=== PATIENT | female | born 1955 | race Caucasian/White ===

== ENCOUNTER → 2016-12-23 | Outpatient (CLI) | payer BC, OTHER ==
[2015-07-01 07:36] VITALS: BP 116/71
[~2016-12-23] MED LIST: COLE1TAB2 PO; CYCL10TA2 PO; DIPH50CA PO; GABA800T2 PO; HYDR10SY16 PO; NAPR220T70 PO; OXYC-328 PO; PANT40TA3 PO; SUMA100T3 PO; TRAM50TA PO; TRIA15CR TP; ZOLP5TAB5 PO
--- NOTE | 2016-12-23 13:17 | RAD ---
DATE: 12/23/2016 EXAM: DIGITAL SCREEN BILAT W/CAD HISTORY: Routine screening COMPARISON: Baseline study This study was interpreted with the benefit of Computerized Aided Detection (CAD). The breast parenchyma shows scattered fibroglandular densities. Breast parenchyma level B. FINDINGS: There is an 8 mm smooth lobulated nodule projected over the posterolateral aspect of the left breast, probably lying at the 3-4 o'clock location. This is most likely an intramammary lymph node. Multiple other similar lymph node type densities are present in both axillary regions. No other unusual breast densities are seen. No microcalcifications are identified. IMPRESSION: Small left breast nodule as described above. A left breast ultrasound is suggested for further evaluation. BI-RADS CATEGORY: 0 INCOMPLETE: NEEDS ADDITIONAL IMAGING EVALUATION AND/OR PRIOR MAMMOGRAMS FOR COMPARISON. RECOMMENDED FOLLOW-UP: ADD ADDITIONAL IMAGING PQRS compliance statement: Patient information was entered into a reminder system with a target due date for the next mammogram. Mammography is a sensitive method for finding small breast cancers, but it does not detect them all and is not a substitute for careful clinical examination. A negative mammogram does not negate a clinically suspicious finding and should not result in delay in biopsying a clinically suspicious abnormality. "Our facility is accredited by the [employer] Mammography Program."
--- NOTE | 2016-12-23 17:58 | RAD ---
Right knee, 2 views, 12/23/2016: History: Right anterior knee pain No fracture or dislocation is identified. The knee joint space is well-preserved. There is no radiographic evidence of a joint effusion. IMPRESSION: No acute right knee abnormality is detected.
== END | disposition home or self-care (01) ==
LOC: MAMMO 10:30
PROVIDERS: ATTEND Family Medicine
DX: Z12.31 Encounter for screening mammogram for malignant neoplasm of breast (principal); M25.561 Pain in right knee
CPT/HCPCS: 73560; G0202; 77067

== ENCOUNTER → 2017-01-06 | Outpatient (CLI) | payer BC, OTHER ==
[2015-07-01 07:36] VITALS: BP 116/71
--- NOTE | 2017-01-06 10:17 | RAD ---
Ultrasound of the left breast 01/06/2017 Clinical history: Mass seen within the posterior aspect of the left breast on recent mammogram. Technique: A real-time ultrasound examination of the left breast from the 3 to 5:00 position was performed. Multiple images were obtained. Findings: Comparison is made to the patient's mammogram dated 12/23/2016. Two small rounded oval-shaped echogenic masses are seen within the left breast which measure 3 mm and 8 mm in size. They are consistent with small lipomas. The nodule seen within the posterior aspect of the left breast is not visualized on sonography. Its mammographic appearance is consistent with an intramammary lymph node. No significant solid mass is seen within the visualized portions of the left breast. Impression: The nodule seen on the patient's recent mammogram is not visualized by ultrasound. Its mammographic appearance is consistent with an intramammary lymph node. I would recharacterize the patient's mammogram as a BI-RADS Category 2 benign findings with a recommendation for routine yearly screening mammography for follow-up. Patient information was entered into the reminder system with a target date for the patient's next screening mammogram of 12/23/2017.
== END | disposition home or self-care (01) ==
LOC: US 15:46
PROVIDERS: ATTEND Family Medicine
DX: N63 Unspecified lump in breast (principal)
CPT/HCPCS: 76641

== ENCOUNTER 2017-02-18 15:58 | Emergency (ER) | payer BC, OTHER ==
[~2017-02-18] VITALS: Ht 171.4 cm; Wt 83.9 kg
[2017-02-18] MEDS ORDERED: HYDROcodone/APAP 5/325MG 1 TAB TABLET PO ONE (16:30)
--- NOTE | 2017-02-18 16:57 | RAD ---
Right RIBS with chest, 02/18/2017: History: Right-sided pain, injury No rib fracture is identified. There is no evidence of underlying pneumothorax, hemothorax or pulmonary infiltrate. The heart size is normal. IMPRESSION: No acute right rib abnormality is detected.
[2017-02-18] MEDS ORDERED: HYDR-971 PO (17:20)
--- NOTE | 2017-02-18 17:20 | PHYS DOC ---
Past Medical History Past Medical History: Arthritis, Fibromyalgia, [place], Migraines Additional Past Medical Histor: heart murmur, osteoporosis Past Surgical History: Cholecystectomy, Hysterectomy Additional Past Surgical Histo: laparoscopy Alcohol Use: None Drug Use: None Adult General Chief Complaint Chief Complaint: RIB PAIN HPI HPI Patient is a 61 year old female who presents here today complaining of right sided rib pain that occurred yesterday while she was leaning on a rock wall. Patient denies any history of hypertension diabetes liver longer kidney problems. Patient has had a history of seizures in the distant past. Patient has a history of a cholecystectomy as well as a hysterectomy. Patient denies any heart problems in the past although she reports that she was told she had a minor SC by her primary care physician but never received just didn't and had a normal exercise stress test. Patient does not smoke or drink. Patient denies any fevers shakes chills nausea vomiting or diarrhea. Patient reports she has a nonproductive cough that increases the pain when she coughs. Patient says the pain increases with deep inspiration. Patient reports that she's been taking Aleve for her pain. Review of Systems Review of Systems Constitutional: Denies fever or chills [] Eyes: Denies change in visual acuity, redness, or eye pain [] All other review systems are negative except as documented in the history of present illness portion. Current Medications Current Medications Current Medications Medications (Trade) Dose Ordered Sig/Eder Start Time Stop Time Status Last Admin Dose Admin Acetaminophen/ Hydrocodone Bitart (Lortab 5/325) 1 tab 1X ONCE 02/18/17 16:30 02/18/17 16:31 DC 02/18/17 16:36 1 TAB Allergies Allergies Allergies Coded Allergies Type Severity Reaction Last Updated Verified phenytoin Allergy Intermediate rash 06/30/15 Yes Physical Exam Physical Exam Review of systems: Constitutional: Denies fever or chills Eyes: Denies change in visual acuity, redness, or eye pain ] All other review systems are negative except as documented in the history of present illness portion. Physical exam: Constitutional: Well developed, well nourished, no acute distress, non-toxic appearance. [] HENT: Normocephalic, atraumatic, bilateral external ears normal, Eyes: conjunctiva normal, no discharge. [] Neck: Normal range of motion, no tenderness, supple, no stridor. [] Cardiovascular:Heart rate regular rhythm, Lungs & Thorax: Bilateral breath sounds clear to auscultation [] Abdomen: Bowel sounds normal, soft, no tenderness, no masses, no pulsatile masses. [] Skin: Warm, dry, no erythema, no rash. [] Back: No tenderness, no CVA tenderness. [] Extremities: No tenderness, no cyanosis, no clubbing, ROM intact, no edema. [] Neurologic: Alert and oriented X 3, normal motor function, normal sensory function, no focal deficits noted. [] Psychologic: Affect normal, judgement normal, mood normal. [] Patient's physical exam was significant for tenderness to palpation to her right lower ribs. Patient has no tenderness palpation to her right upper quadrant. Patient not present with signs or symptoms consistent with abdominal pain or liver injury. Patient has no crepitance. Patient's lungs are clear. Current Patient Data Vital Signs Vital Signs Date Time Temp Pulse Resp B/P (MAP) Pulse Ox O2 Delivery O2 Flow Rate FiO2 02/18/17 16:36 20 95 Room Air 02/18/17 16:07 97.6 73 147/70 (95) 97.6 EKG EKG [] Radiology/Procedures Radiology/Procedures [] Impressions: Chest x-ray revealed no acute fracture or pneumothorax. By ER physician. Course & Med Decision Making Course & Med Decision Making Pertinent Labs and Imaging studies reviewed. (See chart for details) []This 61-year-old female who presents here today secondary to right lower rib pain secondary to likely traumatic injury from leaning up against a brick wall. Patient's x-rays unremarkable. Patient's exam is unremarkable except for tenderness to palpation. Patient be discharged home with adequate analgesia instructions follow-up with primary care physician. Efren Disclaimer Efren Disclaimer This electronic medical record was generated, in whole or in part, using a voice recognition dictation system. Departure Departure Impression: Primary Impression: Costochondral chest pain Additional Impressions: Costochondritis, acute Rib injury Disposition: HOME, SELF-CARE Condition: IMPROVED Referrals: BRADLEY SOSA MD (PCP) Patient Instructions: Chest Wall Pain Scripts Hydrocodone/Apap 5-325 (NORCO 5-325 TABLET) 1 Each Tablet 1 TAB PO QID Y for PAIN, #10 TAB Prov: MO MCMAHAN MD 9/22/17 Problem Qualifiers MO MCMAHAN MD Feb 18, 2017 17:20
[2017-02-18 17:30] VITALS: BP 142/73
== END 2017-02-18 17:41 | disposition home or self-care (01) ==
LOC: ER 15:58
DX: S29.9XXA Unspecified injury of thorax, initial encounter (principal); M94.0 Chondrocostal junction syndrome [Tietze]; M19.90 Unspecified osteoarthritis, unspecified site; M79.7 Fibromyalgia; M81.0 Age-related osteoporosis without current pathological fracture; I25.2 Old myocardial infarction; G43.909 Migraine, unspecified, not intractable, without status migrainosus; Z88.8 Allergy status to other drugs, medicaments and biological substances; X58.XXXA Exposure to other specified factors, initial encounter; Y93.89 Activity, other specified; Y92.89 Other specified places as the place of occurrence of the external cause; Y99.8 Other external cause status
CPT/HCPCS: 71101; 99284-25

== ENCOUNTER → 2017-11-10 | Outpatient (CLI) | payer BC, OTHER ==
[~2017-11-10] MED LIST changes: -COLE1TAB2 PO; +CONTRAST GIVEN. MC; -CYCL10TA2 PO; -DIPH50CA PO; -GABA800T2 PO; -HYDR10SY16 PO; -NAPR220T70 PO; -OXYC-328 PO; -PANT40TA3 PO; -SUMA100T3 PO; -TRAM50TA PO; -TRIA15CR TP; -ZOLP5TAB5 PO
[2017-11-10] MEDS: IOHEXOL 300 MG/ML 100ML VIAL. IV (09:22)
== END | disposition home or self-care (01) ==
LOC: CT 08:51
DX: R91.8 Other nonspecific abnormal finding of lung field (principal)
CPT/HCPCS: 71260; Q9967

== ENCOUNTER → 2018-05-05 | Outpatient (CLI) | payer BC, OTHER ==
[2017-08-20 15:45] VITALS: BP 135/72
[~2018-05-05] MED LIST changes: +AMOX875T PO; +BUTA1TAB23 PO; +COLE1TAB2 PO; -CONTRAST GIVEN. MC; +CYCL10TA2 PO; +DIPH50CA PO; +GABA800T3 PO; +HYDR-3164 PO; +HYDR10SY16 PO; +LACT1CAP19 PO; +NAPR220T70 PO; +OXYC1TAB22 PO; +PANT40TA3 PO; +SUMA100T3 PO; +TRAM50TA PO; +TRIA15CR TP; +ZOLP5TAB5 PO
--- NOTE | 2018-05-08 13:48 | RAD ---
DATE: May 05, 2018 EXAM: DIGITAL SCREEN BILAT W/CAD HISTORY: Screening study. COMPARISON: December 23, 2016. This study was interpreted with the benefit of Computerized Aided Detection (CAD). FINDINGS: Breast Density: FATTY The breast parenchyma is primarily fatty replaced. Breast parenchyma level density A.. There are no dominant suspicious masses, suspicious microcalcifications or evidence of architectural distortion. Again seen is a nodule within the lateral aspect of the left breast posteriorly which is stable and may represent a benign intramammary lymph node. IMPRESSION: No mammographic indicators for malignancy. BI-RADS CATEGORY: 2 BENIGN FINDING RECOMMENDED FOLLOW-UP: 12M 12 MONTH FOLLOW-UP PQRS compliance statement: Patient information was entered into a reminder system with a target due date May 06, 2019 for the next mammogram. Mammography is a sensitive method for finding small breast cancers, but it does not detect them all and is not a substitute for careful clinical examination. A negative mammogram does not negate a clinically suspicious finding and should not result in delay in biopsying a clinically suspicious abnormality. "Our facility is accredited by the [employer] Mammography Program." The patient's breast density may affect the ability of mammography to detect breast cancer. There are 4 categories of breast density, A, B, C and D. Breast density A means that most of the breast tissue is replaced with adipose tissue and therefore is not dense. Breast density B means that the breast tissue is mildly dense and scattered. Breast density C means that the breast tissue is heterogeneously dense. Breast density D means that the breast tissue is very dense. Breast densities especially C and D may decrease the sensitivity of mammography to detect breast cancer. Therefore, the patient may benefit from 3-D breast mammography (3D breast tomography) as a part of their screening mammogram. Insurance may or may not pay for this additional imaging. The patient's breast density based on today's mammogram is category A.
== END | disposition home or self-care (01) ==
LOC: MAMMO 14:39
PROVIDERS: ATTEND Family Medicine
DX: Z12.31 Encounter for screening mammogram for malignant neoplasm of breast (principal)
CPT/HCPCS: 77067

== ENCOUNTER 2018-06-13 15:05 | Inpatient (IN) | payer BC, OTHER ==
[~2018-06-13] VITALS: Ht 170.2 cm; Wt 83.2 kg
[~2018-06-13 15:05] MED LIST changes: -GABA800T3 PO; +GABA800T5 PO; -PANT40TA3 PO; +PANT40TA77 PO
--- NOTE | 2018-06-13 15:17 | PHYS DOC ---
Past Medical History Past Medical History: Arthritis, Fibromyalgia, [place], Migraines Additional Past Medical Histor: heart murmur, osteoporosis Past Surgical History: Appendectomy, Cholecystectomy, Hysterectomy Additional Past Surgical Histo: laparoscopy Alcohol Use: None Drug Use: None Adult General Chief Complaint Chief Complaint: NEURO SYMPTOMS/DEFICITS [facility] HPI Patient is a 63 year old female who presents with vision changes. Patient states she was working at her job at [employer] around 9:00 this morning when she had onset of some vision change in the right eye. The patient does not have vision loss but she describes seeing a cervical in her visual field. The cervical does move and corresponds to her extraocular movements. No eye pain. No discharge. She has been well until onset of symptoms. Patient states the symptoms have caused her to feel mildly dizzy over the course of the day. No nausea or vomiting. Denies history of similar symptoms but does endorse a history of other chronic health problems including IBS, fibromyalgia, osteoarthritis. Review of Systems Review of Systems Constitutional: Denies fever Eyes: as described above HENT: Denies nasal congestion Respiratory: Denies cough or shortness of breath Cardiovascular: No additional information not addressed in HPI GI: Denies nausea or vomiting : Denies dysuria Musculoskeletal: Denies Integument: Denies rash or skin lesions Neurologic: Denies headache or focal neurologic complaints Endocrine: Denies polyuria All other systems were reviewed and found to be within normal limits, except as documented in this note. Current Medications Current Medications Current Medications Medications (Trade) Dose Ordered Sig/Eder Start Time Stop Time Status Last Admin Dose Admin Fluorescein Sodium (Ful-Florina) 1 strip 1X ONCE 06/13/18 16:00 06/13/18 16:01 Cancel Proparacaine HCl/ Fluorescein Sodium (Flucaine Eye Drops) 1 drop 1X ONCE 06/13/18 17:15 06/13/18 17:16 DC Tetracaine HCl (Tetracaine) 1 drop 1X ONCE 06/13/18 16:00 06/13/18 16:01 DC 06/13/18 16:57 1 DROP Allergies Allergies Allergies Coded Allergies Type Severity Reaction Last Updated Verified phenytoin Allergy Intermediate rash 06/30/15 Yes Physical Exam Physical Exam Constitutional: Well developed, well nourished, no acute distress, non-toxic appearance HENT: Normocephalic, atraumatic, bilateral external ears normal, oropharynx moist Eyes: PERRLA, EOMI, conjunctiva normal Neck: Normal range of motion, no bruits Cardiovascular:Heart rate regular rhythm, no murmur Lungs & Thorax: Bilateral breath sounds clear to auscultation Abdomen: Bowel sounds normal, soft, no tenderness Skin: Warm, dry, no erythema, no rash Extremities: No tenderness, no edema Neurologic: Alert and oriented X 3, normal motor function, cranial nerves II- XII intact bilaterally, normal steady gait. 5/5 motor strength in all extremities. Subjective vision defect described above. Psychologic: Affect normal, judgement normal, mood normal Current Patient Data Vital Signs Vital Signs Date Time Temp Pulse Resp B/P (MAP) Pulse Ox O2 Delivery O2 Flow Rate FiO2 06/13/18 17:42 58 16 99 06/13/18 15:10 98.6 171/81 (111) Room Air 98.6 Lab Values Laboratory Tests Test 06/13/18 15:30 06/13/18 16:45 White Blood Count 5.8 x10^3/uL (4.0-11.0) Red Blood Count 4.47 x10^6/uL (3.50-5.40) Hemoglobin 13.0 g/dL (12.0-15.5) Hematocrit 38.0 % (36.0-47.0) Mean Corpuscular Volume 85 fL (79-100) Mean Corpuscular Hemoglobin 29 pg (25-35) Mean Corpuscular Hemoglobin Concent 34 g/dL (31-37) Red Cell Distribution Width 13.3 % (11.5-14.5) Platelet Count 322 x10^3/uL (140-400) Neutrophils (%) (Auto) 55 % (31-73) Lymphocytes (%) (Auto) 31 % (24-48) Monocytes (%) (Auto) 9 % (0-9) Eosinophils (%) (Auto) 4 % (0-3) H Basophils (%) (Auto) 1 % (0-3) Neutrophils # (Auto) 3.2 x10^3uL (1.8-7.7) Lymphocytes # (Auto) 1.8 x10^3/uL (1.0-4.8) Monocytes # (Auto) 0.5 x10^3/uL (0.0-1.1) Eosinophils # (Auto) 0.2 x10^3/uL (0.0-0.7) Basophils # (Auto) 0.1 x10^3/uL (0.0-0.2) Sodium Level 143 mmol/L (136-145) Potassium Level 3.7 mmol/L (3.5-5.1) Chloride Level 107 mmol/L (98-107) Carbon Dioxide Level 28 mmol/L (21-32) Anion Gap 8 (6-14) Blood Urea Nitrogen 12 mg/dL (7-20) Creatinine 0.8 mg/dL (0.6-1.0) Estimated GFR (Cockcroft-Gault) 72.2 Glucose Level 101 mg/dL (70-99) H Calcium Level 8.8 mg/dL (8.5-10.1) Magnesium Level 2.1 mg/dL (1.8-2.4) Creatine Kinase 162 U/L (26-192) Troponin I Quantitative < 0.017 ng/mL (0.000-0.055) Vitamin B12 Level 437 pg/mL (247-911) Serum Folate 5.89 ng/ml (3.2-20.0) Thyroid Stimulating Hormone (TSH) 2.012 uIU/mL (0.358-3.74) Urine Collection Type Unknown Urine Color Yellow Urine Clarity Clear Urine pH 6.5 Urine Specific [place] 1.010 Urine Protein Negative mg/dL (NEG-TRACE) Urine Glucose (UA) Negative mg/dL (NEG) Urine Ketones (Stick) Negative mg/dL (NEG) Urine Blood Negative (NEG) Urine Nitrite Negative (NEG) Urine Bilirubin Negative (NEG) Urine Urobilinogen Dipstick 0.2 mg/dL (0.2 mg/dL) Urine Leukocyte Esterase Small (NEG) Urine RBC Occ /HPF (0-2) Urine WBC 1-4 /HPF (0-4) Urine Squamous Epithelial Cells Few /LPF Urine Bacteria Many /HPF (0-FEW) Urine Mucus Slight /LPF Laboratory Tests 06/13/18 15:30 Laboratory Tests 06/13/18 15:30 EKG EKG No STEMI Interpretation Time: 15:25 Radiology/Procedures Radiology/Procedures Findings: Axial images of the head were obtained without contrast. Ventricles are normal size. No intracranial hemorrhage, midline shift, or mass effect. Calcification along the third ventricle is again seen. Globes and optic nerves are unremarkable. Bilateral lakeshia bullosa noted. Impression: No intracranial hemorrhage. No suspicious acute process. Course & Med Decision Making Course & Med Decision Making Pertinent Labs and Imaging studies reviewed. (See chart for details) Is evaluated immediately on arrival to her room. The patient has no signs or symptoms of CVA or TIA. She is probably complaining of vision changes in the right eye. This could represent a floater, retinal problem, ocular migraine. Her neurologic exam is nonfocal. Will check head CT. We will do intraocular pressure check and visual acuities. We'll do ultrasound of the eye. Eye exam: + near vision in all visual miller OU: 20/70 OD: 20/200 OS: 20/70 IOP: 20 Slit Lamp exam: - normal lids and lacrimal glands - PERRLA - No FB seen. Normal conjunctiva - no cell or flare. Anterior chamber is clear - stained exam reveals no uptake, no leakage of fluid. no abrasions or other lesions present. - Bedside ocular ultrasound: vitreous appears clear, no retinal detachment seen 17:15: All results are reviewed. The patient has no acute findings on her CT scan. She did ambulate to the restroom although had some difficulty walking due to some lack of balance. She did require some assistance with ambulation. Her corrected vision is documented above. Slit-lamp exam noted above. Intraocular pressure is normal. Bedside ultrasound as above. I spoke to Dr. Couch, ophthalmology, who feels that her eye complaining can be further addressed on an outpatient basis. I also spoke to the neurologist chronograph operator, Dr. Rodriguez, who did recommend inpatient evaluation including MRI with and without contrast. Patient is given an aspirin in the ER. Some additional lab studies are ordered. She is admitted to telemetry. MRI was ordered to be done routine tomorrow. All results were discussed with the patient and all of her questions were answered prior to admission. Patient was agreeable to the plan of care. Dragon Disclaimer Dragon Disclaimer This electronic medical record was generated, in whole or in part, using a voice recognition dictation system. Departure Departure Disposition: ADMITTED INPATIENT Condition: STABLE Referrals: ADOLPH KENNEY MD (PCP) HAVEN COOK DO Jun 13, 2018 15:17
[2018-06-13 15:39] LABS: BASO # 0.1 x10^3/uL (0.0-0.2); BASO % 1 % (0-3); EOS # 0.2 x10^3/uL (0.0-0.7); EOS % 4 % (0-3); LYMPH # 1.8 x10^3/uL (1.0-4.8); LYMPH % 31 % (24-48); MEAN CORPUSCULAR HEMOGLOBIN 29 pg (25-35); MEAN CORPUSCULAR HGB CONC 34 g/dL (31-37); MEAN CORPUSCULAR VOLUME 85 fL (79-100); MONO # 0.5 x10^3/uL (0.0-1.1); MONO % 9 % (0-9); NEUT # 3.2 x10^3uL (1.8-7.7); NEUT % 55 % (31-73); PLATELET COUNT 322 x10^3/uL (140-400); RED BLOOD COUNT 4.47 x10^6/uL (3.50-5.40); RED CELL DISTRIBUTION WIDTH 13.3 % (11.5-14.5); WHITE BLOOD COUNT 5.8 x10^3/uL (4.0-11.0)
[2018-06-13 15:48] LABS: CALCIUM 8.8 mg/dL (8.5-10.1); CREATININE 0.8 mg/dL (0.6-1.0); GFR 72.2; MAGNESIUM 2.1 mg/dL (1.8-2.4); POTASSIUM 3.7 mmol/L (3.5-5.1)
--- NOTE | 2018-06-13 15:58 | EKG ---
[facility] [address] [place] [address] Test Date: 2018-06-13 Test Time: 15:22:22 Pat Name: EDUARDO TORRES Department: Room: Gender: F [employer]opter [employer]: : [id number] Requested By: HAVEN COOK Order Number: [id number] Reading MD: Harrison Broderick MD Measurements Intervals [place] Rate: 65 P: 39 MS: 206 QRS: -20 QRSD: 80 T: 42 QT: 372 QTc: 387 Interpretive Statements SINUS RHYTHM Electronically Signed On 06-15-2018 14:49:21 ENGINE TURNER by Harrison Broderick MD
[2018-06-13] MEDS ORDERED: FLUORESCEIN OPHTH TEST STRIP. OD ONE (16:00)
[2018-06-13] MEDS ORDERED: TETRACAINE 0.5% OPHTH SOLUTION 4ML BOTTLE. OD ONE (16:00)
--- NOTE | 2018-06-13 16:01 | RAD ---
Examination: CT HEAD WO CONTRAST History: SUDDEN ONSET , DIZZINESS, VISION CHANGES RT EYE Comparison/Correlation: 08/20/2017 CT head without contrast Findings: Axial images of the head were obtained without contrast. Ventricles are normal size. No intracranial hemorrhage, midline shift, or mass effect. Calcification along the third ventricle is again seen. Globes and optic nerves are unremarkable. Bilateral lakeshia bullosa noted. Impression: No intracranial hemorrhage. No suspicious acute process. Electronically signed by: Musa Wilson MD (06/13/2018 3:57 PM) [id number]
[2018-06-13 16:54] LABS: BILIRUBIN,URINE NEGATIVE (NEG); CLARITY,URINE CLEAR; COLOR,URINE YELLOW; NITRITE,URINE NEGATIVE (NEG); PH,URINE 6.5; PROTEIN,URINE NEGATIVE (NEG-TRACE); UROBILINOGEN,URINE 0.2 mg/dL (0.2 mg/dL)
[2018-06-13 17:01] LABS: BACTERIA,URINE MANY /HPF (0-FEW); RBC,URINE OCC /HPF (0-2); SQUAMOUS EPITHELIAL CELL,UR FEW /LPF
[2018-06-13] MEDS ORDERED: PROPARACAINE/FLUORESCEIN 0.5 ML OPHTH DROPS. OD ONE (17:15)
[2018-06-13] MEDS ORDERED: ASPIRIN CHEWABLE 81 MG TABLET. PO ONE (18:15)
[2018-06-13] MEDS ORDERED: ACETAMINOPHEN 325 MG TABLET. PO PRN (18:15)
[2018-06-13] MEDS ORDERED: ONDANSETRON PF 4 MG/2 ML VIAL. IV PRN (18:15)
[2018-06-13] MEDS ORDERED: ZOLPIDEM 5 MG TABLET. PO PRN (18:15)
[2018-06-13] MEDS ORDERED: LISINOPRIL 10 MG TABLET PO ONE (18:15)
--- NOTE | 2018-06-13 18:53 | NUR ---
completed on transfer to 675 with Bipin SAXENA Addendum: 06/13/18 at 1854 by NICO HINOJOSA RN Amended: Links added.
[2018-06-13 19:00] VITALS: BP 132/71
--- NOTE | 2018-06-13 19:12 | PDOC2 ---
NEUROLOGY CONSULT Date of Admission Date of Admission DATE: 06/13/18 TIME: 18:58 Reason for Consult Reason for Consult: IMPRESSION: Right eye vision disturbance on 06/13/18. Gait instability x 1 month. Headaches, migraine Hx. HTN. Heat murmur. RECOMMENDATIONS/PLAN: ASA 325 mg daily. Brain MRI w/o contrast. Lab: see orders. Further studies pending MRI results. Treat medical diseases. OT/PT. Discussed with her at bedside on 06/13/18. HISTORY OF THE PRESENT ILLNESS: This is a 63-year-old female patient who has been having symptoms of gait instability for about 1 month. She developed symptoms of right eye vision disturbance today on 06/13/18 described as seeing circles in waved lines, but her left eye vision was normal. She said she never has such symptoms before. She also has headaches especially in her right side of head. No focalized sensory or motor deficits. PAST MEDICAL HISTORY: Arthritis, Fibromyalgia, [place], Migraines heart murmur, osteoporosis. PAST SURGERY HISTORY: Appendectomy, Cholecystectomy, Hysterectomy, laparoscopy. ALLERGY: Reviewed. MEDICATIONS: Refer to [facility] FAMILY HISTORY: Her mother and 2 daughters have migraine headaches. SOCIAL HISTORY: Lives with her at home. Denies current smoking, drinking, and illicit drug use. She smoked 1 pack of cigarettes a day for more than 20 years, then quit about 18 years ago. REVIEW OF SYSTEMS: Constitutional: No malnutrition, weight loss, cachexia. Head: No traumatic brain or head injury. Skin: No edema, or rash. Ear: No infection. Eyes: No vision loss or color blindness. Nose: No bleeding or purulent discharges. Hearing: No hearing decrease. Neck: No injury. Breast: No history of cancer, masses,or discharges. Cardiac: Heart murmur. HTN. Pulmonary: Former smoker. GI: No GI ulcer, GI bleeding. Urinary/genital: UTI. Endocrinologic: No cousin face, craniofacial dysmorphism, polydactyly. Skeletomuscular: No muscular atrophy, deformity. Neurological: see HP. Psychiatric: Denies drug use/abuse. Otherwise, not [id number] review of systems. PHYSICAL EXAMINATION: General appearance is in subacute distress. HEENT: Normocephalic and nontraumatic. Eyes, nose, ears, and throat are unremarkable. Neck is supple. No lymphadenopathy. No crepitus. Cardiovascular: S1, S2, regular rate and rhythm. Pulmonary: Clear to auscultation bilaterally. Abdomen: Bowel sounds are positive. Abdomen is soft, nontender, and nondistended. Extremities: No rash, lesions, or edema. No restriction of range of motion NEUROLOGICAL EXAMINATION: Alert Oriented to time, place and person. PERRL. EOMI. CN: no focal findings. Muscle tone: within normal. Muscle strength: 5 DTR: 2+ Plantar reflex: Flexor response bilaterally Gait: not examined in bed. Sensory exam: no abnormal findings. No cerebellar signs elicited. F-T-N test fine. Current Medications Current Medications Current Medications Tetracaine HCl (Tetracaine) 1 drop 1X ONCE OD Last administered on 06/13/18at 16:57; Start 06/13/18 at 16:00; Stop 06/13/18 at 16:01; Status DC Fluorescein Sodium (Ful-Florina) 1 strip 1X ONCE OD ; Start 06/13/18 at 16:00; Stop 06/13/18 at 16:01; Status Cancel Proparacaine HCl/ Fluorescein Sodium (Flucaine Eye Drops) 1 drop 1X ONCE OD ; Start 06/13/18 at 17:15; Stop 06/13/18 at 17:16; Status DC Ondansetron HCl (Zofran) 4 mg PRN Q8HRS PRN IV NAUSEA/VOMITING; Start 06/13/18 at 18:15; Stop 06/14/18 at 18:14 Acetaminophen (Tylenol) 650 mg PRN Q4HRS PRN PO FEVER; Start 06/13/18 at 18:15 ; Stop 06/14/18 at 18:14 Gabapentin (Neurontin) 800 mg BID PO ; Start 06/13/18 at 21:00 Zolpidem Tartrate (Ambien) 5 mg PRN QHS PRN PO INSOMNIA; Start 06/13/18 at 18: 15 Lisinopril (Prinivil) 10 mg 1X ONCE PO Last administered on 06/13/18at 18:38; Start 06/13/18 at 18:15; Stop 06/13/18 at 18:16; Status DC Aspirin (Children'S Aspirin) 324 mg 1X ONCE PO Last administered on 06/13/18at 18:39; Start 06/13/18 at 18:15; Stop 06/13/18 at 18:16; Status DC Active Scripts Active Amoxicillin 875 Mg Tablet 1 Tab PO BID Culturelle (Lactobacillus Rhamnosus Gg) 1 Each Cap.sprink 1 Cap PO BID Qjppge-Hxptblje-Ftsr 50-325-40 (Butalb/Acetaminophen/Caffeine) 1 Each Tablet 1 Tab PO Q8HRS [place] 5-325 Tablet (Acetaminophen/Hydrocodone Bitart) 1 Each Tablet 1 Tab PO QID PRN Aleve (Naproxen Sodium) 220 Mg Tablet 440 Mg PO BID PRN Imitrex (Sumatriptan Succinate) 100 Mg Tablet 100 Mg PO ONCE PRN Reported Zolpidem Tartrate 5 Mg Tablet 1 Tab PO QHS Gabapentin 800 Mg Tablet 1 Tab PO TID Cyclobenzaprine Hcl 10 Mg Tablet 1 Tab PO QHS Colestipol Hcl 1 Gm Tablet 1 Gm PO TID Percocet 10-325 Mg Tablet (Oxycodone/Acetaminophen) 1 Each Tablet 1 Tab PO PRN Q6HRS Tramadol Hcl 50 Mg Tablet 1 Tab PO TID PRN Allergies Allergies: Allergies Coded Allergies Type Severity Reaction Last Updated Verified onion Allergy Intermediate Unknown 06/13/18 Yes phenytoin Allergy Intermediate rash 06/30/15 Yes ROS Review of System The patient denies any associated fevers, chills, headache, ear pain, rhinorrhea , sore throat, stiff neck, productive cough, chest pain, shortness of breath, back or flank pain, abdominal pain, nausea, vomiting, diarrhea, constipation, dysuria, rash, numbness, weakness, tingling, incontinence, difficulty ambulating, or diaphoresis. Physical Exam Physical Exam General: Well developed, well nourished, no acute distress, well appearing HEENT: Pupils equally round and reactive to light, EOMI, no discharge, normal conjunctiva Neck: Supple, no nuchal rigidity, no JVD, trachea midline, no tenderness Cardiac: RRR, no murmurs, no gallops, no rubs Chest/Lungs: CTAB, no wheeze, no rhonchi, no crackles Abdomen: soft, non-distended, no guarding, no peritoneal signs, non-tender Back: No tenderness Extremities: no edema, pulses intact, non-tender,capillary refill <3 sec bilateral upper and lower extremities, Neuro: Alert and oriented x 4, no focal deficits, normal speech Vitals Vitals: Vital Signs Date Time Temp Pulse Resp B/P (MAP) Pulse Ox O2 Delivery O2 Flow Rate FiO2 06/13/18 18:38 60 162/80 06/13/18 18:12 16 99 06/13/18 15:10 98.6 Room Air 98.6 Labs Labs Laboratory Tests Test 06/13/18 15:30 06/13/18 16:45 White Blood Count 5.8 x10^3/uL (4.0-11.0) Red Blood Count 4.47 x10^6/uL (3.50-5.40) Hemoglobin 13.0 g/dL (12.0-15.5) Hematocrit 38.0 % (36.0-47.0) Mean Corpuscular Volume 85 fL (79-100) Mean Corpuscular Hemoglobin 29 pg (25-35) Mean Corpuscular Hemoglobin Concent 34 g/dL (31-37) Red Cell Distribution Width 13.3 % (11.5-14.5) Platelet Count 322 x10^3/uL (140-400) Neutrophils (%) (Auto) 55 % (31-73) Lymphocytes (%) (Auto) 31 % (24-48) Monocytes (%) (Auto) 9 % (0-9) Eosinophils (%) (Auto) 4 % (0-3) Basophils (%) (Auto) 1 % (0-3) Neutrophils # (Auto) 3.2 x10^3uL (1.8-7.7) Lymphocytes # (Auto) 1.8 x10^3/uL (1.0-4.8) Monocytes # (Auto) 0.5 x10^3/uL (0.0-1.1) Eosinophils # (Auto) 0.2 x10^3/uL (0.0-0.7) Basophils # (Auto) 0.1 x10^3/uL (0.0-0.2) Sodium Level 143 mmol/L (136-145) Potassium Level 3.7 mmol/L (3.5-5.1) Chloride Level 107 mmol/L (98-107) Carbon Dioxide Level 28 mmol/L (21-32) Anion Gap 8 (6-14) Blood Urea Nitrogen 12 mg/dL (7-20) Creatinine 0.8 mg/dL (0.6-1.0) Estimated GFR (Cockcroft-Gault) 72.2 Glucose Level 101 mg/dL (70-99) Calcium Level 8.8 mg/dL (8.5-10.1) Magnesium Level 2.1 mg/dL (1.8-2.4) Troponin I Quantitative < 0.017 ng/mL (0.000-0.055) Vitamin B12 Level 437 pg/mL (247-911) Serum Folate 5.89 ng/ml (3.2-20.0) Thyroid Stimulating Hormone (TSH) 2.012 uIU/mL (0.358-3.74) Urine Collection Type Unknown Urine Color Yellow Urine Clarity Clear Urine pH 6.5 Urine Specific [place] 1.010 Urine Protein Negative mg/dL (NEG-TRACE) Urine Glucose (UA) Negative mg/dL (NEG) Urine Ketones (Stick) Negative mg/dL (NEG) Urine Blood Negative (NEG) Urine Nitrite Negative (NEG) Urine Bilirubin Negative (NEG) Urine Urobilinogen Dipstick 0.2 mg/dL (0.2 mg/dL) Urine Leukocyte Esterase Small (NEG) Urine RBC Occ /HPF (0-2) Urine WBC 1-4 /HPF (0-4) Urine Squamous Epithelial Cells Few /LPF Urine Bacteria Many /HPF (0-FEW) Urine Mucus Slight /LPF Laboratory Tests Test 06/13/18 15:30 06/13/18 16:45 White Blood Count 5.8 x10^3/uL (4.0-11.0) Red Blood Count 4.47 x10^6/uL (3.50-5.40) Hemoglobin 13.0 g/dL (12.0-15.5) Hematocrit 38.0 % (36.0-47.0) Mean Corpuscular Volume 85 fL (79-100) Mean Corpuscular Hemoglobin 29 pg (25-35) Mean Corpuscular Hemoglobin Concent 34 g/dL (31-37) Red Cell Distribution Width 13.3 % (11.5-14.5) Platelet Count 322 x10^3/uL (140-400) Neutrophils (%) (Auto) 55 % (31-73) Lymphocytes (%) (Auto) 31 % (24-48) Monocytes (%) (Auto) 9 % (0-9) Eosinophils (%) (Auto) 4 % (0-3) Basophils (%) (Auto) 1 % (0-3) Neutrophils # (Auto) 3.2 x10^3uL (1.8-7.7) Lymphocytes # (Auto) 1.8 x10^3/uL (1.0-4.8) Monocytes # (Auto) 0.5 x10^3/uL (0.0-1.1) Eosinophils # (Auto) 0.2 x10^3/uL (0.0-0.7) Basophils # (Auto) 0.1 x10^3/uL (0.0-0.2) Sodium Level 143 mmol/L (136-145) Potassium Level 3.7 mmol/L (3.5-5.1) Chloride Level 107 mmol/L (98-107) Carbon Dioxide Level 28 mmol/L (21-32) Anion Gap 8 (6-14) Blood Urea Nitrogen 12 mg/dL (7-20) Creatinine 0.8 mg/dL (0.6-1.0) Estimated GFR (Cockcroft-Gault) 72.2 Glucose Level 101 mg/dL (70-99) Calcium Level 8.8 mg/dL (8.5-10.1) Magnesium Level 2.1 mg/dL (1.8-2.4) Troponin I Quantitative < 0.017 ng/mL (0.000-0.055) Vitamin B12 Level 437 pg/mL (247-911) Serum Folate 5.89 ng/ml (3.2-20.0) Thyroid Stimulating Hormone (TSH) 2.012 uIU/mL (0.358-3.74) Urine Collection Type Unknown Urine Color Yellow Urine Clarity Clear Urine pH 6.5 Urine Specific [place] 1.010 Urine Protein Negative mg/dL (NEG-TRACE) Urine Glucose (UA) Negative mg/dL (NEG) Urine Ketones (Stick) Negative mg/dL (NEG) Urine Blood Negative (NEG) Urine Nitrite Negative (NEG) Urine Bilirubin Negative (NEG) Urine Urobilinogen Dipstick 0.2 mg/dL (0.2 mg/dL) Urine Leukocyte Esterase Small (NEG) Urine RBC Occ /HPF (0-2) Urine WBC 1-4 /HPF (0-4) Urine Squamous Epithelial Cells Few /LPF Urine Bacteria Many /HPF (0-FEW) Urine Mucus Slight /LPF SYLWIA CARBONE MD Jun 13, 2018 19:12
[2018-06-13] MEDS ORDERED: TOPIRAMATE 25 MG TABLET. PO SCH (21:00)
[2018-06-13] MEDS: GABAPENTIN 400 MG CAPSULE. PO SCH (21:34)
[2018-06-13 22:44] VITALS: BP 105/60
[2018-06-14 01:39] LABS: BARBITURATES NEG (NEG); BENZODIAZEPINES NEG (NEG); CANNABINOIDS NEG (NEG); COCAINE NEG (NEG); METHADONE NEG (NEG); OPIATES NEG (NEG); PHENCYCLIDINE NEG (NEG)
[2018-06-14 02:00] LABS: AMPHETAMINE/METHAMPHETAMINE NEG (NEG)
[2018-06-14] MEDS ORDERED: LISI10TA2 PO (02:15)
[2018-06-14] MEDS ORDERED: DICL75TA PO (02:15)
[2018-06-14 02:44] VITALS: BP 107/62
[2018-06-14 06:37] LABS: BASO # 0.1 x10^3/uL (0.0-0.2); BASO % 1 % (0-3); EOS # 0.2 x10^3/uL (0.0-0.7); EOS % 4 % (0-3); HEMATOCRIT 39.6 % (36.0-47.0); HEMOGLOBIN 13.4 g/dL (12.0-15.5); LYMPH # 1.5 x10^3/uL (1.0-4.8); LYMPH % 29 % (24-48); MEAN CORPUSCULAR HEMOGLOBIN 29 pg (25-35); MEAN CORPUSCULAR HGB CONC 34 g/dL (31-37); MEAN CORPUSCULAR VOLUME 85 fL (79-100); MONO # 0.5 x10^3/uL (0.0-1.1); MONO % 10 % (0-9); NEUT % 56 % (31-73); PLATELET COUNT 319 x10^3/uL (140-400); RED BLOOD COUNT 4.67 x10^6/uL (3.50-5.40); WHITE BLOOD COUNT 5.4 x10^3/uL (4.0-11.0)
[2018-06-14 07:00] VITALS: BP 117/67
[2018-06-14 07:02] LABS: CALCIUM 9.1 mg/dL (8.5-10.1); CREATININE 0.9 mg/dL (0.6-1.0); POTASSIUM 4.2 mmol/L (3.5-5.1)
[2018-06-14 07:05] LABS: CHOLESTEROL/HDL RATIO 3.9
[2018-06-14] MEDS ORDERED: ASPIRIN 325 MG TABLET PO SCH (08:00)
--- NOTE | 2018-06-14 08:03 | PDOC1 ---
History and Physical Date of Admission Date of Admission DATE: 06/13/18 Identification/Chief Complaint Chief Complaint Vision changes, unsteady gait Source Source: Patient History of Present Illness History of Present Illness Pt presented to the office yesterday afternoon c/o visual disturbances that had started that morning at 9am while at work. She describes it as a shadow just lateral to her right pupil. She said that she also was having word finding issues and being able to get words out when talking to her daughter that morning. She has been having gait issues, apparently, for the past month. Denies specific weakness or numbness and tingling anywhere. She has otherwise been doing well. Past Medical History Cardiovascular: HTN, Other Pulmonary: No pertinent hx CENTRAL NERVOUS SYSTEM: Other GI: GERD, Peptic Ulcer disease Heme/Onc: No pertinent hx Hepatobiliary: No pertinent hx Psych: No pertinent hx Musculoskeletal: Osteoarthritis Rheumatologic: Fibromyalgia Infectious disease: No pertinent hx ENT: Allergic Rhinitis Renal/: No pertinent hx Endocrine: Osteopenia Dermatology: No pertinent hx Past Surgical History Past Surgical History: Cholecystectomy, Hysterectomy Family History Family History: Cancer (dad- pancreatic cancer, sister- lymphoma), Diabetes, Heart Disease, Hypertension, Kidney Disease Social History Smoke: Quit ALCOHOL: none Drugs: None Current Problem List Problem List Problems Medical Problems: (1) Gait disturbance Status: Acute (2) Vision loss Status: Acute Current Medications Current Medications Current Medications Tetracaine HCl (Tetracaine) 1 drop 1X ONCE OD Last administered on 06/13/18at 16:57; Start 06/13/18 at 16:00; Stop 06/13/18 at 16:01; Status DC Fluorescein Sodium (Ful-Florina) 1 strip 1X ONCE OD ; Start 06/13/18 at 16:00; Stop 06/13/18 at 16:01; Status Cancel Proparacaine HCl/ Fluorescein Sodium (Flucaine Eye Drops) 1 drop 1X ONCE OD ; Start 06/13/18 at 17:15; Stop 06/13/18 at 17:16; Status DC Ondansetron HCl (Zofran) 4 mg PRN Q8HRS PRN IV NAUSEA/VOMITING; Start 06/13/18 at 18:15; Stop 06/14/18 at 18:14 Acetaminophen (Tylenol) 650 mg PRN Q4HRS PRN PO FEVER; Start 06/13/18 at 18:15 ; Stop 06/14/18 at 18:14 Gabapentin (Neurontin) 800 mg BID PO Last administered on 06/13/18at 21:34; Start 06/13/18 at 21:00 Zolpidem Tartrate (Ambien) 5 mg PRN QHS PRN PO INSOMNIA Last administered on at 21:34; Start 06/13/18 at 18:15 Lisinopril (Prinivil) 10 mg 1X ONCE PO Last administered on 06/13/18at 18:38; Start 06/13/18 at 18:15; Stop 06/13/18 at 18:16; Status DC Aspirin (Children'S Aspirin) 324 mg 1X ONCE PO Last administered on 06/13/18at 18:39; Start 06/13/18 at 18:15; Stop 06/13/18 at 18:16; Status DC Aspirin ([place] Aspirin) 325 mg [id number] PO ; Start 06/14/18 at 08:00 Topiramate (Topamax) 25 mg HS PO Last administered on 06/13/18at 21:34; Start at 21:00; Stop 06/14/18 at 08:01; Status DC Active Scripts Active Amoxicillin 875 Mg Tablet 1 Tab PO BID Culturelle (Lactobacillus Rhamnosus Gg) 1 Each Cap.sprink 1 Cap PO BID Dqujdg-Qwuojwut-Offq 50-325-40 (Butalb/Acetaminophen/Caffeine) 1 Each Tablet 1 Tab PO Q8HRS [place] 5-325 Tablet (Acetaminophen/Hydrocodone Bitart) 1 Each Tablet 1 Tab PO QID PRN Aleve (Naproxen Sodium) 220 Mg Tablet 440 Mg PO BID PRN Imitrex (Sumatriptan Succinate) 100 Mg Tablet 100 Mg PO ONCE PRN Reported Lisinopril 10 Mg Tablet 1 Tab PO HS Diclofenac Sodium 75 Mg Tablet.dr 1 Tab PO BID Zolpidem Tartrate 5 Mg Tablet 1 Tab PO QHS Gabapentin 800 Mg Tablet 1 Tab PO BID Cyclobenzaprine Hcl 10 Mg Tablet 1 Tab PO QHS Colestipol Hcl 1 Gm Tablet 1 Gm PO BID Percocet 10-325 Mg Tablet (Oxycodone/Acetaminophen) 1 Each Tablet 1 Tab PO PRN Q6HRS Tramadol Hcl 50 Mg Tablet 1 Tab PO PRN DAILY Allergies Allergies: Coded Allergies: onion (Verified Allergy, Intermediate, Unknown, 06/13/18) phenytoin (Verified Allergy, Intermediate, rash, 06/30/15) ROS General: YES: Chills; No: Night Sweats PSYCHOLOGICAL ROS: No: Anxiety, Depression Eyes: Yes Decreased vision, Yes Dry eyes; No Eye Pain, No Loss of vision HEENT: No: Nasal discharge, Sore Throat ALLERGY AND IMMUNOLOGY: No: Hives, Post Nasal Drip Hematological and Lymphatic: No: Bleeding Problems, Blood Clots Respiratory: No: Cough, Shortness of breath Cardiovascular: No Chest Pain, No Palpitations, No Edema Gastrointestinal: Yes Diarrhea; No Nausea, No Vomiting, No Abdominal Pain, No Constipation Genitourinary: No Dysuria, No Urgency Musculoskeletal: No Joint Pain, No Muscle Pain Neurological: Yes Impaired Coord/balance; No Numbness/Tingling Skin: No Rash, No Skin Lesion Changes Physical Exam General: Alert, Oriented X3, Cooperative, No acute distress HEENT: Atraumatic, PERRLA, EOMI, Mucous membr. moist/pink Lungs: Clear to auscultation, Normal air movement Heart: RRR, no rubs, no gallops, no murmurs Abdomen: Normal bowel sounds, Soft, No tenderness, No hepatosplenomegaly Extremities: No clubbing, No cyanosis, No edema Skin: No rashes, No breakdown, No significant lesion Neuro: Other (pt was falling to the right while in clinic yesterday) Psych/Mental Status: Mental status NL, Mood NL Vitals Vitals Vital Signs Date Time Temp Pulse Resp B/P (MAP) Pulse Ox O2 Delivery O2 Flow Rate FiO2 06/14/18 07:00 97.9 55 16 117/67 (84) 94 Room Air 97.9 Labs Labs Laboratory Tests Test 06/13/18 15:30 06/13/18 16:45 06/14/18 00:15 06/14/18 01:00 White Blood Count 5.8 x10^3/uL (4.0-11.0) Red Blood Count 4.47 x10^6/uL (3.50-5.40) Hemoglobin 13.0 g/dL (12.0-15.5) Hematocrit 38.0 % (36.0-47.0) Mean Corpuscular Volume 85 fL (79-100) Mean Corpuscular Hemoglobin 29 pg (25-35) Mean Corpuscular Hemoglobin Concent 34 g/dL (31-37) Red Cell Distribution Width 13.3 % (11.5-14.5) Platelet Count 322 x10^3/uL (140-400) Neutrophils (%) (Auto) 55 % (31-73) Lymphocytes (%) (Auto) 31 % (24-48) Monocytes (%) (Auto) 9 % (0-9) Eosinophils (%) (Auto) 4 % (0-3) Basophils (%) (Auto) 1 % (0-3) Neutrophils # (Auto) 3.2 x10^3uL (1.8-7.7) Lymphocytes # (Auto) 1.8 x10^3/uL (1.0-4.8) Monocytes # (Auto) 0.5 x10^3/uL (0.0-1.1) Eosinophils # (Auto) 0.2 x10^3/uL (0.0-0.7) Basophils # (Auto) 0.1 x10^3/uL (0.0-0.2) Sodium Level 143 mmol/L (136-145) Potassium Level 3.7 mmol/L (3.5-5.1) Chloride Level 107 mmol/L (98-107) Carbon Dioxide Level 28 mmol/L (21-32) Anion Gap 8 (6-14) Blood Urea Nitrogen 12 mg/dL (7-20) Creatinine 0.8 mg/dL (0.6-1.0) Estimated GFR (Cockcroft-Gault) 72.2 Glucose Level 101 mg/dL (70-99) Calcium Level 8.8 mg/dL (8.5-10.1) Magnesium Level 2.1 mg/dL (1.8-2.4) Creatine Kinase 162 U/L (26-192) Troponin I Quantitative < 0.017 ng/mL (0.000-0.055) < 0.017 ng/mL (0.000-0.055) Vitamin B12 Level 437 pg/mL (247-911) Serum Folate 5.89 ng/ml (3.2-20.0) Thyroid Stimulating Hormone (TSH) 2.012 uIU/mL (0.358-3.74) Urine Collection Type Unknown Urine Color Yellow Urine Clarity Clear Urine pH 6.5 Urine Specific [place] 1.010 Urine Protein Negative mg/dL (NEG-TRACE) Urine Glucose (UA) Negative mg/dL (NEG) Urine Ketones (Stick) Negative mg/dL (NEG) Urine Blood Negative (NEG) Urine Nitrite Negative (NEG) Urine Bilirubin Negative (NEG) Urine Urobilinogen Dipstick 0.2 mg/dL (0.2 mg/dL) Urine Leukocyte Esterase Small (NEG) Urine RBC Occ /HPF (0-2) Urine WBC 1-4 /HPF (0-4) Urine Squamous Epithelial Cells Few /LPF Urine Bacteria Many /HPF (0-FEW) Urine Mucus Slight /LPF Urine Opiates Screen Neg (NEG) Urine Methadone Screen Neg (NEG) Urine Barbiturates Neg (NEG) Urine Phencyclidine Screen Neg (NEG) Urine Amphetamine/Methamphetamine Neg (NEG) Urine Benzodiazepines Screen Neg (NEG) Urine Cocaine Screen Neg (NEG) Urine Cannabinoids Screen Neg (NEG) Urine Ethyl Alcohol Neg (NEG) Test 06/14/18 05:55 White Blood Count 5.4 x10^3/uL (4.0-11.0) Red Blood Count 4.67 x10^6/uL (3.50-5.40) Hemoglobin 13.4 g/dL (12.0-15.5) Hematocrit 39.6 % (36.0-47.0) Mean Corpuscular Volume 85 fL (79-100) Mean Corpuscular Hemoglobin 29 pg (25-35) Mean Corpuscular Hemoglobin Concent 34 g/dL (31-37) Red Cell Distribution Width 13.0 % (11.5-14.5) Platelet Count 319 x10^3/uL (140-400) Neutrophils (%) (Auto) 56 % (31-73) Lymphocytes (%) (Auto) 29 % (24-48) Monocytes (%) (Auto) 10 % (0-9) Eosinophils (%) (Auto) 4 % (0-3) Basophils (%) (Auto) 1 % (0-3) Neutrophils # (Auto) 3.0 x10^3uL (1.8-7.7) Lymphocytes # (Auto) 1.5 x10^3/uL (1.0-4.8) Monocytes # (Auto) 0.5 x10^3/uL (0.0-1.1) Eosinophils # (Auto) 0.2 x10^3/uL (0.0-0.7) Basophils # (Auto) 0.1 x10^3/uL (0.0-0.2) Sodium Level 139 mmol/L (136-145) Potassium Level 4.2 mmol/L (3.5-5.1) Chloride Level 104 mmol/L (98-107) Carbon Dioxide Level 29 mmol/L (21-32) Anion Gap 6 (6-14) Blood Urea Nitrogen 14 mg/dL (7-20) Creatinine 0.9 mg/dL (0.6-1.0) Estimated GFR (Cockcroft-Gault) 63.0 Glucose Level 100 mg/dL (70-99) Calcium Level 9.1 mg/dL (8.5-10.1) Troponin I Quantitative < 0.017 ng/mL (0.000-0.055) Triglycerides Level 121 mg/dL (0-150) Cholesterol Level 191 mg/dL (0-200) LDL Cholesterol, Calculated 118 mg/dL (0-100) VLDL Cholesterol, Calculated 24 mg/dL (0-40) Non-HDL Cholesterol Calculated 142 mg/dL (0-129) HDL Cholesterol 49 mg/dL (40-60) Cholesterol/HDL Ratio 3.9 Laboratory Tests Test 06/13/18 15:30 06/13/18 16:45 06/14/18 00:15 06/14/18 01:00 White Blood Count 5.8 x10^3/uL (4.0-11.0) Red Blood Count 4.47 x10^6/uL (3.50-5.40) Hemoglobin 13.0 g/dL (12.0-15.5) Hematocrit 38.0 % (36.0-47.0) Mean Corpuscular Volume 85 fL (79-100) Mean Corpuscular Hemoglobin 29 pg (25-35) Mean Corpuscular Hemoglobin Concent 34 g/dL (31-37) Red Cell Distribution Width 13.3 % (11.5-14.5) Platelet Count 322 x10^3/uL (140-400) Neutrophils (%) (Auto) 55 % (31-73) Lymphocytes (%) (Auto) 31 % (24-48) Monocytes (%) (Auto) 9 % (0-9) Eosinophils (%) (Auto) 4 % (0-3) Basophils (%) (Auto) 1 % (0-3) Neutrophils # (Auto) 3.2 x10^3uL (1.8-7.7) Lymphocytes # (Auto) 1.8 x10^3/uL (1.0-4.8) Monocytes # (Auto) 0.5 x10^3/uL (0.0-1.1) Eosinophils # (Auto) 0.2 x10^3/uL (0.0-0.7) Basophils # (Auto) 0.1 x10^3/uL (0.0-0.2) Sodium Level 143 mmol/L (136-145) Potassium Level 3.7 mmol/L (3.5-5.1) Chloride Level 107 mmol/L (98-107) Carbon Dioxide Level 28 mmol/L (21-32) Anion Gap 8 (6-14) Blood Urea Nitrogen 12 mg/dL (7-20) Creatinine 0.8 mg/dL (0.6-1.0) Estimated GFR (Cockcroft-Gault) 72.2 Glucose Level 101 mg/dL (70-99) Calcium Level 8.8 mg/dL (8.5-10.1) Magnesium Level 2.1 mg/dL (1.8-2.4) Creatine Kinase 162 U/L (26-192) Troponin I Quantitative < 0.017 ng/mL (0.000-0.055) < 0.017 ng/mL (0.000-0.055) Vitamin B12 Level 437 pg/mL (247-911) Serum Folate 5.89 ng/ml (3.2-20.0) Thyroid Stimulating Hormone (TSH) 2.012 uIU/mL (0.358-3.74) Urine Collection Type Unknown Urine Color Yellow Urine Clarity Clear Urine pH 6.5 Urine Specific [place] 1.010 Urine Protein Negative mg/dL (NEG-TRACE) Urine Glucose (UA) Negative mg/dL (NEG) Urine Ketones (Stick) Negative mg/dL (NEG) Urine Blood Negative (NEG) Urine Nitrite Negative (NEG) Urine Bilirubin Negative (NEG) Urine Urobilinogen Dipstick 0.2 mg/dL (0.2 mg/dL) Urine Leukocyte Esterase Small (NEG) Urine RBC Occ /HPF (0-2) Urine WBC 1-4 /HPF (0-4) Urine Squamous Epithelial Cells Few /LPF Urine Bacteria Many /HPF (0-FEW) Urine Mucus Slight /LPF Urine Opiates Screen Neg (NEG) Urine Methadone Screen Neg (NEG) Urine Barbiturates Neg (NEG) Urine Phencyclidine Screen Neg (NEG) Urine Amphetamine/Methamphetamine Neg (NEG) Urine Benzodiazepines Screen Neg (NEG) Urine Cocaine Screen Neg (NEG) Urine Cannabinoids Screen Neg (NEG) Urine Ethyl Alcohol Neg (NEG) Test 06/14/18 05:55 White Blood Count 5.4 x10^3/uL (4.0-11.0) Red Blood Count 4.67 x10^6/uL (3.50-5.40) Hemoglobin 13.4 g/dL (12.0-15.5) Hematocrit 39.6 % (36.0-47.0) Mean Corpuscular Volume 85 fL (79-100) Mean Corpuscular Hemoglobin 29 pg (25-35) Mean Corpuscular Hemoglobin Concent 34 g/dL (31-37) Red Cell Distribution Width 13.0 % (11.5-14.5) Platelet Count 319 x10^3/uL (140-400) Neutrophils (%) (Auto) 56 % (31-73) Lymphocytes (%) (Auto) 29 % (24-48) Monocytes (%) (Auto) 10 % (0-9) Eosinophils (%) (Auto) 4 % (0-3) Basophils (%) (Auto) 1 % (0-3) Neutrophils # (Auto) 3.0 x10^3uL (1.8-7.7) Lymphocytes # (Auto) 1.5 x10^3/uL (1.0-4.8) Monocytes # (Auto) 0.5 x10^3/uL (0.0-1.1) Eosinophils # (Auto) 0.2 x10^3/uL (0.0-0.7) Basophils # (Auto) 0.1 x10^3/uL (0.0-0.2) Sodium Level 139 mmol/L (136-145) Potassium Level 4.2 mmol/L (3.5-5.1) Chloride Level 104 mmol/L (98-107) Carbon Dioxide Level 29 mmol/L (21-32) Anion Gap 6 (6-14) Blood Urea Nitrogen 14 mg/dL (7-20) Creatinine 0.9 mg/dL (0.6-1.0) Estimated GFR (Cockcroft-Gault) 63.0 Glucose Level 100 mg/dL (70-99) Calcium Level 9.1 mg/dL (8.5-10.1) Troponin I Quantitative < 0.017 ng/mL (0.000-0.055) Triglycerides Level 121 mg/dL (0-150) Cholesterol Level 191 mg/dL (0-200) LDL Cholesterol, Calculated 118 mg/dL (0-100) VLDL Cholesterol, Calculated 24 mg/dL (0-40) Non-HDL Cholesterol Calculated 142 mg/dL (0-129) HDL Cholesterol 49 mg/dL (40-60) Cholesterol/HDL Ratio 3.9 VTE Prophylaxis Ordered VTE Prophylaxis Devices: Yes VTE Pharmacological Prophylaxi: No Assessment/Plan Assessment/Plan Pt is a 63yo CF admitted for vision disturbances and gait disturbance 1)Vision disturbances- pt's initial CT WNL. MRI pending. Neurology following 2)HTN- well controlled with Lisinopril 10mg 3)HLD- new diagnosis. Will start statin prior to D/C 4)Prediabetes- last HbA1C was 5.7, will repeat 5)Migraine headaches- has Sumatriptan available as needed. Currently headache free 6)Insomnia- pt has Ambien available 7)IBS- pt continued on Colestid 8)OA- pt continued on Tramadol 9)Possible UTI- urine culture pending ADOLPH KENNEY MD Jun 14, 2018 08:03
[2018-06-14] MEDS ORDERED: traMADol 50 MG TABLET PO PRN (08:15)
[2018-06-14] MEDS ORDERED: SUMAtriptan SUCCINATE 100 MG TABLET PO PRN (08:15)
[2018-06-14] MEDS ORDERED: CYCLOBENZAPRINE 10 MG TABLET. PO PRN (08:15)
[2018-06-14] MEDS: GABAPENTIN 400 MG CAPSULE. PO SCH (09:00)
[2018-06-14] MEDS ORDERED: GADOBUTROL 7.5 MMOL/7.5 ML VIAL IV ONE (09:45)
[2018-06-14 11:00] VITALS: BP 125/71
[2018-06-14] MEDS ORDERED: COLESTIPOL HCL 1 GM TABLET PO SCH (11:00)
[2018-06-14 15:59] VITALS: BP 129/66
--- NOTE | 2018-06-14 16:47 | NUR ---
Radiologist notified of Dr. Meier's request for Brain MRI report at this time.
--- NOTE | 2018-06-14 17:04 | RAD ---
MRI of the Brain without and with Contrast 06/14/2018 Clinical History: Unsteady gait with right vision deficits. Technique: Unenhanced T1-weighted sagittal and axial and FLAIR, T2-weighted, gradient echo and diffusion-weighted axial images of the brain were obtained. After the intravenous administration of 7.5 cc of Gadavist, enhanced T1-weighted axial and coronal images of the brain were obtained. Findings: Comparison is made to the patient's CT scan of the head dated 06/13/2018. There is generalized parenchymal atrophy. Patchy and small scattered areas of abnormally increased signal intensity are seen within the periventricular and subcortical white matter of both cerebral hemispheres along with the jarod on the FLAIR and T2-weighted images consistent with areas of small vessel ischemic disease. No acute parenchymal abnormality is seen. No abnormal area of contrast enhancement is noted. No extra-axial fluid collection is seen. There is no MRI evidence of acute ischemia/infarction. The orbits are within normal limits. Mild mucosal thickening is seen involving the ethmoid air cells bilaterally. Normal flow voids are seen within the major vascular structures surrounding the brain parenchyma. Impression: No acute parenchymal abnormality is seen. Electronically signed by: Jimmy Sibley MD (06/14/2018 5:00 PM) [id number]
[2018-06-14] MEDS ORDERED: DOXY100C2 PO (17:49)
--- NOTE | 2018-06-14 17:50 | PDOC3 ---
Discharge Summary Visit Information Date of Admission: Jun 13, 2018 Date of Discharge: Jun 14, 2018 Admitting Diagnosis: Visual disturbance, gait disturbance Final Diagnosis Vision disturbances- not due to stroke, Sinus infection, HTN, HLD, Prediabetes, Migraine headaches, Insomnia, IBS, OA, Possible UTI Brief Hospital Course Allergies Allergies Coded Allergies Type Severity Reaction Last Updated Verified onion Allergy Intermediate Unknown 06/13/18 Yes phenytoin Allergy Intermediate rash 06/30/15 Yes Vital Signs Vital Signs Date Time Temp Pulse Resp B/P (MAP) Pulse Ox O2 Delivery O2 Flow Rate FiO2 06/14/18 15:59 98.4 94 16 129/66 (87) 94 Room Air 98.4 Lab Results Laboratory Tests Test 06/13/18 15:30 06/13/18 16:45 06/14/18 00:15 06/14/18 01:00 White Blood Count 5.8 x10^3/uL (4.0-11.0) Red Blood Count 4.47 x10^6/uL (3.50-5.40) Hemoglobin 13.0 g/dL (12.0-15.5) Hematocrit 38.0 % (36.0-47.0) Mean Corpuscular Volume 85 fL (79-100) Mean Corpuscular Hemoglobin 29 pg (25-35) Mean Corpuscular Hemoglobin Concent 34 g/dL (31-37) Red Cell Distribution Width 13.3 % (11.5-14.5) Platelet Count 322 x10^3/uL (140-400) Neutrophils (%) (Auto) 55 % (31-73) Lymphocytes (%) (Auto) 31 % (24-48) Monocytes (%) (Auto) 9 % (0-9) Eosinophils (%) (Auto) 4 % (0-3) Basophils (%) (Auto) 1 % (0-3) Neutrophils # (Auto) 3.2 x10^3uL (1.8-7.7) Lymphocytes # (Auto) 1.8 x10^3/uL (1.0-4.8) Monocytes # (Auto) 0.5 x10^3/uL (0.0-1.1) Eosinophils # (Auto) 0.2 x10^3/uL (0.0-0.7) Basophils # (Auto) 0.1 x10^3/uL (0.0-0.2) Sodium Level 143 mmol/L (136-145) Potassium Level 3.7 mmol/L (3.5-5.1) Chloride Level 107 mmol/L (98-107) Carbon Dioxide Level 28 mmol/L (21-32) Anion Gap 8 (6-14) Blood Urea Nitrogen 12 mg/dL (7-20) Creatinine 0.8 mg/dL (0.6-1.0) Estimated GFR (Cockcroft-Gault) 72.2 Glucose Level 101 mg/dL (70-99) Calcium Level 8.8 mg/dL (8.5-10.1) Magnesium Level 2.1 mg/dL (1.8-2.4) Creatine Kinase 162 U/L (26-192) Troponin I Quantitative < 0.017 ng/mL (0.000-0.055) < 0.017 ng/mL (0.000-0.055) Vitamin B12 Level 437 pg/mL (247-911) Serum Folate 5.89 ng/ml (3.2-20.0) Thyroid Stimulating Hormone (TSH) 2.012 uIU/mL (0.358-3.74) Urine Collection Type Unknown Urine Color Yellow Urine Clarity Clear Urine pH 6.5 Urine Specific [place] 1.010 Urine Protein Negative mg/dL (NEG-TRACE) Urine Glucose (UA) Negative mg/dL (NEG) Urine Ketones (Stick) Negative mg/dL (NEG) Urine Blood Negative (NEG) Urine Nitrite Negative (NEG) Urine Bilirubin Negative (NEG) Urine Urobilinogen Dipstick 0.2 mg/dL (0.2 mg/dL) Urine Leukocyte Esterase Small (NEG) Urine RBC Occ /HPF (0-2) Urine WBC 1-4 /HPF (0-4) Urine Squamous Epithelial Cells Few /LPF Urine Bacteria Many /HPF (0-FEW) Urine Mucus Slight /LPF Urine Opiates Screen Neg (NEG) Urine Methadone Screen Neg (NEG) Urine Barbiturates Neg (NEG) Urine Phencyclidine Screen Neg (NEG) Urine Amphetamine/Methamphetamine Neg (NEG) Urine Benzodiazepines Screen Neg (NEG) Urine Cocaine Screen Neg (NEG) Urine Cannabinoids Screen Neg (NEG) Urine Ethyl Alcohol Neg (NEG) Test 06/14/18 05:55 White Blood Count 5.4 x10^3/uL (4.0-11.0) Red Blood Count 4.67 x10^6/uL (3.50-5.40) Hemoglobin 13.4 g/dL (12.0-15.5) Hematocrit 39.6 % (36.0-47.0) Mean Corpuscular Volume 85 fL (79-100) Mean Corpuscular Hemoglobin 29 pg (25-35) Mean Corpuscular Hemoglobin Concent 34 g/dL (31-37) Red Cell Distribution Width 13.0 % (11.5-14.5) Platelet Count 319 x10^3/uL (140-400) Neutrophils (%) (Auto) 56 % (31-73) Lymphocytes (%) (Auto) 29 % (24-48) Monocytes (%) (Auto) 10 % (0-9) Eosinophils (%) (Auto) 4 % (0-3) Basophils (%) (Auto) 1 % (0-3) Neutrophils # (Auto) 3.0 x10^3uL (1.8-7.7) Lymphocytes # (Auto) 1.5 x10^3/uL (1.0-4.8) Monocytes # (Auto) 0.5 x10^3/uL (0.0-1.1) Eosinophils # (Auto) 0.2 x10^3/uL (0.0-0.7) Basophils # (Auto) 0.1 x10^3/uL (0.0-0.2) Sodium Level 139 mmol/L (136-145) Potassium Level 4.2 mmol/L (3.5-5.1) Chloride Level 104 mmol/L (98-107) Carbon Dioxide Level 29 mmol/L (21-32) Anion Gap 6 (6-14) Blood Urea Nitrogen 14 mg/dL (7-20) Creatinine 0.9 mg/dL (0.6-1.0) Estimated GFR (Cockcroft-Gault) 63.0 Glucose Level 100 mg/dL (70-99) Calcium Level 9.1 mg/dL (8.5-10.1) Troponin I Quantitative < 0.017 ng/mL (0.000-0.055) Triglycerides Level 121 mg/dL (0-150) Cholesterol Level 191 mg/dL (0-200) LDL Cholesterol, Calculated 118 mg/dL (0-100) VLDL Cholesterol, Calculated 24 mg/dL (0-40) Non-HDL Cholesterol Calculated 142 mg/dL (0-129) HDL Cholesterol 49 mg/dL (40-60) Cholesterol/HDL Ratio 3.9 Laboratory Tests Test 06/14/18 00:15 06/14/18 01:00 06/14/18 05:55 Troponin I Quantitative < 0.017 ng/mL (0.000-0.055) < 0.017 ng/mL (0.000-0.055) Urine Opiates Screen Neg (NEG) Urine Methadone Screen Neg (NEG) Urine Barbiturates Neg (NEG) Urine Phencyclidine Screen Neg (NEG) Urine Amphetamine/Methamphetamine Neg (NEG) Urine Benzodiazepines Screen Neg (NEG) Urine Cocaine Screen Neg (NEG) Urine Cannabinoids Screen Neg (NEG) Urine Ethyl Alcohol Neg (NEG) White Blood Count 5.4 x10^3/uL (4.0-11.0) Red Blood Count 4.67 x10^6/uL (3.50-5.40) Hemoglobin 13.4 g/dL (12.0-15.5) Hematocrit 39.6 % (36.0-47.0) Mean Corpuscular Volume 85 fL (79-100) Mean Corpuscular Hemoglobin 29 pg (25-35) Mean Corpuscular Hemoglobin Concent 34 g/dL (31-37) Red Cell Distribution Width 13.0 % (11.5-14.5) Platelet Count 319 x10^3/uL (140-400) Neutrophils (%) (Auto) 56 % (31-73) Lymphocytes (%) (Auto) 29 % (24-48) Monocytes (%) (Auto) 10 % (0-9) Eosinophils (%) (Auto) 4 % (0-3) Basophils (%) (Auto) 1 % (0-3) Neutrophils # (Auto) 3.0 x10^3uL (1.8-7.7) Lymphocytes # (Auto) 1.5 x10^3/uL (1.0-4.8) Monocytes # (Auto) 0.5 x10^3/uL (0.0-1.1) Eosinophils # (Auto) 0.2 x10^3/uL (0.0-0.7) Basophils # (Auto) 0.1 x10^3/uL (0.0-0.2) Sodium Level 139 mmol/L (136-145) Potassium Level 4.2 mmol/L (3.5-5.1) Chloride Level 104 mmol/L (98-107) Carbon Dioxide Level 29 mmol/L (21-32) Anion Gap 6 (6-14) Blood Urea Nitrogen 14 mg/dL (7-20) Creatinine 0.9 mg/dL (0.6-1.0) Estimated GFR (Cockcroft-Gault) 63.0 Glucose Level 100 mg/dL (70-99) Calcium Level 9.1 mg/dL (8.5-10.1) Triglycerides Level 121 mg/dL (0-150) Cholesterol Level 191 mg/dL (0-200) LDL Cholesterol, Calculated 118 mg/dL (0-100) VLDL Cholesterol, Calculated 24 mg/dL (0-40) Non-HDL Cholesterol Calculated 142 mg/dL (0-129) HDL Cholesterol 49 mg/dL (40-60) Cholesterol/HDL Ratio 3.9 Brief Hospital Course Pt is a 63yo CF admitted for vision disturbances and gait disturbance 1)Vision disturbances- pt's CT WNL as was her MRI. Nuerology was following. Pt to follow up with Optho on discharge 2)HTN- well controlled with Lisinopril 10mg 3)HLD- new diagnosis. Will start statin when pt comes back to clinic 4)Prediabetes- stable with HbA1C of 5.5 5)Migraine headaches- has Sumatriptan available as needed. Currently headache free 6)Insomnia- pt has Ambien available 7)IBS- pt continued on Colestid 8)OA- pt continued on Tramadol 9)Possible UTI- urine culture pending 10)Sinus infection- likely contributing to gait issues, will D/C on Doxycycline Discharge Information Condition at Discharge: Stable Follow Up: Weeks (2) Disposition/Orders: D/C to Home Scheduled Colestipol Hcl (Colestipol Hcl) 1 Gm Tablet, 1 GM PO BID for Cholesterol , ( Reported) Entered as Reported by: FESTUS GATES on 06/17/141926 Last Action: Continued on 06/14/18 08 by ADOLPH KENNEY MD Cyclobenzaprine Hcl (Cyclobenzaprine Hcl) 10 Mg Tablet, 1 TAB PO QHS for Muscle spasms, (Reported) Entered as Reported by: FESTUS GATES on 06/17/141926 Last Action: Continued on 06/14/18802 by ADOLPH KENNEY MD Doxycycline Hyclate (Doxycycline Hyclate) 100 Mg Capsule, 1 CAP PO BID for UTI and sinus infection, #14 Prescribed by: ADOLPH KENNEY MD on 06/14/181748 Gabapentin (Gabapentin) 800 Mg Tablet, 1 TAB PO BID for Nerve pain, (Reported) Entered as Reported by: FESTUS GATES on 06/17/141926 Last Action: HELD on 06/14/18802 by ADOLPH KENNEY MD Lisinopril (Lisinopril) 10 Mg Tablet, 1 TAB PO HS for hypertension, (Reported) Entered as Reported by: PAULA PETERS on 06/14/18214 Last Action: Continued on 06/14/18802 by ADOLPH KENNEY MD Tramadol Hcl (Tramadol Hcl) 50 Mg Tablet, 1 TAB PO PRN DAILY for Pain, (Reported ) Entered as Reported by: FESTUS GATES on 06/17/141926 Last Action: Continued on 06/14/18802 by ADOPLH KENNEY MD Zolpidem Tartrate (Zolpidem Tartrate) 5 Mg Tablet, 1 TAB PO QHS for Insomnia, ( Reported) Entered as Reported by: FESTUS GATES on 06/17/141926 Last Action: HELD on 06/14/18802 by ADOLPH KENNEY MD Scheduled PRN Sumatriptan Succinate (Imitrex) 100 Mg Tablet, 100 MG PO ONCE PRN for MIGRAINE HEADACHE, #3 Prescribed by: BASIA RAUSCH on 06/20/14802 Last Action: Continued on 06/14/18802 by ADOLPH KENNEY MD Discontinued Medications Amoxicillin (Amoxicillin) 875 Mg Tablet, 1 TAB PO BID, #14 Prescribed by: JAMIE BENTLEY on 08/20/17 135 Last Action: HELD on 06/14/18802 by ADOLPH KENNEY MD Butalb/Acetaminophen/Caffeine (Svjdmq-Hibfbdbc-Arsm 50-325-40) 1 Each Tablet, 1 TAB PO Q8HRS, #40 Prescribed by: JAMIE BENTLEY on 08/20/17 1352 Last Action: HELD on 06/14/18802 by ADOLPH KENNEY MD Diclofenac Sodium (Diclofenac Sodium) 75 Mg Tablet.dr, 1 TAB PO BID for Pain, ( Reported) Entered as Reported by: PAULA PETERS on 06/14/18214 Last Action: HELD on 06/14/18802 by ADOLPH KENNEY MD Hydrocodone/Apap 5-325 (Gravity 5-325 Tablet) 1 Each Tablet, 1 TAB PO QID PRN for PAIN, #10 Prescribed by: MO MCMAHAN MD on 02/18/17 1720 Last Action: HELD on 06/14/18802 by ADOLPH KENNEY MD Lactobacillus Rhamnosus Gg (Culturelle) 1 Each Cap.sprink, 1 CAP PO BID, #30 Prescribed by: JAMIE BENTLEY on 08/20/17 1352 Last Action: HELD on 06/14/18802 by ADOLPH KENNEY MD Naproxen Sodium (Aleve) 220 Mg Tablet, 440 MG PO BID PRN for PAIN, #30 Prescribed by: BASIA RAUSCH on 06/20/14802 Last Action: HELD on 06/14/18802 by ADOLPH KENNEY MD Oxycodone/Apap 10-325 (Percocet 10-325 Mg Tablet ) 1 Each Tablet, 1 TAB PO PRN Q6HRS for Pain, (Reported) Entered as Reported by: FESTUS GATES on 06/17/141926 Last Action: HELD on 06/14/18802 by MD ANNE MARIE GALICIA MISTEE M MD Jun 14, 2018 17:50
--- NOTE | 2018-06-14 18:17 | PDOC ---
PROGRESS NOTES Assessment Assessment Right eye vision disturbance on 06/13/18. Gait instability x 1 month. Headaches, migraine Hx. HTN. HLD. Heat murmur. No evidence of acute CVA this time. No evidence or orbital mass on MRI. RECOMMENDATIONS/PLAN: ASA 325 mg daily. Zocor 10 mg HS. Topamax 25 mg bid. Treat medical diseases. See ophthalmology. Discussed with her at bedside on 06/13/18. HISTORY OF THE PRESENT ILLNESS: This is a 63-year-old female patient who has been having symptoms of gait instability for about 1 month. She developed symptoms of right eye vision disturbance today on 06/13/18 described as seeing circles in waved lines, but her left eye vision was normal. She said she never has such symptoms before. She also has headaches especially in her right side of head. No focalized sensory or motor deficits. PAST MEDICAL HISTORY: Arthritis, Fibromyalgia, [place], Migraines heart murmur, osteoporosis. PAST SURGERY HISTORY: Appendectomy, Cholecystectomy, Hysterectomy, laparoscopy. ALLERGY: Reviewed. MEDICATIONS: Refer to [facility] FAMILY HISTORY: Her mother and 2 daughters have migraine headaches. SOCIAL HISTORY: Lives with her at home. Denies current smoking, drinking, and illicit drug use. She smoked 1 pack of cigarettes a day for more than 20 years, then quit about 18 years ago. REVIEW OF SYSTEMS: Constitutional: No malnutrition, weight loss, cachexia. Head: No traumatic brain or head injury. Skin: No edema, or rash. Ear: No infection. Eyes: No vision loss or color blindness. Nose: No bleeding or purulent discharges. Hearing: No hearing decrease. Neck: No injury. Breast: No history of cancer, masses,or discharges. Cardiac: Heart murmur. HTN. Pulmonary: Former smoker. GI: No GI ulcer, GI bleeding. Urinary/genital: UTI. Endocrinologic: No cousin face, craniofacial dysmorphism, polydactyly. Skeletomuscular: No muscular atrophy, deformity. Neurological: see HP. Psychiatric: Denies drug use/abuse. Otherwise, not [id number] review of systems. PHYSICAL EXAMINATION: General appearance is in no acute distress. HEENT: Normocephalic and nontraumatic. Eyes, nose, ears, and throat are unremarkable. Neck is supple. No lymphadenopathy. No crepitus. Cardiovascular: S1, S2, regular rate and rhythm. Pulmonary: Clear to auscultation bilaterally. Abdomen: Bowel sounds are positive. Abdomen is soft, nontender, and nondistended. Extremities: No rash, lesions, or edema. No restriction of range of motion NEUROLOGICAL EXAMINATION: Alert Oriented to time, place and person. PERRL. EOMI. CN: no focal findings. Muscle tone: within normal. Muscle strength: 5 DTR: 2+ Plantar reflex: Flexor response bilaterally Gait: not examined in bed. Sensory exam: no abnormal findings. No cerebellar signs elicited. F-T-N test fine. Objective Objective Vital Signs Date Time Temp Pulse Resp B/P (MAP) Pulse Ox O2 Delivery O2 Flow Rate FiO2 06/14/18 15:59 98.4 94 16 129/66 (87) 94 Room Air 98.4 Intake and Output 06/14/18 07:01 Intake Total 750 ml Output Total 500 ml Balance 250 ml Intake Oral 750 ml Output Urine Total 500 ml # Voids 3 Vitals Signs Vitals VS - Last 72 Hours, by Label Date Time Temp Pulse Resp B/P (MAP) Pulse Ox O2 Delivery O2 Flow Rate FiO2 06/14/18 15:59 98.4 94 16 129/66 (87) 94 Room Air 98.4 06/14/18 11:00 98.1 63 16 125/71 (89) 95 Room Air 98.1 06/14/18 08:00 Room Air 06/14/18 07:00 97.9 55 16 117/67 (84) 94 Room Air 97.9 06/14/18 02:44 97.5 68 16 107/62 (77) 95 Room Air 97.5 06/13/18 22:44 97.5 58 16 105/60 (75) 96 Room Air 97.5 06/13/18 20:00 Room Air 06/13/18 19:00 97.5 57 16 132/71 (91) 94 Room Air 97.5 06/13/18 19:00 97.5 57 16 132/71 (91) 94 Room Air 97.5 06/13/18 18:38 60 162/80 06/13/18 18:12 60 16 99 06/13/18 17:42 58 16 99 06/13/18 17:12 58 16 99 06/13/18 16:47 62 16 98 06/13/18 16:27 62 16 97 06/13/18 16:12 62 16 95 06/13/18 15:57 66 16 95 06/13/18 15:27 64 16 96 06/13/18 15:10 98.6 65 18 171/81 (111) 99 Room Air 98.6 Laboratory Laboratory Laboratory Tests Test 06/14/18 00:15 06/14/18 01:00 06/14/18 05:55 Troponin I Quantitative < 0.017 ng/mL (0.000-0.055) < 0.017 ng/mL (0.000-0.055) Urine Opiates Screen Neg (NEG) Urine Methadone Screen Neg (NEG) Urine Barbiturates Neg (NEG) Urine Phencyclidine Screen Neg (NEG) Urine Amphetamine/Methamphetamine Neg (NEG) Urine Benzodiazepines Screen Neg (NEG) Urine Cocaine Screen Neg (NEG) Urine Cannabinoids Screen Neg (NEG) Urine Ethyl Alcohol Neg (NEG) White Blood Count 5.4 x10^3/uL (4.0-11.0) Red Blood Count 4.67 x10^6/uL (3.50-5.40) Hemoglobin 13.4 g/dL (12.0-15.5) Hematocrit 39.6 % (36.0-47.0) Mean Corpuscular Volume 85 fL (79-100) Mean Corpuscular Hemoglobin 29 pg (25-35) Mean Corpuscular Hemoglobin Concent 34 g/dL (31-37) Red Cell Distribution Width 13.0 % (11.5-14.5) Platelet Count 319 x10^3/uL (140-400) Neutrophils (%) (Auto) 56 % (31-73) Lymphocytes (%) (Auto) 29 % (24-48) Monocytes (%) (Auto) 10 % (0-9) Eosinophils (%) (Auto) 4 % (0-3) Basophils (%) (Auto) 1 % (0-3) Neutrophils # (Auto) 3.0 x10^3uL (1.8-7.7) Lymphocytes # (Auto) 1.5 x10^3/uL (1.0-4.8) Monocytes # (Auto) 0.5 x10^3/uL (0.0-1.1) Eosinophils # (Auto) 0.2 x10^3/uL (0.0-0.7) Basophils # (Auto) 0.1 x10^3/uL (0.0-0.2) Sodium Level 139 mmol/L (136-145) Potassium Level 4.2 mmol/L (3.5-5.1) Chloride Level 104 mmol/L (98-107) Carbon Dioxide Level 29 mmol/L (21-32) Anion Gap 6 (6-14) Blood Urea Nitrogen 14 mg/dL (7-20) Creatinine 0.9 mg/dL (0.6-1.0) Estimated GFR (Cockcroft-Gault) 63.0 Glucose Level 100 mg/dL (70-99) Calcium Level 9.1 mg/dL (8.5-10.1) Triglycerides Level 121 mg/dL (0-150) Cholesterol Level 191 mg/dL (0-200) LDL Cholesterol, Calculated 118 mg/dL (0-100) VLDL Cholesterol, Calculated 24 mg/dL (0-40) Non-HDL Cholesterol Calculated 142 mg/dL (0-129) HDL Cholesterol 49 mg/dL (40-60) Cholesterol/HDL Ratio 3.9 Medication Medications Current Medications Acetaminophen (Tylenol) 650 mg PRN Q4HRS PRN PO FEVER Last administered on 06/14at 16:18; Start 06/13/18 at 18:15; Stop 06/14/18 at 18:14 Aspirin (Baylee Aspirin) 325 mg DAILYWBKFT PO Last administered on 06/14/18at 09: 00; Start 06/14/18 at 08:00 Aspirin (Children'S Aspirin) 324 mg 1X ONCE PO Last administered on 06/13/18at 18:39; Start 06/13/18 at 18:15; Stop 06/13/18 at 18:16; Status DC Colestipol HCl (Colestid) 1 gm BID@0700,2100 PO Last administered on 06/14/18at 11:00; Start 06/14/18 at 11:00 Cyclobenzaprine HCl (Flexeril) 10 mg PRN QHS PRN PO muscle spasm; Start at 08:15 Gabapentin (Neurontin) 800 mg BID PO Last administered on 06/14/18at 09:00; Start 06/13/18 at 21:00 Gadobutrol (Gadavist) 7.5 mmol 1X ONCE IV Last administered on 06/14/18at 09:54 ; Start 06/14/18 at 09:45; Stop 06/14/18 at 09:46; Status DC Lisinopril (Prinivil) 10 mg 1X ONCE PO Last administered on 06/13/18at 18:38; Start 06/13/18 at 18:15; Stop 06/13/18 at 18:16; Status DC Lisinopril (Prinivil) 10 mg HS PO ; Start 06/14/18 at 21:00 Ondansetron HCl (Zofran) 4 mg PRN Q8HRS PRN IV NAUSEA/VOMITING; Start 06/13/18 at 18:15; Stop 06/14/18 at 18:14 Sumatriptan Succinate (Imitrex) 50 mg PRN DAILY PRN PO MIGRAINE HEADACHE; Start 06/14/18 at 08:15 Topiramate (Topamax) 25 mg HS PO Last administered on 06/13/18at 21:34; Start at 21:00; Stop 06/14/18 at 08:01; Status DC Tramadol HCl (Ultram) 50 mg PRN DAILY PRN PO PAIN; Start 06/14/18 at 08:15 Zolpidem Tartrate (Ambien) 5 mg PRN QHS PRN PO INSOMNIA Last administered on at 21:34; Start 06/13/18 at 18:15 Comment Review of Relevant I have reviewed the following items tori (where applicable) has been applied. SYLWIA CARBONE MD Jun 14, 2018 18:17
--- NOTE | 2018-06-14 18:44 | NUR ---
Discharge Note: EDUARDO TORRES [address] [place] [address] Discharge instructions and discharge home medications reviewed with Patient and a copy given. All questions have been answered and understanding verbalized. The following instructions and handouts were given: Diet, activity, medication list and follow up instructions provided to patient. Discontinued lines and drains: Peripheral IV discontinued and catheter intact. Patient discharged to Home or Self Care with Family Member via Wheelchair
[2018-06-14 20:18] LABS: HEMOGLOBIN A1C 5.5 % (4.8-5.6)
[2018-06-14] MEDS ORDERED: LISINOPRIL 10 MG TABLET PO SCH (21:00)
[2018-06-14] MEDS ORDERED: SIMVASTATIN 10 MG TABLET PO SCH (21:00)
[2018-11-27] MEDS ORDERED: ZOLP10TA4 PO (20:05)
[2018-11-27] MEDS ORDERED: DICL75TA PO (20:06)
[2018-11-27] MEDS ORDERED: OXYC-411 PO (20:07)
[2018-11-27] MEDS ORDERED: HYDR-2761 PO (20:08)
[2018-11-27] MEDS ORDERED: HYDR25TA PO (20:10)
[2018-11-27] MEDS ORDERED: [UNRECOGNIZED DRUG - CODE] PO (20:12)
[2018-11-27] MEDS ORDERED: SUMA100T3 PO (20:12)
[2018-11-27] MEDS ORDERED: DICY10CA3 PO (20:14)
[2018-11-28] MEDS ORDERED: ATOR10TA60 PO (16:58)
== END 2018-06-14 18:20 | disposition home or self-care (01) | DRG 125 ==
LOC: ER 15:05 → 6 SOUTH 17:50
PROVIDERS: ADMIT Family Medicine; ATTEND Family Medicine
DX: H53.9 Unspecified visual disturbance (principal); G43.909 Migraine, unspecified, not intractable, without status migrainosus; E78.5 Hyperlipidemia, unspecified; G47.00 Insomnia, unspecified; I10 Essential (primary) hypertension; M19.90 Unspecified osteoarthritis, unspecified site; J32.9 Chronic sinusitis, unspecified; K21.9 Gastro-esophageal reflux disease without esophagitis; K58.9 Irritable bowel syndrome, unspecified; M79.7 Fibromyalgia; M81.0 Age-related osteoporosis without current pathological fracture; R73.03 Prediabetes; Z79.82 Long term (current) use of aspirin; Z80.0 Family history of malignant neoplasm of digestive organs; Z80.7 Family history of other malignant neoplasms of lymphoid, hematopoietic and related tissues; Z82.49 Family history of ischemic heart disease and other diseases of the circulatory system; Z83.3 Family history of diabetes mellitus; Z87.11 Personal history of peptic ulcer disease; Z87.891 Personal history of nicotine dependence; Z90.49 Acquired absence of other specified parts of digestive tract; Z90.710 Acquired absence of both cervix and uterus; I25.2 Old myocardial infarction; Z88.8 Allergy status to other drugs, medicaments and biological substances
CPT/HCPCS: 36415; 70450; 70553; 80048; 80061; 80307; 81001; 82550; 82607; 82746; 83036; 83735; 84443; 84484; 85025; 87086; 87186; 93005; A9585; 99285-25; G0378

== ENCOUNTER → 2018-12-21 | Outpatient (CLI) | payer BC, OTHER ==
[2018-11-28 15:16] VITALS: BP 94/51
[~2018-12-21] MED LIST changes: +ATOR10TA60 PO; +DICL75TA PO; +DICY10CA3 PO; +DOXY100C2 PO; +HYDR-2761 PO; +HYDR25TA PO; +LISI10TA2 PO; +OXYC-411 PO; +ZOLP10TA4 PO; +[UNRECOGNIZED DRUG - CODE] PO
--- NOTE | 2018-12-21 17:26 | KCIC ---
EXAM: CT Chest without IV contrast CLINICAL HISTORY: Shortness of air, left sided chest pain, pulmonary nodules. History of tobacco use COMPARISON: 11/10/2018 TECHNIQUE: CT of the chest without intravenous contrast. Axial, coronal and sagittal reformatted images were generated. ---PQRS compliance statement - One or more of the following individualized dose reduction techniques were utilized for this study: 1. Automated exposure control 2. Adjustment of the mA and/or kV according to patient size 3. Use of iterative reconstruction technique--- FINDINGS: Lack of intravenous contrast limits evaluation of solid organs, vasculature, and lymph nodes. Chest: Heart is not enlarged. No pericardial effusion. Ectasia of ascending aorta measuring up to 3.6 cm, exaggerated by motion artifact. No pleural effusion or pneumothorax. A precarinal lymph node measures 8 mm short axis, previously 9 mm. Mildly prominent axillary lymph nodes are seen for example a left axillary lymph node measures 5 mm short axis, stable. Evaluation for hilar lymphadenopathy limited on this noncontrast exam. Numerous bilateral 2-3 mm lung nodules are again seen, a escrow representative right lower lobe lung nodule (series 6 image 115) is seen. The vast majority of these were seen on prior examination and although a few appear new, these likely not seen on prior because of volume averaging given thicker (5 mm) slices on prior examination. Visualized Upper abdomen: Cholecystectomy clips are seen. Bones: Osseous structures are essentially stable. IMPRESSION: Numerous 2-3 mm lung nodules are again seen. Although the vast majority of the lung nodules were seen on prior examination, several lung nodules are not definitively seen but were likely present and obscured given thicker slice thickness on prior exam. Electronically signed by: Jet Viera MD (12/21/2018 5:23 PM) [facility]
== END | disposition home or self-care (01) ==
LOC: KCIC CT 14:55
PROVIDERS: ATTEND Family Medicine
DX: R91.8 Other nonspecific abnormal finding of lung field (principal); Z87.891 Personal history of nicotine dependence; Z90.49 Acquired absence of other specified parts of digestive tract
CPT/HCPCS: 71250

== ENCOUNTER 2019-03-02 09:25 | Inpatient (IN) | payer BC, OTHER ==
[~2019-03-02] VITALS: Ht 167.6 cm; Wt 80.9 kg
--- NOTE | 2019-03-02 09:47 | PHYS DOC ---
Past Medical History Past Medical History: Arthritis, Fibromyalgia, [place], Migraines Additional Past Medical Histor: heart murmur, osteoporosis Past Surgical History: Appendectomy, Cholecystectomy, Hysterectomy Additional Past Surgical Histo: laparoscopy Alcohol Use: None Drug Use: None Adult General Chief Complaint Chief Complaint: CHEST PAIN HPI HPI Patient is a 63 year old female that presents to the ER stating that she started having chest pain, and dizziness one hour before arrival. The patient also has nausea that is accompanying. The chest pain is located in the mi dsternal area and radiates to the back. The patient has 100.9� temperature in the ER on arrival. The patient states that she felt hot last night. She also states she started having a cough last night. She states that last week after clipping twigs in her yard her chest started hurting as well. Reports her pain is 6/10 and sharp. Review of Systems Review of Systems Constitutional: Reports fever or chills. Reports dizziness. Eyes: Denies change in visual acuity, redness, or eye pain [] HENT: Denies nasal congestion or sore throat [] Respiratory: Reports cough and shortness of breath [] Cardiovascular: No additional information not addressed in HPI [] GI: Denies abdominal pain, nausea, vomiting, bloody stools or diarrhea [] : Denies dysuria or hematuria [] Musculoskeletal: Reports back pain. Integument: Denies rash or skin lesions [] Neurologic: Denies headache, focal weakness or sensory changes [] Endocrine: Denies polyuria or polydipsia [] Complete systems were reviewed and found to be within normal limits, except as documented in this note. Current Medications Current Medications Current Medications Medications (Trade) Dose Ordered Sig/Eder Start Time Stop Time Status Last Admin Dose Admin Aspirin (Children'S Aspirin) 324 mg 1X ONCE 03/02/19 10:00 03/02/19 10:01 DC 03/02/19 10:27 324 MG Morphine Sulfate (Morphine Sulfate) 2 mg PRN Q2HR PRN 03/02/19 12:15 03/03/19 12:14 Ondansetron HCl (Zofran) 4 mg PRN Q8HRS PRN 03/02/19 12:15 03/03/19 12:14 Sodium Chloride 1,000 ml @ 100 mls/hr Q10H 03/02/19 12:01 03/03/19 12:00 Allergies Allergies Allergies Coded Allergies Type Severity Reaction Last Updated Verified onion Allergy Intermediate Unknown 06/13/18 Yes phenytoin Allergy Intermediate rash 06/30/15 Yes Physical Exam Physical Exam Constitutional: Well developed, well nourished, no acute distress, non-toxic appearance. [] HENT: Normocephalic, atraumatic, bilateral external ears normal, oropharynx moist, no oral exudates, nose normal. [] Eyes: PERRLA, EOMI, conjunctiva normal, no discharge. [] Neck: Normal range of motion, no tenderness, supple, no stridor. [] Cardiovascular:Heart rate regular rhythm, no murmur [] Lungs & Thorax: Bilateral breath sounds clear to auscultation with exception of mild crackles in the left base. Abdomen: Bowel sounds normal, soft, no tenderness, no masses, no pulsatile masses. [] Skin: Warm, dry, no erythema, no rash. [] Back: No tenderness, no CVA tenderness. [] Extremities: No tenderness, no cyanosis, no clubbing, ROM intact, no edema. [] Neurologic: Alert and oriented X 3, normal motor function, normal sensory fu nction, no focal deficits noted. [] Psychologic: Affect normal, judgement normal, mood normal. [] Current Patient Data Vital Signs Vital Signs Date Time Temp Pulse Resp B/P (MAP) Pulse Ox O2 Delivery O2 Flow Rate FiO2 03/02/19 11:09 16 03/02/19 09:25 100.9 96 183/79 (113) 98 Room Air 100.9 Lab Values Laboratory Tests Test 03/02/19 09:58 03/02/19 10:00 03/02/19 10:20 03/02/19 11:45 White Blood Count 11.3 x10^3/uL (4.0-11.0) H Red Blood Count 4.62 x10^6/uL (3.50-5.40) Hemoglobin 13.1 g/dL (12.0-15.5) Hematocrit 39.0 % (36.0-47.0) Mean Corpuscular Volume 85 fL (79-100) Mean Corpuscular Hemoglobin 28 pg (25-35) Mean Corpuscular Hemoglobin Concent 34 g/dL (31-37) Red Cell Distribution Width 13.0 % (11.5-14.5) Platelet Count 267 x10^3/uL (140-400) Neutrophils (%) (Auto) 83 % (31-73) H Lymphocytes (%) (Auto) 7 % (24-48) L Monocytes (%) (Auto) 8 % (0-9) Eosinophils (%) (Auto) 2 % (0-3) Basophils (%) (Auto) 1 % (0-3) Neutrophils # (Auto) 9.4 x10^3/uL (1.8-7.7) H Lymphocytes # (Auto) 0.8 x10^3/uL (1.0-4.8) L Monocytes # (Auto) 0.9 x10^3/uL (0.0-1.1) Eosinophils # (Auto) 0.2 x10^3/uL (0.0-0.7) Basophils # (Auto) 0.1 x10^3/uL (0.0-0.2) Prothrombin Time 12.2 SEC (11.7-14.0) Prothrombin Time INR 0.9 (0.8-1.1) Activated Partial Thromboplast Time 29 SEC (24-38) D-Dimer (Stefanie) 0.40 ug/mlFEU (0.00-0.50) Sodium Level 140 mmol/L (136-145) Potassium Level 4.3 mmol/L (3.5-5.1) Chloride Level 103 mmol/L (98-107) Carbon Dioxide Level 28 mmol/L (21-32) Anion Gap 9 (6-14) Blood Urea Nitrogen 20 mg/dL (7-20) Creatinine 0.9 mg/dL (0.6-1.0) Estimated GFR (Cockcroft-Gault) 63.0 BUN/Creatinine Ratio 22 (6-20) H Glucose Level 98 mg/dL (70-99) Calcium Level 9.7 mg/dL (8.5-10.1) Magnesium Level 2.0 mg/dL (1.8-2.4) Total Bilirubin 0.5 mg/dL (0.2-1.0) Aspartate Amino Transferase (AST) 70 U/L (15-37) H Alanine Aminotransferase (ALT) 98 U/L (14-59) H Alkaline Phosphatase 121 U/L (46-116) H Creatine Kinase 182 U/L (26-192) 150 U/L (26-192) Creatine Kinase MB (Mass) 2.8 ng/mL (0.0-3.6) 2.0 ng/mL (0.0-3.6) Creatine Kinase MB Relative Index 1.5 % (0-4) 1.3 % (0-4) Troponin I Quantitative < 0.017 ng/mL (0.000-0.055) < 0.017 ng/mL (0.000-0.055) Total Protein 8.0 g/dL (6.4-8.2) Albumin 4.1 g/dL (3.4-5.0) Albumin/Globulin Ratio 1.1 (1.0-1.7) Urine Collection Type Unknown Urine Color Yellow Urine Clarity Clear Urine pH 7.5 Urine Specific [place] 1.015 Urine Protein Negative mg/dL (NEG-TRACE) Urine Glucose (UA) Negative mg/dL (NEG) Urine Ketones (Stick) Negative mg/dL (NEG) Urine Blood Negative (NEG) Urine Nitrite Negative (NEG) Urine Bilirubin Negative (NEG) Urine Urobilinogen Dipstick 0.2 mg/dL (0.2 mg/dL) Urine Leukocyte Esterase Negative (NEG) Urine RBC 0 /HPF (0-2) Urine WBC Occ /HPF (0-4) Urine Squamous Epithelial Cells Few /LPF Urine Bacteria Moderate /HPF (0-FEW) Lactic Acid Level 1.3 mmol/L (0.4-2.0) Procalcitonin < 0.10 ng/mL (0.00-0.10) Laboratory Tests 03/02/19 09:58 Laboratory Tests 03/02/19 09:58 EKG EKG EKG interpreted by Dr. Ellis Sinus with rate of 98, with a variable baseline. It was compared to previous EKG on 11/28/18 and it is similar. NO STEMI. Radiology/Procedures Radiology/Procedures [facility] [address] [place] [address] IMAGING REPORT Signed PATIENT: EDUARDO TORRES LACCOUNT: [id number] : 1955 LOCATION: ER AGE: 63 SEX: F EXAM STATUS: REG ER ORD. PHYSICIAN: SULEMAN SAHA APRN REASON: dizziness PROCEDURE: CT HEAD WO CONTRAST CT HEAD WO CONTRAST History: Dizziness. Comparison: June 14, 2018 brain MRI. June 13, [address] Technique: Noncontrast CT imaging was performed of the head. Coronal reconstruction was performed. Exposure: One or more of the following individualized dose reduction techniques were utilized for this examination: 1. Automated exposure control 2. Adjustment of the mA and/or kV according to patient size 3. Use of iterative reconstruction technique. Findings: No intracranial hemorrhage. No mass effect. No hydrocephalus. Extra-axial spaces are unremarkable. Imaged orbits are unremarkable. Imaged paranasal sinuses and mastoid air cells are clear. Impression: 1. No acute intracranial abnormality. Electronically signed by: Drake Mansfield DO (03/02/2019 10:33 AM) [id number] DICTATED and SIGNED BY: DRAKE MANSFIELD DO DATE: 03/02/19 1033 [][facility] [address] [place] [address] IMAGING REPORT Signed PATIENT: EDUARDO TORRES LACCOUNT: [id number] : 1955 LOCATION: ER AGE: 63 SEX: F EXAM STATUS: REG ER ORD. PHYSICIAN: SULEMAN SAHA APRN REASON: chest pain PROCEDURE: CHEST PA & LATERAL CHEST PA LATERAL History: Chest pain Comparison: 11/27/2018 two-view chest x-ray exam. Findings: Frontal and lateral views of the chest were obtained. The cardiomediastinal silhouette is normal. Pulmonary vasculature is normal. The lungs are clear. No pleural effusion or pneumothorax is seen. There is no acute bone abnormality. Upper abdominal surgical clips are present IMPRESSION: No acute cardiopulmonary process. Electronically signed by: Musa Moise MD (03/02/2019 10:16 AM) [facility] DICTATED and SIGNED BY: MUSA MOISE MD DATE: 03/02/19 1016 Course & Med Decision Making Course & Med Decision Making Pertinent Labs and Imaging studies reviewed. (See chart for details) The patient has been having mid-sternal chest pain that started one hour ago. The patient is mildly tachycardic and is running a mild fever. The patient is also dizzy. The patient story sounds like recently she has been having cardiac events. Her story today sounds like it could be more infectious in nature. Will also check D-dimer as she is tachycardic and SOB. Will get EKG, Labs, UA, Chest X-ray, ASA. ER workup was unremarkable with exception of 11.[address] Will page Dr. Patel for admission. Discussed with Dr. Patel who agrees to admission. Dragon Disclaimer Dragon Disclaimer This electronic medical record was generated, in whole or in part, using a voice recognition dictation system. Departure Departure Impression: Primary Impression: Chest pain Disposition: ADMITTED INPATIENT Admitting Physician: RASTA Condition: STABLE Referrals: ADOLPH KENNEY MD (PCP) The HEART Score for CP Pts HEART Score for Chest Pain: HEART Score for Chest Pain Response (Comments) Value History Moderately Suspicious 1 ECG Nonspecific Repolarizatio 1 Age >45 - < 65 1 Risk Factors >3 Risk Factors or Hx CAD 2 Troponin < Normal Limit 0 Total 5 Risk Factors: Risk Factors: DM, Current or recent (<one month) smoker, HTN, HLP, family history of CAD, obesity. Risk Scores: Score 0 - 3: 2.5% MACE over next 6 weeks - Discharge Home Score 4 - 6: 20.3% MACE over next 6 weeks - Admit for Clinical Observation Score 7 - 10: 72.7% MACE over next 6 weeks - Early Invasive Strategies SULEMAN SAHA APRN Mar 02, 2019 09:47
[2019-03-02] MEDS ORDERED: IV NORMAL SALINE 500ML BAG 500 ML IV ONE (10:00)
[2019-03-02] MEDS ORDERED: ONDANSETRON PF 4 MG/2 ML VIAL. IV ONE (10:00)
[2019-03-02] MEDS ORDERED: ASPIRIN CHEWABLE 81 MG TABLET. PO ONE (10:00)
--- NOTE | 2019-03-02 10:15 | EKG ---
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
[2019-03-02 10:19] LABS: BASO # 0.1 x10^3/uL (0.0-0.2); BASO % 1 % (0-3); EOS # 0.2 x10^3/uL (0.0-0.7); EOS % 2 % (0-3); HEMOGLOBIN 13.1 g/dL (12.0-15.5); LYMPH # 0.8 x10^3/uL (1.0-4.8); LYMPH % 7 % (24-48); MEAN CORPUSCULAR HEMOGLOBIN 28 pg (25-35); MEAN CORPUSCULAR HGB CONC 34 g/dL (31-37); MEAN CORPUSCULAR VOLUME 85 fL (79-100); MONO # 0.9 x10^3/uL (0.0-1.1); MONO % 8 % (0-9); NEUT # 9.4 x10^3/uL (1.8-7.7); NEUT % 83 % (31-73); PLATELET COUNT 267 x10^3/uL (140-400); RED BLOOD COUNT 4.62 x10^6/uL (3.50-5.40); WHITE BLOOD COUNT 11.3 x10^3/uL (4.0-11.0)
[2019-03-02 10:19] LABS: BILIRUBIN,URINE NEGATIVE (NEG); CLARITY,URINE CLEAR; COLOR,URINE YELLOW; NITRITE,URINE NEGATIVE (NEG); PH,URINE 7.5; PROTEIN,URINE NEGATIVE (NEG-TRACE); UROBILINOGEN,URINE 0.2 mg/dL (0.2 mg/dL)
--- NOTE | 2019-03-02 10:19 | RAD ---
CHEST PA LATERAL History: Chest pain Comparison: 11/27/2018 two-view chest x-ray exam. Findings: Frontal and lateral views of the chest were obtained. The cardiomediastinal silhouette is normal. Pulmonary vasculature is normal. The lungs are clear. No pleural effusion or pneumothorax is seen. There is no acute bone abnormality. Upper abdominal surgical clips are present IMPRESSION: No acute cardiopulmonary process. Electronically signed by: Musa Wilson MD (03/02/2019 10:16 AM) [facility]
[2019-03-02 10:25] LABS: CALCIUM 9.7 mg/dL (8.5-10.1); CREATININE 0.9 mg/dL (0.6-1.0); POTASSIUM 4.3 mmol/L (3.5-5.1)
[2019-03-02 10:29] LABS: PROTHROMBIN TIME PATIENT 12.2 SEC (11.7-14.0)
[2019-03-02 10:31] LABS: ALBUMIN 4.1 g/dL (3.4-5.0); ALBUMIN/GLOBULIN RATIO 1.1 (1.0-1.7); TOTAL BILIRUBIN 0.5 mg/dL (0.2-1.0)
--- NOTE | 2019-03-02 10:36 | RAD ---
CT HEAD WO CONTRAST History: Dizziness. Comparison: June 14, 2018 brain MRI. June 13, [address] Technique: Noncontrast CT imaging was performed of the head. Coronal reconstruction was performed. Exposure: One or more of the following individualized dose reduction techniques were utilized for this examination: 1. Automated exposure control 2. Adjustment of the mA and/or kV according to patient size 3. Use of iterative reconstruction technique. Findings: No intracranial hemorrhage. No mass effect. No hydrocephalus. Extra-axial spaces are unremarkable. Imaged orbits are unremarkable. Imaged paranasal sinuses and mastoid air cells are clear. Impression: 1. No acute intracranial abnormality. Electronically signed by: Drake Mansfield DO (03/02/2019 10:33 AM) [id number]
[2019-03-02] MEDS ORDERED: MORPHINE SULFATE 2 MG/ML VIAL. IV ONE (11:00)
[2019-03-02 11:01] LABS: BACTERIA,URINE MODERATE /HPF (0-FEW); RBC,URINE 0 /HPF (0-2); SQUAMOUS EPITHELIAL CELL,UR FEW /LPF; WBC,URINE OCC /HPF (0-4)
[2019-03-02 13:22] LABS: INFLUENZA A PATIENT NEGATIVE (NEGATIVE); INFLUENZA B PATIENT NEGATIVE (NEGATIVE)
[2019-03-02] MEDS: IV NORMAL SALINE 1000ML BAG 1,000 ML IV SCH (13:42)
[2019-03-02 13:50] VITALS: BP 133/64
--- NOTE | 2019-03-02 14:00 | NUR ---
The patient, EDUARDO TORRES, 63 y/o, F admitted for chest pain, nausea and vomiting. was given written information regarding hospital policies, unit procedures and contact persons. She was brought to the unit at 1325 accompanied by his spouse. The patient was placed in a comfortable position, call light placed within reach.
--- NOTE | 2019-03-02 15:00 | NUR ---
The patient has fever of 103.5 F, nausea and vomiting of 1 episode, prn zofran given. Pagetico Patel at 1445, order received for Tylenol prn. Addendum: 03/02/19 at 1902 by ZOILA LANDAVERDE RN Jessica Patel regarding patient's febrile episodes, order received for Infectious Disease specialty referral.
[2019-03-02] MEDS: ONDANSETRON PF 4 MG/2 ML VIAL. IV PRN (15:16)
--- NOTE | 2019-03-02 15:17 | PDOC2 ---
CARDIAC CONSULT DATE OF CONSULT Date of Consult DATE: 03/02/19 TIME: 15:01 REASON FOR CONSULT Reason for Consult: Chest pain REFERRING PHYSICIAN Referring Physician: Mikey SOURCE Source: Caregiver (daughter and ), Chart review, Patient HISTORY OF PRESENT ILLNESS HISTORY OF PRESENT ILLNESS Miki is a 63 yo female admitted for complains of chills, fatigue and cough. Reports no exertional SOA but last week she was cutting some twigs about 1-2 weeks ago and at some point was having sharp midchest pain radiating to immediate back. This went away and no associated symptoms at that time. She typically mows the yard riding. Tuesday she was at the [employer] having family pictures. No recent camping and no known tick bites. Yesterday she was not feeling good. She was going to go to work today but last night she was coughing and actually coughing green sputum but was not SOA but feeling weak and was having chills and hot. Also with some abd pain but no diarrhea but has been nauseated. Also with some dizziness. She does have that intermittent sharp discomfort to her midchest radiating to her immediate back but mainly with deep breathing and cough. No recent infection and no recent antibiotics. PAST MEDICAL HISTORY Past Medical History Cardiovascular: HTN, Other (heart murmur), was told she had a mild TX in the past per pt but no LHC or any intervention, HLP Pulmonary: No pertinent hx CENTRAL NERVOUS SYSTEM: Migraine GI: GERD, Peptic Ulcer disease, IBS Heme/Onc: No pertinent hx Hepatobiliary: Cholelithiasis Psych: No pertinent hx Musculoskeletal: Osteoarthritis, costochondritis Rheumatologic: Fibromyalgia Infectious disease: No pertinent hx ENT: Allergic Rhinitis Renal/: UTI Endocrine: Osteopenia Dermatology: Eczema (dermatitis) Grav: 4 Para: 3 PAST SURGICAL HISTORY Past Surgical History Cholecystectomy (laparoscopic), Hysterectomy (BSO) FAMILY HISTORY Family History noncontributory SOCIAL HISTORY Social History Smoke: Quit ALCOHOL: occasional Drugs: None Lives: with Family CURRENT MEDICATIONS CURRENT MEDICATIONS Current Medications Medications (Trade) Dose Ordered Sig/Eder Route PRN Reason Start Time Stop Time Status Last Admin Dose Admin Aspirin (Children'S Aspirin) 324 mg 1X ONCE PO 03/02/19 10:00 03/02/19 10:01 DC 03/02/19 10:27 Sodium Chloride 500 ml @ 500 mls/hr 1X ONCE IV 03/02/19 10:00 03/02/19 10:59 DC 03/02/19 10:25 Ondansetron HCl (Zofran) 4 mg 1X ONCE IV 03/02/19 10:00 03/02/19 10:01 DC 03/02/19 10:28 Morphine Sulfate (Morphine Sulfate) 2 mg 1X ONCE IV 03/02/19 11:00 03/02/19 11:03 DC 03/02/19 11:09 Sodium Chloride 1,000 ml @ 100 mls/hr Q10H IV 03/02/19 12:01 03/03/19 12:00 03/02/19 13:42 ALLERGIES ALLERGIES: Coded Allergies: onion (Verified Allergy, Intermediate, Unknown, 06/13/18) phenytoin (Verified Allergy, Intermediate, rash, 06/30/15) ROS Review of System 14 point ROS evaluated with pertinent positives noted per HPI PHYSICAL EXAM General: Alert, Cooperative, mild distress HEENT: Atraumatic, Mucous membr. moist/pink Lungs: Clear to auscultation, Normal air movement, Other (faint basilar crackles) Heart: Regular rate (SR/ST), Normal S1, Normal S2, No murmurs Abdomen: Soft, No tenderness Extremities: No cyanosis, No edema Skin: No significant lesion, Other (skin hot to touch and sweaty) Neuro: Normal speech, Sensation intact Psych/Mental Status: Mental status NL, Other (appears tired) MUSCULOSKELETAL: Osteoarthritic changes both hands VITALS/I&O VITALS/I&O: Vital Signs Date Time Temp Pulse Resp B/P (MAP) Pulse Ox O2 Delivery O2 Flow Rate FiO2 03/02/19 13:50 103.5 104 20 133/64 (87) 97 Room Air 103.5 LABS Lab: Laboratory Tests Test 03/02/19 09:58 03/02/19 10:00 03/02/19 10:20 03/02/19 11:45 White Blood Count 11.3 x10^3/uL (4.0-11.0) H Red Blood Count 4.62 x10^6/uL (3.50-5.40) Hemoglobin 13.1 g/dL (12.0-15.5) Hematocrit 39.0 % (36.0-47.0) Mean Corpuscular Volume 85 fL (79-100) Mean Corpuscular Hemoglobin 28 pg (25-35) Mean Corpuscular Hemoglobin Concent 34 g/dL (31-37) Red Cell Distribution Width 13.0 % (11.5-14.5) Platelet Count 267 x10^3/uL (140-400) Neutrophils (%) (Auto) 83 % (31-73) H Lymphocytes (%) (Auto) 7 % (24-48) L Monocytes (%) (Auto) 8 % (0-9) Eosinophils (%) (Auto) 2 % (0-3) Basophils (%) (Auto) 1 % (0-3) Neutrophils # (Auto) 9.4 x10^3/uL (1.8-7.7) H Lymphocytes # (Auto) 0.8 x10^3/uL (1.0-4.8) L Monocytes # (Auto) 0.9 x10^3/uL (0.0-1.1) Eosinophils # (Auto) 0.2 x10^3/uL (0.0-0.7) Basophils # (Auto) 0.1 x10^3/uL (0.0-0.2) Prothrombin Time 12.2 SEC (11.7-14.0) Prothrombin Time INR 0.9 (0.8-1.1) Activated Partial Thromboplast Time 29 SEC (24-38) D-Dimer (Stefanie) 0.40 ug/mlFEU (0.00-0.50) Sodium Level 140 mmol/L (136-145) Potassium Level 4.3 mmol/L (3.5-5.1) Chloride Level 103 mmol/L (98-107) Carbon Dioxide Level 28 mmol/L (21-32) Anion Gap 9 (6-14) Blood Urea Nitrogen 20 mg/dL (7-20) Creatinine 0.9 mg/dL (0.6-1.0) Estimated GFR (Cockcroft-Gault) 63.0 BUN/Creatinine Ratio 22 (6-20) H Glucose Level 98 mg/dL (70-99) Calcium Level 9.7 mg/dL (8.5-10.1) Magnesium Level 2.0 mg/dL (1.8-2.4) Total Bilirubin 0.5 mg/dL (0.2-1.0) Aspartate Amino Transferase (AST) 70 U/L (15-37) H Alanine Aminotransferase (ALT) 98 U/L (14-59) H Alkaline Phosphatase 121 U/L (46-116) H Creatine Kinase 182 U/L (26-192) 150 U/L (26-192) Creatine Kinase MB (Mass) 2.8 ng/mL (0.0-3.6) 2.0 ng/mL (0.0-3.6) Creatine Kinase MB Relative Index 1.5 % (0-4) 1.3 % (0-4) Troponin I Quantitative < 0.017 ng/mL (0.000-0.055) < 0.017 ng/mL (0.000-0.055) Total Protein 8.0 g/dL (6.4-8.2) Albumin 4.1 g/dL (3.4-5.0) Albumin/Globulin Ratio 1.1 (1.0-1.7) Urine Collection Type Unknown Urine Color Yellow Urine Clarity Clear Urine pH 7.5 Urine Specific [place] 1.015 Urine Protein Negative mg/dL (NEG-TRACE) Urine Glucose (UA) Negative mg/dL (NEG) Urine Ketones (Stick) Negative mg/dL (NEG) Urine Blood Negative (NEG) Urine Nitrite Negative (NEG) Urine Bilirubin Negative (NEG) Urine Urobilinogen Dipstick 0.2 mg/dL (0.2 mg/dL) Urine Leukocyte Esterase Negative (NEG) Urine RBC 0 /HPF (0-2) Urine WBC Occ /HPF (0-4) Urine Squamous Epithelial Cells Few /LPF Urine Bacteria Moderate /HPF (0-FEW) Lactic Acid Level 1.3 mmol/L (0.4-2.0) Procalcitonin < 0.10 ng/mL (0.00-0.10) Test 03/02/19 12:53 03/02/19 14:30 Influenza Type A Antigen Negative (NEGATIVE) Influenza Type B Antigen Negative (NEGATIVE) Troponin I Quantitative < 0.017 ng/mL (0.000-0.055) Laboratory Tests 03/02/19 09:58 Laboratory Tests 03/02/19 09:58 ECHOCARDIOGRAM ECHOCARDIOGRAM <Conclusion> The left ventricular systolic function is normal and the ejection fraction is within normal range. The Ejection Fraction is >55%. There is normal LV segmental wall motion. DATE: 11/28/18 1332 ASSESSMENT/PLAN ASSESSMENT/PLAN 1. Fever/leukocytosis/productive cough (green): Tmax 103.5. Suspecting early onset CAP, could not rule out any potential tick bite with recent outdoor activities 2. Abd pain/nausea 3. Atypical CP: trops normal, EKG no acute changes, suspect pleuritic 4. HTN labile episodes 5. Reactive sinus tachycardia 6. Hx of Asymptomatic SB 7. Hx of Fibromyalgia Recommendations 1. UA, FLU and CXR unremarkable so far. BC pending 2. Antibiotics per PCP. Defer further imaging to PCP 3. Restart home BP med per trend. IVF 4. antipyretics. BRITTANY PABON CERTIFIED TEACHER ASSISTANT Mar 02, 2019 15:17
[2019-03-02] MEDS: MORPHINE SULFATE 2 MG/ML VIAL. IV PRN (15:19)
[2019-03-02] MEDS ORDERED: DICYCLOMINE HCL 10 MG CAPSULE PO PRN (16:45)
[2019-03-02] MEDS ORDERED: hydrOXYzine 25 MG TABLET PO PRN (16:45)
[2019-03-02] MEDS ORDERED: VANCOMYCIN PER PHARMACY MC PRN (17:45)
--- NOTE | 2019-03-02 17:59 | PDOC ---
Infectious Disease Note Vital Sign Vital Signs Vital Signs Date Time Temp Pulse Resp B/P (MAP) Pulse Ox O2 Delivery O2 Flow Rate FiO2 03/02/19 15:19 20 97 Room Air 03/02/19 13:50 103.5 104 133/64 (87) 103.5 Labs Lab Laboratory Tests Test 03/02/19 09:58 03/02/19 10:00 03/02/19 10:20 03/02/19 11:45 White Blood Count 11.3 x10^3/uL (4.0-11.0) Red Blood Count 4.62 x10^6/uL (3.50-5.40) Hemoglobin 13.1 g/dL (12.0-15.5) Hematocrit 39.0 % (36.0-47.0) Mean Corpuscular Volume 85 fL (79-100) Mean Corpuscular Hemoglobin 28 pg (25-35) Mean Corpuscular Hemoglobin Concent 34 g/dL (31-37) Red Cell Distribution Width 13.0 % (11.5-14.5) Platelet Count 267 x10^3/uL (140-400) Neutrophils (%) (Auto) 83 % (31-73) Lymphocytes (%) (Auto) 7 % (24-48) Monocytes (%) (Auto) 8 % (0-9) Eosinophils (%) (Auto) 2 % (0-3) Basophils (%) (Auto) 1 % (0-3) Neutrophils # (Auto) 9.4 x10^3/uL (1.8-7.7) Lymphocytes # (Auto) 0.8 x10^3/uL (1.0-4.8) Monocytes # (Auto) 0.9 x10^3/uL (0.0-1.1) Eosinophils # (Auto) 0.2 x10^3/uL (0.0-0.7) Basophils # (Auto) 0.1 x10^3/uL (0.0-0.2) Prothrombin Time 12.2 SEC (11.7-14.0) Prothromb Time International Ratio 0.9 (0.8-1.1) Activated Partial Thromboplast Time 29 SEC (24-38) D-Dimer (Stefanie) 0.40 ug/mlFEU (0.00-0.50) Sodium Level 140 mmol/L (136-145) Potassium Level 4.3 mmol/L (3.5-5.1) Chloride Level 103 mmol/L (98-107) Carbon Dioxide Level 28 mmol/L (21-32) Anion Gap 9 (6-14) Blood Urea Nitrogen 20 mg/dL (7-20) Creatinine 0.9 mg/dL (0.6-1.0) Estimated GFR (Cockcroft-Gault) 63.0 BUN/Creatinine Ratio 22 (6-20) Glucose Level 98 mg/dL (70-99) Calcium Level 9.7 mg/dL (8.5-10.1) Magnesium Level 2.0 mg/dL (1.8-2.4) Total Bilirubin 0.5 mg/dL (0.2-1.0) Aspartate Amino Transf (AST/SGOT) 70 U/L (15-37) Alanine Aminotransferase (ALT/SGPT) 98 U/L (14-59) Alkaline Phosphatase 121 U/L (46-116) Creatine Kinase 182 U/L (26-192) 150 U/L (26-192) Creatine Kinase MB (Mass) 2.8 ng/mL (0.0-3.6) 2.0 ng/mL (0.0-3.6) Creatine Kinase MB Relative Index 1.5 % (0-4) 1.3 % (0-4) Troponin I Quantitative < 0.017 ng/mL (0.000-0.055) < 0.017 ng/mL (0.000-0.055) Total Protein 8.0 g/dL (6.4-8.2) Albumin 4.1 g/dL (3.4-5.0) Albumin/Globulin Ratio 1.1 (1.0-1.7) Urine Collection Type Unknown Urine Color Yellow Urine Clarity Clear Urine pH 7.5 Urine Specific [place] 1.015 Urine Protein Negative mg/dL (NEG-TRACE) Urine Glucose (UA) Negative mg/dL (NEG) Urine Ketones (Stick) Negative mg/dL (NEG) Urine Blood Negative (NEG) Urine Nitrite Negative (NEG) Urine Bilirubin Negative (NEG) Urine Urobilinogen Dipstick 0.2 mg/dL (0.2 mg/dL) Urine Leukocyte Esterase Negative (NEG) Urine RBC 0 /HPF (0-2) Urine WBC Occ /HPF (0-4) Urine Squamous Epithelial Cells Few /LPF Urine Bacteria Moderate /HPF (0-FEW) Lactic Acid Level 1.3 mmol/L (0.4-2.0) Procalcitonin < 0.10 ng/mL (0.00-0.10) Test 03/02/19 12:53 03/02/19 14:30 Influenza Type A Antigen Negative (NEGATIVE) Influenza Type B Antigen Negative (NEGATIVE) Creatine Kinase 134 U/L (26-192) Creatine Kinase MB (Mass) 1.0 ng/mL (0.0-3.6) Creatine Kinase MB Relative Index 0.7 % (0-4) Troponin I Quantitative < 0.017 ng/mL (0.000-0.055) Objective Assessment Sepsis, POA Acute encephalopathy Acute abdominal pain Atypical CP Fibromyalgia h/o seizures h/o E. coli in urine Plan Plan of Care Begin Dapto, Zosyn, doxycycline and micafungin CT scan chest/abd/pelvis w/ IV contrast only Maintain hydration Repeat lactic acid and ESR now add hepatic panal in am Antiemetic as directed Maintain aspiration precautions D/w at bedside D/w nursing Thank you Avoid Vanc/zosyn/contrast sec to risk of DARA - h/o distant seizure but none for 25 years No Vaping Add lipase D/w pharmacy/nursing/ JOSEY GARZA APRN Mar 02, 2019 17:59 VAN CHAVES MD Mar 02, 2019 18:02
[2019-03-02] MEDS ORDERED: IOHEXOL 300 MG/ML 100ML VIAL. IV ONE (18:00)
[2019-03-02] MEDS: PIPERACILLIN/TAZOBACTAM 3.375 GM in IV NORMAL SALINE 50ML 50 ML IV SCH (18:02)
[2019-03-02] MEDS ORDERED: CONTRAST GIVEN. MC PRN (18:15)
--- NOTE | 2019-03-02 18:34 | RAD ---
CT chest abdomen and pelvis with contrast: History: Sepsis and abdominal pain and nausea and vomiting Axial helical images of the chest abdomen and pelvis were obtained after the administration of 75 cc IV Omni 300 contrast. Oral contrast was not utilized. Comparison: none CT OF THE CHEST WITH IV CONTRAST: There is a right upper lobe mass that measures 1.7 cm in diameter near the allan. There is a 1.2 cm x 2.1 cm left lower lobe mass. Both these masses have fuzzy borders. There is vague patchy opacities in the lung bases which are likely discoid atelectasis. There is a single mildly enlarged mediastinal lymph node just anterior to the origin of the right main bronchus. Impression: 1. Bilateral pulmonary masses are suspicious for primary lung cancer especially if the patient is a smoker. Atypical pneumonia including TB is possible. 2. Mild mediastinal lymphadenopathy. End Impression CT SCAN OF THE ABDOMEN WITH IV CONTRAST: Findings: Liver: Unremarkable Spleen: Unremarkable Pancreas: Unremarkable Adrenal Glands: Unremarkable Kidneys: Small hypoattenuating lesions in the kidneys bilaterally. There has been prior cholecystectomy. The common bile duct is mildly dilated however this is not unexpected in a postcholecystectomy patient. Evaluation of stomach and bowel is limited without oral contrast. There is no mass or lymphadenopathy. There is no free air. There is no free fluid. CT OF THE PELVIS WITH IV CONTRAST: There is no lymphadenopathy or free fluid. The bladder appears normal. There is no pericolonic inflammation. The appendix is not seen. Impression: Indeterminate lesions in the kidneys bilaterally could be cysts. The patient should have follow-up bilateral renal ultrasound as an outpatient. See CT chest with contrast. End impression PQRS Compliance Statement: One or more of the following individualized dose reduction techniques were utilized for this examination: 1. Automated exposure control 2. Adjustment of the mA and/or kV according to patient size 3. Use of iterative reconstruction technique Electronically signed by: Livan Brady III, MD (03/02/2019 6:32 PM) [facility]
[2019-03-02] MEDS ORDERED: VANCOMYCIN 2 GM in IV NORMAL SALINE 500ML BAG 500 ML IV ONE (19:00)
[2019-03-02] MEDS: DAPTOmycin (GENERIC) IVPB 480 MG in IV NORMAL SALINE 50ML 50 ML IV SCH (19:07)
--- NOTE | 2019-03-02 19:22 | CONS ---
DATE OF CONSULTATION: 03/02/2019 REQUESTING PHYSICIAN: Dr. Patel. REASON FOR CONSULTATION: Febrile illness. HISTORY OF PRESENT ILLNESS: The patient is a 63-year-old female with a history of fibromyalgia who presented with complaints of chest pain and dizziness 1 hour before arrival to the ER. She had a similar episode in November but much worse now. She is running a fever of 103.5 with complaints of body aches, sore throat, cough with phlegm production, nausea, vomiting, abdominal pain. Two days ago, she and her daughter went to [facility] and took some pictures. She denies any insects or tick bites. Denies exposure to ill contacts or recent antibiotic use. She traveled to [place] last weekend and stayed with the family. She does not vape or smoke. She has 3 dogs and a bird at home. Denies sinus congestion, dysuria or diarrhea. PAST MEDICAL HISTORY: History of urinary tract infection with Escherichia coli (resistant quinolones, tetra and ampicillin), history of seizures over 25 years ago, heart attack, heart murmur, hypertension, GERD, fibromyalgia, osteoarthritis, osteoporosis, history of ovarian cancer, IBS. PAST SURGICAL HISTORY: Appendectomy, cholecystectomy, total hysterectomy, lysis of adhesions. SOCIAL HISTORY: The patient is and lives at home. She is a former smoker. She does not vape. She has 3 dogs and a cockatiel at home. FAMILY HISTORY: Heart disease. ALLERGIES: ONION ____. MEDICATIONS: Reviewed on JUL. No antibiotics currently. REVIEW OF SYSTEMS: Per HPI, otherwise all other review of systems are negative. PHYSICAL EXAMINATION: VITAL SIGNS: Temperature 103.5, blood pressure 133/64, heart rate 104, respiratory rate 20, pulse oximetry is 97% on room air. GENERAL: The patient is lying down, sleepy, ill appearing. HEENT: Pupils equally round, normal conjunctivae. Oropharynx pink, moist. No lesions. NECK: Supple. LUNGS: Clear to auscultation. CHEST: Tender to palpation. HEART: S1 and S2. ABDOMEN: Obese, soft. Right lower quadrant tenderness with rebound. Bowel sounds present. EXTREMITIES: No gross edema or cyanosis. SKIN: Warm to touch. No signs of rash. NEUROLOGIC: Lethargic, answering simple questions appropriately. LABORATORY DATA: Today's WBC 11.3, hemoglobin 13.1, platelets 267,000. Electrolytes are unremarkable. Creatinine 0.9, BUN 20, glucose 98. Lactic acid 1.3, total bilirubin 0.5, AST 70, ALT 98. Creatinine kinase 134 from 182. Troponin less than 0.017. Procalcitonin less than 0.10, albumin 4.1. Urinalysis shows occasional wbc's and moderate bacteria. Urine and blood cultures pending. Influenza screen negative. Head CT showed no acute intracranial abnormality. Paranasal sinuses and mastoid air cells clear. Chest x-ray showed clear lungs. No pleural effusion or pneumothorax. IMPRESSION: 1. Sepsis present on admission. 2. Acute encephalopathy. 3. Acute abdominal pain. 4. Atypical chest pain. 5. Fibromyalgia. 6. History of seizures. PLAN: Recommend a CT scan chest, abdomen and pelvis with IV contrast only. Begin daptomycin, Zosyn, doxycycline and micafungin. Avoid vancomycin and meropenem with contrast secondary to risk of DARA and history of distant seizures. Maintain hydration. Repeat lactic acid and sed rate now. Hepatic panel has been added to morning labs. Antiemetic as directed. Maintain aspiration precautions. Discussed with at bedside, nursing and pharmacy. Thank you, Dr. Patel, for asking us to participate in this patient's care. Should you have further questions or concerns, please call. The patient is seen and examined and plan of care implemented by Dr. Van Chaves. VAN CHAVES MD DR: VIJAAY/kenrick JOB#: [id number] / [id number]
[2019-03-02] MEDS: traMADol 50 MG TABLET PO SCH (21:00)
[2019-03-02] MEDS: GABAPENTIN 400 MG CAPSULE. PO SCH (21:00)
[2019-03-02] MEDS: LISINOPRIL 10 MG TABLET PO SCH (21:00)
[2019-03-02] MEDS: ZOLPIDEM 5 MG TABLET. PO SCH (21:00)
[2019-03-02] MEDS: MICAFUNGIN 100 MG in IV DEXTROSE 5% 100ML 100 ML IV SCH (21:32)
[2019-03-02] MEDS: ACETAMINOPHEN 325 MG TABLET. PO PRN (21:32)
[2019-03-02] MEDS: COLESTIPOL HCL 1 GM TABLET PO SCH (22:00)
--- NOTE | 2019-03-02 22:21 | NUR ---
Dr Gibson called to ask the report of pt Chest/Abd/Pelvis CT and once got the report he ordered a routine pulmonary consult.
[2019-03-03] VITALS (9 sets, daily range): BP systolic 92–130; BP diastolic 42–68
[2019-03-03] MEDS: DOXYCYCLINE HYCLATE 100 MG in IV DEXTROSE 5% 100ML 100 ML IV SCH ×3 (00:10→20:17)
[2019-03-03] MEDS: PIPERACILLIN/TAZOBACTAM 3.375 GM in IV NORMAL SALINE 50ML 50 ML IV SCH ×4 (00:26→18:09)
[2019-03-03] MEDS: IV NORMAL SALINE 1000ML BAG 1,000 ML IV SCH ×2 (00:27→08:01)
[2019-03-03] MEDS: MORPHINE SULFATE 2 MG/ML VIAL. IV PRN (01:19)
[2019-03-03] MEDS: ONDANSETRON PF 4 MG/2 ML VIAL. IV PRN (01:20)
[2019-03-03 04:29] LABS: HEMATOCRIT 36.3 % (36.0-47.0); RED BLOOD COUNT 4.29 x10^6/uL (3.50-5.40); RED CELL DISTRIBUTION WIDTH 12.9 % (11.5-14.5); WHITE BLOOD COUNT 23.5 x10^3/uL (4.0-11.0)
[2019-03-03 04:49] LABS: CALCIUM 8.8 mg/dL (8.5-10.1); CREATININE 1.1 mg/dL (0.6-1.0); POTASSIUM 3.7 mmol/L (3.5-5.1)
[2019-03-03 04:53] LABS: ALBUMIN 3.1 g/dL (3.4-5.0); DIRECT BILIRUBIN 0.8 mg/dL (0.0-0.2); TOTAL BILIRUBIN 1.7 mg/dL (0.2-1.0); TOTAL PROTEIN 7.3 g/dL (6.4-8.2)
--- NOTE | 2019-03-03 06:34 | PDOC ---
Infectious Disease Note Subjective Subjective Mild CAMPOS. Less aches Some cough/No N/V/D/dysuria/diarrhea Still CP. ROS ROS o/w neg Vital Sign Vital Signs Vital Signs Date Time Temp Pulse Resp B/P (MAP) Pulse Ox O2 Delivery O2 Flow Rate FiO2 03/03/19 05:24 98.1 70 20 96/49 (65) 96 Room Air 98.1 Physical Exam PHYSICAL EXAM GENERAL: Looks weak but some better. NAD, coop HEENT: Pupils equally round, normal conjunctivae. Oropharynx pink, moist. No lesions. NECK: Supple. LUNGS: Clear to auscultation. CHEST: Tender to palpation but less HEART: S1 and S2. ABDOMEN: Obese, soft. Improved right lower quadrant tenderness without rebound. Bowel sounds present. EXTREMITIES: No gross edema or cyanosis. SKIN: Warm to touch. No signs of rash. NEUROLOGIC: Alert answering simple questions appropriately.Moving all ext Labs Lab Laboratory Tests Test 03/02/19 09:58 03/02/19 10:00 03/02/19 10:20 03/02/19 11:45 White Blood Count 11.3 x10^3/uL (4.0-11.0) Red Blood Count 4.62 x10^6/uL (3.50-5.40) Hemoglobin 13.1 g/dL (12.0-15.5) Hematocrit 39.0 % (36.0-47.0) Mean Corpuscular Volume 85 fL (79-100) Mean Corpuscular Hemoglobin 28 pg (25-35) Mean Corpuscular Hemoglobin Concent 34 g/dL (31-37) Red Cell Distribution Width 13.0 % (11.5-14.5) Platelet Count 267 x10^3/uL (140-400) Neutrophils (%) (Auto) 83 % (31-73) Lymphocytes (%) (Auto) 7 % (24-48) Monocytes (%) (Auto) 8 % (0-9) Eosinophils (%) (Auto) 2 % (0-3) Basophils (%) (Auto) 1 % (0-3) Neutrophils # (Auto) 9.4 x10^3/uL (1.8-7.7) Lymphocytes # (Auto) 0.8 x10^3/uL (1.0-4.8) Monocytes # (Auto) 0.9 x10^3/uL (0.0-1.1) Eosinophils # (Auto) 0.2 x10^3/uL (0.0-0.7) Basophils # (Auto) 0.1 x10^3/uL (0.0-0.2) Prothrombin Time 12.2 SEC (11.7-14.0) Prothromb Time International Ratio 0.9 (0.8-1.1) Activated Partial Thromboplast Time 29 SEC (24-38) D-Dimer (Stefanie) 0.40 ug/mlFEU (0.00-0.50) Sodium Level 140 mmol/L (136-145) Potassium Level 4.3 mmol/L (3.5-5.1) Chloride Level 103 mmol/L (98-107) Carbon Dioxide Level 28 mmol/L (21-32) Anion Gap 9 (6-14) Blood Urea Nitrogen 20 mg/dL (7-20) Creatinine 0.9 mg/dL (0.6-1.0) Estimated GFR (Cockcroft-Gault) 63.0 BUN/Creatinine Ratio 22 (6-20) Glucose Level 98 mg/dL (70-99) Calcium Level 9.7 mg/dL (8.5-10.1) Magnesium Level 2.0 mg/dL (1.8-2.4) Total Bilirubin 0.5 mg/dL (0.2-1.0) Aspartate Amino Transf (AST/SGOT) 70 U/L (15-37) Alanine Aminotransferase (ALT/SGPT) 98 U/L (14-59) Alkaline Phosphatase 121 U/L (46-116) Creatine Kinase 182 U/L (26-192) 150 U/L (26-192) Creatine Kinase MB (Mass) 2.8 ng/mL (0.0-3.6) 2.0 ng/mL (0.0-3.6) Creatine Kinase MB Relative Index 1.5 % (0-4) 1.3 % (0-4) Troponin I Quantitative < 0.017 ng/mL (0.000-0.055) < 0.017 ng/mL (0.000-0.055) Total Protein 8.0 g/dL (6.4-8.2) Albumin 4.1 g/dL (3.4-5.0) Albumin/Globulin Ratio 1.1 (1.0-1.7) Urine Collection Type Unknown Urine Color Yellow Urine Clarity Clear Urine pH 7.5 Urine Specific [place] 1.015 Urine Protein Negative mg/dL (NEG-TRACE) Urine Glucose (UA) Negative mg/dL (NEG) Urine Ketones (Stick) Negative mg/dL (NEG) Urine Blood Negative (NEG) Urine Nitrite Negative (NEG) Urine Bilirubin Negative (NEG) Urine Urobilinogen Dipstick 0.2 mg/dL (0.2 mg/dL) Urine Leukocyte Esterase Negative (NEG) Urine RBC 0 /HPF (0-2) Urine WBC Occ /HPF (0-4) Urine Squamous Epithelial Cells Few /LPF Urine Bacteria Moderate /HPF (0-FEW) Lactic Acid Level 1.3 mmol/L (0.4-2.0) Procalcitonin < 0.10 ng/mL (0.00-0.10) Test 03/02/19 12:53 03/02/19 14:30 03/02/19 18:50 03/03/19 03:10 Influenza Type A Antigen Negative (NEGATIVE) Influenza Type B Antigen Negative (NEGATIVE) Creatine Kinase 134 U/L (26-192) Creatine Kinase MB (Mass) 1.0 ng/mL (0.0-3.6) Creatine Kinase MB Relative Index 0.7 % (0-4) Troponin I Quantitative < 0.017 ng/mL (0.000-0.055) Erythrocyte Sedimentation Rate 15 (0-25) Lactic Acid Level 0.9 mmol/L (0.4-2.0) Lipase 76 U/L (73-393) White Blood Count 23.5 x10^3/uL (4.0-11.0) Red Blood Count 4.29 x10^6/uL (3.50-5.40) Hemoglobin 12.0 g/dL (12.0-15.5) Hematocrit 36.3 % (36.0-47.0) Mean Corpuscular Volume 85 fL (79-100) Mean Corpuscular Hemoglobin 28 pg (25-35) Mean Corpuscular Hemoglobin Concent 33 g/dL (31-37) Red Cell Distribution Width 12.9 % (11.5-14.5) Platelet Count 243 x10^3/uL (140-400) Sodium Level 139 mmol/L (136-145) Potassium Level 3.7 mmol/L (3.5-5.1) Chloride Level 103 mmol/L (98-107) Carbon Dioxide Level 24 mmol/L (21-32) Anion Gap 12 (6-14) Blood Urea Nitrogen 18 mg/dL (7-20) Creatinine 1.1 mg/dL (0.6-1.0) Estimated GFR (Cockcroft-Gault) 50.0 Glucose Level 151 mg/dL (70-99) Calcium Level 8.8 mg/dL (8.5-10.1) Total Bilirubin 1.7 mg/dL (0.2-1.0) Direct Bilirubin 0.8 mg/dL (0.0-0.2) Aspartate Amino Transf (AST/SGOT) 99 U/L (15-37) Alanine Aminotransferase (ALT/SGPT) 164 U/L (14-59) Alkaline Phosphatase 141 U/L (46-116) Total Protein 7.3 g/dL (6.4-8.2) Albumin 3.1 g/dL (3.4-5.0) Micro Impression: 1. Bilateral pulmonary masses are suspicious for primary lung cancer especially if the patient is a smoker. Atypical pneumonia including TB is possible. 2. Mild mediastinal lymphadenopathy. End Impression CT SCAN OF THE ABDOMEN WITH IV CONTRAST: Findings: Liver: Unremarkable Spleen: Unremarkable Pancreas: Unremarkable Adrenal Glands: Unremarkable Kidneys: Small hypoattenuating lesions in the kidneys bilaterally. There has been prior cholecystectomy. The common bile duct is mildly dilated however this is not unexpected in a postcholecystectomy patient. Evaluation of stomach and bowel is limited without oral contrast. There is no mass or lymphadenopathy. There is no free air. There is no free fluid. CT OF THE PELVIS WITH IV CONTRAST: There is no lymphadenopathy or free fluid. The bladder appears normal. There is no pericolonic inflammation. The appendix is not seen. Impression: Indeterminate lesions in the kidneys bilaterally could be cysts. The patient should have follow-up bilateral renal ultrasound as an outpatient Objective Assessment Sepsis, POA - Fever - better/lactic normal Leukocytosis - Worse ? reactive Transaminitis ? sepsis Acute encephalopathy - better Acute abdominal pain - better Atypical CP - Ct reviewed ? masses/infiltrate Fibromyalgia h/o seizures h/o E. coli in urine Plan Plan of Care Clinically looks some better this am Began Dapto, Zosyn, doxycycline and micafungin evening 03/02 CT scan chest/abd/pelvis w/ IV contrast only - reviewed Await Pulm eval Rec ECHO but await CARD f/u Maintain hydration F/u labs and cults Antiemetic as directed Maintain aspiration precautions D/w nursing VAN CHAVES MD Mar 03, 2019 06:34
[2019-03-03] MEDS: ONDANSETRON PF 4 MG/2 ML VIAL. IVP PRN ×2 (08:43→14:37)
[2019-03-03] MEDS: GABAPENTIN 400 MG CAPSULE. PO SCH ×3 (08:48→21:00)
[2019-03-03] MEDS: traMADol 50 MG TABLET PO SCH ×2 (08:48→20:19)
[2019-03-03 09:29] LABS: BILIRUBIN,URINE NEGATIVE (NEG); CLARITY,URINE CLEAR; COLOR,URINE YELLOW; NITRITE,URINE NEGATIVE (NEG); PH,URINE 6.5; PROTEIN,URINE 30 mg/dL (NEG-TRACE); UROBILINOGEN,URINE 0.2 mg/dL (0.2 mg/dL)
[2019-03-03 09:44] LABS: BACTERIA,URINE 0 /HPF (0-FEW); RBC,URINE 0 /HPF (0-2); SQUAMOUS EPITHELIAL CELL,UR FEW /LPF; WBC,URINE >40 /HPF (0-4)
[2019-03-03] MEDS: COLESTIPOL HCL 1 GM TABLET PO SCH ×3 (10:00→22:00)
--- NOTE | 2019-03-03 11:11 | CONS ---
DATE OF CONSULTATION: 03/03/2019 PULMONARY CONSULTATION ATTENDING PHYSICIAN: Brea Patel MD REASON FOR CONSULTATION: Abnormal CT chest with lung masses. HISTORY OF PRESENT ILLNESS: The patient is a 63-year-old female, who has history of fibromyalgia. She came into the hospital feeling ill. She had a fever of 103.5 and body aches, sore throat, a mild cough and also nausea and vomiting and abdominal pain. The patient was not exposed to anyone sick at home. She underwent imaging study, which was reviewed by me. The patient had a CT chest, which showed a 1.7 cm hazy, mass-like density in the right upper lobe and also a 2.1 cm hazy, mass-like density in the left lower lobe. I also reviewed her CT chest from November and at that time, there were no lung masses seen. There were tiny few millimeters nodules seen bilaterally. There was mild mediastinal lymphadenopathy on recent CAT scan. The CT abdomen did not show any infectious findings. She is still ill appearing and has been nauseous and is noticed to be vomiting today. Minimal history of tobacco use. No history of thromboembolic disease. PAST MEDICAL HISTORY: Significant for history of UTI with E. coli, history of seizures, history of heart murmur, hypertension, GERD, fibromyalgia, history of ovarian cancer and IBS. SURGERIES: Appendectomy, cholecystectomy and total hysterectomy and lysis of adhesions. SOCIAL HISTORY: Former smoker, but smoked minimally. Does not vape. FAMILY HISTORY: Heart disease. ALLERGIES: INCLUDE PHENYTOIN. MEDICATIONS: All reviewed, including broad-spectrum antibiotics. PHYSICAL EXAMINATION: VITAL SIGNS: Reviewed. Blood pressure 130/68, T-max of 103.5, pulse ox 92% on room air. NECK: Supple. LUNGS: With diminished breath sounds at the bases. CARDIOVASCULAR: With a regular rate. ABDOMEN: Soft, obese. EXTREMITIES: With no pitting edema. LABORATORY DATA: Reviewed. White cell count 23.5, hemoglobin 12.0. BUN and creatinine 18 and 1.1. Her bilirubin 1.7. AST and ALT are elevated. IMPRESSION: 1. Abnormal CT chest with mass-like densities in the right upper lobe and left lower lobe. Likely inflammatory in nature as her CT chest from November did not reveal any lung masses. There were 1-2 mm tiny nodules, which have been stable when compared to previous CAT scans. 2. High-grade fever of 103 with nausea, vomiting and cough and I suspect viral syndrome. Infectious Disease has been following. 3. Minimal history of tobacco use. 4. Abnormal liver function tests. 5. Normal lipase. No chemical evidence to suggest pancreatitis. 6. Normal D-dimer of 0.4. RECOMMENDATIONS: 1. Discussed with the patient's and RN and I did discuss with them that at this point, I am not concerned that there is any malignancy. These CT chest findings are likely inflammatory. We will continue with antibiotics and I have recommended to have a followup CT chest in 4-6 weeks. 2. If the mass is persistent, we will consider doing PET scan, the likelihood of that is less. 3. Continue antibiotics. 4. Follow ID recommendation. 5. Follow all cultures. 6. IV hydration for DARA. 7. We will follow along with you. AMADOU SANTOS MD DR: VIRGIL/kenrick JOB#: [id number] / [id number]
[2019-03-03] MEDS ORDERED: PROMETHAZINE 25 MG SUPP.RECT. PR PRN (12:00)
[2019-03-03] MEDS: METOCLOPRAMIDE HCL 10 MG/2 ML VIAL. IVP PRN ×2 (12:12→20:18)
[2019-03-03] MEDS ORDERED: 0.9 % SODIUM CHLORIDE 10 ML DISP.SYRIN. IV PRN (12:15)
--- NOTE | 2019-03-03 12:17 | PDOC1 ---
History and Physical Date of Admission Date of Admission 03/02/19 Identification/Chief Complaint Chief Complaint malaise History of Present Illness History of Present Illness She presented to the ER with malaise and found to be septic and admitted with pulm and ID consults but now having nausea and vomiting and new finding of elevated LFTs. She was at [facility] recently and in [facility] but not aware of any tick bites and no other infectious exposure. Her WBC count went up to 25K. She has not had a fever since her initial 103.5 documented at admission. She does have pets at home including a bird. Past Medical History Cardiovascular: HTN, Other Pulmonary: No pertinent hx CENTRAL NERVOUS SYSTEM: Other GI: GERD, Peptic Ulcer disease Heme/Onc: Cancer (ovarian) Hepatobiliary: No pertinent hx Psych: No pertinent hx Rheumatologic: Fibromyalgia Infectious disease: No pertinent hx Renal/: No pertinent hx Endocrine: Osteopenia Past Surgical History Past Surgical History: Appendectomy, Cholecystectomy, Hysterectomy Family History Family History: Cancer, Diabetes, Heart Disease, Hypertension, Kidney Disease Social History Smoke: Quit ALCOHOL: occassional Drugs: None Current Problem List Problem List Problems Medical Problems: (1) Chest pain Status: Acute Current Medications Current Medications Current Medications Medications (Trade) Dose Ordered Sig/Eder Start Time Stop Time Status Last Admin Dose Admin Acetaminophen (Tylenol) 650 mg PRN Q6HRS PRN 03/02/19 15:00 03/02/19 21:32 650 MG Aspirin (Children'S Aspirin) 324 mg 1X ONCE 03/02/19 10:00 03/02/19 10:01 DC 03/02/19 10:27 324 MG Colestipol HCl (Colestid) 1 gm BID@1000,2200 03/02/19 22:00 Cyclobenzaprine HCl (Flexeril) 10 mg BID PRN 03/02/19 16:45 Daptomycin 480 mg/ Sodium Chloride 50 ml @ 100 mls/hr Q24H 03/02/19 18:00 03/02/19 19:07 100 MLS/HR Dicyclomine HCl (Bentyl) 10 mg BID PRN 03/02/19 16:45 Doxycycline Hyclate 100 mg/ Dextrose 100 ml @ 50 mls/hr Q12HR 03/02/19 21:00 03/03/19 08:43 50 MLS/HR Gabapentin (Neurontin) 800 mg BID 03/02/19 21:00 Hydroxyzine HCl (Atarax) 25 mg DAILY PRN 03/02/19 16:45 Info (CONTRAST GIVEN -- Rx MONITORING) 1 each PRN DAILY PRN 03/02/19 18:15 03/04/19 18:14 Iohexol (Omnipaque 300 Mg/ml) 75 ml 1X ONCE 03/02/19 18:00 03/02/19 18:02 DC 03/02/19 18:21 75 ML Lisinopril (Prinivil) 10 mg HS 03/02/19 21:00 Metoclopramide HCl (Reglan Vial) 10 mg PRN Q6HRS PRN 03/03/19 12:00 Micafungin Sodium 100 mg/Dextrose 100 ml @ 100 mls/hr Q24H 03/02/19 18:00 03/02/19 21:32 100 MLS/HR Morphine Sulfate (Morphine Sulfate) 2 mg PRN Q2HR PRN 03/02/19 12:15 03/03/19 12:14 03/03/19 01:19 2 MG Ondansetron HCl (Zofran) 8 mg PRN Q6HRS PRN 03/03/19 08:45 03/03/19 08:43 8 MG Piperacillin Sod/ Tazobactam Sod 3.375 gm/Sodium Chloride 50 ml @ 100 mls/hr Q6HRS 03/02/19 18:00 03/03/19 05:28 100 MLS/HR Prochlorperazine Edisylate (Compazine) 10 mg PRN Q6HRS PRN 03/03/19 12:00 Promethazine HCl (Phenergan Supp) 25 mg PRN Q6HRS PRN 03/03/19 12:00 Sodium Chloride 1,000 ml @ 100 mls/hr Q10H 03/02/19 12:01 03/03/19 12:00 03/03/19 00:27 100 MLS/HR Sumatriptan Succinate (Imitrex) 100 mg BID PRN 03/02/19 16:45 Tramadol HCl (Ultram) 50 mg BID 03/02/19 21:00 Vancomycin HCl (Vanco Per Pharmacy) 1 each PRN DAILY PRN 03/02/19 17:45 Cancel Vancomycin HCl 2 gm/Sodium Chloride 500 ml @ 250 mls/hr 1X ONCE 03/02/19 19:00 03/02/19 20:59 Cancel Zolpidem Tartrate (Ambien) 5 mg QHS 03/02/19 21:00 Allergies Allergies Allergies Coded Allergies Type Severity Reaction Last Updated Verified onion Allergy Intermediate Unknown 06/13/18 Yes phenytoin Allergy Intermediate rash 06/30/15 Yes ROS Review of System CONSTITUTIONAL: + fever or chills EYES: No recent changes SKIN: No rash or itching CARDIOVASCULAR: + chest pain. no syncope, palpitations, or edema RESPIRATORY: No SOB but + cough GASTROINTESTINAL: + nausea, vomiting or abdominal pain since admission NEUROLOGICAL: No headaches or weakness, positive for dizziness ENDOCRINE: No cold or heat intolerance GENITOURINARY: No urgency or frequency of urination MUSCULOSKELETAL: No back pain or joint pain LYMPHATICS: No enlarged lymph nodes PSYCHIATRIC: No anxiety or depression Physical Exam Physical Exam GEN.: uncomfortable, vomiting. Alert and oriented. HEENT: Head is normocephalic, atraumatic NECK: Supple. LUNGS: Clear to auscultation. HEART: RRR, S1, S2 present. Peripheral pulses intact ABDOMEN: Soft, RUQ tender. Positive bowel sounds. EXTREMITIES: Without any cyanosis. NEUROLOGIC: Normal speech, normal tone PSYCHIATRIC: ill affect, normal mood. SKIN: No ulcerations or rash Vitals Vitals Vital Signs Date Time Temp Pulse Resp B/P (MAP) Pulse Ox O2 Delivery O2 Flow Rate FiO2 03/03/19 10:57 97.8 73 32 121/53 (75) 98 Room Air 97.8 Labs Labs Laboratory Tests Test 03/02/19 09:58 03/02/19 10:00 03/02/19 10:20 03/02/19 11:45 White Blood Count 11.3 x10^3/uL (4.0-11.0) Red Blood Count 4.62 x10^6/uL (3.50-5.40) Hemoglobin 13.1 g/dL (12.0-15.5) Hematocrit 39.0 % (36.0-47.0) Mean Corpuscular Volume 85 fL (79-100) Mean Corpuscular Hemoglobin 28 pg (25-35) Mean Corpuscular Hemoglobin Concent 34 g/dL (31-37) Red Cell Distribution Width 13.0 % (11.5-14.5) Platelet Count 267 x10^3/uL (140-400) Neutrophils (%) (Auto) 83 % (31-73) Lymphocytes (%) (Auto) 7 % (24-48) Monocytes (%) (Auto) 8 % (0-9) Eosinophils (%) (Auto) 2 % (0-3) Basophils (%) (Auto) 1 % (0-3) Neutrophils # (Auto) 9.4 x10^3/uL (1.8-7.7) Lymphocytes # (Auto) 0.8 x10^3/uL (1.0-4.8) Monocytes # (Auto) 0.9 x10^3/uL (0.0-1.1) Eosinophils # (Auto) 0.2 x10^3/uL (0.0-0.7) Basophils # (Auto) 0.1 x10^3/uL (0.0-0.2) Prothrombin Time 12.2 SEC (11.7-14.0) Prothromb Time International Ratio 0.9 (0.8-1.1) Activated Partial Thromboplast Time 29 SEC (24-38) D-Dimer (Stefanie) 0.40 ug/mlFEU (0.00-0.50) Sodium Level 140 mmol/L (136-145) Potassium Level 4.3 mmol/L (3.5-5.1) Chloride Level 103 mmol/L (98-107) Carbon Dioxide Level 28 mmol/L (21-32) Anion Gap 9 (6-14) Blood Urea Nitrogen 20 mg/dL (7-20) Creatinine 0.9 mg/dL (0.6-1.0) Estimated GFR (Cockcroft-Gault) 63.0 BUN/Creatinine Ratio 22 (6-20) Glucose Level 98 mg/dL (70-99) Calcium Level 9.7 mg/dL (8.5-10.1) Magnesium Level 2.0 mg/dL (1.8-2.4) Total Bilirubin 0.5 mg/dL (0.2-1.0) Aspartate Amino Transf (AST/SGOT) 70 U/L (15-37) Alanine Aminotransferase (ALT/SGPT) 98 U/L (14-59) Alkaline Phosphatase 121 U/L (46-116) Creatine Kinase 182 U/L (26-192) 150 U/L (26-192) Creatine Kinase MB (Mass) 2.8 ng/mL (0.0-3.6) 2.0 ng/mL (0.0-3.6) Creatine Kinase MB Relative Index 1.5 % (0-4) 1.3 % (0-4) Troponin I Quantitative < 0.017 ng/mL (0.000-0.055) < 0.017 ng/mL (0.000-0.055) Total Protein 8.0 g/dL (6.4-8.2) Albumin 4.1 g/dL (3.4-5.0) Albumin/Globulin Ratio 1.1 (1.0-1.7) Urine Collection Type Unknown Urine Color Yellow Urine Clarity Clear Urine pH 7.5 Urine Specific [place] 1.015 Urine Protein Negative mg/dL (NEG-TRACE) Urine Glucose (UA) Negative mg/dL (NEG) Urine Ketones (Stick) Negative mg/dL (NEG) Urine Blood Negative (NEG) Urine Nitrite Negative (NEG) Urine Bilirubin Negative (NEG) Urine Urobilinogen Dipstick 0.2 mg/dL (0.2 mg/dL) Urine Leukocyte Esterase Negative (NEG) Urine RBC 0 /HPF (0-2) Urine WBC Occ /HPF (0-4) Urine Squamous Epithelial Cells Few /LPF Urine Bacteria Moderate /HPF (0-FEW) Lactic Acid Level 1.3 mmol/L (0.4-2.0) Procalcitonin < 0.10 ng/mL (0.00-0.10) Test 03/02/19 12:53 03/02/19 14:30 03/02/19 18:50 03/03/19 03:10 Influenza Type A Antigen Negative (NEGATIVE) Influenza Type B Antigen Negative (NEGATIVE) Creatine Kinase 134 U/L (26-192) Creatine Kinase MB (Mass) 1.0 ng/mL (0.0-3.6) Creatine Kinase MB Relative Index 0.7 % (0-4) Troponin I Quantitative < 0.017 ng/mL (0.000-0.055) Erythrocyte Sedimentation Rate 15 (0-25) Lactic Acid Level 0.9 mmol/L (0.4-2.0) Lipase 76 U/L (73-393) White Blood Count 23.5 x10^3/uL (4.0-11.0) Red Blood Count 4.29 x10^6/uL (3.50-5.40) Hemoglobin 12.0 g/dL (12.0-15.5) Hematocrit 36.3 % (36.0-47.0) Mean Corpuscular Volume 85 fL (79-100) Mean Corpuscular Hemoglobin 28 pg (25-35) Mean Corpuscular Hemoglobin Concent 33 g/dL (31-37) Red Cell Distribution Width 12.9 % (11.5-14.5) Platelet Count 243 x10^3/uL (140-400) Sodium Level 139 mmol/L (136-145) Potassium Level 3.7 mmol/L (3.5-5.1) Chloride Level 103 mmol/L (98-107) Carbon Dioxide Level 24 mmol/L (21-32) Anion Gap 12 (6-14) Blood Urea Nitrogen 18 mg/dL (7-20) Creatinine 1.1 mg/dL (0.6-1.0) Estimated GFR (Cockcroft-Gault) 50.0 Glucose Level 151 mg/dL (70-99) Calcium Level 8.8 mg/dL (8.5-10.1) Total Bilirubin 1.7 mg/dL (0.2-1.0) Direct Bilirubin 0.8 mg/dL (0.0-0.2) Aspartate Amino Transf (AST/SGOT) 99 U/L (15-37) Alanine Aminotransferase (ALT/SGPT) 164 U/L (14-59) Alkaline Phosphatase 141 U/L (46-116) Total Protein 7.3 g/dL (6.4-8.2) Albumin 3.1 g/dL (3.4-5.0) Test 03/03/19 09:15 Urine Collection Type Unknown Urine Color Yellow Urine Clarity Clear Urine pH 6.5 Urine Specific [place] >=1.030 Urine Protein 30 mg/dL (NEG-TRACE) Urine Glucose (UA) Negative mg/dL (NEG) Urine Ketones (Stick) Negative mg/dL (NEG) Urine Blood Negative (NEG) Urine Nitrite Negative (NEG) Urine Bilirubin Negative (NEG) Urine Urobilinogen Dipstick 0.2 mg/dL (0.2 mg/dL) Urine Leukocyte Esterase Large (NEG) Urine RBC 0 /HPF (0-2) Urine WBC >40 /HPF (0-4) Urine Squamous Epithelial Cells Few /LPF Urine Bacteria 0 /HPF (0-FEW) Laboratory Tests Test 03/02/19 12:53 03/02/19 14:30 03/02/19 18:50 03/03/19 03:10 Influenza Type A Antigen Negative (NEGATIVE) Influenza Type B Antigen Negative (NEGATIVE) Creatine Kinase 134 U/L (26-192) Creatine Kinase MB (Mass) 1.0 ng/mL (0.0-3.6) Creatine Kinase MB Relative Index 0.7 % (0-4) Troponin I Quantitative < 0.017 ng/mL (0.000-0.055) Erythrocyte Sedimentation Rate 15 (0-25) Lactic Acid Level 0.9 mmol/L (0.4-2.0) Lipase 76 U/L (73-393) White Blood Count 23.5 x10^3/uL (4.0-11.0) Red Blood Count 4.29 x10^6/uL (3.50-5.40) Hemoglobin 12.0 g/dL (12.0-15.5) Hematocrit 36.3 % (36.0-47.0) Mean Corpuscular Volume 85 fL (79-100) Mean Corpuscular Hemoglobin 28 pg (25-35) Mean Corpuscular Hemoglobin Concent 33 g/dL (31-37) Red Cell Distribution Width 12.9 % (11.5-14.5) Platelet Count 243 x10^3/uL (140-400) Sodium Level 139 mmol/L (136-145) Potassium Level 3.7 mmol/L (3.5-5.1) Chloride Level 103 mmol/L (98-107) Carbon Dioxide Level 24 mmol/L (21-32) Anion Gap 12 (6-14) Blood Urea Nitrogen 18 mg/dL (7-20) Creatinine 1.1 mg/dL (0.6-1.0) Estimated GFR (Cockcroft-Gault) 50.0 Glucose Level 151 mg/dL (70-99) Calcium Level 8.8 mg/dL (8.5-10.1) Total Bilirubin 1.7 mg/dL (0.2-1.0) Direct Bilirubin 0.8 mg/dL (0.0-0.2) Aspartate Amino Transf (AST/SGOT) 99 U/L (15-37) Alanine Aminotransferase (ALT/SGPT) 164 U/L (14-59) Alkaline Phosphatase 141 U/L (46-116) Total Protein 7.3 g/dL (6.4-8.2) Albumin 3.1 g/dL (3.4-5.0) Test 03/03/19 09:15 Urine Collection Type Unknown Urine Color Yellow Urine Clarity Clear Urine pH 6.5 Urine Specific [place] >=1.030 Urine Protein 30 mg/dL (NEG-TRACE) Urine Glucose (UA) Negative mg/dL (NEG) Urine Ketones (Stick) Negative mg/dL (NEG) Urine Blood Negative (NEG) Urine Nitrite Negative (NEG) Urine Bilirubin Negative (NEG) Urine Urobilinogen Dipstick 0.2 mg/dL (0.2 mg/dL) Urine Leukocyte Esterase Large (NEG) Urine RBC 0 /HPF (0-2) Urine WBC >40 /HPF (0-4) Urine Squamous Epithelial Cells Few /LPF Urine Bacteria 0 /HPF (0-FEW) Images Images PROCEDURE: CT CHEST ABD PELVIS W/CONTRAST CT chest abdomen and pelvis with contrast: History: Sepsis and abdominal pain and nausea and vomiting Axial helical images of the chest abdomen and pelvis were obtained after the administration of 75 cc IV Omni 300 contrast. Oral contrast was not utilized. Comparison: none CT OF THE CHEST WITH IV CONTRAST: There is a right upper lobe mass that measures 1.7 cm in diameter near the allan. There is a 1.2 cm x 2.1 cm left lower lobe mass. Both these masses have fuzzy borders. There is vague patchy opacities in the lung bases which are likely discoid atelectasis. There is a single mildly enlarged mediastinal lymph node just anterior to the origin of the right main bronchus. Impression: 1. Bilateral pulmonary masses are suspicious for primary lung cancer especially if the patient is a smoker. Atypical pneumonia including TB is possible. 2. Mild mediastinal lymphadenopathy. End Impression CT SCAN OF THE ABDOMEN WITH IV CONTRAST: Findings: Liver: Unremarkable Spleen: Unremarkable Pancreas: Unremarkable Adrenal Glands: Unremarkable Kidneys: Small hypoattenuating lesions in the kidneys bilaterally. There has been prior cholecystectomy. The common bile duct is mildly dilated however this is not unexpected in a postcholecystectomy patient. Evaluation of stomach and bowel is limited without oral contrast. There is no mass or lymphadenopathy. There is no free air. There is no free fluid. CT OF THE PELVIS WITH IV CONTRAST: There is no lymphadenopathy or free fluid. The bladder appears normal. There is no pericolonic inflammation. The appendix is not seen. Impression: Indeterminate lesions in the kidneys bilaterally could be cysts. The patient should have follow-up bilateral renal ultrasound as an outpatient. VTE Prophylaxis Ordered VTE Prophylaxis Devices: No VTE Pharmacological Prophylaxi: No Assessment/Plan Assessment/Plan sepsis - fever, leukocytosis - ID consulted on broad coverage, cultures pending nausea vomiting RUQ abdominal pain with abnormal LFTs, hx of cholecystectomy - GI consult hx of ovarian cancer lung nodules suspicious per radiology for lung cancer or TB - pulm consult tobacco use - quit a yr ago after 30 pack yr hx hx CAD fibromyalgia hx of seizure disorder OA Vicente GRESHAM MD Mar 03, 2019 12:17
[2019-03-03] MEDS: POTASSIUM CL 20MEQ D5-0.45NACL 1,000 ML IV SCH (13:04)
--- NOTE | 2019-03-03 14:29 | PDOC2 ---
GI CONSULT Reason For Consult: N, V, abdominal pain, abnormal LFT's HPI: HPI: 63 y/o female admitted yesterday after presenting with dizziness and chest pain. Shortly after, febrile to 103+. Imaging with chest abnormalities felt to be inflammatory/infectious. Last evening, onset of epigastric/RUQ pain with nausea and vomiting. Actively retching during my visit. Also noted mild increase in LFT's from mildly elevated levels at admission. Pain described as sharp/squeezing. Denies any blood or coffee-ground emesis. Typically free of heartburn or dysphagia. Denies ulcer disease. Did have juvenal; unclear if stones present. No liver or pancreatic history. No tobacco or alcohol use. No recent NSAID use, though in past took diclofenac. Variable stools at baseline; has been told "IBS". Colonoscopy <5 years ago mayb e with polyps. Wt/appetite OK. Occasional blood on TP only. Believes she has hemorrhoids. PMH: PMH: OA, FMS, OP, CAD, Migraines, "murmur", HLP, allergic rhinitis. S/P appy, juvenal, hyster, laparoscopy. Social History: Smoke: No ALCOHOL: none Drugs: None ROS: GEN: Denies fevers, chills, sweats HEENT: Denies blurred vision, sore throat CV: Some chest pain RESP: Denies shortness of air, cough GI: Per HPI : Denies hematuria, dysuria ENDO: Denies weight changes NEURO: Denies confusion, dizziness MSK: Denies weakness, joint pain/swelling SKIN: Denies jaundice, pruritus Vitals: Vitals: Vital Signs Date Time Temp Pulse Resp B/P (MAP) Pulse Ox O2 Delivery O2 Flow Rate FiO2 03/03/19 10:57 97.8 73 32 121/53 (75) 98 Room Air 97.8 Labs: Labs: Laboratory Tests Test 03/02/19 14:30 03/02/19 18:50 03/03/19 03:10 03/03/19 09:15 Creatine Kinase 134 U/L (26-192) Creatine Kinase MB (Mass) 1.0 ng/mL (0.0-3.6) Creatine Kinase MB Relative Index 0.7 % (0-4) Troponin I Quantitative < 0.017 ng/mL (0.000-0.055) Erythrocyte Sedimentation Rate 15 (0-25) Lactic Acid Level 0.9 mmol/L (0.4-2.0) Lipase 76 U/L (73-393) White Blood Count 23.5 x10^3/uL (4.0-11.0) Red Blood Count 4.29 x10^6/uL (3.50-5.40) Hemoglobin 12.0 g/dL (12.0-15.5) Hematocrit 36.3 % (36.0-47.0) Mean Corpuscular Volume 85 fL (79-100) Mean Corpuscular Hemoglobin 28 pg (25-35) Mean Corpuscular Hemoglobin Concent 33 g/dL (31-37) Red Cell Distribution Width 12.9 % (11.5-14.5) Platelet Count 243 x10^3/uL (140-400) Sodium Level 139 mmol/L (136-145) Potassium Level 3.7 mmol/L (3.5-5.1) Chloride Level 103 mmol/L (98-107) Carbon Dioxide Level 24 mmol/L (21-32) Anion Gap 12 (6-14) Blood Urea Nitrogen 18 mg/dL (7-20) Creatinine 1.1 mg/dL (0.6-1.0) Estimated GFR (Cockcroft-Gault) 50.0 Glucose Level 151 mg/dL (70-99) Calcium Level 8.8 mg/dL (8.5-10.1) Total Bilirubin 1.7 mg/dL (0.2-1.0) Direct Bilirubin 0.8 mg/dL (0.0-0.2) Aspartate Amino Transf (AST/SGOT) 99 U/L (15-37) Alanine Aminotransferase (ALT/SGPT) 164 U/L (14-59) Alkaline Phosphatase 141 U/L (46-116) Total Protein 7.3 g/dL (6.4-8.2) Albumin 3.1 g/dL (3.4-5.0) Urine Collection Type Unknown Urine Color Yellow Urine Clarity Clear Urine pH 6.5 Urine Specific [place] >=1.030 Urine Protein 30 mg/dL (NEG-TRACE) Urine Glucose (UA) Negative mg/dL (NEG) Urine Ketones (Stick) Negative mg/dL (NEG) Urine Blood Negative (NEG) Urine Nitrite Negative (NEG) Urine Bilirubin Negative (NEG) Urine Urobilinogen Dipstick 0.2 mg/dL (0.2 mg/dL) Urine Leukocyte Esterase Large (NEG) Urine RBC 0 /HPF (0-2) Urine WBC >40 /HPF (0-4) Urine Squamous Epithelial Cells Few /LPF Urine Bacteria 0 /HPF (0-FEW) Modest LFT's. Abnormal UA. Allergies: Coded Allergies: onion (Verified Allergy, Intermediate, Unknown, 06/13/18) phenytoin (Verified Allergy, Intermediate, rash, 06/30/15) Medications: Current Medications Medications (Trade) Dose Ordered Sig/Eder Route PRN Reason Start Time Stop Time Status Last Admin Dose Admin Acetaminophen (Tylenol) 650 mg PRN Q6HRS PRN PO FEVER 03/02/19 15:00 03/02/19 21:32 Doxycycline Hyclate 100 mg/ Dextrose 100 ml @ 50 mls/hr Q12HR IV 03/02/19 21:00 03/03/19 08:43 Piperacillin Sod/ Tazobactam Sod 3.375 gm/Sodium Chloride 50 ml @ 100 mls/hr Q6HRS IV 03/02/19 18:00 03/03/19 12:06 Micafungin Sodium 100 mg/Dextrose 100 ml @ 100 mls/hr Q24H IV 03/02/19 18:00 03/02/19 21:32 Daptomycin 480 mg/ Sodium Chloride 50 ml @ 100 mls/hr Q24H IV 03/02/19 18:00 03/02/19 19:07 Iohexol (Omnipaque 300 Mg/ml) 75 ml 1X ONCE IV 03/02/19 18:00 03/02/19 18:02 DC 03/02/19 18:21 Ondansetron HCl (Zofran) 8 mg PRN Q6HRS PRN IVP NAUSEA/VOMITING 03/03/19 08:45 03/03/19 08:43 Metoclopramide HCl (Reglan Vial) 10 mg PRN Q6HRS PRN IVP NAUSEA/VOMITING 03/03/19 12:00 03/03/19 12:12 Potassium Chloride/Dextrose/ Sod Cl 1,000 ml @ 100 mls/hr Q10H IV 03/03/19 12:02 03/03/19 13:04 Imaging: Imaging: On CT C/A/P: There is a right upper lobe mass that measures 1.7 cm in diameter near the allan. There is a 1.2 cm x 2.1 cm left lower lobe mass. Both these masses have fuzzy borders. There is vague patchy opacities in the lung bases which are likely discoid atelectasis. There is a single mildly enlarged mediastinal lymph node just anterior to the origin of the right main bronchus. Impression: 1. Bilateral pulmonary masses are suspicious for primary lung cancer especially if the patient is a smoker. Atypical pneumonia including TB is possible. 2. Mild mediastinal lymphadenopathy. End Impression CT SCAN OF THE ABDOMEN WITH IV CONTRAST: Findings: Liver: Unremarkable Spleen: Unremarkable Pancreas: Unremarkable Adrenal Glands: Unremarkable Kidneys: Small hypoattenuating lesions in the kidneys bilaterally. There has been prior cholecystectomy. The common bile duct is mildly dilated however this is not unexpected in a postcholecystectomy patient. Evaluation of stomach and bowel is limited without oral contrast. There is no mass or lymphadenopathy. There is no free air. There is no free fluid. CT OF THE PELVIS WITH IV CONTRAST: There is no lymphadenopathy or free fluid. The bladder appears normal. There is no pericolonic inflammation. The appendix is not seen. Impression: Indeterminate lesions in the kidneys bilaterally could be cysts. The patient should have follow-up bilateral renal ultrasound as an outpatient. PE: GEN: NAD HEENT: Atraumatic, PERRLA LUNGS: CTAB HEART: RRR, no murmurs ABD: NABS, S/ND/tender epigastrium and LUQ, no masses. Some rib tenderness on right as well. EXTREMITY: No edema SKIN: No rashes, no jaundice NEURO/PSYCH: A & O �3 A/P: A/P: IMP: N, V, Abdominal pain with abnormal LFT's; recent onset and apparently not present at admission save mildly abnormal LFT's. Unclear h/o stones at juvenal; if did, consider retained stone. SOD possible, but hard to firmly diagnose. Peptic issue? IBS Possible h/o colon polyps. S/p juvenal. REC: Empiric PPI. Sonogram Follow LFT's. --other peniding. SULEMAN SALGADO MD Mar 03, 2019 14:29
--- NOTE | 2019-03-03 16:20 | RAD ---
Exam: Ultrasound abdomen complete Indication: Right upper quadrant pain Technique: Real-time grayscale and color Doppler images of the abdomen were obtained by the department slot machine floor person. Comparisons: None FINDINGS: Patient actively vomiting during exam which limits visualization. Pancreas and aorta are not well visualized . IVC appears unremarkable. Liver demonstrates increased echogenicity. Normal hepatopedal flow noted within the portal vein. Gallbladder is absent. Common bile duct measures 5 mm. Right kidney measures 12.1 cm in length. Simple cyst measuring 1.6 cm noted at the upper pole. No hydronephrosis. Left kidney measures 13.5 cm. Cyst measuring 1.8 cm noted at the lower pole. No hydronephrosis. Spleen measures 12.5 cm in length. IMPRESSION: 1. Hepatic steatosis. 2. Gallbladder is absent. No biliary ductal dilatation identified. 3. No hydronephrosis. 4. Limitations as above. Electronically signed by: Eileen Perez MD (03/03/2019 4:17 PM) [id number]
[2019-03-03] MEDS: PANTOPRAZOLE IV PUSH 40 MG VIAL. IVP SCH (16:28)
[2019-03-03] MEDS: MICAFUNGIN 100 MG in IV DEXTROSE 5% 100ML 100 ML IV SCH (18:10)
[2019-03-03] MEDS: DAPTOmycin (GENERIC) IVPB 480 MG in IV NORMAL SALINE 50ML 50 ML IV SCH (20:17)
[2019-03-03] MEDS: ZOLPIDEM 5 MG TABLET. PO SCH (20:18)
[2019-03-03] MEDS: LACTOBACILLUS RHAMNOSUS GG 1 CAPSULE. PO SCH ×2 (20:19→21:00)
[2019-03-03] MEDS: LISINOPRIL 10 MG TABLET PO SCH (20:19)
[2019-03-03] MEDS: PROCHLORPERAZINE 10 MG/2 ML VIAL. IM PRN (20:20)
[2019-03-04] MEDS: PIPERACILLIN/TAZOBACTAM 3.375 GM in IV NORMAL SALINE 50ML 50 ML IV SCH ×4 (01:18→17:55)
[2019-03-04 03:07] VITALS: BP 134/60
[2019-03-04] MEDS: POTASSIUM CL 20MEQ D5-0.45NACL 1,000 ML IV SCH ×3 (04:15→22:09)
[2019-03-04] MEDS: ONDANSETRON PF 4 MG/2 ML VIAL. IVP PRN ×2 (04:15→12:09)
[2019-03-04 05:01] LABS: BASO # 0.1 x10^3/uL (0.0-0.2); BASO % 0 % (0-3); EOS % 0 % (0-3); HEMATOCRIT 33.9 % (36.0-47.0); HEMOGLOBIN 11.3 g/dL (12.0-15.5); LYMPH # 1.4 x10^3/uL (1.0-4.8); LYMPH % 9 % (24-48); MEAN CORPUSCULAR HEMOGLOBIN 28 pg (25-35); MEAN CORPUSCULAR HGB CONC 33 g/dL (31-37); MEAN CORPUSCULAR VOLUME 85 fL (79-100); MONO % 6 % (0-9); NEUT # 13.5 x10^3/uL (1.8-7.7); NEUT % 85 % (31-73); PLATELET COUNT 232 x10^3/uL (140-400); RED BLOOD COUNT 4.01 x10^6/uL (3.50-5.40); WHITE BLOOD COUNT 15.9 x10^3/uL (4.0-11.0)
[2019-03-04 05:31] LABS: AMYLASE 23 U/L (25-115); LIPASE 46 U/L (73-393)
[2019-03-04 05:48] LABS: ALBUMIN/GLOBULIN RATIO 0.7 (1.0-1.7); CALCIUM 8.7 mg/dL (8.5-10.1); CREATININE 0.8 mg/dL (0.6-1.0); GFR 72.2; POTASSIUM 3.4 mmol/L (3.5-5.1); TOTAL BILIRUBIN 0.7 mg/dL (0.2-1.0); TOTAL PROTEIN 7.1 g/dL (6.4-8.2)
[2019-03-04] MEDS: METOCLOPRAMIDE HCL 10 MG/2 ML VIAL. IVP PRN (06:05)
[2019-03-04 07:00] VITALS: BP 132/67
[2019-03-04 07:32] LABS: % BANDS 3 % (0-9); % EOS 2 % (0-5); % LYMPHS 8 % (24-48); % MONOS 4 % (0-10); % SEGS 83 % (35-66); PLT ESTIMATE ADEQUATE (ADEQUATE)
[2019-03-04] MEDS: PANTOPRAZOLE IV PUSH 40 MG VIAL. IVP SCH ×2 (08:24→17:55)
[2019-03-04] MEDS: PROCHLORPERAZINE 10 MG/2 ML VIAL. IM PRN (08:24)
[2019-03-04] MEDS: LACTOBACILLUS RHAMNOSUS GG 1 CAPSULE. PO SCH ×2 (08:25→22:05)
[2019-03-04] MEDS: traMADol 50 MG TABLET PO SCH ×2 (08:26→22:05)
[2019-03-04] MEDS: GABAPENTIN 400 MG CAPSULE. PO SCH ×2 (08:26→22:05)
[2019-03-04] MEDS: DOXYCYCLINE HYCLATE 100 MG in IV DEXTROSE 5% 100ML 100 ML IV SCH ×2 (08:26→23:22)
--- NOTE | 2019-03-04 09:00 | PDOC ---
PULMONARY PROGRESS NOTES Subjective pt. still experience diffuse abdominal pain accompanied by nausea and vomiting, on room air, denies SOB or increase in cough Vitals Vital Signs Date Time Temp Pulse Resp B/P (MAP) Pulse Ox O2 Delivery O2 Flow Rate FiO2 03/04/19 08:26 95 Room Air 03/04/19 07:00 98.3 73 16 132/67 (88) 98.3 ROS: No Chest Pain, No Increase Cough General: Alert, Oriented X4 Lungs: Other (dim in bases ) Cardiovascular: S1, S2 Abdomen: Soft Neuro Exam: Alert, Oriented, Normal Speech Extremities: No Edema Skin: Warm Labs Laboratory Tests Test 03/02/19 09:58 03/02/19 10:00 03/02/19 10:20 03/02/19 11:45 White Blood Count 11.3 x10^3/uL (4.0-11.0) Red Blood Count 4.62 x10^6/uL (3.50-5.40) Hemoglobin 13.1 g/dL (12.0-15.5) Hematocrit 39.0 % (36.0-47.0) Mean Corpuscular Volume 85 fL (79-100) Mean Corpuscular Hemoglobin 28 pg (25-35) Mean Corpuscular Hemoglobin Concent 34 g/dL (31-37) Red Cell Distribution Width 13.0 % (11.5-14.5) Platelet Count 267 x10^3/uL (140-400) Neutrophils (%) (Auto) 83 % (31-73) Lymphocytes (%) (Auto) 7 % (24-48) Monocytes (%) (Auto) 8 % (0-9) Eosinophils (%) (Auto) 2 % (0-3) Basophils (%) (Auto) 1 % (0-3) Neutrophils # (Auto) 9.4 x10^3/uL (1.8-7.7) Lymphocytes # (Auto) 0.8 x10^3/uL (1.0-4.8) Monocytes # (Auto) 0.9 x10^3/uL (0.0-1.1) Eosinophils # (Auto) 0.2 x10^3/uL (0.0-0.7) Basophils # (Auto) 0.1 x10^3/uL (0.0-0.2) Prothrombin Time 12.2 SEC (11.7-14.0) Prothromb Time International Ratio 0.9 (0.8-1.1) Activated Partial Thromboplast Time 29 SEC (24-38) D-Dimer (Stefanie) 0.40 ug/mlFEU (0.00-0.50) Sodium Level 140 mmol/L (136-145) Potassium Level 4.3 mmol/L (3.5-5.1) Chloride Level 103 mmol/L (98-107) Carbon Dioxide Level 28 mmol/L (21-32) Anion Gap 9 (6-14) Blood Urea Nitrogen 20 mg/dL (7-20) Creatinine 0.9 mg/dL (0.6-1.0) Estimated GFR (Cockcroft-Gault) 63.0 BUN/Creatinine Ratio 22 (6-20) Glucose Level 98 mg/dL (70-99) Calcium Level 9.7 mg/dL (8.5-10.1) Magnesium Level 2.0 mg/dL (1.8-2.4) Total Bilirubin 0.5 mg/dL (0.2-1.0) Aspartate Amino Transf (AST/SGOT) 70 U/L (15-37) Alanine Aminotransferase (ALT/SGPT) 98 U/L (14-59) Alkaline Phosphatase 121 U/L (46-116) Creatine Kinase 182 U/L (26-192) 150 U/L (26-192) Creatine Kinase MB (Mass) 2.8 ng/mL (0.0-3.6) 2.0 ng/mL (0.0-3.6) Creatine Kinase MB Relative Index 1.5 % (0-4) 1.3 % (0-4) Troponin I Quantitative < 0.017 ng/mL (0.000-0.055) < 0.017 ng/mL (0.000-0.055) Total Protein 8.0 g/dL (6.4-8.2) Albumin 4.1 g/dL (3.4-5.0) Albumin/Globulin Ratio 1.1 (1.0-1.7) Urine Collection Type Unknown Urine Color Yellow Urine Clarity Clear Urine pH 7.5 Urine Specific [place] 1.015 Urine Protein Negative mg/dL (NEG-TRACE) Urine Glucose (UA) Negative mg/dL (NEG) Urine Ketones (Stick) Negative mg/dL (NEG) Urine Blood Negative (NEG) Urine Nitrite Negative (NEG) Urine Bilirubin Negative (NEG) Urine Urobilinogen Dipstick 0.2 mg/dL (0.2 mg/dL) Urine Leukocyte Esterase Negative (NEG) Urine RBC 0 /HPF (0-2) Urine WBC Occ /HPF (0-4) Urine Squamous Epithelial Cells Few /LPF Urine Bacteria Moderate /HPF (0-FEW) Lactic Acid Level 1.3 mmol/L (0.4-2.0) Procalcitonin < 0.10 ng/mL (0.00-0.10) Test 03/02/19 12:53 03/02/19 14:30 03/02/19 18:50 03/03/19 03:10 Influenza Type A Antigen Negative (NEGATIVE) Influenza Type B Antigen Negative (NEGATIVE) Creatine Kinase 134 U/L (26-192) Creatine Kinase MB (Mass) 1.0 ng/mL (0.0-3.6) Creatine Kinase MB Relative Index 0.7 % (0-4) Troponin I Quantitative < 0.017 ng/mL (0.000-0.055) Erythrocyte Sedimentation Rate 15 (0-25) Lactic Acid Level 0.9 mmol/L (0.4-2.0) Lipase 76 U/L (73-393) White Blood Count 23.5 x10^3/uL (4.0-11.0) Red Blood Count 4.29 x10^6/uL (3.50-5.40) Hemoglobin 12.0 g/dL (12.0-15.5) Hematocrit 36.3 % (36.0-47.0) Mean Corpuscular Volume 85 fL (79-100) Mean Corpuscular Hemoglobin 28 pg (25-35) Mean Corpuscular Hemoglobin Concent 33 g/dL (31-37) Red Cell Distribution Width 12.9 % (11.5-14.5) Platelet Count 243 x10^3/uL (140-400) Sodium Level 139 mmol/L (136-145) Potassium Level 3.7 mmol/L (3.5-5.1) Chloride Level 103 mmol/L (98-107) Carbon Dioxide Level 24 mmol/L (21-32) Anion Gap 12 (6-14) Blood Urea Nitrogen 18 mg/dL (7-20) Creatinine 1.1 mg/dL (0.6-1.0) Estimated GFR (Cockcroft-Gault) 50.0 Glucose Level 151 mg/dL (70-99) Calcium Level 8.8 mg/dL (8.5-10.1) Total Bilirubin 1.7 mg/dL (0.2-1.0) Direct Bilirubin 0.8 mg/dL (0.0-0.2) Aspartate Amino Transf (AST/SGOT) 99 U/L (15-37) Alanine Aminotransferase (ALT/SGPT) 164 U/L (14-59) Alkaline Phosphatase 141 U/L (46-116) Total Protein 7.3 g/dL (6.4-8.2) Albumin 3.1 g/dL (3.4-5.0) Test 03/03/19 09:15 03/04/19 04:04 Urine Collection Type Unknown Urine Color Yellow Urine Clarity Clear Urine pH 6.5 Urine Specific [place] >=1.030 Urine Protein 30 mg/dL (NEG-TRACE) Urine Glucose (UA) Negative mg/dL (NEG) Urine Ketones (Stick) Negative mg/dL (NEG) Urine Blood Negative (NEG) Urine Nitrite Negative (NEG) Urine Bilirubin Negative (NEG) Urine Urobilinogen Dipstick 0.2 mg/dL (0.2 mg/dL) Urine Leukocyte Esterase Large (NEG) Urine RBC 0 /HPF (0-2) Urine WBC >40 /HPF (0-4) Urine Squamous Epithelial Cells Few /LPF Urine Bacteria 0 /HPF (0-FEW) White Blood Count 15.9 x10^3/uL (4.0-11.0) Red Blood Count 4.01 x10^6/uL (3.50-5.40) Hemoglobin 11.3 g/dL (12.0-15.5) Hematocrit 33.9 % (36.0-47.0) Mean Corpuscular Volume 85 fL (79-100) Mean Corpuscular Hemoglobin 28 pg (25-35) Mean Corpuscular Hemoglobin Concent 33 g/dL (31-37) Red Cell Distribution Width 13.0 % (11.5-14.5) Platelet Count 232 x10^3/uL (140-400) Neutrophils (%) (Auto) 85 % (31-73) Lymphocytes (%) (Auto) 9 % (24-48) Monocytes (%) (Auto) 6 % (0-9) Eosinophils (%) (Auto) 0 % (0-3) Basophils (%) (Auto) 0 % (0-3) Neutrophils # (Auto) 13.5 x10^3/uL (1.8-7.7) Lymphocytes # (Auto) 1.4 x10^3/uL (1.0-4.8) Monocytes # (Auto) 1.0 x10^3/uL (0.0-1.1) Eosinophils # (Auto) 0.0 x10^3/uL (0.0-0.7) Basophils # (Auto) 0.1 x10^3/uL (0.0-0.2) Segmented Neutrophils % 83 % (35-66) Band Neutrophils % 3 % (0-9) Lymphocytes % 8 % (24-48) Monocytes % 4 % (0-10) Eosinophils % 2 % (0-5) Platelet Estimate Adequate (ADEQUATE) Sodium Level 141 mmol/L (136-145) Potassium Level 3.4 mmol/L (3.5-5.1) Chloride Level 106 mmol/L (98-107) Carbon Dioxide Level 24 mmol/L (21-32) Anion Gap 11 (6-14) Blood Urea Nitrogen 14 mg/dL (7-20) Creatinine 0.8 mg/dL (0.6-1.0) Estimated GFR (Cockcroft-Gault) 72.2 BUN/Creatinine Ratio 18 (6-20) Glucose Level 132 mg/dL (70-99) Calcium Level 8.7 mg/dL (8.5-10.1) Total Bilirubin 0.7 mg/dL (0.2-1.0) Aspartate Amino Transf (AST/SGOT) 30 U/L (15-37) Alanine Aminotransferase (ALT/SGPT) 98 U/L (14-59) Alkaline Phosphatase 112 U/L (46-116) Total Protein 7.1 g/dL (6.4-8.2) Albumin 3.0 g/dL (3.4-5.0) Albumin/Globulin Ratio 0.7 (1.0-1.7) Amylase Level 23 U/L (25-115) Lipase 46 U/L (73-393) Laboratory Tests Test 03/03/19 09:15 03/04/19 04:04 Urine Collection Type Unknown Urine Color Yellow Urine Clarity Clear Urine pH 6.5 Urine Specific [place] >=1.030 Urine Protein 30 mg/dL (NEG-TRACE) Urine Glucose (UA) Negative mg/dL (NEG) Urine Ketones (Stick) Negative mg/dL (NEG) Urine Blood Negative (NEG) Urine Nitrite Negative (NEG) Urine Bilirubin Negative (NEG) Urine Urobilinogen Dipstick 0.2 mg/dL (0.2 mg/dL) Urine Leukocyte Esterase Large (NEG) Urine RBC 0 /HPF (0-2) Urine WBC >40 /HPF (0-4) Urine Squamous Epithelial Cells Few /LPF Urine Bacteria 0 /HPF (0-FEW) White Blood Count 15.9 x10^3/uL (4.0-11.0) Red Blood Count 4.01 x10^6/uL (3.50-5.40) Hemoglobin 11.3 g/dL (12.0-15.5) Hematocrit 33.9 % (36.0-47.0) Mean Corpuscular Volume 85 fL (79-100) Mean Corpuscular Hemoglobin 28 pg (25-35) Mean Corpuscular Hemoglobin Concent 33 g/dL (31-37) Red Cell Distribution Width 13.0 % (11.5-14.5) Platelet Count 232 x10^3/uL (140-400) Neutrophils (%) (Auto) 85 % (31-73) Lymphocytes (%) (Auto) 9 % (24-48) Monocytes (%) (Auto) 6 % (0-9) Eosinophils (%) (Auto) 0 % (0-3) Basophils (%) (Auto) 0 % (0-3) Neutrophils # (Auto) 13.5 x10^3/uL (1.8-7.7) Lymphocytes # (Auto) 1.4 x10^3/uL (1.0-4.8) Monocytes # (Auto) 1.0 x10^3/uL (0.0-1.1) Eosinophils # (Auto) 0.0 x10^3/uL (0.0-0.7) Basophils # (Auto) 0.1 x10^3/uL (0.0-0.2) Segmented Neutrophils % 83 % (35-66) Band Neutrophils % 3 % (0-9) Lymphocytes % 8 % (24-48) Monocytes % 4 % (0-10) Eosinophils % 2 % (0-5) Platelet Estimate Adequate (ADEQUATE) Sodium Level 141 mmol/L (136-145) Potassium Level 3.4 mmol/L (3.5-5.1) Chloride Level 106 mmol/L (98-107) Carbon Dioxide Level 24 mmol/L (21-32) Anion Gap 11 (6-14) Blood Urea Nitrogen 14 mg/dL (7-20) Creatinine 0.8 mg/dL (0.6-1.0) Estimated GFR (Cockcroft-Gault) 72.2 BUN/Creatinine Ratio 18 (6-20) Glucose Level 132 mg/dL (70-99) Calcium Level 8.7 mg/dL (8.5-10.1) Total Bilirubin 0.7 mg/dL (0.2-1.0) Aspartate Amino Transf (AST/SGOT) 30 U/L (15-37) Alanine Aminotransferase (ALT/SGPT) 98 U/L (14-59) Alkaline Phosphatase 112 U/L (46-116) Total Protein 7.1 g/dL (6.4-8.2) Albumin 3.0 g/dL (3.4-5.0) Albumin/Globulin Ratio 0.7 (1.0-1.7) Amylase Level 23 U/L (25-115) Lipase 46 U/L (73-393) Medications Active Scripts Medications Dose Route/Sig Max Daily Dose Days Date Category Dicyclomine Hcl 10 Mg Capsule 1 Cap PO BID PRN 11/27/18 Reported Imitrex (Sumatriptan Succinate) 100 Mg Tablet 1 Tab PO BID PRN 11/27/18 Reported Hydroxyzine Hcl 25 Mg Tablet 1 Tab PO DAILY PRN 11/27/18 Reported Diclofenac Sodium 75 Mg Tablet.dr 1 Tab PO BID 11/27/18 Reported Zolpidem Tartrate 10 Mg Tablet 10 Mg PO HS 11/27/18 Reported Lisinopril 10 Mg Tablet 1 Tab PO HS 06/14/18 Reported Gabapentin 800 Mg Tablet 1 Tab PO BID 06/17/14 Reported Cyclobenzaprine Hcl 10 Mg Tablet 1 Tab PO BID PRN 06/17/14 Reported Colestipol Hcl 1 Gm Tablet 1 Gm PO BID 06/17/14 Reported Tramadol Hcl 50 Mg Tablet 1 Tab PO BID 06/17/14 Reported Impression . 1. Abnormal CT chest with mass-like densities in the right upper lobe and left lower lobe. Likely inflammatory in nature as her CT chest from November did not reveal any lung masses. There were 1-2 mm tiny nodules, which have been stable when compared to previous CAT scans. 2. High-grade fever of 103 with nausea, vomiting and cough and I suspect viral syndrome. Infectious Disease has been following.- afebrile overnight 3. Minimal history of tobacco use. 4. Abnormal liver function tests--- improved 5. Normal lipase. No chemical evidence to suggest pancreatitis. 6. Normal D-dimer of 0.4. 7. DARA-resolved Plan . 1. These CT chest findings are likely inflammatory. We will continue with antibiotics and I have recommended to have a followup CT chest in 4-6 weeks. 2. If the mass is persistent, we will consider doing PET scan, the likelihood of that is less. 3. Continue antibiotics: zosyn, dapto, and marie 4. Follow ID recommendation. 5. Follow all cultures. D/W AMADOU WICK MD Mar 04, 2019 08:59
[2019-03-04] MEDS: COLESTIPOL HCL 1 GM TABLET PO SCH ×2 (10:00→22:00)
[2019-03-04 10:55] LABS: DIRECT BILIRUBIN 0.2 mg/dL (0.0-0.2)
[2019-03-04 11:00] VITALS: BP 125/62
[2019-03-04] MEDS ORDERED: PROCHLORPERAZINE 10 MG/2 ML VIAL. IV PRN (11:30)
--- NOTE | 2019-03-04 11:34 | PDOC ---
PROGRESS NOTES Subjective Still nauseated and not eating, urine culture with E. coli, WBC better, LFTs back to normal, abd sono unremarkable other than steatohepatitis Objective Afebrile General: dark room, washrag still on face Heart: RRR Lungs: CTA Abd: soft , generalized tenderness with palpation but no masses or rebound Ext: no C/C/E Skin: no rash WBC: 15.9 Hgb: 11.3 K+: 3.4 Vital Signs Vital Signs Date Time Temp Pulse Resp B/P (MAP) Pulse Ox O2 Delivery O2 Flow Rate FiO2 03/04/19 11:00 98.4 74 20 125/62 (83) 94 Room Air 98.4 I & O Intake and Output 03/04/19 07:00 Intake Total 30 ml Output Total 150 ml Balance -120 ml Intake Oral 30 ml Output Urine Total 150 ml # Voids 4 # Bowel Movements 2 Assessment and Plan Sepsis - gram negative, E. coli UTI most likely from bubble baths nausea, vomiting, abdominal pain - most likely reactive to infection, she does have a hx of IBS, now on PPI, compazine helps better than other meds Chest pain - due to reactive lymphadenopathy in lungs - prn Tylenol hx of ovarian cancer lung nodules suspicious per radiology for lung cancer or TB - pulm states they are reactive but will require reimaging tobacco use - quit a yr ago after 30 pack yr hx hx CAD fibromyalgia hx of seizure disorder OA Vicente GRESHAM MD Mar 04, 2019 11:34
--- NOTE | 2019-03-04 11:36 | PDOC ---
G I PROGRESS NOTE Subjective Pain improved, still present. Not vomiting. Physical Exam Lungs clear. RRR Abdomen soft. Some epigastrid/ruq tenderness. Review of Relevant I have reviewed the following items tori (where applicable) has been applied. Labs Laboratory Tests Test 03/02/19 11:45 03/02/19 12:53 03/02/19 14:30 03/02/19 18:50 Creatine Kinase 150 U/L (26-192) 134 U/L (26-192) Creatine Kinase MB (Mass) 2.0 ng/mL (0.0-3.6) 1.0 ng/mL (0.0-3.6) Creatine Kinase MB Relative Index 1.3 % (0-4) 0.7 % (0-4) Troponin I Quantitative < 0.017 ng/mL (0.000-0.055) < 0.017 ng/mL (0.000-0.055) Influenza Type A Antigen Negative (NEGATIVE) Influenza Type B Antigen Negative (NEGATIVE) Erythrocyte Sedimentation Rate 15 (0-25) Lactic Acid Level 0.9 mmol/L (0.4-2.0) Lipase 76 U/L (73-393) Test 03/03/19 03:10 03/03/19 09:15 03/04/19 04:04 White Blood Count 23.5 x10^3/uL (4.0-11.0) 15.9 x10^3/uL (4.0-11.0) Red Blood Count 4.29 x10^6/uL (3.50-5.40) 4.01 x10^6/uL (3.50-5.40) Hemoglobin 12.0 g/dL (12.0-15.5) 11.3 g/dL (12.0-15.5) Hematocrit 36.3 % (36.0-47.0) 33.9 % (36.0-47.0) Mean Corpuscular Volume 85 fL (79-100) 85 fL (79-100) Mean Corpuscular Hemoglobin 28 pg (25-35) 28 pg (25-35) Mean Corpuscular Hemoglobin Concent 33 g/dL (31-37) 33 g/dL (31-37) Red Cell Distribution Width 12.9 % (11.5-14.5) 13.0 % (11.5-14.5) Platelet Count 243 x10^3/uL (140-400) 232 x10^3/uL (140-400) Sodium Level 139 mmol/L (136-145) 141 mmol/L (136-145) Potassium Level 3.7 mmol/L (3.5-5.1) 3.4 mmol/L (3.5-5.1) Chloride Level 103 mmol/L (98-107) 106 mmol/L (98-107) Carbon Dioxide Level 24 mmol/L (21-32) 24 mmol/L (21-32) Anion Gap 12 (6-14) 11 (6-14) Blood Urea Nitrogen 18 mg/dL (7-20) 14 mg/dL (7-20) Creatinine 1.1 mg/dL (0.6-1.0) 0.8 mg/dL (0.6-1.0) Estimated GFR (Cockcroft-Gault) 50.0 72.2 Glucose Level 151 mg/dL (70-99) 132 mg/dL (70-99) Calcium Level 8.8 mg/dL (8.5-10.1) 8.7 mg/dL (8.5-10.1) Total Bilirubin 1.7 mg/dL (0.2-1.0) 0.7 mg/dL (0.2-1.0) Direct Bilirubin 0.8 mg/dL (0.0-0.2) 0.2 mg/dL (0.0-0.2) Aspartate Amino Transf (AST/SGOT) 99 U/L (15-37) 30 U/L (15-37) Alanine Aminotransferase (ALT/SGPT) 164 U/L (14-59) 98 U/L (14-59) Alkaline Phosphatase 141 U/L (46-116) 112 U/L (46-116) Total Protein 7.3 g/dL (6.4-8.2) 7.1 g/dL (6.4-8.2) Albumin 3.1 g/dL (3.4-5.0) 3.0 g/dL (3.4-5.0) Urine Collection Type Unknown Urine Color Yellow Urine Clarity Clear Urine pH 6.5 Urine Specific [place] >=1.030 Urine Protein 30 mg/dL (NEG-TRACE) Urine Glucose (UA) Negative mg/dL (NEG) Urine Ketones (Stick) Negative mg/dL (NEG) Urine Blood Negative (NEG) Urine Nitrite Negative (NEG) Urine Bilirubin Negative (NEG) Urine Urobilinogen Dipstick 0.2 mg/dL (0.2 mg/dL) Urine Leukocyte Esterase Large (NEG) Urine RBC 0 /HPF (0-2) Urine WBC >40 /HPF (0-4) Urine Squamous Epithelial Cells Few /LPF Urine Bacteria 0 /HPF (0-FEW) Neutrophils (%) (Auto) 85 % (31-73) Lymphocytes (%) (Auto) 9 % (24-48) Monocytes (%) (Auto) 6 % (0-9) Eosinophils (%) (Auto) 0 % (0-3) Basophils (%) (Auto) 0 % (0-3) Neutrophils # (Auto) 13.5 x10^3/uL (1.8-7.7) Lymphocytes # (Auto) 1.4 x10^3/uL (1.0-4.8) Monocytes # (Auto) 1.0 x10^3/uL (0.0-1.1) Eosinophils # (Auto) 0.0 x10^3/uL (0.0-0.7) Basophils # (Auto) 0.1 x10^3/uL (0.0-0.2) Segmented Neutrophils % 83 % (35-66) Band Neutrophils % 3 % (0-9) Lymphocytes % 8 % (24-48) Monocytes % 4 % (0-10) Eosinophils % 2 % (0-5) Platelet Estimate Adequate (ADEQUATE) BUN/Creatinine Ratio 18 (6-20) Albumin/Globulin Ratio 0.7 (1.0-1.7) Amylase Level 23 U/L (25-115) Lipase 46 U/L (73-393) Laboratory Tests Test 03/04/19 04:04 White Blood Count 15.9 x10^3/uL (4.0-11.0) Red Blood Count 4.01 x10^6/uL (3.50-5.40) Hemoglobin 11.3 g/dL (12.0-15.5) Hematocrit 33.9 % (36.0-47.0) Mean Corpuscular Volume 85 fL (79-100) Mean Corpuscular Hemoglobin 28 pg (25-35) Mean Corpuscular Hemoglobin Concent 33 g/dL (31-37) Red Cell Distribution Width 13.0 % (11.5-14.5) Platelet Count 232 x10^3/uL (140-400) Neutrophils (%) (Auto) 85 % (31-73) Lymphocytes (%) (Auto) 9 % (24-48) Monocytes (%) (Auto) 6 % (0-9) Eosinophils (%) (Auto) 0 % (0-3) Basophils (%) (Auto) 0 % (0-3) Neutrophils # (Auto) 13.5 x10^3/uL (1.8-7.7) Lymphocytes # (Auto) 1.4 x10^3/uL (1.0-4.8) Monocytes # (Auto) 1.0 x10^3/uL (0.0-1.1) Eosinophils # (Auto) 0.0 x10^3/uL (0.0-0.7) Basophils # (Auto) 0.1 x10^3/uL (0.0-0.2) Segmented Neutrophils % 83 % (35-66) Band Neutrophils % 3 % (0-9) Lymphocytes % 8 % (24-48) Monocytes % 4 % (0-10) Eosinophils % 2 % (0-5) Platelet Estimate Adequate (ADEQUATE) Sodium Level 141 mmol/L (136-145) Potassium Level 3.4 mmol/L (3.5-5.1) Chloride Level 106 mmol/L (98-107) Carbon Dioxide Level 24 mmol/L (21-32) Anion Gap 11 (6-14) Blood Urea Nitrogen 14 mg/dL (7-20) Creatinine 0.8 mg/dL (0.6-1.0) Estimated GFR (Cockcroft-Gault) 72.2 BUN/Creatinine Ratio 18 (6-20) Glucose Level 132 mg/dL (70-99) Calcium Level 8.7 mg/dL (8.5-10.1) Total Bilirubin 0.7 mg/dL (0.2-1.0) Direct Bilirubin 0.2 mg/dL (0.0-0.2) Aspartate Amino Transf (AST/SGOT) 30 U/L (15-37) Alanine Aminotransferase (ALT/SGPT) 98 U/L (14-59) Alkaline Phosphatase 112 U/L (46-116) Total Protein 7.1 g/dL (6.4-8.2) Albumin 3.0 g/dL (3.4-5.0) Albumin/Globulin Ratio 0.7 (1.0-1.7) Amylase Level 23 U/L (25-115) Lipase 46 U/L (73-393) Microbiology 03/02/19 Urine Culture - Preliminary, Resulted 03/02/19 Urine Culture Result 1 (REUBEN) - Preliminary, Resulted 03/02/19 Blood Culture - Preliminary, Resulted NO GROWTH AFTER 2 DAYS LFT's better; never dramatically elevated. Vitals/I & O Vital Sign - Last 24 Hours 03/03/19 03/03/19 03/03/19 03/03/19 15:00 19:44 20:00 20:19 Temp 98.4 98.1 98.4 98.1 Pulse 76 73 73 Resp 26 16 B/P (MAP) 101/42 (61) 118/55 (76) 118/55 Pulse Ox 97 95 O2 Delivery Room Air Room Air Room Air 03/03/19 03/03/19 03/03/19 03/04/19 20:19 21:19 23:26 03:07 Temp 98.0 98.6 98.0 98.6 Pulse 82 77 Resp 16 16 B/P (MAP) 103/63 (76) 134/60 (84) Pulse Ox 93 94 O2 Delivery Room Air Room Air Room Air Room Air 03/04/19 03/04/19 03/04/19 03/04/19 07:00 08:00 08:26 10:10 Temp 98.3 98.3 Pulse 73 Resp 16 B/P (MAP) 132/67 (88) Pulse Ox 95 95 95 O2 Delivery Room Air Room Air Room Air Room Air 03/04/19 11:00 Temp 98.4 98.4 Pulse 74 Resp 20 B/P (MAP) 125/62 (83) Pulse Ox 94 O2 Delivery Room Air Intake and Output 03/03/19 03/03/19 03/04/19 15:00 23:00 07:00 Intake Total 30 ml Output Total 150 ml Balance -150 ml 30 ml Images Sonogram OK post-juvenal. Problem List Problems Medical Problems: (1) Chest pain Status: Acute Assessment Epigastric pain, N, V. Peptic? With transiently elevated LFT's w/o evident stone, SOD? Plan of Care: Continue current Tx, Mgmt Plan of Care Note EGD tomorrow. Would keep on ice chips, no more than clears sparingly. Continue PPI. SULEMAN SALGADO MD Mar 04, 2019 11:36
--- NOTE | 2019-03-04 11:59 | PDOC ---
Infectious Disease Note Subjective Subjective Feeling little better Still c/o right-sided abdominal pain, chest discomfort and nausea No fevers last 24 hours + BM Not eating ROS ROS per HPI Vital Sign Vital Signs Vital Signs Date Time Temp Pulse Resp B/P (MAP) Pulse Ox O2 Delivery O2 Flow Rate FiO2 03/04/19 11:00 98.4 74 20 125/62 (83) 94 Room Air 98.4 Physical Exam PHYSICAL EXAM GENERAL: Looks weak but some better. NAD, coop HEENT: Pupils equally round, normal conjunctivae. Oropharynx pink, moist. No lesions. NECK: Supple. LUNGS: Clear to auscultation. CHEST: Tender to palpation but less HEART: S1 and S2. ABDOMEN: Obese, soft. Improved right lower quadrant tenderness without rebound. Bowel sounds present. EXTREMITIES: No gross edema or cyanosis. SKIN: Warm to touch. No signs of rash. NEUROLOGIC: Alert answering simple questions appropriately.Moving all ext Labs Lab Laboratory Tests Test 03/04/19 04:04 White Blood Count 15.9 x10^3/uL (4.0-11.0) Red Blood Count 4.01 x10^6/uL (3.50-5.40) Hemoglobin 11.3 g/dL (12.0-15.5) Hematocrit 33.9 % (36.0-47.0) Mean Corpuscular Volume 85 fL (79-100) Mean Corpuscular Hemoglobin 28 pg (25-35) Mean Corpuscular Hemoglobin Concent 33 g/dL (31-37) Red Cell Distribution Width 13.0 % (11.5-14.5) Platelet Count 232 x10^3/uL (140-400) Neutrophils (%) (Auto) 85 % (31-73) Lymphocytes (%) (Auto) 9 % (24-48) Monocytes (%) (Auto) 6 % (0-9) Eosinophils (%) (Auto) 0 % (0-3) Basophils (%) (Auto) 0 % (0-3) Neutrophils # (Auto) 13.5 x10^3/uL (1.8-7.7) Lymphocytes # (Auto) 1.4 x10^3/uL (1.0-4.8) Monocytes # (Auto) 1.0 x10^3/uL (0.0-1.1) Eosinophils # (Auto) 0.0 x10^3/uL (0.0-0.7) Basophils # (Auto) 0.1 x10^3/uL (0.0-0.2) Segmented Neutrophils % 83 % (35-66) Band Neutrophils % 3 % (0-9) Lymphocytes % 8 % (24-48) Monocytes % 4 % (0-10) Eosinophils % 2 % (0-5) Platelet Estimate Adequate (ADEQUATE) Sodium Level 141 mmol/L (136-145) Potassium Level 3.4 mmol/L (3.5-5.1) Chloride Level 106 mmol/L (98-107) Carbon Dioxide Level 24 mmol/L (21-32) Anion Gap 11 (6-14) Blood Urea Nitrogen 14 mg/dL (7-20) Creatinine 0.8 mg/dL (0.6-1.0) Estimated GFR (Cockcroft-Gault) 72.2 BUN/Creatinine Ratio 18 (6-20) Glucose Level 132 mg/dL (70-99) Calcium Level 8.7 mg/dL (8.5-10.1) Total Bilirubin 0.7 mg/dL (0.2-1.0) Direct Bilirubin 0.2 mg/dL (0.0-0.2) Aspartate Amino Transf (AST/SGOT) 30 U/L (15-37) Alanine Aminotransferase (ALT/SGPT) 98 U/L (14-59) Alkaline Phosphatase 112 U/L (46-116) Total Protein 7.1 g/dL (6.4-8.2) Albumin 3.0 g/dL (3.4-5.0) Albumin/Globulin Ratio 0.7 (1.0-1.7) Amylase Level 23 U/L (25-115) Lipase 46 U/L (73-393) Micro URINE CULTURE RES 1 Preliminary Escherichia coli 03/02/19 Blood Culture - Preliminary, Resulted NO GROWTH AFTER 2 DAYS Objective Assessment Sepsis, POA - Fever - better/lactic normal Leukocytosis - Worse ? reactive Transaminitis ? sepsis Acute encephalopathy - better Acute abdominal pain - better Atypical CP - Ct reviewed ? masses/infiltrate Fibromyalgia h/o seizures h/o E. coli in urine Plan Plan of Care Clinically looks some better this am Began Dapto, Zosyn, doxycycline and micafungin evening 03/02 CT scan chest/abd/pelvis w/ IV contrast only - reviewed Pulmonary following Rec ECHO but await CARD f/u Maintain hydration F/u labs and cults Antiemetic as directed Maintain aspiration precautions EGD tomorrow D/w nursing D/w at bedside D/c Daptomycin - blood cults neg - D/w Attending Co-Sign Attending Co-Sign The patient was seen and interviewed as well as examined at the bedside. The chart was reviewed. The case was discussed. Agree with the plan of care. JOSEY GARZA APRN Mar 04, 2019 11:59 VAN CHAVES MD Mar 04, 2019 13:34
[2019-03-04] MEDS: CYCLOBENZAPRINE 10 MG TABLET. PO PRN ×2 (12:18→22:05)
[2019-03-04 15:00] VITALS: BP 118/70
[2019-03-04] MEDS: SUMAtriptan SUCCINATE 100 MG TABLET PO PRN (18:06)
[2019-03-04 19:00] VITALS: BP 152/68
--- NOTE | 2019-03-04 19:10 | NUR ---
Patient transferred from [address] [place] [address] and arrived to unit via wheelchair, escorted by ODESSA Castellon. Report received at bedside from ODESSA Castellon and patient orientated to room. Patient in bed and call light within reach, will continue to monitor.
[2019-03-04] MEDS: ZOLPIDEM 5 MG TABLET. PO SCH (22:05)
[2019-03-04] MEDS: LISINOPRIL 10 MG TABLET PO SCH (22:08)
[2019-03-04] MEDS: MICAFUNGIN 100 MG in IV DEXTROSE 5% 100ML 100 ML IV SCH (22:11)
--- NOTE | 2019-03-04 22:25 | NUR ---
Patient's antibiotics off schedule d/t lack of patent IV line on transfer from [address] [place] [address]. New IV placed by Rosario, Nursing Track Grinder Operator and antibiotics re-started. Patient resting, will continue to monitor.
[2019-03-04 23:00] VITALS: BP 130/68
[2019-03-05] VITALS (13 sets, daily range): BP systolic 118–143; BP diastolic 58–73
[2019-03-05] MEDS: PIPERACILLIN/TAZOBACTAM 3.375 GM in IV NORMAL SALINE 50ML 50 ML IV SCH ×4 (01:23→18:35)
[2019-03-05 05:51] LABS: BASO # 0.1 x10^3/uL (0.0-0.2); BASO % 1 % (0-3); EOS # 0.2 x10^3/uL (0.0-0.7); EOS % 2 % (0-3); HEMATOCRIT 32.8 % (36.0-47.0); HEMOGLOBIN 11.2 g/dL (12.0-15.5); LYMPH % 23 % (24-48); MEAN CORPUSCULAR HEMOGLOBIN 29 pg (25-35); MEAN CORPUSCULAR HGB CONC 34 g/dL (31-37); MEAN CORPUSCULAR VOLUME 85 fL (79-100); MONO # 0.6 x10^3/uL (0.0-1.1); MONO % 7 % (0-9); NEUT % 68 % (31-73); PLATELET COUNT 241 x10^3/uL (140-400); RED BLOOD COUNT 3.85 x10^6/uL (3.50-5.40); RED CELL DISTRIBUTION WIDTH 13.2 % (11.5-14.5); WHITE BLOOD COUNT 8.8 x10^3/uL (4.0-11.0)
[2019-03-05] MEDS: PANTOPRAZOLE IV PUSH 40 MG VIAL. IVP SCH (05:55)
[2019-03-05] MEDS: POTASSIUM CL 20MEQ D5-0.45NACL 1,000 ML IV SCH ×2 (05:59→14:56)
[2019-03-05 06:17] LABS: ALBUMIN 2.9 g/dL (3.4-5.0); ALBUMIN/GLOBULIN RATIO 0.8 (1.0-1.7); CALCIUM 8.7 mg/dL (8.5-10.1); CREATININE 0.9 mg/dL (0.6-1.0); POTASSIUM 3.4 mmol/L (3.5-5.1); TOTAL BILIRUBIN 0.6 mg/dL (0.2-1.0); TOTAL PROTEIN 6.7 g/dL (6.4-8.2)
[2019-03-05] MEDS: LACTOBACILLUS RHAMNOSUS GG 1 CAPSULE. PO SCH ×2 (09:00→20:57)
[2019-03-05] MEDS: traMADol 50 MG TABLET PO SCH ×2 (09:21→20:58)
[2019-03-05] MEDS: GABAPENTIN 400 MG CAPSULE. PO SCH ×2 (09:21→20:56)
[2019-03-05] MEDS: COLESTIPOL HCL 1 GM TABLET PO SCH ×2 (09:22→20:57)
[2019-03-05] MEDS: DOXYCYCLINE HYCLATE 100 MG in IV DEXTROSE 5% 100ML 100 ML IV SCH ×2 (09:24→20:56)
--- NOTE | 2019-03-05 10:35 | PDOC ---
PULMONARY PROGRESS NOTES Subjective Looks much better fully awake, on room air, denies SOB or increase in cough Vitals Vital Signs Date Time Temp Pulse Resp B/P (MAP) Pulse Ox O2 Delivery O2 Flow Rate FiO2 03/05/19 07:00 98.3 80 18 118/68 (85) 91 Room Air 98.3 ROS: No Chest Pain, No Increase Cough General: Alert, Oriented X4 Lungs: Clear Cardiovascular: S1, S2 Abdomen: Soft Neuro Exam: Alert, Oriented, Normal Speech Extremities: No Edema Skin: Warm Labs Laboratory Tests Test 03/04/19 04:04 03/05/19 05:00 03/05/19 05:10 White Blood Count 15.9 x10^3/uL (4.0-11.0) 8.8 x10^3/uL (4.0-11.0) Red Blood Count 4.01 x10^6/uL (3.50-5.40) 3.85 x10^6/uL (3.50-5.40) Hemoglobin 11.3 g/dL (12.0-15.5) 11.2 g/dL (12.0-15.5) Hematocrit 33.9 % (36.0-47.0) 32.8 % (36.0-47.0) Mean Corpuscular Volume 85 fL (79-100) 85 fL (79-100) Mean Corpuscular Hemoglobin 28 pg (25-35) 29 pg (25-35) Mean Corpuscular Hemoglobin Concent 33 g/dL (31-37) 34 g/dL (31-37) Red Cell Distribution Width 13.0 % (11.5-14.5) 13.2 % (11.5-14.5) Platelet Count 232 x10^3/uL (140-400) 241 x10^3/uL (140-400) Neutrophils (%) (Auto) 85 % (31-73) 68 % (31-73) Lymphocytes (%) (Auto) 9 % (24-48) 23 % (24-48) Monocytes (%) (Auto) 6 % (0-9) 7 % (0-9) Eosinophils (%) (Auto) 0 % (0-3) 2 % (0-3) Basophils (%) (Auto) 0 % (0-3) 1 % (0-3) Neutrophils # (Auto) 13.5 x10^3/uL (1.8-7.7) 6.0 x10^3/uL (1.8-7.7) Lymphocytes # (Auto) 1.4 x10^3/uL (1.0-4.8) 2.0 x10^3/uL (1.0-4.8) Monocytes # (Auto) 1.0 x10^3/uL (0.0-1.1) 0.6 x10^3/uL (0.0-1.1) Eosinophils # (Auto) 0.0 x10^3/uL (0.0-0.7) 0.2 x10^3/uL (0.0-0.7) Basophils # (Auto) 0.1 x10^3/uL (0.0-0.2) 0.1 x10^3/uL (0.0-0.2) Segmented Neutrophils % 83 % (35-66) Band Neutrophils % 3 % (0-9) Lymphocytes % 8 % (24-48) Monocytes % 4 % (0-10) Eosinophils % 2 % (0-5) Platelet Estimate Adequate (ADEQUATE) Sodium Level 141 mmol/L (136-145) 144 mmol/L (136-145) Potassium Level 3.4 mmol/L (3.5-5.1) 3.4 mmol/L (3.5-5.1) Chloride Level 106 mmol/L (98-107) 110 mmol/L (98-107) Carbon Dioxide Level 24 mmol/L (21-32) 25 mmol/L (21-32) Anion Gap 11 (6-14) 9 (6-14) Blood Urea Nitrogen 14 mg/dL (7-20) 11 mg/dL (7-20) Creatinine 0.8 mg/dL (0.6-1.0) 0.9 mg/dL (0.6-1.0) Estimated GFR (Cockcroft-Gault) 72.2 63.0 BUN/Creatinine Ratio 18 (6-20) 12 (6-20) Glucose Level 132 mg/dL (70-99) 96 mg/dL (70-99) Calcium Level 8.7 mg/dL (8.5-10.1) 8.7 mg/dL (8.5-10.1) Total Bilirubin 0.7 mg/dL (0.2-1.0) 0.6 mg/dL (0.2-1.0) Direct Bilirubin 0.2 mg/dL (0.0-0.2) Aspartate Amino Transf (AST/SGOT) 30 U/L (15-37) 23 U/L (15-37) Alanine Aminotransferase (ALT/SGPT) 98 U/L (14-59) 69 U/L (14-59) Alkaline Phosphatase 112 U/L (46-116) 94 U/L (46-116) Total Protein 7.1 g/dL (6.4-8.2) 6.7 g/dL (6.4-8.2) Albumin 3.0 g/dL (3.4-5.0) 2.9 g/dL (3.4-5.0) Albumin/Globulin Ratio 0.7 (1.0-1.7) 0.8 (1.0-1.7) Amylase Level 23 U/L (25-115) Lipase 46 U/L (73-393) Laboratory Tests Test 03/05/19 05:00 03/05/19 05:10 Sodium Level 144 mmol/L (136-145) Potassium Level 3.4 mmol/L (3.5-5.1) Chloride Level 110 mmol/L (98-107) Carbon Dioxide Level 25 mmol/L (21-32) Anion Gap 9 (6-14) Blood Urea Nitrogen 11 mg/dL (7-20) Creatinine 0.9 mg/dL (0.6-1.0) Estimated GFR (Cockcroft-Gault) 63.0 BUN/Creatinine Ratio 12 (6-20) Glucose Level 96 mg/dL (70-99) Calcium Level 8.7 mg/dL (8.5-10.1) Total Bilirubin 0.6 mg/dL (0.2-1.0) Aspartate Amino Transf (AST/SGOT) 23 U/L (15-37) Alanine Aminotransferase (ALT/SGPT) 69 U/L (14-59) Alkaline Phosphatase 94 U/L (46-116) Total Protein 6.7 g/dL (6.4-8.2) Albumin 2.9 g/dL (3.4-5.0) Albumin/Globulin Ratio 0.8 (1.0-1.7) White Blood Count 8.8 x10^3/uL (4.0-11.0) Red Blood Count 3.85 x10^6/uL (3.50-5.40) Hemoglobin 11.2 g/dL (12.0-15.5) Hematocrit 32.8 % (36.0-47.0) Mean Corpuscular Volume 85 fL (79-100) Mean Corpuscular Hemoglobin 29 pg (25-35) Mean Corpuscular Hemoglobin Concent 34 g/dL (31-37) Red Cell Distribution Width 13.2 % (11.5-14.5) Platelet Count 241 x10^3/uL (140-400) Neutrophils (%) (Auto) 68 % (31-73) Lymphocytes (%) (Auto) 23 % (24-48) Monocytes (%) (Auto) 7 % (0-9) Eosinophils (%) (Auto) 2 % (0-3) Basophils (%) (Auto) 1 % (0-3) Neutrophils # (Auto) 6.0 x10^3/uL (1.8-7.7) Lymphocytes # (Auto) 2.0 x10^3/uL (1.0-4.8) Monocytes # (Auto) 0.6 x10^3/uL (0.0-1.1) Eosinophils # (Auto) 0.2 x10^3/uL (0.0-0.7) Basophils # (Auto) 0.1 x10^3/uL (0.0-0.2) Medications Active Scripts Medications Dose Route/Sig Max Daily Dose Days Date Category Dicyclomine Hcl 10 Mg Capsule 1 Cap PO BID PRN 11/27/18 Reported Imitrex (Sumatriptan Succinate) 100 Mg Tablet 1 Tab PO BID PRN 11/27/18 Reported Hydroxyzine Hcl 25 Mg Tablet 1 Tab PO DAILY PRN 11/27/18 Reported Diclofenac Sodium 75 Mg Tablet.dr 1 Tab PO BID 11/27/18 Reported Zolpidem Tartrate 10 Mg Tablet 10 Mg PO HS 11/27/18 Reported Lisinopril 10 Mg Tablet 1 Tab PO HS 06/14/18 Reported Gabapentin 800 Mg Tablet 1 Tab PO BID 06/17/14 Reported Cyclobenzaprine Hcl 10 Mg Tablet 1 Tab PO BID PRN 06/17/14 Reported Colestipol Hcl 1 Gm Tablet 1 Gm PO BID 06/17/14 Reported Tramadol Hcl 50 Mg Tablet 1 Tab PO BID 06/17/14 Reported Impression . 1. Abnormal CT chest with mass-like densities in the right upper lobe and left lower lobe. Likely inflammatory in nature as her CT chest from November did not reveal any lung masses. There were 1-2 mm tiny nodules, which have been stable when compared to previous CAT scans. 2. High-grade fever of 103 with nausea, vomiting and cough POA and I suspect viral syndrome. Infectious Disease has been following.- afebrile overnight 3. Minimal history of tobacco use. 4. Abnormal liver function tests--- 5. Normal lipase. No chemical evidence to suggest pancreatitis. 6. Normal D-dimer of 0.4. 7. DARA-resolved 8. E-Coli UTI Plan . 1. These CT chest findings are likely inflammatory. We will continue with antibiotics and I have recommended to have a followup CT chest in 4-6 weeks. 2. If the masses are persistent, we will consider doing PET scan, the likelih ood of that is less. 3. Continue antibiotics: zosyn, dapto, and marie 4. Follow ID recommendation. 5. Follow all cultures.E-coli in urine D/W AMADOU WICK MD Mar 05, 2019 10:35
[2019-03-05] MEDS: IV RINGERS,LACTATED 1000ML 1,000 ML IV SCH ×2 (10:40→18:40)
[2019-03-05] MEDS ORDERED: MIDAZOLAM HCL/PF 2 MG/2 ML VIAL. IV PRN (10:45)
[2019-03-05] MEDS ORDERED: fentaNYL PF VIAL 100 MCG/2 ML VIAL IV PRN ×2 (10:45)
[2019-03-05] MEDS ORDERED: LIDOCAINE 1% PF 2 ML VIAL. ID PRN (10:45)
--- NOTE | 2019-03-05 11:32 | PDOC ---
Infectious Disease Note Subjective Subjective Feeling better N/V better No fevers last 24 hours + BM has some appetite Vital Sign Vital Signs Vital Signs Date Time Temp Pulse Resp B/P (MAP) Pulse Ox O2 Delivery O2 Flow Rate FiO2 03/05/19 11:00 98.1 67 18 139/73 (95) 95 Room Air 98.1 Physical Exam PHYSICAL EXAM GENERAL: Looks much better. NAD, coop HEENT: Pupils equally round, normal conjunctivae. Oropharynx pink, moist. No lesions. NECK: Supple. LUNGS: Clear to auscultation. CHEST: Tender to palpation but less HEART: S1 and S2. ABDOMEN: Obese, soft. Improved right lower quadrant tenderness without rebound. Bowel sounds present. EXTREMITIES: No gross edema or cyanosis. SKIN: Warm to touch. No signs of rash. NEUROLOGIC: Alert answering simple questions appropriately.Moving all ext Labs Lab Laboratory Tests Test 03/05/19 05:00 03/05/19 05:10 Sodium Level 144 mmol/L (136-145) Potassium Level 3.4 mmol/L (3.5-5.1) Chloride Level 110 mmol/L (98-107) Carbon Dioxide Level 25 mmol/L (21-32) Anion Gap 9 (6-14) Blood Urea Nitrogen 11 mg/dL (7-20) Creatinine 0.9 mg/dL (0.6-1.0) Estimated GFR (Cockcroft-Gault) 63.0 BUN/Creatinine Ratio 12 (6-20) Glucose Level 96 mg/dL (70-99) Calcium Level 8.7 mg/dL (8.5-10.1) Total Bilirubin 0.6 mg/dL (0.2-1.0) Aspartate Amino Transf (AST/SGOT) 23 U/L (15-37) Alanine Aminotransferase (ALT/SGPT) 69 U/L (14-59) Alkaline Phosphatase 94 U/L (46-116) Total Protein 6.7 g/dL (6.4-8.2) Albumin 2.9 g/dL (3.4-5.0) Albumin/Globulin Ratio 0.8 (1.0-1.7) White Blood Count 8.8 x10^3/uL (4.0-11.0) Red Blood Count 3.85 x10^6/uL (3.50-5.40) Hemoglobin 11.2 g/dL (12.0-15.5) Hematocrit 32.8 % (36.0-47.0) Mean Corpuscular Volume 85 fL (79-100) Mean Corpuscular Hemoglobin 29 pg (25-35) Mean Corpuscular Hemoglobin Concent 34 g/dL (31-37) Red Cell Distribution Width 13.2 % (11.5-14.5) Platelet Count 241 x10^3/uL (140-400) Neutrophils (%) (Auto) 68 % (31-73) Lymphocytes (%) (Auto) 23 % (24-48) Monocytes (%) (Auto) 7 % (0-9) Eosinophils (%) (Auto) 2 % (0-3) Basophils (%) (Auto) 1 % (0-3) Neutrophils # (Auto) 6.0 x10^3/uL (1.8-7.7) Lymphocytes # (Auto) 2.0 x10^3/uL (1.0-4.8) Monocytes # (Auto) 0.6 x10^3/uL (0.0-1.1) Eosinophils # (Auto) 0.2 x10^3/uL (0.0-0.7) Basophils # (Auto) 0.1 x10^3/uL (0.0-0.2) Micro Impression: 1. Bilateral pulmonary masses are suspicious for primary lung cancer especially if the patient is a smoker. Atypical pneumonia including TB is possible. 2. Mild mediastinal lymphadenopathy. End Impression CT SCAN OF THE ABDOMEN WITH IV CONTRAST: Findings: Liver: Unremarkable Spleen: Unremarkable Pancreas: Unremarkable Adrenal Glands: Unremarkable Kidneys: Small hypoattenuating lesions in the kidneys bilaterally. There has been prior cholecystectomy. The common bile duct is mildly dilated however this is not unexpected in a postcholecystectomy patient. Evaluation of stomach and bowel is limited without oral contrast. There is no mass or lymphadenopathy. There is no free air. There is no free fluid. CT OF THE PELVIS WITH IV CONTRAST: There is no lymphadenopathy or free fluid. The bladder appears normal. There is no pericolonic inflammation. The appendix is not seen. Impression: Indeterminate lesions in the kidneys bilaterally could be cysts. The patient should have follow-up bilateral renal ultrasound as an outpatient Objective Assessment Sepsis, POA - Fever - better/lactic normal Leukocytosis - better Transaminitis -better Acute encephalopathy - better Acute abdominal pain - better Atypical CP - Ct reviewed ? masses/infiltrate Fibromyalgia h/o seizures h/o E. coli in urine 03/02 Plan Plan of Care Clinically looks better this am D/c Micafungin Cont Zosyn, doxycycline 03/02 CT scan chest/abd/pelvis w/ IV contrast only - reviewed Pulmonary following Rec ECHO but await CARD f/u Maintain hydration F/u labs and cults Maintain aspiration precautions EGD today D/w nursing VAN CHAVES MD Mar 05, 2019 11:32
--- NOTE | 2019-03-05 12:11 | NUR ---
SS following for discharge planning. SS reviewed pt chart. Pt is from with spouse and is currently on room air. SS will continue to follow for discharge planning.
[2019-03-05] MEDS ORDERED: LIDOCAINE 2% PF 5 ML VIAL. ONE (13:36)
[2019-03-05] MEDS ORDERED: PROPOFOL 20 ML IV ONE (13:36)
--- NOTE | 2019-03-05 13:52 | PDOC4 ---
Operative Note Operative Note EGD Meds propofol per anesthesia Pre-op dx abd/chest pain post-op dx non-erosive gastritis Plan advance diet acid suppressive therapy JOHN HOLDER MD Mar 05, 2019 13:52
--- NOTE | 2019-03-05 14:12 | PDOC ---
PROGRESS NOTES Subjective Subjective Patient feeling better. CT abd pelvis and chest do not confirm malignancy. Suspect CAP. Patient also has UTI with E.Coli Objective Objective Vital Signs Date Time Temp Pulse Resp B/P (MAP) Pulse Ox O2 Delivery O2 Flow Rate FiO2 03/05/19 13:49 97.7 62 18 115/57 97 Room Air 2 97.7 Intake and Output 03/05/19 06:59 # Voids 6 # Bowel Movements 1 Physical Exam Abdomen: Normal bowel sounds Heart: Regular rate Extremities: No clubbing General: Alert HEENT: Atraumatic Lungs: Clear to auscultation Assessment Assessment Problems Medical Problems: (1) Chest pain Status: Acute Sepsis Suspect CAP nausea, vomiting, abdominal pain UTI-Ecoli tobacco use hx CAD fibromyalgia hx of seizure disorder OA Plan Plan of Care Await Clx and sensitivity EGD today Continue IV antibx Continue ID eval Comment Review of Relevant I have reviewed the following items tori (where applicable) has been applied. Labs Laboratory Tests Test 03/04/19 04:04 03/05/19 05:00 03/05/19 05:10 White Blood Count 15.9 x10^3/uL (4.0-11.0) 8.8 x10^3/uL (4.0-11.0) Red Blood Count 4.01 x10^6/uL (3.50-5.40) 3.85 x10^6/uL (3.50-5.40) Hemoglobin 11.3 g/dL (12.0-15.5) 11.2 g/dL (12.0-15.5) Hematocrit 33.9 % (36.0-47.0) 32.8 % (36.0-47.0) Mean Corpuscular Volume 85 fL (79-100) 85 fL (79-100) Mean Corpuscular Hemoglobin 28 pg (25-35) 29 pg (25-35) Mean Corpuscular Hemoglobin Concent 33 g/dL (31-37) 34 g/dL (31-37) Red Cell Distribution Width 13.0 % (11.5-14.5) 13.2 % (11.5-14.5) Platelet Count 232 x10^3/uL (140-400) 241 x10^3/uL (140-400) Neutrophils (%) (Auto) 85 % (31-73) 68 % (31-73) Lymphocytes (%) (Auto) 9 % (24-48) 23 % (24-48) Monocytes (%) (Auto) 6 % (0-9) 7 % (0-9) Eosinophils (%) (Auto) 0 % (0-3) 2 % (0-3) Basophils (%) (Auto) 0 % (0-3) 1 % (0-3) Neutrophils # (Auto) 13.5 x10^3/uL (1.8-7.7) 6.0 x10^3/uL (1.8-7.7) Lymphocytes # (Auto) 1.4 x10^3/uL (1.0-4.8) 2.0 x10^3/uL (1.0-4.8) Monocytes # (Auto) 1.0 x10^3/uL (0.0-1.1) 0.6 x10^3/uL (0.0-1.1) Eosinophils # (Auto) 0.0 x10^3/uL (0.0-0.7) 0.2 x10^3/uL (0.0-0.7) Basophils # (Auto) 0.1 x10^3/uL (0.0-0.2) 0.1 x10^3/uL (0.0-0.2) Segmented Neutrophils % 83 % (35-66) Band Neutrophils % 3 % (0-9) Lymphocytes % 8 % (24-48) Monocytes % 4 % (0-10) Eosinophils % 2 % (0-5) Platelet Estimate Adequate (ADEQUATE) Sodium Level 141 mmol/L (136-145) 144 mmol/L (136-145) Potassium Level 3.4 mmol/L (3.5-5.1) 3.4 mmol/L (3.5-5.1) Chloride Level 106 mmol/L (98-107) 110 mmol/L (98-107) Carbon Dioxide Level 24 mmol/L (21-32) 25 mmol/L (21-32) Anion Gap 11 (6-14) 9 (6-14) Blood Urea Nitrogen 14 mg/dL (7-20) 11 mg/dL (7-20) Creatinine 0.8 mg/dL (0.6-1.0) 0.9 mg/dL (0.6-1.0) Estimated GFR (Cockcroft-Gault) 72.2 63.0 BUN/Creatinine Ratio 18 (6-20) 12 (6-20) Glucose Level 132 mg/dL (70-99) 96 mg/dL (70-99) Calcium Level 8.7 mg/dL (8.5-10.1) 8.7 mg/dL (8.5-10.1) Total Bilirubin 0.7 mg/dL (0.2-1.0) 0.6 mg/dL (0.2-1.0) Direct Bilirubin 0.2 mg/dL (0.0-0.2) Aspartate Amino Transf (AST/SGOT) 30 U/L (15-37) 23 U/L (15-37) Alanine Aminotransferase (ALT/SGPT) 98 U/L (14-59) 69 U/L (14-59) Alkaline Phosphatase 112 U/L (46-116) 94 U/L (46-116) Total Protein 7.1 g/dL (6.4-8.2) 6.7 g/dL (6.4-8.2) Albumin 3.0 g/dL (3.4-5.0) 2.9 g/dL (3.4-5.0) Albumin/Globulin Ratio 0.7 (1.0-1.7) 0.8 (1.0-1.7) Amylase Level 23 U/L (25-115) Lipase 46 U/L (73-393) Laboratory Tests Test 03/05/19 05:00 03/05/19 05:10 Sodium Level 144 mmol/L (136-145) Potassium Level 3.4 mmol/L (3.5-5.1) Chloride Level 110 mmol/L (98-107) Carbon Dioxide Level 25 mmol/L (21-32) Anion Gap 9 (6-14) Blood Urea Nitrogen 11 mg/dL (7-20) Creatinine 0.9 mg/dL (0.6-1.0) Estimated GFR (Cockcroft-Gault) 63.0 BUN/Creatinine Ratio 12 (6-20) Glucose Level 96 mg/dL (70-99) Calcium Level 8.7 mg/dL (8.5-10.1) Total Bilirubin 0.6 mg/dL (0.2-1.0) Aspartate Amino Transf (AST/SGOT) 23 U/L (15-37) Alanine Aminotransferase (ALT/SGPT) 69 U/L (14-59) Alkaline Phosphatase 94 U/L (46-116) Total Protein 6.7 g/dL (6.4-8.2) Albumin 2.9 g/dL (3.4-5.0) Albumin/Globulin Ratio 0.8 (1.0-1.7) White Blood Count 8.8 x10^3/uL (4.0-11.0) Red Blood Count 3.85 x10^6/uL (3.50-5.40) Hemoglobin 11.2 g/dL (12.0-15.5) Hematocrit 32.8 % (36.0-47.0) Mean Corpuscular Volume 85 fL (79-100) Mean Corpuscular Hemoglobin 29 pg (25-35) Mean Corpuscular Hemoglobin Concent 34 g/dL (31-37) Red Cell Distribution Width 13.2 % (11.5-14.5) Platelet Count 241 x10^3/uL (140-400) Neutrophils (%) (Auto) 68 % (31-73) Lymphocytes (%) (Auto) 23 % (24-48) Monocytes (%) (Auto) 7 % (0-9) Eosinophils (%) (Auto) 2 % (0-3) Basophils (%) (Auto) 1 % (0-3) Neutrophils # (Auto) 6.0 x10^3/uL (1.8-7.7) Lymphocytes # (Auto) 2.0 x10^3/uL (1.0-4.8) Monocytes # (Auto) 0.6 x10^3/uL (0.0-1.1) Eosinophils # (Auto) 0.2 x10^3/uL (0.0-0.7) Basophils # (Auto) 0.1 x10^3/uL (0.0-0.2) Microbiology 03/02/19 Urine Culture - Preliminary, Resulted 03/02/19 Urine Culture Result 1 (REUBEN) - Preliminary, Resulted 03/02/19 Blood Culture - Preliminary, Resulted NO GROWTH AFTER 3 DAYS Medications Current Medications Aspirin (Children'S Aspirin) 324 mg 1X ONCE PO Last administered on 03/02/19at 10:27; Start 03/02/19 at 10:00; Stop 03/02/19 at 10:01; Status DC Sodium Chloride 500 ml @ 500 mls/hr 1X ONCE IV Last administered on 03/02/19at 10:25; Start 03/02/19 at 10:00; Stop 03/02/19 at 10:59; Status DC Ondansetron HCl (Zofran) 4 mg 1X ONCE IV Last administered on 03/02/19at 10:28; Start 03/02/19 at 10:00; Stop 03/02/19 at 10:01; Status DC Morphine Sulfate (Morphine Sulfate) 2 mg 1X ONCE IV Last administered on 03/02/19at 11:09; Start 03/02/19 at 11:00; Stop 03/02/19 at 11:03; Status DC Ondansetron HCl (Zofran) 4 mg PRN Q8HRS PRN IV NAUSEA/VOMITING Last administered on 03/03/19at 01:20; Start 03/02/19 at 12:15; Stop 03/03/19 at 08:36; Status DC Morphine Sulfate (Morphine Sulfate) 2 mg PRN Q2HR PRN IV PAIN Last administered on 03/03/19at 01:19; Start 03/02/19 at 12:15; Stop 03/03/19 at 12:14; Status DC Sodium Chloride 1,000 ml @ 100 mls/hr Q10H IV Last administered on 03/03/19at 00:27; Start 03/02/19 at 12:01; Stop 03/03/19 at 12:00; Status DC Acetaminophen (Tylenol) 650 mg PRN Q6HRS PRN PO FEVER Last administered on 03/02/19at 21:32; Start 03/02/19 at 15:00 Colestipol HCl (Colestid) 1 gm BID@1000,2200 PO Last administered on 03/05/19 09:22; Start 03/02/19 at 22:00 Cyclobenzaprine HCl (Flexeril) 10 mg BID PRN PO MUSCLE SPASMS Last administered on 03/04/19at 22:05; Start 03/02/19 at 16:45 Dicyclomine HCl (Bentyl) 10 mg BID PRN PO STOMACH PAIN/CRAMPING Last administered on 03/04/19at 22:05; Start 03/02/19 at 16:45 Hydroxyzine HCl (Atarax) 25 mg DAILY PRN PO ITCHING; Start 03/02/19 at 16:45 Lisinopril (Prinivil) 10 mg HS PO Last administered on 03/04/19at 22:08; Start 03/02/19 at 21:00 Sumatriptan Succinate (Imitrex) 100 mg BID PRN PO MIGRAINE HEADACHE Last administered on 03/04/19 18:06; Start 03/02/19 at 16:45 Tramadol HCl (Ultram) 50 mg BID PO Last administered on 03/05/19 09:21; Start 03/02/19 at 21:00 Gabapentin (Neurontin) 800 mg BID PO Last administered on 03/05/19 09:21; Start 03/02/19 at 21:00 Zolpidem Tartrate (Ambien) 5 mg QHS PO Last administered on 03/04/19at 22:05; Start 03/02/19 at 21:00 Doxycycline Hyclate 100 mg/ Dextrose 100 ml @ 50 mls/hr Q12HR IV Last administered on 03/05/19at 09:24; Start 03/02/19 at 21:00 Piperacillin Sod/ Tazobactam Sod 3.375 gm/Sodium Chloride 50 ml @ 100 mls/hr Q6HRS IV Last administered on 03/05/19at 05:56; Start 03/02/19 at 18:00 Vancomycin HCl (Vanco Per Pharmacy) 1 each PRN DAILY PRN MC SEE COMMENTS; Start 03/02/19 at 17:45; Status Cancel Micafungin Sodium 100 mg/Dextrose 100 ml @ 100 mls/hr Q24H IV Last administered on 03/04/19at 22:11; Start 03/02/19 at 18:00; Stop 03/05/19 at 12:02; Status DC Vancomycin HCl 2 gm/Sodium Chloride 500 ml @ 250 mls/hr 1X ONCE IV ; Start 03/02/19 at 19:00; Stop 03/02/19 at 20:59; Status Cancel Daptomycin 480 mg/ Sodium Chloride 50 ml @ 100 mls/hr Q24H IV Last administered on 03/03/19at 20:17; Start 03/02/19 at 18:00; Stop 03/04/19 at 13:35; Status DC Iohexol (Omnipaque 300 Mg/ml) 75 ml 1X ONCE IV Last administered on 03/02/19at 18:21; Start 03/02/19 at 18:00; Stop 03/02/19 at 18:02; Status DC Info (CONTRAST GIVEN -- Rx MONITORING) 1 each PRN DAILY PRN MC SEE COMMENTS; Start 03/02/19 at 18:15; Stop 03/04/19 at 18:14; Status DC Ondansetron HCl (Zofran) 8 mg PRN Q6HRS PRN IVP NAUSEA/VOMITING, 1st CHOICE Last administered on 03/04/19at 12:09; Start 03/03/19 at 08:45 Metoclopramide HCl (Reglan Vial) 10 mg PRN Q6HRS PRN IVP NAUSEA/VOMITING, 2nd CHOICE Last administered on 03/04/19at 06:05; Start 03/03/19 at 12:00 Promethazine HCl (Phenergan Supp) 25 mg PRN Q6HRS PRN [place] NAUSEA/VOMITING Last administered on 03/03/19at 16:27; Start 03/03/19 at 12:00 Prochlorperazine Edisylate (Compazine) 10 mg PRN Q6HRS PRN IM NAUSEA/VOMITING Last administered on 03/04/19at 08:24; Start 03/03/19 at 12:00 Sodium Chloride (Normal Saline Flush) 3 ml QSHIFT PRN IV AFTER MEDS AND BLOOD DRAWS; Start 03/03/19 at 12:15 Potassium Chloride/Dextrose/ Sod Cl 1,000 ml @ 100 mls/hr Q10H IV Last admin istered on 03/05/19at 05:59; Start 03/03/19 at 12:02 Lactobacillus Rhamnosus (Culturelle) 1 cap BID PO Last administered on 03/04at 22:05; Start 03/03/19 at 21:00 Pantoprazole Sodium (PROTONIX VIAL for IV PUSH) 40 mg BIDAC IVP Last administered on 03/05/19at 05:55; Start 03/03/19 at 16:30; Stop 03/05/19 at 14:01; Status DC Prochlorperazine Edisylate (Compazine) 10 mg PRN Q6HRS PRN IV NAUSEA/VOMITING, 3RD CHOICE Last administered on 03/04/19at 17:56; Start 03/04/19 at 11:30 Midazolam HCl (Versed) 2 mg PRN 1X PRN IV PRIOR TO PROCEDURE; Start 03/05/19 at 10:45; Stop 03/06/19 at 10:44 Fentanyl Citrate (Fentanyl 2ml Vial) 25 mcg PRN Q5MIN PRN IV X 2 DOSES FOR PAIN; Start 03/05/19 at 10:45; Stop 03/06/19 at 10:44 Fentanyl Citrate (Fentanyl 2ml Vial) 50 mcg PRN Q5MIN PRN IV X 2 DOSES FOR PAIN; Start 03/05/19 at 10:45; Stop 03/06/19 at 10:44 Ringer's Solution 1,000 ml @ 125 mls/hr Q8H IV ; Start 03/05/19 at 10:40; Stop 03/05/19 at 22:39 Lidocaine HCl (Xylocaine-Mpf 1% 2ml Vial) 2 ml 1X PRN PRN ID IV START; Start 03/05/19 at 10:45; Stop 03/06/19 at 10:44 Propofol 20 ml @ As Directed STK-MED ONCE IV ; Start 03/05/19 at 13:36; Stop 03/05/19 at 13:36; Status DC Lidocaine HCl (Lidocaine Pf 2% Vial) 5 ml STK-MED ONCE .ROUTE ; Start 03/05/19 at 13:36; Stop 03/05/19 at 13:36; Status DC Pantoprazole Sodium (Protonix) 40 mg DAILYAC PO ; Start 03/06/19 at 07:30; Status UNV Active Scripts Active Reported Dicyclomine Hcl 10 Mg Capsule 1 Cap PO BID PRN Imitrex (Sumatriptan Succinate) 100 Mg Tablet 1 Tab PO BID PRN Hydroxyzine Hcl 25 Mg Tablet 1 Tab PO DAILY PRN Diclofenac Sodium 75 Mg Tablet.dr 1 Tab PO BID Zolpidem Tartrate 10 Mg Tablet 10 Mg PO HS Lisinopril 10 Mg Tablet 1 Tab PO HS Gabapentin 800 Mg Tablet 1 Tab PO BID Cyclobenzaprine Hcl 10 Mg Tablet 1 Tab PO BID PRN Colestipol Hcl 1 Gm Tablet 1 Gm PO BID Tramadol Hcl 50 Mg Tablet 1 Tab PO BID Vitals/I & O Vital Sign - Last 24 Hours 03/04/19 03/04/19 03/04/19/6/19 15:00 19:00 20:30 22:05 Temp 98.8 98.6 98.8 98.6 Pulse 71 81 Resp 18 18 16 B/P (MAP) 118/70 (86) 152/68 (96) Pulse Ox 96 94 O2 Delivery Room Air Room Air Room Air Room Air 03/04/19 03/04/19 03/04/19 03/05/19 22:08 23:00 23:59 03:00 Temp 98.7 98.5 98.7 98.5 Pulse 80 62 64 Resp 18 18 18 B/P (MAP) 132/67 130/68 (88) 127/65 (85) Pulse Ox 95 93 O2 Delivery Room Air Room Air Room Air 03/05/19 03/05/19 03/05/19 03/05/19 07:00 11:00 12:22 13:49 Temp 98.3 98.1 97.5 97.7 98.3 98.1 97.5 97.7 Pulse 80 67 76 62 Resp 18 18 20 18 B/P (MAP) 118/68 (85) 139/73 (95) 115/57 Pulse Ox 91 95 96 97 O2 Delivery Room Air Room Air Room Air O2 Flow Rate 2 SULEMAN BLACK MD Mar 05, 2019 14:12
[2019-03-05] MEDS: ACETAMINOPHEN 325 MG TABLET. PO PRN ×2 (16:07→21:00)
[2019-03-05] MEDS: ONDANSETRON PF 4 MG/2 ML VIAL. IVP PRN (16:08)
[2019-03-05] MEDS: SUMAtriptan SUCCINATE 100 MG TABLET PO PRN (18:38)
[2019-03-05] MEDS: LISINOPRIL 10 MG TABLET PO SCH (20:57)
[2019-03-05] MEDS: ZOLPIDEM 5 MG TABLET. PO SCH (20:57)
[2019-03-05] MEDS: CYCLOBENZAPRINE 10 MG TABLET. PO PRN (21:00)
[2019-03-06] MEDS: POTASSIUM CL 20MEQ D5-0.45NACL 1,000 ML IV SCH ×4 (00:02→18:29)
[2019-03-06] MEDS: PIPERACILLIN/TAZOBACTAM 3.375 GM in IV NORMAL SALINE 50ML 50 ML IV SCH ×2 (00:14→05:26)
[2019-03-06 03:00] VITALS: BP 132/65
[2019-03-06] MEDS: ACETAMINOPHEN 325 MG TABLET. PO PRN (05:27)
[2019-03-06 07:00] VITALS: BP 140/68
[2019-03-06] MEDS: COLESTIPOL HCL 1 GM TABLET PO SCH ×2 (08:10→21:36)
[2019-03-06] MEDS: traMADol 50 MG TABLET PO SCH ×2 (08:11→18:28)
[2019-03-06] MEDS: LACTOBACILLUS RHAMNOSUS GG 1 CAPSULE. PO SCH ×2 (08:12→21:29)
[2019-03-06] MEDS: SUMAtriptan SUCCINATE 100 MG TABLET PO PRN ×2 (08:12→19:59)
[2019-03-06] MEDS: GABAPENTIN 400 MG CAPSULE. PO SCH ×2 (08:12→21:29)
[2019-03-06] MEDS: PANTOPRAZOLE 40 MG TABLET.DR. PO SCH (08:12)
[2019-03-06] MEDS: DOXYCYCLINE HYCLATE 100 MG in IV DEXTROSE 5% 100ML 100 ML IV SCH (08:13)
[2019-03-06] MEDS: ONDANSETRON PF 4 MG/2 ML VIAL. IVP PRN ×2 (08:16→22:36)
--- NOTE | 2019-03-06 09:18 | PDOC ---
Subjective: Subjective: Some nausea after eating - improved w/ meds. Denies pain. Loose stools - not unusual w/ h/o IBS - says takes dicyclomine and OTC diarrhea med at home. Feels better overall since admission. Ate scrambled eggs this morning. Objective: Objective: Reviewed other notes - CAP suspected re: abnormal chest imaging. Has Colestipol - she declined. Also has dicyclomine PRN. Vital Signs: Vital Signs Date Time Temp Pulse Resp B/P (MAP) Pulse Ox O2 Delivery O2 Flow Rate FiO2 03/06/19 08:25 Room Air 03/06/19 07:00 98.0 65 18 140/68 (92) 95 98.0 03/05/19 13:49 2 Imaging: Abd US IMPRESSION: 1. Hepatic steatosis. 2. Gallbladder is absent. No biliary ductal dilatation identified. CBD 5mm. 3. No hydronephrosis. CT C/A/P Impression: 1. Bilateral pulmonary masses are suspicious for primary lung cancer especially if the patient is a smoker. Atypical pneumonia including TB is possible. 2. Mild mediastinal lymphadenopathy. 3. Indeterminate lesions in the kidneys bilaterally could be cysts. The patient should have follow-up bilateral renal ultrasound as an outpatient. EGD non-erosive gastritis PE: GEN: NAD - walked from restroom to chair LUNGS: CTAB HEART: RRR ABD: S/ND/NT NEURO/PSYCH: A & O �3 A/P: Nausea - improved Loose stools - h/o IBS-D Elevated LFTs - resolving (checked 03/05), s/p juvenal, hepatic steatosis on im aging Non-erosive gastritis Abnormal chest imaging, UTI -- Monitor loose stools - can try Imodium and dicyclomine as she takes at home. Continue PPI. VICTORIA MAHER Mar 06, 2019 09:18
--- NOTE | 2019-03-06 09:32 | PDOC ---
Infectious Disease Note Subjective Subjective Feeling better N/V better but still occ No fevers last 24 hours + BM has some appetite ROS ROS o/w neg Vital Sign Vital Signs Vital Signs Date Time Temp Pulse Resp B/P (MAP) Pulse Ox O2 Delivery O2 Flow Rate FiO2 03/06/19 08:25 Room Air 03/06/19 07:00 98.0 65 18 140/68 (92) 95 98.0 03/05/19 13:49 2 Physical Exam PHYSICAL EXAM GENERAL: Looks much better. NAD, coop. in chair HEENT: Pupils equally round, normal conjunctivae. Oropharynx pink, moist. No lesions. NECK: Supple. LUNGS: Clear to auscultation. CHEST: Tender to palpation but less HEART: S1 and S2. ABDOMEN: Obese, soft. Improved right lower quadrant tenderness without rebound. Bowel sounds present. EXTREMITIES: No gross edema or cyanosis. SKIN: Warm to touch. No signs of rash. NEUROLOGIC: Alert answering simple questions appropriately.Moving all ext Labs Micro Impression: 1. Bilateral pulmonary masses are suspicious for primary lung cancer especially if the patient is a smoker. Atypical pneumonia including TB is possible. 2. Mild mediastinal lymphadenopathy. End Impression CT SCAN OF THE ABDOMEN WITH IV CONTRAST: Findings: Liver: Unremarkable Spleen: Unremarkable Pancreas: Unremarkable Adrenal Glands: Unremarkable Kidneys: Small hypoattenuating lesions in the kidneys bilaterally. There has been prior cholecystectomy. The common bile duct is mildly dilated however this is not unexpected in a postcholecystectomy patient. Evaluation of stomach and bowel is limited without oral contrast. There is no mass or lymphadenopathy. There is no free air. There is no free fluid. CT OF THE PELVIS WITH IV CONTRAST: There is no lymphadenopathy or free fluid. The bladder appears normal. There is no pericolonic inflammation. The appendix is not seen. Impression: Indeterminate lesions in the kidneys bilaterally could be cysts. The patient should have follow-up bilateral renal ultrasound as an outpatient Objective Assessment Sepsis, POA - Fever - better/lactic normal Leukocytosis - better Transaminitis -better Acute encephalopathy - better Acute abdominal pain - better Atypical CP - Ct reviewed ? masses/infiltrate Fibromyalgia h/o seizures h/o E. coli in urine 03/02 S/p EGD 03/05 - non erosive gastritis Plan Plan of Care Clinically looks better this am Discont Zosyn 03/02 and begin Augmentin anticipate use through 10/13 to complete at least 10 days for CAP D/c doxycycline 03/02 with ongoing nausea and dose Azithromycin po times one now for ongoing atypical coverage CT scan chest/abd/pelvis w/ IV contrast only - reviewed Pulmonary following Maintain hydration F/u labs and cults Maintain aspiration precautions D/w nursing VAN CHAVES MD Mar 06, 2019 09:32
--- NOTE | 2019-03-06 09:33 | PDOC ---
PULMONARY PROGRESS NOTES Subjective PT WEAK BUT NOT MORE SOA NO HEMOPTYSIS Vitals Vital Signs Date Time Temp Pulse Resp B/P (MAP) Pulse Ox O2 Delivery O2 Flow Rate FiO2 03/06/19 08:25 Room Air 03/06/19 07:00 98.0 65 18 140/68 (92) 95 98.0 03/05/19 13:49 2 ROS: No Nausea, No Chest Pain, No Abdominal Pain, No Increase Cough General: Alert, Oriented X4 Lungs: Clear Cardiovascular: S1, S2 Abdomen: Soft Neuro Exam: Alert, Oriented, Normal Speech Extremities: No Edema Skin: Warm Labs Laboratory Tests Test 03/05/19 05:00 03/05/19 05:10 Sodium Level 144 mmol/L (136-145) Potassium Level 3.4 mmol/L (3.5-5.1) Chloride Level 110 mmol/L (98-107) Carbon Dioxide Level 25 mmol/L (21-32) Anion Gap 9 (6-14) Blood Urea Nitrogen 11 mg/dL (7-20) Creatinine 0.9 mg/dL (0.6-1.0) Estimated GFR (Cockcroft-Gault) 63.0 BUN/Creatinine Ratio 12 (6-20) Glucose Level 96 mg/dL (70-99) Calcium Level 8.7 mg/dL (8.5-10.1) Total Bilirubin 0.6 mg/dL (0.2-1.0) Aspartate Amino Transf (AST/SGOT) 23 U/L (15-37) Alanine Aminotransferase (ALT/SGPT) 69 U/L (14-59) Alkaline Phosphatase 94 U/L (46-116) Total Protein 6.7 g/dL (6.4-8.2) Albumin 2.9 g/dL (3.4-5.0) Albumin/Globulin Ratio 0.8 (1.0-1.7) White Blood Count 8.8 x10^3/uL (4.0-11.0) Red Blood Count 3.85 x10^6/uL (3.50-5.40) Hemoglobin 11.2 g/dL (12.0-15.5) Hematocrit 32.8 % (36.0-47.0) Mean Corpuscular Volume 85 fL (79-100) Mean Corpuscular Hemoglobin 29 pg (25-35) Mean Corpuscular Hemoglobin Concent 34 g/dL (31-37) Red Cell Distribution Width 13.2 % (11.5-14.5) Platelet Count 241 x10^3/uL (140-400) Neutrophils (%) (Auto) 68 % (31-73) Lymphocytes (%) (Auto) 23 % (24-48) Monocytes (%) (Auto) 7 % (0-9) Eosinophils (%) (Auto) 2 % (0-3) Basophils (%) (Auto) 1 % (0-3) Neutrophils # (Auto) 6.0 x10^3/uL (1.8-7.7) Lymphocytes # (Auto) 2.0 x10^3/uL (1.0-4.8) Monocytes # (Auto) 0.6 x10^3/uL (0.0-1.1) Eosinophils # (Auto) 0.2 x10^3/uL (0.0-0.7) Basophils # (Auto) 0.1 x10^3/uL (0.0-0.2) Medications Active Scripts Medications Dose Route/Sig Max Daily Dose Days Date Category Dicyclomine Hcl 10 Mg Capsule 1 Cap PO BID PRN 11/27/18 Reported Imitrex (Sumatriptan Succinate) 100 Mg Tablet 1 Tab PO BID PRN 11/27/18 Reported Hydroxyzine Hcl 25 Mg Tablet 1 Tab PO DAILY PRN 11/27/18 Reported Diclofenac Sodium 75 Mg Tablet.dr 1 Tab PO BID 11/27/18 Reported Zolpidem Tartrate 10 Mg Tablet 10 Mg PO HS 11/27/18 Reported Lisinopril 10 Mg Tablet 1 Tab PO HS 06/14/18 Reported Gabapentin 800 Mg Tablet 1 Tab PO BID 06/17/14 Reported Cyclobenzaprine Hcl 10 Mg Tablet 1 Tab PO BID PRN 06/17/14 Reported Colestipol Hcl 1 Gm Tablet 1 Gm PO BID 06/17/14 Reported Tramadol Hcl 50 Mg Tablet 1 Tab PO BID 06/17/14 Reported Impression . 1. Abnormal CT chest with mass-like densities in the right upper lobe and left lower lobe. Likely inflammatory in nature as her CT chest from November did not reveal any lung masses. There were 1-2 mm tiny nodules, which have been stable when compared to previous CAT scans. 2. High-grade fever 3. Minimal history of tobacco use. 4. Abnormal liver function tests--- 5. Normal lipase. No chemical evidence to suggest pancreatitis. 6. Normal D-dimer of 0.4. 7. DARA-resolved 8. E-Coli UTI Plan . ANTIBX PER ID IMPROVING FOLLOW CULTURES REPEAT CT IN 6-8 WEEKS JOSE CARLOS ROACH MD Mar 06, 2019 09:33
[2019-03-06] MEDS ORDERED: AZITHROMYCIN 250 MG TABLET. PO ONE (10:00)
[2019-03-06] MEDS: AMOXICILLIN/K CLAV 875/125MG TABLET. PO SCH ×2 (11:01→21:29)
[2019-03-06 11:03] VITALS: BP 140/75
[2019-03-06] MEDS: LOPERAMIDE 2 MG CAPSULE PO PRN (11:04)
--- NOTE | 2019-03-06 12:11 | NUR ---
SS following up with discharge planning. PT/OT recommended retirement unit. SS met with pt to discuss retirement unit and discharge planning. Pt reported that she did not want to go to retirement unit and would feel more comfortable and safer returning to home. SS discussed home healthcare with pt and pt agreeable to home healthcare with no preference of company. SS will notify nurse navigator and will continue to follow for discharge planning.
[2019-03-06] MEDS ORDERED: PANT40TA77 PO (12:57)
[2019-03-06] MEDS ORDERED: ACET325T9 PO (12:57)
[2019-03-06] MEDS ORDERED: AMOX1TAB11 PO (12:57)
--- NOTE | 2019-03-06 13:00 | SNU/HH DC ---
DISCHARGE ORDERS DISCHARGE INFORMATION: DISCHARGE DATE: Mar 06, 2019 FINAL DIAGNOSIS Problems Medical Problems: (1) Chest pain Status: Acute CONDITION ON DISCHARGE: Stable CODE STATUS: Code Status: Full [facility]: SNF STAY <30 DAYS: Yes POST DISCHARGE ORDERS: ACTIVITY ORDERS: Activity as tolerated WEIGHT BEARING STATUS: As tolerated DIET AFTER DISCHARGE: Regular CHECKS AFTER DISCHARGE: CHECKS AFTER DISCHARGE: Check blood press - daily TREATMENT/EQUIPMENT ORDERS: ADAPTIVE EQUIPMENT NEEDED: None Physical Therapy For: Evalulation/Treatment Occupational Therapy For: Evaluation/Treatment DISCHARGE MEDICATIONS: Home Meds Active Scripts Acetaminophen (TYLENOL) 325 Mg Tablet, 650 MG PO PRN Q6HRS PRN for FEVER for 30 Days, #60 TAB Prov:SULEMAN BLACK MD 03/06/19 Pantoprazole Sodium (PANTOPRAZOLE SODIUM ) 40 Mg Tablet.dr, 40 MG PO DAILYAC for Gastritis for 30 Days, #30 TAB.SR Prov:SULEMAN BLACK MD 03/06/19 Amoxicillin/Potassium Clav (AMOX TR-K CLV 875-125 MG TAB) 1 Each Tablet, 1 TAB PO BID for UTI for 10 Days, #20 TAB Prov:SULEMAN BLACK MD 03/06/19 Reported Medications Dicyclomine Hcl (DICYCLOMINE HCL) 10 Mg Capsule, 1 CAP PO BID PRN for SEE COMMENTS, #90 CAP 11 Refills 11/27/18 Sumatriptan Succinate (IMITREX) 100 Mg Tablet, 1 TAB PO BID PRN for HEADACHE, #9 TAB 1 Refill 11/27/18 Hydroxyzine Hcl (HYDROXYZINE HCL) 25 Mg Tablet, 1 TAB PO DAILY PRN for ITCHING, #30 TAB 11/27/18 Diclofenac Sodium (DICLOFENAC SODIUM) 75 Mg Tablet.dr, 1 TAB PO BID for headaches, #60 TAB 1 Refill 11/27/18 Zolpidem Tartrate (ZOLPIDEM TARTRATE) 10 Mg Tablet, 10 MG PO HS for sleeping, TAB 0 Refills 11/27/18 Lisinopril (LISINOPRIL) 10 Mg Tablet, 1 TAB PO HS for hypertension, TAB 06/14/18 Gabapentin (GABAPENTIN) 800 Mg Tablet, 1 TAB PO BID for Nerve pain, TAB 06/17/14 Cyclobenzaprine Hcl (CYCLOBENZAPRINE HCL) 10 Mg Tablet, 1 TAB PO BID PRN for MUSCLE SPASMS, TAB 06/17/14 Colestipol Hcl (COLESTIPOL HCL) 1 Gm Tablet, 1 GM PO BID for Cholesterol 06/17/14 Tramadol Hcl (TRAMADOL HCL) 50 Mg Tablet, 1 TAB PO BID for Pain, TAB 06/17/14 Discontinued Scripts Atorvastatin Calcium (ATORVASTATIN CALCIUM) 10 Mg Tablet, 10 MG PO QHS for hld for 30 Days, #30 TAB Prov:ADOLPH KENNEY MD 11/28/18 SULEMAN BLACK MD Mar 06, 2019 13:00
--- NOTE | 2019-03-06 14:22 | DS ---
DATE OF DISCHARGE: 03/06/2019 ADMIT DIAGNOSIS: Sepsis. SECONDARY DIAGNOSES: 1. Urinary tract infection. 2. Lung mass versus pneumonia. 3. Elevated liver function tests. 4. History of ovarian cancer. 5. Tobacco abuse. 6. Coronary artery disease. 7. Fibromyalgia. 8. History of seizure disorder. 9. Osteoarthritis. HISTORY OF PRESENT ILLNESS AND HOSPITAL COURSE: This patient is a 63-year-old female who came to the hospital with very high fever and unable to care for herself. She had a UTI and sepsis was suspected. She also had a CAT scan showing pulmonary fullness consistent with tumor. CAT scan did not confirm this and was felt to be inflammatory changes, possible community-acquired pneumonia by Pulmonary Medicine. Infectious Disease was involved and started the patient on IV antibiotics. The patient was treated for several days and improved dramatically. She did have abdominal pain and had abdominal CAT scan as well as EGD revealing gastritis, but no significant changes or tumors were noted. The patient was back to baseline, but continued to have weakness and inability to care for herself; therefore, plans for discharge the patient to the long-term were made for alf. DISCHARGE MEDICATIONS: She was discharged on the following medications: Augmentin 875 p.o. b.i.d. for 10 days, pantoprazole 40 mg daily, Tylenol p.r.n. She will continue her ____ medications of colestipol 1 gram b.i.d. for diarrhea, Flexeril 10 mg q.12 hours p.r.n. for back pain, diclofenac 75 mg p.o. b.i.d. for back pain, dicyclomine 10 mg p.o. b.i.d. for IBS, gabapentin 800 mg p.o. b.i.d. for neuropathy pain, hydroxyzine 25 mg every day p.r.n. itching, lisinopril 10 mg daily for hypertension, Imitrex 100 mg p.o. b.i.d. p.r.n. migraine headaches, tramadol 50 mg p.o. b.i.d. for chronic back pain, zolpidem 10 mg p.o. at bedtime for insomnia. She will be followed at the alf for continued care. SULEMAN BLACK MD DR: NANCY/kenrick JOB#: [id number] / [id number]
[2019-03-06 15:00] VITALS: BP 140/66
[2019-03-06 19:25] VITALS: BP 130/78
[2019-03-06] MEDS: CYCLOBENZAPRINE 10 MG TABLET. PO PRN (21:29)
[2019-03-06] MEDS: LISINOPRIL 10 MG TABLET PO SCH (21:29)
[2019-03-06] MEDS: ZOLPIDEM 5 MG TABLET. PO SCH (21:30)
--- NOTE | 2019-03-06 21:30 | NUR ---
Patient said that she no longer takes Colestipol. Medication was non-administered.
[2019-03-06 23:40] VITALS: BP 124/66
[2019-03-07 03:00] VITALS: BP 103/69
[2019-03-07] MEDS: PANTOPRAZOLE 40 MG TABLET.DR. PO SCH (06:17)
[2019-03-07] MEDS: POTASSIUM CL 20MEQ D5-0.45NACL 1,000 ML IV SCH ×2 (06:25→16:02)
[2019-03-07 07:00] VITALS: BP 142/69
[2019-03-07] MEDS: traMADol 50 MG TABLET PO SCH ×2 (08:46→21:01)
[2019-03-07] MEDS: LACTOBACILLUS RHAMNOSUS GG 1 CAPSULE. PO SCH ×2 (08:46→21:00)
[2019-03-07] MEDS: AMOXICILLIN/K CLAV 875/125MG TABLET. PO SCH ×2 (08:46→21:01)
[2019-03-07] MEDS: GABAPENTIN 400 MG CAPSULE. PO SCH ×2 (08:46→21:00)
[2019-03-07] MEDS: SUMAtriptan SUCCINATE 100 MG TABLET PO PRN (08:48)
--- NOTE | 2019-03-07 09:35 | PDOC ---
PULMONARY PROGRESS NOTES Subjective PT WEAK BUT NOT MORE SOA NO HEMOPTYSIS Vitals Vital Signs Date Time Temp Pulse Resp B/P (MAP) Pulse Ox O2 Delivery O2 Flow Rate FiO2 03/07/19 08:46 94 Room Air 2.0 03/07/19 07:00 97.9 71 14 142/69 (93) 97.9 ROS: No Nausea, No Chest Pain, No Abdominal Pain, No Increase Cough General: Alert, Oriented X4 Lungs: Clear Cardiovascular: S1, S2 Abdomen: Soft Neuro Exam: Alert, Oriented, Normal Speech Extremities: No Edema Skin: Warm Medications Active Scripts Medications Dose Route/Sig Max Daily Dose Days Date Category Dicyclomine Hcl 10 Mg Capsule 1 Cap PO BID PRN 11/27/18 Reported Imitrex (Sumatriptan Succinate) 100 Mg Tablet 1 Tab PO BID PRN 11/27/18 Reported Hydroxyzine Hcl 25 Mg Tablet 1 Tab PO DAILY PRN 11/27/18 Reported Diclofenac Sodium 75 Mg Tablet.dr 1 Tab PO BID 11/27/18 Reported Zolpidem Tartrate 10 Mg Tablet 10 Mg PO HS 11/27/18 Reported Lisinopril 10 Mg Tablet 1 Tab PO HS 06/14/18 Reported Gabapentin 800 Mg Tablet 1 Tab PO BID 06/17/14 Reported Cyclobenzaprine Hcl 10 Mg Tablet 1 Tab PO BID PRN 06/17/14 Reported Colestipol Hcl 1 Gm Tablet 1 Gm PO BID 06/17/14 Reported Tramadol Hcl 50 Mg Tablet 1 Tab PO BID 06/17/14 Reported Impression . 1. Abnormal CT chest with mass-like densities in the right upper lobe and left lower lobe. Likely inflammatory in nature as her CT chest from November did not reveal any lung masses. There were 1-2 mm tiny nodules, which have been stable when compared to previous CAT scans. 2. High-grade fever 3. Minimal history of tobacco use. 4. Abnormal liver function tests--- 5. Normal lipase. No chemical evidence to suggest pancreatitis. 6. Normal D-dimer of 0.4. 7. DARA-resolved 8. E-Coli UTI Plan . TRANSFER TODAY FOLLOW UP IN APR WITH REPEAT CT GAVE APPT TO DAUGHTER JOSE CARLOS ROCAH MD Mar 07, 2019 09:35
[2019-03-07] MEDS: COLESTIPOL HCL 1 GM TABLET PO SCH (10:00)
[2019-03-07 11:00] VITALS: BP 132/68
--- NOTE | 2019-03-07 11:30 | PDOC ---
Infectious Disease Note Subjective Subjective Feeling better N/V better but still occ CAMPOS gone with caffeine No fevers last 24 hours + BM has some appetite Occ chest discomfort with deep breath Vital Sign Vital Signs Vital Signs Date Time Temp Pulse Resp B/P (MAP) Pulse Ox O2 Delivery O2 Flow Rate FiO2 03/07/19 10:39 94 Room Air 2.0 03/07/19 07:00 97.9 71 14 142/69 (93) 97.9 Physical Exam PHYSICAL EXAM GENERAL: Looks much better. NAD, coop. working with PT in hallway HEENT: Pupils equally round, normal conjunctivae. Oropharynx pink, moist. No lesions. NECK: Supple. LUNGS: Clear to auscultation. CHEST: Tender to palpation but less HEART: S1 and S2. ABDOMEN: Obese, soft. Improved right lower quadrant tenderness without rebound. Bowel sounds present. EXTREMITIES: No gross edema or cyanosis. SKIN: Warm to touch. No signs of rash. NEUROLOGIC: Alert answering simple questions appropriately.Moving all ext Labs Micro Impression: 1. Bilateral pulmonary masses are suspicious for primary lung cancer especially if the patient is a smoker. Atypical pneumonia including TB is possible. 2. Mild mediastinal lymphadenopathy. End Impression CT SCAN OF THE ABDOMEN WITH IV CONTRAST: Findings: Liver: Unremarkable Spleen: Unremarkable Pancreas: Unremarkable Adrenal Glands: Unremarkable Kidneys: Small hypoattenuating lesions in the kidneys bilaterally. There has been prior cholecystectomy. The common bile duct is mildly dilated however this is not unexpected in a postcholecystectomy patient. Evaluation of stomach and bowel is limited without oral contrast. There is no mass or lymphadenopathy. There is no free air. There is no free fluid. CT OF THE PELVIS WITH IV CONTRAST: There is no lymphadenopathy or free fluid. The bladder appears normal. There is no pericolonic inflammation. The appendix is not seen. Impression: Indeterminate lesions in the kidneys bilaterally could be cysts. The patient should have follow-up bilateral renal ultrasound as an outpatient Objective Assessment Sepsis, POA - Fever - better/lactic normal Leukocytosis - better Transaminitis -better Acute encephalopathy - better Acute abdominal pain - better Atypical CP - Ct reviewed ? masses/infiltrate Fibromyalgia h/o seizures h/o E. coli in urine 03/02 S/p EGD 03/05 - non erosive gastritis Plan Plan of Care Clinically looks better this am Discont Zosyn 03/02 and began Augmentin 03/06 anticipate use through 03/11 to complete at least 10 days for CAP D/c doxycycline 03/02 with ongoing nausea and dose Azithromycin po times one again today for ongoing atypical coverage CT scan chest/abd/pelvis w/ IV contrast only - reviewed Pulmonary following Maintain hydration F/u labs and cults Maintain aspiration precautions D/w nursing VAN CHAVES MD Mar 07, 2019 11:30
[2019-03-07] MEDS ORDERED: AZITHROMYCIN 250 MG TABLET. PO ONE (11:45)
--- NOTE | 2019-03-07 12:25 | PDOC ---
PROGRESS NOTES Subjective Subjective Patient feeling better d/c held up awaiting insurance approval for SNU. Objective Objective Vital Signs Date Time Temp Pulse Resp B/P (MAP) Pulse Ox O2 Delivery O2 Flow Rate FiO2 03/07/19 10:39 94 Room Air 2.0 03/07/19 07:00 97.9 71 14 142/69 (93) 97.9 Intake and Output 03/07/19 07:00 Intake Total 1880 ml Balance 1880 ml Intake Oral 780 ml IV Total 1100 ml # Voids 7 # Bowel Movements 2 Physical Exam Abdomen: Normal bowel sounds Heart: Regular rate Extremities: No edema General: Alert Lungs: Clear to auscultation Assessment Assessment Problems Medical Problems: (1) Chest pain Status: Acute Sepsis Suspect CAP nausea, vomiting, abdominal pain UTI-Ecoli tobacco use hx CAD fibromyalgia hx of seizure disorder OA Plan Plan of Care To SNU see D/C summary Comment Review of Relevant I have reviewed the following items tori (where applicable) has been applied. Labs Microbiology 03/03/19 Urine Culture - Final, Complete 03/03/19 Urine Culture Result 1 (REUBEN) - Final, Complete 03/02/19 Blood Culture - Final, Complete NO GROWTH AFTER 5 DAYS Medications Current Medications Aspirin (Children'S Aspirin) 324 mg 1X ONCE PO Last administered on 03/02/19at 10:27; Start 03/02/19 at 10:00; Stop 03/02/19 at 10:01; Status DC Sodium Chloride 500 ml @ 500 mls/hr 1X ONCE IV Last administered on 03/02/19at 10:25; Start 03/02/19 at 10:00; Stop 03/02/19 at 10:59; Status DC Ondansetron HCl (Zofran) 4 mg 1X ONCE IV Last administered on 03/02/19at 10:28; Start 03/02/19 at 10:00; Stop 03/02/19 at 10:01; Status DC Morphine Sulfate (Morphine Sulfate) 2 mg 1X ONCE IV Last administered on 03/02/19at 11:09; Start 03/02/19 at 11:00; Stop 03/02/19 at 11:03; Status DC Ondansetron HCl (Zofran) 4 mg PRN Q8HRS PRN IV NAUSEA/VOMITING Last administered on 03/03/19at 01:20; Start 03/02/19 at 12:15; Stop 03/03/19 at 08:36; Status DC Morphine Sulfate (Morphine Sulfate) 2 mg PRN Q2HR PRN IV PAIN Last administered on 03/03/19 01:19; Start 03/02/19 at 12:15; Stop 03/03/19 at 12:14; Status DC Sodium Chloride 1,000 ml @ 100 mls/hr Q10H IV Last administered on 03/03/19 00:27; Start 03/02/19 at 12:01; Stop 03/03/19 at 12:00; Status DC Acetaminophen (Tylenol) 650 mg PRN Q6HRS PRN PO FEVER Last administered on 03/06/19 05:27; Start 03/02/19 at 15:00 Colestipol HCl (Colestid) 1 gm BID@1000,2200 PO Last administered on 03/05/19 09:22; Start 03/02/19 at 22:00 Cyclobenzaprine HCl (Flexeril) 10 mg BID PRN PO MUSCLE SPASMS Last administered on 03/06/19 21:29; Start 03/02/19 at 16:45 Dicyclomine HCl (Bentyl) 10 mg BID PRN PO STOMACH PAIN/CRAMPING Last administered on 03/04/19 22:05; Start 03/02/19 at 16:45; Stop 03/06/19 at 09:20; Status DC Hydroxyzine HCl (Atarax) 25 mg DAILY PRN PO ITCHING; Start 03/02/19 at 16:45 Lisinopril (Prinivil) 10 mg HS PO Last administered on 03/06/19 21:29; Start 03/02/19 at 21:00 Sumatriptan Succinate (Imitrex) 100 mg BID PRN PO MIGRAINE HEADACHE Last administered on 03/07/19 08:48; Start 03/02/19 at 16:45 Tramadol HCl (Ultram) 50 mg BID PO Last administered on 03/07/19 08:46; Start 03/02/19 at 21:00 Gabapentin (Neurontin) 800 mg BID PO Last administered on 03/07/19 08:46; Start 03/02/19 at 21:00 Zolpidem Tartrate (Ambien) 5 mg QHS PO Last administered on 10/8/19at 21:30; Start 03/02/19 at 21:00 Doxycycline Hyclate 100 mg/ Dextrose 100 ml @ 50 mls/hr Q12HR IV Last administered on 03/06/19at 08:13; Start 03/02/19 at 21:00; Stop 03/06/19 at 09:50; Status DC Piperacillin Sod/ Tazobactam Sod 3.375 gm/Sodium Chloride 50 ml @ 100 mls/hr Q6 HRS IV Last administered on 03/06/19at 05:26; Start 03/02/19 at 18:00; Stop 03/06/19 at 09:50; Status DC Vancomycin HCl (Vanco Per Pharmacy) 1 each PRN DAILY PRN MC SEE COMMENTS; Start 03/02/19 at 17:45; Status Cancel Micafungin Sodium 100 mg/Dextrose 100 ml @ 100 mls/hr Q24H IV Last administered on 03/04/19at 22:11; Start 03/02/19 at 18:00; Stop 03/05/19 at 12:02; Status DC Vancomycin HCl 2 gm/Sodium Chloride 500 ml @ 250 mls/hr 1X ONCE IV ; Start 03/02/19 at 19:00; Stop 03/02/19 at 20:59; Status Cancel Daptomycin 480 mg/ Sodium Chloride 50 ml @ 100 mls/hr Q24H IV Last administered on 03/03/19at 20:17; Start 03/02/19 at 18:00; Stop 03/04/19 at 13:35; Status DC Iohexol (Omnipaque 300 Mg/ml) 75 ml 1X ONCE IV Last administered on 03/02/19at 18:21; Start 03/02/19 at 18:00; Stop 03/02/19 at 18:02; Status DC Info (CONTRAST GIVEN -- Rx MONITORING) 1 each PRN DAILY PRN MC SEE COMMENTS; Start 03/02/19 at 18:15; Stop 03/04/19 at 18:14; Status DC Ondansetron HCl (Zofran) 8 mg PRN Q6HRS PRN IVP NAUSEA/VOMITING, 1st CHOICE Last administered on 03/06/19at 22:36; Start 03/03/19 at 08:45 Metoclopramide HCl (Reglan Vial) 10 mg PRN Q6HRS PRN IVP NAUSEA/VOMITING, 2nd CHOICE Last administered on 03/04/19at 06:05; Start 03/03/19 at 12:00 Promethazine HCl (Phenergan Supp) 25 mg PRN Q6HRS PRN AL NAUSEA/VOMITING Last administered on 03/03/19at 16:27; Start 03/03/19 at 12:00 Prochlorperazine Edisylate (Compazine) 10 mg PRN Q6HRS PRN IM NAUSEA/VOMITING Last administered on 03/04/19at 08:24; Start 03/03/19 at 12:00 Sodium Chloride (Normal Saline Flush) 3 ml QSHIFT PRN IV AFTER MEDS AND BLOOD DRAWS; Start 03/03/19 at 12:15 Potassium Chloride/Dextrose/ Sod Cl 1,000 ml @ 100 mls/hr Q10H IV Last administered on 03/07/19at 06:25; Start 03/03/19 at 12:02 Lactobacillus Rhamnosus (Culturelle) 1 cap BID PO Last administered on 03/07/19at 08:46; Start 03/03/19 at 21:00 Pantoprazole Sodium (PROTONIX VIAL for IV PUSH) 40 mg BIDAC IVP Last administered on 03/05/19at 05:55; Start 03/03/19 at 16:30; Stop 03/05/19 at 14:01; Status DC Prochlorperazine Edisylate (Compazine) 10 mg PRN Q6HRS PRN IV NAUSEA/VOMITING, 3RD CHOICE Last administered on 03/04/19at 17:56; Start 03/04/19 at 11:30 Midazolam HCl (Versed) 2 mg PRN 1X PRN IV PRIOR TO PROCEDURE; Start 03/05/19 at 10:45; Stop 03/06/19 at 10:44; Status DC Fentanyl Citrate (Fentanyl 2ml Vial) 25 mcg PRN Q5MIN PRN IV X 2 DOSES FOR PAIN; Start 03/05/19 at 10:45; Stop 03/06/19 at 10:44; Status DC Fentanyl Citrate (Fentanyl 2ml Vial) 50 mcg PRN Q5MIN PRN IV X 2 DOSES FOR PAIN; Start 03/05/19 at 10:45; Stop 03/06/19 at 10:44; Status DC Ringer's Solution 1,000 ml @ 125 mls/hr Q8H IV ; Start 03/05/19 at 10:40; Stop 03/05/19 at 22:39; Status DC Lidocaine HCl (Xylocaine-Mpf 1% 2ml Vial) 2 ml 1X PRN PRN ID IV START; Start 03/05/19 at 10:45; Stop 03/06/19 at 10:44; Status DC Propofol 20 ml @ As Directed STK-MED ONCE IV ; Start 03/05/19 at 13:36; Stop 03/05/19 at 13:36; Status DC Lidocaine HCl (Lidocaine Pf 2% Vial) 5 ml STK-MED ONCE .ROUTE ; Start 03/05/19 at 13:36; Stop 03/05/19 at 13:36; Status DC Pantoprazole Sodium (Protonix) 40 mg DAILYAC PO Last administered on 03/07/19at 06:17; Start 03/06/19 at 07:30 Dicyclomine HCl (Bentyl) 10 mg QID PRN PO STOMACH PAIN/CRAMPING/DIARRHEA; Start 03/06/19 at 09:30 Loperamide HCl (Imodium) 2 mg BID PRN PO DIARRHEA Last administered on 03/06/19at 11:04; Start 03/06/19 at 09:30 Amoxicillin/ Clavulanate Potassium (Augmentin 875/ 125mg) 1 tab BID PO Last administered on 03/07/19at 08:46; Start 03/06/19 at 10:00 Azithromycin (Zithromax) 500 mg 1X ONCE PO Last administered on 03/06/19at 11:01; Start 03/06/19 at 10:00; Stop 03/06/19 at 10:01; Status DC Azithromycin (Zithromax) 500 mg 1X ONCE PO ; Start 03/07/19 at 11:45; Stop 03/07/19 at 11:47; Status DC Active Scripts Active Tylenol (Acetaminophen) 325 Mg Tablet 650 Mg PO PRN Q6HRS PRN 30 Days Pantoprazole Sodium (Pantoprazole Sodium) 40 Mg Tablet.dr 40 Mg PO DAILYAC 30 Days Amox Tr-K Clv 875-125 Mg Tab (Amoxicillin/Potassium Clav) 1 Each Tablet 1 Tab PO BID 10 Days Reported Dicyclomine Hcl 10 Mg Capsule 1 Cap PO BID PRN Imitrex (Sumatriptan Succinate) 100 Mg Tablet 1 Tab PO BID PRN Hydroxyzine Hcl 25 Mg Tablet 1 Tab PO DAILY PRN Diclofenac Sodium 75 Mg Tablet.dr 1 Tab PO BID Zolpidem Tartrate 10 Mg Tablet 10 Mg PO HS Lisinopril 10 Mg Tablet 1 Tab PO HS Gabapentin 800 Mg Tablet 1 Tab PO BID Cyclobenzaprine Hcl 10 Mg Tablet 1 Tab PO BID PRN Colestipol Hcl 1 Gm Tablet 1 Gm PO BID Tramadol Hcl 50 Mg Tablet 1 Tab PO BID Vitals/I & O Vital Sign - Last 24 Hours 03/06/19 03/06/19 03/06/19 03/06/19 15:00 18:28 19:25 19:28 Temp 98.4 99.0 98.4 99.0 Pulse 76 81 Resp 16 18 B/P (MAP) 140/66 (90) 130/78 (95) Pulse Ox 98 98 93 O2 Delivery Room Air Room Air Room Air Room Air O2 Flow Rate 2.0 03/06/19 03/06/19 03/06/19 03/06/19 19:45 21:25 21:29 23:40 Temp 98.6 98.8 98.6 98.8 Pulse 81 71 Resp 18 B/P (MAP) 130/78 124/66 (85) Pulse Ox 93 O2 Delivery Room Air Room Air 03/07/19 03/07/19 03/07/19 03/07/19 03:00 07:00 08:00 08:46 Temp 98.4 97.9 98.4 97.9 Pulse 68 71 Resp 18 14 B/P (MAP) 103/69 (80) 142/69 (93) Pulse Ox 91 94 94 O2 Delivery Room Air Room Air Room Air Room Air O2 Flow Rate 2.0 03/07/19 10:39 Pulse Ox 94 O2 Delivery Room Air O2 Flow Rate 2.0 Intake and Output 03/06/19 03/06/19 03/07/19 15:00 23:00 07:00 Intake Total 1220 ml 120 ml 540 ml Balance 1220 ml 120 ml 540 ml SULEMAN BLACK MD Mar 07, 2019 12:25
--- NOTE | 2019-03-07 12:41 | PDOC ---
Subjective: Subjective: Eating swazi fries and fried chicken strips. Says food is sitting in e pigastrium. Loose stools - possibly related to atbx. Says she might Dc to rehab today or tomorrow. Objective: Vital Signs: Vital Signs Date Time Temp Pulse Resp B/P (MAP) Pulse Ox O2 Delivery O2 Flow Rate FiO2 03/07/19 10:39 94 Room Air 2.0 03/07/19 07:00 97.9 71 14 142/69 (93) 97.9 PE: GEN: NAD - up to chair - looks better today LUNGS: CTAB HEART: RRR ABD: NABS, S/ND, vague tenderness epigastrium NEURO/PSYCH: A & O �3 A/P: Nausea - improved -- Tolerating fried foods. DC per primary on PPI, continue treatment for IBS-D - can check stool studies if indicated. DC per primary. VICTORIA MAHER Mar 07, 2019 12:41
--- NOTE | 2019-03-07 13:48 | NUR ---
SS following up with discharge planning. Discharge orders received for [facility]. [facility] has not provided acceptance decision at this time. SS discussed with pt. Pt agreeable to [facility], ; fax [phone]. SS phoned and faxed referral and discharge orders to [facility]. SS will await acceptance decision and will proceed accordingly with discharge planning.
[2019-03-07 15:00] VITALS: BP 141/79
[2019-03-07 19:00] VITALS: BP 142/79
[2019-03-07] MEDS: ZOLPIDEM 5 MG TABLET. PO SCH (21:00)
[2019-03-07] MEDS: LISINOPRIL 10 MG TABLET PO SCH (21:00)
[2019-03-07] MEDS: CYCLOBENZAPRINE 10 MG TABLET. PO PRN (21:07)
[2019-03-07 23:00] VITALS: BP 144/71
[2019-03-07] MEDS: DICYCLOMINE HCL 10 MG CAPSULE PO PRN (23:04)
[2019-03-08] MEDS: ACETAMINOPHEN 325 MG TABLET. PO PRN (00:05)
[2019-03-08] MEDS: SUMAtriptan SUCCINATE 100 MG TABLET PO PRN (00:05)
[2019-03-08] MEDS: POTASSIUM CL 20MEQ D5-0.45NACL 1,000 ML IV SCH ×2 (02:49→12:02)
[2019-03-08 03:00] VITALS: BP 141/72
[2019-03-08] MEDS: PANTOPRAZOLE 40 MG TABLET.DR. PO SCH (06:25)
[2019-03-08 07:00] VITALS: BP 132/61
[2019-03-08 07:40] LABS: CALCIUM 9.6 mg/dL (8.5-10.1); CREATININE 0.9 mg/dL (0.6-1.0); POTASSIUM 3.9 mmol/L (3.5-5.1)
[2019-03-08] MEDS: LACTOBACILLUS RHAMNOSUS GG 1 CAPSULE. PO SCH ×2 (09:11→21:22)
[2019-03-08] MEDS: AMOXICILLIN/K CLAV 875/125MG TABLET. PO SCH ×2 (09:11→21:23)
[2019-03-08] MEDS: traMADol 50 MG TABLET PO SCH ×2 (09:11→21:22)
[2019-03-08] MEDS: GABAPENTIN 400 MG CAPSULE. PO SCH ×2 (09:11→21:22)
--- NOTE | 2019-03-08 09:24 | PDOC ---
PULMONARY PROGRESS NOTES Subjective PT WEAK BUT NOT MORE SOA NO HEMOPTYSIS Vitals Vital Signs Date Time Temp Pulse Resp B/P (MAP) Pulse Ox O2 Delivery O2 Flow Rate FiO2 03/08/19 09:11 16 Room Air 03/08/19 07:00 98.0 71 132/61 (84) 92 98.0 03/07/19 10:39 2.0 ROS: No Nausea, No Chest Pain, No Abdominal Pain, No Increase Cough General: Alert, Oriented X4 Lungs: Clear Cardiovascular: S1, S2 Abdomen: Soft Neuro Exam: Alert, Oriented, Normal Speech Extremities: No Edema Skin: Warm Labs Laboratory Tests Test 03/08/19 07:16 Sodium Level 143 mmol/L (136-145) Potassium Level 3.9 mmol/L (3.5-5.1) Chloride Level 107 mmol/L (98-107) Carbon Dioxide Level 25 mmol/L (21-32) Anion Gap 11 (6-14) Blood Urea Nitrogen 8 mg/dL (7-20) Creatinine 0.9 mg/dL (0.6-1.0) Estimated GFR (Cockcroft-Gault) 63.0 Glucose Level 123 mg/dL (70-99) Calcium Level 9.6 mg/dL (8.5-10.1) Laboratory Tests Test 03/08/19 07:16 Sodium Level 143 mmol/L (136-145) Potassium Level 3.9 mmol/L (3.5-5.1) Chloride Level 107 mmol/L (98-107) Carbon Dioxide Level 25 mmol/L (21-32) Anion Gap 11 (6-14) Blood Urea Nitrogen 8 mg/dL (7-20) Creatinine 0.9 mg/dL (0.6-1.0) Estimated GFR (Cockcroft-Gault) 63.0 Glucose Level 123 mg/dL (70-99) Calcium Level 9.6 mg/dL (8.5-10.1) Medications Active Scripts Medications Dose Route/Sig Max Daily Dose Days Date Category Dicyclomine Hcl 10 Mg Capsule 1 Cap PO BID PRN 11/27/18 Reported Imitrex (Sumatriptan Succinate) 100 Mg Tablet 1 Tab PO BID PRN 11/27/18 Reported Hydroxyzine Hcl 25 Mg Tablet 1 Tab PO DAILY PRN 11/27/18 Reported Diclofenac Sodium 75 Mg Tablet.dr 1 Tab PO BID 11/27/18 Reported Zolpidem Tartrate 10 Mg Tablet 10 Mg PO HS 11/27/18 Reported Lisinopril 10 Mg Tablet 1 Tab PO HS 06/14/18 Reported Gabapentin 800 Mg Tablet 1 Tab PO BID 06/17/14 Reported Cyclobenzaprine Hcl 10 Mg Tablet 1 Tab PO BID PRN 06/17/14 Reported Colestipol Hcl 1 Gm Tablet 1 Gm PO BID 06/17/14 Reported Tramadol Hcl 50 Mg Tablet 1 Tab PO BID 06/17/14 Reported Impression . 1. Abnormal CT chest with mass-like densities in the right upper lobe and left lower lobe. Likely inflammatory in nature as her CT chest from November did not reveal any lung masses. There were 1-2 mm tiny nodules, which have been stable when compared to previous CAT scans. 2. High-grade fever 3. Minimal history of tobacco use. 4. Abnormal liver function tests--- 5. Normal lipase. No chemical evidence to suggest pancreatitis. 6. Normal D-dimer of 0.4. 7. DARA-resolved 8. E-Coli UTI Plan . TRANSFER TODAY FOLLOW UP IN APR WITH REPEAT CT GAVE APPT TO DAUGHTER JOSE CARLOS ROACH MD Mar 08, 2019 09:24
--- NOTE | 2019-03-08 10:43 | PDOC ---
Infectious Disease Note Subjective Subjective Feeling better N/V better but still occ CAMPOS gone with caffeine No fevers last 24 hours + BM has some appetite Occ chest discomfort with deep breath Vital Sign Vital Signs Vital Signs Date Time Temp Pulse Resp B/P (MAP) Pulse Ox O2 Delivery O2 Flow Rate FiO2 03/08/19 10:34 16 Room Air 03/08/19 07:00 98.0 71 132/61 (84) 92 98.0 03/07/19 10:39 2.0 Physical Exam PHYSICAL EXAM GENERAL: Looks much better. NAD, coop in bed HEENT: Pupils equally round, normal conjunctivae. Oropharynx pink, moist. No lesions. NECK: Supple. LUNGS: Clear to auscultation. CHEST: Tender to palpation but improving HEART: S1 and S2. ABDOMEN: Obese, soft. Improved right lower quadrant tenderness without rebound. Bowel sounds present. EXTREMITIES: No gross edema or cyanosis. SKIN: Warm to touch. No signs of rash. NEUROLOGIC: Alert answering simple questions appropriately.Moving all ext Labs Lab Laboratory Tests Test 03/08/19 07:16 Sodium Level 143 mmol/L (136-145) Potassium Level 3.9 mmol/L (3.5-5.1) Chloride Level 107 mmol/L (98-107) Carbon Dioxide Level 25 mmol/L (21-32) Anion Gap 11 (6-14) Blood Urea Nitrogen 8 mg/dL (7-20) Creatinine 0.9 mg/dL (0.6-1.0) Estimated GFR (Cockcroft-Gault) 63.0 Glucose Level 123 mg/dL (70-99) Calcium Level 9.6 mg/dL (8.5-10.1) Micro Impression: 1. Bilateral pulmonary masses are suspicious for primary lung cancer especially if the patient is a smoker. Atypical pneumonia including TB is possible. 2. Mild mediastinal lymphadenopathy. End Impression CT SCAN OF THE ABDOMEN WITH IV CONTRAST: Findings: Liver: Unremarkable Spleen: Unremarkable Pancreas: Unremarkable Adrenal Glands: Unremarkable Kidneys: Small hypoattenuating lesions in the kidneys bilaterally. There has been prior cholecystectomy. The common bile duct is mildly dilated however this is not unexpected in a postcholecystectomy patient. Evaluation of stomach and bowel is limited without oral contrast. There is no mass or lymphadenopathy. There is no free air. There is no free fluid. CT OF THE PELVIS WITH IV CONTRAST: There is no lymphadenopathy or free fluid. The bladder appears normal. There is no pericolonic inflammation. The appendix is not seen. Impression: Indeterminate lesions in the kidneys bilaterally could be cysts. The patient should have follow-up bilateral renal ultrasound as an outpatient Objective Assessment Sepsis, POA - Fever - better/lactic normal Leukocytosis - better Transaminitis -better Acute encephalopathy - better Acute abdominal pain - better Atypical CP - Ct reviewed ? masses/infiltrate Fibromyalgia h/o seizures h/o E. coli in urine 03/02 S/p EGD 03/05 - non erosive gastritis Plan Plan of Care Clinically looks better this am Discont Zosyn 03/02 and began Augmentin 03/06 anticipate use through 03/11 to complete at least 10 days for CAP D/c'd doxycycline 03/02 with ongoing nausea and dosed Azithromycin po times one again today for ongoing atypical coverage to complete 3 days will not need any more after today D/w daughter D/w nursing ID to sign off VAN CHAVES MD Mar 08, 2019 10:43
[2019-03-08 11:00] VITALS: BP 138/68
--- NOTE | 2019-03-08 11:01 | PDOC ---
G I PROGRESS NOTE Reason for Follow-up Abd pain Subjective Tolerating po Physical Exam Lungs clear CV S1 S2 ABD +B, soft, nontende Review of Relevant I have reviewed the following items tori (where applicable) has been applied. Labs Laboratory Tests Test 03/08/19 07:16 Sodium Level 143 mmol/L (136-145) Potassium Level 3.9 mmol/L (3.5-5.1) Chloride Level 107 mmol/L (98-107) Carbon Dioxide Level 25 mmol/L (21-32) Anion Gap 11 (6-14) Blood Urea Nitrogen 8 mg/dL (7-20) Creatinine 0.9 mg/dL (0.6-1.0) Estimated GFR (Cockcroft-Gault) 63.0 Glucose Level 123 mg/dL (70-99) Calcium Level 9.6 mg/dL (8.5-10.1) Laboratory Tests Test 03/08/19 07:16 Sodium Level 143 mmol/L (136-145) Potassium Level 3.9 mmol/L (3.5-5.1) Chloride Level 107 mmol/L (98-107) Carbon Dioxide Level 25 mmol/L (21-32) Anion Gap 11 (6-14) Blood Urea Nitrogen 8 mg/dL (7-20) Creatinine 0.9 mg/dL (0.6-1.0) Estimated GFR (Cockcroft-Gault) 63.0 Glucose Level 123 mg/dL (70-99) Calcium Level 9.6 mg/dL (8.5-10.1) Microbiology 03/03/19 Urine Culture - Final, Complete 03/03/19 Urine Culture Result 1 (REUBEN) - Final, Complete 03/02/19 Blood Culture - Final, Complete NO GROWTH AFTER 5 DAYS Medications Current Medications Aspirin (Children'S Aspirin) 324 mg 1X ONCE PO Last administered on 03/02/19at 10:27; Start 03/02/19 at 10:00; Stop 03/02/19 at 10:01; Status DC Sodium Chloride 500 ml @ 500 mls/hr 1X ONCE IV Last administered on 03/02/19at 10:25; Start 03/02/19 at 10:00; Stop 03/02/19 at 10:59; Status DC Ondansetron HCl (Zofran) 4 mg 1X ONCE IV Last administered on 03/02/19at 10:28; Start 03/02/19 at 10:00; Stop 03/02/19 at 10:01; Status DC Morphine Sulfate (Morphine Sulfate) 2 mg 1X ONCE IV Last administered on 03/02/19at 11:09; Start 03/02/19 at 11:00; Stop 03/02/19 at 11:03; Status DC Ondansetron HCl (Zofran) 4 mg PRN Q8HRS PRN IV NAUSEA/VOMITING Last administered on 03/03/19at 01:20; Start 03/02/19 at 12:15; Stop 03/03/19 at 08:36; Status DC Morphine Sulfate (Morphine Sulfate) 2 mg PRN Q2HR PRN IV PAIN Last administered on 03/03/19at 01:19; Start 03/02/19 at 12:15; Stop 03/03/19 at 12:14; Status DC Sodium Chloride 1,000 ml @ 100 mls/hr Q10H IV Last administered on 03/03/19at 00:27; Start 03/02/19 at 12:01; Stop 03/03/19 at 12:00; Status DC Acetaminophen (Tylenol) 650 mg PRN Q6HRS PRN PO FEVER Last administered on 03/08/19at 00:05; Start 03/02/19 at 15:00 Colestipol HCl (Colestid) 1 gm BID@1000,2200 PO Last administered on 03/05/19 09:22; Start 03/02/19 at 22:00; Stop 03/07/19 at 16:27; Status DC Cyclobenzaprine HCl (Flexeril) 10 mg BID PRN PO MUSCLE SPASMS Last administered on 03/07/19at 21:07; Start 03/02/19 at 16:45 Dicyclomine HCl (Bentyl) 10 mg BID PRN PO STOMACH PAIN/CRAMPING Last administered on 03/04/19 22:05; Start 03/02/19 at 16:45; Stop 03/06/19 at 09:20; Status DC Hydroxyzine HCl (Atarax) 25 mg DAILY PRN PO ITCHING; Start 03/02/19 at 16:45 Lisinopril (Prinivil) 10 mg HS PO Last administered on 03/07/19at 21:00; Start 03/02/19 at 21:00 Sumatriptan Succinate (Imitrex) 100 mg BID PRN PO MIGRAINE HEADACHE Last administered on 03/08/19 00:05; Start 03/02/19 at 16:45 Tramadol HCl (Ultram) 50 mg BID PO Last administered on 03/08/19 09:11; Start 03/02/19 at 21:00 Gabapentin (Neurontin) 800 mg BID PO Last administered on 03/08/19 09:11; Start 03/02/19 at 21:00 Zolpidem Tartrate (Ambien) 5 mg QHS PO Last administered on 03/07/19 21:00; Start 03/02/19 at 21:00 Doxycycline Hyclate 100 mg/ Dextrose 100 ml @ 50 mls/hr Q12HR IV Last administered on 03/06/19at 08:13; Start 03/02/19 at 21:00; Stop 03/06/19 at 09:50; Status DC Piperacillin Sod/ Tazobactam Sod 3.375 gm/Sodium Chloride 50 ml @ 100 mls/hr Q6HRS IV Last administered on 03/06/19 05:26; Start 03/02/19 at 18:00; Stop 03/06/19 at 09:50; Status DC Vancomycin HCl (Vanco Per Pharmacy) 1 each PRN DAILY PRN MC SEE COMMENTS; Start 03/02/19 at 17:45; Status Cancel Micafungin Sodium 100 mg/Dextrose 100 ml @ 100 mls/hr Q24H IV Last administered on 03/04/19at 22:11; Start 03/02/19 at 18:00; Stop 03/05/19 at 12:02; Status DC Vancomycin HCl 2 gm/Sodium Chloride 500 ml @ 250 mls/hr 1X ONCE IV ; Start 03/02/19 at 19:00; Stop 03/02/19 at 20:59; Status Cancel Daptomycin 480 mg/ Sodium Chloride 50 ml @ 100 mls/hr Q24H IV Last administered on 03/03/19at 20:17; Start 03/02/19 at 18:00; Stop 03/04/19 at 13:35; Status DC Iohexol (Omnipaque 300 Mg/ml) 75 ml 1X ONCE IV Last administered on 03/02/19at 18:21; Start 03/02/19 at 18:00; Stop 03/02/19 at 18:02; Status DC Info (CONTRAST GIVEN -- Rx MONITORING) 1 each PRN DAILY PRN MC SEE COMMENTS; Start 03/02/19 at 18:15; Stop 03/04/19 at 18:14; Status DC Ondansetron HCl (Zofran) 8 mg PRN Q6HRS PRN IVP NAUSEA/VOMITING, 1st CHOICE Last administered on 03/06/19at 22:36; Start 03/03/19 at 08:45 Metoclopramide HCl (Reglan Vial) 10 mg PRN Q6HRS PRN IVP NAUSEA/VOMITING, 2nd CHOICE Last administered on 03/04/19at 06:05; Start 03/03/19 at 12:00 Promethazine HCl (Phenergan Supp) 25 mg PRN Q6HRS PRN [place] NAUSEA/VOMITING Last administered on 03/03/19at 16:27; Start 03/03/19 at 12:00 Prochlorperazine Edisylate (Compazine) 10 mg PRN Q6HRS PRN IM NAUSEA/VOMITING Last administered on 03/04/19at 08:24; Start 03/03/19 at 12:00 Sodium Chloride (Normal Saline Flush) 3 ml QSHIFT PRN IV AFTER MEDS AND BLOOD DRAWS; Start 03/03/19 at 12:15 Potassium Chloride/Dextrose/ Sod Cl 1,000 ml @ 100 mls/hr Q10H IV Last administered on 03/08/19at 02:49; Start 03/03/19 at 12:02 Lactobacillus Rhamnosus (Culturelle) 1 cap BID PO Last administered on 03/08/19at 09:11; Start 03/03/19 at 21:00 Pantoprazole Sodium (PROTONIX VIAL for IV PUSH) 40 mg BIDAC IVP Last administered on 03/05/19at 05:55; Start 03/03/19 at 16:30; Stop 03/05/19 at 14:01; Status DC Prochlorperazine Edisylate (Compazine) 10 mg PRN Q6HRS PRN IV NAUSEA/VOMITING, 3RD CHOICE Last administered on 03/04/19at 17:56; Start 03/04/19 at 11:30 Midazolam HCl (Versed) 2 mg PRN 1X PRN IV PRIOR TO PROCEDURE; Start 03/05/19 at 10:45; Stop 03/06/19 at 10:44; Status DC Fentanyl Citrate (Fentanyl 2ml Vial) 25 mcg PRN Q5MIN PRN IV X 2 DOSES FOR PAIN; Start 03/05/19 at 10:45; Stop 03/06/19 at 10:44; Status DC Fentanyl Citrate (Fentanyl 2ml Vial) 50 mcg PRN Q5MIN PRN IV X 2 DOSES FOR PAIN; Start 03/05/19 at 10:45; Stop 03/06/19 at 10:44; Status DC Ringer's Solution 1,000 ml @ 125 mls/hr Q8H IV ; Start 03/05/19 at 10:40; Stop 03/05/19 at 22:39; Status DC Lidocaine HCl (Xylocaine-Mpf 1% 2ml Vial) 2 ml 1X PRN PRN ID IV START; Start 03/05/19 at 10:45; Stop 03/06/19 at 10:44; Status DC Propofol 20 ml @ As Directed STK-MED ONCE IV ; Start 03/05/19 at 13:36; Stop 03/05/19 at 13:36; Status DC Lidocaine HCl (Lidocaine Pf 2% Vial) 5 ml STK-MED ONCE .ROUTE ; Start 03/05/19 at 13:36; Stop 03/05/19 at 13:36; Status DC Pantoprazole Sodium (Protonix) 40 mg DAILYAC PO Last administered on 03/08/19at 06:25; Start 03/06/19 at 07:30 Dicyclomine HCl (Bentyl) 10 mg QID PRN PO STOMACH PAIN/CRAMPING/DIARRHEA Last administered on 03/07/19at 23:04; Start 03/06/19 at 09:30 Loperamide HCl (Imodium) 2 mg BID PRN PO DIARRHEA Last administered on 03/06/19at 11:04; Start 03/06/19 at 09:30 Amoxicillin/ Clavulanate Potassium (Augmentin 875/ 125mg) 1 tab BID PO Last administered on 03/08/19at 09:11; Start 03/06/19 at 10:00 Azithromycin (Zithromax) 500 mg 1X ONCE PO Last administered on 03/06/19at 11:01; Start 03/06/19 at 10:00; Stop 03/06/19 at 10:01; Status DC Azithromycin (Zithromax) 500 mg 1X ONCE PO Last administered on 03/07/19at 12:31; Start 03/07/19 at 11:45; Stop 03/07/19 at 11:47; Status DC Active Scripts Active Tylenol (Acetaminophen) 325 Mg Tablet 650 Mg PO PRN Q6HRS PRN 30 Days Pantoprazole Sodium (Pantoprazole Sodium) 40 Mg Tablet.dr 40 Mg PO DAILYAC 30 Days Amox Tr-K Clv 875-125 Mg Tab (Amoxicillin/Potassium Clav) 1 Each Tablet 1 Tab PO BID 10 Days Reported Dicyclomine Hcl 10 Mg Capsule 1 Cap PO BID PRN Imitrex (Sumatriptan Succinate) 100 Mg Tablet 1 Tab PO BID PRN Hydroxyzine Hcl 25 Mg Tablet 1 Tab PO DAILY PRN Diclofenac Sodium 75 Mg Tablet.dr 1 Tab PO BID Zolpidem Tartrate 10 Mg Tablet 10 Mg PO HS Lisinopril 10 Mg Tablet 1 Tab PO HS Gabapentin 800 Mg Tablet 1 Tab PO BID Cyclobenzaprine Hcl 10 Mg Tablet 1 Tab PO BID PRN Colestipol Hcl 1 Gm Tablet 1 Gm PO BID Tramadol Hcl 50 Mg Tablet 1 Tab PO BID Vitals/I & O Vital Sign - Last 24 Hours 03/07/19 03/07/19 03/07/19 03/07/19 15:00 19:00 20:00 21:00 Temp 98.3 99.2 98.3 99.2 Pulse 77 73 73 Resp 14 18 B/P (MAP) 141/79 (99) 142/79 (100) 142/79 Pulse Ox 94 94 O2 Delivery Room Air Room Air Room Air 03/07/19 03/07/19 03/07/19 03/08/19 21:01 22:02 23:00 03:00 Temp 99.3 97.5 99.3 97.5 Pulse 82 63 Resp 18 18 B/P (MAP) 144/71 (95) 141/72 (95) Pulse Ox 92 97 O2 Delivery Room Air Room Air Room Air Room Air 03/08/19 03/08/19 03/08/19 03/08/19 07:00 08:00 09:11 10:34 Temp 98.0 98.0 Pulse 71 Resp 18 16 16 B/P (MAP) 132/61 (84) Pulse Ox 92 O2 Delivery Room Air Room Air Room Air Room Air Intake and Output 03/07/19 03/07/19 03/08/19 14:59 22:59 06:59 Intake Total 240 ml 230 ml 250 ml Balance 240 ml 230 ml 250 ml Problem List Problems Medical Problems: (1) Chest pain Status: Acute Assessment Abd pain- improved, non-ulcer dyspepsia likely contributing with negative EG, disposition plan per primary JOHN HOLDER MD Mar 08, 2019 11:01
[2019-03-08] MEDS ORDERED: AZITHROMYCIN 250 MG TABLET. PO ONE (11:15)
[2019-03-08 15:00] VITALS: BP 136/62
--- NOTE | 2019-03-08 16:08 | NUR ---
SS following up with discharge planning. [facility] accepted pt and submitted for insurance authorization this morning. SS spoke with Daphney at [facility] and was notified that she is still waiting on insurance determination at this time. SS will await insurance authorization and will proceed accordingly with discharge.
--- NOTE | 2019-03-08 16:39 | PDOC ---
PROGRESS NOTES Subjective Subjective Awaiting insurance approval first new care. Objective Objective Vital Signs Date Time Temp Pulse Resp B/P (MAP) Pulse Ox O2 Delivery O2 Flow Rate FiO2 03/08/19 11:00 98.0 82 18 138/68 (91) 98 Room Air 98.0 03/07/19 10:39 2.0 Intake and Output 03/08/19 07:00 Intake Total 720 ml Balance 720 ml Intake Oral 720 ml # Voids 6 # Bowel Movements 1 Physical Exam Abdomen: Normal bowel sounds Heart: Regular rate General: Alert Lungs: Clear to auscultation Assessment Assessment Problems Medical Problems: (1) Chest pain Status: Acute Sepsis Suspect CAP nausea, vomiting, abdominal pain UTI-Ecoli tobacco use hx CAD fibromyalgia hx of seizure disorder OA Plan Plan of Care To SNU see D/C summary Comment Review of Relevant I have reviewed the following items tori (where applicable) has been applied. Labs Laboratory Tests Test 03/08/19 07:16 Sodium Level 143 mmol/L (136-145) Potassium Level 3.9 mmol/L (3.5-5.1) Chloride Level 107 mmol/L (98-107) Carbon Dioxide Level 25 mmol/L (21-32) Anion Gap 11 (6-14) Blood Urea Nitrogen 8 mg/dL (7-20) Creatinine 0.9 mg/dL (0.6-1.0) Estimated GFR (Cockcroft-Gault) 63.0 Glucose Level 123 mg/dL (70-99) Calcium Level 9.6 mg/dL (8.5-10.1) Laboratory Tests Test 03/08/19 07:16 Sodium Level 143 mmol/L (136-145) Potassium Level 3.9 mmol/L (3.5-5.1) Chloride Level 107 mmol/L (98-107) Carbon Dioxide Level 25 mmol/L (21-32) Anion Gap 11 (6-14) Blood Urea Nitrogen 8 mg/dL (7-20) Creatinine 0.9 mg/dL (0.6-1.0) Estimated GFR (Cockcroft-Gault) 63.0 Glucose Level 123 mg/dL (70-99) Calcium Level 9.6 mg/dL (8.5-10.1) Microbiology 03/03/19 Urine Culture - Final, Complete 03/03/19 Urine Culture Result 1 (REUBEN) - Final, Complete 03/02/19 Blood Culture - Final, Complete NO GROWTH AFTER 5 DAYS Medications Current Medications Aspirin (Children'S Aspirin) 324 mg 1X ONCE PO Last administered on 03/02/19 10:27; Start 03/02/19 at 10:00; Stop 03/02/19 at 10:01; Status DC Sodium Chloride 500 ml @ 500 mls/hr 1X ONCE IV Last administered on 03/02/19at 10:25; Start 03/02/19 at 10:00; Stop 03/02/19 at 10:59; Status DC Ondansetron HCl (Zofran) 4 mg 1X ONCE IV Last administered on 03/02/19at 10:28; Start 03/02/19 at 10:00; Stop 03/02/19 at 10:01; Status DC Morphine Sulfate (Morphine Sulfate) 2 mg 1X ONCE IV Last administered on 03/02/19at 11:09; Start 03/02/19 at 11:00; Stop 03/02/19 at 11:03; Status DC Ondansetron HCl (Zofran) 4 mg PRN Q8HRS PRN IV NAUSEA/VOMITING Last administered on 03/03/19at 01:20; Start 03/02/19 at 12:15; Stop 03/03/19 at 08:36; Status DC Morphine Sulfate (Morphine Sulfate) 2 mg PRN Q2HR PRN IV PAIN Last administered on 03/03/19 01:19; Start 03/02/19 at 12:15; Stop 03/03/19 at 12:14; Status DC Sodium Chloride 1,000 ml @ 100 mls/hr Q10H IV Last administered on 03/03/19at 00:27; Start 03/02/19 at 12:01; Stop 03/03/19 at 12:00; Status DC Acetaminophen (Tylenol) 650 mg PRN Q6HRS PRN PO FEVER Last administered on 03/08/19 00:05; Start 03/02/19 at 15:00 Colestipol HCl (Colestid) 1 gm BID@1000,2200 PO Last administered on 03/05/19 09:22; Start 03/02/19 at 22:00; Stop 03/07/19 at 16:27; Status DC Cyclobenzaprine HCl (Flexeril) 10 mg BID PRN PO MUSCLE SPASMS Last administered on 03/07/19 21:07; Start 03/02/19 at 16:45 Dicyclomine HCl (Bentyl) 10 mg BID PRN PO STOMACH PAIN/CRAMPING Last administered on 03/04/19 22:05; Start 03/02/19 at 16:45; Stop 03/06/19 at 09:20; Status DC Hydroxyzine HCl (Atarax) 25 mg DAILY PRN PO ITCHING; Start 03/02/19 at 16:45 Lisinopril (Prinivil) 10 mg HS PO Last administered on 03/07/19 21:00; Start 03/02/19 at 21:00 Sumatriptan Succinate (Imitrex) 100 mg BID PRN PO MIGRAINE HEADACHE Last administered on 03/08/19 00:05; Start 03/02/19 at 16:45 Tramadol HCl (Ultram) 50 mg BID PO Last administered on 03/08/19 09:11; Start 03/02/19 at 21:00 Gabapentin (Neurontin) 800 mg BID PO Last administered on 03/08/19 09:11; Start 03/02/19 at 21:00 Zolpidem Tartrate (Ambien) 5 mg QHS PO Last administered on 03/07/19 21:00; Start 03/02/19 at 21:00 Doxycycline Hyclate 100 mg/ Dextrose 100 ml @ 50 mls/hr Q12HR IV Last administered on 03/06/19 08:13; Start 03/02/19 at 21:00; Stop 03/06/19 at 09:50; Status DC Piperacillin Sod/ Tazobactam Sod 3.375 gm/Sodium Chloride 50 ml @ 100 mls/hr Q6HRS IV Last administered on 03/06/19 05:26; Start 03/02/19 at 18:00; Stop 03/06/19 at 09:50; Status DC Vancomycin HCl (Vanco Per Pharmacy) 1 each PRN DAILY PRN MC SEE COMMENTS; Start 03/02/19 at 17:45; Status Cancel Micafungin Sodium 100 mg/Dextrose 100 ml @ 100 mls/hr Q24H IV Last administered on 03/04/19 22:11; Start 03/02/19 at 18:00; Stop 03/05/19 at 12:02; Status DC Vancomycin HCl 2 gm/Sodium Chloride 500 ml @ 250 mls/hr 1X ONCE IV ; Start 03/02/19 at 19:00; Stop 03/02/19 at 20:59; Status Cancel Daptomycin 480 mg/ Sodium Chloride 50 ml @ 100 mls/hr Q24H IV Last administered on 03/03/19at 20:17; Start 03/02/19 at 18:00; Stop 03/04/19 at 13:35; Status DC Iohexol (Omnipaque 300 Mg/ml) 75 ml 1X ONCE IV Last administered on 03/02/19at 18:21; Start 03/02/19 at 18:00; Stop 03/02/19 at 18:02; Status DC Info (CONTRAST GIVEN -- Rx MONITORING) 1 each PRN DAILY PRN MC SEE COMMENTS; Start 03/02/19 at 18:15; Stop 03/04/19 at 18:14; Status DC Ondansetron HCl (Zofran) 8 mg PRN Q6HRS PRN IVP NAUSEA/VOMITING, 1st CHOICE Last administered on 03/06/19at 22:36; Start 03/03/19 at 08:45 Metoclopramide HCl (Reglan Vial) 10 mg PRN Q6HRS PRN IVP NAUSEA/VOMITING, 2nd CHOICE Last administered on 03/04/19at 06:05; Start 03/03/19 at 12:00 Promethazine HCl (Phenergan Supp) 25 mg PRN Q6HRS PRN [place] NAUSEA/VOMITING Last administered on 03/03/19at 16:27; Start 03/03/19 at 12:00 Prochlorperazine Edisylate (Compazine) 10 mg PRN Q6HRS PRN IM NAUSEA/VOMITING Last administered on 03/04/19 08:24; Start 03/03/19 at 12:00 Sodium Chloride (Normal Saline Flush) 3 ml QSHIFT PRN IV AFTER MEDS AND BLOOD DRAWS; Start 03/03/19 at 12:15 Potassium Chloride/Dextrose/ Sod Cl 1,000 ml @ 100 mls/hr Q10H IV Last administered on 03/08/19at 12:02; Start 03/03/19 at 12:02 Lactobacillus Rhamnosus (Culturelle) 1 cap BID PO Last administered on 10/10/19at 09:11; Start 03/03/19 at 21:00 Pantoprazole Sodium (PROTONIX VIAL for IV PUSH) 40 mg BIDAC IVP Last administered on 03/05/19at 05:55; Start 03/03/19 at 16:30; Stop 03/05/19 at 14:01; Status DC Prochlorperazine Edisylate (Compazine) 10 mg PRN Q6HRS PRN IV NAUSEA/VOMITING, 3RD CHOICE Last administered on 03/04/19at 17:56; Start 03/04/19 at 11:30 Midazolam HCl (Versed) 2 mg PRN 1X PRN IV PRIOR TO PROCEDURE; Start 03/05/19 at 10:45; Stop 03/06/19 at 10:44; Status DC Fentanyl Citrate (Fentanyl 2ml Vial) 25 mcg PRN Q5MIN PRN IV X 2 DOSES FOR PAIN; Start 03/05/19 at 10:45; Stop 03/06/19 at 10:44; Status DC Fentanyl Citrate (Fentanyl 2ml Vial) 50 mcg PRN Q5MIN PRN IV X 2 DOSES FOR PAIN; Start 03/05/19 at 10:45; Stop 03/06/19 at 10:44; Status DC Ringer's Solution 1,000 ml @ 125 mls/hr Q8H IV ; Start 03/05/19 at 10:40; Stop 03/05/19 at 22:39; Status DC Lidocaine HCl (Xylocaine-Mpf 1% 2ml Vial) 2 ml 1X PRN PRN ID IV START; Start 03/05/19 at 10:45; Stop 03/06/19 at 10:44; Status DC Propofol 20 ml @ As Directed STK-MED ONCE IV ; Start 03/05/19 at 13:36; Stop 03/05/19 at 13:36; Status DC Lidocaine HCl (Lidocaine Pf 2% Vial) 5 ml STK-MED ONCE .ROUTE ; Start 03/05/19 at 13:36; Stop 03/05/19 at 13:36; Status DC Pantoprazole Sodium (Protonix) 40 mg DAILYAC PO Last administered on 03/08/19at 06:25; Start 03/06/19 at 07:30 Dicyclomine HCl (Bentyl) 10 mg QID PRN PO STOMACH PAIN/CRAMPING/DIARRHEA Last administered on 03/07/19at 23:04; Start 03/06/19 at 09:30 Loperamide HCl (Imodium) 2 mg BID PRN PO DIARRHEA Last administered on 03/06/19at 11:04; Start 03/06/19 at 09:30 Amoxicillin/ Clavulanate Potassium (Augmentin 875/ 125mg) 1 tab BID PO Last administered on 03/08/19at 09:11; Start 03/06/19 at 10:00 Azithromycin (Zithromax) 500 mg 1X ONCE PO Last administered on 03/06/19at 11:01; Start 03/06/19 at 10:00; Stop 03/06/19 at 10:01; Status DC Azithromycin (Zithromax) 500 mg 1X ONCE PO Last administered on 03/07/19at 12:31; Start 03/07/19 at 11:45; Stop 03/07/19 at 11:47; Status DC Azithromycin (Zithromax) 500 mg 1X ONCE PO Last administered on 03/08/19at 11:11; Start 03/08/19 at 11:15; Stop 03/08/19 at 11:16; Status DC Active Scripts Active Tylenol (Acetaminophen) 325 Mg Tablet 650 Mg PO PRN Q6HRS PRN 30 Days Pantoprazole Sodium (Pantoprazole Sodium) 40 Mg Tablet.dr 40 Mg PO DAILYAC 30 Days Amox Tr-K Clv 875-125 Mg Tab (Amoxicillin/Potassium Clav) 1 Each Tablet 1 Tab PO BID 10 Days Reported Dicyclomine Hcl 10 Mg Capsule 1 Cap PO BID PRN Imitrex (Sumatriptan Succinate) 100 Mg Tablet 1 Tab PO BID PRN Hydroxyzine Hcl 25 Mg Tablet 1 Tab PO DAILY PRN Diclofenac Sodium 75 Mg Tablet.dr 1 Tab PO BID Zolpidem Tartrate 10 Mg Tablet 10 Mg PO HS Lisinopril 10 Mg Tablet 1 Tab PO HS Gabapentin 800 Mg Tablet 1 Tab PO BID Cyclobenzaprine Hcl 10 Mg Tablet 1 Tab PO BID PRN Colestipol Hcl 1 Gm Tablet 1 Gm PO BID Tramadol Hcl 50 Mg Tablet 1 Tab PO BID Vitals/I & O Vital Sign - Last 24 Hours 03/07/19 03/07/19 03/07/19 03/07/19 19:00 20:00 21:00 21:01 Temp 99.2 99.2 Pulse 73 73 Resp 18 B/P (MAP) 142/79 (100) 142/79 Pulse Ox 94 O2 Delivery Room Air Room Air Room Air 03/07/19 03/07/19 03/08/19 03/08/19 22:02 23:00 03:00 07:00 Temp 99.3 97.5 98.0 99.3 97.5 98.0 Pulse 82 63 71 Resp 18 18 18 B/P (MAP) 144/71 (95) 141/72 (95) 132/61 (84) Pulse Ox 92 97 92 O2 Delivery Room Air Room Air Room Air Room Air 03/08/19 03/08/19 03/08/19 03/08/19 08:00 09:11 10:34 11:00 Temp 98.0 98.0 Pulse 82 Resp 16 16 18 B/P (MAP) 138/68 (91) Pulse Ox 98 O2 Delivery Room Air Room Air Room Air Room Air Intake and Output 03/07/19 03/07/19 03/08/19 15:00 23:00 07:00 Intake Total 240 ml 230 ml 250 ml Balance 240 ml 230 ml 250 ml SULEMAN BLACK MD Mar 08, 2019 16:39
[2019-03-08 19:20] VITALS: BP 134/73
[2019-03-08] MEDS: ZOLPIDEM 5 MG TABLET. PO SCH (21:22)
[2019-03-08] MEDS: DICYCLOMINE HCL 10 MG CAPSULE PO PRN (21:22)
[2019-03-08] MEDS: LISINOPRIL 10 MG TABLET PO SCH (21:23)
[2019-03-08 23:28] VITALS: BP 141/90
[2019-03-09] MEDS: POTASSIUM CL 20MEQ D5-0.45NACL 1,000 ML IV SCH ×2 (00:26→08:50)
[2019-03-09 03:36] VITALS: BP 120/62
[2019-03-09] MEDS: PANTOPRAZOLE 40 MG TABLET.DR. PO SCH (05:57)
[2019-03-09 07:00] VITALS: BP 119/55
[2019-03-09] MEDS: SUMAtriptan SUCCINATE 100 MG TABLET PO PRN (07:01)
[2019-03-09] MEDS: traMADol 50 MG TABLET PO SCH (08:49)
[2019-03-09] MEDS: GABAPENTIN 400 MG CAPSULE. PO SCH (08:49)
[2019-03-09] MEDS: LACTOBACILLUS RHAMNOSUS GG 1 CAPSULE. PO SCH (08:49)
[2019-03-09] MEDS: AMOXICILLIN/K CLAV 875/125MG TABLET. PO SCH (08:49)
[2019-03-09] MEDS: LOPERAMIDE 2 MG CAPSULE PO PRN (08:52)
--- NOTE | 2019-03-09 10:29 | NUR ---
SS following for discharge planning. SS reviewed pt chart. [facility] is ready to accept pt but continuing to wait on insurance authorization from [employer] [facility]. Case management attempting to contact [employer] for update on insurance authorization for skilled. Once received SS will proceed accordingly with discharge planning.
--- NOTE | 2019-03-09 10:49 | PDOC ---
PULMONARY PROGRESS NOTES Subjective PT WEAK BUT NOT MORE SOA NO HEMOPTYSIS Vitals Vital Signs Date Time Temp Pulse Resp B/P (MAP) Pulse Ox O2 Delivery O2 Flow Rate FiO2 03/09/19 09:52 Room Air 03/09/19 07:00 98.1 76 16 119/55 (76) 96 98.1 ROS: No Nausea, No Chest Pain, No Abdominal Pain, No Increase Cough General: Alert, Oriented X4 Lungs: Clear Cardiovascular: S1, S2 Abdomen: Soft Neuro Exam: Alert, Oriented, Normal Speech Extremities: No Edema Skin: Warm Labs Laboratory Tests Test 03/08/19 07:16 Sodium Level 143 mmol/L (136-145) Potassium Level 3.9 mmol/L (3.5-5.1) Chloride Level 107 mmol/L (98-107) Carbon Dioxide Level 25 mmol/L (21-32) Anion Gap 11 (6-14) Blood Urea Nitrogen 8 mg/dL (7-20) Creatinine 0.9 mg/dL (0.6-1.0) Estimated GFR (Cockcroft-Gault) 63.0 Glucose Level 123 mg/dL (70-99) Calcium Level 9.6 mg/dL (8.5-10.1) Medications Active Scripts Medications Dose Route/Sig Max Daily Dose Days Date Category Dicyclomine Hcl 10 Mg Capsule 1 Cap PO BID PRN 11/27/18 Reported Imitrex (Sumatriptan Succinate) 100 Mg Tablet 1 Tab PO BID PRN 11/27/18 Reported Hydroxyzine Hcl 25 Mg Tablet 1 Tab PO DAILY PRN 11/27/18 Reported Diclofenac Sodium 75 Mg Tablet.dr 1 Tab PO BID 11/27/18 Reported Zolpidem Tartrate 10 Mg Tablet 10 Mg PO HS 11/27/18 Reported Lisinopril 10 Mg Tablet 1 Tab PO HS 06/14/18 Reported Gabapentin 800 Mg Tablet 1 Tab PO BID 06/17/14 Reported Cyclobenzaprine Hcl 10 Mg Tablet 1 Tab PO BID PRN 06/17/14 Reported Colestipol Hcl 1 Gm Tablet 1 Gm PO BID 06/17/14 Reported Tramadol Hcl 50 Mg Tablet 1 Tab PO BID 06/17/14 Reported Impression . 1. Abnormal CT chest with mass-like densities in the right upper lobe and left lower lobe. Likely inflammatory in nature as her CT chest from November did not reveal any lung masses. There were 1-2 mm tiny nodules, which have been stable when compared to previous CAT scans. 2. High-grade fever 3. Minimal history of tobacco use. 4. Abnormal liver function tests--- 5. Normal lipase. No chemical evidence to suggest pancreatitis. 6. Normal D-dimer of 0.4. 7. DARA-resolved 8. E-Coli UTI Plan . TRANSFER TODAY FOLLOW UP IN APR WITH REPEAT CT GAVE APPT TO DAUGHTER JOSE CARLOS ROACH MD Mar 09, 2019 10:49
[2019-03-09 11:00] VITALS: BP 129/61
--- NOTE | 2019-03-09 11:08 | PDOC ---
G I PROGRESS NOTE Reason for Follow-up Abd pain Subjective Feeling better/ambulating Objective Lungs clear CV s1 S2 ABD +BS, soft, nontender Review of Relevant I have reviewed the following items tori (where applicable) has been applied. Labs Laboratory Tests Test 03/08/19 07:16 Sodium Level 143 mmol/L (136-145) Potassium Level 3.9 mmol/L (3.5-5.1) Chloride Level 107 mmol/L (98-107) Carbon Dioxide Level 25 mmol/L (21-32) Anion Gap 11 (6-14) Blood Urea Nitrogen 8 mg/dL (7-20) Creatinine 0.9 mg/dL (0.6-1.0) Estimated GFR (Cockcroft-Gault) 63.0 Glucose Level 123 mg/dL (70-99) Calcium Level 9.6 mg/dL (8.5-10.1) Microbiology 03/03/19 Urine Culture - Final, Complete 03/03/19 Urine Culture Result 1 (REUBEN) - Final, Complete 03/02/19 Blood Culture - Final, Complete NO GROWTH AFTER 5 DAYS Medications Current Medications Aspirin (Children'S Aspirin) 324 mg 1X ONCE PO Last administered on 03/02/19at 10:27; Start 03/02/19 at 10:00; Stop 03/02/19 at 10:01; Status DC Sodium Chloride 500 ml @ 500 mls/hr 1X ONCE IV Last administered on 03/02/19at 10:25; Start 03/02/19 at 10:00; Stop 03/02/19 at 10:59; Status DC Ondansetron HCl (Zofran) 4 mg 1X ONCE IV Last administered on 03/02/19at 10:28; Start 03/02/19 at 10:00; Stop 03/02/19 at 10:01; Status DC Morphine Sulfate (Morphine Sulfate) 2 mg 1X ONCE IV Last administered on 03/02/19at 11:09; Start 03/02/19 at 11:00; Stop 03/02/19 at 11:03; Status DC Ondansetron HCl (Zofran) 4 mg PRN Q8HRS PRN IV NAUSEA/VOMITING Last administered on 03/03/19at 01:20; Start 03/02/19 at 12:15; Stop 03/03/19 at 08:36; Status DC Morphine Sulfate (Morphine Sulfate) 2 mg PRN Q2HR PRN IV PAIN Last administered on 03/03/19 01:19; Start 03/02/19 at 12:15; Stop 03/03/19 at 12:14; Status DC Sodium Chloride 1,000 ml @ 100 mls/hr Q10H IV Last administered on 03/03/19 00:27; Start 03/02/19 at 12:01; Stop 03/03/19 at 12:00; Status DC Acetaminophen (Tylenol) 650 mg PRN Q6HRS PRN PO FEVER Last administered on 03/08/19at 00:05; Start 03/02/19 at 15:00 Colestipol HCl (Colestid) 1 gm BID@1000,2200 PO Last administered on 03/05/19 09:22; Start 03/02/19 at 22:00; Stop 03/07/19 at 16:27; Status DC Cyclobenzaprine HCl (Flexeril) 10 mg BID PRN PO MUSCLE SPASMS Last administered on 03/07/19 21:07; Start 03/02/19 at 16:45 Dicyclomine HCl (Bentyl) 10 mg BID PRN PO STOMACH PAIN/CRAMPING Last administered on 03/04/19 22:05; Start 03/02/19 at 16:45; Stop 03/06/19 at 09:20; Status DC Hydroxyzine HCl (Atarax) 25 mg DAILY PRN PO ITCHING; Start 03/02/19 at 16:45 Lisinopril (Prinivil) 10 mg HS PO Last administered on 03/08/19 21:23; Start 03/02/19 at 21:00 Sumatriptan Succinate (Imitrex) 100 mg BID PRN PO MIGRAINE HEADACHE Last administered on 03/09/19 07:01; Start 03/02/19 at 16:45 Tramadol HCl (Ultram) 50 mg BID PO Last administered on 03/09/19 08:49; Start 03/02/19 at 21:00 Gabapentin (Neurontin) 800 mg BID PO Last administered on 03/09/19 08:49; Start 03/02/19 at 21:00 Zolpidem Tartrate (Ambien) 5 mg QHS PO Last administered on 03/08/19 21:22; Start 03/02/19 at 21:00 Doxycycline Hyclate 100 mg/ Dextrose 100 ml @ 50 mls/hr Q12HR IV Last administered on 03/06/19at 08:13; Start 03/02/19 at 21:00; Stop 03/06/19 at 09:50; Status DC Piperacillin Sod/ Tazobactam Sod 3.375 gm/Sodium Chloride 50 ml @ 100 mls/hr Q6HRS IV Last administered on 03/06/19at 05:26; Start 03/02/19 at 18:00; Stop 03/06/19 at 09:50; Status DC Vancomycin HCl (Vanco Per Pharmacy) 1 each PRN DAILY PRN MC SEE COMMENTS; Start 03/02/19 at 17:45; Status Cancel Micafungin Sodium 100 mg/Dextrose 100 ml @ 100 mls/hr Q24H IV Last administered on 03/04/19at 22:11; Start 03/02/19 at 18:00; Stop 03/05/19 at 12:02; Status DC Vancomycin HCl 2 gm/Sodium Chloride 500 ml @ 250 mls/hr 1X ONCE IV ; Start 03/02/19 at 19:00; Stop 03/02/19 at 20:59; Status Cancel Daptomycin 480 mg/ Sodium Chloride 50 ml @ 100 mls/hr Q24H IV Last administered on 03/03/19at 20:17; Start 03/02/19 at 18:00; Stop 03/04/19 at 13:35; Status DC Iohexol (Omnipaque 300 Mg/ml) 75 ml 1X ONCE IV Last administered on 03/02/19at 18:21; Start 03/02/19 at 18:00; Stop 03/02/19 at 18:02; Status DC Info (CONTRAST GIVEN -- Rx MONITORING) 1 each PRN DAILY PRN MC SEE COMMENTS; Start 03/02/19 at 18:15; Stop 03/04/19 at 18:14; Status DC Ondansetron HCl (Zofran) 8 mg PRN Q6HRS PRN IVP NAUSEA/VOMITING, 1st CHOICE Last administered on 03/06/19at 22:36; Start 03/03/19 at 08:45 Metoclopramide HCl (Reglan Vial) 10 mg PRN Q6HRS PRN IVP NAUSEA/VOMITING, 2nd CHOICE Last administered on 03/04/19at 06:05; Start 03/03/19 at 12:00 Promethazine HCl (Phenergan Supp) 25 mg PRN Q6HRS PRN HI NAUSEA/VOMITING Last administered on 03/03/19at 16:27; Start 03/03/19 at 12:00 Prochlorperazine Edisylate (Compazine) 10 mg PRN Q6HRS PRN IM NAUSEA/VOMITING Last administered on 03/04/19 08:24; Start 03/03/19 at 12:00 Sodium Chloride (Normal Saline Flush) 3 ml QSHIFT PRN IV AFTER MEDS AND BLOOD DRAWS; Start 03/03/19 at 12:15 Potassium Chloride/Dextrose/ Sod Cl 1,000 ml @ 100 mls/hr Q10H IV Last administered on 03/09/19 08:50; Start 03/03/19 at 12:02 Lactobacillus Rhamnosus (Culturelle) 1 cap BID PO Last administered on 03/09/19 08:49; Start 03/03/19 at 21:00 Pantoprazole Sodium (PROTONIX VIAL for IV PUSH) 40 mg BIDAC IVP Last administered on 03/05/19 05:55; Start 03/03/19 at 16:30; Stop 03/05/19 at 14:01; Status DC Prochlorperazine Edisylate (Compazine) 10 mg PRN Q6HRS PRN IV NAUSEA/VOMITING, 3RD CHOICE Last administered on 03/04/19at 17:56; Start 03/04/19 at 11:30 Midazolam HCl (Versed) 2 mg PRN 1X PRN IV PRIOR TO PROCEDURE; Start 03/05/19 at 10:45; Stop 03/06/19 at 10:44; Status DC Fentanyl Citrate (Fentanyl 2ml Vial) 25 mcg PRN Q5MIN PRN IV X 2 DOSES FOR PAIN; Start 03/05/19 at 10:45; Stop 03/06/19 at 10:44; Status DC Fentanyl Citrate (Fentanyl 2ml Vial) 50 mcg PRN Q5MIN PRN IV X 2 DOSES FOR PAIN; Start 03/05/19 at 10:45; Stop 03/06/19 at 10:44; Status DC Ringer's Solution 1,000 ml @ 125 mls/hr Q8H IV ; Start 03/05/19 at 10:40; Stop 03/05/19 at 22:39; Status DC Lidocaine HCl (Xylocaine-Mpf 1% 2ml Vial) 2 ml 1X PRN PRN ID IV START; Start 03/05/19 at 10:45; Stop 03/06/19 at 10:44; Status DC Propofol 20 ml @ As Directed STK-MED ONCE IV ; Start 03/05/19 at 13:36; Stop 03/05/19 at 13:36; Status DC Lidocaine HCl (Lidocaine Pf 2% Vial) 5 ml STK-MED ONCE .ROUTE ; Start 03/05/19 at 13:36; Stop 03/05/19 at 13:36; Status DC Pantoprazole Sodium (Protonix) 40 mg DAILYAC PO Last administered on 03/09/19at 05:57; Start 03/06/19 at 07:30 Dicyclomine HCl (Bentyl) 10 mg QID PRN PO STOMACH PAIN/CRAMPING/DIARRHEA Last administered on 03/08/19at 21:22; Start 03/06/19 at 09:30 Loperamide HCl (Imodium) 2 mg BID PRN PO DIARRHEA Last administered on 03/09/19at 08:52; Start 03/06/19 at 09:30 Amoxicillin/ Clavulanate Potassium (Augmentin 875/ 125mg) 1 tab BID PO Last administered on 03/09/19at 08:49; Start 03/06/19 at 10:00 Azithromycin (Zithromax) 500 mg 1X ONCE PO Last administered on 03/06/19at 1 1:01; Start 03/06/19 at 10:00; Stop 03/06/19 at 10:01; Status DC Azithromycin (Zithromax) 500 mg 1X ONCE PO Last administered on 03/07/19at 12:31; Start 03/07/19 at 11:45; Stop 03/07/19 at 11:47; Status DC Azithromycin (Zithromax) 500 mg 1X ONCE PO Last administered on 03/08/19at 11:11; Start 03/08/19 at 11:15; Stop 03/08/19 at 11:16; Status DC Active Scripts Active Tylenol (Acetaminophen) 325 Mg Tablet 650 Mg PO PRN Q6HRS PRN 30 Days Pantoprazole Sodium (Pantoprazole Sodium) 40 Mg Tablet.dr 40 Mg PO DAILYAC 30 Days Amox Tr-K Clv 875-125 Mg Tab (Amoxicillin/Potassium Clav) 1 Each Tablet 1 Tab PO BID 10 Days Reported Dicyclomine Hcl 10 Mg Capsule 1 Cap PO BID PRN Imitrex (Sumatriptan Succinate) 100 Mg Tablet 1 Tab PO BID PRN Hydroxyzine Hcl 25 Mg Tablet 1 Tab PO DAILY PRN Diclofenac Sodium 75 Mg Tablet.dr 1 Tab PO BID Zolpidem Tartrate 10 Mg Tablet 10 Mg PO HS Lisinopril 10 Mg Tablet 1 Tab PO HS Gabapentin 800 Mg Tablet 1 Tab PO BID Cyclobenzaprine Hcl 10 Mg Tablet 1 Tab PO BID PRN Colestipol Hcl 1 Gm Tablet 1 Gm PO BID Tramadol Hcl 50 Mg Tablet 1 Tab PO BID Vitals/I & O Vital Sign - Last 24 Hours 03/08/19 03/08/19 03/08/19 03/08/19 15:00 19:20 20:00 21:22 Temp 97.9 99.1 97.9 99.1 Pulse 70 80 Resp 18 18 B/P (MAP) 136/62 (86) 134/73 (93) Pulse Ox 93 93 93 O2 Delivery Room Air Room Air Room Air Room Air 03/08/19 03/08/19 03/08/19 03/09/19 21:23 22:22 23:28 03:36 Temp 98.2 98.1 98.2 98.1 Pulse 80 88 74 Resp 18 18 B/P (MAP) 134/73 141/90 (107) 120/62 (81) Pulse Ox 94 94 93 O2 Delivery Room Air Room Air Room Air 03/09/19 03/09/19 03/09/19 03/09/19 07:00 07:20 08:49 09:52 Temp 98.1 98.1 Pulse 76 Resp 16 B/P (MAP) 119/55 (76) Pulse Ox 96 O2 Delivery Room Air Room Air Room Air Room Air Intake and Output 03/08/19 03/08/19 03/09/19 14:59 22:59 06:59 Intake Total 700 ml 300 ml 540 ml Output Total 1 ml Balance 700 ml 299 ml 540 ml Problem List Problems Medical Problems: (1) DARA (acute kidney injury) Status: Acute (2) Chest pain Status: Acute (3) Pneumonia Status: Acute (4) Sepsis Status: Acute (5) UTI (urinary tract infection) Status: Acute Assessment Abd pain- most likely multifactorial in etiology, non-ulcer dyspepsia contributing, CPM JOHN HOLDER MD Mar 09, 2019 11:08
--- NOTE | 2019-03-09 11:38 | NUR ---
SS following up with discharge planning. Authorization received for [facility], ; fax [phone]. Discharge orders phoned and faxed to [facility]. Pt will discharge today and go to [facility] at [address] [facility] transport, [id number]. Pt, pt's RN, and pt's daughter notified.
--- NOTE | 2019-03-09 13:09 | NUR ---
Pt. discharged to via per transportation service. Family with pt.
--- NOTE | 2019-03-09 13:22 | PDOC ---
PROGRESS NOTES Subjective Subjective D/C today to SNU Objective Objective Vital Signs Date Time Temp Pulse Resp B/P (MAP) Pulse Ox O2 Delivery O2 Flow Rate FiO2 03/09/19 11:00 72 16 129/61 (83) 97 Room Air 03/09/19 07:00 98.1 98.1 03/07/19 10:39 2.0 Intake and Output 03/09/19 07:00 Intake Total 1540 ml Output Total 1 ml Balance 1539 ml Intake Oral 1540 ml Stool Total 1 ml # Voids 5 Assessment Assessment Problems Medical Problems: (1) DARA (acute kidney injury) Status: Acute (2) Chest pain Status: Acute (3) Pneumonia Status: Acute (4) Sepsis Status: Acute (5) UTI (urinary tract infection) Status: Acute Sepsis - Resolved Suspect CAP nausea, vomiting, abdominal pain UTI-Ecoli tobacco use hx CAD fibromyalgia hx of seizure disorder OA Plan Plan of Care To snu Comment Review of Relevant I have reviewed the following items tori (where applicable) has been applied. Labs Laboratory Tests Test 03/08/19 07:16 Sodium Level 143 mmol/L (136-145) Potassium Level 3.9 mmol/L (3.5-5.1) Chloride Level 107 mmol/L (98-107) Carbon Dioxide Level 25 mmol/L (21-32) Anion Gap 11 (6-14) Blood Urea Nitrogen 8 mg/dL (7-20) Creatinine 0.9 mg/dL (0.6-1.0) Estimated GFR (Cockcroft-Gault) 63.0 Glucose Level 123 mg/dL (70-99) Calcium Level 9.6 mg/dL (8.5-10.1) Microbiology 03/03/19 Urine Culture - Final, Complete 03/03/19 Urine Culture Result 1 (REUBEN) - Final, Complete 03/02/19 Blood Culture - Final, Complete NO GROWTH AFTER 5 DAYS Medications Current Medications Aspirin (Children'S Aspirin) 324 mg 1X ONCE PO Last administered on 03/02/19at 10:27; Start 03/02/19 at 10:00; Stop 03/02/19 at 10:01; Status DC Sodium Chloride 500 ml @ 500 mls/hr 1X ONCE IV Last administered on 03/02/19at 10:25; Start 03/02/19 at 10:00; Stop 03/02/19 at 10:59; Status DC Ondansetron HCl (Zofran) 4 mg 1X ONCE IV Last administered on 03/02/19at 10:28; Start 03/02/19 at 10:00; Stop 03/02/19 at 10:01; Status DC Morphine Sulfate (Morphine Sulfate) 2 mg 1X ONCE IV Last administered on 03/02/19at 11:09; Start 03/02/19 at 11:00; Stop 03/02/19 at 11:03; Status DC Ondansetron HCl (Zofran) 4 mg PRN Q8HRS PRN IV NAUSEA/VOMITING Last administered on 03/03/19at 01:20; Start 03/02/19 at 12:15; Stop 03/03/19 at 08:36; Status DC Morphine Sulfate (Morphine Sulfate) 2 mg PRN Q2HR PRN IV PAIN Last administered on 03/03/19at 01:19; Start 03/02/19 at 12:15; Stop 03/03/19 at 12:14; Status DC Sodium Chloride 1,000 ml @ 100 mls/hr Q10H IV Last administered on 03/03/19at 00:27; Start 03/02/19 at 12:01; Stop 03/03/19 at 12:00; Status DC Acetaminophen (Tylenol) 650 mg PRN Q6HRS PRN PO FEVER Last administered on 03/08/19at 00:05; Start 03/02/19 at 15:00 Colestipol HCl (Colestid) 1 gm BID@1000,2200 PO Last administered on 03/05/19at 09:22; Start 03/02/19 at 22:00; Stop 03/07/19 at 16:27; Status DC Cyclobenzaprine HCl (Flexeril) 10 mg BID PRN PO MUSCLE SPASMS Last administered on 03/07/19at 21:07; Start 03/02/19 at 16:45 Dicyclomine HCl (Bentyl) 10 mg BID PRN PO STOMACH PAIN/CRAMPING Last administered on 03/04/19at 22:05; Start 03/02/19 at 16:45; Stop 03/06/19 at 09:20; Status DC Hydroxyzine HCl (Atarax) 25 mg DAILY PRN PO ITCHING; Start 03/02/19 at 16:45 Lisinopril (Prinivil) 10 mg HS PO Last administered on 03/08/19 21:23; Start 03/02/19 at 21:00 Sumatriptan Succinate (Imitrex) 100 mg BID PRN PO MIGRAINE HEADACHE Last administered on 03/09/19at 07:01; Start 03/02/19 at 16:45 Tramadol HCl (Ultram) 50 mg BID PO Last administered on 03/09/19 08:49; Start 03/02/19 at 21:00 Gabapentin (Neurontin) 800 mg BID PO Last administered on 03/09/19 08:49; Start 03/02/19 at 21:00 Zolpidem Tartrate (Ambien) 5 mg QHS PO Last administered on 03/08/19 21:22; Start 03/02/19 at 21:00 Doxycycline Hyclate 100 mg/ Dextrose 100 ml @ 50 mls/hr Q12HR IV Last administered on 03/06/19at 08:13; Start 03/02/19 at 21:00; Stop 03/06/19 at 09 :50; Status DC Piperacillin Sod/ Tazobactam Sod 3.375 gm/Sodium Chloride 50 ml @ 100 mls/hr Q6HRS IV Last administered on 03/06/19at 05:26; Start 03/02/19 at 18:00; Stop 03/06/19 at 09:50; Status DC Vancomycin HCl (Vanco Per Pharmacy) 1 each PRN DAILY PRN MC SEE COMMENTS; Start 03/02/19 at 17:45; Status Cancel Micafungin Sodium 100 mg/Dextrose 100 ml @ 100 mls/hr Q24H IV Last administered on 03/04/19at 22:11; Start 03/02/19 at 18:00; Stop 03/05/19 at 12:02; Status DC Vancomycin HCl 2 gm/Sodium Chloride 500 ml @ 250 mls/hr 1X ONCE IV ; Start 03/02/19 at 19:00; Stop 03/02/19 at 20:59; Status Cancel Daptomycin 480 mg/ Sodium Chloride 50 ml @ 100 mls/hr Q24H IV Last administered on 03/03/19at 20:17; Start 03/02/19 at 18:00; Stop 03/04/19 at 13:35; Status DC Iohexol (Omnipaque 300 Mg/ml) 75 ml 1X ONCE IV Last administered on 03/02/19 18:21; Start 03/02/19 at 18:00; Stop 03/02/19 at 18:02; Status DC Info (CONTRAST GIVEN -- Rx MONITORING) 1 each PRN DAILY PRN MC SEE COMMENTS; Start 03/02/19 at 18:15; Stop 03/04/19 at 18:14; Status DC Ondansetron HCl (Zofran) 8 mg PRN Q6HRS PRN IVP NAUSEA/VOMITING, 1st CHOICE Last administered on 03/06/19at 22:36; Start 03/03/19 at 08:45 Metoclopramide HCl (Reglan Vial) 10 mg PRN Q6HRS PRN IVP NAUSEA/VOMITING, 2nd C HOICE Last administered on 03/04/19 06:05; Start 03/03/19 at 12:00 Promethazine HCl (Phenergan Supp) 25 mg PRN Q6HRS PRN ME NAUSEA/VOMITING Last administered on 03/03/19 16:27; Start 03/03/19 at 12:00 Prochlorperazine Edisylate (Compazine) 10 mg PRN Q6HRS PRN IM NAUSEA/VOMITING Last administered on 03/04/19 08:24; Start 03/03/19 at 12:00 Sodium Chloride (Normal Saline Flush) 3 ml QSHIFT PRN IV AFTER MEDS AND BLOOD DRAWS; Start 03/03/19 at 12:15 Potassium Chloride/Dextrose/ Sod Cl 1,000 ml @ 100 mls/hr Q10H IV Last administered on 03/09/19 08:50; Start 03/03/19 at 12:02 Lactobacillus Rhamnosus (Culturelle) 1 cap BID PO Last administered on 03/09/19 08:49; Start 03/03/19 at 21:00 Pantoprazole Sodium (PROTONIX VIAL for IV PUSH) 40 mg BIDAC IVP Last administered on 03/05/19 05:55; Start 03/03/19 at 16:30; Stop 03/05/19 at 14:01; Status DC Prochlorperazine Edisylate (Compazine) 10 mg PRN Q6HRS PRN IV NAUSEA/VOMITING, 3RD CHOICE Last administered on 03/04/19at 17:56; Start 03/04/19 at 11:30 Midazolam HCl (Versed) 2 mg PRN 1X PRN IV PRIOR TO PROCEDURE; Start 03/05/19 at 10:45; Stop 03/06/19 at 10:44; Status DC Fentanyl Citrate (Fentanyl 2ml Vial) 25 mcg PRN Q5MIN PRN IV X 2 DOSES FOR PAIN; Start 03/05/19 at 10:45; Stop 03/06/19 at 10:44; Status DC Fentanyl Citrate (Fentanyl 2ml Vial) 50 mcg PRN Q5MIN PRN IV X 2 DOSES FOR PAIN; Start 03/05/19 at 10:45; Stop 03/06/19 at 10:44; Status DC Ringer's Solution 1,000 ml @ 125 mls/hr Q8H IV ; Start 03/05/19 at 10:40; Stop 03/05/19 at 22:39; Status DC Lidocaine HCl (Xylocaine-Mpf 1% 2ml Vial) 2 ml 1X PRN PRN ID IV START; Start 03/05/19 at 10:45; Stop 03/06/19 at 10:44; Status DC Propofol 20 ml @ As Directed STK-MED ONCE IV ; Start 03/05/19 at 13:36; Stop 03/05/19 at 13:36; Status DC Lidocaine HCl (Lidocaine Pf 2% Vial) 5 ml STK-MED ONCE .ROUTE ; Start 03/05/19 at 13:36; Stop 03/05/19 at 13:36; Status DC Pantoprazole Sodium (Protonix) 40 mg DAILYAC PO Last administered on 03/09/19at 05:57; Start 03/06/19 at 07:30 Dicyclomine HCl (Bentyl) 10 mg QID PRN PO STOMACH PAIN/CRAMPING/DIARRHEA Last administered on 03/08/19at 21:22; Start 03/06/19 at 09:30 Loperamide HCl (Imodium) 2 mg BID PRN PO DIARRHEA Last administered on 03/09/19at 08:52; Start 03/06/19 at 09:30 Amoxicillin/ Clavulanate Potassium (Augmentin 875/ 125mg) 1 tab BID PO Last administered on 03/09/19at 08:49; Start 03/06/19 at 10:00 Azithromycin (Zithromax) 500 mg 1X ONCE PO Last administered on 03/06/19at 11:01; Start 03/06/19 at 10:00; Stop 03/06/19 at 10:01; Status DC Azithromycin (Zithromax) 500 mg 1X ONCE PO Last administered on 03/07/19at 12:31; Start 03/07/19 at 11:45; Stop 03/07/19 at 11:47; Status DC Azithromycin (Zithromax) 500 mg 1X ONCE PO Last administered on 03/08/19at 11:11; Start 03/08/19 at 11:15; Stop 03/08/19 at 11:16; Status DC Active Scripts Active Tylenol (Acetaminophen) 325 Mg Tablet 650 Mg PO PRN Q6HRS PRN 30 Days Pantoprazole Sodium (Pantoprazole Sodium) 40 Mg Tablet.dr 40 Mg PO DAILYAC 30 Days Amox Tr-K Clv 875-125 Mg Tab (Amoxicillin/Potassium Clav) 1 Each Tablet 1 Tab PO BID 10 Days Reported Dicyclomine Hcl 10 Mg Capsule 1 Cap PO BID PRN Imitrex (Sumatriptan Succinate) 100 Mg Tablet 1 Tab PO BID PRN Hydroxyzine Hcl 25 Mg Tablet 1 Tab PO DAILY PRN Diclofenac Sodium 75 Mg Tablet.dr 1 Tab PO BID Zolpidem Tartrate 10 Mg Tablet 10 Mg PO HS Lisinopril 10 Mg Tablet 1 Tab PO HS Gabapentin 800 Mg Tablet 1 Tab PO BID Cyclobenzaprine Hcl 10 Mg Tablet 1 Tab PO BID PRN Colestipol Hcl 1 Gm Tablet 1 Gm PO BID Tramadol Hcl 50 Mg Tablet 1 Tab PO BID Vitals/I & O Vital Sign - Last 24 Hours 03/08/19 03/08/19 03/08/19 03/08/19 15:00 19:20 20:00 21:22 Temp 97.9 99.1 97.9 99.1 Pulse 70 80 Resp 18 18 B/P (MAP) 136/62 (86) 134/73 (93) Pulse Ox 93 93 93 O2 Delivery Room Air Room Air Room Air Room Air 03/08/19 03/08/19 03/08/19 03/09/19 21:23 22:22 23:28 03:36 Temp 98.2 98.1 98.2 98.1 Pulse 80 88 74 Resp 18 18 B/P (MAP) 134/73 141/90 (107) 120/62 (81) Pulse Ox 94 94 93 O2 Delivery Room Air Room Air Room Air 03/09/19 03/09/19 03/09/19 03/09/19 07:00 07:20 08:49 09:52 Temp 98.1 98.1 Pulse 76 Resp 16 B/P (MAP) 119/55 (76) Pulse Ox 96 O2 Delivery Room Air Room Air Room Air Room Air 03/09/19 11:00 Pulse 72 Resp 16 B/P (MAP) 129/61 (83) Pulse Ox 97 O2 Delivery Room Air Intake and Output 03/08/19 03/08/19 03/09/19 15:00 23:00 07:00 Intake Total 700 ml 300 ml 540 ml Output Total 1 ml Balance 700 ml 299 ml 540 ml SULEMAN BLACK MD Mar 09, 2019 13:22
== END 2019-03-09 13:27 | DRG 871 ==
LOC: ER 09:25 → 6 SOUTH 12:20 → 4 NORTH 03-04 19:10
PROVIDERS: ADMIT Family Medicine; ATTEND Family Medicine
PROC: 0DJ08ZZ Inspection of Upper Intestinal Tract, Via Natural or Artificial Opening Endoscopic (ICD-10-PCS; principal; 2019-03-05 13:30)
DX: A41.9 Sepsis, unspecified organism (principal); J18.9 Pneumonia, unspecified organism; G93.40 Encephalopathy, unspecified; N17.9 Acute kidney failure, unspecified; N39.0 Urinary tract infection, site not specified; C34.90 Malignant neoplasm of unspecified part of unspecified bronchus or lung; B96.20 Unspecified Escherichia coli [E. coli] as the cause of diseases classified elsewhere; E78.5 Hyperlipidemia, unspecified; G40.909 Epilepsy, unspecified, not intractable, without status epilepticus; I25.10 Atherosclerotic heart disease of native coronary artery without angina pectoris; K21.9 Gastro-esophageal reflux disease without esophagitis; K29.70 Gastritis, unspecified, without bleeding; I10 Essential (primary) hypertension; I25.2 Old myocardial infarction; K58.9 Irritable bowel syndrome, unspecified; K83.8 Other specified diseases of biliary tract; M79.7 Fibromyalgia; M81.0 Age-related osteoporosis without current pathological fracture; Z82.49 Family history of ischemic heart disease and other diseases of the circulatory system; Z83.3 Family history of diabetes mellitus; Z85.118 Personal history of other malignant neoplasm of bronchus and lung; Z85.43 Personal history of malignant neoplasm of ovary; Z87.11 Personal history of peptic ulcer disease; Z87.440 Personal history of urinary (tract) infections; Z90.49 Acquired absence of other specified parts of digestive tract; Z90.710 Acquired absence of both cervix and uterus; Z90.722 Acquired absence of ovaries, bilateral; G43.909 Migraine, unspecified, not intractable, without status migrainosus; M19.90 Unspecified osteoarthritis, unspecified site
CPT/HCPCS: 36415; 43235; 70450; 71046; 71260; 74177; 76700; 80048; 80053; 80076; 81001; 82150; 82248; 82553; 83605; 83690; 83735; 84145; 84484; 85007; 85025; 85027; 85379; 85610; 85651; 85730; 86705; 86709; 86803; 87040; 87086; 87186; 87340; 87804; 93005; 96361; 96374; 96375; C9113; J0780; J0878; J2001; J2248; J2270; J2405; J2543; J2704; J2765; J3490; J7030; J7040; Q0144; Q9967; 97530; 97535; 99285-25; G0378

== ENCOUNTER 2019-03-27 11:08 | Emergency (ER) | payer BC, OTHER ==
[~2019-03-27] VITALS: Ht 170.2 cm; Wt 79.8 kg
[~2019-03-27 11:08] MED LIST changes: +ACET325T9 PO; +AMOX1TAB11 PO
[2019-03-27] MEDS ORDERED: IV NORMAL SALINE 1000ML BAG 1,000 ML IV SCH (11:29)
[2019-03-27] MEDS ORDERED: fentaNYL PF VIAL 100 MCG/2 ML VIAL IV PRN (11:30)
[2019-03-27] MEDS ORDERED: SUMAtriptan SUCC 6 MG/0.5 ML VIAL. SQ ONE (11:30)
[2019-03-27] MEDS ORDERED: ONDANSETRON PF 4 MG/2 ML VIAL. IV ONE (11:30)
[2019-03-27] MEDS ORDERED: KETOROLAC 15 MG/ML VIAL. IVP ONE (11:30)
[2019-03-27 11:51] LABS: BILIRUBIN,URINE NEGATIVE (NEG); CLARITY,URINE CLEAR; COLOR,URINE YELLOW; NITRITE,URINE NEGATIVE (NEG); PH,URINE 7.5; PROTEIN,URINE NEGATIVE (NEG-TRACE); UROBILINOGEN,URINE 0.2 mg/dL (0.2 mg/dL)
[2019-03-27 12:00] LABS: BASO # 0.1 x10^3/uL (0.0-0.2); BASO % 1 % (0-3); EOS # 0.1 x10^3/uL (0.0-0.7); EOS % 1 % (0-3); HEMATOCRIT 40.3 % (36.0-47.0); HEMOGLOBIN 13.5 g/dL (12.0-15.5); LYMPH # 0.9 x10^3/uL (1.0-4.8); LYMPH % 7 % (24-48); MEAN CORPUSCULAR HEMOGLOBIN 28 pg (25-35); MEAN CORPUSCULAR HGB CONC 34 g/dL (31-37); MEAN CORPUSCULAR VOLUME 84 fL (79-100); MONO # 1.3 x10^3/uL (0.0-1.1); MONO % 11 % (0-9); NEUT # 10.3 x10^3/uL (1.8-7.7); NEUT % 82 % (31-73); PLATELET COUNT 320 x10^3/uL (140-400); RED BLOOD COUNT 4.82 x10^6/uL (3.50-5.40); RED CELL DISTRIBUTION WIDTH 12.7 % (11.5-14.5); WHITE BLOOD COUNT 12.6 x10^3/uL (4.0-11.0)
[2019-03-27 12:06] LABS: BACTERIA,URINE 0 /HPF (0-FEW); RBC,URINE 0 /HPF (0-2); SQUAMOUS EPITHELIAL CELL,UR FEW /LPF
[2019-03-27 12:25] LABS: CALCIUM 9.8 mg/dL (8.5-10.1); GFR 55.8; POTASSIUM 4.1 mmol/L (3.5-5.1)
[2019-03-27 12:31] LABS: ALBUMIN 3.6 g/dL (3.4-5.0); ALBUMIN/GLOBULIN RATIO 0.7 (1.0-1.7); TOTAL PROTEIN 8.6 g/dL (6.4-8.2)
[2019-03-27] MEDS ORDERED: CONTRAST GIVEN. MC PRN (12:45)
[2019-03-27] MEDS ORDERED: IOHEXOL 300 MG/ML 100ML VIAL. IV ONE (12:45)
--- NOTE | 2019-03-27 13:41 | RAD ---
CT of the abdomen and pelvis with IV contrast compared to ultrasound of the abdomen dated March 03, 2019 for abdominal pain. TECHNIQUE: Contiguous axial 5 mm images are obtained from the apex of diaphragm to the pelvic floor following a ministration of IV contrast. Sagittal and coronal reformations are evaluated. FINDINGS: There is some patchy atelectasis in the right lung base. Heart size is within normal limits. No focal hepatic parenchymal abnormalities. The pancreas, spleen, and bilateral adrenal glands are grossly unremarkable. There is been a prior cholecystectomy. There is no hydronephrosis or perinephric fluid involving either kidney. On the right, there is a 2.2 cm circumscribed hypodensity involving the anterior aspect of the superior pole the right kidney with Hounsfield units of 28 suggesting complex fluid and/or soft tissue. On the left kidney, there is a similar-appearing partially exophytic 2 cm abnormality with Hounsfield units of 40, also concerning for complex fluid or soft tissue. There are also 2 simple cysts involving the left kidney, one of which at the inferior pole corresponds to the abnormality seen on the recent ultrasound study. There are no free or loculated fluid collections within the abdomen or pelvis. The urinary bladder is fluid distended and grossly unremarkable. Phleboliths are present within the pelvis. Uterus and ovaries appear to be absent. There are some sigmoid and transverse colonic diverticula with no evidence of acute diverticulitis. Evaluation of large and small bowel is limited by lack of oral contrast, however there is no evidence of bowel obstruction, focal bowel wall thickening, or bowel dilatation. The appendix is not definitely identified, with no CT evidence concerning for acute appendicitis. There are a few small inguinal lymph nodes bilaterally. No suspicious abdominal or pelvic masses are seen. There is mild multifocal atherosclerosis. No suspicious osteoblastic or osteolytic bone lesions are identified. There is straightening of the normal lumbar lordosis. There is an old wedge compression deformity at L1, with partial ossification of the T12-L1 disc space. IMPRESSION: 1. No CT evidence of acute abdominal or pelvic pathology. 2. Complex cystic or soft tissue abnormalities involving both kidneys as described above. These are incompletely evaluated on the current contrasted examination. Nonemergent follow-up characterization with three-phase CT scan of the abdomen or MRI of the abdomen is recommended. 3. Prior cholecystectomy. 4. Other chronic changes as described. PQRS Compliance Statement: One or more of the following individualized dose reduction techniques were utilized for this examination: 1. Automated exposure control 2. Adjustment of the mA and/or kV according to patient size 3. Use of iterative reconstruction technique Electronically signed by: Preston Guillen MD (03/27/2019 1:38 PM) [id number]
--- NOTE | 2019-03-27 13:50 | PHYS DOC ---
Past Medical History Past Medical History: Asthma, Fibromyalgia, GERD, Hypertension, Migraines, Seizure, UTI Additional Past Medical Histor: GOUT Past Surgical History: Appendectomy, Cholecystectomy, Hysterectomy Additional Past Surgical Histo: laparoscopy Alcohol Use: None Drug Use: None Adult General Chief Complaint Chief Complaint: ABDOMINAL PAIN [facility] HPI Patient is a 63-year-old female who presents with complaint of generalized abdominal pain as well as headache. Patient states that her headache is just like her typical migraines. She states that she took an Imitrex at the house but it has not helped her pain. She rates her pain at an 8 out of 10 and states that her level of pain is equal in her abdomen as well as her head. She does admit some photophobia but no phonophobia. She states that she has had some nausea as well as vomiting. She denies any diarrhea. Patient states that nothing is improving her symptoms.[] Review of Systems Review of Systems Constitutional: Denies fever or chills [] Respiratory: Denies cough or shortness of breath [] Cardiovascular: No additional information not addressed in HPI [] GI: Complains of abdominal pain with nausea and vomiting. Denies diarrhea [] Integument: Denies rash or skin lesions [] Neurologic: Complains of headache without focal weakness or sensory changes [] All other systems were reviewed and found to be within normal limits, except as documented in this note. Current Medications Current Medications Current Medications Medications (Trade) Dose Ordered Sig/[facility] Start Time Stop Time Status Last Admin Dose Admin Fentanyl Citrate (Fentanyl 2ml Vial) 50 mcg PRN Q15MIN PRN 03/27/19 11:30 03/27/19 14:45 DC 03/27/19 12:08 50 MCG Info (CONTRAST GIVEN -- Rx MONITORING) 1 each PRN DAILY PRN 03/27/19 12:45 03/27/19 14:45 DC Iohexol (Omnipaque 300 Mg/ml) 60 ml 1X ONCE 03/27/19 12:45 03/27/19 12:46 DC 03/27/19 13:01 60 ML Ketorolac Tromethamine (Toradol 15mg Vial) 15 mg 1X ONCE 03/27/19 11:30 03/27/19 11:35 DC 03/27/19 12:09 15 MG Ondansetron HCl (Zofran) 4 mg 1X ONCE 03/27/19 11:30 03/27/19 11:35 DC 03/27/19 12:08 4 MG Sodium Chloride 1,000 ml @ 1,000 mls/hr Q1H 03/27/19 11:29 03/27/19 12:28 DC 03/27/19 12:09 1,000 MLS/HR Sumatriptan Succinate (Imitrex) 6 mg 1X ONCE 03/27/19 11:30 03/27/19 11:35 DC 03/27/19 12:08 6 MG Allergies Allergies Allergies Coded Allergies Type Severity Reaction Last Updated Verified onion Allergy Intermediate 03/08/19 Yes phenytoin Allergy Intermediate rash 03/05/19 Yes Physical Exam Physical Exam Constitutional: Well developed, well nourished, appears uncomfortable, non-toxic appearance. [] HENT: Normocephalic, atraumatic, bilateral external ears normal, oropharynx moist, no oral exudates, nose normal. [] Eyes: PERRLA, EOMI, conjunctiva normal, no discharge. [] Neck: Normal range of motion, no tenderness, supple, no stridor. [] Cardiovascular: Regular rate and rhythm[] Lungs & Thorax: Bilateral breath sounds clear to auscultation [] Abdomen: Bowel sounds normal, soft, with diffuse tenderness. [] Skin: Warm, dry, no erythema, no rash. [] Extremities: No tenderness, no cyanosis, no clubbing, ROM intact. [] Neurologic: Alert and oriented X 3, no focal deficits noted. [] Current Patient Data Vital Signs Vital Signs Date Time Temp Pulse Resp B/P (MAP) Pulse Ox O2 Delivery O2 Flow Rate FiO2 03/27/19 14:27 94 16 136/63 (87) 94 Room Air 03/27/19 11:20 97.8 97.8 Lab Values Laboratory Tests Test 03/27/19 11:20 03/27/19 11:45 03/27/19 12:10 Urine Color Yellow Urine Clarity Clear Urine pH 7.5 Urine Specific [place] 1.010 Urine Protein Negative mg/dL (NEG-TRACE) Urine Glucose (UA) Negative mg/dL (NEG) Urine Ketones (Stick) Negative mg/dL (NEG) Urine Blood Negative (NEG) Urine Nitrite Negative (NEG) Urine Bilirubin Negative (NEG) Urine Urobilinogen Dipstick 0.2 mg/dL (0.2 mg/dL) Urine Leukocyte Esterase Small (NEG) Urine RBC 0 /HPF (0-2) Urine WBC 5-10 /HPF (0-4) Urine Squamous Epithelial Cells Few /LPF Urine Bacteria 0 /HPF (0-FEW) White Blood Count 12.6 x10^3/uL (4.0-11.0) H Red Blood Count 4.82 x10^6/uL (3.50-5.40) Hemoglobin 13.5 g/dL (12.0-15.5) Hematocrit 40.3 % (36.0-47.0) Mean Corpuscular Volume 84 fL (79-100) Mean Corpuscular Hemoglobin 28 pg (25-35) Mean Corpuscular Hemoglobin Concent 34 g/dL (31-37) Red Cell Distribution Width 12.7 % (11.5-14.5) Platelet Count 320 x10^3/uL (140-400) Neutrophils (%) (Auto) 82 % (31-73) H Lymphocytes (%) (Auto) 7 % (24-48) L Monocytes (%) (Auto) 11 % (0-9) H Eosinophils (%) (Auto) 1 % (0-3) Basophils (%) (Auto) 1 % (0-3) Neutrophils # (Auto) 10.3 x10^3/uL (1.8-7.7) H Lymphocytes # (Auto) 0.9 x10^3/uL (1.0-4.8) L Monocytes # (Auto) 1.3 x10^3/uL (0.0-1.1) H Eosinophils # (Auto) 0.1 x10^3/uL (0.0-0.7) Basophils # (Auto) 0.1 x10^3/uL (0.0-0.2) Sodium Level 138 mmol/L (136-145) Potassium Level 4.1 mmol/L (3.5-5.1) Chloride Level 102 mmol/L (98-107) Carbon Dioxide Level 24 mmol/L (21-32) Anion Gap 12 (6-14) Blood Urea Nitrogen 12 mg/dL (7-20) Creatinine 1.0 mg/dL (0.6-1.0) Estimated GFR (Cockcroft-Gault) 55.8 BUN/Creatinine Ratio 12 (6-20) Glucose Level 122 mg/dL (70-99) H Calcium Level 9.8 mg/dL (8.5-10.1) Total Bilirubin 1.0 mg/dL (0.2-1.0) Aspartate Amino Transferase (AST) 39 U/L (15-37) H Alanine Aminotransferase (ALT) 98 U/L (14-59) H Alkaline Phosphatase 152 U/L (46-116) H Total Protein 8.6 g/dL (6.4-8.2) H Albumin 3.6 g/dL (3.4-5.0) Albumin/Globulin Ratio 0.7 (1.0-1.7) L Lipase 54 U/L (73-393) L Laboratory Tests 03/27/19 11:45 Laboratory Tests 03/27/19 12:10 EKG EKG [] Radiology/Procedures Radiology/Procedures [] Impressions: PROCEDURE: CT ABD PELV W/ IV CONTRST ONLY CT of the abdomen and pelvis with IV contrast compared to ultrasound of the abdomen dated March 03, 2019 for abdominal pain. TECHNIQUE: Contiguous axial 5 mm images are obtained from the apex of diaphragm to the pelvic floor following a ministration of IV contrast. Sagittal and coronal reformations are evaluated. FINDINGS: There is some patchy atelectasis in the right lung base. Heart size is within normal limits. No focal hepatic parenchymal abnormalities. The pancreas, spleen, and bilateral adrenal glands are grossly unremarkable. There is been a prior cholecystectomy. There is no hydronephrosis or perinephric fluid involving either kidney. On the right, there is a 2.2 cm circumscribed hypodensity involving the anterior aspect of the superior pole the right kidney with Hounsfield units of 28 suggesting complex fluid and/or soft tissue. On the left kidney, there is a similar-appearing partially exophytic 2 cm abnormality with Hounsfield units of 40, also concerning for complex fluid or soft tissue. There are also 2 simple cysts involving the left kidney, one of which at the inferior pole corresponds to the abnormality seen on the recent ultrasound study. There are no free or loculated fluid collections within the abdomen or pelvis. The urinary bladder is fluid distended and grossly unremarkable. Phleboliths are present within the pelvis. Uterus and ovaries appear to be absent. There are some sigmoid and transverse colonic diverticula with no evidence of acute diverticulitis. Evaluation of large and small bowel is limited by lack of oral contrast, however there is no evidence of bowel obstruction, focal bowel wall thickening, or bowel dilatation. The appendix is not definitely identified, with no CT evidence concerning for acute appendicitis. There are a few small inguinal lymph nodes bilaterally. No suspicious abdominal or pelvic masses are seen. There is mild multifocal atherosclerosis. No suspicious osteoblastic or osteolytic bone lesions are identified. There is straightening of the normal lumbar lordosis. There is an old wedge compression deformity at L1, with partial ossification of the T12-L1 disc space. IMPRESSION: 1. No CT evidence of acute abdominal or pelvic pathology. 2. Complex cystic or soft tissue abnormalities involving both kidneys as described above. These are incompletely evaluated on the current contrasted examination. Nonemergent follow-up characterization with three-phase CT scan of the abdomen or MRI of the abdomen is recommended. 3. Prior cholecystectomy. 4. Other chronic changes as described. Course & Med Decision Making Course & Med Decision Making Pertinent Labs and Imaging studies reviewed. (See chart for details) [] Dragon Disclaimer Dragon Disclaimer This electronic medical record was generated, in whole or in part, using a voice recognition dictation system. Departure Departure Impression: Primary Impression: Generalized abdominal pain Additional Impression: Migraine headache Disposition: HOME, SELF-CARE Condition: STABLE Referrals: FABI FLANAGAN MD (PCP) Patient Instructions: Abdominal Pain, Migraine Headache Scripts Butalbital/Aspirin/Caffeine (FIORINAL 50-325-40 MG CAPSULE) 1 Each Capsule 1 EACH PO Q6HRS PRN for HEADACHE, #12 CAP Prov: VETO THOMAS Jr. DO 03/27/19 Ondansetron Hcl (ZOFRAN) 4 Mg Tablet 4 MG PO PRN TID PRN for NAUSEA, #15 TAB nausea/vomiting Prov: VETO THOMAS Jr. DO 03/27/19 Problem Qualifiers Additional Impression: Migraine headache Migraine type: unspecified Status migrainosus presence: without status migrainosus Intractability: not intractable Qualified Codes: G43.909 - Migraine, unspecified, not intractable, without status migrainosus VETO THOMAS Jr. DO Mar 27, 2019 13:50
[2019-03-27] MEDS ORDERED: ONDA4TAB7 PO (13:56)
[2019-03-27] MEDS ORDERED: BUTA1CAP31 PO (13:56)
[2019-03-27 14:27] VITALS: BP 136/63
== END 2019-03-27 14:28 | disposition home or self-care (01) ==
LOC: ER 11:08
DX: R10.84 Generalized abdominal pain (principal); G43.909 Migraine, unspecified, not intractable, without status migrainosus; R11.2 Nausea with vomiting, unspecified; K21.9 Gastro-esophageal reflux disease without esophagitis; I10 Essential (primary) hypertension; J45.909 Unspecified asthma, uncomplicated; Z90.89 Acquired absence of other organs; Z90.49 Acquired absence of other specified parts of digestive tract; Z90.710 Acquired absence of both cervix and uterus; Z88.8 Allergy status to other drugs, medicaments and biological substances; Z91.018 Allergy to other foods
CPT/HCPCS: 36415; 74177; 80053; 81001; 83690; 85025; 87086; 96361; 96372; 96374; 96375; 99285; J1885; J2405; J3010; J3030; J7030; Q9967

== ENCOUNTER → 2019-04-06 | Outpatient (CLI) | payer BC, OTHER ==
[2019-03-27 14:27] VITALS: BP 136/63
[~2019-04-06] MED LIST changes: +BUTA1CAP31 PO; +ONDA4TAB7 PO
--- NOTE | 2019-04-06 14:23 | RAD ---
MR#: [id number] Date of Study: 04/06/2019 Ordering Physician: WILLIE ZAVALETA, Referring Physician: JORDYN ASTUDILLO Tech: AKBAR Rachel, KATLIN (R) (N) APPROVED REPORT Test Type: Exercise Stress Nurse/Tech: Andie SAXENA Test Indications: CP Cardiac History: HTN, [place] in 2009, See EMR. Medications: See EMR. Medical History: Asthma, seziure 30 yrs ago, X-Smoker=quit 15 yrs ago, See EMR. Resting ECG: SR Resting Heart Rate: 68 bpm Resting Blood Pressure: 106/58mmHg Pretest Chest Pain: No chest pain Nurse/Tech Notes Lungs CTA, heart tones regular. Consent: The procedure was explained to the patient in lay terms. Informed consent was witnessed. Braxton eout was entered into [employer]. History and Stress Test performed by AKBAR Rachel, KATLIN (R) (N) Stress Symptoms Pt started to have chest pressure rating it a 5/10, in stage 3 peak exercise @ 01:42. The patient's chest pain increased to a 8/10 in stage R @ 00:55; she described the pain as sharp, then moving to a pressure. The patient described the pain feeling like "something is sitting there, a heaviness"; she also described being SOB. Mrs. Schaefers chest pressure and SOB decreased gradually during rest and was resolved to a 1/10 in stage R @ 06:47. Upon conclusion of the test, Mrs. Monzon felt she was well enough to go to the cafeteria and eat with family. Mary Brody notified of patient stress results and status. POST EXERCISE Reason for Termination: Reached target heart rate Target HR: Yes Max HR: 142 bpm 91% of Maximum Predicted HR: 156 bpm Exercise duration: 7:42 min:sec, 3 Stage Exercise capacity: 10.0METs Max Blood Pressure: 132/56mmHg Blood Pressure response to exercise: Normal blood pressure response during stress. Heart Rate response to exercise: WNL Chest Pain: Yes. See Stress Symptoms Note Arrhythmia: No. ST Change: No. INTERPRETATION Stress EKG Conclusion: The resting EKG shows a sinus rhythm, small septal Q waves and nonspecific ST- T wave changes. The stress EKG shows no significant changes from baseline. No EKG evidence of stressed induced ischemia. Imaging Protocol IMAGE PROTOCOL: Rest Tc-99m/stress Tc-99m 1 day Rest: Stress: Viability: Radiopharm.Tc99m VkswzebpzGh94p Sestamibi Hoou74sGw 32mCi Img Date 04/06/2019 04/06/2019 Inj-Img [id number]. 60min. Rest Admin Site:IV - Right AntecubitalAdministrator: AKBAR Rachel, ARRT (R)(N) Stress Admin Site: IV - Right AntecubitalAdministrator: AKBAR Rachel, ARRT (R)(N) STRESS DATA End Diast. Vol.52.0mlAv. Heart Rate79.0bpm End Syst. Vol.4.0mlCO Index BSA0.0L/min Myocardial Wlwd807.0gEject. Qnpucfae61.0% Stress Rates Pk. Fill Rate3.29EDV/secLVtime Pk. Fill 135.03msec Pk. Empty Rate4.99ESV/secLVtime Pk. Jkqcp177.90msec 1/3 Pk. Fill1.86EDV/sec Stress Scores Regional WT0.00Summed WT0.00 Regional WM0.00Summed WM2.00 LV Perfusion The stress scans showed no significant defects. The rest scans showed no significant defects. Nuclear imaging shows no reversible ischemia or infarct. Wall Motion Left ventricular systolic function is normal with no regional wall motion abnormalities and an ejecti on fraction of greater than 70%. LV Perf. Quant 17 Seg. SSS0.00 17 Seg. SRS0.00 17 Seg. SDS0.00 Stress Defect Extent (% LAD)0.00Rest Defect Extent (% LAD)0.00Rev. Defect Extent (% LAD)0.00 Stress Defect Extent (% LCX) 0.00Rest Defect Extent (% LCX)0.00Rev. Defect Extent (% LCX)0.00 Stress Defect Extent (% RCA)0.00Rest Defect Extent (% RCA)0.00Rev. Defect Extent (% RCA)0.00 Stress Defect Extent (% LIGIA)0.00Rest Defect Extent (% LIGIA)0.00Rev. Defect Extent (% LIGIA)0.00 Conclusion 1. Good exercise tolerance with the patient walking for 7 minutes and 42 seconds on a Phil protocol. 2. Episodes of chest discomfort with exertion. 3. No EKG evidence of stressed induced ischemia. 4. Nuclear imaging shows no reversible ischemia or infarct. 5. Left ventricular systolic function is normal with an ejection fraction of greater than 70%. 6. Moderately low risk treadmill nuclear stress test with no evidence of ischemia and a normal ejecti on fraction. Signed by : Rupert Garcia MD Electronically Approved : 04/06/2019 14:23:13
--- NOTE | 2019-04-06 14:36 | RAD ---
MR#: [id number] Date of Study: 04/06/2019 Ordering Physician: WILLIE BRODERICK, Referring Physician: WILLIE BRODERICK, Tech: Zoe Hernandez RVT,LYDIA APPROVED REPORT Patient Location: OUT-PATIENT Indications Claudication: Rest Pain: Risk Factors Hypertension Smoking VELOCITY AND DOPPLER WAVEFORM ANALYSIS RIGHT cm/secWaveformSeverity LEFT cm/secWaveform Severity pCFA pCFA 138.8Triphasic dCFA 123.1TriphasicdCFA Prof Fem Art. 100.8TriphasicProf Fem Art. 68.7Biphasic Fem Art Prox. 127.7TriphasicFem Art Prox. 129.6Biphasic Fem Art Mid. 125.9TriphasicFem Art Mid. 102.5Triphasic Fem Art Dist. 81.7TriphasicFem Art Dist. 77.8Triphasic Pop Art(Fossa) 57.4TriphasicPop Art(AK) 63.6Triphasic CHANGE MANAGEMENT ADMINISTRATOR Prox. 70.8TriphasicPTA Prox. 45.8Biphasic CHANGE MANAGEMENT ADMINISTRATOR Dist. 75.7TriphasicPTA Dist. 22.7Biphasic Per Art Dist.40.9BiphasicPer Art Dist.33.3Biphasic KOURTNEY Dist. 43.0BiphasicATA Dist. 97.6Triphasic DPA 60TriphasicDPA 65Triphasic Findings Grayscale images of the lower extremity arterial vessels reveals mild to moderate diffuse plaque. No significant velocity acceleration is noted. There is three-vessel runoff below the knee. Triphasic and biphasic waveforms throughout. Critical Notification Critical Value: No <Conclusion> No significant lower extremity arterial disease. Signed by : Willie Broderick, Electronically Approved : 04/06/2019 14:36:07
== END | disposition home or self-care (01) ==
LOC: NM 09:05
PROVIDERS: ATTEND Internal Medicine Cardiovascular Disease
DX: I70.293 Other atherosclerosis of native arteries of extremities, bilateral legs (principal); R07.89 Other chest pain; I10 Essential (primary) hypertension; I25.2 Old myocardial infarction; J45.909 Unspecified asthma, uncomplicated; Z87.891 Personal history of nicotine dependence
CPT/HCPCS: 78452; 93017; 93923; A9500

== ENCOUNTER → 2019-04-16 | Outpatient (CLI) | payer BC, OTHER ==
[~2019-04-16] MED LIST changes: +CIPR500T PO; +LIDO700A21 TD; +METO25TA4 PO; +PHEN-318 PO
[2019-04-16 11:00] VITALS: BP 123/64
--- NOTE | 2019-04-17 10:05 | SLEEP ---
DATE OF STUDY: 04/17/2019 REFERRING PHYSICIAN: Willie Broderick M.D. PRIMARY CARE PHYSICIAN: Dr. Brea Patel. HISTORY OF PRESENT ILLNESS: The patient is a 63-year-old who weighs 169 pounds with a BMI of 27. The patient's Hobart score was 13. The patient underwent a diagnostic sleep study performed at [facility]. Review of the medications also reveals gabapentin and Ambien. During the night study, the patient spent 416 minutes in bed and slept for 346 minutes with a sleep efficiency of 83%. Sleep latency was 25 minutes with a REM latency of 258 minutes. Sleep architecture showed normal stage 1 and stage 2 sleep, increased slow wave, and reduced REM sleep. During the night study, the patient had 2 obstructive apneas, 2 mixed and no central apneas. There were 33 hypopneas. The patient's apnea-hypopnea index was 6 per hour with a supine index of 8 per hour and a REM index of 4 per hour. Nocturnal oximetry study revealed a mean oxygen saturation of 96% with the lowest of 80%, 28% of the time oxygen saturation remained between 80% and 89% suggesting a component of hypoventilation. Mostly saturations were between 87-89%. EKG monitoring revealed normal sinus rhythm, average heart rate 71 beats per minute, no arrhythmias observed. No significant PLM was seen. Due to low AHI, the patient did not meet the split night criteria for CPAP initiation. IMPRESSION: 1. Mild sleep apnea-hypopnea syndrome at an AHI of 6 per hour. 2. Mild nocturnal hypoxia suggestive of hypoventilation. 3. No clinically significant periodic limb movements. RECOMMENDATIONS: 1. The patient has subjective hypersomnia with an Hobart score of 13. The patient's sleep apnea is mild. Consider treatment of sleep apnea with either CPAP versus oral appliance as recommended by the dentist. 2. Minimize the use of sedative medications. 3. Caution regarding driving until the patient's hypersomnia has resolved. AMADOU SANTOS MD DR: VIRGIL/kenrick JOB#: [id number] / [id number] WILLIE Rm MD, Margaret M.D.
== END | disposition home or self-care (01) ==
LOC: SLPLAB 18:52
PROVIDERS: ATTEND Internal Medicine Pulmonary Disease
DX: G47.33 Obstructive sleep apnea (adult) (pediatric) (principal); R09.02 Hypoxemia
CPT/HCPCS: 95810

== ENCOUNTER → 2019-05-03 | Outpatient (CLI) | payer BC, OTHER ==
[2019-04-16 11:00] VITALS: BP 123/64
--- NOTE | 2019-05-03 14:35 | RAD ---
EXAM: Chest CT without intravenous contrast. HISTORY: Lung mass. TECHNIQUE: Computed tomographic images of the chest were obtained without contrast. Multiplanar reformatting was performed. *One or more of the following individualized dose reduction techniques were utilized for this examination: 1. Automated exposure control. 2. Adjustment of the mA and/or kV according to patient size. 3. Use of iterative reconstruction technique. COMPARISON: 03/02/2019. FINDINGS: There has been resolution of previously demonstrated right superhilar and left lower lobe pulmonary masses and nodular opacity within the posterior right lower lobe. There is no pneumothorax or pleural effusion. The heart is normal in size. The aorta is normal in caliber. There are multiple tiny bilateral pulmonary nodules, the largest of which measure 4 mm. These are not appreciably changed. There is posterior dependent and basilar atelectasis. There has been slight interval decrease in a right paratracheal lymph node, allowing for differences in slice position and measurement technique. There is no acute finding involving the upper abdomen. There is no suspicious osseous lesion. IMPRESSION: 1. Resolution of previously demonstrated pulmonary masslike opacities, favoring an infectious or inflammatory etiology. 2. Stable multiple tiny noncalcified pulmonary nodules, the largest of which measure 4 mm. Follow up according to Fleischner Society criteria. Fleischner Society recommendations (Radiology 2017): SOLID NODULES Multiple solid nodules <6 mm - low-risk patient: no routine follow-up required - high-risk patient: optional CT at 12 months Electronically signed by: Patricia Milian MD (05/03/2019 2:31 PM) [id number]
== END | disposition home or self-care (01) ==
LOC: CT 11:09
PROVIDERS: ATTEND Internal Medicine Critical Care Medicine
DX: J98.11 Atelectasis (principal); R91.8 Other nonspecific abnormal finding of lung field
CPT/HCPCS: 71250

== ENCOUNTER 2019-05-17 16:55 | Emergency (ER) | payer BC, OTHER ==
[~2019-05-17] VITALS: Ht 170.2 cm; Wt 78.5 kg
[2019-05-17] MEDS ORDERED: IV NORMAL SALINE 500ML BAG 500 ML IV ONE (17:30)
--- NOTE | 2019-05-17 17:33 | PHYS DOC ---
Past Medical History Past Medical History: Arthritis, Asthma, Fibromyalgia, GERD, Hypertension, Migraines, Pneumonia, Seizure, UTI Additional Past Medical Histor: GOUT Past Surgical History: Appendectomy, Cholecystectomy, Hysterectomy Additional Past Surgical Histo: laparoscopy Alcohol Use: None Drug Use: None Adult General Chief Complaint Chief Complaint: SHORTNESS OF BREATH HPI HPI Patient is a 64 year old female who presents with cough, shortness of breath, chest pain that started yesterday morning. The patient also states she's had associated symptoms of dizziness, sneezing, and feeling hot and cold. The patient rates her pain as 5 out of 10 in severity and sharp. She states she feels like something is sitting on her chest and squeezing from her chest or back. The patient does have a history of heart attacks, and hypertension. Review of Systems Review of Systems Constitutional: Reports fever or chills [] Eyes: Denies change in visual acuity, redness, or eye pain [] HENT: Reports sneezing. Respiratory: Reports cough, and shortness of breath. Cardiovascular: No additional information not addressed in HPI [] GI: Denies abdominal pain, nausea, vomiting, bloody stools or diarrhea [] : Denies dysuria or hematuria [] Musculoskeletal: Denies back pain or joint pain [] Integument: Denies rash or skin lesions [] Neurologic: Reports dizziness. Denies headache, focal weakness or sensory changes [] Endocrine: Denies polyuria or polydipsia [] Complete systems were reviewed and found to be within normal limits, except as documented in this note. Current Medications Current Medications Current Medications Medications (Trade) Dose Ordered Sig/[facility] Start Time Stop Time Status Last Admin Dose Admin Morphine Sulfate (Morphine Sulfate) 2 mg PRN Q2HR PRN 05/17/19 20:15 05/18/19 20:14 Nitroglycerin (Nitrostat) 0.4 mg PRN Q5MIN PRN 05/17/19 20:15 05/18/19 20:14 Ondansetron HCl (Zofran) 4 mg PRN Q8HRS PRN 05/17/19 20:15 05/18/19 20:14 Sodium Chloride 500 ml @ 500 mls/hr 1X ONCE 05/17/19 17:30 05/17/19 18:29 DC 05/17/19 18:19 500 MLS/HR Allergies Allergies Allergies Coded Allergies Type Severity Reaction Last Updated Verified onion Allergy Intermediate 03/08/19 Yes phenytoin Allergy Intermediate rash 03/05/19 Yes Physical Exam Physical Exam Constitutional: Well developed, well nourished, no acute distress, non-toxic appearance. [] HENT: Normocephalic, atraumatic, bilateral external ears normal, oropharynx moist, no oral exudates, nose normal. [] Eyes: PERRLA, EOMI, conjunctiva normal, no discharge. [] Neck: Normal range of motion, no tenderness, supple, no stridor. [] Cardiovascular:Heart rate regular rhythm, no murmur [] Lungs & Thorax: Bilateral breath sounds clear to auscultation [] Abdomen: Bowel sounds normal, soft, no tenderness, no masses, no pulsatile masses. [] Skin: Warm, dry, no erythema, no rash. [] Neurologic: Alert and oriented X 3, normal motor function, normal sensory function, no focal deficits noted. [] Psychologic: Affect normal, judgement normal, mood normal. [] Current Patient Data Vital Signs Vital Signs Date Time Temp Pulse Resp B/P (MAP) Pulse Ox O2 Delivery O2 Flow Rate FiO2 05/17/19 17:04 97.9 60 17 154/71 (98) 100 Room Air 97.9 Lab Values Laboratory Tests Test 05/17/19 17:37 05/17/19 17:39 05/17/19 17:40 White Blood Count 7.0 x10^3/uL (4.0-11.0) Red Blood Count 4.18 x10^6/uL (3.50-5.40) Hemoglobin 11.8 g/dL (12.0-15.5) L Hematocrit 35.5 % (36.0-47.0) L Mean Corpuscular Volume 85 fL (79-100) Mean Corpuscular Hemoglobin 28 pg (25-35) Mean Corpuscular Hemoglobin Concent 33 g/dL (31-37) Red Cell Distribution Width 14.2 % (11.5-14.5) Platelet Count 332 x10^3/uL (140-400) Neutrophils (%) (Auto) 55 % (31-73) Lymphocytes (%) (Auto) 31 % (24-48) Monocytes (%) (Auto) 8 % (0-9) Eosinophils (%) (Auto) 4 % (0-3) H Basophils (%) (Auto) 1 % (0-3) Neutrophils # (Auto) 3.9 x10^3/uL (1.8-7.7) Lymphocytes # (Auto) 2.2 x10^3/uL (1.0-4.8) Monocytes # (Auto) 0.6 x10^3/uL (0.0-1.1) Eosinophils # (Auto) 0.3 x10^3/uL (0.0-0.7) Basophils # (Auto) 0.1 x10^3/uL (0.0-0.2) Sodium Level 142 mmol/L (136-145) Potassium Level 3.8 mmol/L (3.5-5.1) Chloride Level 104 mmol/L (98-107) Carbon Dioxide Level 29 mmol/L (21-32) Anion Gap 9 (6-14) Blood Urea Nitrogen 17 mg/dL (7-20) Creatinine 0.8 mg/dL (0.6-1.0) Estimated GFR (Cockcroft-Gault) 72.0 BUN/Creatinine Ratio 21 (6-20) H Glucose Level 96 mg/dL (70-99) Calcium Level 9.4 mg/dL (8.5-10.1) Total Bilirubin 0.2 mg/dL (0.2-1.0) Aspartate Amino Transferase (AST) 18 U/L (15-37) Alanine Aminotransferase (ALT) 28 U/L (14-59) Alkaline Phosphatase 93 U/L (46-116) Troponin I Quantitative < 0.017 ng/mL (0.000-0.055) Total Protein 8.0 g/dL (6.4-8.2) Albumin 4.0 g/dL (3.4-5.0) Albumin/Globulin Ratio 1.0 (1.0-1.7) Procalcitonin < 0.10 ng/mL (0.00-0.10) Influenza Type A Antigen Negative (NEGATIVE) Influenza Type B Antigen Negative (NEGATIVE) Urine Collection Type Void Urine Color Yellow Urine Clarity Clear Urine pH 6.0 Urine Specific [place] <=1.005 Urine Protein Negative mg/dL (NEG-TRACE) Urine Glucose (UA) Negative mg/dL (NEG) Urine Ketones (Stick) Negative mg/dL (NEG) Urine Blood Negative (NEG) Urine Nitrite Negative (NEG) Urine Bilirubin Negative (NEG) Urine Urobilinogen Dipstick 0.2 mg/dL (0.2 mg/dL) Urine Leukocyte Esterase Trace (NEG) Urine RBC 0 /HPF (0-2) Urine WBC Occ /HPF (0-4) Urine Squamous Epithelial Cells Occ /LPF Urine Bacteria Few /HPF (0-FEW) Laboratory Tests 05/17/19 17:37 Laboratory Tests 05/17/19 17:37 EKG EKG EKG interpreted by Dr. Montoya Sinus with rate of 57, left madrid axis, NO STEMI.[] Radiology/Procedures Radiology/Procedures [][facility] [address] [place] [address] IMAGING REPORT Signed PATIENT: EDAURDO TORRES LACCOUNT: [id number] : 1955 LOCATION: ER AGE: 64 SEX: F EXAM STATUS: REG ER ORD. PHYSICIAN: SULEMAN SAHA APRN REASON: sob, cp PROCEDURE: CHEST PA & LATERAL Exam: Chest 2 views INDICATION: Shortness of breath TECHNIQUE: Frontal and lateral views of the chest Comparisons: 04/14/2019 FINDINGS: The cardiomediastinal silhouette and pulmonary vessels are within normal limits. The lung and pleural spaces are clear. IMPRESSION: No acute cardiopulmonary process. Electronically signed by: Eileen Larkin MD (05/17/2019 6:21 PM) [facility] DICTATED and SIGNED BY: EILEEN LARKIN MD DATE: 05/17/191820 Course & Med Decision Making Course & Med Decision Making Pertinent Labs and Imaging studies reviewed. (See chart for details) Will get Flu test, labs, ua, chest x-ray, ekg. Labs are unremarkable. Will admit to hospital due to chest pain for more workup. Discussed with hospitalist who accepts admission to hospital ([facility]) at 1951. After discussed with Dr. Magdaleno she came and saw patient in the ER. The patient elected not to be admitted to the hospital and decided to go home. Risk were discussed with patient. Due to decision the patient that she does not want stay. Will discharge the patient from the ER and cancel admission. Dragon Disclaimer Dragon Disclaimer This electronic medical record was generated, in whole or in part, using a voice recognition dictation system. Departure Departure Impression: Primary Impression: Chest pain Disposition: 01 HOME, SELF-CARE Admitting Physician: RASTA Condition: STABLE Referrals: FABI FLANAGAN MD (PCP) Patient Instructions: Chest Pain (Nonspecific) Additional Instructions: Thank you for visiting [facility]. We appreciate you trusting us with your care. If any additional problems come up don't hesitate to return to visit us. Please follow up with your primary care provider so they can plan additional care if needed and know about the problem that you had. If symptoms worsen come back to the Emergency Department. Any concerning symptoms that start such as chest pain, shortness of air, weakness or numbness on one side of the body, running high fevers or any other concerning symptoms return to the ER. The HEART Score for CP Pts HEART Score for Chest Pain: HEART Score for Chest Pain Response (Comments) Value History Highly Suspicious 2 ECG Normal 0 Age > 65 2 Risk Factors >3 Risk Factors or Hx CAD 2 Troponin < Normal Limit 0 Total 6 Risk Factors: Risk Factors: DM, Current or recent (<one month) smoker, HTN, HLP, family history of CAD, obesity. Risk Scores: Score 0 - 3: 2.5% MACE over next 6 weeks - Discharge Home Score 4 - 6: 20.3% MACE over next 6 weeks - Admit for Clinical Observation Score 7 - 10: 72.7% MACE over next 6 weeks - Early Invasive Strategies SULEMAN SAHA APRN May 17, 2019 17:33
[2019-05-17 17:51] LABS: BASO # 0.1 x10^3/uL (0.0-0.2); BASO % 1 % (0-3); EOS # 0.3 x10^3/uL (0.0-0.7); EOS % 4 % (0-3); HEMATOCRIT 35.5 % (36.0-47.0); HEMOGLOBIN 11.8 g/dL (12.0-15.5); LYMPH # 2.2 x10^3/uL (1.0-4.8); LYMPH % 31 % (24-48); MEAN CORPUSCULAR HEMOGLOBIN 28 pg (25-35); MEAN CORPUSCULAR HGB CONC 33 g/dL (31-37); MEAN CORPUSCULAR VOLUME 85 fL (79-100); MONO # 0.6 x10^3/uL (0.0-1.1); MONO % 8 % (0-9); NEUT # 3.9 x10^3/uL (1.8-7.7); NEUT % 55 % (31-73); PLATELET COUNT 332 x10^3/uL (140-400); RED BLOOD COUNT 4.18 x10^6/uL (3.50-5.40); RED CELL DISTRIBUTION WIDTH 14.2 % (11.5-14.5)
[2019-05-17 17:54] LABS: BILIRUBIN,URINE NEGATIVE (NEG); CLARITY,URINE CLEAR; COLOR,URINE YELLOW; NITRITE,URINE NEGATIVE (NEG); PROTEIN,URINE NEGATIVE (NEG-TRACE); UROBILINOGEN,URINE 0.2 mg/dL (0.2 mg/dL)
[2019-05-17 17:59] LABS: CALCIUM 9.4 mg/dL (8.5-10.1); CREATININE 0.8 mg/dL (0.6-1.0); POTASSIUM 3.8 mmol/L (3.5-5.1)
[2019-05-17 18:02] LABS: BACTERIA,URINE FEW /HPF (0-FEW); RBC,URINE 0 /HPF (0-2); SQUAMOUS EPITHELIAL CELL,UR OCC /LPF; WBC,URINE OCC /HPF (0-4)
[2019-05-17 18:04] LABS: TOTAL BILIRUBIN 0.2 mg/dL (0.2-1.0)
[2019-05-17 18:10] LABS: INFLUENZA A PATIENT NEGATIVE (NEGATIVE); INFLUENZA B PATIENT NEGATIVE (NEGATIVE)
--- NOTE | 2019-05-17 18:20 | EKG ---
[facility] [address] [place] [address] Test Date: 2019-05-17 Test Time: 17:11:36 Pat Name: EDUARDO TORRES Department: Room: Gender: F Clerk To Justice: : 1955 Requested By: SULEMAN SAHA Order Number: [id number] Reading MD: Measurements Intervals [place] Rate: 57 P: 32 AR: 210 QRS: -19 QRSD: 78 T: 34 QT: 396 QTc: 388 Interpretive Statements SINUS RHYTHM LEFTWARD AXIS CONSIDER RIGHT VENTRICULAR HYPERTROPHY QRS(T) CONTOUR ABNORMALITY CONSISTENT WITH SEPTAL INFARCT AGE UNDETERMINED ABNORMAL ECG RI6.01 No previous ECG available for comparison
--- NOTE | 2019-05-17 18:24 | RAD ---
Exam: Chest 2 views INDICATION: Shortness of breath TECHNIQUE: Frontal and lateral views of the chest Comparisons: 04/14/2019 FINDINGS: The cardiomediastinal silhouette and pulmonary vessels are within normal limits. The lung and pleural spaces are clear. IMPRESSION: No acute cardiopulmonary process. Electronically signed by: Eileen Perez MD (05/17/2019 6:21 PM) [facility]
[2019-05-17] MEDS ORDERED: MORPHINE SULFATE 2 MG/ML VIAL. IV PRN (20:15)
[2019-05-17] MEDS ORDERED: ONDANSETRON PF 4 MG/2 ML VIAL. IV PRN (20:15)
[2019-05-17] MEDS ORDERED: NITROGLYCERIN SUBLINGUAL 0.4 MG BOTTLE OF 25. SL PRN (20:15)
[2019-05-17 20:30] VITALS: BP 143/67
--- NOTE | 2019-05-17 21:17 | PDOC ---
Provider Note Provider Note I was called to Admit MS lacey for CP r.o ACS I see her tonight with at ER at bedside SHe was sent by PCP dr Garrido to get a CXR for concerns of PNA as she has been having cough dry, and pleuritic CP with it plus sensation of sternal chest burning like when she takes nyquil,. SHe just had an MPI 2 mos ago, seen by her cards and was cleared cardiac aguillon, HEr ER labs and CXR are read as normal and i presented those facts/findings SHe would rather be dcd, as unlikely her heart and is willing to try OTC PPI and tums, maalox etc to relieve her chest sxs. HEr cxr is normal and there is no PNA so no abx is warranted Dw ER [facility] and pt was subseq discharged after i saw her at ER Past medical: HTN, recent MPI 2 mos ago neg Allergies: onion, phenytoin PE WNL Fam HX non contributory: PAst sx A/P: Chest dc likely gerd, could be pleurisy from coughing, her CXR is neg for PNA OK for home, OTC meds FF up PCP Dr Patel NO PNA JAMEL HUBBARD MD May 17, 2019 21:17
== END 2019-05-17 20:49 | disposition home or self-care (01) ==
LOC: ER 16:55
DX: R07.89 Other chest pain (principal); R42 Dizziness and giddiness; R50.9 Fever, unspecified; R06.02 Shortness of breath; M19.90 Unspecified osteoarthritis, unspecified site; J45.909 Unspecified asthma, uncomplicated; K21.9 Gastro-esophageal reflux disease without esophagitis; M79.7 Fibromyalgia; I10 Essential (primary) hypertension; G43.909 Migraine, unspecified, not intractable, without status migrainosus; Z90.89 Acquired absence of other organs; Z90.49 Acquired absence of other specified parts of digestive tract; Z90.710 Acquired absence of both cervix and uterus; Z98.890 Other specified postprocedural states; Z91.018 Allergy to other foods; Z88.2 Allergy status to sulfonamides
CPT/HCPCS: 36415; 71046; 80053; 81001; 84145; 84484; 85025; 87086; 87804; 93005; 96360; 99285; J7040

== ENCOUNTER → 2019-08-06 | Outpatient (CLI) | payer BC, OTHER ==
--- NOTE | 2019-08-06 16:32 | KCIC ---
EXAM: AP, oblique and lateral views of the right foot DATE: 08/06/2019 12:00 AM INDICATION: Right foot pain and swelling post twisting injury COMPARISON: No Prior FINDINGS: No evidence of acute fracture or dislocation. Mild [place] fat pad edema is seen. Type II accessory navicular joint spaces are preserved without significant degenerative/proliferative change. Calcaneal enthesopathy. IMPRESSION: 1. No evidence of acute fracture or dislocation. 2. Calcaneal enthesopathy. 3. Mild [place] fat pad edema is seen. Electronically signed by: Jet Viera MD (08/06/2019 4:29 PM) [id number]
== END | disposition home or self-care (01) ==
LOC: KCIC 15:36
PROVIDERS: ATTEND Nurse Practitioner Gerontology
DX: M77.31 Calcaneal spur, right foot (principal); M79.4 Hypertrophy of (infrapatellar) fat pad; R60.0 Localized edema
CPT/HCPCS: 73630

== ENCOUNTER 2019-08-23 16:28 | Inpatient (IN) | payer BC, OTHER ==
[~2019-08-23] VITALS: Ht 172.7 cm; Wt 69.3 kg
[2019-08-23] MEDS ORDERED: IV NORMAL SALINE 1000ML BAG 1,000 ML IV SCH (17:11)
[2019-08-23 17:31] LABS: BASO % 0 % (0-3); EOS % 0 % (0-3); HEMATOCRIT 40.1 % (36.0-47.0); HEMOGLOBIN 13.6 g/dL (12.0-15.5); LYMPH # 0.8 x10^3/uL (1.0-4.8); LYMPH % 10 % (24-48); MEAN CORPUSCULAR HEMOGLOBIN 29 pg (25-35); MEAN CORPUSCULAR HGB CONC 34 g/dL (31-37); MEAN CORPUSCULAR VOLUME 84 fL (79-100); MONO # 0.8 x10^3/uL (0.0-1.1); MONO % 10 % (0-9); NEUT % 79 % (31-73); PLATELET COUNT 243 x10^3/uL (140-400); RED BLOOD COUNT 4.75 x10^6/uL (3.50-5.40); RED CELL DISTRIBUTION WIDTH 13.1 % (11.5-14.5); WHITE BLOOD COUNT 7.6 x10^3/uL (4.0-11.0)
[2019-08-23 17:39] LABS: PROTHROMBIN TIME PATIENT 12.4 SEC (11.7-14.0)
[2019-08-23 17:43] LABS: CREATININE 1.9 mg/dL (0.6-1.0); GFR 26.5; POTASSIUM 5.1 mmol/L (3.5-5.1)
[2019-08-23 17:49] LABS: ALBUMIN 2.8 g/dL (3.4-5.0); ALBUMIN/GLOBULIN RATIO 0.6 (1.0-1.7); MAGNESIUM 2.1 mg/dL (1.8-2.4); TOTAL BILIRUBIN 0.4 mg/dL (0.2-1.0); TOTAL PROTEIN 7.6 g/dL (6.4-8.2)
--- NOTE | 2019-08-23 18:06 | PHYS DOC ---
Past Medical History Past Medical History: Anxiety, Arthritis, Asthma, Fibromyalgia, GERD, Hypertension, IBS, Migraines, Pneumonia, Seizure, UTI Additional Past Medical Histor: GOUT, OSTEOPOROSIS (WILLIS LOCK MD) Past Surgical History: Appendectomy, Cholecystectomy, Hysterectomy Additional Past Surgical Histo: laparoscopy (WILLIS LOCK MD) Smoking Status: Former Smoker Alcohol Use: None Drug Use: None (WILLIS LOCK MD) Adult General Chief Complaint Chief Complaint: COUGH HPI HPI Patient is a 64 year old female with history of hypertension, seizure, fibromyalgia, arthritis, asthma, gout, sepsis, pneumonia, migraine, anxiety, osteoarthritis who presents with complaint of right chest pain. Patient co mplaining of intermittent episodes of right lower chest pain for 2 weeks as a sharp pain without radiation that gradually getting more constant and rated her pain 8/10 that getting worse with taking deep breaths. Patient complaining of shortness of breath and cough that getting productive today with yellow sputum. Patient states she had fever up to 103 the last 2 weeks intermittently but did not have fever at arrival to ER. Patient denies diarrhea and constipation, urinary symptoms, focal neuro deficit, sick contact, sore throat, left-sided chest pain. (WILLIS LOCK MD) Review of Systems Review of Systems Constitutional: Reports fever and weakness Eyes: Denies change in visual acuity, redness, or eye pain [] HENT: Denies nasal congestion or sore throat [] Respiratory: Reports cough and shortness of breath Cardiovascular: No additional information not addressed in HPI [] GI: Denies abdominal pain, nausea, vomiting, bloody stools or diarrhea [] : Denies dysuria or hematuria [] Musculoskeletal: Denies back pain or joint pain [] Integument: Denies rash or skin lesions [] Neurologic: Denies headache, focal weakness or sensory changes [] Endocrine: Denies polyuria or polydipsia [] All other systems were reviewed and found to be within normal limits, except as documented in this note. (WILLIS LOCK MD) Current Medications Current Medications Current Medications Medications (Trade) Dose Ordered Sig/[facility] Start Time Stop Time Status Last Admin Dose Admin Sodium Chloride 1,000 ml @ 1,000 mls/hr Q1H 08/23/19 17:11 08/23/19 18:10 DC 08/23/19 17:20 1,000 MLS/HR (KATIUSKA HOPE MD) Allergies Allergies Allergies Coded Allergies Type Severity Reaction Last Updated Verified onion Allergy Intermediate 03/08/19 Yes phenytoin Allergy Intermediate rash 03/05/19 Yes (KATIUSKA HOPE MD) Physical Exam Physical Exam Constitutional: Well developed, well nourished, mild distress, non-toxic appearance. [] HENT: Normocephalic, atraumatic, dry oral mucosa. Eyes: PERRLA, EOMI, conjunctiva normal, no discharge. [] Neck: Normal range of motion, no tenderness, supple, no stridor. [] Cardiovascular:Heart rate regular rhythm, no murmur [] Lungs & Thorax: Bilateral breath sounds clear to auscultation [, right side chest wall tenderness] Abdomen: Bowel sounds normal, soft, no tenderness, no masses, no pulsatile masses. [] Skin: Warm, dry, no erythema, no rash. [] Back: No tenderness, no CVA tenderness. [] Extremities: No tenderness, no cyanosis, no clubbing, ROM intact, no edema. [] Neurologic: Alert and oriented X 3, no focal deficits noted. [] Psychologic: Affect normal, judgement normal, mood normal. [] (WILLIS LOCK MD) Current Patient Data Vital Signs Vital Signs Date Time Temp Pulse Resp B/P (MAP) Pulse Ox O2 Delivery O2 Flow Rate FiO2 08/23/19 18:31 67 83/47 (59) 91 Nasal Cannula 4.0 08/23/19 16:47 98.5 18 98.5 (KATIUSKA HOPE MD) Lab Values Laboratory Tests Test 08/23/19 17:10 08/23/19 17:53 White Blood Count 7.6 x10^3/uL (4.0-11.0) Red Blood Count 4.75 x10^6/uL (3.50-5.40) Hemoglobin 13.6 g/dL (12.0-15.5) Hematocrit 40.1 % (36.0-47.0) Mean Corpuscular Volume 84 fL (79-100) Mean Corpuscular Hemoglobin 29 pg (25-35) Mean Corpuscular Hemoglobin Concent 34 g/dL (31-37) Red Cell Distribution Width 13.1 % (11.5-14.5) Platelet Count 243 x10^3/uL (140-400) Neutrophils (%) (Auto) 79 % (31-73) H Lymphocytes (%) (Auto) 10 % (24-48) L Monocytes (%) (Auto) 10 % (0-9) H Eosinophils (%) (Auto) 0 % (0-3) Basophils (%) (Auto) 0 % (0-3) Neutrophils # (Auto) 6.0 x10^3/uL (1.8-7.7) Lymphocytes # (Auto) 0.8 x10^3/uL (1.0-4.8) L Monocytes # (Auto) 0.8 x10^3/uL (0.0-1.1) Eosinophils # (Auto) 0.0 x10^3/uL (0.0-0.7) Basophils # (Auto) 0.0 x10^3/uL (0.0-0.2) Prothrombin Time 12.4 SEC (11.7-14.0) Prothrombin Time INR 1.0 (0.8-1.1) D-Dimer (Stefanie) 0.46 ug/mlFEU (0.00-0.50) Sodium Level 136 mmol/L (136-145) Potassium Level 5.1 mmol/L (3.5-5.1) Chloride Level 101 mmol/L (98-107) Carbon Dioxide Level 22 mmol/L (21-32) Anion Gap 13 (6-14) Blood Urea Nitrogen 30 mg/dL (7-20) H Creatinine 1.9 mg/dL (0.6-1.0) H Estimated GFR (Cockcroft-Gault) 26.5 BUN/Creatinine Ratio 16 (6-20) Glucose Level 96 mg/dL (70-99) Lactic Acid Level 1.1 mmol/L (0.4-2.0) Calcium Level 9.0 mg/dL (8.5-10.1) Magnesium Level 2.1 mg/dL (1.8-2.4) Total Bilirubin 0.4 mg/dL (0.2-1.0) Aspartate Amino Transferase (AST) 31 U/L (15-37) Alanine Aminotransferase (ALT) 31 U/L (14-59) Alkaline Phosphatase 116 U/L (46-116) Creatine Kinase 35 U/L (26-192) Troponin I Quantitative < 0.017 ng/mL (0.000-0.055) AF-Qdd-F-Type Natriuretic Peptide 257 pg/mL (0-124) H Total Protein 7.6 g/dL (6.4-8.2) Albumin 2.8 g/dL (3.4-5.0) L Albumin/Globulin Ratio 0.6 (1.0-1.7) L Lipase 103 U/L (73-393) Influenza Type A Antigen Negative (NEGATIVE) Influenza Type B Antigen Negative (NEGATIVE) Laboratory Tests 08/23/19 17:10 Laboratory Tests 08/23/19 17:10 (KATIUSKA HOPE MD) EKG EKG EKG interpreted by me. EKG at 1726 showed normal sinus rhythm at rate of 67, leftward axis, right ventricular hypertrophy, normal MT and QT intervals, no acute ST and T wave elevation. (WILLIS LOCK MD) Radiology/Procedures Radiology/Procedures [] (WILLIS LOCK MD) Radiology/Procedures [facility] [address] [place], [place] [id number] IMAGING REPORT Signed PATIENT: EDUARDO TORRES LACCOUNT: [id number] : 1955 LOCATION: ER AGE: 64 SEX: F EXAM STATUS: REG ER ORD. PHYSICIAN: WILLIS LOCK MD REASON: Shortness of breath and hypotension PROCEDURE: PORTABLE CHEST 1V Exam: Chest one view INDICATION: Shortness of breath TECHNIQUE: Frontal view of the chest Comparisons: 05/17/2019 FINDINGS: The cardiomediastinal silhouette and pulmonary vessels are within normal limits. Subtle patchy bilateral airspace disease is noted. No pleural effusion. IMPRESSION: Subtle patchy bilateral airspace disease Electronically signed by: Eileen Larkin MD (08/23/2019 7:02 PM) [id number] DICTATED and SIGNED BY: EILEEN LARKIN MD DATE: 08/23/191901 (KATIUSKA HOPE MD) Course & Med Decision Making Course & Med Decision Making Pertinent Labs and Imaging studies are pending. Evaluation of patient inertial 64-year-old female patient with complaining of intermittent episodes of right-sided chest pain that getting more constant with shortness of breath and cough and fever. Patient was afebrile at arrival to ER without tachycardia but had blood pressure of 80s over 60s with dry oral mucosa and IV fluids was a started. Labs and chest x-ray is pending. Sign out given to at 1800 for further evaluation and final disposition. Discussed current findings and plan with patient and family, who acknowledge understanding and agreement. (WILLIS LOCK MD) Course & Med Decision Making Labs/Imaging reviewed - given hypoxia, SOB, abnormal chest xray will admit (KATIUSKA HOPE MD) Dragon Disclaimer Dragon Disclaimer This electronic medical record was generated, in whole or in part, using a voice recognition dictation system. (WILLIS LOCK MD) Departure Departure Impression: Primary Impression: Suspected 2019-nCoV infection Additional Impressions: Right-sided chest pain Hypoxia Hypotension Disposition: 09 ADMITTED INPATIENT Admitting Physician: RASTA (KATIUSKA HOPE MD) Condition: STABLE Referrals: FABI FLANAGAN MD (PCP) Problem Qualifiers Additional Impressions: Hypotension Hypotension type: unspecified hypotension type Qualified Codes: I95.9 - Hypotension, unspecified WILLIS LOCK MD Aug 23, 2019 18:06 KATIUSKA HOPE MD Aug 23, 2019 19:19
[2019-08-23 18:22] LABS: INFLUENZA A PATIENT NEGATIVE (NEGATIVE); INFLUENZA B PATIENT NEGATIVE (NEGATIVE)
--- NOTE | 2019-08-23 19:05 | RAD ---
Exam: Chest one view INDICATION: Shortness of breath TECHNIQUE: Frontal view of the chest Comparisons: 05/17/2019 FINDINGS: The cardiomediastinal silhouette and pulmonary vessels are within normal limits. Subtle patchy bilateral airspace disease is noted. No pleural effusion. IMPRESSION: Subtle patchy bilateral airspace disease Electronically signed by: Eileen Perez MD (08/23/2019 7:02 PM) [id number]
[2019-08-23] MEDS ORDERED: ONDANSETRON PF 4 MG/2 ML VIAL. IV PRN (20:00)
[2019-08-23] MEDS ORDERED: ACETAMINOPHEN 325 MG TABLET. PO PRN (20:00)
[2019-08-23] MEDS ORDERED: MORPHINE SULFATE 2 MG/ML VIAL. IV PRN (20:00)
[2019-08-23] MEDS ORDERED: IV NORMAL SALINE 1000ML BAG 1,000 ML IV ONE ×2 (20:15→20:30)
--- NOTE | 2019-08-23 21:13 | EKG ---
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
[2019-08-23 23:34] VITALS: BP 107/62
[2019-08-24] VITALS (12 sets, daily range): BP systolic 96–162; BP diastolic 46–76
[2019-08-24] MEDS ORDERED: ZOLPIDEM 5 MG TABLET. PO PRN (00:45)
[2019-08-24] MEDS: IV NORMAL SALINE 1000ML BAG 1,000 ML IV SCH ×3 (03:29→20:00)
[2019-08-24] MEDS: traMADol 50 MG TABLET PO SCH ×2 (08:31→19:54)
--- NOTE | 2019-08-24 09:38 | PDOC1 ---
History and Physical Date of Admission Date of Admission DATE: 08/24/19 TIME: 09:36 Identification/Chief Complaint Chief Complaint SEEN IN ER , 64 year old female with history of hypertension, seizure, fibromyalgia, arthritis, asthma, gout, sepsis, pneumonia, migraine, anxiety, osteoarthritis who presents with complaint of right chest pain. NOTES intermittent episodes of right lower chest pain for 2 weeks as a sharp pain without radiation that gradually getting more constant and rated her pain 8/10 that getting worse with taking deep breaths. NOTES shortness of breath and cough //productive with yellow sputum. states she had fever up to 103 the last 2 weeks intermittently but did not have fever at arrival to ER. WORKS AT [employer] IN [place], C/O FLU-LIKE SYMPTOMS, NO FLU SHOT LAST FALL Past Medical History Past Medical History Past Medical History Past Medical History Past Medical History: Anxiety, Arthritis, Asthma, Fibromyalgia, GERD, Hypertension, IBS, Migraines, Pneumonia, Seizure, UTI Additional Past Medical Histor: GOUT, OSTEOPOROSIS Past Surgical History: Appendectomy, Cholecystectomy, Hysterectomy Additional Past Surgical Histo: laparoscopy Smoking Status: Former Smoker Alcohol Use: None Drug Use: None She did have a negative MPI on 04/06/2019. Past Medical History Cardiovascular: HTN, Other Pulmonary: No pertinent hx CENTRAL NERVOUS SYSTEM: Other GI: GERD, Peptic Ulcer disease Heme/Onc: Cancer Hepatobiliary: No pertinent hx Psych: No pertinent hx Musculoskeletal: Osteoarthritis Rheumatologic: Fibromyalgia Infectious disease: No pertinent hx Renal/: No pertinent hx Endocrine: Osteopenia Past Surgical History Past Surgical History: Appendectomy, Cholecystectomy, Hysterectomy Family History Family History: Cancer, Diabetes, Heart Disease, Hypertension, Kidney Disease Social History Smoke: No ALCOHOL: none Drugs: None Cardiovascular: HTN, Other Pulmonary: No pertinent hx, Pneumonia CENTRAL NERVOUS SYSTEM: Other GI: GERD, Peptic Ulcer disease Heme/Onc: Cancer Hepatobiliary: No pertinent hx Psych: No pertinent hx Musculoskeletal: Osteoarthritis Rheumatologic: Fibromyalgia Infectious disease: No pertinent hx Renal/: No pertinent hx Endocrine: Osteopenia Past Surgical History Past Surgical History: Appendectomy, Cholecystectomy, Hysterectomy Family History Family History: Cancer, Diabetes, Heart Disease, Hypertension, Kidney Disease Social History Smoke: No ALCOHOL: none Drugs: None Current Problem List Problem List Problems Medical Problems: (1) Hypotension Status: Acute (2) Hypoxia Status: Acute (3) Right-sided chest pain Status: Acute (4) Suspected 2019-nCoV infection Status: Acute Current Medications Current Medications Current Medications Sodium Chloride 1,000 ml @ 1,000 mls/hr Q1H IV Last administered on 08/23/19at 17:20; Start 08/23/19 at 17:11; Stop 08/23/19 at 18:10; Status DC Ondansetron HCl (Zofran) 4 mg PRN Q8HRS PRN IV NAUSEA/VOMITING Last administered on 08/23/19at 21:54; Start 08/23/19 at 20:00; Stop 08/24/19 at 19:59 Morphine Sulfate (Morphine Sulfate) 2 mg PRN Q2HR PRN IV PAIN; Start 08/23/19 at 20:00; Stop 08/24/19 at 19:59 Sodium Chloride 1,000 ml @ 75 mls/hr [id number] IV Last administered on 08/24/19at 03:29; Start 08/23/19 at 19:51; Stop 08/24/19 at 19:50 Acetaminophen (Tylenol) 650 mg PRN Q4HRS PRN PO FEVER Last administered on 08/23/19at 21:55; Start 08/23/19 at 20:00; Stop 08/24/19 at 19:59 Sodium Chloride 1,000 ml @ 0 mls/hr 1X ONCE IV ; Start 08/23/19 at 20:15; Stop 08/23/19 at 20:21; Status DC Sodium Chloride 1,000 ml @ 1,000 mls/hr 1X ONCE IV Last administered on 08/23/19at 20:30; Start 08/23/19 at 20:30; Stop 08/23/19 at 21:29; Status DC Levofloxacin/ Dextrose 150 ml @ 100 mls/hr 1X ONCE IV Last administered on 08/23/19at 22:37; Start 08/23/19 at 22:30; Stop 08/23/19 at 23:59; Status DC Tramadol HCl (Ultram) 50 mg BID PO Last administered on 08/24/19at 08:31; Start 08/24/19 at 09:00 Zolpidem Tartrate (Ambien) 5 mg PRN QHS PRN PO INSOMNIA, MAY REPEAT X1; Start 08/24/19 at 00:45 Active Scripts Active Pyridium (Phenazopyridine Hcl) 200 Mg Tablet 1 Tab PO TID 3 Days Ciprofloxacin Hcl 500 Mg Tablet 1 Tab PO BID Lidocaine PATCH (Lidocaine) 1 Each Adh..patch 1 Patch TD DAILY Fiorinal 50-325-40 Mg Capsule (Butalbital/Aspirin/Caffeine) 1 Each Capsule 1 Each PO Q6HRS PRN Zofran (Ondansetron Hcl) 4 Mg Tablet 4 Mg PO PRN TID PRN nausea/vomiting Tylenol (Acetaminophen) 325 Mg Tablet 650 Mg PO PRN Q6HRS PRN 30 Days Pantoprazole Sodium (Pantoprazole Sodium) 40 Mg Tablet.dr 40 Mg PO DAILYAC 30 Days Reported Metoprolol Tartrate 25 Mg Tablet 25 Mg PO BID Dicyclomine Hcl 10 Mg Capsule 1 Cap PO BID PRN Imitrex (Sumatriptan Succinate) 100 Mg Tablet 1 Tab PO BID PRN Hydroxyzine Hcl 25 Mg Tablet 1 Tab PO DAILY PRN Diclofenac Sodium 75 Mg Tablet.dr 1 Tab PO BID Zolpidem Tartrate 10 Mg Tablet 10 Mg PO HS Lisinopril 10 Mg Tablet 1 Tab PO HS Gabapentin 800 Mg Tablet 1 Tab PO BID Cyclobenzaprine Hcl 10 Mg Tablet 1 Tab PO BID PRN Colestipol Hcl 1 Gm Tablet 1 Gm PO BID Tramadol Hcl 50 Mg Tablet 1 Tab PO BID Allergies Allergies: Coded Allergies: onion (Verified Allergy, Intermediate, 03/08/19) phenytoin (Verified Allergy, Intermediate, rash, 03/05/19) ROS Review of System Review of Systems Review of Systems Constitutional: Reports fever and weakness Eyes: Denies change in visual acuity, redness, or eye pain [] HENT: Denies nasal congestion or sore throat [] Respiratory: Reports cough and shortness of breath Cardiovascular: No additional information not addressed in HPI [] GI: Denies abdominal pain, nausea, vomiting, bloody stools or diarrhea [] : Denies dysuria or hematuria [] Musculoskeletal: Denies back pain or joint pain [] Integument: Denies rash or skin lesions [] Neurologic: Denies headache, focal weakness or sensory changes [] Endocrine: Denies polyuria or polydipsia [] 14 PT systems were reviewed and found to be within normal limits, except as documented Physical Exam Physical Exam Physical Exam Physical Exam Constitutional: Well developed, well nourished, mild distress, non-toxic appearance. [] HENT: Normocephalic, atraumatic, dry oral mucosa. Eyes: PERRLA, EOMI, conjunctiva normal, no discharge. [] Neck: Normal range of motion, no tenderness, supple, no stridor. [] Cardiovascular:Heart rate regular rhythm, no murmur [] Lungs & Thorax: Bilateral breath sounds clear to auscultation [, right side chest wall tenderness] Abdomen: Bowel sounds normal, soft, no tenderness, no masses, no pulsatile masses. [] Skin: Warm, dry, no erythema, no rash. [] Back: No tenderness, no CVA tenderness. [] Extremities: No tenderness, no cyanosis, no clubbing, ROM intact, no edema. [] Neurologic: Alert and oriented X 3, no focal deficits noted. [] Psychologic: Affect normal, judgement normal, mood normal. [] General: Alert, Oriented X3, Cooperative Heart: RRR Breasts: Not examined Abdomen: Soft Rectal Exam: not examined PELVIC: Examination not indicated Extremities: No cyanosis Neuro: Normal speech, Cranial nerves 3-12 NL Vitals Vitals Vital Signs Date Time Temp Pulse Resp B/P (MAP) Pulse Ox O2 Delivery O2 Flow Rate FiO2 08/24/19 08:31 21 96 Nasal Cannula 3.0 08/24/19 07:00 98.9 80 123/48 (73) 98.9 Labs Labs Laboratory Tests Test 08/23/19 17:10 08/23/19 17:53 White Blood Count 7.6 x10^3/uL (4.0-11.0) Red Blood Count 4.75 x10^6/uL (3.50-5.40) Hemoglobin 13.6 g/dL (12.0-15.5) Hematocrit 40.1 % (36.0-47.0) Mean Corpuscular Volume 84 fL (79-100) Mean Corpuscular Hemoglobin 29 pg (25-35) Mean Corpuscular Hemoglobin Concent 34 g/dL (31-37) Red Cell Distribution Width 13.1 % (11.5-14.5) Platelet Count 243 x10^3/uL (140-400) Neutrophils (%) (Auto) 79 % (31-73) Lymphocytes (%) (Auto) 10 % (24-48) Monocytes (%) (Auto) 10 % (0-9) Eosinophils (%) (Auto) 0 % (0-3) Basophils (%) (Auto) 0 % (0-3) Neutrophils # (Auto) 6.0 x10^3/uL (1.8-7.7) Lymphocytes # (Auto) 0.8 x10^3/uL (1.0-4.8) Monocytes # (Auto) 0.8 x10^3/uL (0.0-1.1) Eosinophils # (Auto) 0.0 x10^3/uL (0.0-0.7) Basophils # (Auto) 0.0 x10^3/uL (0.0-0.2) Prothrombin Time 12.4 SEC (11.7-14.0) Prothromb Time International Ratio 1.0 (0.8-1.1) D-Dimer (Stefanie) 0.46 ug/mlFEU (0.00-0.50) Sodium Level 136 mmol/L (136-145) Potassium Level 5.1 mmol/L (3.5-5.1) Chloride Level 101 mmol/L (98-107) Carbon Dioxide Level 22 mmol/L (21-32) Anion Gap 13 (6-14) Blood Urea Nitrogen 30 mg/dL (7-20) Creatinine 1.9 mg/dL (0.6-1.0) Estimated GFR (Cockcroft-Gault) 26.5 BUN/Creatinine Ratio 16 (6-20) Glucose Level 96 mg/dL (70-99) Lactic Acid Level 1.1 mmol/L (0.4-2.0) Calcium Level 9.0 mg/dL (8.5-10.1) Magnesium Level 2.1 mg/dL (1.8-2.4) Total Bilirubin 0.4 mg/dL (0.2-1.0) Aspartate Amino Transf (AST/SGOT) 31 U/L (15-37) Alanine Aminotransferase (ALT/SGPT) 31 U/L (14-59) Alkaline Phosphatase 116 U/L (46-116) Creatine Kinase 35 U/L (26-192) Troponin I Quantitative < 0.017 ng/mL (0.000-0.055) VL-Gnl-K-Type Natriuretic Peptide 257 pg/mL (0-124) Total Protein 7.6 g/dL (6.4-8.2) Albumin 2.8 g/dL (3.4-5.0) Albumin/Globulin Ratio 0.6 (1.0-1.7) Lipase 103 U/L (73-393) Influenza Type A Antigen Negative (NEGATIVE) Influenza Type B Antigen Negative (NEGATIVE) Laboratory Tests Test 08/23/19 17:10 08/23/19 17:53 White Blood Count 7.6 x10^3/uL (4.0-11.0) Red Blood Count 4.75 x10^6/uL (3.50-5.40) Hemoglobin 13.6 g/dL (12.0-15.5) Hematocrit 40.1 % (36.0-47.0) Mean Corpuscular Volume 84 fL (79-100) Mean Corpuscular Hemoglobin 29 pg (25-35) Mean Corpuscular Hemoglobin Concent 34 g/dL (31-37) Red Cell Distribution Width 13.1 % (11.5-14.5) Platelet Count 243 x10^3/uL (140-400) Neutrophils (%) (Auto) 79 % (31-73) Lymphocytes (%) (Auto) 10 % (24-48) Monocytes (%) (Auto) 10 % (0-9) Eosinophils (%) (Auto) 0 % (0-3) Basophils (%) (Auto) 0 % (0-3) Neutrophils # (Auto) 6.0 x10^3/uL (1.8-7.7) Lymphocytes # (Auto) 0.8 x10^3/uL (1.0-4.8) Monocytes # (Auto) 0.8 x10^3/uL (0.0-1.1) Eosinophils # (Auto) 0.0 x10^3/uL (0.0-0.7) Basophils # (Auto) 0.0 x10^3/uL (0.0-0.2) Prothrombin Time 12.4 SEC (11.7-14.0) Prothromb Time International Ratio 1.0 (0.8-1.1) D-Dimer (Stefanie) 0.46 ug/mlFEU (0.00-0.50) Sodium Level 136 mmol/L (136-145) Potassium Level 5.1 mmol/L (3.5-5.1) Chloride Level 101 mmol/L (98-107) Carbon Dioxide Level 22 mmol/L (21-32) Anion Gap 13 (6-14) Blood Urea Nitrogen 30 mg/dL (7-20) Creatinine 1.9 mg/dL (0.6-1.0) Estimated GFR (Cockcroft-Gault) 26.5 BUN/Creatinine Ratio 16 (6-20) Glucose Level 96 mg/dL (70-99) Lactic Acid Level 1.1 mmol/L (0.4-2.0) Calcium Level 9.0 mg/dL (8.5-10.1) Magnesium Level 2.1 mg/dL (1.8-2.4) Total Bilirubin 0.4 mg/dL (0.2-1.0) Aspartate Amino Transf (AST/SGOT) 31 U/L (15-37) Alanine Aminotransferase (ALT/SGPT) 31 U/L (14-59) Alkaline Phosphatase 116 U/L (46-116) Creatine Kinase 35 U/L (26-192) Troponin I Quantitative < 0.017 ng/mL (0.000-0.055) BL-Jdj-[id number]-Type Natriuretic Peptide 257 pg/mL (0-124) Total Protein 7.6 g/dL (6.4-8.2) Albumin 2.8 g/dL (3.4-5.0) Albumin/Globulin Ratio 0.6 (1.0-1.7) Lipase 103 U/L (73-393) Influenza Type A Antigen Negative (NEGATIVE) Influenza Type B Antigen Negative (NEGATIVE) Images Images CT study chest without contrast Clinical indications: Cough and fever. Technique: Noncontrast helical CT scanning of the chest was performed. Without IV contrast, the sensitivity to detect organ pathology is decreased. PQRS compliance Statement One or more of the following individualized dose reduction techniques were utilized for this study: 1. Automated exposure control 2. Adjustment of the mA and/or kV according to patient size 3. Use of iterative reconstruction technique COMPARISON: May 03, 2019. FINDINGS: Mediastinal lymph nodes have not changed significantly. No focal aneurysmal dilatation of the thoracic aorta is seen. The heart size is normal and no pericardial effusion is seen. No pleural effusion or pneumothorax is seen. The proximal bronchial tree is patent. Bilateral diffuse perihilar and peripheral 5 lobe groundglass lung infiltrates are seen which are new. No crazy paving pattern is evident. No bronchiectasis is seen. No enlarging lung mass is seen. Evaluation of the previously seen lung nodules is difficult given the groundglass lung infiltrates. No lytic process is seen. No adrenal mass is evident. IMPRESSION: New bilateral perihilar and peripheral 5 lobe groundglass lung infiltrates are seen and this may be due to pulmonary edema or could be infectious or inflammatory in nature. Aspiration pneumonitis is in the differential diagnosis. No significant change in size of mediastinal lymph nodes. Electronically signed by: Tino Isaac MD (08/24/2019 11:16 AM) [id number] DICTATED and SIGNED BY: TINO ISAAC MD DATE: 08/24/19 1116 Exam: Chest one view INDICATION: Shortness of breath TECHNIQUE: Frontal view of the chest Comparisons: 05/17/2019 FINDINGS: The cardiomediastinal silhouette and pulmonary vessels are within normal limits. Subtle patchy bilateral airspace disease is noted. No pleural effusion. IMPRESSION: Subtle patchy bilateral airspace disease Electronically signed by: Eileen Larkin MD (08/23/2019 7:02 PM) [id number] DICTATED and SIGNED BY: EILEEN LARKIN MD DATE: 08/23/19 1902 VTE Prophylaxis Ordered VTE Prophylaxis Devices: No VTE Pharmacological Prophylaxi: Yes Assessment/Plan Assessment/Plan IMPRESSION Acute hypoxic resp failure ACUTE PNEUMONIA New bilateral perihilar and peripheral 5 lobe groundglass lung infiltrates are seen and this may be due to pulmonary edema or could be infectious or inflammatory in nature. Aspiration pneumonitis is in the differential diagnosis. FEVER GERD ACUTE RENAL INJURY CONCERN FOR COVID-19 HX ASTHMA HYPERTENSION HYPOTENSION WITH ACUTE INTRAVASCULAR DEPLETION SEPSIS SEVERE PROTEIN-CALORIC MALNUTRITION PLAN ADMIT COVID-[address] CHEST O2 SUPPORT RESP ISOLATION IV LEVAQUIN MYCOPLASMA IGM TITER, ACUTE SEPSIS PROTOCOL PULM CONSULT ON HOLD PER PULM MED DR SANTOS LEGIONELLA URINARY AG DVT PROPHYLAXIS 105 MIN CC TIME PRIMITIVO MÉNDEZ MD Aug 24, 2019 09:37
[2019-08-24] MEDS ORDERED: ACETAMINOPHEN 325 MG TABLET. PO PRN ×2 (09:45→12:15)
[2019-08-24] MEDS ORDERED: hydrOXYzine 25 MG TABLET PO PRN (09:45)
[2019-08-24] MEDS ORDERED: BUTALB/APAP/CAFEIN 50/325/40MG TABLET. PO PRN (09:45)
[2019-08-24] MEDS ORDERED: ONDANSETRON ODT 4 MG TAB.RAPDIS. PO PRN (09:45)
--- NOTE | 2019-08-24 11:19 | RAD ---
CT study chest without contrast Clinical indications: Cough and fever. Technique: Noncontrast helical CT scanning of the chest was performed. Without IV contrast, the sensitivity to detect organ pathology is decreased. PQRS compliance Statement One or more of the following individualized dose reduction techniques were utilized for this study: 1. Automated exposure control 2. Adjustment of the mA and/or kV according to patient size 3. Use of iterative reconstruction technique COMPARISON: May 03, 2019. FINDINGS: Mediastinal lymph nodes have not changed significantly. No focal aneurysmal dilatation of the thoracic aorta is seen. The heart size is normal and no pericardial effusion is seen. No pleural effusion or pneumothorax is seen. The proximal bronchial tree is patent. Bilateral diffuse perihilar and peripheral 5 lobe groundglass lung infiltrates are seen which are new. No crazy paving pattern is evident. No bronchiectasis is seen. No enlarging lung mass is seen. Evaluation of the previously seen lung nodules is difficult given the groundglass lung infiltrates. No lytic process is seen. No adrenal mass is evident. IMPRESSION: New bilateral perihilar and peripheral 5 lobe groundglass lung infiltrates are seen and this may be due to pulmonary edema or could be infectious or inflammatory in nature. Aspiration pneumonitis is in the differential diagnosis. No significant change in size of mediastinal lymph nodes. Electronically signed by: Johnson Isaac MD (08/24/2019 11:16 AM) [id number]
[2019-08-24] MEDS: IPRATRPIUM/ALBUTEROL 0.5/2.5MG 3 ML NEBU. NEB SCH ×3 (12:00→20:00)
[2019-08-24 12:13] LABS: MYCOPLASMA PATIENT POSITIVE (NEGATIVE)
[2019-08-24] MEDS ORDERED: 0.9 % SODIUM CHLORIDE 10 ML DISP.SYRIN. IV PRN (12:15)
[2019-08-24] MEDS ORDERED: DOCUSATE SODIUM 100 MG CAPSULE. PO PRN (12:15)
[2019-08-24] MEDS ORDERED: cloNIDine HCL 0.1 MG TABLET PO PRN (12:15)
[2019-08-24] MEDS ORDERED: LORazepam 0.5 MG TABLET PO PRN (12:15)
[2019-08-24] MEDS ORDERED: MAG HYDROX/ALUMINUM HYD/SIMETH 30 ML ORAL.SUSP PO PRN (12:15)
[2019-08-24] MEDS ORDERED: ONDANSETRON PF 4 MG/2 ML VIAL. IV PRN (12:15)
[2019-08-24] MEDS ORDERED: guaiFENesin ORAL 200 MG/10 ML LIQUID. PO PRN (12:15)
[2019-08-24] MEDS ORDERED: IV NORMAL SALINE 500ML BAG 500 ML IV PRN (12:30)
[2019-08-24] MEDS ORDERED: VASOPRESSIN 20 UNIT in IV DEXTROSE 5% 100ML 100 ML IV PRN (12:30)
[2019-08-24] MEDS ORDERED: IV NORMAL SALINE 1000ML BAG 1,000 ML IV SCH (12:30)
[2019-08-24] MEDS: GABAPENTIN 400 MG CAPSULE. PO SCH ×2 (12:36→19:53)
[2019-08-24] MEDS: PANTOPRAZOLE 40 MG TABLET.DR. PO SCH (12:37)
[2019-08-24] MEDS: COLESTIPOL HCL 1 GM TABLET PO SCH ×2 (12:37→19:52)
[2019-08-24] MEDS: LIDOCAINE (700MG/PATCH) PATCH. TD SCH (12:39)
[2019-08-24] MEDS ORDERED: AZITHROMYCIN 250 MG TABLET. PO ONE (13:00)
--- NOTE | 2019-08-24 13:27 | CONS ---
DATE OF CONSULTATION: PULMONARY CONSULTATION HISTORY OF PRESENT ILLNESS: This is a 64-year-old female that we are asked to see because of an abnormal CT exam and shortness of breath. She denies any childhood respiratory problems. She did smoke tobacco until the age of 34. She was hospitalized with pneumonia approximately 1 year ago. She does not remember many details of that, but does note that she was not in the Intensive Care Unit, nor was she mechanically ventilated. She otherwise denies any pulmonary problems as an adult. She was in her usual state of health until 2-3 weeks ago. She has had fevers at home and a cough that has recently become productive of yellow sputum. She also complains of generalized malaise. She does not know of any close exposures who had a COVID virus, although she does work at [employer] and notes that she comes into contact with the public and she also notes that many of her coworkers have been sick recently. PAST MEDICAL HISTORY: Significant for anxiety, arthritis, fibromyalgia, GERD, hypertension, migraine headaches and seizures. She has had an appendectomy, a cholecystectomy and a hysterectomy. FAMILY HISTORY: Negative for lung problems. SOCIAL HISTORY: See above tobacco and occupational history. REVIEW OF SYSTEMS: The patient declined a review of systems and asked me to check the chart noting that she was too fatigued to answer. From the previous, review of systems was obtained that was unremarkable. PHYSICAL EXAMINATION: GENERAL: Reveals a female on supplemental oxygen and some mild respiratory distress. VITAL SIGNS: She is afebrile at present. Her heart rate is 85 per minute and regular. Her respiratory rate is 20 per minute without using accessory muscles. She is able to speak in full sentences. Her oxygen saturation is 97% on 3 liters of supplemental oxygen. HEENT: Unremarkable. NECK: There is no JVD or lymphadenopathy. CHEST: She does have equal breath sounds. I did not appreciate any rales. She does not have any wheezing. CARDIOVASCULAR: She has a regular rate and rhythm without any appreciable murmur or gallop. ABDOMEN: Soft. EXTREMITIES: There is no cyanosis, clubbing or edema. NEUROLOGIC: She is alert, oriented and appropriate. Cranial nerves and motor are all intact. LABORATORY DATA: She had a chest x-ray done on 08/23/[address] of the chest done today. These show extensive bilateral infiltrates. Her influenza A and B serology was negative. Her white blood cell count was 7600 with 10% lymphocytes. Her creatinine was 1.9. Her AST and ALT were normal. Her mycoplasma serology was positive. Her COVID test has been drawn and is pending. IMPRESSION: 1. Pneumonia. 2. Renal insufficiency. COMMENT: The mycoplasma serology is suggestive of mycoplasma pneumonia obviously. However, I would note that serology may persist for some time after an acute infection. Given that we are in the middle of the COVID epidemic, I would still strongly consider COVID. PLAN: We will place her on isolation. I am taking the liberty of switching her antibiotics from levofloxacin to azithromycin. I am also adding hydroxychloroquine to her regimen. I am obtaining an EKG to monitor her QT interval. If she were to deteriorate further, I would consider adding vancomycin and Zosyn. Also, the use of tocilizumab would be appropriate if she has life-threatening condition. We will follow along with you. Thank you for the consultation. MO CANTU MD DR: DAVID/kenrick JOB#: [id number] / [id number]
--- NOTE | 2019-08-24 13:47 | PDOC2 ---
CONSULT Date of Consult Date of Consult DATE: 08/24/19 TIME: 13:19 Reason for Consult Reason for Consult: DARA History of Present Illness Reason for Visit: Patient is a 64 year female with history of hypertension, seizure, fibromyalgia, arthritis, asthma, gout, sepsis, pneumonia, who presented to the ER with complaint of right chest pain. Patient complaining of intermittent episodes of right lower chest pain for 2 weeks as a sharp pain without radiation that gradually getting more constant and rated her pain 8/10 that getting worse with taking deep breaths. Patient complaining of shortness of breath and cough that getting productive with yellow sputum. Patient states she had fever up to 103 the last 2 weeks intermittently but did not have fever at arrival to ER. Patient denies diarrhea and constipation, No urinary symptoms,No focal neuro deficit, denies sick contact, denies sore throat Past Medical History Cardiovascular: HTN, Other Pulmonary: No pertinent hx, Pneumonia CENTRAL NERVOUS SYSTEM: Other GI: GERD, Peptic Ulcer disease Heme/Onc: Cancer Hepatobiliary: No pertinent hx Psych: No pertinent hx Musculoskeletal: Osteoarthritis Rheumatologic: Fibromyalgia Infectious disease: No pertinent hx Renal/: No pertinent hx Endocrine: Osteopenia Past Surgical History Past Surgical History: Appendectomy, Cholecystectomy, Hysterectomy Family History Family History: Cancer, Diabetes, Heart Disease, Hypertension, Kidney Disease Social History No ALCOHOL: none Drugs: None Lives: with Family Domestic Violence: Neg Current Problem List Problem List Problems Medical Problems: (1) Hypotension Status: Acute (2) Hypoxia Status: Acute (3) Right-sided chest pain Status: Acute (4) Suspected 2019-nCoV infection Status: Acute Current Medications Current Medications Current Medications Sodium Chloride 1,000 ml @ 1,000 mls/hr Q1H IV Last administered on 08/23/19at 17:20; Start 08/23/19 at 17:11; Stop 08/23/19 at 18:10; Status DC Ondansetron HCl (Zofran) 4 mg PRN Q8HRS PRN IV NAUSEA/VOMITING Last administered on 08/23/19at 21:54; Start 08/23/19 at 20:00; Stop 08/24/19 at 12:42; Status DC Morphine Sulfate (Morphine Sulfate) 2 mg PRN Q2HR PRN IV PAIN; Start 08/23/19 at 20:00; Stop 08/24/19 at 19:59 Sodium Chloride 1,000 ml @ 75 mls/hr [id number] IV Last administered on 08/24/19at 03:29; Start 08/23/19 at 19:51; Stop 08/24/19 at 19:50 Acetaminophen (Tylenol) 650 mg PRN Q4HRS PRN PO FEVER Last administered on 08/23/19at 21:55; Start 08/23/19 at 20:00; Stop 08/24/19 at 11:41; Status DC Sodium Chloride 1,000 ml @ 0 mls/hr 1X ONCE IV ; Start 08/23/19 at 20:15; Stop 08/23/19 at 20:21; Status DC Sodium Chloride 1,000 ml @ 1,000 mls/hr 1X ONCE IV Last administered on 08/23/19at 20:30; Start 08/23/19 at 20:30; Stop 08/23/19 at 21:29; Status DC Levofloxacin/ Dextrose 150 ml @ 100 mls/hr 1X ONCE IV Last administered on 08/23/19at 22:37; Start 08/23/19 at 22:30; Stop 08/23/19 at 23:59; Status DC Tramadol HCl (Ultram) 50 mg BID PO Last administered on 08/24/19at 08:31; Start 08/24/19 at 09:00 Zolpidem Tartrate (Ambien) 5 mg PRN QHS PRN PO INSOMNIA, MAY REPEAT X1; Start 08/24/19 at 00:45 Acetaminophen (Tylenol) 650 mg PRN Q6HRS PRN PO FEVER; Start 08/24/19 at 09:45; Stop 08/24/19 at 12:40; Status DC Colestipol HCl (Colestid) 1 gm BID@1000,2200 PO Last administered on 08/24/19at 12:37; Start 08/24/19 at 10:00 Hydroxyzine HCl (Atarax) 25 mg DAILY PRN PO ITCHING; Start 08/24/19 at 09:45 Lidocaine (Lidoderm) 1 patch DAILY TD Last administered on 08/24/19at 12:39; Start 08/24/19 at 10:00 Pantoprazole Sodium (Protonix) 40 mg DAILYAC PO Last administered on 08/24/19at 12:37; Start 08/24/19 at 10:00 Acetaminophen/ Butalbital/ Caffeine (Fioricet) 1 tab PRN Q6HRS PRN PO MIGRAINE HEADACHE; Start 08/24/19 at 09:45 Gabapentin (Neurontin) 80 mg BID PO Last administered on 08/24/19at 12:36; Start 08/24/19 at 10:00 Ondansetron HCl (Zofran Odt) 4 mg PRN Q8HRS PRN PO NAUSEA/VOMITING Last administered on 08/24/19at 12:36; Start 08/24/19 at 09:45 Miscellaneous (Lidoderm Patch Removal) 1 ea QHS MC ; Start 08/24/19 at 21:00 Levofloxacin/ Dextrose 100 ml @ 100 mls/hr Q24H IV ; Start 08/24/19 at 10:00; Status UNV Levofloxacin/ Dextrose 150 ml @ 100 mls/hr Q48H IV ; Start 08/25/19 at 21:00; Stop 08/24/19 at 12:56; Status DC Sodium Chloride (Normal Saline Flush) 3 ml QSHIFT PRN IV AFTER MEDS AND BLOOD DRAWS; Start 08/24/19 at 12:15 Sodium Chloride 1,000 ml @ 100 mls/hr Q10H IV ; Start 08/24/19 at 20:00 Ondansetron HCl (Zofran) 4 mg PRN Q4HRS PRN IV NAUSEA/VOMITING; Start 08/24/19 at 12:15 Acetaminophen (Tylenol) 650 mg PRN Q4HRS PRN PO TEMP OVER 100.4F OR MILD PAIN; Start 08/24/19 at 12:15 Al Hydroxide/Mg Hydroxide (Mylanta Plus Xs) 30 ml PRN DAILY PRN PO HEARTBURN / GAS; Start 08/24/19 at 12:15 Clonidine HCl (Catapres) 0.1 mg PRN Q6HRS PRN PO SBP>160 OR DBP>90; Start 08/24/19 at 12:15 Docusate Sodium (Colace) 100 mg PRN BID PRN PO CONSTIPATION; Start 08/24/19 at 12:15 Albuterol/ Ipratropium (Duoneb) 3 ml Q4H NEB ; Start 08/24/19 at 12:00 Guaifenesin (Robitussin) 200 mg PRN Q4HRS PRN PO COUGH; Start 08/24/19 at 12:15 Lorazepam (Ativan) 0.5 mg PRN Q4HRS PRN PO ANXIETY / AGITATION; Start 08/24/19 at 12:15 Enoxaparin Sodium (Lovenox 40mg Syringe) 40 mg Q24H SQ ; Start 08/24/19 at 16:00 Sodium Chloride 1,000 ml @ 1,920 mls/hr Q32M IV ; Start 08/24/19 at 12:30; Stop 08/24/19 at 13:30 Sodium Chloride 500 ml @ 1,000 mls/hr PRN Q30MIN PRN IV SEE COMMENTS; Start 08/24/19 at 12:30 Cefepime HCl (Maxipime) 2 gm Q12HR IVP ; Start 08/24/19 at 14:00 Vasopressin 20 unit/Dextrose 101 ml @ 12 mls/hr CONT PRN IV SEE I/O RECORD; Start 08/24/19 at 12:30 Dobutamine HCl/ Dextrose 250 ml @ 0 mls/hr CONT PRN IV SEE I/O RECORD; Start 08/24/19 at 12:30 Azithromycin (Zithromax) 500 mg 1X ONCE PO ; Start 08/24/19 at 13:00; Stop 08/24/19 at 13:01; Status UNV Azithromycin (Zithromax) 250 mg DAILY PO ; Start 08/25/19 at 09:00; Status UNV Hydroxychloroquine Sulfate (Plaquenil) 400 mg BID PO ; Start 08/24/19 at 21:00; Status UNV Hydroxychloroquine Sulfate (Plaquenil) 200 mg DAILY PO ; Start 08/25/19 at 09:00; Stop 08/29/19 at 17:00; Status UNV Active Scripts Active Pyridium (Phenazopyridine Hcl) 200 Mg Tablet 1 Tab PO TID 3 Days Ciprofloxacin Hcl 500 Mg Tablet 1 Tab PO BID Lidocaine PATCH (Lidocaine) 1 Each Adh..patch 1 Patch TD DAILY Fiorinal 50-325-40 Mg Capsule (Butalbital/Aspirin/Caffeine) 1 Each Capsule 1 Each PO Q6HRS PRN Zofran (Ondansetron Hcl) 4 Mg Tablet 4 Mg PO PRN TID PRN nausea/vomiting Tylenol (Acetaminophen) 325 Mg Tablet 650 Mg PO PRN Q6HRS PRN 30 Days Pantoprazole Sodium (Pantoprazole Sodium) 40 Mg Tablet. 40 Mg PO DAILYAC 30 Days Reported Metoprolol Tartrate 25 Mg Tablet 25 Mg PO BID Dicyclomine Hcl 10 Mg Capsule 1 Cap PO BID PRN Imitrex (Sumatriptan Succinate) 100 Mg Tablet 1 Tab PO BID PRN Hydroxyzine Hcl 25 Mg Tablet 1 Tab PO DAILY PRN Diclofenac Sodium 75 Mg Tablet. 1 Tab PO BID Zolpidem Tartrate 10 Mg Tablet 10 Mg PO HS Lisinopril 10 Mg Tablet 1 Tab PO HS Gabapentin 800 Mg Tablet 1 Tab PO BID Cyclobenzaprine Hcl 10 Mg Tablet 1 Tab PO BID PRN Colestipol Hcl 1 Gm Tablet 1 Gm PO BID Tramadol Hcl 50 Mg Tablet 1 Tab PO BID Allergies Allergies: Coded Allergies: onion (Verified Allergy, Intermediate, 03/08/19) phenytoin (Verified Allergy, Intermediate, rash, 03/05/19) ROS Review of System Per HPI Physical Exam Physical Exam General: NAD HEEN-OM moist neck supple Heart: RRR Lungs decreased at bases, Non labored Abdomen: Soft Extremities: No cyanosis, No edema Neuro: grossly normal Skin No rash No vaughn, No CVA or SP tenderness Vital Signs Vital Signs Date Time Temp Pulse Resp B/P (MAP) Pulse Ox O2 Delivery O2 Flow Rate FiO2 08/24/19 11:00 98.6 85 21 110/55 (73) 97 Nasal Cannula 3.0 98.6 Assessment & Plan DARA - Suspect vasomotor/Hypotension Per home med list has been on Diclofenac and Lisinopril- Hold both No labs done this am Supportive care , Strict I/O, avoid nephrotoxins, cautious with IVF monitoring pulm status / Vol overload , Daily BMP E- lytes and Vol status stable If No improvement in renal function, will get renal US (most recent CT and US in 2019-unremarkable except cysts ) and UA Renal CYst - Bilat , complex, On CT in feb 2019 at [facility] HTN- on antihypertensive at home Presented with Low BP, Monitor per primary Pneumonia- mycoplasma serology positive CoVid pending, Pulm following Dw RN Ct abdomen 02/2019-- Complex cystic or soft tissue abnormalities involving both kidneys as described above. These are incompletely evaluated on the current contrasted examination. Nonemergent follow-up characterization with three-phase CT scan of the abdomen or MRI of the abdomen is recommended. Labs Labs Laboratory Tests Test 08/23/19 17:10 08/23/19 17:53 08/24/19 10:05 White Blood Count 7.6 x10^3/uL (4.0-11.0) Red Blood Count 4.75 x10^6/uL (3.50-5.40) Hemoglobin 13.6 g/dL (12.0-15.5) Hematocrit 40.1 % (36.0-47.0) Mean Corpuscular Volume 84 fL (79-100) Mean Corpuscular Hemoglobin 29 pg (25-35) Mean Corpuscular Hemoglobin Concent 34 g/dL (31-37) Red Cell Distribution Width 13.1 % (11.5-14.5) Platelet Count 243 x10^3/uL (140-400) Neutrophils (%) (Auto) 79 % (31-73) Lymphocytes (%) (Auto) 10 % (24-48) Monocytes (%) (Auto) 10 % (0-9) Eosinophils (%) (Auto) 0 % (0-3) Basophils (%) (Auto) 0 % (0-3) Neutrophils # (Auto) 6.0 x10^3/uL (1.8-7.7) Lymphocytes # (Auto) 0.8 x10^3/uL (1.0-4.8) Monocytes # (Auto) 0.8 x10^3/uL (0.0-1.1) Eosinophils # (Auto) 0.0 x10^3/uL (0.0-0.7) Basophils # (Auto) 0.0 x10^3/uL (0.0-0.2) Prothrombin Time 12.4 SEC (11.7-14.0) Prothromb Time International Ratio 1.0 (0.8-1.1) D-Dimer (Stefanie) 0.46 ug/mlFEU (0.00-0.50) Sodium Level 136 mmol/L (136-145) Potassium Level 5.1 mmol/L (3.5-5.1) Chloride Level 101 mmol/L (98-107) Carbon Dioxide Level 22 mmol/L (21-32) Anion Gap 13 (6-14) Blood Urea Nitrogen 30 mg/dL (7-20) Creatinine 1.9 mg/dL (0.6-1.0) Estimated GFR (Cockcroft-Gault) 26.5 BUN/Creatinine Ratio 16 (6-20) Glucose Level 96 mg/dL (70-99) Lactic Acid Level 1.1 mmol/L (0.4-2.0) Calcium Level 9.0 mg/dL (8.5-10.1) Magnesium Level 2.1 mg/dL (1.8-2.4) Total Bilirubin 0.4 mg/dL (0.2-1.0) Aspartate Amino Transf (AST/SGOT) 31 U/L (15-37) Alanine Aminotransferase (ALT/SGPT) 31 U/L (14-59) Alkaline Phosphatase 116 U/L (46-116) Creatine Kinase 35 U/L (26-192) Troponin I Quantitative < 0.017 ng/mL (0.000-0.055) DS-Uca-F-Type Natriuretic Peptide 257 pg/mL (0-124) Total Protein 7.6 g/dL (6.4-8.2) Albumin 2.8 g/dL (3.4-5.0) Albumin/Globulin Ratio 0.6 (1.0-1.7) Lipase 103 U/L (73-393) Influenza Type A Antigen Negative (NEGATIVE) Influenza Type B Antigen Negative (NEGATIVE) Mycoplasma Serology (LAB) Positive (NEGATIVE) Laboratory Tests Test 08/23/19 17:10 08/23/19 17:53 08/24/19 10:05 White Blood Count 7.6 x10^3/uL (4.0-11.0) Red Blood Count 4.75 x10^6/uL (3.50-5.40) Hemoglobin 13.6 g/dL (12.0-15.5) Hematocrit 40.1 % (36.0-47.0) Mean Corpuscular Volume 84 fL (79-100) Mean Corpuscular Hemoglobin 29 pg (25-35) Mean Corpuscular Hemoglobin Concent 34 g/dL (31-37) Red Cell Distribution Width 13.1 % (11.5-14.5) Platelet Count 243 x10^3/uL (140-400) Neutrophils (%) (Auto) 79 % (31-73) Lymphocytes (%) (Auto) 10 % (24-48) Monocytes (%) (Auto) 10 % (0-9) Eosinophils (%) (Auto) 0 % (0-3) Basophils (%) (Auto) 0 % (0-3) Neutrophils # (Auto) 6.0 x10^3/uL (1.8-7.7) Lymphocytes # (Auto) 0.8 x10^3/uL (1.0-4.8) Monocytes # (Auto) 0.8 x10^3/uL (0.0-1.1) Eosinophils # (Auto) 0.0 x10^3/uL (0.0-0.7) Basophils # (Auto) 0.0 x10^3/uL (0.0-0.2) Prothrombin Time 12.4 SEC (11.7-14.0) Prothromb Time International Ratio 1.0 (0.8-1.1) D-Dimer (Stefanie) 0.46 ug/mlFEU (0.00-0.50) Sodium Level 136 mmol/L (136-145) Potassium Level 5.1 mmol/L (3.5-5.1) Chloride Level 101 mmol/L (98-107) Carbon Dioxide Level 22 mmol/L (21-32) Anion Gap 13 (6-14) Blood Urea Nitrogen 30 mg/dL (7-20) Creatinine 1.9 mg/dL (0.6-1.0) Estimated GFR (Cockcroft-Gault) 26.5 BUN/Creatinine Ratio 16 (6-20) Glucose Level 96 mg/dL (70-99) Lactic Acid Level 1.1 mmol/L (0.4-2.0) Calcium Level 9.0 mg/dL (8.5-10.1) Magnesium Level 2.1 mg/dL (1.8-2.4) Total Bilirubin 0.4 mg/dL (0.2-1.0) Aspartate Amino Transf (AST/SGOT) 31 U/L (15-37) Alanine Aminotransferase (ALT/SGPT) 31 U/L (14-59) Alkaline Phosphatase 116 U/L (46-116) Creatine Kinase 35 U/L (26-192) Troponin I Quantitative < 0.017 ng/mL (0.000-0.055) LN-Tnz-S-Type Natriuretic Peptide 257 pg/mL (0-124) Total Protein 7.6 g/dL (6.4-8.2) Albumin 2.8 g/dL (3.4-5.0) Albumin/Globulin Ratio 0.6 (1.0-1.7) Lipase 103 U/L (73-393) Influenza Type A Antigen Negative (NEGATIVE) Influenza Type B Antigen Negative (NEGATIVE) Mycoplasma Serology (LAB) Positive (NEGATIVE) Review All relevant outside records, renal labs, imaging studies, telemetry/EKG's were reviewed. Images Images US abdomen 2018 Right kidney measures 12.1 cm in length. Simple cyst measuring 1.6 cm noted at the upper pole. No hydronephrosis. Left kidney measures 13.5 cm. Cyst measuring 1.8 cm noted at the lower pole. No hydronephrosis. Spleen measures 12.5 cm in length. IMPRESSION: 1. Hepatic steatosis. 2. Gallbladder is absent. No biliary ductal dilatation identified. 3. No hydronephrosis. 4. Limitations as above. abdomen PRICILA BARAJAS MD Aug 24, 2019 13:47
[2019-08-24] MEDS: CEFEPIME HCL IV Push 2 GM VIAL. IVP SCH ×2 (14:00→21:00)
[2019-08-24] MEDS: HYDROXYCHLOROQUINE 200 MG TABLET PO SCH ×2 (14:00→19:53)
[2019-08-24 14:03] LABS: PROTHROMBIN TIME PATIENT 13.4 SEC (11.7-14.0)
[2019-08-24 14:07] LABS: D-DIMER 0.71 ug/mlFEU (0.00-0.50)
[2019-08-24 14:44] LABS: BILIRUBIN,URINE NEGATIVE (NEG); CLARITY,URINE CLEAR; COLOR,URINE YELLOW; NITRITE,URINE NEGATIVE (NEG); PROTEIN,URINE NEGATIVE (NEG-TRACE); UROBILINOGEN,URINE 0.2 mg/dL (0.2 mg/dL)
[2019-08-24 14:53] LABS: SQUAMOUS EPITHELIAL CELL,UR MOD /LPF
[2019-08-24 14:55] LABS: BACTERIA,URINE MOD /HPF (0-FEW); RBC,URINE 0 /HPF (0-2)
[2019-08-24] MEDS: ENOXAPARIN 40 MG/0.4 ML SYRINGE. SQ SCH (16:48)
[2019-08-24] MEDS: PATCH REMOVAL. MC SCH (21:00)
[2019-08-24] MEDS ORDERED: PROPOFOL 100 ML IV ONE (22:26)
[2019-08-24] MEDS ORDERED: SUCCINYLCHOLINE 200 MG/10 ML VIAL. IV ONE (23:00)
[2019-08-24] MEDS: PROPOFOL 100 ML IV PRN (23:42)
--- NOTE | 2019-08-24 23:50 | RAD ---
PORTABLE CHEST 1V INDICATION: Intubation. COMPARISON STUDY: 08/23/2019. FINDINGS: Endotracheal tube terminating at the xavier. Lungs: Normal lung volume. Diffuse bilateral heterogeneous opacities. Pleura: No pleural effusion or pneumothorax. Heart and Mediastinum: Stable cardiomediastinal silhouette and great vessels. IMPRESSION: 1. Endotracheal tube terminating at the xavier. Consider retraction for optimal positioning. 2. Diffuse bilateral heterogeneous opacities, likely multifocal infection or edema. Electronically signed by: James Morgan MD (08/24/2019 11:47 PM) [id number]
[2019-08-25] VITALS (22 sets, daily range): BP systolic 85–168; BP diastolic 45–67
[2019-08-25] MEDS ORDERED: MIDAZOLAM HCL 50 MG in IV NORMAL SALINE 50ML 50 ML IV PRN ×2
[2019-08-25] MEDS: MIDAZOLAM HCL 50 MG in IV NORMAL SALINE 50ML 50 ML IV PRN ×2 (00:16→05:28)
[2019-08-25 00:18] LABS: BASE EXCESS ABG -5 mmol/L (-3-3); HCO3 ABG 20 mmol/L (21-28); PCO2 ABG 35 mmHg (35-46); PO2 ABG 109 mmHg (65-108); SAT O2 ABG 98 % (92-99)
[2019-08-25 00:22] LABS: FIO2 ABG 80
[2019-08-25] MEDS ORDERED: NOREPINEPHRINE VIAL 8 MG in IV DEXTROSE 5% 250 ML IV PRN (02:00)
[2019-08-25] MEDS ORDERED: IV NORMAL SALINE 500ML BAG 500 ML IV ONE (02:00)
[2019-08-25] MEDS ORDERED: SUCCINYLCHOLINE 200 MG/10 ML VIAL. ONE (03:33)
[2019-08-25 04:56] LABS: BASO % 0 % (0-3); EOS % 1 % (0-3); HEMATOCRIT 35.3 % (36.0-47.0); HEMOGLOBIN 11.6 g/dL (12.0-15.5); LYMPH # 0.8 x10^3/uL (1.0-4.8); LYMPH % 17 % (24-48); MEAN CORPUSCULAR HEMOGLOBIN 28 pg (25-35); MEAN CORPUSCULAR HGB CONC 33 g/dL (31-37); MEAN CORPUSCULAR VOLUME 85 fL (79-100); MONO # 0.7 x10^3/uL (0.0-1.1); MONO % 14 % (0-9); NEUT # 3.4 x10^3/uL (1.8-7.7); NEUT % 69 % (31-73); PLATELET COUNT 214 x10^3/uL (140-400); RED BLOOD COUNT 4.15 x10^6/uL (3.50-5.40); RED CELL DISTRIBUTION WIDTH 13.2 % (11.5-14.5); WHITE BLOOD COUNT 4.9 x10^3/uL (4.0-11.0)
[2019-08-25 05:22] LABS: ALBUMIN 2.1 g/dL (3.4-5.0); CALCIUM 8.5 mg/dL (8.5-10.1); CREATININE 0.9 mg/dL (0.6-1.0); GFR 62.8; PHOSPHORUS 3.1 mg/dL (2.6-4.7); POTASSIUM 4.7 mmol/L (3.5-5.1)
[2019-08-25 08:47] LABS: BASE EXCESS ABG -3 mmol/L (-3-3); HCO3 ABG 21 mmol/L (21-28); PCO2 ABG 36 mmHg (35-46); PO2 ABG 180 mmHg (65-108); SAT O2 ABG 99 % (92-99)
[2019-08-25] MEDS: LIDOCAINE (700MG/PATCH) PATCH. TD SCH (09:00)
[2019-08-25] MEDS ORDERED: CHLORHEXIDINE 0.12% 15 ML MOUTHWASH. MM SCH (09:00)
[2019-08-25] MEDS: traMADol 50 MG TABLET PO SCH ×2 (09:00→20:32)
[2019-08-25 09:17] LABS: FIO2 ABG 80
[2019-08-25] MEDS: GABAPENTIN 400 MG CAPSULE. PO SCH ×2 (10:46→20:32)
[2019-08-25] MEDS: AZITHROMYCIN 250 MG TABLET. PO SCH (10:46)
[2019-08-25] MEDS: HYDROXYCHLOROQUINE 200 MG TABLET PO SCH ×2 (10:46→20:35)
[2019-08-25] MEDS: COLESTIPOL HCL 1 GM TABLET PO SCH ×2 (10:47→20:32)
[2019-08-25] MEDS: PANTOPRAZOLE 40 MG TABLET.DR. PO SCH (10:47)
[2019-08-25] MEDS: IPRATRPIUM/ALBUTEROL 0.5/2.5MG 3 ML NEBU. NEB SCH ×3 (12:00→20:40)
[2019-08-25] MEDS: IV NORMAL SALINE 1000ML BAG 1,000 ML IV SCH ×2 (12:00→22:41)
[2019-08-25] MEDS: CEFEPIME HCL IV Push 2 GM VIAL. IVP SCH ×2 (12:15→20:33)
[2019-08-25] MEDS ORDERED: ACETAMINOPHEN 650 MG/20.3 ML SOLUTION. PEG PRN (12:15)
--- NOTE | 2019-08-25 12:31 | PDOC ---
SUBJECTIVE ROS Patient was in respiratory distress, using accessory muscles, transferred to ICU, intubated OBJECTIVE Vital Signs Vital Signs Date Time Temp Pulse Resp B/P (MAP) Pulse Ox O2 Delivery O2 Flow Rate FiO2 08/25/19 11:59 Mechanical Ventilator 50.0 08/25/19 11:28 100.6 66 18 96/47 (63) 100 100.6 I & 0 Intake and Output 08/25/19 07:00 Intake Total 940 ml Output Total 1850 ml Balance -910 ml Intake Oral 250 ml IV Total 690 ml Output Urine Total 1850 ml PHYSICAL EXAM Physical Exam General: intubated , On MV HEEN-Intubated neck supple Heart: RRR Lungs decreased at bases Abdomen: Soft Extremities: No cyanosis, No edema Neuro: Intubated Skin No rash vaughn + DIAGNOSIS/ASSESSMENT Assessment & Plan DARA - Suspect vasomotor/Hypotension Per home med list has been on Diclofenac and Lisinopril- held Renal function improved ,E- lytes and Vol status stable Supportive care ,avoid nephrotoxins, Renal CYst - Bilat , complex, On CT in feb 2019 at [facility] HTN- on antihypertensive at home Presented with Low BP, Monitor per primary Pneumonia- mycoplasma serology positive CoVid pending, Pulm following Will sign off COMMENT/RELEVANT DATA Meds Current Medications Medications (Trade) Dose Ordered Sig/Eder Start Time Stop Time Status Last Admin Dose Admin Acetaminophen (Tylenol) 650 mg PRN Q6HRS PRN 08/25/19 12:15 08/25/19 12:15 650 MG Acetaminophen/ Butalbital/ Caffeine (Fioricet) 1 tab PRN Q6HRS PRN 08/24/19 09:45 Al Hydroxide/Mg Hydroxide (Mylanta Plus Xs) 30 ml PRN DAILY PRN 08/24/19 12:15 Albuterol/ Ipratropium (Duoneb) 3 ml Q4H 08/24/19 12:00 08/24/19 16:27 3 ML Azithromycin (Zithromax) 250 mg DAILY 08/25/19 09:00 08/28/19 09:01 08/25/19 10:46 250 MG Cefepime HCl (Maxipime) 2 gm Q12HR 08/24/19 14:00 08/25/19 12:15 2 GM Chlorhexidine Gluconate (Peridex) 15 ml BID 08/25/19 09:00 08/25/19 12:11 DC Clonidine HCl (Catapres) 0.1 mg PRN Q6HRS PRN 08/24/19 12:15 Colestipol HCl (Colestid) 1 gm BID@1000,2200 08/24/19 10:00 08/25/19 10:47 1 GM Dobutamine HCl/ Dextrose 250 ml @ 0 mls/hr CONT PRN 08/24/19 12:30 Docusate Sodium (Colace) 100 mg PRN BID PRN 08/24/19 12:15 Enoxaparin Sodium (Lovenox 40mg Syringe) 40 mg Q24H 08/24/19 16:00 08/24/19 16:48 40 MG Fentanyl Citrate 30 ml @ 0 mls/hr CONT PRN 08/24/19 22:30 08/25/19 03:57 2.5 MLS/HR Gabapentin (Neurontin) 800 mg BID 08/25/19 09:00 08/25/19 10:46 800 MG Guaifenesin (Robitussin) 200 mg PRN Q4HRS PRN 08/24/19 12:15 Hydroxychloroquine Sulfate (Plaquenil) 200 mg BID 08/25/19 09:00 08/28/19 21:01 08/25/19 10:46 200 MG Hydroxyzine HCl (Atarax) 25 mg DAILY PRN 08/24/19 09:45 Levofloxacin/ Dextrose 150 ml @ 100 mls/hr Q48H 08/25/19 21:00 08/24/19 12:56 DC Lidocaine (Lidoderm) 1 patch DAILY 08/24/19 10:00 08/24/19 12:39 1 PATCH Lorazepam (Ativan) 0.5 mg PRN Q4HRS PRN 08/24/19 12:15 Midazolam HCl 50 mg/Sodium Chloride 50 ml @ 1 mls/hr CONT PRN 08/25/19 00:00 UNV Miscellaneous (Lidoderm Patch Removal) 1 ea QHS 08/24/19 21:00 Morphine Sulfate (Morphine Sulfate) 2 mg PRN Q2HR PRN 08/23/19 20:00 08/24/19 19:59 DC Norepinephrine Bitartrate 8 mg/ Dextrose 258 ml @ 17.512 mls/ hr CONT PRN 08/25/19 02:00 Ondansetron HCl (Zofran Odt) 4 mg PRN Q8HRS PRN 08/24/19 09:45 08/24/19 12:36 4 MG Ondansetron HCl (Zofran) 4 mg PRN Q4HRS PRN 08/24/19 12:15 Pantoprazole Sodium (Protonix) 40 mg DAILYAC 08/24/19 10:00 08/25/19 10:47 40 MG Propofol 100 ml @ As Directed STK-MED ONCE 08/24/19 22:26 08/24/19 22:27 DC Sodium Chloride 500 ml @ 500 mls/hr 1X ONCE 08/25/19 02:00 08/25/19 02:59 DC 08/25/19 01:00 500 MLS/HR Sodium Chloride (Normal Saline Flush) 3 ml QSHIFT PRN 08/24/19 12:15 Succinylcholine Chloride (Anectine) 200 mg STK-MED ONCE 08/25/19 03:33 08/25/19 03:34 DC Tramadol HCl (Ultram) 50 mg BID 08/24/19 09:00 08/24/19 19:54 50 MG Vasopressin 20 unit/Dextrose 101 ml @ 12 mls/hr CONT PRN 08/24/19 12:30 Zolpidem Tartrate (Ambien) 5 mg PRN QHS PRN 08/24/19 00:45 Lab Laboratory Tests Test 08/24/19 13:35 08/24/19 14:38 08/25/19 00:16 08/25/19 04:00 Prothrombin Time 13.4 SEC (11.7-14.0) Prothromb Time International Ratio 1.1 (0.8-1.1) Activated Partial Thromboplast Time 36 SEC (24-38) Fibrinogen 766 mg/dL (200-440) D-Dimer (Stefanie) 0.71 ug/mlFEU (0.00-0.50) Lactic Acid Level 0.8 mmol/L (0.4-2.0) Procalcitonin 0.16 ng/mL (0.00-0.10) Urine Collection Type Unknown Urine Color Yellow Urine Clarity Clear Urine pH 6.0 (<5.0-8.0) Urine Specific Wallace 1.010 (1.000-1.030) Urine Protein Negative mg/dL (NEG-TRACE) Urine Glucose (UA) Negative mg/dL (NEG) Urine Ketones (Stick) Trace mg/dL (NEG) Urine Blood Negative (NEG) Urine Nitrite Negative (NEG) Urine Bilirubin Negative (NEG) Urine Urobilinogen Dipstick 0.2 mg/dL (0.2 mg/dL) Urine Leukocyte Esterase Negative (NEG) Urine RBC 0 /HPF (0-2) Urine WBC 1-4 /HPF (0-4) Urine Squamous Epithelial Cells Mod /LPF Urine Bacteria Mod /HPF (0-FEW) Urine Mucus Slight /LPF O2 Saturation 98 % (92-99) Arterial Blood pH 7.37 (7.35-7.45) Arterial Blood pCO2 at Patient Temp 35 mmHg (35-46) Arterial Blood pO2 at Patient Temp 109 mmHg (65-108) Arterial Blood HCO3 20 mmol/L (21-28) Arterial Blood Base Excess -5 mmol/L (-3-3) FiO2 80 White Blood Count 4.9 x10^3/uL (4.0-11.0) Red Blood Count 4.15 x10^6/uL (3.50-5.40) Hemoglobin 11.6 g/dL (12.0-15.5) Hematocrit 35.3 % (36.0-47.0) Mean Corpuscular Volume 85 fL (79-100) Mean Corpuscular Hemoglobin 28 pg (25-35) Mean Corpuscular Hemoglobin Concent 33 g/dL (31-37) Red Cell Distribution Width 13.2 % (11.5-14.5) Platelet Count 214 x10^3/uL (140-400) Neutrophils (%) (Auto) 69 % (31-73) Lymphocytes (%) (Auto) 17 % (24-48) Monocytes (%) (Auto) 14 % (0-9) Eosinophils (%) (Auto) 1 % (0-3) Basophils (%) (Auto) 0 % (0-3) Neutrophils # (Auto) 3.4 x10^3/uL (1.8-7.7) Lymphocytes # (Auto) 0.8 x10^3/uL (1.0-4.8) Monocytes # (Auto) 0.7 x10^3/uL (0.0-1.1) Eosinophils # (Auto) 0.0 x10^3/uL (0.0-0.7) Basophils # (Auto) 0.0 x10^3/uL (0.0-0.2) Sodium Level 137 mmol/L (136-145) Potassium Level 4.7 mmol/L (3.5-5.1) Chloride Level 104 mmol/L (98-107) Carbon Dioxide Level 23 mmol/L (21-32) Anion Gap 10 (6-14) Blood Urea Nitrogen 10 mg/dL (7-20) Creatinine 0.9 mg/dL (0.6-1.0) Estimated GFR (Cockcroft-Gault) 62.8 Glucose Level 97 mg/dL (70-99) Calcium Level 8.5 mg/dL (8.5-10.1) Phosphorus Level 3.1 mg/dL (2.6-4.7) Creatine Kinase 80 U/L (26-192) Albumin 2.1 g/dL (3.4-5.0) Test 08/25/19 08:00 O2 Saturation 99 % (92-99) Arterial Blood pH 7.39 (7.35-7.45) Arterial Blood pCO2 at Patient Temp 36 mmHg (35-46) Arterial Blood pO2 at Patient Temp 180 mmHg (65-108) Arterial Blood HCO3 21 mmol/L (21-28) Arterial Blood Base Excess -3 mmol/L (-3-3) FiO2 80 Results All relevant outside records, renal labs, imaging studies, telemetry/EKG's were reviewed. PRICILA BARAJAS MD Aug 25, 2019 12:31
[2019-08-25] MEDS ORDERED: MIDAZOLAM HCL 100 MG in IV NORMAL SALINE 100ML 100 ML IV PRN (13:00)
--- NOTE | 2019-08-25 13:47 | PDOC ---
[employer] PROGRESS NOTE Chief Complaint Chief Complaint Acute hypoxic resp failure Severe acute pneumonia with New bilateral perihilar and peripheral 5 lobe groundglass lung infiltrates are seen and this may be due to pulmonary edema or could be infectious or inflammatory in nature. Aspiration pneumonitis is in the differential diagnosis. Fevers GERD Acute kidney injury Probable Covid 19 Asthma Hypertension Dehydration Sepsis Severe malnutrition History of Present Illness History of Present Illness [id number] Patient seen and examined Discussed with RN I called the pharmacy to start some azithromycin because she is now mycoplasma positive Mechanically ventilated Before meals/18/450/50% Chart reviewed Prognosis guarded Vitals/I&O Vitals/I&O: Vital Signs Date Time Temp Pulse Resp B/P (MAP) Pulse Ox O2 Delivery O2 Flow Rate FiO2 08/25/19 13:37 71 18 85/47 (60) 94 Ventilator 08/25/19 11:59 50.0 08/25/19 11:28 100.6 100.6 I & O 08/24/19 08/24/19 08/25/19 14:59 22:59 06:59 Intake Total 250 ml 690 ml Output Total 300 ml 925 ml 625 ml Balance -50 ml -925 ml 65 ml Physical Exam General: No acute distress, Other Heart: Regular rate (sedated and intubated), Normal S1 Lungs: Crackles Abdomen: Soft Extremities: No cyanosis Skin: No rashes, No breakdown Labs Labs: Laboratory Tests Test 08/24/19 14:38 08/25/19 00:16 08/25/19 04:00 08/25/19 08:00 Urine Collection Type Unknown Urine Color Yellow Urine Clarity Clear Urine pH 6.0 (<5.0-8.0) Urine Specific [place] 1.010 (1.000-1.030) Urine Protein Negative mg/dL (NEG-TRACE) Urine Glucose (UA) Negative mg/dL (NEG) Urine Ketones (Stick) Trace mg/dL (NEG) Urine Blood Negative (NEG) Urine Nitrite Negative (NEG) Urine Bilirubin Negative (NEG) Urine Urobilinogen Dipstick 0.2 mg/dL (0.2 mg/dL) Urine Leukocyte Esterase Negative (NEG) Urine RBC 0 /HPF (0-2) Urine WBC 1-4 /HPF (0-4) Urine Squamous Epithelial Cells Mod /LPF Urine Bacteria Mod /HPF (0-FEW) Urine Mucus Slight /LPF O2 Saturation 98 % (92-99) 99 % (92-99) Arterial Blood pH 7.37 (7.35-7.45) 7.39 (7.35-7.45) Arterial Blood pCO2 at Patient Temp 35 mmHg (35-46) 36 mmHg (35-46) Arterial Blood pO2 at Patient Temp 109 mmHg (65-108) 180 mmHg (65-108) Arterial Blood HCO3 20 mmol/L (21-28) 21 mmol/L (21-28) Arterial Blood Base Excess -5 mmol/L (-3-3) -3 mmol/L (-3-3) FiO2 80 80 White Blood Count 4.9 x10^3/uL (4.0-11.0) Red Blood Count 4.15 x10^6/uL (3.50-5.40) Hemoglobin 11.6 g/dL (12.0-15.5) Hematocrit 35.3 % (36.0-47.0) Mean Corpuscular Volume 85 fL (79-100) Mean Corpuscular Hemoglobin 28 pg (25-35) Mean Corpuscular Hemoglobin Concent 33 g/dL (31-37) Red Cell Distribution Width 13.2 % (11.5-14.5) Platelet Count 214 x10^3/uL (140-400) Neutrophils (%) (Auto) 69 % (31-73) Lymphocytes (%) (Auto) 17 % (24-48) Monocytes (%) (Auto) 14 % (0-9) Eosinophils (%) (Auto) 1 % (0-3) Basophils (%) (Auto) 0 % (0-3) Neutrophils # (Auto) 3.4 x10^3/uL (1.8-7.7) Lymphocytes # (Auto) 0.8 x10^3/uL (1.0-4.8) Monocytes # (Auto) 0.7 x10^3/uL (0.0-1.1) Eosinophils # (Auto) 0.0 x10^3/uL (0.0-0.7) Basophils # (Auto) 0.0 x10^3/uL (0.0-0.2) Sodium Level 137 mmol/L (136-145) Potassium Level 4.7 mmol/L (3.5-5.1) Chloride Level 104 mmol/L (98-107) Carbon Dioxide Level 23 mmol/L (21-32) Anion Gap 10 (6-14) Blood Urea Nitrogen 10 mg/dL (7-20) Creatinine 0.9 mg/dL (0.6-1.0) Estimated GFR (Cockcroft-Gault) 62.8 Glucose Level 97 mg/dL (70-99) Calcium Level 8.5 mg/dL (8.5-10.1) Phosphorus Level 3.1 mg/dL (2.6-4.7) Creatine Kinase 80 U/L (26-192) Albumin 2.1 g/dL (3.4-5.0) Assessment and Plan Assessmemt and Plan Problems Medical Problems: (1) Hypotension Status: Acute (2) Hypoxia Status: Acute (3) Right-sided chest pain Status: Acute (4) Suspected 2019-nCoV infection Status: Acute Acute hypoxic resp failure Severe acute pneumonia with New bilateral perihilar and peripheral 5 lobe groundglass lung infiltrates are seen and this may be due to pulmonary edema or could be infectious or inflammatory in nature. Aspiration pneumonitis is in the differential diagnosis. Fevers GERD Acute kidney injury Probable Covid 19 Asthma Hypertension Dehydration Sepsis Severe malnutrition Plan Add azithromycin ICU monitoring Await Covid 19 testing Appreciate pulmonary input Mechanical ventilation Broad-spectrum antibiotics Sepsis protocol Full code Trend labs Prognosis guarded DVT prophylaxis She is critically ill Total time 34 minutes Comment Review of Relevant I have reviewed the following items tori (where applicable) has been applied. Medications: Current Medications Medications (Trade) Dose Ordered Sig/Eder Route PRN Reason Start Time Stop Time Status Last Admin Dose Admin Sodium Chloride 1,000 ml @ 100 mls/hr Q10H IV 08/24/19 20:00 08/25/19 12:00 Enoxaparin Sodium (Lovenox 40mg Syringe) 40 mg Q24H SQ 08/24/19 16:00 08/24/19 16:48 Cefepime HCl (Maxipime) 2 gm Q12HR IVP 08/24/19 14:00 08/25/19 12:15 Azithromycin (Zithromax) 250 mg DAILY PO 08/25/19 09:00 08/28/19 09:01 08/25/19 10:46 Hydroxychloroquine Sulfate (Plaquenil) 400 mg BID PO 08/24/19 14:00 08/24/19 21:01 DC 08/24/19 19:53 Hydroxychloroquine Sulfate (Plaquenil) 200 mg BID PO 08/25/19 09:00 08/28/19 21:01 08/25/19 10:46 Fentanyl Citrate 30 ml @ 0 mls/hr CONT PRN IV SEE PROTOCOL 08/24/19 22:30 08/25/19 03:57 Propofol 100 ml @ 0 mls/hr CONT PRN IV SEE PROTOCOL 08/24/19 22:30 08/24/19 23:42 Succinylcholine Chloride (Anectine) 200 mg 1X ONCE IV 08/24/19 23:00 08/24/19 23:01 DC 08/24/19 23:41 Midazolam HCl 50 mg/Sodium Chloride 50 ml @ 1 mls/hr CONT PRN IV SEE I/O RECORD 08/25/19 00:00 08/25/19 15:59 08/25/19 05:28 Sodium Chloride 500 ml @ 500 mls/hr 1X ONCE IV 08/25/19 02:00 08/25/19 02:59 DC 08/25/19 01:00 Gabapentin (Neurontin) 800 mg BID PO 08/25/19 09:00 08/25/19 10:46 Acetaminophen (Tylenol) 650 mg PRN Q6HRS PRN PEG MILD PAIN / TEMP 08/25/19 12:15 08/25/19 12:15 WESLY BOSS III DO Aug 25, 2019 13:47
--- NOTE | 2019-08-25 14:10 | PDOC ---
PULMONARY PROGRESS NOTES Subjective Patient currently sedated, assist control ventilation rate of 18, tidal volume 450, 50% FiO2, 5 of PEEP Peak airway pressures 25 heart rate of 75 sedated Vitals Vital Signs Date Time Temp Pulse Resp B/P (MAP) Pulse Ox O2 Delivery O2 Flow Rate FiO2 08/25/19 13:37 71 18 85/47 (60) 94 Ventilator 08/25/19 11:59 50.0 08/25/19 11:28 100.6 100.6 Lungs: Crackles Cardiovascular: S1, S2 Abdomen: Soft Extremities: No Edema Skin: Warm Labs Laboratory Tests Test 08/23/19 17:10 08/23/19 17:53 08/24/19 10:05 08/24/19 13:35 White Blood Count 7.6 x10^3/uL (4.0-11.0) Red Blood Count 4.75 x10^6/uL (3.50-5.40) Hemoglobin 13.6 g/dL (12.0-15.5) Hematocrit 40.1 % (36.0-47.0) Mean Corpuscular Volume 84 fL (79-100) Mean Corpuscular Hemoglobin 29 pg (25-35) Mean Corpuscular Hemoglobin Concent 34 g/dL (31-37) Red Cell Distribution Width 13.1 % (11.5-14.5) Platelet Count 243 x10^3/uL (140-400) Neutrophils (%) (Auto) 79 % (31-73) Lymphocytes (%) (Auto) 10 % (24-48) Monocytes (%) (Auto) 10 % (0-9) Eosinophils (%) (Auto) 0 % (0-3) Basophils (%) (Auto) 0 % (0-3) Neutrophils # (Auto) 6.0 x10^3/uL (1.8-7.7) Lymphocytes # (Auto) 0.8 x10^3/uL (1.0-4.8) Monocytes # (Auto) 0.8 x10^3/uL (0.0-1.1) Eosinophils # (Auto) 0.0 x10^3/uL (0.0-0.7) Basophils # (Auto) 0.0 x10^3/uL (0.0-0.2) Prothrombin Time 12.4 SEC (11.7-14.0) 13.4 SEC (11.7-14.0) Prothromb Time International Ratio 1.0 (0.8-1.1) 1.1 (0.8-1.1) D-Dimer (Stefanie) 0.46 ug/mlFEU (0.00-0.50) 0.71 ug/mlFEU (0.00-0.50) Sodium Level 136 mmol/L (136-145) Potassium Level 5.1 mmol/L (3.5-5.1) Chloride Level 101 mmol/L (98-107) Carbon Dioxide Level 22 mmol/L (21-32) Anion Gap 13 (6-14) Blood Urea Nitrogen 30 mg/dL (7-20) Creatinine 1.9 mg/dL (0.6-1.0) Estimated GFR (Cockcroft-Gault) 26.5 BUN/Creatinine Ratio 16 (6-20) Glucose Level 96 mg/dL (70-99) Lactic Acid Level 1.1 mmol/L (0.4-2.0) 0.8 mmol/L (0.4-2.0) Calcium Level 9.0 mg/dL (8.5-10.1) Magnesium Level 2.1 mg/dL (1.8-2.4) Total Bilirubin 0.4 mg/dL (0.2-1.0) Aspartate Amino Transf (AST/SGOT) 31 U/L (15-37) Alanine Aminotransferase (ALT/SGPT) 31 U/L (14-59) Alkaline Phosphatase 116 U/L (46-116) Creatine Kinase 35 U/L (26-192) Troponin I Quantitative < 0.017 ng/mL (0.000-0.055) ZW-Xck-O-Type Natriuretic Peptide 257 pg/mL (0-124) Total Protein 7.6 g/dL (6.4-8.2) Albumin 2.8 g/dL (3.4-5.0) Albumin/Globulin Ratio 0.6 (1.0-1.7) Lipase 103 U/L (73-393) Influenza Type A Antigen Negative (NEGATIVE) Influenza Type B Antigen Negative (NEGATIVE) Mycoplasma Serology (LAB) Positive (NEGATIVE) Activated Partial Thromboplast Time 36 SEC (24-38) Fibrinogen 766 mg/dL (200-440) Procalcitonin 0.16 ng/mL (0.00-0.10) Test 08/24/19 14:38 08/25/19 00:16 08/25/19 04:00 08/25/19 08:00 Urine Collection Type Unknown Urine Color Yellow Urine Clarity Clear Urine pH 6.0 (<5.0-8.0) Urine Specific [place] 1.010 (1.000-1.030) Urine Protein Negative mg/dL (NEG-TRACE) Urine Glucose (UA) Negative mg/dL (NEG) Urine Ketones (Stick) Trace mg/dL (NEG) Urine Blood Negative (NEG) Urine Nitrite Negative (NEG) Urine Bilirubin Negative (NEG) Urine Urobilinogen Dipstick 0.2 mg/dL (0.2 mg/dL) Urine Leukocyte Esterase Negative (NEG) Urine RBC 0 /HPF (0-2) Urine WBC 1-4 /HPF (0-4) Urine Squamous Epithelial Cells Mod /LPF Urine Bacteria Mod /HPF (0-FEW) Urine Mucus Slight /LPF O2 Saturation 98 % (92-99) 99 % (92-99) Arterial Blood pH 7.37 (7.35-7.45) 7.39 (7.35-7.45) Arterial Blood pCO2 at Patient Temp 35 mmHg (35-46) 36 mmHg (35-46) Arterial Blood pO2 at Patient Temp 109 mmHg (65-108) 180 mmHg (65-108) Arterial Blood HCO3 20 mmol/L (21-28) 21 mmol/L (21-28) Arterial Blood Base Excess -5 mmol/L (-3-3) -3 mmol/L (-3-3) FiO2 80 80 White Blood Count 4.9 x10^3/uL (4.0-11.0) Red Blood Count 4.15 x10^6/uL (3.50-5.40) Hemoglobin 11.6 g/dL (12.0-15.5) Hematocrit 35.3 % (36.0-47.0) Mean Corpuscular Volume 85 fL (79-100) Mean Corpuscular Hemoglobin 28 pg (25-35) Mean Corpuscular Hemoglobin Concent 33 g/dL (31-37) Red Cell Distribution Width 13.2 % (11.5-14.5) Platelet Count 214 x10^3/uL (140-400) Neutrophils (%) (Auto) 69 % (31-73) Lymphocytes (%) (Auto) 17 % (24-48) Monocytes (%) (Auto) 14 % (0-9) Eosinophils (%) (Auto) 1 % (0-3) Basophils (%) (Auto) 0 % (0-3) Neutrophils # (Auto) 3.4 x10^3/uL (1.8-7.7) Lymphocytes # (Auto) 0.8 x10^3/uL (1.0-4.8) Monocytes # (Auto) 0.7 x10^3/uL (0.0-1.1) Eosinophils # (Auto) 0.0 x10^3/uL (0.0-0.7) Basophils # (Auto) 0.0 x10^3/uL (0.0-0.2) Sodium Level 137 mmol/L (136-145) Potassium Level 4.7 mmol/L (3.5-5.1) Chloride Level 104 mmol/L (98-107) Carbon Dioxide Level 23 mmol/L (21-32) Anion Gap 10 (6-14) Blood Urea Nitrogen 10 mg/dL (7-20) Creatinine 0.9 mg/dL (0.6-1.0) Estimated GFR (Cockcroft-Gault) 62.8 Glucose Level 97 mg/dL (70-99) Calcium Level 8.5 mg/dL (8.5-10.1) Phosphorus Level 3.1 mg/dL (2.6-4.7) Creatine Kinase 80 U/L (26-192) Albumin 2.1 g/dL (3.4-5.0) Laboratory Tests Test 08/24/19 14:38 08/25/19 00:16 08/25/19 04:00 08/25/19 08:00 Urine Collection Type Unknown Urine Color Yellow Urine Clarity Clear Urine pH 6.0 (<5.0-8.0) Urine Specific [place] 1.010 (1.000-1.030) Urine Protein Negative mg/dL (NEG-TRACE) Urine Glucose (UA) Negative mg/dL (NEG) Urine Ketones (Stick) Trace mg/dL (NEG) Urine Blood Negative (NEG) Urine Nitrite Negative (NEG) Urine Bilirubin Negative (NEG) Urine Urobilinogen Dipstick 0.2 mg/dL (0.2 mg/dL) Urine Leukocyte Esterase Negative (NEG) Urine RBC 0 /HPF (0-2) Urine WBC 1-4 /HPF (0-4) Urine Squamous Epithelial Cells Mod /LPF Urine Bacteria Mod /HPF (0-FEW) Urine Mucus Slight /LPF O2 Saturation 98 % (92-99) 99 % (92-99) Arterial Blood pH 7.37 (7.35-7.45) 7.39 (7.35-7.45) Arterial Blood pCO2 at Patient Temp 35 mmHg (35-46) 36 mmHg (35-46) Arterial Blood pO2 at Patient Temp 109 mmHg (65-108) 180 mmHg (65-108) Arterial Blood HCO3 20 mmol/L (21-28) 21 mmol/L (21-28) Arterial Blood Base Excess -5 mmol/L (-3-3) -3 mmol/L (-3-3) FiO2 80 80 White Blood Count 4.9 x10^3/uL (4.0-11.0) Red Blood Count 4.15 x10^6/uL (3.50-5.40) Hemoglobin 11.6 g/dL (12.0-15.5) Hematocrit 35.3 % (36.0-47.0) Mean Corpuscular Volume 85 fL (79-100) Mean Corpuscular Hemoglobin 28 pg (25-35) Mean Corpuscular Hemoglobin Concent 33 g/dL (31-37) Red Cell Distribution Width 13.2 % (11.5-14.5) Platelet Count 214 x10^3/uL (140-400) Neutrophils (%) (Auto) 69 % (31-73) Lymphocytes (%) (Auto) 17 % (24-48) Monocytes (%) (Auto) 14 % (0-9) Eosinophils (%) (Auto) 1 % (0-3) Basophils (%) (Auto) 0 % (0-3) Neutrophils # (Auto) 3.4 x10^3/uL (1.8-7.7) Lymphocytes # (Auto) 0.8 x10^3/uL (1.0-4.8) Monocytes # (Auto) 0.7 x10^3/uL (0.0-1.1) Eosinophils # (Auto) 0.0 x10^3/uL (0.0-0.7) Basophils # (Auto) 0.0 x10^3/uL (0.0-0.2) Sodium Level 137 mmol/L (136-145) Potassium Level 4.7 mmol/L (3.5-5.1) Chloride Level 104 mmol/L (98-107) Carbon Dioxide Level 23 mmol/L (21-32) Anion Gap 10 (6-14) Blood Urea Nitrogen 10 mg/dL (7-20) Creatinine 0.9 mg/dL (0.6-1.0) Estimated GFR (Cockcroft-Gault) 62.8 Glucose Level 97 mg/dL (70-99) Calcium Level 8.5 mg/dL (8.5-10.1) Phosphorus Level 3.1 mg/dL (2.6-4.7) Creatine Kinase 80 U/L (26-192) Albumin 2.1 g/dL (3.4-5.0) Medications Active Scripts Medications Dose Route/Sig Max Daily Dose Days Date Category Dose Instructions Pyridium (Phenazopyridine Hcl) 200 Mg Tablet 1 Tab PO TID 3 04/16/19 Rx Ciprofloxacin Hcl 500 Mg Tablet 1 Tab PO BID 04/16/19 Rx Lidocaine PATCH (Lidocaine) 1 Each Adh..patch 1 Patch TD DAILY 04/16/19 Rx Metoprolol Tartrate 25 Mg Tablet 25 Mg PO BID 04/15/19 Reported Fiorinal 50-325-40 Mg Capsule (Butalbital/Aspirin/Caffeine) 1 Each Capsule 1 Each PO Q6HRS PRN 03/27/19 Rx Zofran (Ondansetron Hcl) 4 Mg Tablet 4 Mg PO PRN TID PRN 03/27/19 Rx nausea/vomiting Tylenol (Acetaminophen) 325 Mg Tablet 650 Mg PO PRN Q6HRS PRN 30 03/06/19 Rx Pantoprazole Sodium (Pantoprazole Sodium) 40 Mg Tablet.dr 40 Mg PO DAILYAC 30 03/06/19 Rx Dicyclomine Hcl 10 Mg Capsule 1 Cap PO BID PRN 11/27/18 Reported Imitrex (Sumatriptan Succinate) 100 Mg Tablet 1 Tab PO BID PRN 11/27/18 Reported Hydroxyzine Hcl 25 Mg Tablet 1 Tab PO DAILY PRN 11/27/18 Reported Diclofenac Sodium 75 Mg Tablet.dr 1 Tab PO BID 11/27/18 Reported Zolpidem Tartrate 10 Mg Tablet 10 Mg PO HS 11/27/18 Reported Lisinopril 10 Mg Tablet 1 Tab PO HS 06/14/18 Reported Gabapentin 800 Mg Tablet 1 Tab PO BID 06/17/14 Reported Cyclobenzaprine Hcl 10 Mg Tablet 1 Tab PO BID PRN 06/17/14 Reported Colestipol Hcl 1 Gm Tablet 1 Gm PO BID 06/17/14 Reported Tramadol Hcl 50 Mg Tablet 1 Tab PO BID 06/17/14 Reported Impression . 1. Pneumonia. 2. Renal insufficiency. 3. Acute respiratory failure multifactorial 4. Abnormal CT of the chest, could be gram-negative gram-positive pneumonia, possible viral. 5. Covidien 19 suspect IMPRESSION: New bilateral perihilar and peripheral 5 lobe groundglass lung infiltrates are seen and this may be due to pulmonary edema or could be infectious or inflammatory in nature. Aspiration pneumonitis is in the differential diagnosis. Plan . Continue current vent settings Continue empiric antibiotic Labs reviewed Pro calcitonin noted ABG noted Continue current support follow labs, ABG, chest x-ray. Note from Dr. Jordan, 08/24 If she were to deteriorate further, I would consider adding vancomycin and Zosyn. Also, the use of tocilizumab would be appropriate if she has life-threatening condition. JOSE CARLOS ROACH MD Aug 25, 2019 14:10
[2019-08-25] MEDS: MIDAZOLAM HCL 100 MG in IV NORMAL SALINE 100ML 100 ML IV PRN (15:10)
[2019-08-25] MEDS: ENOXAPARIN 40 MG/0.4 ML SYRINGE. SQ SCH (18:09)
[2019-08-25] MEDS: PATCH REMOVAL. MC SCH (20:34)
[2019-08-26] VITALS (26 sets, daily range): BP systolic 89–146; BP diastolic 41–67
[2019-08-26] MEDS: IPRATRPIUM/ALBUTEROL 0.5/2.5MG 3 ML NEBU. NEB SCH ×5 (00:50→16:00)
[2019-08-26] MEDS: MIDAZOLAM HCL 100 MG in IV NORMAL SALINE 100ML 100 ML IV PRN ×2 (05:11→17:04)
[2019-08-26] MEDS: PANTOPRAZOLE 40 MG TABLET.DR. PO SCH (08:35)
[2019-08-26] MEDS: AZITHROMYCIN 250 MG TABLET. PO SCH (08:36)
[2019-08-26] MEDS: LIDOCAINE (700MG/PATCH) PATCH. TD SCH (08:36)
[2019-08-26] MEDS: COLESTIPOL HCL 1 GM TABLET PO SCH ×2 (08:36→21:35)
[2019-08-26] MEDS: traMADol 50 MG TABLET PO SCH ×2 (08:36→21:30)
[2019-08-26] MEDS: GABAPENTIN 400 MG CAPSULE. PO SCH ×2 (08:36→21:34)
[2019-08-26] MEDS: HYDROXYCHLOROQUINE 200 MG TABLET PO SCH ×2 (08:36→21:36)
[2019-08-26 09:38] LABS: BASE EXCESS ABG -4 mmol/L (-3-3); HCO3 ABG 21 mmol/L (21-28); PCO2 ABG 38 mmHg (35-46); PO2 ABG 96 mmHg (65-108); SAT O2 ABG 97 % (92-99)
[2019-08-26 09:52] LABS: FIO2 ABG 50%+%
--- NOTE | 2019-08-26 09:59 | PDOC ---
PULMONARY PROGRESS NOTES Subjective Patient currently sedated, assist control ventilation. Rate of 18, 50% FiO2, 450 tidal volume peak pressure 21 Currently off of pressors Vitals Vital Signs Date Time Temp Pulse Resp B/P (MAP) Pulse Ox O2 Delivery O2 Flow Rate FiO2 08/26/19 08:39 99.4 75 18 131/60 (83) 95 Ventilator 99.4 08/26/19 08:00 50.0 Lungs: Crackles Cardiovascular: S1, S2 Abdomen: Soft Extremities: No Edema Skin: Warm Labs Laboratory Tests Test 08/24/19 10:05 08/24/19 13:35 08/24/19 14:38 08/25/19 00:16 Mycoplasma Serology (LAB) Positive (NEGATIVE) Prothrombin Time 13.4 SEC (11.7-14.0) Prothromb Time International Ratio 1.1 (0.8-1.1) Activated Partial Thromboplast Time 36 SEC (24-38) Fibrinogen 766 mg/dL (200-440) D-Dimer (Stefanie) 0.71 ug/mlFEU (0.00-0.50) Lactic Acid Level 0.8 mmol/L (0.4-2.0) Procalcitonin 0.16 ng/mL (0.00-0.10) Urine Collection Type Unknown Urine Color Yellow Urine Clarity Clear Urine pH 6.0 (<5.0-8.0) Urine Specific [place] 1.010 (1.000-1.030) Urine Protein Negative mg/dL (NEG-TRACE) Urine Glucose (UA) Negative mg/dL (NEG) Urine Ketones (Stick) Trace mg/dL (NEG) Urine Blood Negative (NEG) Urine Nitrite Negative (NEG) Urine Bilirubin Negative (NEG) Urine Urobilinogen Dipstick 0.2 mg/dL (0.2 mg/dL) Urine Leukocyte Esterase Negative (NEG) Urine RBC 0 /HPF (0-2) Urine WBC 1-4 /HPF (0-4) Urine Squamous Epithelial Cells Mod /LPF Urine Bacteria Mod /HPF (0-FEW) Urine Mucus Slight /LPF O2 Saturation 98 % (92-99) Arterial Blood pH 7.37 (7.35-7.45) Arterial Blood pCO2 at Patient Temp 35 mmHg (35-46) Arterial Blood pO2 at Patient Temp 109 mmHg (65-108) Arterial Blood HCO3 20 mmol/L (21-28) Arterial Blood Base Excess -5 mmol/L (-3-3) FiO2 80 Test 08/25/19 04:00 08/25/19 08:00 White Blood Count 4.9 x10^3/uL (4.0-11.0) Red Blood Count 4.15 x10^6/uL (3.50-5.40) Hemoglobin 11.6 g/dL (12.0-15.5) Hematocrit 35.3 % (36.0-47.0) Mean Corpuscular Volume 85 fL (79-100) Mean Corpuscular Hemoglobin 28 pg (25-35) Mean Corpuscular Hemoglobin Concent 33 g/dL (31-37) Red Cell Distribution Width 13.2 % (11.5-14.5) Platelet Count 214 x10^3/uL (140-400) Neutrophils (%) (Auto) 69 % (31-73) Lymphocytes (%) (Auto) 17 % (24-48) Monocytes (%) (Auto) 14 % (0-9) Eosinophils (%) (Auto) 1 % (0-3) Basophils (%) (Auto) 0 % (0-3) Neutrophils # (Auto) 3.4 x10^3/uL (1.8-7.7) Lymphocytes # (Auto) 0.8 x10^3/uL (1.0-4.8) Monocytes # (Auto) 0.7 x10^3/uL (0.0-1.1) Eosinophils # (Auto) 0.0 x10^3/uL (0.0-0.7) Basophils # (Auto) 0.0 x10^3/uL (0.0-0.2) Sodium Level 137 mmol/L (136-145) Potassium Level 4.7 mmol/L (3.5-5.1) Chloride Level 104 mmol/L (98-107) Carbon Dioxide Level 23 mmol/L (21-32) Anion Gap 10 (6-14) Blood Urea Nitrogen 10 mg/dL (7-20) Creatinine 0.9 mg/dL (0.6-1.0) Estimated GFR (Cockcroft-Gault) 62.8 Glucose Level 97 mg/dL (70-99) Calcium Level 8.5 mg/dL (8.5-10.1) Phosphorus Level 3.1 mg/dL (2.6-4.7) Creatine Kinase 80 U/L (26-192) Albumin 2.1 g/dL (3.4-5.0) O2 Saturation 99 % (92-99) Arterial Blood pH 7.39 (7.35-7.45) Arterial Blood pCO2 at Patient Temp 36 mmHg (35-46) Arterial Blood pO2 at Patient Temp 180 mmHg (65-108) Arterial Blood HCO3 21 mmol/L (21-28) Arterial Blood Base Excess -3 mmol/L (-3-3) FiO2 80 Medications Active Scripts Medications Dose Route/Sig Max Daily Dose Days Date Category Dose Instructions Pyridium (Phenazopyridine Hcl) 200 Mg Tablet 1 Tab PO TID 3 04/16/19 Rx Ciprofloxacin Hcl 500 Mg Tablet 1 Tab PO BID 04/16/19 Rx Lidocaine PATCH (Lidocaine) 1 Each Adh..patch 1 Patch TD DAILY 04/16/19 Rx Metoprolol Tartrate 25 Mg Tablet 25 Mg PO BID 04/15/19 Reported Fiorinal 50-325-40 Mg Capsule (Butalbital/Aspirin/Caffeine) 1 Each Capsule 1 Each PO Q6HRS PRN 03/27/19 Rx Zofran (Ondansetron Hcl) 4 Mg Tablet 4 Mg PO PRN TID PRN 03/27/19 Rx nausea/vomiting Tylenol (Acetaminophen) 325 Mg Tablet 650 Mg PO PRN Q6HRS PRN 30 03/06/19 Rx Pantoprazole Sodium (Pantoprazole Sodium) 40 Mg Tablet.dr 40 Mg PO DAILYAC 30 03/06/19 Rx Dicyclomine Hcl 10 Mg Capsule 1 Cap PO BID PRN 11/27/18 Reported Imitrex (Sumatriptan Succinate) 100 Mg Tablet 1 Tab PO BID PRN 11/27/18 Reported Hydroxyzine Hcl 25 Mg Tablet 1 Tab PO DAILY PRN 11/27/18 Reported Diclofenac Sodium 75 Mg Tablet.dr 1 Tab PO BID 11/27/18 Reported Zolpidem Tartrate 10 Mg Tablet 10 Mg PO HS 11/27/18 Reported Lisinopril 10 Mg Tablet 1 Tab PO HS 06/14/18 Reported Gabapentin 800 Mg Tablet 1 Tab PO BID 06/17/14 Reported Cyclobenzaprine Hcl 10 Mg Tablet 1 Tab PO BID PRN 06/17/14 Reported Colestipol Hcl 1 Gm Tablet 1 Gm PO BID 06/17/14 Reported Tramadol Hcl 50 Mg Tablet 1 Tab PO BID 06/17/14 Reported Impression . 1. Pneumonia, mycoplasma positive 2. Renal insufficiency. 3. Acute respiratory failure multifactorial/ARDS 4. COVID-19 positive test (U07.1, COVID-19) with Acute Respiratory Distress Syndrome (ARDS) (J80, ARDS) (If respiratory failure or sepsis present, add as separate assessment) 5. Protein malnutrition present upon admission, severe IMPRESSION: New bilateral perihilar and peripheral 5 lobe groundglass lung infiltrates are seen and this may be due to pulmonary edema or could be infectious or inflammatory in nature. Aspiration pneumonitis is in the differential diagnosis. Plan . Continue Zithromax, Plaquenil. Continue current vent settings Repeat fibrinogen, d-dimer Labs reviewed Pro calcitonin noted ABG noted Continue current support follow labs, ABG, chest x-ray. Note from Dr. Jordan, 08/24, for now patient clinically improving If she were to deteriorate further, I would consider adding vancomycin and Zosyn. Also, the use of tocilizumab would be appropriate if she has life-threatening condition. Cumulative critical care time of 40 minutes, reviewing data, labs, chest x-ray, making adjustments on mechanical ventilation, case discussed with JOSE CARLOS Perez MD Aug 26, 2019 09:59
[2019-08-26] MEDS: IV NORMAL SALINE 1000ML BAG 1,000 ML IV SCH ×3 (10:07→19:10)
[2019-08-26] MEDS: CEFEPIME HCL IV Push 2 GM VIAL. IVP SCH ×2 (11:02→21:33)
[2019-08-26 12:34] LABS: D-DIMER 0.74 ug/mlFEU (0.00-0.50)
[2019-08-26 13:13] LABS: CALCIUM 8.9 mg/dL (8.5-10.1); CREATININE 0.8 mg/dL (0.6-1.0); POTASSIUM 4.3 mmol/L (3.5-5.1)
--- NOTE | 2019-08-26 13:34 | PDOC ---
[employer] PROGRESS NOTE Chief Complaint Chief Complaint Acute hypoxic resp failure requiring intubation and mechanical ventilation Severe acute pneumonia with New bilateral perihilar and peripheral 5 lobe groun dglass lung infiltrates are seen and this may be due to pulmonary edema or could be infectious or inflammatory in nature. Aspiration pneumonitis is in the differential diagnosis. Fevers GERD Acute kidney injury Probable Covid 19 Asthma Hypertension Dehydration Sepsis Severe malnutrition History of Present Illness History of Present Illness [id number] Patient is mechanically ventilated assist-control/18/400/50% Her Covid 19 testing now is positive Chart reviewed Discussed with RN [id number] Patient seen and examined Discussed with RN I called the pharmacy to start some azithromycin because she is now mycoplasma positive Mechanically ventilated Before meals/18/450/50% Chart reviewed Prognosis guarded Vitals/I&O Vitals/I&O: Vital Signs Date Time Temp Pulse Resp B/P (MAP) Pulse Ox O2 Delivery O2 Flow Rate FiO2 08/26/19 12:22 Mechanical Ventilator 50.0 08/26/19 12:18 80 18 123/54 (77) 95 08/26/19 11:02 99.1 99.1 I & O 08/25/19 08/25/19 08/26/19 15:00 23:00 07:00 Intake Total 673 ml 890 ml Output Total 525 ml 835 ml 935 ml Balance -525 ml -162 ml -45 ml Physical Exam Physical Exam: She is sedated with Versed and fentanyl Also on levo fed drip General: No acute distress, Other (sedated on the vent) Heart: Regular rate (sedated and intubated), Normal S1 Lungs: Crackles Abdomen: Soft Extremities: No cyanosis Skin: No rashes, No breakdown Labs Labs: Laboratory Tests Test 08/26/19 08:00 08/26/19 11:30 O2 Saturation 97 % (92-99) Arterial Blood pH 7.36 (7.35-7.45) Arterial Blood pCO2 at Patient Temp 38 mmHg (35-46) Arterial Blood pO2 at Patient Temp 96 mmHg (65-108) Arterial Blood HCO3 21 mmol/L (21-28) Arterial Blood Base Excess -4 mmol/L (-3-3) FiO2 50%+% Fibrinogen 692 mg/dL (200-440) D-Dimer (Stefanie) 0.74 ug/mlFEU (0.00-0.50) Sodium Level 136 mmol/L (136-145) Potassium Level 4.3 mmol/L (3.5-5.1) Chloride Level 103 mmol/L (98-107) Carbon Dioxide Level 22 mmol/L (21-32) Anion Gap 11 (6-14) Blood Urea Nitrogen 10 mg/dL (7-20) Creatinine 0.8 mg/dL (0.6-1.0) Estimated GFR (Cockcroft-Gault) 72.0 Glucose Level 85 mg/dL (70-99) Calcium Level 8.9 mg/dL (8.5-10.1) Assessment and Plan Assessmemt and Plan Problems Medical Problems: (1) Hypotension Status: Acute (2) Hypoxia Status: Acute (3) Right-sided chest pain Status: Acute (4) Suspected 2019-nCoV infection Status: Acute Acute hypoxic resp failure Covid 19 positive Severe acute pneumonia with New bilateral perihilar and peripheral 5 lobe groundglass lung infiltrates are seen and this may be due to pulmonary edema or could be infectious or inflammatory in nature. Aspiration pneumonitis is in the differential diagnosis. Fevers GERD Acute kidney injury Probable Covid 19 Asthma Hypertension Dehydration Sepsis Severe malnutrition Plan Add azithromycin ICU monitoring Trying to titrate off levo fed Appreciate pulmonary input Mechanical ventilation Broad-spectrum antibiotics Sepsis protocol Full code Trend labs Prognosis guarded DVT prophylaxis She is critically ill Total time 32minutes Comment Review of Relevant I have reviewed the following items tori (where applicable) has been applied. Medications: Current Medications Medications (Trade) Dose Ordered Sig/Eder Route PRN Reason Start Time Stop Time Status Last Admin Dose Admin Midazolam HCl 100 mg/Sodium Chloride 100 ml @ 5 mls/hr CONT PRN IV SEE I/O RECORD 08/25/19 16:00 08/26/19 05:11 WESLY BOSS III DO Aug 26, 2019 13:34
[2019-08-26] MEDS: ENOXAPARIN 40 MG/0.4 ML SYRINGE. SQ SCH (17:05)
[2019-08-26] MEDS ORDERED: IPRATRPIUM/ALBUTEROL 0.5/2.5MG 3 ML NEBU. NEB PRN (17:15)
[2019-08-26] MEDS: PATCH REMOVAL. MC SCH (21:30)
[2019-08-27] VITALS (24 sets, daily range): BP systolic 108–145; BP diastolic 48–69
[2019-08-27 04:47] LABS: BASO % 0 % (0-3); EOS # 0.1 x10^3/uL (0.0-0.7); EOS % 2 % (0-3); HEMATOCRIT 38.4 % (36.0-47.0); HEMOGLOBIN 12.6 g/dL (12.0-15.5); LYMPH # 0.7 x10^3/uL (1.0-4.8); LYMPH % 12 % (24-48); MEAN CORPUSCULAR HEMOGLOBIN 28 pg (25-35); MEAN CORPUSCULAR HGB CONC 33 g/dL (31-37); MEAN CORPUSCULAR VOLUME 85 fL (79-100); MONO # 0.8 x10^3/uL (0.0-1.1); MONO % 14 % (0-9); NEUT % 72 % (31-73); PLATELET COUNT 317 x10^3/uL (140-400); RED BLOOD COUNT 4.52 x10^6/uL (3.50-5.40); RED CELL DISTRIBUTION WIDTH 13.3 % (11.5-14.5); WHITE BLOOD COUNT 5.6 x10^3/uL (4.0-11.0)
[2019-08-27] MEDS: IV NORMAL SALINE 1000ML BAG 1,000 ML IV SCH ×2 (05:48→16:47)
[2019-08-27] MEDS: MIDAZOLAM HCL 100 MG in IV NORMAL SALINE 100ML 100 ML IV PRN (07:42)
[2019-08-27] MEDS: COLESTIPOL HCL 1 GM TABLET PO SCH ×2 (07:51→22:10)
[2019-08-27] MEDS: HYDROXYCHLOROQUINE 200 MG TABLET PO SCH ×2 (07:52→22:10)
[2019-08-27] MEDS: traMADol 50 MG TABLET PO SCH ×2 (07:52→21:00)
[2019-08-27] MEDS: GABAPENTIN 400 MG CAPSULE. PO SCH ×2 (07:52→22:10)
[2019-08-27] MEDS: LIDOCAINE (700MG/PATCH) PATCH. TD SCH (07:52)
[2019-08-27] MEDS: CEFEPIME HCL IV Push 2 GM VIAL. IVP SCH ×2 (07:52→22:10)
[2019-08-27] MEDS: AZITHROMYCIN 250 MG in IV NORMAL SALINE 250ML 250 ML IV SCH (08:20)
--- NOTE | 2019-08-27 08:29 | PDOC ---
PULMONARY PROGRESS NOTES Subjective Patient remains hemodynamically stable Patient currently sedated, assist control ventilation. Rate of 18, 50% FiO2, 450 tidal volume peak pressure 21 Currently off of pressors Vitals Vital Signs Date Time Temp Pulse Resp B/P (MAP) Pulse Ox O2 Delivery O2 Flow Rate FiO2 08/27/19 04:33 98 08/27/19 03:05 18 50.0 08/27/19 02:35 Ventilator 08/26/19 17:57 75 128/58 (81) 08/26/19 16:06 99.2 99.2 Lungs: Crackles Cardiovascular: S1, S2 Abdomen: Soft Extremities: No Edema Skin: Warm Labs Laboratory Tests Test 08/26/19 08:00 08/26/19 11:30 08/27/19 04:30 O2 Saturation 97 % (92-99) Arterial Blood pH 7.36 (7.35-7.45) Arterial Blood pCO2 at Patient Temp 38 mmHg (35-46) Arterial Blood pO2 at Patient Temp 96 mmHg (65-108) Arterial Blood HCO3 21 mmol/L (21-28) Arterial Blood Base Excess -4 mmol/L (-3-3) FiO2 50%+% Fibrinogen 692 mg/dL (200-440) D-Dimer (Stefanie) 0.74 ug/mlFEU (0.00-0.50) Sodium Level 136 mmol/L (136-145) Potassium Level 4.3 mmol/L (3.5-5.1) Chloride Level 103 mmol/L (98-107) Carbon Dioxide Level 22 mmol/L (21-32) Anion Gap 11 (6-14) Blood Urea Nitrogen 10 mg/dL (7-20) Creatinine 0.8 mg/dL (0.6-1.0) Estimated GFR (Cockcroft-Gault) 72.0 Glucose Level 85 mg/dL (70-99) Calcium Level 8.9 mg/dL (8.5-10.1) White Blood Count 5.6 x10^3/uL (4.0-11.0) Red Blood Count 4.52 x10^6/uL (3.50-5.40) Hemoglobin 12.6 g/dL (12.0-15.5) Hematocrit 38.4 % (36.0-47.0) Mean Corpuscular Volume 85 fL (79-100) Mean Corpuscular Hemoglobin 28 pg (25-35) Mean Corpuscular Hemoglobin Concent 33 g/dL (31-37) Red Cell Distribution Width 13.3 % (11.5-14.5) Platelet Count 317 x10^3/uL (140-400) Neutrophils (%) (Auto) 72 % (31-73) Lymphocytes (%) (Auto) 12 % (24-48) Monocytes (%) (Auto) 14 % (0-9) Eosinophils (%) (Auto) 2 % (0-3) Basophils (%) (Auto) 0 % (0-3) Neutrophils # (Auto) 4.0 x10^3/uL (1.8-7.7) Lymphocytes # (Auto) 0.7 x10^3/uL (1.0-4.8) Monocytes # (Auto) 0.8 x10^3/uL (0.0-1.1) Eosinophils # (Auto) 0.1 x10^3/uL (0.0-0.7) Basophils # (Auto) 0.0 x10^3/uL (0.0-0.2) Laboratory Tests Test 08/26/19 11:30 08/27/19 04:30 Fibrinogen 692 mg/dL (200-440) D-Dimer (Stefanie) 0.74 ug/mlFEU (0.00-0.50) Sodium Level 136 mmol/L (136-145) Potassium Level 4.3 mmol/L (3.5-5.1) Chloride Level 103 mmol/L (98-107) Carbon Dioxide Level 22 mmol/L (21-32) Anion Gap 11 (6-14) Blood Urea Nitrogen 10 mg/dL (7-20) Creatinine 0.8 mg/dL (0.6-1.0) Estimated GFR (Cockcroft-Gault) 72.0 Glucose Level 85 mg/dL (70-99) Calcium Level 8.9 mg/dL (8.5-10.1) White Blood Count 5.6 x10^3/uL (4.0-11.0) Red Blood Count 4.52 x10^6/uL (3.50-5.40) Hemoglobin 12.6 g/dL (12.0-15.5) Hematocrit 38.4 % (36.0-47.0) Mean Corpuscular Volume 85 fL (79-100) Mean Corpuscular Hemoglobin 28 pg (25-35) Mean Corpuscular Hemoglobin Concent 33 g/dL (31-37) Red Cell Distribution Width 13.3 % (11.5-14.5) Platelet Count 317 x10^3/uL (140-400) Neutrophils (%) (Auto) 72 % (31-73) Lymphocytes (%) (Auto) 12 % (24-48) Monocytes (%) (Auto) 14 % (0-9) Eosinophils (%) (Auto) 2 % (0-3) Basophils (%) (Auto) 0 % (0-3) Neutrophils # (Auto) 4.0 x10^3/uL (1.8-7.7) Lymphocytes # (Auto) 0.7 x10^3/uL (1.0-4.8) Monocytes # (Auto) 0.8 x10^3/uL (0.0-1.1) Eosinophils # (Auto) 0.1 x10^3/uL (0.0-0.7) Basophils # (Auto) 0.0 x10^3/uL (0.0-0.2) Medications Active Scripts Medications Dose Route/Sig Max Daily Dose Days Date Category Dose Instructions Pyridium (Phenazopyridine Hcl) 200 Mg Tablet 1 Tab PO TID 3 04/16/19 Rx Ciprofloxacin Hcl 500 Mg Tablet 1 Tab PO BID 04/16/19 Rx Lidocaine PATCH (Lidocaine) 1 Each Adh..patch 1 Patch TD DAILY 04/16/19 Rx Metoprolol Tartrate 25 Mg Tablet 25 Mg PO BID 04/15/19 Reported Fiorinal 50-325-40 Mg Capsule (Butalbital/Aspirin/Caffeine) 1 Each Capsule 1 Each PO Q6HRS PRN 03/27/19 Rx Zofran (Ondansetron Hcl) 4 Mg Tablet 4 Mg PO PRN TID PRN 03/27/19 Rx nausea/vomiting Tylenol (Acetaminophen) 325 Mg Tablet 650 Mg PO PRN Q6HRS PRN 30 03/06/19 Rx Pantoprazole Sodium (Pantoprazole Sodium) 40 Mg Tablet.dr 40 Mg PO DAILYAC 30 03/06/19 Rx Dicyclomine Hcl 10 Mg Capsule 1 Cap PO BID PRN 11/27/18 Reported Imitrex (Sumatriptan Succinate) 100 Mg Tablet 1 Tab PO BID PRN 11/27/18 Reported Hydroxyzine Hcl 25 Mg Tablet 1 Tab PO DAILY PRN 11/27/18 Reported Diclofenac Sodium 75 Mg Tablet.dr 1 Tab PO BID 11/27/18 Reported Zolpidem Tartrate 10 Mg Tablet 10 Mg PO HS 11/27/18 Reported Lisinopril 10 Mg Tablet 1 Tab PO HS 06/14/18 Reported Gabapentin 800 Mg Tablet 1 Tab PO BID 06/17/14 Reported Cyclobenzaprine Hcl 10 Mg Tablet 1 Tab PO BID PRN 06/17/14 Reported Colestipol Hcl 1 Gm Tablet 1 Gm PO BID 06/17/14 Reported Tramadol Hcl 50 Mg Tablet 1 Tab PO BID 06/17/14 Reported Impression . 1. Pneumonia, mycoplasma positive 2. Renal insufficiency. 3. Acute respiratory failure multifactorial/ARDS 4. COVID-19 positive test (U07.1, COVID-19) with Acute Respiratory Distress Syndrome (ARDS) (J80, ARDS) (If respiratory failure or sepsis present, add as separate assessment) 5. Protein malnutrition present upon admission, severe Chest x-ray reviewed no significant IMPRESSION: New bilateral perihilar and peripheral 5 lobe groundglass lung infiltrates are seen and this may be due to pulmonary edema or could be infectious or inflammatory in nature. Aspiration pneumonitis is in the differential diagnosis. Plan . Spoke with nurse, continue current settings, continue current support. Continue Zithromax, Plaquenil. Repeat fibrinogen, d-dimer, noted. No significant change from baseline Labs reviewed, white cell, count within normal limits Pro calcitonin noted ABG noted Continue current support follow labs, ABG, chest x-ray. Cumulative critical care time of 40 minutes, reviewing data, labs, chest x-ray, making adjustments on mechanical ventilation, case discussed with JOSE CARLOS Perez MD Aug 27, 2019 08:29
[2019-08-27] MEDS ORDERED: LANSOPRAZOLE 30 MG TAB.RAP.DR FT SCH (09:00)
[2019-08-27 10:05] LABS: BASE EXCESS ABG -5 mmol/L (-3-3); HCO3 ABG 16 mmol/L (21-28); PO2 ABG 164 mmHg (65-108); SAT O2 ABG 99 % (92-99)
[2019-08-27 10:23] LABS: PCO2 ABG 20 mmHg (35-46)
[2019-08-27 10:24] LABS: FIO2 ABG 50
--- NOTE | 2019-08-27 11:39 | PDOC ---
[employer] PROGRESS NOTE Chief Complaint Chief Complaint Acute hypoxic resp failure requiring intubation and mechanical ventilation Severe acute pneumonia with New bilateral perihilar and peripheral 5 lobe groun dglass lung infiltrates are seen and this may be due to pulmonary edema or could be infectious or inflammatory in nature. Aspiration pneumonitis is in the differential diagnosis. Fevers GERD Acute kidney injury Probable Covid 19 Asthma Hypertension Dehydration Sepsis Severe malnutrition History of Present Illness History of Present Illness [id number] Patient seen and examined in the ICU She is extremely critically ill Covid testing is positive Reviewed chest x-ray and CAT scan Discussed with RN Reviewed chart She is on assist-control 18/400/50% Sedated with Versed and fentanyl Also has a maintenance IV [id number] Patient is mechanically ventilated assist-control/18/400/50% Her Covid 19 testing now is positive Chart reviewed Discussed with RN [id number] Patient seen and examined Discussed with RN I called the pharmacy to start some azithromycin because she is now mycoplasma positive Mechanically ventilated Before meals/18/450/50% Chart reviewed Prognosis guarded Vitals/I&O Vitals/I&O: Vital Signs Date Time Temp Pulse Resp B/P (MAP) Pulse Ox O2 Delivery O2 Flow Rate FiO2 08/27/19 10:08 66 18 118/53 (74) 97 Ventilator 08/27/19 08:00 50.0 08/27/19 07:00 98.6 98.6 I & O 08/26/19 08/26/19 08/27/19 15:00 23:00 07:00 Intake Total 1502 ml 1399 ml Output Total 460 ml 1080 ml 810 ml Balance -460 ml 422 ml 589 ml Physical Exam Physical Exam: She is sedated with Versed and fentanyl General: No acute distress, Other (sedated on the vent) Heart: Regular rate (sedated and intubated), Normal S1 Lungs: Crackles Abdomen: Soft Extremities: No cyanosis Skin: No rashes, No breakdown Labs Labs: Laboratory Tests Test 08/27/19 04:30 08/27/19 08:40 White Blood Count 5.6 x10^3/uL (4.0-11.0) Red Blood Count 4.52 x10^6/uL (3.50-5.40) Hemoglobin 12.6 g/dL (12.0-15.5) Hematocrit 38.4 % (36.0-47.0) Mean Corpuscular Volume 85 fL (79-100) Mean Corpuscular Hemoglobin 28 pg (25-35) Mean Corpuscular Hemoglobin Concent 33 g/dL (31-37) Red Cell Distribution Width 13.3 % (11.5-14.5) Platelet Count 317 x10^3/uL (140-400) Neutrophils (%) (Auto) 72 % (31-73) Lymphocytes (%) (Auto) 12 % (24-48) Monocytes (%) (Auto) 14 % (0-9) Eosinophils (%) (Auto) 2 % (0-3) Basophils (%) (Auto) 0 % (0-3) Neutrophils # (Auto) 4.0 x10^3/uL (1.8-7.7) Lymphocytes # (Auto) 0.7 x10^3/uL (1.0-4.8) Monocytes # (Auto) 0.8 x10^3/uL (0.0-1.1) Eosinophils # (Auto) 0.1 x10^3/uL (0.0-0.7) Basophils # (Auto) 0.0 x10^3/uL (0.0-0.2) O2 Saturation 99 % (92-99) Arterial Blood pH 7.52 (7.35-7.45) Arterial Blood pCO2 at Patient Temp 20 mmHg (35-46) Arterial Blood pO2 at Patient Temp 164 mmHg (65-108) Arterial Blood HCO3 16 mmol/L (21-28) Arterial Blood Base Excess -5 mmol/L (-3-3) FiO2 50 Review of Systems Review of Systems: Unable to obtain Assessment and Plan Assessmemt and Plan Problems Medical Problems: (1) Hypotension Status: Acute (2) Hypoxia Status: Acute (3) Right-sided chest pain Status: Acute (4) Suspected 2019-nCoV infection Status: Acute Acute hypoxic resp failure Covid 19 positive Severe acute pneumonia with New bilateral perihilar and peripheral 5 lobe groundglass lung infiltrates are seen and this may be due to pulmonary edema or could be infectious or inflammatory in nature. Aspiration pneumonitis is in the differential diagnosis. Fevers GERD Acute kidney injury Probable Covid 19 Asthma Hypertension Dehydration Sepsis Severe malnutrition Plan Add azithromycin ICU monitoring Daily chest x-ray Appreciate pulmonary input Mechanical ventilation Broad-spectrum antibiotics Atypical coverage as well Sepsis protocol Full code Trend labs Prognosis guarded DVT prophylaxis She is very critically ill Total time 34 minutes Comment Review of Relevant I have reviewed the following items tori (where applicable) has been applied. Medications: Current Medications Medications (Trade) Dose Ordered Sig/Eder Route PRN Reason Start Time Stop Time Status Last Admin Dose Admin Azithromycin 250 mg/Sodium Chloride 250 ml @ 250 mls/hr Q24H IV 08/27/19 09:00 08/27/19 08:20 Lansoprazole (Prevacid) 30 mg DAILY FT 08/27/19 09:00 08/27/19 07:52 WESLY BOSS III DO Aug 27, 2019 11:39
[2019-08-27] MEDS ORDERED: DEXTROSE 50% 25 GM / 50ML DISP.SYRIN. IV PRN (14:30)
[2019-08-27] MEDS: ENOXAPARIN 40 MG/0.4 ML SYRINGE. SQ SCH (16:47)
[2019-08-27] MEDS: INSULIN LISPRO 300 UNITS/3 ML VIAL. SQ SCH (16:54)
[2019-08-27] MEDS ORDERED: MIDAZOLAM PREMIX 100 MG/100 ML NS BAG. IV ONE (19:21)
[2019-08-27] MEDS: PATCH REMOVAL. MC SCH (21:00)
[2019-08-28] VITALS (24 sets, daily range): BP systolic 107–150; BP diastolic 53–79
[2019-08-28] MEDS: IV NORMAL SALINE 1000ML BAG 1,000 ML IV SCH ×2 (03:40→12:46)
[2019-08-28 05:10] LABS: BASO % 1 % (0-3); EOS # 0.1 x10^3/uL (0.0-0.7); EOS % 2 % (0-3); HEMATOCRIT 33.9 % (36.0-47.0); HEMOGLOBIN 11.3 g/dL (12.0-15.5); LYMPH # 0.6 x10^3/uL (1.0-4.8); LYMPH % 9 % (24-48); MEAN CORPUSCULAR HEMOGLOBIN 28 pg (25-35); MEAN CORPUSCULAR HGB CONC 34 g/dL (31-37); MEAN CORPUSCULAR VOLUME 84 fL (79-100); MONO # 0.9 x10^3/uL (0.0-1.1); MONO % 13 % (0-9); NEUT # 5.1 x10^3/uL (1.8-7.7); NEUT % 76 % (31-73); PLATELET COUNT 292 x10^3/uL (140-400); RED BLOOD COUNT 4.02 x10^6/uL (3.50-5.40); RED CELL DISTRIBUTION WIDTH 12.6 % (11.5-14.5); WHITE BLOOD COUNT 6.7 x10^3/uL (4.0-11.0)
[2019-08-28 05:21] LABS: CALCIUM 8.7 mg/dL (8.5-10.1); CREATININE 0.5 mg/dL (0.6-1.0); GFR 123.8; POTASSIUM 3.7 mmol/L (3.5-5.1)
[2019-08-28] MEDS: INSULIN LISPRO 300 UNITS/3 ML VIAL. SQ SCH ×3 (08:00→16:39)
[2019-08-28] MEDS: MIDAZOLAM HCL 100 MG in IV NORMAL SALINE 100ML 100 ML IV PRN ×2 (08:42→19:25)
[2019-08-28] MEDS: LIDOCAINE (700MG/PATCH) PATCH. TD SCH (09:00)
--- NOTE | 2019-08-28 09:33 | PDOC ---
PULMONARY PROGRESS NOTES Subjective Patient remains hemodynamically stable Patient currently sedated, assist control ventilation. Rate of 18, 50% FiO2, 450 tidal volume peak pressure 21 Currently off of pressors Vitals Vital Signs Date Time Temp Pulse Resp B/P (MAP) Pulse Ox O2 Delivery O2 Flow Rate FiO2 08/28/19 08:45 23 97 Ventilator 08/28/19 06:00 75 141/69 (93) 08/28/19 04:00 40.0 08/28/19 04:00 98.4 98.4 Comments Virtual exam done via telemedicine no respiratory distress, sedated, on vent no JVD, no leg edema, no rash Labs Laboratory Tests Test 08/26/19 11:30 08/27/19 04:30 08/27/19 08:40 08/27/19 16:50 Fibrinogen 692 mg/dL (200-440) D-Dimer (Stefanie) 0.74 ug/mlFEU (0.00-0.50) Sodium Level 136 mmol/L (136-145) Potassium Level 4.3 mmol/L (3.5-5.1) Chloride Level 103 mmol/L (98-107) Carbon Dioxide Level 22 mmol/L (21-32) Anion Gap 11 (6-14) Blood Urea Nitrogen 10 mg/dL (7-20) Creatinine 0.8 mg/dL (0.6-1.0) Estimated GFR (Cockcroft-Gault) 72.0 Glucose Level 85 mg/dL (70-99) Calcium Level 8.9 mg/dL (8.5-10.1) White Blood Count 5.6 x10^3/uL (4.0-11.0) Red Blood Count 4.52 x10^6/uL (3.50-5.40) Hemoglobin 12.6 g/dL (12.0-15.5) Hematocrit 38.4 % (36.0-47.0) Mean Corpuscular Volume 85 fL (79-100) Mean Corpuscular Hemoglobin 28 pg (25-35) Mean Corpuscular Hemoglobin Concent 33 g/dL (31-37) Red Cell Distribution Width 13.3 % (11.5-14.5) Platelet Count 317 x10^3/uL (140-400) Neutrophils (%) (Auto) 72 % (31-73) Lymphocytes (%) (Auto) 12 % (24-48) Monocytes (%) (Auto) 14 % (0-9) Eosinophils (%) (Auto) 2 % (0-3) Basophils (%) (Auto) 0 % (0-3) Neutrophils # (Auto) 4.0 x10^3/uL (1.8-7.7) Lymphocytes # (Auto) 0.7 x10^3/uL (1.0-4.8) Monocytes # (Auto) 0.8 x10^3/uL (0.0-1.1) Eosinophils # (Auto) 0.1 x10^3/uL (0.0-0.7) Basophils # (Auto) 0.0 x10^3/uL (0.0-0.2) O2 Saturation 99 % (92-99) Arterial Blood pH 7.52 (7.35-7.45) Arterial Blood pCO2 at Patient Temp 20 mmHg (35-46) Arterial Blood pO2 at Patient Temp 164 mmHg (65-108) Arterial Blood HCO3 16 mmol/L (21-28) Arterial Blood Base Excess -5 mmol/L (-3-3) FiO2 50 Glucose (Fingerstick) 77 mg/dL (70-99) Test 08/28/19 04:50 White Blood Count 6.7 x10^3/uL (4.0-11.0) Red Blood Count 4.02 x10^6/uL (3.50-5.40) Hemoglobin 11.3 g/dL (12.0-15.5) Hematocrit 33.9 % (36.0-47.0) Mean Corpuscular Volume 84 fL (79-100) Mean Corpuscular Hemoglobin 28 pg (25-35) Mean Corpuscular Hemoglobin Concent 34 g/dL (31-37) Red Cell Distribution Width 12.6 % (11.5-14.5) Platelet Count 292 x10^3/uL (140-400) Neutrophils (%) (Auto) 76 % (31-73) Lymphocytes (%) (Auto) 9 % (24-48) Monocytes (%) (Auto) 13 % (0-9) Eosinophils (%) (Auto) 2 % (0-3) Basophils (%) (Auto) 1 % (0-3) Neutrophils # (Auto) 5.1 x10^3/uL (1.8-7.7) Lymphocytes # (Auto) 0.6 x10^3/uL (1.0-4.8) Monocytes # (Auto) 0.9 x10^3/uL (0.0-1.1) Eosinophils # (Auto) 0.1 x10^3/uL (0.0-0.7) Basophils # (Auto) 0.0 x10^3/uL (0.0-0.2) Sodium Level 133 mmol/L (136-145) Potassium Level 3.7 mmol/L (3.5-5.1) Chloride Level 101 mmol/L (98-107) Carbon Dioxide Level 23 mmol/L (21-32) Anion Gap 9 (6-14) Blood Urea Nitrogen 12 mg/dL (7-20) Creatinine 0.5 mg/dL (0.6-1.0) Estimated GFR (Cockcroft-Gault) 123.8 Glucose Level 97 mg/dL (70-99) Calcium Level 8.7 mg/dL (8.5-10.1) Laboratory Tests Test 08/27/19 16:50 08/28/19 04:50 Glucose (Fingerstick) 77 mg/dL (70-99) White Blood Count 6.7 x10^3/uL (4.0-11.0) Red Blood Count 4.02 x10^6/uL (3.50-5.40) Hemoglobin 11.3 g/dL (12.0-15.5) Hematocrit 33.9 % (36.0-47.0) Mean Corpuscular Volume 84 fL (79-100) Mean Corpuscular Hemoglobin 28 pg (25-35) Mean Corpuscular Hemoglobin Concent 34 g/dL (31-37) Red Cell Distribution Width 12.6 % (11.5-14.5) Platelet Count 292 x10^3/uL (140-400) Neutrophils (%) (Auto) 76 % (31-73) Lymphocytes (%) (Auto) 9 % (24-48) Monocytes (%) (Auto) 13 % (0-9) Eosinophils (%) (Auto) 2 % (0-3) Basophils (%) (Auto) 1 % (0-3) Neutrophils # (Auto) 5.1 x10^3/uL (1.8-7.7) Lymphocytes # (Auto) 0.6 x10^3/uL (1.0-4.8) Monocytes # (Auto) 0.9 x10^3/uL (0.0-1.1) Eosinophils # (Auto) 0.1 x10^3/uL (0.0-0.7) Basophils # (Auto) 0.0 x10^3/uL (0.0-0.2) Sodium Level 133 mmol/L (136-145) Potassium Level 3.7 mmol/L (3.5-5.1) Chloride Level 101 mmol/L (98-107) Carbon Dioxide Level 23 mmol/L (21-32) Anion Gap 9 (6-14) Blood Urea Nitrogen 12 mg/dL (7-20) Creatinine 0.5 mg/dL (0.6-1.0) Estimated GFR (Cockcroft-Gault) 123.8 Glucose Level 97 mg/dL (70-99) Calcium Level 8.7 mg/dL (8.5-10.1) Medications Active Scripts Medications Dose Route/Sig Max Daily Dose Days Date Category Dose Instructions Pyridium (Phenazopyridine Hcl) 200 Mg Tablet 1 Tab PO TID 3 04/16/19 Rx Ciprofloxacin Hcl 500 Mg Tablet 1 Tab PO BID 04/16/19 Rx Lidocaine PATCH (Lidocaine) 1 Each Adh..patch 1 Patch TD DAILY 04/16/19 Rx Metoprolol Tartrate 25 Mg Tablet 25 Mg PO BID 04/15/19 Reported Fiorinal 50-325-40 Mg Capsule (Butalbital/Aspirin/Caffeine) 1 Each Capsule 1 Each PO Q6HRS PRN 03/27/19 Rx Zofran (Ondansetron Hcl) 4 Mg Tablet 4 Mg PO PRN TID PRN 03/27/19 Rx nausea/vomiting Tylenol (Acetaminophen) 325 Mg Tablet 650 Mg PO PRN Q6HRS PRN 30 03/06/19 Rx Pantoprazole Sodium (Pantoprazole Sodium) 40 Mg Tablet.dr 40 Mg PO DAILYAC 30 03/06/19 Rx Dicyclomine Hcl 10 Mg Capsule 1 Cap PO BID PRN 11/27/18 Reported Imitrex (Sumatriptan Succinate) 100 Mg Tablet 1 Tab PO BID PRN 11/27/18 Reported Hydroxyzine Hcl 25 Mg Tablet 1 Tab PO DAILY PRN 11/27/18 Reported Diclofenac Sodium 75 Mg Tablet.dr 1 Tab PO BID 11/27/18 Reported Zolpidem Tartrate 10 Mg Tablet 10 Mg PO HS 11/27/18 Reported Lisinopril 10 Mg Tablet 1 Tab PO HS 06/14/18 Reported Gabapentin 800 Mg Tablet 1 Tab PO BID 06/17/14 Reported Cyclobenzaprine Hcl 10 Mg Tablet 1 Tab PO BID PRN 06/17/14 Reported Colestipol Hcl 1 Gm Tablet 1 Gm PO BID 06/17/14 Reported Tramadol Hcl 50 Mg Tablet 1 Tab PO BID 06/17/14 Reported Impression . 1. Acute Respiratory failure due to COVID19 Pneumonia/ ARDS 2. Pneumonia, mycoplasma positive/ in addition to COVID-19 pneumonia 3. Acute respiratory failure multifactorial/ARDS 4. COVID-19 positive test (U07.1, COVID-19) with Acute Respiratory Distress Syndrome (ARDS) (J80, ARDS) (If respiratory failure or sepsis present, add as separate assessment) 5. Protein malnutrition present upon admission, severe Chest x-ray reviewed IMPRESSION: New bilateral perihilar and peripheral 5 lobe groundglass lung infiltrates are seen and this may be due to pulmonary edema or could be infectious or inflammatory in nature. Aspiration pneumonitis is in the differential diagnosis. Plan . Spoke with nurse, continue current settings, continue current support. Continue Zithromax, Plaquenil. Repeat fibrinogen, d-dimer, noted. No significant change from baseline Labs reviewed, white cell, count within normal limits Pro calcitonin noted ABG noted Continue current support follow labs, ABG, chest x-ray. Cumulative critical care time of 30 minutes, reviewing data, labs, chest x-ray, making adjustments on mechanical ventilation, AMADOU SANTOS MD Aug 28, 2019 09:33
[2019-08-28] MEDS: AZITHROMYCIN 250 MG in IV NORMAL SALINE 250ML 250 ML IV SCH (10:04)
[2019-08-28] MEDS: GABAPENTIN 400 MG CAPSULE. PO SCH ×2 (10:05→20:48)
[2019-08-28] MEDS: CEFEPIME HCL IV Push 2 GM VIAL. IVP SCH ×2 (10:05→20:49)
[2019-08-28] MEDS: traMADol 50 MG TABLET PO SCH ×2 (10:06→20:49)
[2019-08-28] MEDS: HYDROXYCHLOROQUINE 200 MG TABLET PO SCH ×2 (10:06→20:43)
[2019-08-28] MEDS: PANTOPRAZOLE IV PUSH 40 MG VIAL. IVP SCH (10:07)
--- NOTE | 2019-08-28 10:12 | RAD ---
EXAM: CHEST 1 VIEW History: Intubation COMPARISON: 08/24/2019 TECHNIQUE: Single portable radiograph of the chest Findings/ impression: The ET tube is identified in the distal aspect of the trachea. Feeding tube is identified in the stomach. Right-sided PICC line is identified with tip projecting at the SVC/RA junction. Diffuse patchy bilateral lung airspace opacities appear slightly more confluent compared to prior exam. The costophrenic sulci are clear and well demarcated. Electronically signed by: Esequiel Snyder MD (08/28/2019 10:09 AM) [id number]
[2019-08-28 10:42] LABS: BASE EXCESS IS ARTERIAL 0 mmol/L (0-3); HCO3 IS ARTERIAL 25 mmol/L (21-28); PCO2 IS ARTERIAL 44 mmHg (35-45); PH IS ARTERIAL 7.36 (7.35-7.45); PO2 IS ARTERIAL 124 mmHg (75-100); SAT O2 IS ARTERIAL 99 % (95-99); TCO2 IS ARTERIAL 26 mmol/L (21-32)
[2019-08-28] MEDS: COLESTIPOL HCL 1 GM TABLET PO SCH ×2 (12:45→20:43)
--- NOTE | 2019-08-28 13:55 | PDOC ---
[employer] [facility] PROGRESS NOTE Chief Complaint Chief Complaint Acute hypoxic resp failure requiring intubation and mechanical ventilation Severe acute pneumonia with New bilateral perihilar and peripheral 5 lobe groun dglass lung infiltrates are seen and this may be due to pulmonary edema or could be infectious or inflammatory in nature. Aspiration pneumonitis is in the differential diagnosis. Fevers GERD Acute kidney injury Probable Covid 19 Asthma Hypertension Dehydration Sepsis Severe malnutrition History of Present Illness History of Present Illness [id number] Patient seen and examined in the ICU She remains mechanically ventilated Assist-control/12/400/50% with 8 of PEEP Sedated with Versed and fentanyl OG feeds running She is Covid 19 positive [id number] Patient seen and examined in the ICU She is extremely critically ill Covid testing is positive Reviewed chest x-ray and CAT scan Discussed with RN Reviewed chart She is on assist-control 18/400/50% Sedated with Versed and fentanyl Also has a maintenance IV [id number] Patient is mechanically ventilated assist-control/18/400/50% Her Covid 19 testing now is positive Chart reviewed Discussed with RN [id number] Patient seen and examined Discussed with RN I called the pharmacy to start some azithromycin because she is now mycoplasma positive Mechanically ventilated Before meals/18/450/50% Chart reviewed Prognosis guarded Vitals/I&O Vitals/I&O: Vital Signs Date Time Temp Pulse Resp B/P (MAP) Pulse Ox O2 Delivery O2 Flow Rate FiO2 08/28/19 12:05 96 08/28/19 12:00 Mechanical Ventilator 08/28/19 11:10 22 08/28/19 11:00 90 122/58 (79) 08/28/19 08:00 99.1 99.1 08/28/19 04:00 40.0 I & O 08/27/19 08/27/19 08/28/19 15:00 23:00 07:00 Intake Total 250 ml 1117 ml 740.3 ml Output Total 2225 ml 580 ml 650 ml Balance -1975 ml 537 ml 90.3 ml Physical Exam Physical Exam: She is sedated with Versed and fentanyl General: No acute distress, Other (sedated on the vent) Heart: Regular rate (sedated and intubated), Normal S1 Abdomen: Soft Extremities: No cyanosis Skin: No rashes, No breakdown Labs Labs: Laboratory Tests Test 08/27/19 16:50 08/28/19 04:50 08/28/19 09:54 08/28/19 12:44 Glucose (Fingerstick) 77 mg/dL (70-99) 135 mg/dL (70-99) White Blood Count 6.7 x10^3/uL (4.0-11.0) Red Blood Count 4.02 x10^6/uL (3.50-5.40) Hemoglobin 11.3 g/dL (12.0-15.5) Hematocrit 33.9 % (36.0-47.0) Mean Corpuscular Volume 84 fL (79-100) Mean Corpuscular Hemoglobin 28 pg (25-35) Mean Corpuscular Hemoglobin Concent 34 g/dL (31-37) Red Cell Distribution Width 12.6 % (11.5-14.5) Platelet Count 292 x10^3/uL (140-400) Neutrophils (%) (Auto) 76 % (31-73) Lymphocytes (%) (Auto) 9 % (24-48) Monocytes (%) (Auto) 13 % (0-9) Eosinophils (%) (Auto) 2 % (0-3) Basophils (%) (Auto) 1 % (0-3) Neutrophils # (Auto) 5.1 x10^3/uL (1.8-7.7) Lymphocytes # (Auto) 0.6 x10^3/uL (1.0-4.8) Monocytes # (Auto) 0.9 x10^3/uL (0.0-1.1) Eosinophils # (Auto) 0.1 x10^3/uL (0.0-0.7) Basophils # (Auto) 0.0 x10^3/uL (0.0-0.2) Sodium Level 133 mmol/L (136-145) Potassium Level 3.7 mmol/L (3.5-5.1) Chloride Level 101 mmol/L (98-107) Carbon Dioxide Level 23 mmol/L (21-32) Anion Gap 9 (6-14) Blood Urea Nitrogen 12 mg/dL (7-20) Creatinine 0.5 mg/dL (0.6-1.0) Estimated GFR (Cockcroft-Gault) 123.8 Glucose Level 97 mg/dL (70-99) Calcium Level 8.7 mg/dL (8.5-10.1) Bedside Arterial pH 7.36 (7.35-7.45) Bedside Arterial pCO2 44 mmHg (35-45) Bedside Arterial pO2 124 mmHg (75-100) Arterial Blood HCO3 25 mmol/L (21-28) Bedside Arterial Blood O2 Sat 99 % (95-99) Bedside FiO2 50.0 Review of Systems Review of Systems: Unable to obtain Assessment and Plan Assessmemt and Plan Problems Medical Problems: (1) Hypotension Status: Acute (2) Hypoxia Status: Acute (3) Right-sided chest pain Status: Acute (4) Suspected 2019-nCoV infection Status: Acute Acute hypoxic resp failure Covid 19 positive Severe acute pneumonia with New bilateral perihilar and peripheral 5 lobe groundglass lung infiltrates are seen and this may be due to pulmonary edema or could be infectious or inflammatory in nature. Aspiration pneumonitis is in the differential diagnosis. Fevers GERD Acute kidney injury Probable Covid 19 Asthma Hypertension Dehydration Sepsis Severe malnutrition Plan IV azithromycin for atypical coverage ICU monitoring Daily chest x-ray Appreciate pulmonary input Mechanical ventilation Broad-spectrum antibiotics Sepsis protocol Full code Trend labs Prognosis guarded DVT prophylaxis She is very critically ill Total time 36 minutes Comment Review of Relevant I have reviewed the following items tori (where applicable) has been applied. Medications: Current Medications Medications (Trade) Dose Ordered Sig/Eder Route PRN Reason Start Time Stop Time Status Last Admin Dose Admin Pantoprazole Sodium (PROTONIX VIAL for IV PUSH) 40 mg DAILYAC IVP 08/28/19 11:00 08/28/19 10:07 WESLY BOSS III DO Aug 28, 2019 13:55
[2019-08-28] MEDS: ENOXAPARIN 40 MG/0.4 ML SYRINGE. SQ SCH (16:36)
[2019-08-28] MEDS: PATCH REMOVAL. MC SCH (20:51)
[2019-08-29] VITALS (23 sets, daily range): BP systolic 105–147; BP diastolic 52–71
[2019-08-29] MEDS: IV NORMAL SALINE 1000ML BAG 1,000 ML IV SCH ×3 (00:07→19:03)
[2019-08-29 04:22] LABS: BASO # 0.1 x10^3/uL (0.0-0.2); BASO % 1 % (0-3); EOS # 0.1 x10^3/uL (0.0-0.7); EOS % 2 % (0-3); HEMATOCRIT 33.1 % (36.0-47.0); LYMPH # 0.8 x10^3/uL (1.0-4.8); LYMPH % 12 % (24-48); MEAN CORPUSCULAR HEMOGLOBIN 28 pg (25-35); MEAN CORPUSCULAR HGB CONC 33 g/dL (31-37); MEAN CORPUSCULAR VOLUME 84 fL (79-100); MONO # 1.1 x10^3/uL (0.0-1.1); MONO % 17 % (0-9); NEUT # 4.5 x10^3/uL (1.8-7.7); NEUT % 68 % (31-73); PLATELET COUNT 362 x10^3/uL (140-400); RED BLOOD COUNT 3.94 x10^6/uL (3.50-5.40); RED CELL DISTRIBUTION WIDTH 12.9 % (11.5-14.5); WHITE BLOOD COUNT 6.6 x10^3/uL (4.0-11.0)
[2019-08-29] MEDS: MIDAZOLAM HCL 100 MG in IV NORMAL SALINE 100ML 100 ML IV PRN ×2 (04:26→16:48)
[2019-08-29] MEDS: INSULIN LISPRO 300 UNITS/3 ML VIAL. SQ SCH ×3 (08:00→17:00)
[2019-08-29] MEDS: LIDOCAINE (700MG/PATCH) PATCH. TD SCH (08:25)
[2019-08-29] MEDS: PANTOPRAZOLE IV PUSH 40 MG VIAL. IVP SCH (08:58)
[2019-08-29] MEDS: CEFEPIME HCL IV Push 2 GM VIAL. IVP SCH ×2 (08:59→20:58)
[2019-08-29] MEDS: GABAPENTIN 400 MG CAPSULE. PO SCH ×2 (08:59→20:53)
[2019-08-29] MEDS: traMADol 50 MG TABLET PO SCH ×2 (08:59→20:53)
[2019-08-29] MEDS: AZITHROMYCIN 250 MG in IV NORMAL SALINE 250ML 250 ML IV SCH (09:01)
--- NOTE | 2019-08-29 09:12 | PDOC ---
PULMONARY PROGRESS NOTES Subjective Patient remains hemodynamically stable Patient currently sedated, assist control ventilation. Rate of 18, 50% FiO2, 450 tidal volume peak pressure 21 Currently off of pressors Vitals Vital Signs Date Time Temp Pulse Resp B/P (MAP) Pulse Ox O2 Delivery O2 Flow Rate FiO2 08/29/19 08:59 14 99 Ventilator 08/29/19 06:00 68 128/58 (81) 08/29/19 05:06 99.0 99.0 08/28/19 20:49 40.0 Comments Visual exam done no respiratory distress, sedated, on vent no JVD, no leg edema, no rash Labs Laboratory Tests Test 08/27/19 16:50 08/28/19 04:50 08/28/19 09:54 08/28/19 12:44 Glucose (Fingerstick) 77 mg/dL (70-99) 135 mg/dL (70-99) White Blood Count 6.7 x10^3/uL (4.0-11.0) Red Blood Count 4.02 x10^6/uL (3.50-5.40) Hemoglobin 11.3 g/dL (12.0-15.5) Hematocrit 33.9 % (36.0-47.0) Mean Corpuscular Volume 84 fL (79-100) Mean Corpuscular Hemoglobin 28 pg (25-35) Mean Corpuscular Hemoglobin Concent 34 g/dL (31-37) Red Cell Distribution Width 12.6 % (11.5-14.5) Platelet Count 292 x10^3/uL (140-400) Neutrophils (%) (Auto) 76 % (31-73) Lymphocytes (%) (Auto) 9 % (24-48) Monocytes (%) (Auto) 13 % (0-9) Eosinophils (%) (Auto) 2 % (0-3) Basophils (%) (Auto) 1 % (0-3) Neutrophils # (Auto) 5.1 x10^3/uL (1.8-7.7) Lymphocytes # (Auto) 0.6 x10^3/uL (1.0-4.8) Monocytes # (Auto) 0.9 x10^3/uL (0.0-1.1) Eosinophils # (Auto) 0.1 x10^3/uL (0.0-0.7) Basophils # (Auto) 0.0 x10^3/uL (0.0-0.2) Sodium Level 133 mmol/L (136-145) Potassium Level 3.7 mmol/L (3.5-5.1) Chloride Level 101 mmol/L (98-107) Carbon Dioxide Level 23 mmol/L (21-32) Anion Gap 9 (6-14) Blood Urea Nitrogen 12 mg/dL (7-20) Creatinine 0.5 mg/dL (0.6-1.0) Estimated GFR (Cockcroft-Gault) 123.8 Glucose Level 97 mg/dL (70-99) Calcium Level 8.7 mg/dL (8.5-10.1) Bedside Arterial pH 7.36 (7.35-7.45) Bedside Arterial pCO2 44 mmHg (35-45) Bedside Arterial pO2 124 mmHg (75-100) Arterial Blood HCO3 25 mmol/L (21-28) Bedside Arterial Blood O2 Sat 99 % (95-99) Bedside FiO2 50.0 Test 08/28/19 16:38 08/29/19 04:15 Glucose (Fingerstick) 133 mg/dL (70-99) White Blood Count 6.6 x10^3/uL (4.0-11.0) Red Blood Count 3.94 x10^6/uL (3.50-5.40) Hemoglobin 11.0 g/dL (12.0-15.5) Hematocrit 33.1 % (36.0-47.0) Mean Corpuscular Volume 84 fL (79-100) Mean Corpuscular Hemoglobin 28 pg (25-35) Mean Corpuscular Hemoglobin Concent 33 g/dL (31-37) Red Cell Distribution Width 12.9 % (11.5-14.5) Platelet Count 362 x10^3/uL (140-400) Neutrophils (%) (Auto) 68 % (31-73) Lymphocytes (%) (Auto) 12 % (24-48) Monocytes (%) (Auto) 17 % (0-9) Eosinophils (%) (Auto) 2 % (0-3) Basophils (%) (Auto) 1 % (0-3) Neutrophils # (Auto) 4.5 x10^3/uL (1.8-7.7) Lymphocytes # (Auto) 0.8 x10^3/uL (1.0-4.8) Monocytes # (Auto) 1.1 x10^3/uL (0.0-1.1) Eosinophils # (Auto) 0.1 x10^3/uL (0.0-0.7) Basophils # (Auto) 0.1 x10^3/uL (0.0-0.2) Laboratory Tests Test 08/28/19 09:54 08/28/19 12:44 08/28/19 16:38 08/29/19 04:15 Bedside Arterial pH 7.36 (7.35-7.45) Bedside Arterial pCO2 44 mmHg (35-45) Bedside Arterial pO2 124 mmHg (75-100) Arterial Blood HCO3 25 mmol/L (21-28) Bedside Arterial Blood O2 Sat 99 % (95-99) Bedside FiO2 50.0 Glucose (Fingerstick) 135 mg/dL (70-99) 133 mg/dL (70-99) White Blood Count 6.6 x10^3/uL (4.0-11.0) Red Blood Count 3.94 x10^6/uL (3.50-5.40) Hemoglobin 11.0 g/dL (12.0-15.5) Hematocrit 33.1 % (36.0-47.0) Mean Corpuscular Volume 84 fL (79-100) Mean Corpuscular Hemoglobin 28 pg (25-35) Mean Corpuscular Hemoglobin Concent 33 g/dL (31-37) Red Cell Distribution Width 12.9 % (11.5-14.5) Platelet Count 362 x10^3/uL (140-400) Neutrophils (%) (Auto) 68 % (31-73) Lymphocytes (%) (Auto) 12 % (24-48) Monocytes (%) (Auto) 17 % (0-9) Eosinophils (%) (Auto) 2 % (0-3) Basophils (%) (Auto) 1 % (0-3) Neutrophils # (Auto) 4.5 x10^3/uL (1.8-7.7) Lymphocytes # (Auto) 0.8 x10^3/uL (1.0-4.8) Monocytes # (Auto) 1.1 x10^3/uL (0.0-1.1) Eosinophils # (Auto) 0.1 x10^3/uL (0.0-0.7) Basophils # (Auto) 0.1 x10^3/uL (0.0-0.2) Medications Active Scripts Medications Dose Route/Sig Max Daily Dose Days Date Category Dose Instructions Pyridium (Phenazopyridine Hcl) 200 Mg Tablet 1 Tab PO TID 3 04/16/19 Rx Ciprofloxacin Hcl 500 Mg Tablet 1 Tab PO BID 04/16/19 Rx Lidocaine PATCH (Lidocaine) 1 Each Adh..patch 1 Patch TD DAILY 04/16/19 Rx Metoprolol Tartrate 25 Mg Tablet 25 Mg PO BID 04/15/19 Reported Fiorinal 50-325-40 Mg Capsule (Butalbital/Aspirin/Caffeine) 1 Each Capsule 1 Each PO Q6HRS PRN 03/27/19 Rx Zofran (Ondansetron Hcl) 4 Mg Tablet 4 Mg PO PRN TID PRN 03/27/19 Rx nausea/vomiting Tylenol (Acetaminophen) 325 Mg Tablet 650 Mg PO PRN Q6HRS PRN 30 03/06/19 Rx Pantoprazole Sodium (Pantoprazole Sodium) 40 Mg Tablet.dr 40 Mg PO DAILYAC 30 03/06/19 Rx Dicyclomine Hcl 10 Mg Capsule 1 Cap PO BID PRN 11/27/18 Reported Imitrex (Sumatriptan Succinate) 100 Mg Tablet 1 Tab PO BID PRN 11/27/18 Reported Hydroxyzine Hcl 25 Mg Tablet 1 Tab PO DAILY PRN 11/27/18 Reported Diclofenac Sodium 75 Mg Tablet.dr 1 Tab PO BID 11/27/18 Reported Zolpidem Tartrate 10 Mg Tablet 10 Mg PO HS 11/27/18 Reported Lisinopril 10 Mg Tablet 1 Tab PO HS 06/14/18 Reported Gabapentin 800 Mg Tablet 1 Tab PO BID 06/17/14 Reported Cyclobenzaprine Hcl 10 Mg Tablet 1 Tab PO BID PRN 06/17/14 Reported Colestipol Hcl 1 Gm Tablet 1 Gm PO BID 06/17/14 Reported Tramadol Hcl 50 Mg Tablet 1 Tab PO BID 06/17/14 Reported Impression . 1. Acute Respiratory failure due to COVID19 Pneumonia/ ARDS 2. Pneumonia, mycoplasma positive/ in addition to COVID-19 pneumonia 3. Acute respiratory failure multifactorial/ARDS 4. COVID-19 positive test (U07.1, COVID-19) with Acute Respiratory Distress Syndrome (ARDS) (J80, ARDS) (If respiratory failure or sepsis present, add as separate assessment) 5. Protein malnutrition present upon admission, severe Chest x-ray reviewed IMPRESSION: New bilateral perihilar and peripheral 5 lobe groundglass lung infiltrates are seen and this may be due to pulmonary edema or could be infectious or inflammatory in nature. Aspiration pneumonitis is in the differential diagnosis. Plan . Spoke with nurse, continue current settings, continue current support. Continue Zithromax, Plaquenil. Repeat fibrinogen, d-dimer, noted. No significant change from baseline Labs reviewed, white cell, count within normal limits Pro calcitonin noted ABG noted Continue current support follow labs, ABG, chest x-ray. Cumulative critical care time of 30 minutes, reviewing data, labs, chest x-ray, making adjustments on mechanical ventilation, AMADOU SANTOS MD Aug 29, 2019 09:12
[2019-08-29 09:20] LABS: BASE EXCESS ABG 0 mmol/L (-3-3)
[2019-08-29 09:38] LABS: PCO2 ABG 44 mmHg (35-46); PO2 ABG 126 mmHg (65-108)
[2019-08-29 09:39] LABS: HCO3 ABG 26 mmol/L (21-28); SAT O2 ABG 98 % (92-99)
[2019-08-29 09:42] LABS: FIO2 ABG 50
--- NOTE | 2019-08-29 10:23 | RAD ---
Examination: KUB History: OG tube placement Comparison/Correlation: 08/28/2010 AP view of the chest 9:17 AM Findings: Portable frontal view of the upper abdomen was obtained. Enteric tube terminates within the left upper quadrant of the gastric fundal region. Right upper quadrant surgical clips are present. Catheter tubing overlies the superior vena cava. Interstitial thickening and infiltration of bone miller. Patchy infiltrate noted. Impression: OG tube in place. Infiltrates partially seen. Electronically signed by: Musa Wilson MD (08/29/2019 10:21 AM) [id number]
--- NOTE | 2019-08-29 10:32 | RAD ---
CHEST AP ONLY History: Ventilated patient. Respiratory failure. Comparison: August 28, 2019 Findings: Diffuse interstitial and alveolar opacities, similar compared to prior. No pleural effusion. No pneumothorax. Stable right PICC, endotracheal tube and enteric tube. Impression: 1. No significant interval change compared to prior. Electronically signed by: Drake Mansfield DO (08/29/2019 10:29 AM) [id number]
[2019-08-29] MEDS: COLESTIPOL HCL 1 GM TABLET PO SCH ×2 (11:40→20:28)
--- NOTE | 2019-08-29 14:59 | PDOC ---
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 GERD Acute kidney injury Asthma history of essential Hypertension Dehydration Severe malnutrition Plan: Continue Zithromax and Plaquenil Continue supportive measures and ventilatory support Follow labs in the a.m. History of Present Illness History of Present Illness 08/29/2019 Patient remains critically stable, oxygen requirements at 50% discussed with nursing staff at bedside [id number] Patient seen and examined in the ICU She remains mechanically ventilated Assist-control/12/400/50% with 8 of PEEP Sedated with Versed and fentanyl OG feeds running She is Covid 19 positive [id number] Patient seen and examined in the ICU She is extremely critically ill Covid testing is positive Reviewed chest x-ray and CAT scan Discussed with RN Reviewed chart She is on assist-control 18/400/50% Sedated with Versed and fentanyl Also has a maintenance IV [id number] Patient is mechanically ventilated assist-control/18/400/50% Her Covid 19 testing now is positive Chart reviewed Discussed with RN [id number] Patient seen and examined Discussed with RN I called the pharmacy to start some azithromycin because she is now mycoplasma positive Mechanically ventilated Before meals/18/450/50% Chart reviewed Prognosis guarded Vitals Vitals Vital Signs Date Time Temp Pulse Resp B/P (MAP) Pulse Ox O2 Delivery O2 Flow Rate FiO2 08/29/19 14:00 66 14 137/66 (89) 97 Ventilator 08/29/19 12:00 98.9 98.9 08/28/19 20:49 40.0 Physical Exam Physical Exam She is sedated with Versed and fentanyl General: No acute distress, Other (sedated on the vent) Heart: Regular rate (sedated and intubated), Normal S1 Abdomen: Soft Extremities: No cyanosis Skin: No rashes, No breakdown Labs LABS Laboratory Tests Test 08/28/19 16:38 08/29/19 04:15 08/29/19 09:04 08/29/19 09:15 Glucose (Fingerstick) 133 mg/dL (70-99) 85 mg/dL (70-99) White Blood Count 6.6 x10^3/uL (4.0-11.0) Red Blood Count 3.94 x10^6/uL (3.50-5.40) Hemoglobin 11.0 g/dL (12.0-15.5) Hematocrit 33.1 % (36.0-47.0) Mean Corpuscular Volume 84 fL (79-100) Mean Corpuscular Hemoglobin 28 pg (25-35) Mean Corpuscular Hemoglobin Concent 33 g/dL (31-37) Red Cell Distribution Width 12.9 % (11.5-14.5) Platelet Count 362 x10^3/uL (140-400) Neutrophils (%) (Auto) 68 % (31-73) Lymphocytes (%) (Auto) 12 % (24-48) Monocytes (%) (Auto) 17 % (0-9) Eosinophils (%) (Auto) 2 % (0-3) Basophils (%) (Auto) 1 % (0-3) Neutrophils # (Auto) 4.5 x10^3/uL (1.8-7.7) Lymphocytes # (Auto) 0.8 x10^3/uL (1.0-4.8) Monocytes # (Auto) 1.1 x10^3/uL (0.0-1.1) Eosinophils # (Auto) 0.1 x10^3/uL (0.0-0.7) Basophils # (Auto) 0.1 x10^3/uL (0.0-0.2) O2 Saturation 98 % (92-99) Arterial Blood pH 7.38 (7.35-7.45) Arterial Blood pCO2 at Patient Temp 44 mmHg (35-46) Arterial Blood pO2 at Patient Temp 126 mmHg (65-108) Arterial Blood HCO3 26 mmol/L (21-28) Arterial Blood Base Excess 0 mmol/L (-3-3) FiO2 50 Test 08/29/19 11:45 Glucose (Fingerstick) 102 mg/dL (70-99) Review of Systems Review of Systems unable to assess Assessment and Plan Assessmemt and Plan Problems Medical Problems: (1) Hypotension Status: Acute (2) Hypoxia Status: Acute (3) Right-sided chest pain Status: Acute (4) Suspected 2019-nCoV infection Status: Acute Comment Review of Relevant I have reviewed the following items tori (where applicable) has been applied. Labs Laboratory Tests Test 08/27/19 16:50 08/28/19 04:50 08/28/19 09:54 08/28/19 12:44 Glucose (Fingerstick) 77 mg/dL (70-99) 135 mg/dL (70-99) White Blood Count 6.7 x10^3/uL (4.0-11.0) Red Blood Count 4.02 x10^6/uL (3.50-5.40) Hemoglobin 11.3 g/dL (12.0-15.5) Hematocrit 33.9 % (36.0-47.0) Mean Corpuscular Volume 84 fL (79-100) Mean Corpuscular Hemoglobin 28 pg (25-35) Mean Corpuscular Hemoglobin Concent 34 g/dL (31-37) Red Cell Distribution Width 12.6 % (11.5-14.5) Platelet Count 292 x10^3/uL (140-400) Neutrophils (%) (Auto) 76 % (31-73) Lymphocytes (%) (Auto) 9 % (24-48) Monocytes (%) (Auto) 13 % (0-9) Eosinophils (%) (Auto) 2 % (0-3) Basophils (%) (Auto) 1 % (0-3) Neutrophils # (Auto) 5.1 x10^3/uL (1.8-7.7) Lymphocytes # (Auto) 0.6 x10^3/uL (1.0-4.8) Monocytes # (Auto) 0.9 x10^3/uL (0.0-1.1) Eosinophils # (Auto) 0.1 x10^3/uL (0.0-0.7) Basophils # (Auto) 0.0 x10^3/uL (0.0-0.2) Sodium Level 133 mmol/L (136-145) Potassium Level 3.7 mmol/L (3.5-5.1) Chloride Level 101 mmol/L (98-107) Carbon Dioxide Level 23 mmol/L (21-32) Anion Gap 9 (6-14) Blood Urea Nitrogen 12 mg/dL (7-20) Creatinine 0.5 mg/dL (0.6-1.0) Estimated GFR (Cockcroft-Gault) 123.8 Glucose Level 97 mg/dL (70-99) Calcium Level 8.7 mg/dL (8.5-10.1) Bedside Arterial pH 7.36 (7.35-7.45) Bedside Arterial pCO2 44 mmHg (35-45) Bedside Arterial pO2 124 mmHg (75-100) Arterial Blood HCO3 25 mmol/L (21-28) Bedside Arterial Blood O2 Sat 99 % (95-99) Bedside FiO2 50.0 Test 08/28/19 16:38 08/29/19 04:15 08/29/19 09:04 08/29/19 09:15 Glucose (Fingerstick) 133 mg/dL (70-99) 85 mg/dL (70-99) White Blood Count 6.6 x10^3/uL (4.0-11.0) Red Blood Count 3.94 x10^6/uL (3.50-5.40) Hemoglobin 11.0 g/dL (12.0-15.5) Hematocrit 33.1 % (36.0-47.0) Mean Corpuscular Volume 84 fL (79-100) Mean Corpuscular Hemoglobin 28 pg (25-35) Mean Corpuscular Hemoglobin Concent 33 g/dL (31-37) Red Cell Distribution Width 12.9 % (11.5-14.5) Platelet Count 362 x10^3/uL (140-400) Neutrophils (%) (Auto) 68 % (31-73) Lymphocytes (%) (Auto) 12 % (24-48) Monocytes (%) (Auto) 17 % (0-9) Eosinophils (%) (Auto) 2 % (0-3) Basophils (%) (Auto) 1 % (0-3) Neutrophils # (Auto) 4.5 x10^3/uL (1.8-7.7) Lymphocytes # (Auto) 0.8 x10^3/uL (1.0-4.8) Monocytes # (Auto) 1.1 x10^3/uL (0.0-1.1) Eosinophils # (Auto) 0.1 x10^3/uL (0.0-0.7) Basophils # (Auto) 0.1 x10^3/uL (0.0-0.2) O2 Saturation 98 % (92-99) Arterial Blood pH 7.38 (7.35-7.45) Arterial Blood pCO2 at Patient Temp 44 mmHg (35-46) Arterial Blood pO2 at Patient Temp 126 mmHg (65-108) Arterial Blood HCO3 26 mmol/L (21-28) Arterial Blood Base Excess 0 mmol/L (-3-3) FiO2 50 Test 08/29/19 11:45 Glucose (Fingerstick) 102 mg/dL (70-99) Laboratory Tests Test 08/28/19 16:38 08/29/19 04:15 08/29/19 09:04 08/29/19 09:15 Glucose (Fingerstick) 133 mg/dL (70-99) 85 mg/dL (70-99) White Blood Count 6.6 x10^3/uL (4.0-11.0) Red Blood Count 3.94 x10^6/uL (3.50-5.40) Hemoglobin 11.0 g/dL (12.0-15.5) Hematocrit 33.1 % (36.0-47.0) Mean Corpuscular Volume 84 fL (79-100) Mean Corpuscular Hemoglobin 28 pg (25-35) Mean Corpuscular Hemoglobin Concent 33 g/dL (31-37) Red Cell Distribution Width 12.9 % (11.5-14.5) Platelet Count 362 x10^3/uL (140-400) Neutrophils (%) (Auto) 68 % (31-73) Lymphocytes (%) (Auto) 12 % (24-48) Monocytes (%) (Auto) 17 % (0-9) Eosinophils (%) (Auto) 2 % (0-3) Basophils (%) (Auto) 1 % (0-3) Neutrophils # (Auto) 4.5 x10^3/uL (1.8-7.7) Lymphocytes # (Auto) 0.8 x10^3/uL (1.0-4.8) Monocytes # (Auto) 1.1 x10^3/uL (0.0-1.1) Eosinophils # (Auto) 0.1 x10^3/uL (0.0-0.7) Basophils # (Auto) 0.1 x10^3/uL (0.0-0.2) O2 Saturation 98 % (92-99) Arterial Blood pH 7.38 (7.35-7.45) Arterial Blood pCO2 at Patient Temp 44 mmHg (35-46) Arterial Blood pO2 at Patient Temp 126 mmHg (65-108) Arterial Blood HCO3 26 mmol/L (21-28) Arterial Blood Base Excess 0 mmol/L (-3-3) FiO2 50 Test 08/29/19 11:45 Glucose (Fingerstick) 102 mg/dL (70-99) Microbiology 08/24/19 Urine Culture - Final, Complete 08/24/19 Urine Culture Result 1 (REUBEN) - Final, Complete 08/23/19 Blood Culture - Final, Complete NO GROWTH AFTER 5 DAYS Medications Current Medications Sodium Chloride 1,000 ml @ 1,000 mls/hr Q1H IV Last administered on 08/23/19at 17:20; Start 08/23/19 at 17:11; Stop 08/23/19 at 18:10; Status DC Ondansetron HCl (Zofran) 4 mg PRN Q8HRS PRN IV NAUSEA/VOMITING Last administered on 08/23/19at 21:54; Start 08/23/19 at 20:00; Stop 08/24/19 at 12:42; Status DC Morphine Sulfate (Morphine Sulfate) 2 mg PRN Q2HR PRN IV PAIN; Start 08/23/19 at 20:00; Stop 08/24/19 at 19:59; Status DC Sodium Chloride 1,000 ml @ 75 mls/hr [id number] IV Last administered on 08/24/19at 09:11; Start 08/23/19 at 19:51; Stop 08/24/19 at 19:50; Status DC Acetaminophen (Tylenol) 650 mg PRN Q4HRS PRN PO FEVER Last administered on 08/23/19at 21:55; Start 08/23/19 at 20:00; Stop 08/24/19 at 11:41; Status DC Sodium Chloride 1,000 ml @ 0 mls/hr 1X ONCE IV ; Start 08/23/19 at 20:15; Stop 08/23/19 at 20:21; Status DC Sodium Chloride 1,000 ml @ 1,000 mls/hr 1X ONCE IV Last administered on 08/23/19at 20:30; Start 08/23/19 at 20:30; Stop 08/23/19 at 21:29; Status DC Levofloxacin/ Dextrose 150 ml @ 100 mls/hr 1X ONCE IV Last administered on 08/23/19at 22:37; Start 08/23/19 at 22:30; Stop 08/23/19 at 23:59; Status DC Tramadol HCl (Ultram) 50 mg BID PO Last administered on 08/29/19at 08:59; Start 08/24/19 at 09:00 Zolpidem Tartrate (Ambien) 5 mg PRN QHS PRN PO INSOMNIA, MAY REPEAT X1; Start 08/24/19 at 00:45 Acetaminophen (Tylenol) 650 mg PRN Q6HRS PRN PO FEVER; Start 08/24/19 at 09:45; Stop 08/24/19 at 12:40; Status DC Colestipol HCl (Colestid) 1 gm BID@1000,2200 PO Last administered on 08/29/19at 11:40; Start 08/24/19 at 10:00 Hydroxyzine HCl (Atarax) 25 mg DAILY PRN PO ITCHING; Start 08/24/19 at 09:45 Lidocaine (Lidoderm) 1 patch DAILY TD Last administered on 08/24/19at 12:39; Start 08/24/19 at 10:00 Pantoprazole Sodium (Protonix) 40 mg DAILYAC PO Last administered on 08/26/19at 08:35; Start 08/24/19 at 10:00; Stop 08/26/19 at 15:49; Status DC Acetaminophen/ Butalbital/ Caffeine (Fioricet) 1 tab PRN Q6HRS PRN PO MIGRAINE HEADACHE; Start 08/24/19 at 09:45 Gabapentin (Neurontin) 80 mg BID PO Last administered on 08/24/19at 19:53; Start 08/24/19 at 10:00; Stop 08/25/19 at 09:54; Status DC Ondansetron HCl (Zofran Odt) 4 mg PRN Q8HRS PRN PO NAUSEA/VOMITING Last administered on 08/24/19at 12:36; Start 08/24/19 at 09:45 Miscellaneous (Lidoderm Patch Removal) 1 ea QHS MC Last administered on 08/28/19at 20:51; Start 08/24/19 at 21:00 Levofloxacin/ Dextrose 100 ml @ 100 mls/hr Q24H IV ; Start 08/24/19 at 10:00; Status UNV Levofloxacin/ Dextrose 150 ml @ 100 mls/hr Q48H IV ; Start 08/25/19 at 21:00; Stop 08/24/19 at 12:56; Status DC Sodium Chloride (Normal Saline Flush) 3 ml QSHIFT PRN IV AFTER MEDS AND BLOOD DRAWS; Start 08/24/19 at 12:15 Sodium Chloride 1,000 ml @ 100 mls/hr Q10H IV Last administered on 08/29/19at 09:02; Start 08/24/19 at 20:00 Ondansetron HCl (Zofran) 4 mg PRN Q4HRS PRN IV NAUSEA/VOMITING; Start 08/24/19 at 12:15 Acetaminophen (Tylenol) 650 mg PRN Q4HRS PRN PO TEMP OVER 100.4F OR MILD PAIN Last administered on 08/24/19at 19:53; Start 08/24/19 at 12:15 Al Hydroxide/Mg Hydroxide (Mylanta Plus Xs) 30 ml PRN DAILY PRN PO HEARTBURN / GAS; Start 08/24/19 at 12:15 Clonidine HCl (Catapres) 0.1 mg PRN Q6HRS PRN PO SBP>160 OR DBP>90; Start 08/24/19 at 12:15 Docusate Sodium (Colace) 100 mg PRN BID PRN PO CONSTIPATION; Start 08/24/19 at 12:15 Albuterol/ Ipratropium (Duoneb) 3 ml Q4H NEB Last administered on 08/26/19at 04:40; Start 08/24/19 at 12:00; Stop 08/26/19 at 17:15; Status DC Guaifenesin (Robitussin) 200 mg PRN Q4HRS PRN PO COUGH; Start 08/24/19 at 12:15 Lorazepam (Ativan) 0.5 mg PRN Q4HRS PRN PO ANXIETY / AGITATION; Start 08/24/19 at 12:15 Enoxaparin Sodium (Lovenox 40mg Syringe) 40 mg Q24H SQ Last administered on 08/28/19at 16:36; Start 08/24/19 at 16:00 Sodium Chloride 1,000 ml @ 1,920 mls/hr Q32M IV Last administered on 08/24/19at 12:30; Start 08/24/19 at 12:30; Stop 08/24/19 at 13:30; Status DC Sodium Chloride 500 ml @ 1,000 mls/hr PRN Q30MIN PRN IV SEE COMMENTS; Start 08/24/19 at 12:30 Cefepime HCl (Maxipime) 2 gm Q12HR IVP Last administered on 08/29/19at 08:59; Start 08/24/19 at 14:00 Vasopressin 20 unit/Dextrose 101 ml @ 12 mls/hr CONT PRN IV SEE I/O RECORD; Start 08/24/19 at 12:30 Dobutamine HCl/ Dextrose 250 ml @ 0 mls/hr CONT PRN IV SEE I/O RECORD; Start 08/24/19 at 12:30 Azithromycin (Zithromax) 500 mg 1X ONCE PO Last administered on 08/24/19at 14:00; Start 08/24/19 at 13:00; Stop 08/24/19 at 13:23; Status DC Azithromycin (Zithromax) 250 mg DAILY PO Last administered on 08/26/19at 08:36; Start 08/25/19 at 09:00; Stop 08/26/19 at 09:57; Status DC Hydroxychloroquine Sulfate (Plaquenil) 400 mg BID PO Last administered on 08/24/19at 19:53; Start 08/24/19 at 14:00; Stop 08/24/19 at 21:01; Status DC Hydroxychloroquine Sulfate (Plaquenil) 200 mg BID PO Last administered on 08/28/19at 20:43; Start 08/25/19 at 09:00; Stop 08/28/19 at 21:01; Status DC Fentanyl Citrate 30 ml @ 0 mls/hr CONT PRN IV SEE PROTOCOL Last administered on 08/29/19at 06:35; Start 08/24/19 at 22:30 Propofol 100 ml @ 0 mls/hr CONT PRN IV SEE PROTOCOL Last administered on 08/24/19at 23:42; Start 08/24/19 at 22:30 Chlorhexidine Gluconate (Peridex) 15 ml BID MM ; Start 08/25/19 at 09:00; Stop 08/25/19 at 12:11; Status DC Propofol 100 ml @ As Directed STK-MED ONCE IV ; Start 08/24/19 at 22:26; Stop 08/24/19 at 22:27; Status DC Succinylcholine Chloride (Anectine) 200 mg 1X ONCE IV Last administered on 08/24/19at 23:41; Start 08/24/19 at 23:00; Stop 08/24/19 at 23:01; Status DC Midazolam HCl 50 mg/Sodium Chloride 50 ml @ 1 mls/hr CONT PRN IV SEE I/O RECORD Last administered on 08/25/19at 05:28; Start 08/25/19 at 00:00; Stop 08/25/19 at 15:11; Status DC Midazolam HCl 50 mg/Sodium Chloride 50 ml @ 1 mls/hr CONT PRN IV SEE I/O RECORD; Start 08/25/19 at 00:00; Status UNV Sodium Chloride 500 ml @ 500 mls/hr 1X ONCE IV Last administered on 08/25/19at 01:00; Start 08/25/19 at 02:00; Stop 08/25/19 at 02:59; Status DC Norepinephrine Bitartrate 8 mg/ Dextrose 258 ml @ 17.512 mls/ hr CONT PRN IV PER PROTOCOL Last administered on 08/25/19at 15:15; Start 08/25/19 at 02:00 Succinylcholine Chloride (Anectine) 200 mg STK-MED ONCE .ROUTE ; Start 08/25/19 at 03:33; Stop 08/25/19 at 03:34; Status DC Gabapentin (Neurontin) 800 mg BID PO Last administered on 08/29/19at 08:59; Start 08/25/19 at 09:00 Acetaminophen (Tylenol) 650 mg PRN Q6HRS PRN PEG MILD PAIN / TEMP Last administered on 08/25/19at 12:15; Start 08/25/19 at 12:15 Midazolam HCl 100 mg/Sodium Chloride 100 ml @ 5 mls/hr CONT PRN IV SEE I/O RECORD; Start 08/25/19 at 13:00; Stop 08/25/19 at 12:58; Status DC Midazolam HCl 100 mg/Sodium Chloride 100 ml @ 5 mls/hr CONT PRN IV SEE I/O RECORD Last administered on 08/29/19at 04:26; Start 08/25/19 at 16:00 Azithromycin 250 mg/Sodium Chloride 250 ml @ 250 mls/hr Q24H IV Last administered on 08/29/19at 09:01; Start 3/30/20 at 09:00 Lansoprazole (Prevacid) 30 mg DAILY FT Last administered on 08/27/19at 07:52; Start 08/27/19 at 09:00; Stop 08/28/19 at 09:38; Status DC Albuterol/ Ipratropium (Duoneb) 3 ml PRN Q4HRS PRN NEB SHORTNESS OF BREATH; Start 08/26/19 at 17:15; Stop 08/26/19 at 17:30; Status DC Insulin Human Lispro (HumaLOG) 0-5 UNITS TIDWMEALS SQ ; Start 08/27/19 at 17:00 Dextrose (Dextrose 50%-Water Syringe) 12.5 gm PRN Q15MIN PRN IV SEE COMMENTS; Start 08/27/19 at 14:30 Pantoprazole Sodium (PROTONIX VIAL for IV PUSH) 40 mg DAILYAC IVP Last administered on 08/29/19at 08:58; Start 08/28/19 at 11:00 Active Scripts Active Pyridium (Phenazopyridine Hcl) 200 Mg Tablet 1 Tab PO TID 3 Days Ciprofloxacin Hcl 500 Mg Tablet 1 Tab PO BID Lidocaine PATCH (Lidocaine) 1 Each Adh..patch 1 Patch TD DAILY Fiorinal 50-325-40 Mg Capsule (Butalbital/Aspirin/Caffeine) 1 Each Capsule 1 Each PO Q6HRS PRN Zofran (Ondansetron Hcl) 4 Mg Tablet 4 Mg PO PRN TID PRN nausea/vomiting Tylenol (Acetaminophen) 325 Mg Tablet 650 Mg PO PRN Q6HRS PRN 30 Days Pantoprazole Sodium (Pantoprazole Sodium) 40 Mg Tablet.dr 40 Mg PO DAILYAC 30 Days Reported Metoprolol Tartrate 25 Mg Tablet 25 Mg PO BID Dicyclomine Hcl 10 Mg Capsule 1 Cap PO BID PRN Imitrex (Sumatriptan Succinate) 100 Mg Tablet 1 Tab PO BID PRN Hydroxyzine Hcl 25 Mg Tablet 1 Tab PO DAILY PRN Diclofenac Sodium 75 Mg Tablet.dr 1 Tab PO BID Zolpidem Tartrate 10 Mg Tablet 10 Mg PO HS Lisinopril 10 Mg Tablet 1 Tab PO HS Gabapentin 800 Mg Tablet 1 Tab PO BID Cyclobenzaprine Hcl 10 Mg Tablet 1 Tab PO BID PRN Colestipol Hcl 1 Gm Tablet 1 Gm PO BID Tramadol Hcl 50 Mg Tablet 1 Tab PO BID Vitals/I & O Vital Sign - Last 24 Hours 08/28/19 08/28/19 08/28/19 08/28/19 15:00 16:00 16:00 16:06 Temp 98.6 98.6 Pulse 82 66 Resp 19 19 B/P (MAP) 107/56 (73) 119/59 (79) Pulse Ox 96 96 95 O2 Delivery Ventilator Mechanical Ventilator Ventilator 08/28/19 08/28/19 08/28/19 08/28/19 17:00 18:00 19:00 19:24 Pulse 70 68 72 Resp 18 17 19 B/P (MAP) 119/58 (78) 110/56 (74) 113/63 (80) Pulse Ox 97 97 97 97 O2 Delivery Ventilator Ventilator Ventilator O2 Flow Rate 40.0 08/28/19 08/28/19 08/28/19 08/28/19 20:00 20:20 20:42 20:49 Temp 99.2 99.2 Pulse 74 Resp 17 B/P (MAP) 126/67 (86) Pulse Ox 96 97 97 97 O2 Delivery Ventilator O2 Flow Rate 40.0 40.0 08/28/19 08/28/19 08/28/19 08/28/19 21:00 21:00 22:00 23:00 Pulse 84 83 82 Resp 19 18 18 B/P (MAP) 126/58 (80) 127/59 (81) 129/62 (84) Pulse Ox 96 96 96 O2 Delivery Mechanical Ventilator Ventilator Ventilator Ventilator 08/28/19 08/28/19 08/28/19 08/29/19 23:50 23:59 23:59 01:00 Temp 99.5 99.5 Pulse 76 98 Resp 17 17 B/P (MAP) 115/55 (75) 136/61 (86) Pulse Ox 97 97 97 O2 Delivery Mechanical Ventilator Ventilator Ventilator 08/29/19 08/29/19 08/29/19 08/29/19 02:00 03:00 03:46 04:00 Pulse 72 63 Resp 18 17 B/P (MAP) 112/69 (83) 118/58 (78) Pulse Ox 96 97 97 O2 Delivery Ventilator Ventilator Mechanical Ventilator 08/29/19 08/29/19 08/29/19 08/29/19 04:00 05:06 06:00 06:35 Temp 99.0 99.0 Pulse 58 62 68 Resp 18 18 18 14 B/P (MAP) 105/62 (76) 112/58 (76) 128/58 (81) Pulse Ox 97 97 97 97 O2 Delivery Ventilator Ventilator Ventilator 08/29/19 08/29/19 08/29/19 08/29/19 07:00 07:05 08:00 08:50 Temp 98.7 98.7 Pulse 60 64 Resp 13 20 14 B/P (MAP) 131/63 (85) 114/53 (73) Pulse Ox 98 97 98 98 O2 Delivery Ventilator Ventilator Ventilator 08/29/19 08/29/19 08/29/19 08/29/19 08:59 09:00 10:00 10:00 Pulse 64 68 Resp 14 12 20 15 B/P (MAP) 129/60 (83) 128/59 (82) Pulse Ox 99 99 97 98 O2 Delivery Ventilator Ventilator Ventilator Ventilator 08/29/19 08/29/19 08/29/19 08/29/19 11:00 12:00 12:05 13:00 Temp 98.9 98.9 Pulse 64 70 66 Resp 14 14 14 B/P (MAP) 126/58 (80) 134/63 (86) 131/65 (87) Pulse Ox 97 97 95 97 O2 Delivery Ventilator Ventilator Ventilator 08/29/19 14:00 Pulse 66 Resp 14 B/P (MAP) 137/66 (89) Pulse Ox 97 O2 Delivery Ventilator Intake and Output 08/28/19 08/28/19 08/29/19 15:00 23:00 07:00 Intake Total 350 ml 941 ml 648 ml Output Total 850 ml 825 ml 775 ml Balance -500 ml 116 ml -127 ml KARLOS ALANIZ MD Aug 29, 2019 14:59
--- NOTE | 2019-08-29 15:50 | EKG ---
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
[2019-08-29] MEDS: ENOXAPARIN 40 MG/0.4 ML SYRINGE. SQ SCH (16:03)
[2019-08-29] MEDS: PATCH REMOVAL. MC SCH (20:52)
[2019-08-30] VITALS (24 sets, daily range): BP systolic 108–157; BP diastolic 48–72
[2019-08-30] MEDS: MIDAZOLAM HCL 100 MG in IV NORMAL SALINE 100ML 100 ML IV PRN ×2 (03:00→17:04)
[2019-08-30] MEDS: IV NORMAL SALINE 1000ML BAG 1,000 ML IV SCH ×3 (05:32→23:46)
[2019-08-30 07:19] LABS: BASO % 1 % (0-3); EOS # 0.2 x10^3/uL (0.0-0.7); EOS % 2 % (0-3); HEMOGLOBIN 10.8 g/dL (12.0-15.5); LYMPH # 0.6 x10^3/uL (1.0-4.8); LYMPH % 8 % (24-48); MEAN CORPUSCULAR HEMOGLOBIN 28 pg (25-35); MEAN CORPUSCULAR HGB CONC 34 g/dL (31-37); MEAN CORPUSCULAR VOLUME 84 fL (79-100); MONO # 1.1 x10^3/uL (0.0-1.1); MONO % 15 % (0-9); NEUT # 5.4 x10^3/uL (1.8-7.7); NEUT % 74 % (31-73); PLATELET COUNT 427 x10^3/uL (140-400); RED BLOOD COUNT 3.82 x10^6/uL (3.50-5.40); RED CELL DISTRIBUTION WIDTH 12.7 % (11.5-14.5); WHITE BLOOD COUNT 7.3 x10^3/uL (4.0-11.0)
--- NOTE | 2019-08-30 07:43 | PDOC ---
PULMONARY PROGRESS NOTES Subjective Patient remains hemodynamically stable Patient currently sedated, assist control ventilation. Rate of 18, 50% FiO2, 450 tidal volume Currently off pressors Vitals Vital Signs Date Time Temp Pulse Resp B/P (MAP) Pulse Ox O2 Delivery O2 Flow Rate FiO2 08/30/19 06:00 78 14 119/54 (75) 98 Ventilator 08/30/19 05:30 99.7 99.7 08/30/19 03:00 40.0 Comments Visual exam done no respiratory distress, sedated, on vent no JVD, no leg edema, no rash Labs Laboratory Tests Test 08/28/19 09:54 08/28/19 12:44 08/28/19 16:38 08/29/19 04:15 Bedside Arterial pH 7.36 (7.35-7.45) Bedside Arterial pCO2 44 mmHg (35-45) Bedside Arterial pO2 124 mmHg (75-100) Arterial Blood HCO3 25 mmol/L (21-28) Bedside Arterial Blood O2 Sat 99 % (95-99) Bedside FiO2 50.0 Glucose (Fingerstick) 135 mg/dL (70-99) 133 mg/dL (70-99) White Blood Count 6.6 x10^3/uL (4.0-11.0) Red Blood Count 3.94 x10^6/uL (3.50-5.40) Hemoglobin 11.0 g/dL (12.0-15.5) Hematocrit 33.1 % (36.0-47.0) Mean Corpuscular Volume 84 fL (79-100) Mean Corpuscular Hemoglobin 28 pg (25-35) Mean Corpuscular Hemoglobin Concent 33 g/dL (31-37) Red Cell Distribution Width 12.9 % (11.5-14.5) Platelet Count 362 x10^3/uL (140-400) Neutrophils (%) (Auto) 68 % (31-73) Lymphocytes (%) (Auto) 12 % (24-48) Monocytes (%) (Auto) 17 % (0-9) Eosinophils (%) (Auto) 2 % (0-3) Basophils (%) (Auto) 1 % (0-3) Neutrophils # (Auto) 4.5 x10^3/uL (1.8-7.7) Lymphocytes # (Auto) 0.8 x10^3/uL (1.0-4.8) Monocytes # (Auto) 1.1 x10^3/uL (0.0-1.1) Eosinophils # (Auto) 0.1 x10^3/uL (0.0-0.7) Basophils # (Auto) 0.1 x10^3/uL (0.0-0.2) Test 08/29/19 09:04 08/29/19 09:15 08/29/19 11:45 08/29/19 17:16 Glucose (Fingerstick) 85 mg/dL (70-99) 102 mg/dL (70-99) 99 mg/dL (70-99) O2 Saturation 98 % (92-99) Arterial Blood pH 7.38 (7.35-7.45) Arterial Blood pCO2 at Patient Temp 44 mmHg (35-46) Arterial Blood pO2 at Patient Temp 126 mmHg (65-108) Arterial Blood HCO3 26 mmol/L (21-28) Arterial Blood Base Excess 0 mmol/L (-3-3) FiO2 50 Test 08/30/19 00:37 08/30/19 05:58 Glucose (Fingerstick) 92 mg/dL (70-99) White Blood Count 7.3 x10^3/uL (4.0-11.0) Red Blood Count 3.82 x10^6/uL (3.50-5.40) Hemoglobin 10.8 g/dL (12.0-15.5) Hematocrit 32.0 % (36.0-47.0) Mean Corpuscular Volume 84 fL (79-100) Mean Corpuscular Hemoglobin 28 pg (25-35) Mean Corpuscular Hemoglobin Concent 34 g/dL (31-37) Red Cell Distribution Width 12.7 % (11.5-14.5) Platelet Count 427 x10^3/uL (140-400) Neutrophils (%) (Auto) 74 % (31-73) Lymphocytes (%) (Auto) 8 % (24-48) Monocytes (%) (Auto) 15 % (0-9) Eosinophils (%) (Auto) 2 % (0-3) Basophils (%) (Auto) 1 % (0-3) Neutrophils # (Auto) 5.4 x10^3/uL (1.8-7.7) Lymphocytes # (Auto) 0.6 x10^3/uL (1.0-4.8) Monocytes # (Auto) 1.1 x10^3/uL (0.0-1.1) Eosinophils # (Auto) 0.2 x10^3/uL (0.0-0.7) Basophils # (Auto) 0.0 x10^3/uL (0.0-0.2) Laboratory Tests Test 08/29/19 09:04 08/29/19 09:15 08/29/19 11:45 08/29/19 17:16 Glucose (Fingerstick) 85 mg/dL (70-99) 102 mg/dL (70-99) 99 mg/dL (70-99) O2 Saturation 98 % (92-99) Arterial Blood pH 7.38 (7.35-7.45) Arterial Blood pCO2 at Patient Temp 44 mmHg (35-46) Arterial Blood pO2 at Patient Temp 126 mmHg (65-108) Arterial Blood HCO3 26 mmol/L (21-28) Arterial Blood Base Excess 0 mmol/L (-3-3) FiO2 50 Test 08/30/19 00:37 08/30/19 05:58 Glucose (Fingerstick) 92 mg/dL (70-99) White Blood Count 7.3 x10^3/uL (4.0-11.0) Red Blood Count 3.82 x10^6/uL (3.50-5.40) Hemoglobin 10.8 g/dL (12.0-15.5) Hematocrit 32.0 % (36.0-47.0) Mean Corpuscular Volume 84 fL (79-100) Mean Corpuscular Hemoglobin 28 pg (25-35) Mean Corpuscular Hemoglobin Concent 34 g/dL (31-37) Red Cell Distribution Width 12.7 % (11.5-14.5) Platelet Count 427 x10^3/uL (140-400) Neutrophils (%) (Auto) 74 % (31-73) Lymphocytes (%) (Auto) 8 % (24-48) Monocytes (%) (Auto) 15 % (0-9) Eosinophils (%) (Auto) 2 % (0-3) Basophils (%) (Auto) 1 % (0-3) Neutrophils # (Auto) 5.4 x10^3/uL (1.8-7.7) Lymphocytes # (Auto) 0.6 x10^3/uL (1.0-4.8) Monocytes # (Auto) 1.1 x10^3/uL (0.0-1.1) Eosinophils # (Auto) 0.2 x10^3/uL (0.0-0.7) Basophils # (Auto) 0.0 x10^3/uL (0.0-0.2) Medications Active Scripts Medications Dose Route/Sig Max Daily Dose Days Date Category Dose Instructions Pyridium (Phenazopyridine Hcl) 200 Mg Tablet 1 Tab PO TID 3 04/16/19 Rx Ciprofloxacin Hcl 500 Mg Tablet 1 Tab PO BID 04/16/19 Rx Lidocaine PATCH (Lidocaine) 1 Each Adh..patch 1 Patch TD DAILY 04/16/19 Rx Metoprolol Tartrate 25 Mg Tablet 25 Mg PO BID 04/15/19 Reported Fiorinal 50-325-40 Mg Capsule (Butalbital/Aspirin/Caffeine) 1 Each Capsule 1 Each PO Q6HRS PRN 03/27/19 Rx Zofran (Ondansetron Hcl) 4 Mg Tablet 4 Mg PO PRN TID PRN 03/27/19 Rx nausea/vomiting Tylenol (Acetaminophen) 325 Mg Tablet 650 Mg PO PRN Q6HRS PRN 30 03/06/19 Rx Pantoprazole Sodium (Pantoprazole Sodium) 40 Mg Tablet.dr 40 Mg PO DAILYAC 30 03/06/19 Rx Dicyclomine Hcl 10 Mg Capsule 1 Cap PO BID PRN 11/27/18 Reported Imitrex (Sumatriptan Succinate) 100 Mg Tablet 1 Tab PO BID PRN 11/27/18 Reported Hydroxyzine Hcl 25 Mg Tablet 1 Tab PO DAILY PRN 11/27/18 Reported Diclofenac Sodium 75 Mg Tablet.dr 1 Tab PO BID 11/27/18 Reported Zolpidem Tartrate 10 Mg Tablet 10 Mg PO HS 11/27/18 Reported Lisinopril 10 Mg Tablet 1 Tab PO HS 06/14/18 Reported Gabapentin 800 Mg Tablet 1 Tab PO BID 06/17/14 Reported Cyclobenzaprine Hcl 10 Mg Tablet 1 Tab PO BID PRN 06/17/14 Reported Colestipol Hcl 1 Gm Tablet 1 Gm PO BID 06/17/14 Reported Tramadol Hcl 50 Mg Tablet 1 Tab PO BID 06/17/14 Reported Comments CXR 4 reviewed bilateral patchy infiltrates Impression . 1. Acute Respiratory failure due to COVID19 Pneumonia/ ARDS 2. Pneumonia, mycoplasma positive/ in addition to COVID-19 pneumonia 3. Acute respiratory failure multifactorial/ARDS 4. COVID-19 positive test (U07.1, COVID-19) with Acute Respiratory Distress Syndrome (ARDS) (J80, ARDS) (If respiratory failure or sepsis present, add as separate assessment) 5. Protein malnutrition present upon admission, severe Chest x-ray reviewed Plan . AC mode FIO45%, 7 PEEP, will review ABG today and wean Fio2 if possible Continue Zithromax, Plaquenil. Repeat fibrinogen, d-dimer, noted. No significant change from baseline Labs reviewed, white cell, count within normal limits Pro calcitonin note May consider weaning sedation today Continue current support follow labs, ABG, chest x-ray. Cumulative critical care time of 30 minutes, reviewing data, labs, chest x-ray, making adjustments on mechanical ventilation, addend: ABG improving. will wean off sedation and once awake, CPAP trial AMADOU SANTOS MD Aug 30, 2019 07:43
[2019-08-30] MEDS: INSULIN LISPRO 300 UNITS/3 ML VIAL. SQ SCH ×3 (08:00→17:00)
[2019-08-30] MEDS: PANTOPRAZOLE IV PUSH 40 MG VIAL. IVP SCH (08:18)
[2019-08-30] MEDS: CEFEPIME HCL IV Push 2 GM VIAL. IVP SCH ×2 (08:18→21:54)
[2019-08-30] MEDS: AZITHROMYCIN 250 MG in IV NORMAL SALINE 250ML 250 ML IV SCH (08:18)
[2019-08-30] MEDS: LIDOCAINE (700MG/PATCH) PATCH. TD SCH (08:19)
[2019-08-30] MEDS: traMADol 50 MG TABLET PO SCH ×2 (08:19→21:00)
[2019-08-30] MEDS: COLESTIPOL HCL 1 GM TABLET PO SCH ×2 (08:19→21:55)
[2019-08-30] MEDS: GABAPENTIN 400 MG CAPSULE. PO SCH ×2 (08:19→21:54)
[2019-08-30 08:34] LABS: BASE EXCESS ABG 1 mmol/L (-3-3); HCO3 ABG 25 mmol/L (21-28); PCO2 ABG 42 mmHg (35-46); PO2 ABG 103 mmHg (65-108); SAT O2 ABG 98 % (92-99)
[2019-08-30 09:54] LABS: FIO2 ABG 45 +7
--- NOTE | 2019-08-30 14:02 | PDOC ---
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 GERD Acute kidney injury Asthma history of essential Hypertension Dehydration Severe malnutrition Plan: Continue Zithromax and Plaquenil Continue supportive measures and ventilatory support further recommendations based on clinical course. banking consultant considering a weaning trial History of Present Illness History of Present Illness 08/29/2019 Patient remains critically stable, oxygen requirements at 50% discussed with nursing staff at bedside [id number] Patient seen and examined in the ICU She remains mechanically ventilated Assist-control/12/400/50% with 8 of PEEP Sedated with Versed and fentanyl OG feeds running She is Covid 19 positive [id number] Patient seen and examined in the ICU She is extremely critically ill Covid testing is positive Reviewed chest x-ray and CAT scan Discussed with RN Reviewed chart She is on assist-control 18/400/50% Sedated with Versed and fentanyl Also has a maintenance IV [id number] Patient is mechanically ventilated assist-control/18/400/50% Her Covid 19 testing now is positive Chart reviewed Discussed with RN [id number] Patient seen and examined Discussed with RN I called the pharmacy to start some azithromycin because she is now mycoplasma positive Mechanically ventilated Before meals/18/450/50% Chart reviewed Prognosis guarded Vitals Vitals Vital Signs Date Time Temp Pulse Resp B/P (MAP) Pulse Ox O2 Delivery O2 Flow Rate FiO2 08/30/19 12:00 Mechanical Ventilator 08/30/19 12:00 98 08/30/19 10:00 65 14 119/56 (77) 08/30/19 09:19 40.0 08/30/19 07:00 99.0 99.0 Physical Exam Physical Exam She is sedated with Versed and fentanyl General: No acute distress, Other (sedated on the vent) Heart: Regular rate (sedated and intubated), Normal S1 Abdomen: Soft Extremities: No cyanosis Skin: No rashes, No breakdown Labs LABS Laboratory Tests Test 08/29/19 17:16 08/30/19 00:37 08/30/19 05:58 08/30/19 08:00 Glucose (Fingerstick) 99 mg/dL (70-99) 92 mg/dL (70-99) White Blood Count 7.3 x10^3/uL (4.0-11.0) Red Blood Count 3.82 x10^6/uL (3.50-5.40) Hemoglobin 10.8 g/dL (12.0-15.5) Hematocrit 32.0 % (36.0-47.0) Mean Corpuscular Volume 84 fL (79-100) Mean Corpuscular Hemoglobin 28 pg (25-35) Mean Corpuscular Hemoglobin Concent 34 g/dL (31-37) Red Cell Distribution Width 12.7 % (11.5-14.5) Platelet Count 427 x10^3/uL (140-400) Neutrophils (%) (Auto) 74 % (31-73) Lymphocytes (%) (Auto) 8 % (24-48) Monocytes (%) (Auto) 15 % (0-9) Eosinophils (%) (Auto) 2 % (0-3) Basophils (%) (Auto) 1 % (0-3) Neutrophils # (Auto) 5.4 x10^3/uL (1.8-7.7) Lymphocytes # (Auto) 0.6 x10^3/uL (1.0-4.8) Monocytes # (Auto) 1.1 x10^3/uL (0.0-1.1) Eosinophils # (Auto) 0.2 x10^3/uL (0.0-0.7) Basophils # (Auto) 0.0 x10^3/uL (0.0-0.2) O2 Saturation 98 % (92-99) Arterial Blood pH 7.40 (7.35-7.45) Arterial Blood pCO2 at Patient Temp 42 mmHg (35-46) Arterial Blood pO2 at Patient Temp 103 mmHg (65-108) Arterial Blood HCO3 25 mmol/L (21-28) Arterial Blood Base Excess 1 mmol/L (-3-3) FiO2 45 +7 Test 08/30/19 12:12 Glucose (Fingerstick) 87 mg/dL (70-99) Assessment and Plan Assessmemt and Plan Problems Medical Problems: (1) Hypotension Status: Acute (2) Hypoxia Status: Acute (3) Right-sided chest pain Status: Acute (4) Suspected 2019-nCoV infection Status: Acute Comment Review of Relevant I have reviewed the following items tori (where applicable) has been applied. Labs Laboratory Tests Test 08/28/19 16:38 08/29/19 04:15 08/29/19 09:04 08/29/19 09:15 Glucose (Fingerstick) 133 mg/dL (70-99) 85 mg/dL (70-99) White Blood Count 6.6 x10^3/uL (4.0-11.0) Red Blood Count 3.94 x10^6/uL (3.50-5.40) Hemoglobin 11.0 g/dL (12.0-15.5) Hematocrit 33.1 % (36.0-47.0) Mean Corpuscular Volume 84 fL (79-100) Mean Corpuscular Hemoglobin 28 pg (25-35) Mean Corpuscular Hemoglobin Concent 33 g/dL (31-37) Red Cell Distribution Width 12.9 % (11.5-14.5) Platelet Count 362 x10^3/uL (140-400) Neutrophils (%) (Auto) 68 % (31-73) Lymphocytes (%) (Auto) 12 % (24-48) Monocytes (%) (Auto) 17 % (0-9) Eosinophils (%) (Auto) 2 % (0-3) Basophils (%) (Auto) 1 % (0-3) Neutrophils # (Auto) 4.5 x10^3/uL (1.8-7.7) Lymphocytes # (Auto) 0.8 x10^3/uL (1.0-4.8) Monocytes # (Auto) 1.1 x10^3/uL (0.0-1.1) Eosinophils # (Auto) 0.1 x10^3/uL (0.0-0.7) Basophils # (Auto) 0.1 x10^3/uL (0.0-0.2) O2 Saturation 98 % (92-99) Arterial Blood pH 7.38 (7.35-7.45) Arterial Blood pCO2 at Patient Temp 44 mmHg (35-46) Arterial Blood pO2 at Patient Temp 126 mmHg (65-108) Arterial Blood HCO3 26 mmol/L (21-28) Arterial Blood Base Excess 0 mmol/L (-3-3) FiO2 50 Test 08/29/19 11:45 08/29/19 17:16 08/30/19 00:37 08/30/19 05:58 Glucose (Fingerstick) 102 mg/dL (70-99) 99 mg/dL (70-99) 92 mg/dL (70-99) White Blood Count 7.3 x10^3/uL (4.0-11.0) Red Blood Count 3.82 x10^6/uL (3.50-5.40) Hemoglobin 10.8 g/dL (12.0-15.5) Hematocrit 32.0 % (36.0-47.0) Mean Corpuscular Volume 84 fL (79-100) Mean Corpuscular Hemoglobin 28 pg (25-35) Mean Corpuscular Hemoglobin Concent 34 g/dL (31-37) Red Cell Distribution Width 12.7 % (11.5-14.5) Platelet Count 427 x10^3/uL (140-400) Neutrophils (%) (Auto) 74 % (31-73) Lymphocytes (%) (Auto) 8 % (24-48) Monocytes (%) (Auto) 15 % (0-9) Eosinophils (%) (Auto) 2 % (0-3) Basophils (%) (Auto) 1 % (0-3) Neutrophils # (Auto) 5.4 x10^3/uL (1.8-7.7) Lymphocytes # (Auto) 0.6 x10^3/uL (1.0-4.8) Monocytes # (Auto) 1.1 x10^3/uL (0.0-1.1) Eosinophils # (Auto) 0.2 x10^3/uL (0.0-0.7) Basophils # (Auto) 0.0 x10^3/uL (0.0-0.2) Test 08/30/19 08:00 08/30/19 12:12 O2 Saturation 98 % (92-99) Arterial Blood pH 7.40 (7.35-7.45) Arterial Blood pCO2 at Patient Temp 42 mmHg (35-46) Arterial Blood pO2 at Patient Temp 103 mmHg (65-108) Arterial Blood HCO3 25 mmol/L (21-28) Arterial Blood Base Excess 1 mmol/L (-3-3) FiO2 45 +7 Glucose (Fingerstick) 87 mg/dL (70-99) Laboratory Tests Test 08/29/19 17:16 08/30/19 00:37 08/30/19 05:58 08/30/19 08:00 Glucose (Fingerstick) 99 mg/dL (70-99) 92 mg/dL (70-99) White Blood Count 7.3 x10^3/uL (4.0-11.0) Red Blood Count 3.82 x10^6/uL (3.50-5.40) Hemoglobin 10.8 g/dL (12.0-15.5) Hematocrit 32.0 % (36.0-47.0) Mean Corpuscular Volume 84 fL (79-100) Mean Corpuscular Hemoglobin 28 pg (25-35) Mean Corpuscular Hemoglobin Concent 34 g/dL (31-37) Red Cell Distribution Width 12.7 % (11.5-14.5) Platelet Count 427 x10^3/uL (140-400) Neutrophils (%) (Auto) 74 % (31-73) Lymphocytes (%) (Auto) 8 % (24-48) Monocytes (%) (Auto) 15 % (0-9) Eosinophils (%) (Auto) 2 % (0-3) Basophils (%) (Auto) 1 % (0-3) Neutrophils # (Auto) 5.4 x10^3/uL (1.8-7.7) Lymphocytes # (Auto) 0.6 x10^3/uL (1.0-4.8) Monocytes # (Auto) 1.1 x10^3/uL (0.0-1.1) Eosinophils # (Auto) 0.2 x10^3/uL (0.0-0.7) Basophils # (Auto) 0.0 x10^3/uL (0.0-0.2) O2 Saturation 98 % (92-99) Arterial Blood pH 7.40 (7.35-7.45) Arterial Blood pCO2 at Patient Temp 42 mmHg (35-46) Arterial Blood pO2 at Patient Temp 103 mmHg (65-108) Arterial Blood HCO3 25 mmol/L (21-28) Arterial Blood Base Excess 1 mmol/L (-3-3) FiO2 45 +7 Test 08/30/19 12:12 Glucose (Fingerstick) 87 mg/dL (70-99) Microbiology 08/24/19 Urine Culture - Final, Complete 08/24/19 Urine Culture Result 1 (REUBEN) - Final, Complete 08/23/19 Blood Culture - Final, Complete NO GROWTH AFTER 5 DAYS Medications Current Medications Sodium Chloride 1,000 ml @ 1,000 mls/hr Q1H IV Last administered on 08/23/19at 17:20; Start 08/23/19 at 17:11; Stop 08/23/19 at 18:10; Status DC Ondansetron HCl (Zofran) 4 mg PRN Q8HRS PRN IV NAUSEA/VOMITING Last administered on 08/23/19at 21:54; Start 08/23/19 at 20:00; Stop 08/24/19 at 12:42; Status DC Morphine Sulfate (Morphine Sulfate) 2 mg PRN Q2HR PRN IV PAIN; Start 08/23/19 at 20:00; Stop 08/24/19 at 19:59; Status DC Sodium Chloride 1,000 ml @ 75 mls/hr [id number] IV Last administered on 08/24/19at 09:11; Start 08/23/19 at 19:51; Stop 08/24/19 at 19:50; Status DC Acetaminophen (Tylenol) 650 mg PRN Q4HRS PRN PO FEVER Last administered on 08/23/19at 21:55; Start 08/23/19 at 20:00; Stop 08/24/19 at 11:41; Status DC Sodium Chloride 1,000 ml @ 0 mls/hr 1X ONCE IV ; Start 08/23/19 at 20:15; Stop 08/23/19 at 20:21; Status DC Sodium Chloride 1,000 ml @ 1,000 mls/hr 1X ONCE IV Last administered on 08/23/19at 20:30; Start 08/23/19 at 20:30; Stop 08/23/19 at 21:29; Status DC Levofloxacin/ Dextrose 150 ml @ 100 mls/hr 1X ONCE IV Last administered on 08/23/19at 22:37; Start 08/23/19 at 22:30; Stop 08/23/19 at 23:59; Status DC Tramadol HCl (Ultram) 50 mg BID PO Last administered on 08/30/19at 08:19; Start 08/24/19 at 09:00 Zolpidem Tartrate (Ambien) 5 mg PRN QHS PRN PO INSOMNIA, MAY REPEAT X1; Start 08/24/19 at 00:45 Acetaminophen (Tylenol) 650 mg PRN Q6HRS PRN PO FEVER; Start 08/24/19 at 09:45; Stop 08/24/19 at 12:40; Status DC Colestipol HCl (Colestid) 1 gm BID@1000,2200 PO Last administered on 08/30/19at 08:19; Start 08/24/19 at 10:00 Hydroxyzine HCl (Atarax) 25 mg DAILY PRN PO ITCHING; Start 08/24/19 at 09:45 Lidocaine (Lidoderm) 1 patch DAILY TD Last administered on 08/30/19at 08:19; Start 08/24/19 at 10:00 Pantoprazole Sodium (Protonix) 40 mg DAILYAC PO Last administered on 08/26/19at 08:35; Start 08/24/19 at 10:00; Stop 08/26/19 at 15:49; Status DC Acetaminophen/ Butalbital/ Caffeine (Fioricet) 1 tab PRN Q6HRS PRN PO MIGRAINE HEADACHE; Start 08/24/19 at 09:45 Gabapentin (Neurontin) 80 mg BID PO Last administered on 08/24/19at 19:53; Start 08/24/19 at 10:00; Stop 08/25/19 at 09:54; Status DC Ondansetron HCl (Zofran Odt) 4 mg PRN Q8HRS PRN PO NAUSEA/VOMITING Last administered on 08/24/19at 12:36; Start 08/24/19 at 09:45 Miscellaneous (Lidoderm Patch Removal) 1 ea QHS MC Last administered on 08/28/19at 20:51; Start 08/24/19 at 21:00 Levofloxacin/ Dextrose 100 ml @ 100 mls/hr Q24H IV ; Start 08/24/19 at 10:00; Status UNV Levofloxacin/ Dextrose 150 ml @ 100 mls/hr Q48H IV ; Start 08/25/19 at 21:00; Stop 08/24/19 at 12:56; Status DC Sodium Chloride (Normal Saline Flush) 3 ml QSHIFT PRN IV AFTER MEDS AND BLOOD DRAWS; Start 08/24/19 at 12:15 Sodium Chloride 1,000 ml @ 100 mls/hr Q10H IV Last administered on 08/30/19at 05:32; Start 08/24/19 at 20:00 Ondansetron HCl (Zofran) 4 mg PRN Q4HRS PRN IV NAUSEA/VOMITING; Start 08/24/19 at 12:15 Acetaminophen (Tylenol) 650 mg PRN Q4HRS PRN PO TEMP OVER 100.4F OR MILD PAIN Last administered on 08/24/19at 19:53; Start 08/24/19 at 12:15 Al Hydroxide/Mg Hydroxide (Mylanta Plus Xs) 30 ml PRN DAILY PRN PO HEARTBURN / GAS; Start 08/24/19 at 12:15 Clonidine HCl (Catapres) 0.1 mg PRN Q6HRS PRN PO SBP>160 OR DBP>90; Start 08/24/19 at 12:15 Docusate Sodium (Colace) 100 mg PRN BID PRN PO CONSTIPATION; Start 08/24/19 at 12:15 Albuterol/ Ipratropium (Duoneb) 3 ml Q4H NEB Last administered on 08/26/19at 04:40; Start 08/24/19 at 12:00; Stop 08/26/19 at 17:15; Status DC Guaifenesin (Robitussin) 200 mg PRN Q4HRS PRN PO COUGH; Start 08/24/19 at 12:15 Lorazepam (Ativan) 0.5 mg PRN Q4HRS PRN PO ANXIETY / AGITATION; Start 08/24/19 at 12:15 Enoxaparin Sodium (Lovenox 40mg Syringe) 40 mg Q24H SQ Last administered on 08/29/19at 16:03; Start 08/24/19 at 16:00 Sodium Chloride 1,000 ml @ 1,920 mls/hr Q32M IV Last administered on 08/24/19at 12:30; Start 08/24/19 at 12:30; Stop 08/24/19 at 13:30; Status DC Sodium Chloride 500 ml @ 1,000 mls/hr PRN Q30MIN PRN IV SEE COMMENTS; Start 08/24/19 at 12:30 Cefepime HCl (Maxipime) 2 gm Q12HR IVP Last administered on 08/30/19at 08:18; Start 08/24/19 at 14:00 Vasopressin 20 unit/Dextrose 101 ml @ 12 mls/hr CONT PRN IV SEE I/O RECORD; Start 08/24/19 at 12:30 Dobutamine HCl/ Dextrose 250 ml @ 0 mls/hr CONT PRN IV SEE I/O RECORD; Start 08/24/19 at 12:30 Azithromycin (Zithromax) 500 mg 1X ONCE PO Last administered on 08/24/19at 14:00; Start 08/24/19 at 13:00; Stop 08/24/19 at 13:23; Status DC Azithromycin (Zithromax) 250 mg DAILY PO Last administered on 08/26/19at 08:36; Start 08/25/19 at 09:00; Stop 08/26/19 at 09:57; Status DC Hydroxychloroquine Sulfate (Plaquenil) 400 mg BID PO Last administered on 08/24/19at 19:53; Start 08/24/19 at 14:00; Stop 08/24/19 at 21:01; Status DC Hydroxychloroquine Sulfate (Plaquenil) 200 mg BID PO Last administered on 08/28/19at 20:43; Start 08/25/19 at 09:00; Stop 08/28/19 at 21:01; Status DC Fentanyl Citrate 30 ml @ 0 mls/hr CONT PRN IV SEE PROTOCOL Last administered on 08/30/19at 05:34; Start 08/24/19 at 22:30 Propofol 100 ml @ 0 mls/hr CONT PRN IV SEE PROTOCOL Last administered on 08/24/19at 23:42; Start 08/24/19 at 22:30 Chlorhexidine Gluconate (Peridex) 15 ml BID MM ; Start 08/25/19 at 09:00; Stop 08/25/19 at 12:11; Status DC Propofol 100 ml @ As Directed STK-MED ONCE IV ; Start 08/24/19 at 22:26; Stop 08/24/19 at 22:27; Status DC Succinylcholine Chloride (Anectine) 200 mg 1X ONCE IV Last administered on 08/24/19at 23:41; Start 08/24/19 at 23:00; Stop 08/24/19 at 23:01; Status DC Midazolam HCl 50 mg/Sodium Chloride 50 ml @ 1 mls/hr CONT PRN IV SEE I/O RECORD Last administered on 08/25/19at 05:28; Start 08/25/19 at 00:00; Stop 08/25/19 at 15:11; Status DC Midazolam HCl 50 mg/Sodium Chloride 50 ml @ 1 mls/hr CONT PRN IV SEE I/O RECORD; Start 08/25/19 at 00:00; Status UNV Sodium Chloride 500 ml @ 500 mls/hr 1X ONCE IV Last administered on 08/25/19at 01:00; Start 08/25/19 at 02:00; Stop 08/25/19 at 02:59; Status DC Norepinephrine Bitartrate 8 mg/ Dextrose 258 ml @ 17.512 mls/ hr CONT PRN IV PER PROTOCOL Last administered on 08/25/19at 15:15; Start 08/25/19 at 02:00 Succinylcholine Chloride (Anectine) 200 mg STK-MED ONCE .ROUTE ; Start 08/25/19 at 03:33; Stop 08/25/19 at 03:34; Status DC Gabapentin (Neurontin) 800 mg BID PO Last administered on 08/30/19at 08:19; Start 08/25/19 at 09:00 Acetaminophen (Tylenol) 650 mg PRN Q6HRS PRN PEG MILD PAIN / TEMP Last administered on 08/25/19at 12:15; Start 08/25/19 at 12:15 Midazolam HCl 100 mg/Sodium Chloride 100 ml @ 5 mls/hr CONT PRN IV SEE I/O RECORD; Start 08/25/19 at 13:00; Stop 08/25/19 at 12:58; Status DC Midazolam HCl 100 mg/Sodium Chloride 100 ml @ 5 mls/hr CONT PRN IV SEE I/O RECORD Last administered on 08/30/19at 03:00; Start 08/25/19 at 16:00 Azithromycin 250 mg/Sodium Chloride 250 ml @ 250 mls/hr Q24H IV Last administered on 08/30/19at 08:18; Start 08/27/19 at 09:00 Lansoprazole (Prevacid) 30 mg DAILY FT Last administered on 08/27/19at 07:52; Start 08/27/19 at 09:00; Stop 08/28/19 at 09:38; Status DC Albuterol/ Ipratropium (Duoneb) 3 ml PRN Q4HRS PRN NEB SHORTNESS OF BREATH; Start 08/26/19 at 17:15; Stop 08/26/19 at 17:30; Status DC Insulin Human Lispro (HumaLOG) 0-5 UNITS TIDWMEALS SQ ; Start 08/27/19 at 17:00 Dextrose (Dextrose 50%-Water Syringe) 12.5 gm PRN Q15MIN PRN IV SEE COMMENTS; Start 08/27/19 at 14:30 Pantoprazole Sodium (PROTONIX VIAL for IV PUSH) 40 mg DAILYAC IVP Last administered on 08/30/19at 08:18; Start 08/28/19 at 11:00 Active Scripts Active Pyridium (Phenazopyridine Hcl) 200 Mg Tablet 1 Tab PO TID 3 Days Ciprofloxacin Hcl 500 Mg Tablet 1 Tab PO BID Lidocaine PATCH (Lidocaine) 1 Each Adh..patch 1 Patch TD DAILY Fiorinal 50-325-40 Mg Capsule (Butalbital/Aspirin/Caffeine) 1 Each Capsule 1 Each PO Q6HRS PRN Zofran (Ondansetron Hcl) 4 Mg Tablet 4 Mg PO PRN TID PRN nausea/vomiting Tylenol (Acetaminophen) 325 Mg Tablet 650 Mg PO PRN Q6HRS PRN 30 Days Pantoprazole Sodium (Pantoprazole Sodium) 40 Mg Tablet. 40 Mg PO DAILYAC 30 Days Reported Metoprolol Tartrate 25 Mg Tablet 25 Mg PO BID Dicyclomine Hcl 10 Mg Capsule 1 Cap PO BID PRN Imitrex (Sumatriptan Succinate) 100 Mg Tablet 1 Tab PO BID PRN Hydroxyzine Hcl 25 Mg Tablet 1 Tab PO DAILY PRN Diclofenac Sodium 75 Mg Tablet.dr 1 Tab PO BID Zolpidem Tartrate 10 Mg Tablet 10 Mg PO HS Lisinopril 10 Mg Tablet 1 Tab PO HS Gabapentin 800 Mg Tablet 1 Tab PO BID Cyclobenzaprine Hcl 10 Mg Tablet 1 Tab PO BID PRN Colestipol Hcl 1 Gm Tablet 1 Gm PO BID Tramadol Hcl 50 Mg Tablet 1 Tab PO BID Vitals/I & O Vital Sign - Last 24 Hours 08/29/19 08/29/19 08/29/19 08/29/19 14:00 15:00 16:00 16:00 Temp 98.8 98.8 Pulse 66 66 66 Resp 14 14 14 B/P (MAP) 137/66 (89) 140/71 (94) 142/68 (92) Pulse Ox 97 97 97 O2 Delivery Ventilator Ventilator Ventilator Mechanical Ventilator 08/29/19 08/29/19 08/29/19 08/29/19 16:23 17:00 18:00 18:01 Pulse 62 76 Resp 13 14 20 B/P (MAP) 134/67 (89) 118/54 (75) Pulse Ox 97 97 95 96 O2 Delivery Ventilator Ventilator Ventilator 08/29/19 08/29/19 08/29/19 08/29/19 18:32 19:00 20:00 20:00 Pulse 78 74 Resp 14 15 14 B/P (MAP) 132/58 (82) 133/56 (81) Pulse Ox 97 98 98 O2 Delivery Ventilator Ventilator Ventilator Mechanical Ventilator 08/29/19 08/29/19 08/29/19 08/29/19 20:44 21:00 22:00 23:00 Temp 99.3 99.3 Pulse 84 76 84 Resp 15 14 15 B/P (MAP) 146/67 (93) 147/65 (92) 125/52 (76) Pulse Ox 99 97 99 98 O2 Delivery Ventilator Ventilator Ventilator Ventilator 08/29/19 08/30/19 08/30/19 08/30/19 23:28 00:00 00:00 01:00 Temp 99.2 99.2 Pulse 78 88 Resp 14 15 B/P (MAP) 127/53 (77) 131/63 (85) Pulse Ox 99 99 97 O2 Delivery Ventilator Mechanical Ventilator Ventilator Ventilator 08/30/19 08/30/19 08/30/19 08/30/19 02:00 03:00 03:46 04:00 Pulse 78 78 Resp 15 14 B/P (MAP) 138/67 (90) 146/66 (92) Pulse Ox 98 98 97 O2 Delivery Ventilator Ventilator Ventilator Mechanical Ventilator O2 Flow Rate 40.0 40.0 08/30/19 08/30/19 08/30/19 08/30/19 04:00 05:00 05:30 06:00 Temp 99.7 99.7 Pulse 74 86 78 Resp 14 14 14 B/P (MAP) 139/66 (90) 127/61 (83) 119/54 (75) Pulse Ox 97 96 98 O2 Delivery Ventilator Ventilator Ventilator 08/30/19 08/30/19 08/30/19 08/30/19 07:00 07:45 08:00 08:00 Temp 99.0 99.0 Pulse 78 76 Resp 14 14 B/P (MAP) 108/48 (68) 111/52 (71) Pulse Ox 98 98 98 O2 Delivery Ventilator Ventilator Mechanical Ventilator Ventilator 08/30/19 08/30/19 08/30/19 08/30/19 08:19 09:00 09:19 10:00 Pulse 74 65 Resp 14 14 B/P (MAP) 132/63 (86) 119/56 (77) Pulse Ox 98 97 97 97 O2 Delivery Ventilator Ventilator Ventilator O2 Flow Rate 40.0 40.0 08/30/19 08/30/19 12:00 12:00 Pulse Ox 98 O2 Delivery Ventilator Mechanical Ventilator Intake and Output 08/29/19 08/29/19 08/30/19 15:00 23:00 07:00 Intake Total 1650 ml 300 ml 1356 ml Output Total 710 ml 900 ml 535 ml Balance 940 ml -600 ml 821 ml KARLOS ALANIZ MD Aug 30, 2019 14:02
[2019-08-30] MEDS: ENOXAPARIN 40 MG/0.4 ML SYRINGE. SQ SCH (16:00)
[2019-08-30] MEDS: PATCH REMOVAL. MC SCH (21:00)
[2019-08-31] VITALS (24 sets, daily range): BP systolic 105–157; BP diastolic 45–77
[2019-08-31] MEDS ORDERED: fentaNYL STANDARD PCA 600 MCG/30 ML PCA.SYRING IV ONE (05:08)
[2019-08-31 06:13] LABS: BASO # 0.1 x10^3/uL (0.0-0.2); BASO % 1 % (0-3); EOS # 0.1 x10^3/uL (0.0-0.7); EOS % 1 % (0-3); HEMATOCRIT 33.2 % (36.0-47.0); HEMOGLOBIN 11.1 g/dL (12.0-15.5); LYMPH # 0.7 x10^3/uL (1.0-4.8); LYMPH % 8 % (24-48); MEAN CORPUSCULAR HEMOGLOBIN 28 pg (25-35); MEAN CORPUSCULAR HGB CONC 34 g/dL (31-37); MEAN CORPUSCULAR VOLUME 84 fL (79-100); MONO # 1.1 x10^3/uL (0.0-1.1); MONO % 11 % (0-9); NEUT # 7.8 x10^3/uL (1.8-7.7); NEUT % 80 % (31-73); PLATELET COUNT 514 x10^3/uL (140-400); RED BLOOD COUNT 3.97 x10^6/uL (3.50-5.40); RED CELL DISTRIBUTION WIDTH 12.6 % (11.5-14.5); WHITE BLOOD COUNT 9.7 x10^3/uL (4.0-11.0)
--- NOTE | 2019-08-31 07:45 | PDOC ---
PULMONARY PROGRESS NOTES Subjective Patient remains hemodynamically stable Patient currently sedated, assist control ventilation. 45% FiO2, 450 tidal volume , 6 PEEP Currently off pressors Vitals Vital Signs Date Time Temp Pulse Resp B/P (MAP) Pulse Ox O2 Delivery O2 Flow Rate FiO2 08/31/19 06:00 92 16 109/51 (70) 99 Ventilator 08/31/19 05:08 40.0 08/31/19 04:00 99.2 99.2 Comments Visual exam done no respiratory distress, sedated, on vent no JVD, no leg edema, no rash Labs Laboratory Tests Test 08/29/19 09:04 08/29/19 09:15 08/29/19 11:45 08/29/19 17:16 Glucose (Fingerstick) 85 mg/dL (70-99) 102 mg/dL (70-99) 99 mg/dL (70-99) O2 Saturation 98 % (92-99) Arterial Blood pH 7.38 (7.35-7.45) Arterial Blood pCO2 at Patient Temp 44 mmHg (35-46) Arterial Blood pO2 at Patient Temp 126 mmHg (65-108) Arterial Blood HCO3 26 mmol/L (21-28) Arterial Blood Base Excess 0 mmol/L (-3-3) FiO2 50 Test 08/30/19 00:37 08/30/19 05:58 08/30/19 08:00 08/30/19 12:12 Glucose (Fingerstick) 92 mg/dL (70-99) 87 mg/dL (70-99) White Blood Count 7.3 x10^3/uL (4.0-11.0) Red Blood Count 3.82 x10^6/uL (3.50-5.40) Hemoglobin 10.8 g/dL (12.0-15.5) Hematocrit 32.0 % (36.0-47.0) Mean Corpuscular Volume 84 fL (79-100) Mean Corpuscular Hemoglobin 28 pg (25-35) Mean Corpuscular Hemoglobin Concent 34 g/dL (31-37) Red Cell Distribution Width 12.7 % (11.5-14.5) Platelet Count 427 x10^3/uL (140-400) Neutrophils (%) (Auto) 74 % (31-73) Lymphocytes (%) (Auto) 8 % (24-48) Monocytes (%) (Auto) 15 % (0-9) Eosinophils (%) (Auto) 2 % (0-3) Basophils (%) (Auto) 1 % (0-3) Neutrophils # (Auto) 5.4 x10^3/uL (1.8-7.7) Lymphocytes # (Auto) 0.6 x10^3/uL (1.0-4.8) Monocytes # (Auto) 1.1 x10^3/uL (0.0-1.1) Eosinophils # (Auto) 0.2 x10^3/uL (0.0-0.7) Basophils # (Auto) 0.0 x10^3/uL (0.0-0.2) O2 Saturation 98 % (92-99) Arterial Blood pH 7.40 (7.35-7.45) Arterial Blood pCO2 at Patient Temp 42 mmHg (35-46) Arterial Blood pO2 at Patient Temp 103 mmHg (65-108) Arterial Blood HCO3 25 mmol/L (21-28) Arterial Blood Base Excess 1 mmol/L (-3-3) FiO2 45 +7 Test 08/30/19 18:06 08/30/19 23:08 08/31/19 05:30 08/31/19 06:48 Glucose (Fingerstick) 85 mg/dL (70-99) 98 mg/dL (70-99) 97 mg/dL (70-99) White Blood Count 9.7 x10^3/uL (4.0-11.0) Red Blood Count 3.97 x10^6/uL (3.50-5.40) Hemoglobin 11.1 g/dL (12.0-15.5) Hematocrit 33.2 % (36.0-47.0) Mean Corpuscular Volume 84 fL (79-100) Mean Corpuscular Hemoglobin 28 pg (25-35) Mean Corpuscular Hemoglobin Concent 34 g/dL (31-37) Red Cell Distribution Width 12.6 % (11.5-14.5) Platelet Count 514 x10^3/uL (140-400) Neutrophils (%) (Auto) 80 % (31-73) Lymphocytes (%) (Auto) 8 % (24-48) Monocytes (%) (Auto) 11 % (0-9) Eosinophils (%) (Auto) 1 % (0-3) Basophils (%) (Auto) 1 % (0-3) Neutrophils # (Auto) 7.8 x10^3/uL (1.8-7.7) Lymphocytes # (Auto) 0.7 x10^3/uL (1.0-4.8) Monocytes # (Auto) 1.1 x10^3/uL (0.0-1.1) Eosinophils # (Auto) 0.1 x10^3/uL (0.0-0.7) Basophils # (Auto) 0.1 x10^3/uL (0.0-0.2) Laboratory Tests Test 08/30/19 08:00 08/30/19 12:12 08/30/19 18:06 08/30/19 23:08 O2 Saturation 98 % (92-99) Arterial Blood pH 7.40 (7.35-7.45) Arterial Blood pCO2 at Patient Temp 42 mmHg (35-46) Arterial Blood pO2 at Patient Temp 103 mmHg (65-108) Arterial Blood HCO3 25 mmol/L (21-28) Arterial Blood Base Excess 1 mmol/L (-3-3) FiO2 45 +7 Glucose (Fingerstick) 87 mg/dL (70-99) 85 mg/dL (70-99) 98 mg/dL (70-99) Test 08/31/19 05:30 08/31/19 06:48 White Blood Count 9.7 x10^3/uL (4.0-11.0) Red Blood Count 3.97 x10^6/uL (3.50-5.40) Hemoglobin 11.1 g/dL (12.0-15.5) Hematocrit 33.2 % (36.0-47.0) Mean Corpuscular Volume 84 fL (79-100) Mean Corpuscular Hemoglobin 28 pg (25-35) Mean Corpuscular Hemoglobin Concent 34 g/dL (31-37) Red Cell Distribution Width 12.6 % (11.5-14.5) Platelet Count 514 x10^3/uL (140-400) Neutrophils (%) (Auto) 80 % (31-73) Lymphocytes (%) (Auto) 8 % (24-48) Monocytes (%) (Auto) 11 % (0-9) Eosinophils (%) (Auto) 1 % (0-3) Basophils (%) (Auto) 1 % (0-3) Neutrophils # (Auto) 7.8 x10^3/uL (1.8-7.7) Lymphocytes # (Auto) 0.7 x10^3/uL (1.0-4.8) Monocytes # (Auto) 1.1 x10^3/uL (0.0-1.1) Eosinophils # (Auto) 0.1 x10^3/uL (0.0-0.7) Basophils # (Auto) 0.1 x10^3/uL (0.0-0.2) Glucose (Fingerstick) 97 mg/dL (70-99) Medications Active Scripts Medications Dose Route/Sig Max Daily Dose Days Date Category Dose Instructions Pyridium (Phenazopyridine Hcl) 200 Mg Tablet 1 Tab PO TID 3 04/16/19 Rx Ciprofloxacin Hcl 500 Mg Tablet 1 Tab PO BID 04/16/19 Rx Lidocaine PATCH (Lidocaine) 1 Each Adh..patch 1 Patch TD DAILY 04/16/19 Rx Metoprolol Tartrate 25 Mg Tablet 25 Mg PO BID 04/15/19 Reported Fiorinal 50-325-40 Mg Capsule (Butalbital/Aspirin/Caffeine) 1 Each Capsule 1 Each PO Q6HRS PRN 03/27/19 Rx Zofran (Ondansetron Hcl) 4 Mg Tablet 4 Mg PO PRN TID PRN 03/27/19 Rx nausea/vomiting Tylenol (Acetaminophen) 325 Mg Tablet 650 Mg PO PRN Q6HRS PRN 30 03/06/19 Rx Pantoprazole Sodium (Pantoprazole Sodium) 40 Mg Tablet.dr 40 Mg PO DAILYAC 30 03/06/19 Rx Dicyclomine Hcl 10 Mg Capsule 1 Cap PO BID PRN 11/27/18 Reported Imitrex (Sumatriptan Succinate) 100 Mg Tablet 1 Tab PO BID PRN 11/27/18 Reported Hydroxyzine Hcl 25 Mg Tablet 1 Tab PO DAILY PRN 11/27/18 Reported Diclofenac Sodium 75 Mg Tablet.dr 1 Tab PO BID 11/27/18 Reported Zolpidem Tartrate 10 Mg Tablet 10 Mg PO HS 11/27/18 Reported Lisinopril 10 Mg Tablet 1 Tab PO HS 06/14/18 Reported Gabapentin 800 Mg Tablet 1 Tab PO BID 1/19/15 Reported Cyclobenzaprine Hcl 10 Mg Tablet 1 Tab PO BID PRN 06/17/14 Reported Colestipol Hcl 1 Gm Tablet 1 Gm PO BID 06/17/14 Reported Tramadol Hcl 50 Mg Tablet 1 Tab PO BID 06/17/14 Reported Comments CXR 08/30 reviewed bilateral patchy infiltrates, mild progression Impression . 1. Acute Respiratory failure due to COVID19 Pneumonia/ ARDS 2. Pneumonia, mycoplasma positive/ in addition to COVID-19 pneumonia 3. Acute respiratory failure multifactorial/ARDS 4. COVID-19 positive test (U07.1, COVID-19) with Acute Respiratory Distress Syndrome (ARDS) (J80, ARDS) (If respiratory failure or sepsis present, add as separate assessment) 5. Protein malnutrition present upon admission, severe Chest x-ray reviewed Plan . 6AC mode FIO45%, 7 PEEP, reviewed ABG, wean Fio2 if possible and PEEP Continue Zithromax, Plaquenil. dc zithromax at day 5 Oxygenation stable . will start weaning sedation and assess for CPAP trial Labs reviewed Pro calcitonin noted TF/ tolerating Continue current support follow labs, ABG, chest x-ray. d/w RN/RT Cumulative critical care time of 30 minutes, reviewing data, labs, chest x-ray, making adjustments on mechanical ventilation, AMADOU SANTOS MD Aug 31, 2019 07:45
[2019-08-31] MEDS: INSULIN LISPRO 300 UNITS/3 ML VIAL. SQ SCH ×3 (08:00→16:55)
[2019-08-31 08:41] LABS: CALCIUM 8.5 mg/dL (8.5-10.1); CREATININE 0.4 mg/dL (0.6-1.0); GFR 160.2; MAGNESIUM 1.8 mg/dL (1.8-2.4); PHOSPHORUS 3.4 mg/dL (2.6-4.7)
[2019-08-31] MEDS: traMADol 50 MG TABLET PO SCH ×2 (08:56→21:19)
[2019-08-31] MEDS: CEFEPIME HCL IV Push 2 GM VIAL. IVP SCH ×2 (08:56→21:18)
[2019-08-31] MEDS: GABAPENTIN 400 MG CAPSULE. PO SCH ×2 (08:56→21:18)
[2019-08-31] MEDS: PANTOPRAZOLE IV PUSH 40 MG VIAL. IVP SCH (08:56)
[2019-08-31] MEDS: COLESTIPOL HCL 1 GM TABLET PO SCH ×2 (08:57→21:18)
[2019-08-31] MEDS: LIDOCAINE (700MG/PATCH) PATCH. TD SCH (08:59)
[2019-08-31 09:24] LABS: BASE EXCESS ABG 4 mmol/L (-3-3); HCO3 ABG 29 mmol/L (21-28); PCO2 ABG 47 mmHg (35-46); PO2 ABG 105 mmHg (65-108); SAT O2 ABG 98 % (92-99)
[2019-08-31 10:01] LABS: FIO2 ABG 100
[2019-08-31] MEDS: IV NORMAL SALINE 1000ML BAG 1,000 ML IV SCH (10:26)
--- NOTE | 2019-08-31 11:54 | RAD ---
CHEST AP ONLY INDICATION: Respiratory failure. COMPARISON STUDY: 08/29/2019. FINDINGS: Life Support Devices: Stable endotracheal tube, enteric tube, right PICC. Lungs: Normal lung volume. Progression of bilateral perihilar and basilar heterogeneous opacities. Indistinct pulmonary vasculature. Pleura: No pleural effusion or pneumothorax. Heart and Mediastinum: Stable cardiomediastinal silhouette and great vessels. IMPRESSION: 1. Progression of bilateral perihilar and basilar heterogeneous opacities. 2. Life support devices are stable. Electronically signed by: James oMrgan MD (08/31/2019 11:51 AM) [id number]
[2019-08-31] MEDS: ENOXAPARIN 40 MG/0.4 ML SYRINGE. SQ SCH (15:52)
--- NOTE | 2019-08-31 16:10 | PDOC ---
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 GERD Acute kidney injury Asthma history of essential Hypertension Dehydration Severe malnutrition Plan: Continue Zithromax and Plaquenil Continue supportive measures and ventilatory support further recommendations based on clinical course. leasing consultant considering a weaning trial COVID-19 CRITERIA: The patient was evaluated during the global COVID-19 pandemic, and that diagnosis was suspected/considered upon their initial presentation. Their evaluation, treatment and testing was consistent with current guidelines for patients who present with complaints or symptoms that may be related to COVID-19. History of Present Illness History of Present Illness 08/30/2019 Continue to be on AC mode with fio2 at 40% and 6 of peep, no acute events overnight, still requiring a lot of support, remains critically stable. 08/29/2019 Patient remains critically stable, oxygen requirements at 50% discussed with nursing staff at bedside [id number] Patient seen and examined in the ICU She remains mechanically ventilated Assist-control/12/400/50% with 8 of PEEP Sedated with Versed and fentanyl OG feeds running She is Covid 19 positive [id number] Patient seen and examined in the ICU She is extremely critically ill Covid testing is positive Reviewed chest x-ray and CAT scan Discussed with RN Reviewed chart She is on assist-control 18/400/50% Sedated with Versed and fentanyl Also has a maintenance IV [id number] Patient is mechanically ventilated assist-control/18/400/50% Her Covid 19 testing now is positive Chart reviewed Discussed with RN [id number] Patient seen and examined Discussed with RN I called the pharmacy to start some azithromycin because she is now mycoplasma positive Mechanically ventilated Before meals/18/450/50% Chart reviewed Prognosis guarded Vitals Vitals Vital Signs Date Time Temp Pulse Resp B/P (MAP) Pulse Ox O2 Delivery O2 Flow Rate FiO2 08/31/19 15:50 97 Ventilator 08/31/19 14:00 73 14 145/66 (92) 08/31/19 08:00 99.0 99.0 08/31/19 05:08 40.0 Physical Exam Physical Exam She is sedated with Versed and fentanyl General: No acute distress, Other (sedated on the vent) Heart: Regular rate (sedated and intubated), Normal S1 Abdomen: Soft Extremities: No cyanosis Skin: No rashes, No breakdown Labs LABS Laboratory Tests Test 08/30/19 18:06 08/30/19 23:08 08/31/19 05:30 08/31/19 06:48 Glucose (Fingerstick) 85 mg/dL (70-99) 98 mg/dL (70-99) 97 mg/dL (70-99) White Blood Count 9.7 x10^3/uL (4.0-11.0) Red Blood Count 3.97 x10^6/uL (3.50-5.40) Hemoglobin 11.1 g/dL (12.0-15.5) Hematocrit 33.2 % (36.0-47.0) Mean Corpuscular Volume 84 fL (79-100) Mean Corpuscular Hemoglobin 28 pg (25-35) Mean Corpuscular Hemoglobin Concent 34 g/dL (31-37) Red Cell Distribution Width 12.6 % (11.5-14.5) Platelet Count 514 x10^3/uL (140-400) Neutrophils (%) (Auto) 80 % (31-73) Lymphocytes (%) (Auto) 8 % (24-48) Monocytes (%) (Auto) 11 % (0-9) Eosinophils (%) (Auto) 1 % (0-3) Basophils (%) (Auto) 1 % (0-3) Neutrophils # (Auto) 7.8 x10^3/uL (1.8-7.7) Lymphocytes # (Auto) 0.7 x10^3/uL (1.0-4.8) Monocytes # (Auto) 1.1 x10^3/uL (0.0-1.1) Eosinophils # (Auto) 0.1 x10^3/uL (0.0-0.7) Basophils # (Auto) 0.1 x10^3/uL (0.0-0.2) Sodium Level 135 mmol/L (136-145) Potassium Level 4.0 mmol/L (3.5-5.1) Chloride Level 101 mmol/L (98-107) Carbon Dioxide Level 29 mmol/L (21-32) Anion Gap 5 (6-14) Blood Urea Nitrogen 10 mg/dL (7-20) Creatinine 0.4 mg/dL (0.6-1.0) Estimated GFR (Cockcroft-Gault) 160.2 Glucose Level 106 mg/dL (70-99) Calcium Level 8.5 mg/dL (8.5-10.1) Phosphorus Level 3.4 mg/dL (2.6-4.7) Magnesium Level 1.8 mg/dL (1.8-2.4) Test 08/31/19 09:09 08/31/19 09:25 08/31/19 12:16 Glucose (Fingerstick) 108 mg/dL (70-99) 96 mg/dL (70-99) O2 Saturation 98 % (92-99) Arterial Blood pH 7.42 (7.35-7.45) Arterial Blood pCO2 at Patient Temp 47 mmHg (35-46) Arterial Blood pO2 at Patient Temp 105 mmHg (65-108) Arterial Blood HCO3 29 mmol/L (21-28) Arterial Blood Base Excess 4 mmol/L (-3-3) FiO2 100 Assessment and Plan Assessmemt and Plan Problems Medical Problems: (1) Hypotension Status: Acute (2) Hypoxia Status: Acute (3) Right-sided chest pain Status: Acute (4) Suspected 2019-nCoV infection Status: Acute Comment Review of Relevant I have reviewed the following items tori (where applicable) has been applied. Labs Laboratory Tests Test 08/29/19 17:16 08/30/19 00:37 08/30/19 05:58 08/30/19 08:00 Glucose (Fingerstick) 99 mg/dL (70-99) 92 mg/dL (70-99) White Blood Count 7.3 x10^3/uL (4.0-11.0) Red Blood Count 3.82 x10^6/uL (3.50-5.40) Hemoglobin 10.8 g/dL (12.0-15.5) Hematocrit 32.0 % (36.0-47.0) Mean Corpuscular Volume 84 fL (79-100) Mean Corpuscular Hemoglobin 28 pg (25-35) Mean Corpuscular Hemoglobin Concent 34 g/dL (31-37) Red Cell Distribution Width 12.7 % (11.5-14.5) Platelet Count 427 x10^3/uL (140-400) Neutrophils (%) (Auto) 74 % (31-73) Lymphocytes (%) (Auto) 8 % (24-48) Monocytes (%) (Auto) 15 % (0-9) Eosinophils (%) (Auto) 2 % (0-3) Basophils (%) (Auto) 1 % (0-3) Neutrophils # (Auto) 5.4 x10^3/uL (1.8-7.7) Lymphocytes # (Auto) 0.6 x10^3/uL (1.0-4.8) Monocytes # (Auto) 1.1 x10^3/uL (0.0-1.1) Eosinophils # (Auto) 0.2 x10^3/uL (0.0-0.7) Basophils # (Auto) 0.0 x10^3/uL (0.0-0.2) O2 Saturation 98 % (92-99) Arterial Blood pH 7.40 (7.35-7.45) Arterial Blood pCO2 at Patient Temp 42 mmHg (35-46) Arterial Blood pO2 at Patient Temp 103 mmHg (65-108) Arterial Blood HCO3 25 mmol/L (21-28) Arterial Blood Base Excess 1 mmol/L (-3-3) FiO2 45 +7 Test 08/30/19 12:12 08/30/19 18:06 08/30/19 23:08 08/31/19 05:30 Glucose (Fingerstick) 87 mg/dL (70-99) 85 mg/dL (70-99) 98 mg/dL (70-99) White Blood Count 9.7 x10^3/uL (4.0-11.0) Red Blood Count 3.97 x10^6/uL (3.50-5.40) Hemoglobin 11.1 g/dL (12.0-15.5) Hematocrit 33.2 % (36.0-47.0) Mean Corpuscular Volume 84 fL (79-100) Mean Corpuscular Hemoglobin 28 pg (25-35) Mean Corpuscular Hemoglobin Concent 34 g/dL (31-37) Red Cell Distribution Width 12.6 % (11.5-14.5) Platelet Count 514 x10^3/uL (140-400) Neutrophils (%) (Auto) 80 % (31-73) Lymphocytes (%) (Auto) 8 % (24-48) Monocytes (%) (Auto) 11 % (0-9) Eosinophils (%) (Auto) 1 % (0-3) Basophils (%) (Auto) 1 % (0-3) Neutrophils # (Auto) 7.8 x10^3/uL (1.8-7.7) Lymphocytes # (Auto) 0.7 x10^3/uL (1.0-4.8) Monocytes # (Auto) 1.1 x10^3/uL (0.0-1.1) Eosinophils # (Auto) 0.1 x10^3/uL (0.0-0.7) Basophils # (Auto) 0.1 x10^3/uL (0.0-0.2) Sodium Level 135 mmol/L (136-145) Potassium Level 4.0 mmol/L (3.5-5.1) Chloride Level 101 mmol/L (98-107) Carbon Dioxide Level 29 mmol/L (21-32) Anion Gap 5 (6-14) Blood Urea Nitrogen 10 mg/dL (7-20) Creatinine 0.4 mg/dL (0.6-1.0) Estimated GFR (Cockcroft-Gault) 160.2 Glucose Level 106 mg/dL (70-99) Calcium Level 8.5 mg/dL (8.5-10.1) Phosphorus Level 3.4 mg/dL (2.6-4.7) Magnesium Level 1.8 mg/dL (1.8-2.4) Test 08/31/19 06:48 08/31/19 09:09 08/31/19 09:25 08/31/19 12:16 Glucose (Fingerstick) 97 mg/dL (70-99) 108 mg/dL (70-99) 96 mg/dL (70-99) O2 Saturation 98 % (92-99) Arterial Blood pH 7.42 (7.35-7.45) Arterial Blood pCO2 at Patient Temp 47 mmHg (35-46) Arterial Blood pO2 at Patient Temp 105 mmHg (65-108) Arterial Blood HCO3 29 mmol/L (21-28) Arterial Blood Base Excess 4 mmol/L (-3-3) FiO2 100 Laboratory Tests Test 08/30/19 18:06 08/30/19 23:08 08/31/19 05:30 08/31/19 06:48 Glucose (Fingerstick) 85 mg/dL (70-99) 98 mg/dL (70-99) 97 mg/dL (70-99) White Blood Count 9.7 x10^3/uL (4.0-11.0) Red Blood Count 3.97 x10^6/uL (3.50-5.40) Hemoglobin 11.1 g/dL (12.0-15.5) Hematocrit 33.2 % (36.0-47.0) Mean Corpuscular Volume 84 fL (79-100) Mean Corpuscular Hemoglobin 28 pg (25-35) Mean Corpuscular Hemoglobin Concent 34 g/dL (31-37) Red Cell Distribution Width 12.6 % (11.5-14.5) Platelet Count 514 x10^3/uL (140-400) Neutrophils (%) (Auto) 80 % (31-73) Lymphocytes (%) (Auto) 8 % (24-48) Monocytes (%) (Auto) 11 % (0-9) Eosinophils (%) (Auto) 1 % (0-3) Basophils (%) (Auto) 1 % (0-3) Neutrophils # (Auto) 7.8 x10^3/uL (1.8-7.7) Lymphocytes # (Auto) 0.7 x10^3/uL (1.0-4.8) Monocytes # (Auto) 1.1 x10^3/uL (0.0-1.1) Eosinophils # (Auto) 0.1 x10^3/uL (0.0-0.7) Basophils # (Auto) 0.1 x10^3/uL (0.0-0.2) Sodium Level 135 mmol/L (136-145) Potassium Level 4.0 mmol/L (3.5-5.1) Chloride Level 101 mmol/L (98-107) Carbon Dioxide Level 29 mmol/L (21-32) Anion Gap 5 (6-14) Blood Urea Nitrogen 10 mg/dL (7-20) Creatinine 0.4 mg/dL (0.6-1.0) Estimated GFR (Cockcroft-Gault) 160.2 Glucose Level 106 mg/dL (70-99) Calcium Level 8.5 mg/dL (8.5-10.1) Phosphorus Level 3.4 mg/dL (2.6-4.7) Magnesium Level 1.8 mg/dL (1.8-2.4) Test 08/31/19 09:09 08/31/19 09:25 08/31/19 12:16 Glucose (Fingerstick) 108 mg/dL (70-99) 96 mg/dL (70-99) O2 Saturation 98 % (92-99) Arterial Blood pH 7.42 (7.35-7.45) Arterial Blood pCO2 at Patient Temp 47 mmHg (35-46) Arterial Blood pO2 at Patient Temp 105 mmHg (65-108) Arterial Blood HCO3 29 mmol/L (21-28) Arterial Blood Base Excess 4 mmol/L (-3-3) FiO2 100 Microbiology 08/24/19 Urine Culture - Final, Complete 08/24/19 Urine Culture Result 1 (REUBEN) - Final, Complete 08/23/19 Blood Culture - Final, Complete NO GROWTH AFTER 5 DAYS Medications Current Medications Sodium Chloride 1,000 ml @ 1,000 mls/hr Q1H IV Last administered on 08/23/19at 17:20; Start 08/23/19 at 17:11; Stop 08/23/19 at 18:10; Status DC Ondansetron HCl (Zofran) 4 mg PRN Q8HRS PRN IV NAUSEA/VOMITING Last administered on 08/23/19at 21:54; Start 08/23/19 at 20:00; Stop 08/24/19 at 12:42; Status DC Morphine Sulfate (Morphine Sulfate) 2 mg PRN Q2HR PRN IV PAIN; Start 08/23/19 at 20:00; Stop 08/24/19 at 19:59; Status DC Sodium Chloride 1,000 ml @ 75 mls/hr [id number] IV Last administered on 08/24/19at 09:11; Start 08/23/19 at 19:51; Stop 08/24/19 at 19:50; Status DC Acetaminophen (Tylenol) 650 mg PRN Q4HRS PRN PO FEVER Last administered on 08/23/19at 21:55; Start 08/23/19 at 20:00; Stop 08/24/19 at 11:41; Status DC Sodium Chloride 1,000 ml @ 0 mls/hr 1X ONCE IV ; Start 08/23/19 at 20:15; Stop 08/23/19 at 20:21; Status DC Sodium Chloride 1,000 ml @ 1,000 mls/hr 1X ONCE IV Last administered on 08/23/19at 20:30; Start 08/23/19 at 20:30; Stop 08/23/19 at 21:29; Status DC Levofloxacin/ Dextrose 150 ml @ 100 mls/hr 1X ONCE IV Last administered on 08/23/19at 22:37; Start 08/23/19 at 22:30; Stop 08/23/19 at 23:59; Status DC Tramadol HCl (Ultram) 50 mg BID PO Last administered on 08/31/19at 08:56; Start 08/24/19 at 09:00 Zolpidem Tartrate (Ambien) 5 mg PRN QHS PRN PO INSOMNIA, MAY REPEAT X1; Start 08/24/19 at 00:45 Acetaminophen (Tylenol) 650 mg PRN Q6HRS PRN PO FEVER; Start 08/24/19 at 09:45; Stop 08/24/19 at 12:40; Status DC Colestipol HCl (Colestid) 1 gm BID@1000,2200 PO Last administered on 08/31/19at 08:57; Start 08/24/19 at 10:00 Hydroxyzine HCl (Atarax) 25 mg DAILY PRN PO ITCHING; Start 08/24/19 at 09:45 Lidocaine (Lidoderm) 1 patch DAILY TD Last administered on 08/31/19at 08:59; Start 08/24/19 at 10:00 Pantoprazole Sodium (Protonix) 40 mg DAILYAC PO Last administered on 08/26/19at 08:35; Start 08/24/19 at 10:00; Stop 08/26/19 at 15:49; Status DC Acetaminophen/ Butalbital/ Caffeine (Fioricet) 1 tab PRN Q6HRS PRN PO MIGRAINE HEADACHE; Start 08/24/19 at 09:45 Gabapentin (Neurontin) 80 mg BID PO Last administered on 08/24/19at 19:53; Start 08/24/19 at 10:00; Stop 08/25/19 at 09:54; Status DC Ondansetron HCl (Zofran Odt) 4 mg PRN Q8HRS PRN PO NAUSEA/VOMITING Last administered on 08/24/19at 12:36; Start 08/24/19 at 09:45 Miscellaneous (Lidoderm Patch Removal) 1 ea QHS MC Last administered on 08/28/19at 20:51; Start 08/24/19 at 21:00 Levofloxacin/ Dextrose 100 ml @ 100 mls/hr Q24H IV ; Start 08/24/19 at 10:00; Status UNV Levofloxacin/ Dextrose 150 ml @ 100 mls/hr Q48H IV ; Start 08/25/19 at 21:00; Stop 08/24/19 at 12:56; Status DC Sodium Chloride (Normal Saline Flush) 3 ml QSHIFT PRN IV AFTER MEDS AND BLOOD DRAWS; Start 08/24/19 at 12:15 Sodium Chloride 1,000 ml @ 100 mls/hr Q10H IV Last administered on 08/31/19at 10:26; Start 08/24/19 at 20:00 Ondansetron HCl (Zofran) 4 mg PRN Q4HRS PRN IV NAUSEA/VOMITING; Start 08/24/19 at 12:15 Acetaminophen (Tylenol) 650 mg PRN Q4HRS PRN PO TEMP OVER 100.4F OR MILD PAIN Last administered on 08/24/19at 19:53; Start 08/24/19 at 12:15 Al Hydroxide/Mg Hydroxide (Mylanta Plus Xs) 30 ml PRN DAILY PRN PO HEARTBURN / GAS; Start 08/24/19 at 12:15 Clonidine HCl (Catapres) 0.1 mg PRN Q6HRS PRN PO SBP>160 OR DBP>90; Start 08/24/19 at 12:15 Docusate Sodium (Colace) 100 mg PRN BID PRN PO CONSTIPATION; Start 08/24/19 at 12:15 Albuterol/ Ipratropium (Duoneb) 3 ml Q4H NEB Last administered on 08/26/19at 04:40; Start 08/24/19 at 12:00; Stop 08/26/19 at 17:15; Status DC Guaifenesin (Robitussin) 200 mg PRN Q4HRS PRN PO COUGH; Start 08/24/19 at 12:15 Lorazepam (Ativan) 0.5 mg PRN Q4HRS PRN PO ANXIETY / AGITATION; Start 08/24/19 at 12:15 Enoxaparin Sodium (Lovenox 40mg Syringe) 40 mg Q24H SQ Last administered on 08/31/19at 15:52; Start 08/24/19 at 16:00 Sodium Chloride 1,000 ml @ 1,920 mls/hr Q32M IV Last administered on 08/24/19at 12:30; Start 08/24/19 at 12:30; Stop 08/24/19 at 13:30; Status DC Sodium Chloride 500 ml @ 1,000 mls/hr PRN Q30MIN PRN IV SEE COMMENTS; Start 08/24/19 at 12:30 Cefepime HCl (Maxipime) 2 gm Q12HR IVP Last administered on 08/31/19at 08:56; Start 08/24/19 at 14:00 Vasopressin 20 unit/Dextrose 101 ml @ 12 mls/hr CONT PRN IV SEE I/O RECORD; Start 08/24/19 at 12:30 Dobutamine HCl/ Dextrose 250 ml @ 0 mls/hr CONT PRN IV SEE I/O RECORD; Start 08/24/19 at 12:30 Azithromycin (Zithromax) 500 mg 1X ONCE PO Last administered on 08/24/19at 14:00; Start 08/24/19 at 13:00; Stop 08/24/19 at 13:23; Status DC Azithromycin (Zithromax) 250 mg DAILY PO Last administered on 08/26/19at 08:36; Start 08/25/19 at 09:00; Stop 08/26/19 at 09:57; Status DC Hydroxychloroquine Sulfate (Plaquenil) 400 mg BID PO Last administered on 08/24/19at 19:53; Start 08/24/19 at 14:00; Stop 08/24/19 at 21:01; Status DC Hydroxychloroquine Sulfate (Plaquenil) 200 mg BID PO Last administered on 08/28/19at 20:43; Start 08/25/19 at 09:00; Stop 08/28/19 at 21:01; Status DC Fentanyl Citrate 30 ml @ 0 mls/hr CONT PRN IV SEE PROTOCOL Last administered on 08/31/19at 05:08; Start 08/24/19 at 22:30 Propofol 100 ml @ 0 mls/hr CONT PRN IV SEE PROTOCOL Last administered on 0at 23:42; Start 08/24/19 at 22:30 Chlorhexidine Gluconate (Peridex) 15 ml BID MM ; Start 08/25/19 at 09:00; Stop 08/25/19 at 12:11; Status DC Propofol 100 ml @ As Directed STK-MED ONCE IV ; Start 08/24/19 at 22:26; Stop 08/24/19 at 22:27; Status DC Succinylcholine Chloride (Anectine) 200 mg 1X ONCE IV Last administered on 08/24/19at 23:41; Start 08/24/19 at 23:00; Stop 08/24/19 at 23:01; Status DC Midazolam HCl 50 mg/Sodium Chloride 50 ml @ 1 mls/hr CONT PRN IV SEE I/O RECORD Last administered on 08/25/19at 05:28; Start 08/25/19 at 00:00; Stop 08/25/19 at 15:11; Status DC Midazolam HCl 50 mg/Sodium Chloride 50 ml @ 1 mls/hr CONT PRN IV SEE I/O RECORD; Start 08/25/19 at 00:00; Status UNV Sodium Chloride 500 ml @ 500 mls/hr 1X ONCE IV Last administered on 08/25/19at 01:00; Start 08/25/19 at 02:00; Stop 08/25/19 at 02:59; Status DC Norepinephrine Bitartrate 8 mg/ Dextrose 258 ml @ 17.512 mls/ hr CONT PRN IV PER PROTOCOL Last administered on 08/25/19at 15:15; Start 08/25/19 at 02:00 Succinylcholine Chloride (Anectine) 200 mg STK-MED ONCE .ROUTE ; Start 08/25/19 at 03:33; Stop 08/25/19 at 03:34; Status DC Gabapentin (Neurontin) 800 mg BID PO Last administered on 08/31/19at 08:56; Start 08/25/19 at 09:00 Acetaminophen (Tylenol) 650 mg PRN Q6HRS PRN PEG MILD PAIN / TEMP Last administered on 08/25/19at 12:15; Start 08/25/19 at 12:15 Midazolam HCl 100 mg/Sodium Chloride 100 ml @ 5 mls/hr CONT PRN IV SEE I/O RECORD; Start 08/25/19 at 13:00; Stop 08/25/19 at 12:58; Status DC Midazolam HCl 100 mg/Sodium Chloride 100 ml @ 5 mls/hr CONT PRN IV SEE I/O RECORD Last administered on 08/30/19at 17:04; Start 08/25/19 at 16:00 Azithromycin 250 mg/Sodium Chloride 250 ml @ 250 mls/hr Q24H IV Last administered on 08/30/19at 08:18; Start 08/27/19 at 09:00; Stop 08/30/19 at 14:48; Status DC Lansoprazole (Prevacid) 30 mg DAILY FT Last administered on 08/27/19at 07:52; Start 08/27/19 at 09:00; Stop 08/28/19 at 09:38; Status DC Albuterol/ Ipratropium (Duoneb) 3 ml PRN Q4HRS PRN NEB SHORTNESS OF BREATH; Start 08/26/19 at 17:15; Stop 08/26/19 at 17:30; Status DC Insulin Human Lispro (HumaLOG) 0-5 UNITS TIDWMEALS SQ ; Start 08/27/19 at 17:00 Dextrose (Dextrose 50%-Water Syringe) 12.5 gm PRN Q15MIN PRN IV SEE COMMENTS; Start 08/27/19 at 14:30 Pantoprazole Sodium (PROTONIX VIAL for IV PUSH) 40 mg DAILYAC IVP Last administered on 08/31/19at 08:56; Start 08/28/19 at 11:00 Active Scripts Active Pyridium (Phenazopyridine Hcl) 200 Mg Tablet 1 Tab PO TID 3 Days Ciprofloxacin Hcl 500 Mg Tablet 1 Tab PO BID Lidocaine PATCH (Lidocaine) 1 Each Adh..patch 1 Patch TD DAILY Fiorinal 50-325-40 Mg Capsule (Butalbital/Aspirin/Caffeine) 1 Each Capsule 1 Each PO Q6HRS PRN Zofran (Ondansetron Hcl) 4 Mg Tablet 4 Mg PO PRN TID PRN nausea/vomiting Tylenol (Acetaminophen) 325 Mg Tablet 650 Mg PO PRN Q6HRS PRN 30 Days Pantoprazole Sodium (Pantoprazole Sodium) 40 Mg Tablet.dr 40 Mg PO DAILYAC 30 Days Reported Metoprolol Tartrate 25 Mg Tablet 25 Mg PO BID Dicyclomine Hcl 10 Mg Capsule 1 Cap PO BID PRN Imitrex (Sumatriptan Succinate) 100 Mg Tablet 1 Tab PO BID PRN Hydroxyzine Hcl 25 Mg Tablet 1 Tab PO DAILY PRN Diclofenac Sodium 75 Mg Tablet.dr 1 Tab PO BID Zolpidem Tartrate 10 Mg Tablet 10 Mg PO HS Lisinopril 10 Mg Tablet 1 Tab PO HS Gabapentin 800 Mg Tablet 1 Tab PO BID Cyclobenzaprine Hcl 10 Mg Tablet 1 Tab PO BID PRN Colestipol Hcl 1 Gm Tablet 1 Gm PO BID Tramadol Hcl 50 Mg Tablet 1 Tab PO BID Vitals/I & O Vital Sign - Last 24 Hours 08/30/19 08/30/19 08/30/19 08/30/19 17:00 17:03 17:16 17:33 Temp 98.8 98.8 Pulse 74 Resp 12 B/P (MAP) 139/68 (91) Pulse Ox 98 98 98 O2 Delivery Ventilator Ventilator Ventilator 08/30/19 08/30/19 08/30/19 08/30/19 18:00 19:00 19:00 20:00 Temp 98.9 98.9 Pulse 86 74 78 Resp 12 14 15 B/P (MAP) 137/66 (89) 138/71 (93) 141/71 (94) Pulse Ox 98 96 96 O2 Delivery Ventilator Ventilator Ventilator Ventilator 08/30/19 08/30/19 08/30/19 08/30/19 20:00 20:34 21:00 21:09 Pulse 95 Resp 14 B/P (MAP) 140/68 (92) Pulse Ox 98 97 97 O2 Delivery Mechanical Ventilator Ventilator Ventilator O2 Flow Rate 40.0 08/30/19 08/30/19 08/31/19 08/31/19 22:00 23:00 00:00 00:00 Temp 99.2 99.2 Pulse 92 94 96 Resp 14 14 14 B/P (MAP) 157/69 (98) 149/72 (97) 148/70 (96) Pulse Ox 99 99 99 O2 Delivery Ventilator Ventilator Mechanical Ventilator Ventilator 08/31/19 08/31/19 08/31/19 08/31/19 00:54 01:00 02:00 02:30 Pulse 96 102 69 Resp 14 18 20 B/P (MAP) 151/73 (99) 151/73 (99) 157/69 (98) Pulse Ox 98 96 98 98 O2 Delivery Ventilator Ventilator Ventilator Ventilator 4/3/08/31/19 08/31/19 08/31/19 03:00 04:00 04:00 05:00 Temp 99.2 99.2 Pulse 98 99 92 Resp 18 15 15 B/P (MAP) 151/72 (98) 155/73 (100) 147/55 (85) Pulse Ox 98 99 99 O2 Delivery Ventilator Ventilator Mechanical Ventilator Ventilator 08/31/19 08/31/19 08/31/19 08/31/19 05:08 05:09 06:00 07:00 Pulse 92 Resp 16 12 B/P (MAP) 109/51 (70) Pulse Ox 98 98 99 92 O2 Delivery Ventilator Ventilator Ventilator O2 Flow Rate 40.0 08/31/19 08/31/19 08/31/19 08/31/19 07:00 08:00 08:00 08:56 Temp 99.0 99.0 Pulse 74 86 Resp 14 14 B/P (MAP) 116/54 (74) 105/45 (65) Pulse Ox 99 100 O2 Delivery Ventilator Mechanical Ventilator Ventilator Ventilator 08/31/19 08/31/19 08/31/19 08/31/19 09:00 09:00 10:00 10:00 Pulse 86 106 Resp 14 14 17 B/P (MAP) 140/64 (89) 153/69 (97) Pulse Ox 100 99 98 100 O2 Delivery Ventilator Ventilator Ventilator Ventilator 08/31/19 08/31/19 08/31/19 08/31/19 11:00 12:00 12:00 12:05 Pulse 86 70 Resp 17 13 B/P (MAP) 132/61 (84) 134/67 (89) Pulse Ox 98 98 99 O2 Delivery Ventilator Ventilator Mechanical Ventilator 08/31/19 08/31/19 08/31/19 13:00 14:00 15:50 Pulse 94 73 Resp 15 14 B/P (MAP) 148/76 (100) 145/66 (92) Pulse Ox 98 99 97 O2 Delivery Ventilator Ventilator Ventilator Intake and Output 08/30/19 08/30/19 08/31/19 15:00 23:00 07:00 Intake Total 200 ml 2219.98 ml 810 ml Output Total 750 ml 705 ml 870 ml Balance -550 ml 1514.98 ml -60 ml KARLOS ALANIZ MD Aug 31, 2019 16:09
[2019-08-31] MEDS: PROPOFOL 100 ML IV PRN (18:02)
[2019-08-31] MEDS: PATCH REMOVAL. MC SCH (21:00)
[2019-09-01] VITALS (24 sets, daily range): BP systolic 104–163; BP diastolic 60–87
[2019-09-01] MEDS: IV NORMAL SALINE 1000ML BAG 1,000 ML IV SCH ×3 (00:07→20:23)
[2019-09-01] MEDS: PROPOFOL 100 ML IV PRN (00:11)
[2019-09-01 05:49] LABS: BASO % 1 % (0-3); EOS # 0.1 x10^3/uL (0.0-0.7); EOS % 2 % (0-3); HEMATOCRIT 26.8 % (36.0-47.0); HEMOGLOBIN 9.1 g/dL (12.0-15.5); LYMPH # 0.7 x10^3/uL (1.0-4.8); LYMPH % 11 % (24-48); MEAN CORPUSCULAR HEMOGLOBIN 29 pg (25-35); MEAN CORPUSCULAR HGB CONC 34 g/dL (31-37); MEAN CORPUSCULAR VOLUME 84 fL (79-100); MONO % 16 % (0-9); NEUT # 4.4 x10^3/uL (1.8-7.7); NEUT % 71 % (31-73); PLATELET COUNT 403 x10^3/uL (140-400); RED BLOOD COUNT 3.18 x10^6/uL (3.50-5.40); RED CELL DISTRIBUTION WIDTH 12.6 % (11.5-14.5); WHITE BLOOD COUNT 6.2 x10^3/uL (4.0-11.0)
[2019-09-01 06:41] LABS: CALCIUM 8.4 mg/dL (8.5-10.1); CREATININE 0.4 mg/dL (0.6-1.0); GFR 160.2; MAGNESIUM 1.9 mg/dL (1.8-2.4); PHOSPHORUS 2.6 mg/dL (2.6-4.7)
--- NOTE | 2019-09-01 07:53 | PDOC ---
PULMONARY PROGRESS NOTES Subjective Patient remains hemodynamically stable Patient currently weaning off sedation, on assist control ventilation. 45% FiO2, 450 tidal volume , 6 PEEP Currently off pressors Vitals Vital Signs Date Time Temp Pulse Resp B/P (MAP) Pulse Ox O2 Delivery O2 Flow Rate FiO2 09/01/19 06:00 81 24 156/75 (102) 100 Ventilator 09/01/19 03:57 98.3 40.0 98.3 Comments Visual exam done no respiratory distress, , on vent no JVD, no leg edema, no rash Labs Laboratory Tests Test 08/30/19 08:00 08/30/19 12:12 08/30/19 18:06 08/30/19 23:08 O2 Saturation 98 % (92-99) Arterial Blood pH 7.40 (7.35-7.45) Arterial Blood pCO2 at Patient Temp 42 mmHg (35-46) Arterial Blood pO2 at Patient Temp 103 mmHg (65-108) Arterial Blood HCO3 25 mmol/L (21-28) Arterial Blood Base Excess 1 mmol/L (-3-3) FiO2 45 +7 Glucose (Fingerstick) 87 mg/dL (70-99) 85 mg/dL (70-99) 98 mg/dL (70-99) Test 08/31/19 05:30 08/31/19 06:48 08/31/19 09:09 08/31/19 09:25 White Blood Count 9.7 x10^3/uL (4.0-11.0) Red Blood Count 3.97 x10^6/uL (3.50-5.40) Hemoglobin 11.1 g/dL (12.0-15.5) Hematocrit 33.2 % (36.0-47.0) Mean Corpuscular Volume 84 fL (79-100) Mean Corpuscular Hemoglobin 28 pg (25-35) Mean Corpuscular Hemoglobin Concent 34 g/dL (31-37) Red Cell Distribution Width 12.6 % (11.5-14.5) Platelet Count 514 x10^3/uL (140-400) Neutrophils (%) (Auto) 80 % (31-73) Lymphocytes (%) (Auto) 8 % (24-48) Monocytes (%) (Auto) 11 % (0-9) Eosinophils (%) (Auto) 1 % (0-3) Basophils (%) (Auto) 1 % (0-3) Neutrophils # (Auto) 7.8 x10^3/uL (1.8-7.7) Lymphocytes # (Auto) 0.7 x10^3/uL (1.0-4.8) Monocytes # (Auto) 1.1 x10^3/uL (0.0-1.1) Eosinophils # (Auto) 0.1 x10^3/uL (0.0-0.7) Basophils # (Auto) 0.1 x10^3/uL (0.0-0.2) Sodium Level 135 mmol/L (136-145) Potassium Level 4.0 mmol/L (3.5-5.1) Chloride Level 101 mmol/L (98-107) Carbon Dioxide Level 29 mmol/L (21-32) Anion Gap 5 (6-14) Blood Urea Nitrogen 10 mg/dL (7-20) Creatinine 0.4 mg/dL (0.6-1.0) Estimated GFR (Cockcroft-Gault) 160.2 Glucose Level 106 mg/dL (70-99) Calcium Level 8.5 mg/dL (8.5-10.1) Phosphorus Level 3.4 mg/dL (2.6-4.7) Magnesium Level 1.8 mg/dL (1.8-2.4) Glucose (Fingerstick) 97 mg/dL (70-99) 108 mg/dL (70-99) O2 Saturation 98 % (92-99) Arterial Blood pH 7.42 (7.35-7.45) Arterial Blood pCO2 at Patient Temp 47 mmHg (35-46) Arterial Blood pO2 at Patient Temp 105 mmHg (65-108) Arterial Blood HCO3 29 mmol/L (21-28) Arterial Blood Base Excess 4 mmol/L (-3-3) FiO2 100 Test 08/31/19 12:16 08/31/19 16:39 09/01/19 00:31 09/01/19 05:21 Glucose (Fingerstick) 96 mg/dL (70-99) 102 mg/dL (70-99) 102 mg/dL (70-99) White Blood Count 6.2 x10^3/uL (4.0-11.0) Red Blood Count 3.18 x10^6/uL (3.50-5.40) Hemoglobin 9.1 g/dL (12.0-15.5) Hematocrit 26.8 % (36.0-47.0) Mean Corpuscular Volume 84 fL (79-100) Mean Corpuscular Hemoglobin 29 pg (25-35) Mean Corpuscular Hemoglobin Concent 34 g/dL (31-37) Red Cell Distribution Width 12.6 % (11.5-14.5) Platelet Count 403 x10^3/uL (140-400) Neutrophils (%) (Auto) 71 % (31-73) Lymphocytes (%) (Auto) 11 % (24-48) Monocytes (%) (Auto) 16 % (0-9) Eosinophils (%) (Auto) 2 % (0-3) Basophils (%) (Auto) 1 % (0-3) Neutrophils # (Auto) 4.4 x10^3/uL (1.8-7.7) Lymphocytes # (Auto) 0.7 x10^3/uL (1.0-4.8) Monocytes # (Auto) 1.0 x10^3/uL (0.0-1.1) Eosinophils # (Auto) 0.1 x10^3/uL (0.0-0.7) Basophils # (Auto) 0.0 x10^3/uL (0.0-0.2) Test 09/01/19 05:59 09/01/19 06:23 Glucose (Fingerstick) 83 mg/dL (70-99) Sodium Level 142 mmol/L (136-145) Potassium Level 3.0 mmol/L (3.5-5.1) Chloride Level 107 mmol/L (98-107) Carbon Dioxide Level 32 mmol/L (21-32) Anion Gap 3 (6-14) Blood Urea Nitrogen 10 mg/dL (7-20) Creatinine 0.4 mg/dL (0.6-1.0) Estimated GFR (Cockcroft-Gault) 160.2 Glucose Level 118 mg/dL (70-99) Calcium Level 8.4 mg/dL (8.5-10.1) Phosphorus Level 2.6 mg/dL (2.6-4.7) Magnesium Level 1.9 mg/dL (1.8-2.4) Laboratory Tests Test 08/31/19 09:09 08/31/19 09:25 08/31/19 12:16 08/31/19 16:39 Glucose (Fingerstick) 108 mg/dL (70-99) 96 mg/dL (70-99) 102 mg/dL (70-99) O2 Saturation 98 % (92-99) Arterial Blood pH 7.42 (7.35-7.45) Arterial Blood pCO2 at Patient Temp 47 mmHg (35-46) Arterial Blood pO2 at Patient Temp 105 mmHg (65-108) Arterial Blood HCO3 29 mmol/L (21-28) Arterial Blood Base Excess 4 mmol/L (-3-3) FiO2 100 Test 09/01/19 00:31 09/01/19 05:21 09/01/19 05:59 09/01/19 06:23 Glucose (Fingerstick) 102 mg/dL (70-99) 83 mg/dL (70-99) White Blood Count 6.2 x10^3/uL (4.0-11.0) Red Blood Count 3.18 x10^6/uL (3.50-5.40) Hemoglobin 9.1 g/dL (12.0-15.5) Hematocrit 26.8 % (36.0-47.0) Mean Corpuscular Volume 84 fL (79-100) Mean Corpuscular Hemoglobin 29 pg (25-35) Mean Corpuscular Hemoglobin Concent 34 g/dL (31-37) Red Cell Distribution Width 12.6 % (11.5-14.5) Platelet Count 403 x10^3/uL (140-400) Neutrophils (%) (Auto) 71 % (31-73) Lymphocytes (%) (Auto) 11 % (24-48) Monocytes (%) (Auto) 16 % (0-9) Eosinophils (%) (Auto) 2 % (0-3) Basophils (%) (Auto) 1 % (0-3) Neutrophils # (Auto) 4.4 x10^3/uL (1.8-7.7) Lymphocytes # (Auto) 0.7 x10^3/uL (1.0-4.8) Monocytes # (Auto) 1.0 x10^3/uL (0.0-1.1) Eosinophils # (Auto) 0.1 x10^3/uL (0.0-0.7) Basophils # (Auto) 0.0 x10^3/uL (0.0-0.2) Sodium Level 142 mmol/L (136-145) Potassium Level 3.0 mmol/L (3.5-5.1) Chloride Level 107 mmol/L (98-107) Carbon Dioxide Level 32 mmol/L (21-32) Anion Gap 3 (6-14) Blood Urea Nitrogen 10 mg/dL (7-20) Creatinine 0.4 mg/dL (0.6-1.0) Estimated GFR (Cockcroft-Gault) 160.2 Glucose Level 118 mg/dL (70-99) Calcium Level 8.4 mg/dL (8.5-10.1) Phosphorus Level 2.6 mg/dL (2.6-4.7) Magnesium Level 1.9 mg/dL (1.8-2.4) Medications Active Scripts Medications Dose Route/Sig Max Daily Dose Days Date Category Dose Instructions Pyridium (Phenazopyridine Hcl) 200 Mg Tablet 1 Tab PO TID 3 04/16/19 Rx Ciprofloxacin Hcl 500 Mg Tablet 1 Tab PO BID 04/16/19 Rx Lidocaine PATCH (Lidocaine) 1 Each Adh..patch 1 Patch TD DAILY 04/16/19 Rx Metoprolol Tartrate 25 Mg Tablet 25 Mg PO BID 04/15/19 Reported Fiorinal 50-325-40 Mg Capsule (Butalbital/Aspirin/Caffeine) 1 Each Capsule 1 Each PO Q6HRS PRN 03/27/19 Rx Zofran (Ondansetron Hcl) 4 Mg Tablet 4 Mg PO PRN TID PRN 03/27/19 Rx nausea/vomiting Tylenol (Acetaminophen) 325 Mg Tablet 650 Mg PO PRN Q6HRS PRN 30 03/06/19 Rx Pantoprazole Sodium (Pantoprazole Sodium) 40 Mg Tablet.dr 40 Mg PO DAILYAC 30 03/06/19 Rx Dicyclomine Hcl 10 Mg Capsule 1 Cap PO BID PRN 11/27/18 Reported Imitrex (Sumatriptan Succinate) 100 Mg Tablet 1 Tab PO BID PRN 11/27/18 Reported Hydroxyzine Hcl 25 Mg Tablet 1 Tab PO DAILY PRN 11/27/18 Reported Diclofenac Sodium 75 Mg Tablet.dr 1 Tab PO BID 11/27/18 Reported Zolpidem Tartrate 10 Mg Tablet 10 Mg PO HS 11/27/18 Reported Lisinopril 10 Mg Tablet 1 Tab PO HS 06/14/18 Reported Gabapentin 800 Mg Tablet 1 Tab PO BID 06/17/14 Reported Cyclobenzaprine Hcl 10 Mg Tablet 1 Tab PO BID PRN 06/17/14 Reported Colestipol Hcl 1 Gm Tablet 1 Gm PO BID 06/17/14 Reported Tramadol Hcl 50 Mg Tablet 1 Tab PO BID 06/17/14 Reported Comments CXR / reviewed bilateral patchy infiltrates, mild progression Impression . 1. Acute Respiratory failure due to COVID19 Pneumonia/ ARDS 2. Pneumonia, mycoplasma positive/ in addition to COVID-19 pneumonia 3. Acute respiratory failure multifactorial/ARDS 4. COVID-19 positive test (U07.1, COVID-19) with Acute Respiratory Distress S yndrome (ARDS) (J80, ARDS) (If respiratory failure or sepsis present, add as separate assessment) 5. Protein malnutrition present upon admission, severe Chest x-ray reviewed Plan . 6AC mode FIO45%, 7 PEEP, reviewed ABG, wean Fio2 to 40% and PEEP to 5 Continue Zithromax, Plaquenil. dc zithromax at day 5 Oxygenation stable . will start weaning once more awake and assess for CPAP trial, likely today Labs reviewed TF/ tolerating Continue current support follow labs, ABG, chest x-ray. d/w RN/RT Cumulative critical care time of 30 minutes, reviewing data, labs, chest x-ray, making adjustments on mechanical ventilation, AMADOU SANTOS MD Sep 01, 2019 07:52
[2019-09-01] MEDS: INSULIN LISPRO 300 UNITS/3 ML VIAL. SQ SCH ×3 (08:00→17:00)
[2019-09-01] MEDS: GABAPENTIN 400 MG CAPSULE. PO SCH ×2 (09:04→19:19)
[2019-09-01] MEDS: COLESTIPOL HCL 1 GM TABLET PO SCH ×2 (09:04→19:19)
[2019-09-01] MEDS: PANTOPRAZOLE IV PUSH 40 MG VIAL. IVP SCH (09:04)
[2019-09-01] MEDS: traMADol 50 MG TABLET PO SCH ×2 (09:04→19:19)
[2019-09-01] MEDS: LIDOCAINE (700MG/PATCH) PATCH. TD SCH ×2 (09:06→15:01)
[2019-09-01] MEDS: CEFEPIME HCL IV Push 2 GM VIAL. IVP SCH ×2 (09:24→20:23)
[2019-09-01 09:55] LABS: BASE EXCESS ABG 7 mmol/L (-3-3); HCO3 ABG 32 mmol/L (21-28); PCO2 ABG 48 mmHg (35-46); PO2 ABG 133 mmHg (65-108); SAT O2 ABG 98 % (92-99)
[2019-09-01 09:58] LABS: FIO2 ABG 40
--- NOTE | 2019-09-01 12:04 | PDOC ---
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 GERD Acute kidney injury Asthma history of essential Hypertension Dehydration Severe malnutrition Plan: Continue Zithromax and Plaquenil Continue supportive measures and ventilatory support further recommendations based on clinical course. [employer] consultant considering a weaning trial COVID-19 CRITERIA: The patient was evaluated during the global COVID-19 pandemic, and that diagnosis was suspected/considered upon their initial presentation. Their evaluation, treatment and testing was consistent with current guidelines for patients who present with complaints or symptoms that may be related to COVID-19. History of Present Illness History of Present Illness 09/01/2019 No acute events reported overnight, case discussed with nursing staff patient in no acute distress no complaints during my visit off presors seems to be improving 08/31/2019 No acute events reported overnight, case discussed with nursing staff patient in no acute distress during my visit 08/30/2019 Continue to be on AC mode with fio2 at 40% and 6 of peep, no acute events overnight, still requiring a lot of support, remains critically stable. 08/29/2019 Patient remains critically stable, oxygen requirements at 50% discussed with nursing staff at bedside [id number] Patient seen and examined in the ICU She remains mechanically ventilated Assist-control/12/400/50% with 8 of PEEP Sedated with Versed and fentanyl OG feeds running She is Covid 19 positive [id number] Patient seen and examined in the ICU She is extremely critically ill Covid testing is positive Reviewed chest x-ray and CAT scan Discussed with RN Reviewed chart She is on assist-control 18/400/50% Sedated with Versed and fentanyl Also has a maintenance IV [id number] Patient is mechanically ventilated assist-control/18/400/50% Her Covid 19 testing now is positive Chart reviewed Discussed with RN [id number] Patient seen and examined Discussed with RN I called the pharmacy to start some azithromycin because she is now mycoplasma positive Mechanically ventilated Before meals/18/450/50% Chart reviewed Prognosis guarded Vitals Vitals Vital Signs Date Time Temp Pulse Resp B/P (MAP) Pulse Ox O2 Delivery O2 Flow Rate FiO2 09/01/19 11:00 70 17 163/81 (108) 100 Ventilator 09/01/19 08:00 98.7 98.7 09/01/19 03:57 40.0 Physical Exam Physical Exam She is sedated with Versed and fentanyl General: No acute distress, Other (sedated on the vent) Heart: Regular rate (sedated and intubated), Normal S1 Abdomen: Soft Extremities: No cyanosis Skin: No rashes, No breakdown Labs LABS Laboratory Tests Test 08/31/19 12:16 08/31/19 16:39 09/01/19 00:31 09/01/19 05:21 Glucose (Fingerstick) 96 mg/dL (70-99) 102 mg/dL (70-99) 102 mg/dL (70-99) White Blood Count 6.2 x10^3/uL (4.0-11.0) Red Blood Count 3.18 x10^6/uL (3.50-5.40) Hemoglobin 9.1 g/dL (12.0-15.5) Hematocrit 26.8 % (36.0-47.0) Mean Corpuscular Volume 84 fL (79-100) Mean Corpuscular Hemoglobin 29 pg (25-35) Mean Corpuscular Hemoglobin Concent 34 g/dL (31-37) Red Cell Distribution Width 12.6 % (11.5-14.5) Platelet Count 403 x10^3/uL (140-400) Neutrophils (%) (Auto) 71 % (31-73) Lymphocytes (%) (Auto) 11 % (24-48) Monocytes (%) (Auto) 16 % (0-9) Eosinophils (%) (Auto) 2 % (0-3) Basophils (%) (Auto) 1 % (0-3) Neutrophils # (Auto) 4.4 x10^3/uL (1.8-7.7) Lymphocytes # (Auto) 0.7 x10^3/uL (1.0-4.8) Monocytes # (Auto) 1.0 x10^3/uL (0.0-1.1) Eosinophils # (Auto) 0.1 x10^3/uL (0.0-0.7) Basophils # (Auto) 0.0 x10^3/uL (0.0-0.2) Test 09/01/19 05:59 09/01/19 06:23 09/01/19 09:32 09/01/19 11:59 Glucose (Fingerstick) 83 mg/dL (70-99) 115 mg/dL (70-99) Sodium Level 142 mmol/L (136-145) Potassium Level 3.0 mmol/L (3.5-5.1) Chloride Level 107 mmol/L (98-107) Carbon Dioxide Level 32 mmol/L (21-32) Anion Gap 3 (6-14) Blood Urea Nitrogen 10 mg/dL (7-20) Creatinine 0.4 mg/dL (0.6-1.0) Estimated GFR (Cockcroft-Gault) 160.2 Glucose Level 118 mg/dL (70-99) Calcium Level 8.4 mg/dL (8.5-10.1) Phosphorus Level 2.6 mg/dL (2.6-4.7) Magnesium Level 1.9 mg/dL (1.8-2.4) O2 Saturation 98 % (92-99) Arterial Blood pH 7.44 (7.35-7.45) Arterial Blood pCO2 at Patient Temp 48 mmHg (35-46) Arterial Blood pO2 at Patient Temp 133 mmHg (65-108) Arterial Blood HCO3 32 mmol/L (21-28) Arterial Blood Base Excess 7 mmol/L (-3-3) FiO2 40 Assessment and Plan Assessmemt and Plan Problems Medical Problems: (1) Hypotension Status: Acute (2) Hypoxia Status: Acute (3) Right-sided chest pain Status: Acute (4) Suspected 2019-nCoV infection Status: Acute Comment Review of Relevant I have reviewed the following items tori (where applicable) has been applied. Labs Laboratory Tests Test 08/30/19 12:12 08/30/19 18:06 08/30/19 23:08 08/31/19 05:30 Glucose (Fingerstick) 87 mg/dL (70-99) 85 mg/dL (70-99) 98 mg/dL (70-99) White Blood Count 9.7 x10^3/uL (4.0-11.0) Red Blood Count 3.97 x10^6/uL (3.50-5.40) Hemoglobin 11.1 g/dL (12.0-15.5) Hematocrit 33.2 % (36.0-47.0) Mean Corpuscular Volume 84 fL (79-100) Mean Corpuscular Hemoglobin 28 pg (25-35) Mean Corpuscular Hemoglobin Concent 34 g/dL (31-37) Red Cell Distribution Width 12.6 % (11.5-14.5) Platelet Count 514 x10^3/uL (140-400) Neutrophils (%) (Auto) 80 % (31-73) Lymphocytes (%) (Auto) 8 % (24-48) Monocytes (%) (Auto) 11 % (0-9) Eosinophils (%) (Auto) 1 % (0-3) Basophils (%) (Auto) 1 % (0-3) Neutrophils # (Auto) 7.8 x10^3/uL (1.8-7.7) Lymphocytes # (Auto) 0.7 x10^3/uL (1.0-4.8) Monocytes # (Auto) 1.1 x10^3/uL (0.0-1.1) Eosinophils # (Auto) 0.1 x10^3/uL (0.0-0.7) Basophils # (Auto) 0.1 x10^3/uL (0.0-0.2) Sodium Level 135 mmol/L (136-145) Potassium Level 4.0 mmol/L (3.5-5.1) Chloride Level 101 mmol/L (98-107) Carbon Dioxide Level 29 mmol/L (21-32) Anion Gap 5 (6-14) Blood Urea Nitrogen 10 mg/dL (7-20) Creatinine 0.4 mg/dL (0.6-1.0) Estimated GFR (Cockcroft-Gault) 160.2 Glucose Level 106 mg/dL (70-99) Calcium Level 8.5 mg/dL (8.5-10.1) Phosphorus Level 3.4 mg/dL (2.6-4.7) Magnesium Level 1.8 mg/dL (1.8-2.4) Test 08/31/19 06:48 08/31/19 09:09 08/31/19 09:25 08/31/19 12:16 Glucose (Fingerstick) 97 mg/dL (70-99) 108 mg/dL (70-99) 96 mg/dL (70-99) O2 Saturation 98 % (92-99) Arterial Blood pH 7.42 (7.35-7.45) Arterial Blood pCO2 at Patient Temp 47 mmHg (35-46) Arterial Blood pO2 at Patient Temp 105 mmHg (65-108) Arterial Blood HCO3 29 mmol/L (21-28) Arterial Blood Base Excess 4 mmol/L (-3-3) FiO2 100 Test 08/31/19 16:39 09/01/19 00:31 09/01/19 05:21 09/01/19 05:59 Glucose (Fingerstick) 102 mg/dL (70-99) 102 mg/dL (70-99) 83 mg/dL (70-99) White Blood Count 6.2 x10^3/uL (4.0-11.0) Red Blood Count 3.18 x10^6/uL (3.50-5.40) Hemoglobin 9.1 g/dL (12.0-15.5) Hematocrit 26.8 % (36.0-47.0) Mean Corpuscular Volume 84 fL (79-100) Mean Corpuscular Hemoglobin 29 pg (25-35) Mean Corpuscular Hemoglobin Concent 34 g/dL (31-37) Red Cell Distribution Width 12.6 % (11.5-14.5) Platelet Count 403 x10^3/uL (140-400) Neutrophils (%) (Auto) 71 % (31-73) Lymphocytes (%) (Auto) 11 % (24-48) Monocytes (%) (Auto) 16 % (0-9) Eosinophils (%) (Auto) 2 % (0-3) Basophils (%) (Auto) 1 % (0-3) Neutrophils # (Auto) 4.4 x10^3/uL (1.8-7.7) Lymphocytes # (Auto) 0.7 x10^3/uL (1.0-4.8) Monocytes # (Auto) 1.0 x10^3/uL (0.0-1.1) Eosinophils # (Auto) 0.1 x10^3/uL (0.0-0.7) Basophils # (Auto) 0.0 x10^3/uL (0.0-0.2) Test 09/01/19 06:23 09/01/19 09:32 09/01/19 11:59 Sodium Level 142 mmol/L (136-145) Potassium Level 3.0 mmol/L (3.5-5.1) Chloride Level 107 mmol/L (98-107) Carbon Dioxide Level 32 mmol/L (21-32) Anion Gap 3 (6-14) Blood Urea Nitrogen 10 mg/dL (7-20) Creatinine 0.4 mg/dL (0.6-1.0) Estimated GFR (Cockcroft-Gault) 160.2 Glucose Level 118 mg/dL (70-99) Calcium Level 8.4 mg/dL (8.5-10.1) Phosphorus Level 2.6 mg/dL (2.6-4.7) Magnesium Level 1.9 mg/dL (1.8-2.4) O2 Saturation 98 % (92-99) Arterial Blood pH 7.44 (7.35-7.45) Arterial Blood pCO2 at Patient Temp 48 mmHg (35-46) Arterial Blood pO2 at Patient Temp 133 mmHg (65-108) Arterial Blood HCO3 32 mmol/L (21-28) Arterial Blood Base Excess 7 mmol/L (-3-3) FiO2 40 Glucose (Fingerstick) 115 mg/dL (70-99) Laboratory Tests Test 08/31/19 12:16 08/31/19 16:39 09/01/19 00:31 09/01/19 05:21 Glucose (Fingerstick) 96 mg/dL (70-99) 102 mg/dL (70-99) 102 mg/dL (70-99) White Blood Count 6.2 x10^3/uL (4.0-11.0) Red Blood Count 3.18 x10^6/uL (3.50-5.40) Hemoglobin 9.1 g/dL (12.0-15.5) Hematocrit 26.8 % (36.0-47.0) Mean Corpuscular Volume 84 fL (79-100) Mean Corpuscular Hemoglobin 29 pg (25-35) Mean Corpuscular Hemoglobin Concent 34 g/dL (31-37) Red Cell Distribution Width 12.6 % (11.5-14.5) Platelet Count 403 x10^3/uL (140-400) Neutrophils (%) (Auto) 71 % (31-73) Lymphocytes (%) (Auto) 11 % (24-48) Monocytes (%) (Auto) 16 % (0-9) Eosinophils (%) (Auto) 2 % (0-3) Basophils (%) (Auto) 1 % (0-3) Neutrophils # (Auto) 4.4 x10^3/uL (1.8-7.7) Lymphocytes # (Auto) 0.7 x10^3/uL (1.0-4.8) Monocytes # (Auto) 1.0 x10^3/uL (0.0-1.1) Eosinophils # (Auto) 0.1 x10^3/uL (0.0-0.7) Basophils # (Auto) 0.0 x10^3/uL (0.0-0.2) Test 09/01/19 05:59 09/01/19 06:23 09/01/19 09:32 09/01/19 11:59 Glucose (Fingerstick) 83 mg/dL (70-99) 115 mg/dL (70-99) Sodium Level 142 mmol/L (136-145) Potassium Level 3.0 mmol/L (3.5-5.1) Chloride Level 107 mmol/L (98-107) Carbon Dioxide Level 32 mmol/L (21-32) Anion Gap 3 (6-14) Blood Urea Nitrogen 10 mg/dL (7-20) Creatinine 0.4 mg/dL (0.6-1.0) Estimated GFR (Cockcroft-Gault) 160.2 Glucose Level 118 mg/dL (70-99) Calcium Level 8.4 mg/dL (8.5-10.1) Phosphorus Level 2.6 mg/dL (2.6-4.7) Magnesium Level 1.9 mg/dL (1.8-2.4) O2 Saturation 98 % (92-99) Arterial Blood pH 7.44 (7.35-7.45) Arterial Blood pCO2 at Patient Temp 48 mmHg (35-46) Arterial Blood pO2 at Patient Temp 133 mmHg (65-108) Arterial Blood HCO3 32 mmol/L (21-28) Arterial Blood Base Excess 7 mmol/L (-3-3) FiO2 40 Microbiology 08/24/19 Urine Culture - Final, Complete 08/24/19 Urine Culture Result 1 (REUBEN) - Final, Complete 08/23/19 Blood Culture - Final, Complete NO GROWTH AFTER 5 DAYS Medications Current Medications Sodium Chloride 1,000 ml @ 1,000 mls/hr Q1H IV Last administered on 08/23/19at 17:20; Start 08/23/19 at 17:11; Stop 08/23/19 at 18:10; Status DC Ondansetron HCl (Zofran) 4 mg PRN Q8HRS PRN IV NAUSEA/VOMITING Last administered on 08/23/19at 21:54; Start 08/23/19 at 20:00; Stop 08/24/19 at 12:42; Status DC Morphine Sulfate (Morphine Sulfate) 2 mg PRN Q2HR PRN IV PAIN; Start 08/23/19 at 20:00; Stop 08/24/19 at 19:59; Status DC Sodium Chloride 1,000 ml @ 75 mls/hr [id number] IV Last administered on 08/24/19at 09:11; Start 08/23/19 at 19:51; Stop 08/24/19 at 19:50; Status DC Acetaminophen (Tylenol) 650 mg PRN Q4HRS PRN PO FEVER Last administered on 08/23/19at 21:55; Start 08/23/19 at 20:00; Stop 08/24/19 at 11:41; Status DC Sodium Chloride 1,000 ml @ 0 mls/hr 1X ONCE IV ; Start 08/23/19 at 20:15; Stop 08/23/19 at 20:21; Status DC Sodium Chloride 1,000 ml @ 1,000 mls/hr 1X ONCE IV Last administered on 08/23/19at 20:30; Start 08/23/19 at 20:30; Stop 08/23/19 at 21:29; Status DC Levofloxacin/ Dextrose 150 ml @ 100 mls/hr 1X ONCE IV Last administered on 08/23/19at 22:37; Start 08/23/19 at 22:30; Stop 08/23/19 at 23:59; Status DC Tramadol HCl (Ultram) 50 mg BID PO Last administered on 09/01/19at 09:04; Start 08/24/19 at 09:00 Zolpidem Tartrate (Ambien) 5 mg PRN QHS PRN PO INSOMNIA, MAY REPEAT X1; Start 08/24/19 at 00:45 Acetaminophen (Tylenol) 650 mg PRN Q6HRS PRN PO FEVER; Start 08/24/19 at 09:45; Stop 08/24/19 at 12:40; Status DC Colestipol HCl (Colestid) 1 gm BID@1000,2200 PO Last administered on 09/01/19 09:04; Start 08/24/19 at 10:00 Hydroxyzine HCl (Atarax) 25 mg DAILY PRN PO ITCHING Last administered on 09/01/19 09:04; Start 08/24/19 at 09:45 Lidocaine (Lidoderm) 1 patch DAILY TD Last administered on 09/01/19at 09:06; Start 08/24/19 at 10:00 Pantoprazole Sodium (Protonix) 40 mg DAILYAC PO Last administered on 08/26/19at 08:35; Start 08/24/19 at 10:00; Stop 08/26/19 at 15:49; Status DC Acetaminophen/ Butalbital/ Caffeine (Fioricet) 1 tab PRN Q6HRS PRN PO MIGRAINE HEADACHE; Start 08/24/19 at 09:45 Gabapentin (Neurontin) 80 mg BID PO Last administered on 08/24/19at 19:53; Start 08/24/19 at 10:00; Stop 08/25/19 at 09:54; Status DC Ondansetron HCl (Zofran Odt) 4 mg PRN Q8HRS PRN PO NAUSEA/VOMITING Last administered on 08/24/19at 12:36; Start 08/24/19 at 09:45 Miscellaneous (Lidoderm Patch Removal) 1 ea QHS MC Last administered on 08/28/19at 20:51; Start 08/24/19 at 21:00 Levofloxacin/ Dextrose 100 ml @ 100 mls/hr Q24H IV ; Start 08/24/19 at 10:00; Status UNV Levofloxacin/ Dextrose 150 ml @ 100 mls/hr Q48H IV ; Start 08/25/19 at 21:00; Stop 08/24/19 at 12:56; Status DC Sodium Chloride (Normal Saline Flush) 3 ml QSHIFT PRN IV AFTER MEDS AND BLOOD DRAWS; Start 08/24/19 at 12:15 Sodium Chloride 1,000 ml @ 100 mls/hr Q10H IV Last administered on 09/01/19at 00:07; Start 08/24/19 at 20:00 Ondansetron HCl (Zofran) 4 mg PRN Q4HRS PRN IV NAUSEA/VOMITING; Start 08/24/19 at 12:15 Acetaminophen (Tylenol) 650 mg PRN Q4HRS PRN PO TEMP OVER 100.4F OR MILD PAIN Last administered on 08/24/19at 19:53; Start 08/24/19 at 12:15 Al Hydroxide/Mg Hydroxide (Mylanta Plus Xs) 30 ml PRN DAILY PRN PO HEARTBURN / GAS; Start 08/24/19 at 12:15 Clonidine HCl (Catapres) 0.1 mg PRN Q6HRS PRN PO SBP>160 OR DBP>90; Start 08/23 at 12:15 Docusate Sodium (Colace) 100 mg PRN BID PRN PO CONSTIPATION; Start 08/24/19 at 12:15 Albuterol/ Ipratropium (Duoneb) 3 ml Q4H NEB Last administered on 08/26/19at 04:40; Start 08/24/19 at 12:00; Stop 08/26/19 at 17:15; Status DC Guaifenesin (Robitussin) 200 mg PRN Q4HRS PRN PO COUGH; Start 08/24/19 at 12:15 Lorazepam (Ativan) 0.5 mg PRN Q4HRS PRN PO ANXIETY / AGITATION; Start 08/24/19 at 12:15 Enoxaparin Sodium (Lovenox 40mg Syringe) 40 mg Q24H SQ Last administered on 08/31/19at 15:52; Start 08/24/19 at 16:00 Sodium Chloride 1,000 ml @ 1,920 mls/hr Q32M IV Last administered on 08/24/19at 12:30; Start 08/24/19 at 12:30; Stop 08/24/19 at 13:30; Status DC Sodium Chloride 500 ml @ 1,000 mls/hr PRN Q30MIN PRN IV SEE COMMENTS; Start 08/24/19 at 12:30 Cefepime HCl (Maxipime) 2 gm Q12HR IVP Last administered on 09/01/19at 09:24; Start 08/24/19 at 14:00 Vasopressin 20 unit/Dextrose 101 ml @ 12 mls/hr CONT PRN IV SEE I/O RECORD; Start 08/24/19 at 12:30 Dobutamine HCl/ Dextrose 250 ml @ 0 mls/hr CONT PRN IV SEE I/O RECORD; Start 08/24/19 at 12:30 Azithromycin (Zithromax) 500 mg 1X ONCE PO Last administered on 08/24/19at 14: 00; Start 08/24/19 at 13:00; Stop 08/24/19 at 13:23; Status DC Azithromycin (Zithromax) 250 mg DAILY PO Last administered on 08/26/19at 08:36; Start 08/25/19 at 09:00; Stop 08/26/19 at 09:57; Status DC Hydroxychloroquine Sulfate (Plaquenil) 400 mg BID PO Last administered on 08/24/19at 19:53; Start 08/24/19 at 14:00; Stop 08/24/19 at 21:01; Status DC Hydroxychloroquine Sulfate (Plaquenil) 200 mg BID PO Last administered on 08/28/19at 20:43; Start 08/25/19 at 09:00; Stop 08/28/19 at 21:01; Status DC Fentanyl Citrate 30 ml @ 0 mls/hr CONT PRN IV SEE PROTOCOL Last administered on 08/31/19at 05:08; Start 08/24/19 at 22:30 Propofol 100 ml @ 0 mls/hr CONT PRN IV SEE PROTOCOL Last administered on 09/01/19at 00:11; Start 08/24/19 at 22:30 Chlorhexidine Gluconate (Peridex) 15 ml BID MM ; Start 08/25/19 at 09:00; Stop 08/25/19 at 12:11; Status DC Propofol 100 ml @ As Directed STK-MED ONCE IV ; Start 08/24/19 at 22:26; Stop 08/24/19 at 22:27; Status DC Succinylcholine Chloride (Anectine) 200 mg 1X ONCE IV Last administered on 08/24/19at 23:41; Start 08/24/19 at 23:00; Stop 08/24/19 at 23:01; Status DC Midazolam HCl 50 mg/Sodium Chloride 50 ml @ 1 mls/hr CONT PRN IV SEE I/O RECORD Last administered on 08/25/19at 05:28; Start 08/25/19 at 00:00; Stop 08/25/19 at 15:11; Status DC Midazolam HCl 50 mg/Sodium Chloride 50 ml @ 1 mls/hr CONT PRN IV SEE I/O RECORD; Start 08/25/19 at 00:00; Status UNV Sodium Chloride 500 ml @ 500 mls/hr 1X ONCE IV Last administered on 08/25/19at 01:00; Start 08/25/19 at 02:00; Stop 08/25/19 at 02:59; Status DC Norepinephrine Bitartrate 8 mg/ Dextrose 258 ml @ 17.512 mls/ hr CONT PRN IV PER PROTOCOL Last administered on 08/25/19at 15:15; Start 08/25/19 at 02:00 Succinylcholine Chloride (Anectine) 200 mg STK-MED ONCE .ROUTE ; Start 08/25/19 at 03:33; Stop 08/25/19 at 03:34; Status DC Gabapentin (Neurontin) 800 mg BID PO Last administered on 09/01/19at 09:04; Star t 08/25/19 at 09:00 Acetaminophen (Tylenol) 650 mg PRN Q6HRS PRN PEG MILD PAIN / TEMP Last administered on 08/25/19at 12:15; Start 08/25/19 at 12:15 Midazolam HCl 100 mg/Sodium Chloride 100 ml @ 5 mls/hr CONT PRN IV SEE I/O RECORD; Start 08/25/19 at 13:00; Stop 08/25/19 at 12:58; Status DC Midazolam HCl 100 mg/Sodium Chloride 100 ml @ 5 mls/hr CONT PRN IV SEE I/O RECORD Last administered on 08/30/19at 17:04; Start 08/25/19 at 16:00 Azithromycin 250 mg/Sodium Chloride 250 ml @ 250 mls/hr Q24H IV Last admin istered on 08/30/19at 08:18; Start 08/27/19 at 09:00; Stop 08/30/19 at 14:48; Status DC Lansoprazole (Prevacid) 30 mg DAILY FT Last administered on 08/27/19at 07:52; Start 08/27/19 at 09:00; Stop 08/28/19 at 09:38; Status DC Albuterol/ Ipratropium (Duoneb) 3 ml PRN Q4HRS PRN NEB SHORTNESS OF BREATH; Start 08/26/19 at 17:15; Stop 08/26/19 at 17:30; Status DC Insulin Human Lispro (HumaLOG) 0-5 UNITS TIDWMEALS SQ ; Start 08/27/19 at 17:00 Dextrose (Dextrose 50%-Water Syringe) 12.5 gm PRN Q15MIN PRN IV SEE COMMENTS; Start 08/27/19 at 14:30 Pantoprazole Sodium (PROTONIX VIAL for IV PUSH) 40 mg DAILYAC IVP Last administered on 09/01/19at 09:04; Start 08/28/19 at 11:00 Active Scripts Active Pyridium (Phenazopyridine Hcl) 200 Mg Tablet 1 Tab PO TID 3 Days Ciprofloxacin Hcl 500 Mg Tablet 1 Tab PO BID Lidocaine PATCH (Lidocaine) 1 Each Adh..patch 1 Patch TD DAILY Fiorinal 50-325-40 Mg Capsule (Butalbital/Aspirin/Caffeine) 1 Each Capsule 1 Each PO Q6HRS PRN Zofran (Ondansetron Hcl) 4 Mg Tablet 4 Mg PO PRN TID PRN nausea/vomiting Tylenol (Acetaminophen) 325 Mg Tablet 650 Mg PO PRN Q6HRS PRN 30 Days Pantoprazole Sodium (Pantoprazole Sodium) 40 Mg Tablet. 40 Mg PO DAILYAC 30 Days Reported Metoprolol Tartrate 25 Mg Tablet 25 Mg PO BID Dicyclomine Hcl 10 Mg Capsule 1 Cap PO BID PRN Imitrex (Sumatriptan Succinate) 100 Mg Tablet 1 Tab PO BID PRN Hydroxyzine Hcl 25 Mg Tablet 1 Tab PO DAILY PRN Diclofenac Sodium 75 Mg Tablet.dr 1 Tab PO BID Zolpidem Tartrate 10 Mg Tablet 10 Mg PO HS Lisinopril 10 Mg Tablet 1 Tab PO HS Gabapentin 800 Mg Tablet 1 Tab PO BID Cyclobenzaprine Hcl 10 Mg Tablet 1 Tab PO BID PRN Colestipol Hcl 1 Gm Tablet 1 Gm PO BID Tramadol Hcl 50 Mg Tablet 1 Tab PO BID Vitals/I & O Vital Sign - Last 24 Hours 08/31/19 08/31/19 08/31/19 08/31/19 12:05 13:00 14:00 15:00 Pulse 94 73 80 Resp 15 14 12 B/P (MAP) 148/76 (100) 145/66 (92) 127/62 (83) Pulse Ox 99 98 99 97 O2 Delivery Ventilator Ventilator Ventilator 08/31/19 08/31/19 08/31/19 08/31/19 15:50 16:00 16:00 17:00 Pulse 102 110 Resp 12 B/P (MAP) 153/70 (97) 153/71 (98) Pulse Ox 97 97 96 O2 Delivery Ventilator Mechanical Ventilator Ventilator Ventilator 08/31/19 08/31/19 08/31/19 08/31/19 18:00 19:15 20:00 20:08 Temp 98.8 98.8 Pulse 91 96 73 Resp 18 17 B/P (MAP) 147/69 (95) 135/70 (91) 136/62 (86) Pulse Ox 98 98 97 O2 Delivery Ventilator Ventilator Mechanical Ventilator Ventilator 08/31/19 08/31/19 08/31/19 08/31/19 20:41 21:19 22:00 22:19 Pulse 98 Resp 15 15 14 B/P (MAP) 150/74 (99) Pulse Ox 97 100 O2 Delivery Ventilator Ventilator Ventilator Ventilator 08/31/19 09/01/19 09/01/19 09/01/19 23:00 00:00 00:30 00:30 Temp 97.9 97.9 Pulse 92 71 72 Resp 15 12 12 B/P (MAP) 145/77 (99) 118/60 (79) 118/60 (79) Pulse Ox 100 100 100 O2 Delivery Ventilator Mechanical Ventilator Ventilator Ventilator 09/01/19 09/01/19 09/01/19 09/01/19 00:31 01:20 02:09 03:48 Temp 98.3 98.3 Pulse 84 72 85 Resp 13 13 12 B/P (MAP) 148/78 (101) 104/87 (93) 151/75 (100) Pulse Ox 100 100 100 100 O2 Delivery Ventilator Ventilator Ventilator Ventilator 09/01/19 09/01/19 09/01/19 09/01/19 03:57 04:00 04:30 05:00 Temp 98.3 98.3 Pulse 85 86 Resp 16 B/P (MAP) 151/75 (100) 149/73 (98) Pulse Ox 100 100 100 O2 Delivery Mechanical Ventilator Ventilator Ventilator O2 Flow Rate 40.0 09/01/19 09/01/19 09/01/19 09/01/19 06:00 07:00 08:00 08:00 Temp 98.7 98.7 Pulse 81 74 68 Resp 24 15 12 B/P (MAP) 156/75 (102) 151/72 (98) 149/79 (102) Pulse Ox 100 100 99 100 O2 Delivery Ventilator Ventilator Ventilator 09/01/19 09/01/19 09/01/19 09/01/19 09:00 09:04 10:00 11:00 Pulse 74 74 Resp 15 20 14 B/P (MAP) 157/77 (103) 158/75 (102) Pulse Ox 100 100 99 O2 Delivery Ventilator Ventilator Ventilator Ventilator 09/01/19 11:00 Pulse 70 Resp 17 B/P (MAP) 163/81 (108) Pulse Ox 100 O2 Delivery Ventilator Intake and Output 08/31/19 08/31/19 09/01/19 15:00 23:00 07:00 Intake Total 246.74 ml 1881 ml 1300 ml Output Total 800 ml 1425 ml 1375 ml Balance -553.26 ml 456 ml -75 ml KARLOS ALANIZ MD Sep 01, 2019 12:04
[2019-09-01 12:07] LABS: BASE EXCESS ABG 7 mmol/L (-3-3); HCO3 ABG 32 mmol/L (21-28); PCO2 ABG 48 mmHg (35-46); PO2 ABG 121 mmHg (65-108); SAT O2 ABG 98 % (92-99)
[2019-09-01 12:42] LABS: FIO2 ABG 40
[2019-09-01] MEDS: RACEPINEPHRINE 2.25% 0.5 ML NEBU. NEB ONE (16:30)
[2019-09-01] MEDS: ENOXAPARIN 40 MG/0.4 ML SYRINGE. SQ SCH (16:46)
[2019-09-01] MEDS: PATCH REMOVAL. MC SCH (20:52)
[2019-09-01] MEDS: MORPHINE SULFATE 2 MG/ML VIAL. IV PRN (22:09)
[2019-09-02] VITALS (17 sets, daily range): BP systolic 134–175; BP diastolic 60–73
[2019-09-02] MEDS ORDERED: RACEPINEPHRINE 2.25% 0.5 ML NEBU. NEB ONE (01:00)
[2019-09-02] MEDS: IV NORMAL SALINE 1000ML BAG 1,000 ML IV SCH ×3 (05:53→23:44)
[2019-09-02 06:30] LABS: BASO # 0.1 x10^3/uL (0.0-0.2); BASO % 1 % (0-3); EOS # 0.1 x10^3/uL (0.0-0.7); EOS % 1 % (0-3); HEMATOCRIT 29.4 % (36.0-47.0); HEMOGLOBIN 9.8 g/dL (12.0-15.5); LYMPH # 0.8 x10^3/uL (1.0-4.8); LYMPH % 8 % (24-48); MEAN CORPUSCULAR HEMOGLOBIN 28 pg (25-35); MEAN CORPUSCULAR HGB CONC 33 g/dL (31-37); MEAN CORPUSCULAR VOLUME 84 fL (79-100); MONO % 10 % (0-9); NEUT # 7.5 x10^3/uL (1.8-7.7); NEUT % 80 % (31-73); PLATELET COUNT 495 x10^3/uL (140-400); RED BLOOD COUNT 3.48 x10^6/uL (3.50-5.40); RED CELL DISTRIBUTION WIDTH 12.3 % (11.5-14.5); WHITE BLOOD COUNT 9.3 x10^3/uL (4.0-11.0)
[2019-09-02 06:38] LABS: CALCIUM 8.5 mg/dL (8.5-10.1); CREATININE 0.4 mg/dL (0.6-1.0); GFR 160.2
[2019-09-02 06:40] LABS: POTASSIUM 2.8 mmol/L (3.5-5.1)
[2019-09-02] MEDS: INSULIN LISPRO 300 UNITS/3 ML VIAL. SQ SCH ×3 (07:30→17:00)
[2019-09-02] MEDS: PANTOPRAZOLE IV PUSH 40 MG VIAL. IVP SCH (07:57)
[2019-09-02] MEDS: POTASSIUM CHLORIDE 20MEQ 100 ML IV SCH ×4 (07:58→11:00)
[2019-09-02] MEDS: GABAPENTIN 400 MG CAPSULE. PO SCH ×2 (07:58→21:00)
[2019-09-02] MEDS: CEFEPIME HCL IV Push 2 GM VIAL. IVP SCH ×2 (07:58→21:57)
[2019-09-02] MEDS: traMADol 50 MG TABLET PO SCH ×2 (07:59→21:00)
[2019-09-02] MEDS: MORPHINE SULFATE 2 MG/ML VIAL. IV PRN (08:25)
[2019-09-02] MEDS: COLESTIPOL HCL 1 GM TABLET PO SCH ×2 (10:00→21:35)
--- NOTE | 2019-09-02 10:00 | PDOC ---
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 GERD Acute kidney injury Asthma history of essential Hypertension Dehydration Severe malnutrition Plan: Continue supportive measures further recommendations based on clinical course. may move to the 6th floor later in the day COVID-19 CRITERIA: The patient was evaluated during the global COVID-19 pandemic, and that diagnosis was suspected/considered upon their initial presentation. Their evaluation, treatment and testing was consistent with current guidelines for patients who present with complaints or symptoms that may be related to COVID-19. History of Present Illness History of Present Illness 09/02/2019 Patient nauseous today, no acute events reported overnight, case discussed with nursing staff patient in no acute distress no complaints during my visit 09/01/2019 No acute events reported overnight, case discussed with nursing staff patient in no acute distress no complaints during my visit off presors seems to be improving 08/31/2019 No acute events reported overnight, case discussed with nursing staff patient in no acute distress during my visit 08/30/2019 Continue to be on AC mode with fio2 at 40% and 6 of peep, no acute events overnight, still requiring a lot of support, remains critically stable. 08/29/2019 Patient remains critically stable, oxygen requirements at 50% discussed with nursing staff at bedside [id number] Patient seen and examined in the ICU She remains mechanically ventilated Assist-control/12/400/50% with 8 of PEEP Sedated with Versed and fentanyl OG feeds running She is Covid 19 positive [id number] Patient seen and examined in the ICU She is extremely critically ill Covid testing is positive Reviewed chest x-ray and CAT scan Discussed with RN Reviewed chart She is on assist-control 18/400/50% Sedated with Versed and fentanyl Also has a maintenance IV [id number] Patient is mechanically ventilated assist-control/18/400/50% Her Covid 19 testing now is positive Chart reviewed Discussed with RN [id number] Patient seen and examined Discussed with RN I called the pharmacy to start some azithromycin because she is now mycoplasma positive Mechanically ventilated Before meals/18/450/50% Chart reviewed Prognosis guarded Vitals Vitals Vital Signs Date Time Temp Pulse Resp B/P (MAP) Pulse Ox O2 Delivery O2 Flow Rate FiO2 09/02/19 09:00 65 21 148/67 (94) 99 Nasal Cannula 2.0 09/02/19 08:00 98.3 98.3 Physical Exam Physical Exam She is sedated with Versed and fentanyl General: No acute distress, Other (sedated on the vent) Heart: Regular rate (sedated and intubated), Normal S1 Abdomen: Soft Extremities: No cyanosis Skin: No rashes, No breakdown Labs LABS Laboratory Tests Test 09/01/19 11:55 09/01/19 11:59 09/01/19 16:50 09/02/19 05:40 O2 Saturation 98 % (92-99) Arterial Blood pH 7.44 (7.35-7.45) Arterial Blood pCO2 at Patient Temp 48 mmHg (35-46) Arterial Blood pO2 at Patient Temp 121 mmHg (65-108) Arterial Blood pO2 (Temp corrected) mmHg Arterial Blood HCO3 32 mmol/L (21-28) Arterial Blood Base Excess 7 mmol/L (-3-3) FiO2 40 Glucose (Fingerstick) 115 mg/dL (70-99) 121 mg/dL (70-99) White Blood Count 9.3 x10^3/uL (4.0-11.0) Red Blood Count 3.48 x10^6/uL (3.50-5.40) Hemoglobin 9.8 g/dL (12.0-15.5) Hematocrit 29.4 % (36.0-47.0) Mean Corpuscular Volume 84 fL (79-100) Mean Corpuscular Hemoglobin 28 pg (25-35) Mean Corpuscular Hemoglobin Concent 33 g/dL (31-37) Red Cell Distribution Width 12.3 % (11.5-14.5) Platelet Count 495 x10^3/uL (140-400) Neutrophils (%) (Auto) 80 % (31-73) Lymphocytes (%) (Auto) 8 % (24-48) Monocytes (%) (Auto) 10 % (0-9) Eosinophils (%) (Auto) 1 % (0-3) Basophils (%) (Auto) 1 % (0-3) Neutrophils # (Auto) 7.5 x10^3/uL (1.8-7.7) Lymphocytes # (Auto) 0.8 x10^3/uL (1.0-4.8) Monocytes # (Auto) 1.0 x10^3/uL (0.0-1.1) Eosinophils # (Auto) 0.1 x10^3/uL (0.0-0.7) Basophils # (Auto) 0.1 x10^3/uL (0.0-0.2) Sodium Level 147 mmol/L (136-145) Potassium Level 2.8 mmol/L (3.5-5.1) Chloride Level 110 mmol/L (98-107) Carbon Dioxide Level 30 mmol/L (21-32) Anion Gap 7 (6-14) Blood Urea Nitrogen 10 mg/dL (7-20) Creatinine 0.4 mg/dL (0.6-1.0) Estimated GFR (Cockcroft-Gault) 160.2 Glucose Level 101 mg/dL (70-99) Calcium Level 8.5 mg/dL (8.5-10.1) Assessment and Plan Assessmemt and Plan Problems Medical Problems: (1) Hypotension Status: Acute (2) Hypoxia Status: Acute (3) Right-sided chest pain Status: Acute (4) Suspected 2019-nCoV infection Status: Acute Comment Review of Relevant I have reviewed the following items tori (where applicable) has been applied. Labs Laboratory Tests Test 08/31/19 12:16 08/31/19 16:39 09/01/19 00:31 09/01/19 05:21 Glucose (Fingerstick) 96 mg/dL (70-99) 102 mg/dL (70-99) 102 mg/dL (70-99) White Blood Count 6.2 x10^3/uL (4.0-11.0) Red Blood Count 3.18 x10^6/uL (3.50-5.40) Hemoglobin 9.1 g/dL (12.0-15.5) Hematocrit 26.8 % (36.0-47.0) Mean Corpuscular Volume 84 fL (79-100) Mean Corpuscular Hemoglobin 29 pg (25-35) Mean Corpuscular Hemoglobin Concent 34 g/dL (31-37) Red Cell Distribution Width 12.6 % (11.5-14.5) Platelet Count 403 x10^3/uL (140-400) Neutrophils (%) (Auto) 71 % (31-73) Lymphocytes (%) (Auto) 11 % (24-48) Monocytes (%) (Auto) 16 % (0-9) Eosinophils (%) (Auto) 2 % (0-3) Basophils (%) (Auto) 1 % (0-3) Neutrophils # (Auto) 4.4 x10^3/uL (1.8-7.7) Lymphocytes # (Auto) 0.7 x10^3/uL (1.0-4.8) Monocytes # (Auto) 1.0 x10^3/uL (0.0-1.1) Eosinophils # (Auto) 0.1 x10^3/uL (0.0-0.7) Basophils # (Auto) 0.0 x10^3/uL (0.0-0.2) Test 09/01/19 05:59 09/01/19 06:23 09/01/19 09:32 09/01/19 11:55 Glucose (Fingerstick) 83 mg/dL (70-99) Sodium Level 142 mmol/L (136-145) Potassium Level 3.0 mmol/L (3.5-5.1) Chloride Level 107 mmol/L (98-107) Carbon Dioxide Level 32 mmol/L (21-32) Anion Gap 3 (6-14) Blood Urea Nitrogen 10 mg/dL (7-20) Creatinine 0.4 mg/dL (0.6-1.0) Estimated GFR (Cockcroft-Gault) 160.2 Glucose Level 118 mg/dL (70-99) Calcium Level 8.4 mg/dL (8.5-10.1) Phosphorus Level 2.6 mg/dL (2.6-4.7) Magnesium Level 1.9 mg/dL (1.8-2.4) O2 Saturation 98 % (92-99) 98 % (92-99) Arterial Blood pH 7.44 (7.35-7.45) 7.44 (7.35-7.45) Arterial Blood pCO2 at Patient Temp 48 mmHg (35-46) 48 mmHg (35-46) Arterial Blood pO2 at Patient Temp 133 mmHg (65-108) 121 mmHg (65-108) Arterial Blood HCO3 32 mmol/L (21-28) 32 mmol/L (21-28) Arterial Blood Base Excess 7 mmol/L (-3-3) 7 mmol/L (-3-3) FiO2 40 40 Arterial Blood pO2 (Temp corrected) mmHg Test 09/01/19 11:59 09/01/19 16:50 09/02/19 05:40 Glucose (Fingerstick) 115 mg/dL (70-99) 121 mg/dL (70-99) White Blood Count 9.3 x10^3/uL (4.0-11.0) Red Blood Count 3.48 x10^6/uL (3.50-5.40) Hemoglobin 9.8 g/dL (12.0-15.5) Hematocrit 29.4 % (36.0-47.0) Mean Corpuscular Volume 84 fL (79-100) Mean Corpuscular Hemoglobin 28 pg (25-35) Mean Corpuscular Hemoglobin Concent 33 g/dL (31-37) Red Cell Distribution Width 12.3 % (11.5-14.5) Platelet Count 495 x10^3/uL (140-400) Neutrophils (%) (Auto) 80 % (31-73) Lymphocytes (%) (Auto) 8 % (24-48) Monocytes (%) (Auto) 10 % (0-9) Eosinophils (%) (Auto) 1 % (0-3) Basophils (%) (Auto) 1 % (0-3) Neutrophils # (Auto) 7.5 x10^3/uL (1.8-7.7) Lymphocytes # (Auto) 0.8 x10^3/uL (1.0-4.8) Monocytes # (Auto) 1.0 x10^3/uL (0.0-1.1) Eosinophils # (Auto) 0.1 x10^3/uL (0.0-0.7) Basophils # (Auto) 0.1 x10^3/uL (0.0-0.2) Sodium Level 147 mmol/L (136-145) Potassium Level 2.8 mmol/L (3.5-5.1) Chloride Level 110 mmol/L (98-107) Carbon Dioxide Level 30 mmol/L (21-32) Anion Gap 7 (6-14) Blood Urea Nitrogen 10 mg/dL (7-20) Creatinine 0.4 mg/dL (0.6-1.0) Estimated GFR (Cockcroft-Gault) 160.2 Glucose Level 101 mg/dL (70-99) Calcium Level 8.5 mg/dL (8.5-10.1) Laboratory Tests Test 09/01/19 11:55 09/01/19 11:59 09/01/19 16:50 09/02/19 05:40 O2 Saturation 98 % (92-99) Arterial Blood pH 7.44 (7.35-7.45) Arterial Blood pCO2 at Patient Temp 48 mmHg (35-46) Arterial Blood pO2 at Patient Temp 121 mmHg (65-108) Arterial Blood pO2 (Temp corrected) mmHg Arterial Blood HCO3 32 mmol/L (21-28) Arterial Blood Base Excess 7 mmol/L (-3-3) FiO2 40 Glucose (Fingerstick) 115 mg/dL (70-99) 121 mg/dL (70-99) White Blood Count 9.3 x10^3/uL (4.0-11.0) Red Blood Count 3.48 x10^6/uL (3.50-5.40) Hemoglobin 9.8 g/dL (12.0-15.5) Hematocrit 29.4 % (36.0-47.0) Mean Corpuscular Volume 84 fL (79-100) Mean Corpuscular Hemoglobin 28 pg (25-35) Mean Corpuscular Hemoglobin Concent 33 g/dL (31-37) Red Cell Distribution Width 12.3 % (11.5-14.5) Platelet Count 495 x10^3/uL (140-400) Neutrophils (%) (Auto) 80 % (31-73) Lymphocytes (%) (Auto) 8 % (24-48) Monocytes (%) (Auto) 10 % (0-9) Eosinophils (%) (Auto) 1 % (0-3) Basophils (%) (Auto) 1 % (0-3) Neutrophils # (Auto) 7.5 x10^3/uL (1.8-7.7) Lymphocytes # (Auto) 0.8 x10^3/uL (1.0-4.8) Monocytes # (Auto) 1.0 x10^3/uL (0.0-1.1) Eosinophils # (Auto) 0.1 x10^3/uL (0.0-0.7) Basophils # (Auto) 0.1 x10^3/uL (0.0-0.2) Sodium Level 147 mmol/L (136-145) Potassium Level 2.8 mmol/L (3.5-5.1) Chloride Level 110 mmol/L (98-107) Carbon Dioxide Level 30 mmol/L (21-32) Anion Gap 7 (6-14) Blood Urea Nitrogen 10 mg/dL (7-20) Creatinine 0.4 mg/dL (0.6-1.0) Estimated GFR (Cockcroft-Gault) 160.2 Glucose Level 101 mg/dL (70-99) Calcium Level 8.5 mg/dL (8.5-10.1) Microbiology 08/24/19 Urine Culture - Final, Complete 08/24/19 Urine Culture Result 1 (REUBEN) - Final, Complete 08/23/19 Blood Culture - Final, Complete NO GROWTH AFTER 5 DAYS Medications Current Medications Sodium Chloride 1,000 ml @ 1,000 mls/hr Q1H IV Last administered on 08/23/19at 17:20; Start 08/23/19 at 17:11; Stop 08/23/19 at 18:10; Status DC Ondansetron HCl (Zofran) 4 mg PRN Q8HRS PRN IV NAUSEA/VOMITING Last administered on 08/23/19at 21:54; Start 08/23/19 at 20:00; Stop 08/24/19 at 12:42; Status DC Morphine Sulfate (Morphine Sulfate) 2 mg PRN Q2HR PRN IV PAIN; Start 08/23/19 at 20:00; Stop 08/24/19 at 19:59; Status DC Sodium Chloride 1,000 ml @ 75 mls/hr [id number] IV Last administered on 08/24/19at 09:11; Start 08/23/19 at 19:51; Stop 08/24/19 at 19:50; Status DC Acetaminophen (Tylenol) 650 mg PRN Q4HRS PRN PO FEVER Last administered on 08/23/19at 21:55; Start 08/23/19 at 20:00; Stop 08/24/19 at 11:41; Status DC Sodium Chloride 1,000 ml @ 0 mls/hr 1X ONCE IV ; Start 08/23/19 at 20:15; Stop 08/23/19 at 20:21; Status DC Sodium Chloride 1,000 ml @ 1,000 mls/hr 1X ONCE IV Last administered on 08/23/19at 20:30; Start 08/23/19 at 20:30; Stop 08/23/19 at 21:29; Status DC Levofloxacin/ Dextrose 150 ml @ 100 mls/hr 1X ONCE IV Last administered on 08/23/19at 22:37; Start 08/23/19 at 22:30; Stop 08/23/19 at 23:59; Status DC Tramadol HCl (Ultram) 50 mg BID PO Last administered on 09/01/19at 09:04; Start 08/24/19 at 09:00 Zolpidem Tartrate (Ambien) 5 mg PRN QHS PRN PO INSOMNIA, MAY REPEAT X1; Start 08/24/19 at 00:45 Acetaminophen (Tylenol) 650 mg PRN Q6HRS PRN PO FEVER; Start 08/24/19 at 09:45; Stop 08/24/19 at 12:40; Status DC Colestipol HCl (Colestid) 1 gm BID@1000,2200 PO Last administered on 09/01/19at 09:04; Start 08/24/19 at 10:00 Hydroxyzine HCl (Atarax) 25 mg DAILY PRN PO ITCHING Last administered on 09/01/19at 09:04; Start 08/24/19 at 09:45 Lidocaine (Lidoderm) 1 patch DAILY TD Last administered on 09/01/19at 15:01; Start 08/24/19 at 10:00 Pantoprazole Sodium (Protonix) 40 mg DAILYAC PO Last administered on 08/26/19at 08:35; Start 08/24/19 at 10:00; Stop 08/26/19 at 15:49; Status DC Acetaminophen/ Butalbital/ Caffeine (Fioricet) 1 tab PRN Q6HRS PRN PO MIGRAINE HEADACHE; Start 08/24/19 at 09:45 Gabapentin (Neurontin) 80 mg BID PO Last administered on 08/24/19at 19:53; Sta rt 08/24/19 at 10:00; Stop 08/25/19 at 09:54; Status DC Ondansetron HCl (Zofran Odt) 4 mg PRN Q8HRS PRN PO NAUSEA/VOMITING Last administered on 08/24/19at 12:36; Start 08/24/19 at 09:45 Miscellaneous (Lidoderm Patch Removal) 1 ea QHS MC Last administered on 08/28/19at 20:51; Start 08/24/19 at 21:00 Levofloxacin/ Dextrose 100 ml @ 100 mls/hr Q24H IV ; Start 08/24/19 at 10:00; Status UNV Levofloxacin/ Dextrose 150 ml @ 100 mls/hr Q48H IV ; Start 08/25/19 at 21:00; Stop 08/24/19 at 12:56; Status DC Sodium Chloride (Normal Saline Flush) 3 ml QSHIFT PRN IV AFTER MEDS AND BLOOD DRAWS; Start 08/24/19 at 12:15 Sodium Chloride 1,000 ml @ 100 mls/hr Q10H IV Last administered on 09/02/19at 05:53; Start 08/24/19 at 20:00 Ondansetron HCl (Zofran) 4 mg PRN Q4HRS PRN IV NAUSEA/VOMITING Last administered on 09/02/19at 08:37; Start 08/24/19 at 12:15 Acetaminophen (Tylenol) 650 mg PRN Q4HRS PRN PO TEMP OVER 100.4F OR MILD PAIN Last administered on 08/24/19at 19:53; Start 08/24/19 at 12:15 Al Hydroxide/Mg Hydroxide (Mylanta Plus Xs) 30 ml PRN DAILY PRN PO HEARTBURN / GAS; Start 08/24/19 at 12:15 Clonidine HCl (Catapres) 0.1 mg PRN Q6HRS PRN PO SBP>160 OR DBP>90; Start 08/24/19 at 12:15 Docusate Sodium (Colace) 100 mg PRN BID PRN PO CONSTIPATION; Start 08/24/19 at 12:15 Albuterol/ Ipratropium (Duoneb) 3 ml Q4H NEB Last administered on 08/26/19at 04:40; Start 08/24/19 at 12:00; Stop 08/26/19 at 17:15; Status DC Guaifenesin (Robitussin) 200 mg PRN Q4HRS PRN PO COUGH; Start 08/24/19 at 12:15 Lorazepam (Ativan) 0.5 mg PRN Q4HRS PRN PO ANXIETY / AGITATION; Start 08/24/19 at 12:15 Enoxaparin Sodium (Lovenox 40mg Syringe) 40 mg Q24H SQ Last administered on 09/01/19at 16:46; Start 08/24/19 at 16:00 Sodium Chloride 1,000 ml @ 1,920 mls/hr Q32M IV Last administered on 08/24/19at 12:30; Start 08/24/19 at 12:30; Stop 08/24/19 at 13:30; Status DC Sodium Chloride 500 ml @ 1,000 mls/hr PRN Q30MIN PRN IV SEE COMMENTS; Start 08/24/19 at 12:30 Cefepime HCl (Maxipime) 2 gm Q12HR IVP Last administered on 09/02/19at 07:58; Start 08/24/19 at 14:00 Vasopressin 20 unit/Dextrose 101 ml @ 12 mls/hr CONT PRN IV SEE I/O RECORD; Start 08/24/19 at 12:30 Dobutamine HCl/ Dextrose 250 ml @ 0 mls/hr CONT PRN IV SEE I/O RECORD; Start 08/24/19 at 12:30 Azithromycin (Zithromax) 500 mg 1X ONCE PO Last administered on 08/24/19at 14:00; Start 08/24/19 at 13:00; Stop 08/24/19 at 13:23; Status DC Azithromycin (Zithromax) 250 mg DAILY PO Last administered on 08/26/19at 08:36; Start 08/25/19 at 09:00; Stop 08/26/19 at 09:57; Status DC Hydroxychloroquine Sulfate (Plaquenil) 400 mg BID PO Last administered on 08/24/19at 19:53; Start 08/24/19 at 14:00; Stop 08/24/19 at 21:01; Status DC Hydroxychloroquine Sulfate (Plaquenil) 200 mg BID PO Last administered on 08/28/19at 20:43; Start 08/25/19 at 09:00; Stop 08/28/19 at 21:01; Status DC Fentanyl Citrate 30 ml @ 0 mls/hr CONT PRN IV SEE PROTOCOL Last administered on 08/31/19at 05:08; Start 08/24/19 at 22:30; Stop 09/01/19 at 21:10; Status DC Propofol 100 ml @ 0 mls/hr CONT PRN IV SEE PROTOCOL Last administered on 08/31at 00:11; Start 08/24/19 at 22:30; Stop 09/01/19 at 21:10; Status DC Chlorhexidine Gluconate (Peridex) 15 ml BID MM ; Start 08/25/19 at 09:00; Stop 08/25/19 at 12:11; Status DC Propofol 100 ml @ As Directed STK-MED ONCE IV ; Start 08/24/19 at 22:26; Stop 08/24/19 at 22:27; Status DC Succinylcholine Chloride (Anectine) 200 mg 1X ONCE IV Last administered on 08/24/19at 23:41; Start 08/24/19 at 23:00; Stop 08/24/19 at 23:01; Status DC Midazolam HCl 50 mg/Sodium Chloride 50 ml @ 1 mls/hr CONT PRN IV SEE I/O RECORD Last administered on 08/25/19at 05:28; Start 08/25/19 at 00:00; Stop 08/25/19 at 15:11; Status DC Midazolam HCl 50 mg/Sodium Chloride 50 ml @ 1 mls/hr CONT PRN IV SEE I/O RECORD; Start 08/25/19 at 00:00; Status UNV Sodium Chloride 500 ml @ 500 mls/hr 1X ONCE IV Last administered on 08/25/19at 01:00; Start 08/25/19 at 02:00; Stop 08/25/19 at 02:59; Status DC Norepinephrine Bitartrate 8 mg/ Dextrose 258 ml @ 17.512 mls/ hr CONT PRN IV PER PROTOCOL Last administered on 08/25/19at 15:15; Start 08/25/19 at 02:00 Succinylcholine Chloride (Anectine) 200 mg STK-MED ONCE .ROUTE ; Start 08/25/19 at 03:33; Stop 08/25/19 at 03:34; Status DC Gabapentin (Neurontin) 800 mg BID PO Last administered on 09/01/19at 09:04; Start 08/25/19 at 09:00 Acetaminophen (Tylenol) 650 mg PRN Q6HRS PRN PEG MILD PAIN / TEMP Last administered on 08/25/19at 12:15; Start 08/25/19 at 12:15 Midazolam HCl 100 mg/Sodium Chloride 100 ml @ 5 mls/hr CONT PRN IV SEE I/O RECORD; Start 08/25/19 at 13:00; Stop 08/25/19 at 12:58; Status DC Midazolam HCl 100 mg/Sodium Chloride 100 ml @ 5 mls/hr CONT PRN IV SEE I/O RECORD Last administered on 08/30/19at 17:04; Start 08/25/19 at 16:00; Stop 09/01/19 at 21:10; Status DC Azithromycin 250 mg/Sodium Chloride 250 ml @ 250 mls/hr Q24H IV Last a dministered on 08/30/19at 08:18; Start 08/27/19 at 09:00; Stop 08/30/19 at 14:48; Status DC Lansoprazole (Prevacid) 30 mg DAILY FT Last administered on 08/27/19at 07:52; Start 08/27/19 at 09:00; Stop 08/28/19 at 09:38; Status DC Albuterol/ Ipratropium (Duoneb) 3 ml PRN Q4HRS PRN NEB SHORTNESS OF BREATH; Start 08/26/19 at 17:15; Stop 08/26/19 at 17:30; Status DC Insulin Human Lispro (HumaLOG) 0-5 UNITS TIDWMEALS SQ ; Start 08/27/19 at 17:00 Dextrose (Dextrose 50%-Water Syringe) 12.5 gm PRN Q15MIN PRN IV SEE COMMENTS; Start 08/27/19 at 14:30 Pantoprazole Sodium (PROTONIX VIAL for IV PUSH) 40 mg DAILYAC IVP Last administered on 09/02/19at 07:57; Start 08/28/19 at 11:00 Epinephrine (S2 Racepinephrine) 0.5 ml 1X ONCE NEB ; Start 09/01/19 at 16:30; Stop 09/01/19 at 16:31; Status DC Morphine Sulfate (Morphine Sulfate) 2 mg PRN Q2HR PRN IV PAIN Last administered on 09/02/19at 08:25; Start 09/01/19 at 20:45 Epinephrine (S2 Racepinephrine) 0.5 ml 1X ONCE NEB Last administered on 09/02/19at 00:54; Start 09/02/19 at 01:00; Stop 09/02/19 at 01:01; Status DC Potassium Chloride/Water 100 ml @ 100 mls/hr Q1H IV Last administered on 09/02/19at 07:58; Start 09/02/19 at 08:00; Stop 09/02/19 at 11:59 Ondansetron HCl (Zofran) 4 mg PRN Q6HRS PRN IVP NAUSEA/VOMITING; Start 09/02/19 at 08:45 Active Scripts Active Pyridium (Phenazopyridine Hcl) 200 Mg Tablet 1 Tab PO TID 3 Days Ciprofloxacin Hcl 500 Mg Tablet 1 Tab PO BID Lidocaine PATCH (Lidocaine) 1 Each Adh..patch 1 Patch TD DAILY Fiorinal 50-325-40 Mg Capsule (Butalbital/Aspirin/Caffeine) 1 Each Capsule 1 Each PO Q6HRS PRN Zofran (Ondansetron Hcl) 4 Mg Tablet 4 Mg PO PRN TID PRN nausea/vomiting Tylenol (Acetaminophen) 325 Mg Tablet 650 Mg PO PRN Q6HRS PRN 30 Days Pantoprazole Sodium (Pantoprazole Sodium) 40 Mg Tablet.dr 40 Mg PO DAILYAC 30 Days Reported Metoprolol Tartrate 25 Mg Tablet 25 Mg PO BID Dicyclomine Hcl 10 Mg Capsule 1 Cap PO BID PRN Imitrex (Sumatriptan Succinate) 100 Mg Tablet 1 Tab PO BID PRN Hydroxyzine Hcl 25 Mg Tablet 1 Tab PO DAILY PRN Diclofenac Sodium 75 Mg Tablet.dr 1 Tab PO BID Zolpidem Tartrate 10 Mg Tablet 10 Mg PO HS Lisinopril 10 Mg Tablet 1 Tab PO HS Gabapentin 800 Mg Tablet 1 Tab PO BID Cyclobenzaprine Hcl 10 Mg Tablet 1 Tab PO BID PRN Colestipol Hcl 1 Gm Tablet 1 Gm PO BID Tramadol Hcl 50 Mg Tablet 1 Tab PO BID Vitals/I & O Vital Sign - Last 24 Hours 09/01/19 09/01/19 09/01/19 09/01/19 10:00 11:00 11:00 12:00 Pulse 74 70 Resp 14 17 B/P (MAP) 158/75 (102) 163/81 (108) Pulse Ox 100 99 100 O2 Delivery Ventilator Ventilator Ventilator Mechanical Ventilator O2 Flow Rate 40.0 09/01/19 09/01/19 09/01/19 09/01/19 12:00 13:00 14:00 15:00 Temp 98.9 98.9 Pulse 62 78 88 74 Resp 12 22 21 16 B/P (MAP) 148/72 (97) 161/79 (106) 140/60 (86) 138/75 (96) Pulse Ox 99 100 98 98 O2 Delivery Ventilator Nasal Cannula Nasal Cannula Nasal Cannula O2 Flow Rate 2.0 2.0 2.0 09/01/19 09/01/19 09/01/19 09/01/19 16:00 16:00 17:00 18:00 Temp 98.3 98.3 Pulse 66 66 68 Resp 18 18 18 B/P (MAP) 153/75 (101) 150/72 (98) 159/75 (103) Pulse Ox 98 98 98 O2 Delivery Nasal Cannula Nasal Cannula Nasal Cannula Nasal Cannula O2 Flow Rate 2.0 4.0 2.0 2.0 09/01/19 09/01/19 09/01/19 09/01/19 19:00 20:00 20:00 21:00 Temp 98.1 98.1 Pulse 76 68 70 Resp 23 23 25 B/P (MAP) 155/72 (99) 153/69 (97) 155/72 (99) Pulse Ox 98 98 98 O2 Delivery Nasal Cannula Nasal Cannula Nasal Cannula Nasal Cannula O2 Flow Rate 2.0 2.0 2.0 2.0 09/01/19 09/01/19 09/01/19 09/01/19 22:00 22:09 22:39 23:00 Pulse 98 68 Resp 24 23 25 26 B/P (MAP) 127/78 (94) 150/72 (98) Pulse Ox 98 98 98 94 O2 Delivery Nasal Cannula Nasal Cannula Nasal Cannula Nasal Cannula O2 Flow Rate 2.0 2.0 2.0 2.0 09/02/19 09/02/19 09/02/19 09/02/19 00:00 00:00 00:55 01:00 Temp 98.2 98.2 Pulse 95 69 Resp 15 17 B/P (MAP) 150/65 (93) 147/68 (94) Pulse Ox 99 98 98 O2 Delivery Nasal Cannula Nasal Cannula Nasal Cannula Nasal Cannula O2 Flow Rate 2.0 2.0 3.0 2.0 09/02/19 09/02/19 09/02/19 09/02/19 02:00 03:00 04:00 04:00 Temp 99.0 99.0 Pulse 79 78 75 Resp 20 B/P (MAP) 153/65 (94) 148/65 (92) 149/73 (98) Pulse Ox 99 99 99 O2 Delivery Nasal Cannula Nasal Cannula Nasal Cannula Nasal Cannula O2 Flow Rate 2.0 2.0 2.0 2.0 09/02/19 09/02/19 09/02/19 09/02/19 05:00 06:00 07:00 08:00 Pulse 72 70 67 Resp 23 B/P (MAP) 144/69 (94) 148/67 (94) 134/67 (89) Pulse Ox 99 99 99 O2 Delivery Nasal Cannula Nasal Cannula Nasal Cannula Nasal Cannula O2 Flow Rate 2.0 2.0 2.0 2.0 09/02/19 09/02/19 09/02/19 08:00 08:25 09:00 Temp 98.3 98.3 Pulse 68 65 Resp 21 B/P (MAP) 145/60 (88) 148/67 (94) Pulse Ox 99 99 99 O2 Delivery Nasal Cannula Nasal Cannula Nasal Cannula O2 Flow Rate 2.0 2.0 2.0 Intake and Output 09/01/19 09/01/19 09/02/19 15:00 23:00 07:00 Intake Total 1600 ml 1000 ml 1344 ml Output Total 1340 ml 1200 ml 950 ml Balance 260 ml -200 ml 394 ml KARLOS ALANIZ MD Sep 02, 2019 10:00
--- NOTE | 2019-09-02 11:17 | PDOC ---
PULMONARY PROGRESS NOTES Subjective Patient remains hemodynamically stable, extubated 09/01/2019, remains on N/C remains off pressors no overnight concerns from nursing, some nausea this am Vitals Vital Signs Date Time Temp Pulse Resp B/P (MAP) Pulse Ox O2 Delivery O2 Flow Rate FiO2 09/02/19 10:05 65 21 151/63 (92) 99 Nasal Cannula 2.0 09/02/19 08:00 98.3 98.3 Comments Visual exam done no respiratory distress, extubated on N/C no JVD, no leg edema, no rash Labs Laboratory Tests Test 08/31/19 12:16 08/31/19 16:39 09/01/19 00:31 09/01/19 05:21 Glucose (Fingerstick) 96 mg/dL (70-99) 102 mg/dL (70-99) 102 mg/dL (70-99) White Blood Count 6.2 x10^3/uL (4.0-11.0) Red Blood Count 3.18 x10^6/uL (3.50-5.40) Hemoglobin 9.1 g/dL (12.0-15.5) Hematocrit 26.8 % (36.0-47.0) Mean Corpuscular Volume 84 fL (79-100) Mean Corpuscular Hemoglobin 29 pg (25-35) Mean Corpuscular Hemoglobin Concent 34 g/dL (31-37) Red Cell Distribution Width 12.6 % (11.5-14.5) Platelet Count 403 x10^3/uL (140-400) Neutrophils (%) (Auto) 71 % (31-73) Lymphocytes (%) (Auto) 11 % (24-48) Monocytes (%) (Auto) 16 % (0-9) Eosinophils (%) (Auto) 2 % (0-3) Basophils (%) (Auto) 1 % (0-3) Neutrophils # (Auto) 4.4 x10^3/uL (1.8-7.7) Lymphocytes # (Auto) 0.7 x10^3/uL (1.0-4.8) Monocytes # (Auto) 1.0 x10^3/uL (0.0-1.1) Eosinophils # (Auto) 0.1 x10^3/uL (0.0-0.7) Basophils # (Auto) 0.0 x10^3/uL (0.0-0.2) Test 09/01/19 05:59 09/01/19 06:23 09/01/19 09:32 09/01/19 11:55 Glucose (Fingerstick) 83 mg/dL (70-99) Sodium Level 142 mmol/L (136-145) Potassium Level 3.0 mmol/L (3.5-5.1) Chloride Level 107 mmol/L (98-107) Carbon Dioxide Level 32 mmol/L (21-32) Anion Gap 3 (6-14) Blood Urea Nitrogen 10 mg/dL (7-20) Creatinine 0.4 mg/dL (0.6-1.0) Estimated GFR (Cockcroft-Gault) 160.2 Glucose Level 118 mg/dL (70-99) Calcium Level 8.4 mg/dL (8.5-10.1) Phosphorus Level 2.6 mg/dL (2.6-4.7) Magnesium Level 1.9 mg/dL (1.8-2.4) O2 Saturation 98 % (92-99) 98 % (92-99) Arterial Blood pH 7.44 (7.35-7.45) 7.44 (7.35-7.45) Arterial Blood pCO2 at Patient Temp 48 mmHg (35-46) 48 mmHg (35-46) Arterial Blood pO2 at Patient Temp 133 mmHg (65-108) 121 mmHg (65-108) Arterial Blood HCO3 32 mmol/L (21-28) 32 mmol/L (21-28) Arterial Blood Base Excess 7 mmol/L (-3-3) 7 mmol/L (-3-3) FiO2 40 40 Arterial Blood pO2 (Temp corrected) mmHg Test 09/01/19 11:59 09/01/19 16:50 09/02/19 05:40 Glucose (Fingerstick) 115 mg/dL (70-99) 121 mg/dL (70-99) White Blood Count 9.3 x10^3/uL (4.0-11.0) Red Blood Count 3.48 x10^6/uL (3.50-5.40) Hemoglobin 9.8 g/dL (12.0-15.5) Hematocrit 29.4 % (36.0-47.0) Mean Corpuscular Volume 84 fL (79-100) Mean Corpuscular Hemoglobin 28 pg (25-35) Mean Corpuscular Hemoglobin Concent 33 g/dL (31-37) Red Cell Distribution Width 12.3 % (11.5-14.5) Platelet Count 495 x10^3/uL (140-400) Neutrophils (%) (Auto) 80 % (31-73) Lymphocytes (%) (Auto) 8 % (24-48) Monocytes (%) (Auto) 10 % (0-9) Eosinophils (%) (Auto) 1 % (0-3) Basophils (%) (Auto) 1 % (0-3) Neutrophils # (Auto) 7.5 x10^3/uL (1.8-7.7) Lymphocytes # (Auto) 0.8 x10^3/uL (1.0-4.8) Monocytes # (Auto) 1.0 x10^3/uL (0.0-1.1) Eosinophils # (Auto) 0.1 x10^3/uL (0.0-0.7) Basophils # (Auto) 0.1 x10^3/uL (0.0-0.2) Sodium Level 147 mmol/L (136-145) Potassium Level 2.8 mmol/L (3.5-5.1) Chloride Level 110 mmol/L (98-107) Carbon Dioxide Level 30 mmol/L (21-32) Anion Gap 7 (6-14) Blood Urea Nitrogen 10 mg/dL (7-20) Creatinine 0.4 mg/dL (0.6-1.0) Estimated GFR (Cockcroft-Gault) 160.2 Glucose Level 101 mg/dL (70-99) Calcium Level 8.5 mg/dL (8.5-10.1) Laboratory Tests Test 09/01/19 11:55 09/01/19 11:59 09/01/19 16:50 09/02/19 05:40 O2 Saturation 98 % (92-99) Arterial Blood pH 7.44 (7.35-7.45) Arterial Blood pCO2 at Patient Temp 48 mmHg (35-46) Arterial Blood pO2 at Patient Temp 121 mmHg (65-108) Arterial Blood pO2 (Temp corrected) mmHg Arterial Blood HCO3 32 mmol/L (21-28) Arterial Blood Base Excess 7 mmol/L (-3-3) FiO2 40 Glucose (Fingerstick) 115 mg/dL (70-99) 121 mg/dL (70-99) White Blood Count 9.3 x10^3/uL (4.0-11.0) Red Blood Count 3.48 x10^6/uL (3.50-5.40) Hemoglobin 9.8 g/dL (12.0-15.5) Hematocrit 29.4 % (36.0-47.0) Mean Corpuscular Volume 84 fL (79-100) Mean Corpuscular Hemoglobin 28 pg (25-35) Mean Corpuscular Hemoglobin Concent 33 g/dL (31-37) Red Cell Distribution Width 12.3 % (11.5-14.5) Platelet Count 495 x10^3/uL (140-400) Neutrophils (%) (Auto) 80 % (31-73) Lymphocytes (%) (Auto) 8 % (24-48) Monocytes (%) (Auto) 10 % (0-9) Eosinophils (%) (Auto) 1 % (0-3) Basophils (%) (Auto) 1 % (0-3) Neutrophils # (Auto) 7.5 x10^3/uL (1.8-7.7) Lymphocytes # (Auto) 0.8 x10^3/uL (1.0-4.8) Monocytes # (Auto) 1.0 x10^3/uL (0.0-1.1) Eosinophils # (Auto) 0.1 x10^3/uL (0.0-0.7) Basophils # (Auto) 0.1 x10^3/uL (0.0-0.2) Sodium Level 147 mmol/L (136-145) Potassium Level 2.8 mmol/L (3.5-5.1) Chloride Level 110 mmol/L (98-107) Carbon Dioxide Level 30 mmol/L (21-32) Anion Gap 7 (6-14) Blood Urea Nitrogen 10 mg/dL (7-20) Creatinine 0.4 mg/dL (0.6-1.0) Estimated GFR (Cockcroft-Gault) 160.2 Glucose Level 101 mg/dL (70-99) Calcium Level 8.5 mg/dL (8.5-10.1) Medications Active Scripts Medications Dose Route/Sig Max Daily Dose Days Date Category Dose Instructions Pyridium (Phenazopyridine Hcl) 200 Mg Tablet 1 Tab PO TID 3 04/16/19 Rx Ciprofloxacin Hcl 500 Mg Tablet 1 Tab PO BID 04/16/19 Rx Lidocaine PATCH (Lidocaine) 1 Each Adh..patch 1 Patch TD DAILY 04/16/19 Rx Metoprolol Tartrate 25 Mg Tablet 25 Mg PO BID 04/15/19 Reported Fiorinal 50-325-40 Mg Capsule (Butalbital/Aspirin/Caffeine) 1 Each Capsule 1 Each PO Q6HRS PRN 03/27/19 Rx Zofran (Ondansetron Hcl) 4 Mg Tablet 4 Mg PO PRN TID PRN 03/27/19 Rx nausea/vomiting Tylenol (Acetaminophen) 325 Mg Tablet 650 Mg PO PRN Q6HRS PRN 30 03/06/19 Rx Pantoprazole Sodium (Pantoprazole Sodium) 40 Mg Tablet.dr 40 Mg PO DAILYAC 30 03/06/19 Rx Dicyclomine Hcl 10 Mg Capsule 1 Cap PO BID PRN 11/27/18 Reported Imitrex (Sumatriptan Succinate) 100 Mg Tablet 1 Tab PO BID PRN 11/27/18 Reported Hydroxyzine Hcl 25 Mg Tablet 1 Tab PO DAILY PRN 11/27/18 Reported Diclofenac Sodium 75 Mg Tablet.dr 1 Tab PO BID 11/27/18 Reported Zolpidem Tartrate 10 Mg Tablet 10 Mg PO HS 11/27/18 Reported Lisinopril 10 Mg Tablet 1 Tab PO HS 06/14/18 Reported Gabapentin 800 Mg Tablet 1 Tab PO BID 06/17/14 Reported Cyclobenzaprine Hcl 10 Mg Tablet 1 Tab PO BID PRN 06/17/14 Reported Colestipol Hcl 1 Gm Tablet 1 Gm PO BID 06/17/14 Reported Tramadol Hcl 50 Mg Tablet 1 Tab PO BID 06/17/14 Reported Comments CXR / reviewed bilateral patchy infiltrates, mild progression Impression . 1. Acute Respiratory failure due to COVID19 Pneumonia/ ARDS--improving 2. Pneumonia, mycoplasma positive/ in addition to COVID-19 pneumonia--improving 3. Acute respiratory failure multifactorial/ARDS-improving 4. COVID-19 positive test (U07.1, COVID-19) with Acute Respiratory Distress Syndrome (ARDS) (J80, ARDS) (If respiratory failure or sepsis present, add as separate assessment) 5. Protein malnutrition present upon admission, severe Plan . extubated on 09/01/2019, continue N/C oxygen Continue Zithromax, Plaquenil. dc zithromax at day 5 Labs reviewed Continue current support follow labs, chest x-ray d/w RN/RT ok to transfer COVID ICU , continue isolation precautions PT/OT Cumulative critical care time of 30 minutes, reviewing data, labs, chest x-ray, AMADOU SANTOS MD Sep 02, 2019 11:17
[2019-09-02] MEDS: ENOXAPARIN 40 MG/0.4 ML SYRINGE. SQ SCH (15:17)
[2019-09-02] MEDS: ONDANSETRON PF 4 MG/2 ML VIAL. IVP PRN (15:32)
[2019-09-02] MEDS: PATCH REMOVAL. MC SCH (21:00)
[2019-09-03 03:00] VITALS: BP 146/65
[2019-09-03] MEDS: KETOROLAC 30 MG/ML VIAL. IVP PRN ×4 (03:55→23:04)
[2019-09-03 07:00] VITALS: BP 171/78
[2019-09-03] MEDS: INSULIN LISPRO 300 UNITS/3 ML VIAL. SQ SCH ×3 (08:00→17:00)
--- NOTE | 2019-09-03 08:10 | RAD ---
AP chest. HISTORY: Extubated AP view was taken of the chest. Right PICC line remains in good position. Endotracheal tube and NG tube have been removed. There are diffuse bilateral infiltrates with marginal improvement compared to the prior study. IMPRESSION: 1. Endotracheal tube was removed. 2. Mild improvement in infiltrates. Electronically signed by: Jerome Vasquez MD (09/03/2019 8:07 AM) [id number]
[2019-09-03] MEDS: LIDOCAINE (700MG/PATCH) PATCH. TD SCH (08:44)
[2019-09-03] MEDS: CEFEPIME HCL IV Push 2 GM VIAL. IVP SCH ×2 (08:44→21:28)
[2019-09-03] MEDS: PANTOPRAZOLE IV PUSH 40 MG VIAL. IVP SCH (08:45)
[2019-09-03] MEDS: GABAPENTIN 400 MG CAPSULE. PO SCH ×2 (09:00→21:00)
[2019-09-03] MEDS: traMADol 50 MG TABLET PO SCH ×2 (09:00→21:00)
[2019-09-03] MEDS: COLESTIPOL HCL 1 GM TABLET PO SCH ×2 (09:11→21:29)
[2019-09-03] MEDS: IV NORMAL SALINE 1000ML BAG 1,000 ML IV SCH (10:05)
[2019-09-03 11:00] VITALS: BP 166/75
[2019-09-03] MEDS ORDERED: POLYVINYL ALCOHOL 1.4% OPHTH SOLUTION 15ML BOTTLE. OU PRN (11:30)
--- NOTE | 2019-09-03 11:38 | PDOC ---
PULMONARY PROGRESS NOTES Subjective no soa. extubated 09/01/2019, remains on N/C no overnight concerns from nursing, some nausea this am Vitals Vital Signs Date Time Temp Pulse Resp B/P (MAP) Pulse Ox O2 Delivery O2 Flow Rate FiO2 09/03/19 09:00 20 98 Nasal Cannula 2.0 09/03/19 07:00 97.9 75 171/78 (109) 97.9 Comments Visual exam done no respiratory distress, extubated on N/C no JVD, no leg edema, no rash General: Alert, No acute distress Labs Laboratory Tests Test 09/01/19 11:55 09/01/19 11:59 09/01/19 16:50 09/02/19 05:40 O2 Saturation 98 % (92-99) Arterial Blood pH 7.44 (7.35-7.45) Arterial Blood pCO2 at Patient Temp 48 mmHg (35-46) Arterial Blood pO2 at Patient Temp 121 mmHg (65-108) Arterial Blood pO2 (Temp corrected) mmHg Arterial Blood HCO3 32 mmol/L (21-28) Arterial Blood Base Excess 7 mmol/L (-3-3) FiO2 40 Glucose (Fingerstick) 115 mg/dL (70-99) 121 mg/dL (70-99) White Blood Count 9.3 x10^3/uL (4.0-11.0) Red Blood Count 3.48 x10^6/uL (3.50-5.40) Hemoglobin 9.8 g/dL (12.0-15.5) Hematocrit 29.4 % (36.0-47.0) Mean Corpuscular Volume 84 fL (79-100) Mean Corpuscular Hemoglobin 28 pg (25-35) Mean Corpuscular Hemoglobin Concent 33 g/dL (31-37) Red Cell Distribution Width 12.3 % (11.5-14.5) Platelet Count 495 x10^3/uL (140-400) Neutrophils (%) (Auto) 80 % (31-73) Lymphocytes (%) (Auto) 8 % (24-48) Monocytes (%) (Auto) 10 % (0-9) Eosinophils (%) (Auto) 1 % (0-3) Basophils (%) (Auto) 1 % (0-3) Neutrophils # (Auto) 7.5 x10^3/uL (1.8-7.7) Lymphocytes # (Auto) 0.8 x10^3/uL (1.0-4.8) Monocytes # (Auto) 1.0 x10^3/uL (0.0-1.1) Eosinophils # (Auto) 0.1 x10^3/uL (0.0-0.7) Basophils # (Auto) 0.1 x10^3/uL (0.0-0.2) Sodium Level 147 mmol/L (136-145) Potassium Level 2.8 mmol/L (3.5-5.1) Chloride Level 110 mmol/L (98-107) Carbon Dioxide Level 30 mmol/L (21-32) Anion Gap 7 (6-14) Blood Urea Nitrogen 10 mg/dL (7-20) Creatinine 0.4 mg/dL (0.6-1.0) Estimated GFR (Cockcroft-Gault) 160.2 Glucose Level 101 mg/dL (70-99) Calcium Level 8.5 mg/dL (8.5-10.1) Test 09/02/19 11:32 09/02/19 17:15 09/03/19 02:16 09/03/19 11:27 Glucose (Fingerstick) 107 mg/dL (70-99) 94 mg/dL (70-99) 86 mg/dL (70-99) 101 mg/dL (70-99) Laboratory Tests Test 09/02/19 17:15 09/03/19 02:16 09/03/19 11:27 Glucose (Fingerstick) 94 mg/dL (70-99) 86 mg/dL (70-99) 101 mg/dL (70-99) Medications Active Scripts Medications Dose Route/Sig Max Daily Dose Days Date Category Dose Instructions Pyridium (Phenazopyridine Hcl) 200 Mg Tablet 1 Tab PO TID 3 04/16/19 Rx Ciprofloxacin Hcl 500 Mg Tablet 1 Tab PO BID 04/16/19 Rx Lidocaine PATCH (Lidocaine) 1 Each Adh..patch 1 Patch TD DAILY 04/16/19 Rx Metoprolol Tartrate 25 Mg Tablet 25 Mg PO BID 04/15/19 Reported Fiorinal 50-325-40 Mg Capsule (Butalbital/Aspirin/Caffeine) 1 Each Capsule 1 Each PO Q6HRS PRN 03/27/19 Rx Zofran (Ondansetron Hcl) 4 Mg Tablet 4 Mg PO PRN TID PRN 03/27/19 Rx nausea/vomiting Tylenol (Acetaminophen) 325 Mg Tablet 650 Mg PO PRN Q6HRS PRN 30 03/06/19 Rx Pantoprazole Sodium (Pantoprazole Sodium) 40 Mg Tablet.dr 40 Mg PO DAILYAC 30 03/06/19 Rx Dicyclomine Hcl 10 Mg Capsule 1 Cap PO BID PRN 11/27/18 Reported Imitrex (Sumatriptan Succinate) 100 Mg Tablet 1 Tab PO BID PRN 11/27/18 Reported Hydroxyzine Hcl 25 Mg Tablet 1 Tab PO DAILY PRN 11/27/18 Reported Diclofenac Sodium 75 Mg Tablet.dr 1 Tab PO BID 11/27/18 Reported Zolpidem Tartrate 10 Mg Tablet 10 Mg PO HS 11/27/18 Reported Lisinopril 10 Mg Tablet 1 Tab PO HS 06/14/18 Reported Gabapentin 800 Mg Tablet 1 Tab PO BID 06/17/14 Reported Cyclobenzaprine Hcl 10 Mg Tablet 1 Tab PO BID PRN 06/17/14 Reported Colestipol Hcl 1 Gm Tablet 1 Gm PO BID 06/17/14 Reported Tramadol Hcl 50 Mg Tablet 1 Tab PO BID 06/17/14 Reported Comments CXR 08/30 reviewed bilateral patchy infiltrates, mild progression Impression . 1. Acute Respiratory failure due to COVID19 Pneumonia/ ARDS--improving 2. Pneumonia, mycoplasma positive/ in addition to COVID-19 pneumonia--improving 3. Acute respiratory failure multifactorial/ARDS-improving 4. COVID-19 positive test (U07.1, COVID-19) with Acute Respiratory Distress Syndrome (ARDS) (J80, ARDS) (If respiratory failure or sepsis present, add as separate assessment) 5. Protein malnutrition present upon admission, severe Plan . extubated on 09/01/2019, continue N/C oxygen off Zithromax, Plaquenil. Labs reviewed Continue current support follow labs, chest x-ray d/w RN/RT speech eval/ oral nutrition AMADOU SANTOS MD Sep 03, 2019 11:38
--- NOTE | 2019-09-03 12:22 | PDOC ---
[facility] [facility] PROGRESS NOTE Chief Complaint Chief Complaint Acute hypoxic resp failure requiring intubation and mechanical ventilation secondary to COVID 19 penumonia/ ards status post extubation on 09/01/2019 Severe acute pneumonia with New bilateral perihilar and peripheral 5 lobe groundglass lung infiltrates are seen most likely coinfection with mycoplasma Sepsis secondary to the above Acute febrile illness secondary to the above. GERD Acute kidney injury Asthma history of essential Hypertension Dehydration Severe malnutrition Acute Respiratory failure due to COVID19 Pneumonia/ ARDS Mycoplasma positive/ in addition to COVID-19 pneumonia--improving Acute respiratory failure multifactorial/ARDS-improving COVID-19 positive test (U07.1, COVID-19) with Acute Respiratory Distress Syndrome (ARDS) (J80, ARDS) Protein malnutrition present upon admission, severe History of Present Illness History of Present Illness [id number] Patient seen and examined in respiratory isolation Covid 19 unit Chart reviewed Discussed with RN She is very ill 09/02/2019 Patient nauseous today, no acute events reported overnight, case discussed with nursing staff patient in no acute distress no complaints during my visit 09/01/2019 No acute events reported overnight, case discussed with nursing staff patient in no acute distress no complaints during my visit off presors seems to be improving 08/31/2019 No acute events reported overnight, case discussed with nursing staff patient in no acute distress during my visit 08/30/2019 Continue to be on AC mode with fio2 at 40% and 6 of peep, no acute events overnight, still requiring a lot of support, remains critically stable. 08/29/2019 Patient remains critically stable, oxygen requirements at 50% discussed with nursing staff at bedside [id number] Patient seen and examined in the ICU She remains mechanically ventilated Assist-control//400/50% with 8 of PEEP Sedated with Versed and fentanyl OG feeds running She is Covid 19 positive [id number] Patient seen and examined in the ICU She is extremely critically ill Covid testing is positive Reviewed chest x-ray and CAT scan Discussed with RN Reviewed chart She is on assist-control 18/400/50% Sedated with Versed and fentanyl Also has a maintenance IV [id number] Patient is mechanically ventilated assist-control/18/400/50% Her Covid 19 testing now is positive Chart reviewed Discussed with RN [id number] Patient seen and examined Discussed with RN I called the pharmacy to start some azithromycin because she is now mycoplasma positive Mechanically ventilated Before meals/18/450/50% Chart reviewed Prognosis guarded Vitals/I&O Vitals/I&O: Vital Signs Date Time Temp Pulse Resp B/P (MAP) Pulse Ox O2 Delivery O2 Flow Rate FiO2 09/03/19 11:00 98.0 69 166/75 (105) 99 Nasal Cannula 2.0 98.0 09/03/19 09:00 20 I & O 09/02/19 09/02/19 09/03/19 15:00 23:00 07:00 Intake Total 200 ml Output Total 400 ml 375 ml Balance -200 ml -375 ml Physical Exam General: moderate distress, Other Heart: Regular rate (sedated and intubated), Normal S1 Lungs: Crackles, Other (wheezing) Abdomen: Soft Extremities: No cyanosis Skin: No rashes, No breakdown Labs Labs: Laboratory Tests Test 09/02/19 17:15 09/03/19 02:16 09/03/19 11:27 Glucose (Fingerstick) 94 mg/dL (70-99) 86 mg/dL (70-99) 101 mg/dL (70-99) Assessment and Plan Assessmemt and Plan Problems Medical Problems: (1) Hypotension Status: Acute (2) Hypoxia Status: Acute (3) Right-sided chest pain Status: Acute (4) Suspected 2019-nCoV infection Status: Acute Acute hypoxic resp failure requiring intubation and mechanical ventilation secondary to COVID 19 penumonia/ ards status post extubation on 09/01/2019 Severe acute pneumonia with New bilateral perihilar and peripheral 5 lobe groundglass lung infiltrates are seen most likely coinfection with mycoplasma Sepsis secondary to the above Acute febrile illness secondary to the above. GERD Acute kidney injury Asthma history of essential Hypertension Dehydration Severe malnutrition Acute Respiratory failure due to COVID19 Pneumonia/ ARDS Mycoplasma positive/ in addition to COVID-19 pneumonia--improving Acute respiratory failure multifactorial/ARDS-improving COVID-19 positive test (U07.1, COVID-19) with Acute Respiratory Distress Syndrome (ARDS) (J80, ARDS) Protein malnutrition present upon admission, severe Plan IV antibiotics are completed Duo nebs Home meds DVT prophylaxis Full code Appreciate subspecialist input Continue current support follow labs, chest x-ray d/w RN/RT speech eval/ oral nutrition Trend labs Comment Review of Relevant I have reviewed the following items tori (where applicable) has been applied. Medications: Current Medications Medications (Trade) Dose Ordered Sig/Eder Route PRN Reason Start Time Stop Time Status Last Admin Dose Admin Ketorolac Tromethamine (Toradol 30mg Vial) 30 mg PRN Q6HRS PRN IVP PAIN 09/03/19 03:30 09/08/19 03:29 09/03/19 10:05 WESLY BOSS III DO Sep 03, 2019 12:22
[2019-09-03] MEDS: AMINO AC 3%/ELECTROLYTE/GLYCER 1,000 ML IV SCH (14:25)
--- NOTE | 2019-09-03 14:52 | EKG ---
[facility] [address] [place] [address] Test Date: 2019-09-03 Test Time: 14:34:04 Pat Name: EDUARDO TORRES Department: Room: [facility] Gender: F Environmental Project Manager: RICHARD : 1955 Requested By: PRIMITIVO MÉNDEZ Order Number: [id number] Reading MD: Harrison Broderick MD Measurements Intervals Pillager Rate: 145 P: VA: QRS: -21 QRSD: 76 T: 108 QT: 302 QTc: 472 Interpretive Statements ATRIAL FIBRILLATION WITH RVR NON-SPECIFIC ST/T CHANGES Electronically Signed On 09-04-2019 9:23:25 CDT by Harrison Broderick MD
[2019-09-03] MEDS ORDERED: IV NORMAL SALINE 500ML BAG 500 ML IV STA (14:55)
[2019-09-03] MEDS ORDERED: DIGOXIN IV 500 MCG/2 ML AMPUL. IV STA (14:55)
[2019-09-03] MEDS ORDERED: MORPHINE SULFATE 2 MG/ML VIAL. IV PRN (15:00)
[2019-09-03] MEDS ORDERED: fentaNYL PF VIAL 100 MCG/2 ML VIAL IM ONE (15:00)
[2019-09-03] MEDS ORDERED: METOPROLOL TARTRATE 5 MG/5 ML VIAL. IVP ONE (15:00)
[2019-09-03 15:18] VITALS: BP 106/71
[2019-09-03] MEDS: ENOXAPARIN 40 MG/0.4 ML SYRINGE. SQ SCH (17:23)
[2019-09-03 19:00] VITALS: BP 157/77
[2019-09-03] MEDS: PATCH REMOVAL. MC SCH (21:00)
[2019-09-03 23:00] VITALS: BP 153/68
[2019-09-04] MEDS: AMINO AC 3%/ELECTROLYTE/GLYCER 1,000 ML IV SCH ×2 (01:20→11:57)
[2019-09-04 03:00] VITALS: BP 173/79
[2019-09-04] MEDS: ONDANSETRON PF 4 MG/2 ML VIAL. IVP PRN (04:23)
[2019-09-04 04:47] LABS: BASO # 0.1 x10^3/uL (0.0-0.2); BASO % 1 % (0-3); EOS # 0.1 x10^3/uL (0.0-0.7); EOS % 1 % (0-3); HEMATOCRIT 32.6 % (36.0-47.0); LYMPH # 1.3 x10^3/uL (1.0-4.8); LYMPH % 14 % (24-48); MEAN CORPUSCULAR HEMOGLOBIN 28 pg (25-35); MEAN CORPUSCULAR HGB CONC 34 g/dL (31-37); MEAN CORPUSCULAR VOLUME 82 fL (79-100); MONO # 1.1 x10^3/uL (0.0-1.1); MONO % 12 % (0-9); NEUT # 6.4 x10^3/uL (1.8-7.7); NEUT % 72 % (31-73); PLATELET COUNT 543 x10^3/uL (140-400); RED BLOOD COUNT 3.96 x10^6/uL (3.50-5.40); RED CELL DISTRIBUTION WIDTH 12.1 % (11.5-14.5)
[2019-09-04 04:56] LABS: CREATININE 0.5 mg/dL (0.6-1.0); GFR 123.8; POTASSIUM 3.4 mmol/L (3.5-5.1)
[2019-09-04] MEDS: KETOROLAC 30 MG/ML VIAL. IVP PRN (05:04)
[2019-09-04 07:00] VITALS: BP 178/92
[2019-09-04] MEDS: GABAPENTIN 400 MG CAPSULE. PO SCH ×2 (07:22→20:37)
[2019-09-04] MEDS: traMADol 50 MG TABLET PO SCH ×2 (07:22→21:00)
[2019-09-04] MEDS: COLESTIPOL HCL 1 GM TABLET PO SCH ×2 (07:23→20:37)
[2019-09-04] MEDS: INSULIN LISPRO 300 UNITS/3 ML VIAL. SQ SCH ×3 (07:55→17:00)
[2019-09-04] MEDS: PANTOPRAZOLE IV PUSH 40 MG VIAL. IVP SCH (08:08)
[2019-09-04] MEDS: LIDOCAINE (700MG/PATCH) PATCH. TD SCH (08:08)
[2019-09-04] MEDS: CEFEPIME HCL IV Push 2 GM VIAL. IVP SCH ×2 (08:08→20:36)
--- NOTE | 2019-09-04 08:50 | PDOC2 ---
AURORA GUTIERREZ COMPUTER CONSULTANT 09/04/19 0850: CARDIAC CONSULT DATE OF CONSULT Date of Consult DATE: 09/04/19 TIME: 08:35 REASON FOR CONSULT Reason for Consult: AFIB with RVR REFERRING PHYSICIAN Referring Physician: Dr. Cody SOURCE Source: Caregiver, Chart review, Patient HISTORY OF PRESENT ILLNESS HISTORY OF PRESENT ILLNESS This is a 64 yo female who presented secondary to chest pain, shortness of breath, cough, and fevers. COVID +. Went into AFIB with RVR yesterday afternoon, which prompted this consult. PAST MEDICAL HISTORY Past Medical History Cardiovascular: HTN, Other (heart murmur), HLP Pulmonary: No pertinent hx CENTRAL NERVOUS SYSTEM: Migraine GI: GERD, Peptic Ulcer disease, IBS Heme/Onc: No pertinent hx Hepatobiliary: Cholelithiasis Psych: No pertinent hx Musculoskeletal: Osteoarthritis, costochondritis Rheumatologic: Fibromyalgia Infectious disease: No pertinent hx ENT: Allergic Rhinitis Renal/: UTI Endocrine: Osteopenia Dermatology: Eczema (dermatitis) PAST SURGICAL HISTORY Past Surgical History Cholecystectomy (laparoscopic), Hysterectomy (BSO) FAMILY HISTORY Family History: Diabetes, Other (renal disease) SOCIAL HISTORY Social History Smoke: Quit ALCOHOL: occasional Drugs: None Lives: with Family CURRENT MEDICATIONS CURRENT MEDICATIONS Current Medications Medications (Trade) Dose Ordered Sig/Eder Route PRN Reason Start Time Stop Time Status Last Admin Dose Admin Amino Acids/ Glycerin/ Electrolytes 1,000 ml @ 75 mls/hr [id number] IV 09/03/19 12:00 09/03/19 14:25 Digoxin (Lanoxin) 500 mcg 1X STAT IV 09/03/19 14:55 09/03/19 14:56 DC 09/03/19 15:01 Sodium Chloride 500 ml @ 500 mls/hr 1X STAT IV 09/03/19 14:55 09/03/19 15:54 DC 09/03/19 14:55 Metoprolol Tartrate (Lopressor Vial) 5 mg 1X ONCE IVP 09/03/19 15:00 09/03/19 15:01 DC 09/03/19 15:25 Fentanyl Citrate (Fentanyl 2ml Vial) 50 mcg 1X ONCE IM 09/03/19 15:00 09/03/19 15:01 DC 09/03/19 15:06 ALLERGIES ALLERGIES: Coded Allergies: onion (Verified Allergy, Intermediate, 03/08/19) phenytoin (Verified Allergy, Intermediate, rash, 03/05/19) ROS Review of System 14 point ROS conducted with pertinent positives noted above in hPI PHYSICAL EXAM General: Alert, Oriented X3, Cooperative, No acute distress HEENT: Atraumatic Heart: Regular rate Extremities: No edema Skin: No significant lesion Neuro: Normal speech Psych/Mental Status: Mental status NL VITALS/I&O VITALS/I&O: Vital Signs Date Time Temp Pulse Resp B/P (MAP) Pulse Ox O2 Delivery O2 Flow Rate FiO2 09/04/19 07:00 97.6 69 178/92 (120) 100 Nasal Cannula 2.0 97.6 09/03/19 15:18 20 I & O 09/03/19 09/03/19 09/04/19 15:00 23:00 07:00 Intake Total 450 ml 500 ml Output Total 450 ml 1000 ml Balance 0 ml -500 ml LABS Lab: Laboratory Tests Test 09/03/19 11:27 09/03/19 18:21 09/04/19 00:33 09/04/19 04:30 Glucose (Fingerstick) 101 mg/dL (70-99) H 83 mg/dL (70-99) 105 mg/dL (70-99) H White Blood Count 9.0 x10^3/uL (4.0-11.0) Red Blood Count 3.96 x10^6/uL (3.50-5.40) Hemoglobin 11.0 g/dL (12.0-15.5) L Hematocrit 32.6 % (36.0-47.0) L Mean Corpuscular Volume 82 fL (79-100) Mean Corpuscular Hemoglobin 28 pg (25-35) Mean Corpuscular Hemoglobin Concent 34 g/dL (31-37) Red Cell Distribution Width 12.1 % (11.5-14.5) Platelet Count 543 x10^3/uL (140-400) H Neutrophils (%) (Auto) 72 % (31-73) Lymphocytes (%) (Auto) 14 % (24-48) L Monocytes (%) (Auto) 12 % (0-9) H Eosinophils (%) (Auto) 1 % (0-3) Basophils (%) (Auto) 1 % (0-3) Neutrophils # (Auto) 6.4 x10^3/uL (1.8-7.7) Lymphocytes # (Auto) 1.3 x10^3/uL (1.0-4.8) Monocytes # (Auto) 1.1 x10^3/uL (0.0-1.1) Eosinophils # (Auto) 0.1 x10^3/uL (0.0-0.7) Basophils # (Auto) 0.1 x10^3/uL (0.0-0.2) Sodium Level 138 mmol/L (136-145) Potassium Level 3.4 mmol/L (3.5-5.1) L Chloride Level 101 mmol/L (98-107) Carbon Dioxide Level 33 mmol/L (21-32) H Anion Gap 4 (6-14) L Blood Urea Nitrogen 14 mg/dL (7-20) Creatinine 0.5 mg/dL (0.6-1.0) L Estimated GFR (Cockcroft-Gault) 123.8 Glucose Level 107 mg/dL (70-99) H Calcium Level 9.0 mg/dL (8.5-10.1) Test 09/04/19 06:39 Glucose (Fingerstick) 105 mg/dL (70-99) H Laboratory Tests 09/04/19 04:30 Laboratory Tests 09/04/19 04:30 ECHOCARDIOGRAM ECHOCARDIOGRAM <Conclusion> The left ventricular systolic function is normal and the ejection fraction is within normal range. The Ejection Fraction is >55%. There is normal LV segmental wall motion. DATE: 11/28/18 1332 STRESS TEST STRESS TEST Conclusion 1. Good exercise tolerance with the patient walking for 7 minutes and 42 seconds on a Phil protocol. 2. Episodes of chest discomfort with exertion. 3. No EKG evidence of stressed induced ischemia. 4. Nuclear imaging shows no reversible ischemia or infarct. 5. Left ventricular systolic function is normal with an ejection fraction of greater than 70%. 6. Moderately low risk treadmill nuclear stress test with no evidence of ischemi a and a normal ejection fraction. DATE: 04/06/19 1127 ASSESSMENT/PLAN ASSESSMENT/PLAN 1. Acute respiratory failure, PNA/ARDS; COVID +. Extubated 08/31. On NC 2. AFIB with RVR in setting of above. Converted back to SR. Echo 12/15 with preserved LV systolic function. Treadmill MPI 04/17 without evidence of ischemia or infarct. 3. Hypertension; labile 4. Hyperlipidemia 5. DARA; resolved 6. Hypokalemia Recommendations Replace K TSH, Mg ASA when able to take PO No OAC at this time as duration of AFIB very brief is setting of acute illness/COVID Outpatient event monitor to guide therapy. Routine outpatient echo to assess LV systolic function Ongoing support WLILIE ZVAALETA MD 09/04/19 1301: CARDIAC CONSULT ASSESSMENT/PLAN ASSESSMENT/PLAN Pt. seen and examined. Agree with above RESIDENT CARE MANAGER RN Note. Supportive care. Thanks AURORA GUTIERREZ APRN Sep 04, 2019 08:50 WILLIE ZAVALETA MD Sep 04, 2019 13:01
[2019-09-04 09:38] LABS: MAGNESIUM 1.8 mg/dL (1.8-2.4)
[2019-09-04 09:40] LABS: CHOLESTEROL/HDL RATIO 5.9
[2019-09-04 10:33] VITALS: BP 160/69
[2019-09-04] MEDS: METOPROLOL TARTRATE 5 MG/5 ML VIAL. IVP SCH ×2 (11:57→16:34)
--- NOTE | 2019-09-04 12:41 | PDOC ---
[employer] PROGRESS NOTE Chief Complaint Chief Complaint Acute hypoxic resp failure requiring intubation and mechanical ventilation secondary to COVID 19 penumonia/ ards status post extubation on 09/01/2019 Severe acute pneumonia with New bilateral perihilar and peripheral 5 lobe groundglass lung infiltrates are seen most likely coinfection with mycoplasma Sepsis secondary to the above Acute febrile illness secondary to the above. GERD Acute kidney injury Asthma history of essential Hypertension Dehydration Severe malnutrition Acute Respiratory failure due to COVID19 Pneumonia/ ARDS Mycoplasma positive/ in addition to COVID-19 pneumonia--improving Acute respiratory failure multifactorial/ARDS-improving COVID-19 positive test (U07.1, COVID-19) with Acute Respiratory Distress Syndrome (ARDS) (J80, ARDS) Protein malnutrition present upon admission, severe History of Present Illness History of Present Illness 09-04-2019 Patient seen and examined on the Covid-19 unit She remains in respiratory isolation Discussed with RN Chart reviewed [id number] Patient seen and examined in respiratory isolation Covid 19 unit Chart reviewed Discussed with RN She is very ill 09/02/2019 Patient nauseous today, no acute events reported overnight, case discussed with nursing staff patient in no acute distress no complaints during my visit 09/01/2019 No acute events reported overnight, case discussed with nursing staff patient in no acute distress no complaints during my visit off presors seems to be improving 08/31/2019 No acute events reported overnight, case discussed with nursing staff patient in no acute distress during my visit 08/30/2019 Continue to be on AC mode with fio2 at 40% and 6 of peep, no acute events overnight, still requiring a lot of support, remains critically stable. 08/29/2019 Patient remains critically stable, oxygen requirements at 50% discussed with nursing staff at bedside [id number] Patient seen and examined in the ICU She remains mechanically ventilated Assist-control/12/400/50% with 8 of PEEP Sedated with Versed and fentanyl OG feeds running She is Covid 19 positive [id number] Patient seen and examined in the ICU She is extremely critically ill Covid testing is positive Reviewed chest x-ray and CAT scan Discussed with RN Reviewed chart She is on assist-control 18/400/50% Sedated with Versed and fentanyl Also has a maintenance IV [id number] Patient is mechanically ventilated assist-control/18/400/50% Her Covid 19 testing now is positive Chart reviewed Discussed with RN [id number] Patient seen and examined Discussed with RN I called the pharmacy to start some azithromycin because she is now mycoplasma positive Mechanically ventilated Before meals/18/450/50% Chart reviewed Prognosis guarded Vitals/I&O Vitals/I&O: Vital Signs Date Time Temp Pulse Resp B/P (MAP) Pulse Ox O2 Delivery O2 Flow Rate FiO2 09/04/19 11:57 70 160/69 09/04/19 10:33 98.0 97 Nasal Cannula 2.0 98.0 09/03/19 15:18 20 I & O 09/03/19 09/03/19 09/04/19 15:00 23:00 07:00 Intake Total 450 ml 500 ml Output Total 450 ml 1000 ml Balance 0 ml -500 ml Physical Exam General: Alert, Oriented X3, Cooperative, No acute distress Heart: Regular rate Lungs: Crackles, Other (wheezing) Abdomen: Soft Extremities: No edema Skin: No significant lesion Labs Labs: Laboratory Tests Test 09/03/19 18:21 09/04/19 00:33 09/04/19 04:30 09/04/19 06:39 Glucose (Fingerstick) 83 mg/dL (70-99) 105 mg/dL (70-99) 105 mg/dL (70-99) White Blood Count 9.0 x10^3/uL (4.0-11.0) Red Blood Count 3.96 x10^6/uL (3.50-5.40) Hemoglobin 11.0 g/dL (12.0-15.5) Hematocrit 32.6 % (36.0-47.0) Mean Corpuscular Volume 82 fL (79-100) Mean Corpuscular Hemoglobin 28 pg (25-35) Mean Corpuscular Hemoglobin Concent 34 g/dL (31-37) Red Cell Distribution Width 12.1 % (11.5-14.5) Platelet Count 543 x10^3/uL (140-400) Neutrophils (%) (Auto) 72 % (31-73) Lymphocytes (%) (Auto) 14 % (24-48) Monocytes (%) (Auto) 12 % (0-9) Eosinophils (%) (Auto) 1 % (0-3) Basophils (%) (Auto) 1 % (0-3) Neutrophils # (Auto) 6.4 x10^3/uL (1.8-7.7) Lymphocytes # (Auto) 1.3 x10^3/uL (1.0-4.8) Monocytes # (Auto) 1.1 x10^3/uL (0.0-1.1) Eosinophils # (Auto) 0.1 x10^3/uL (0.0-0.7) Basophils # (Auto) 0.1 x10^3/uL (0.0-0.2) Sodium Level 138 mmol/L (136-145) Potassium Level 3.4 mmol/L (3.5-5.1) Chloride Level 101 mmol/L (98-107) Carbon Dioxide Level 33 mmol/L (21-32) Anion Gap 4 (6-14) Blood Urea Nitrogen 14 mg/dL (7-20) Creatinine 0.5 mg/dL (0.6-1.0) Estimated GFR (Cockcroft-Gault) 123.8 Glucose Level 107 mg/dL (70-99) Calcium Level 9.0 mg/dL (8.5-10.1) Magnesium Level 1.8 mg/dL (1.8-2.4) Triglycerides Level 145 mg/dL (0-150) Cholesterol Level 188 mg/dL (0-200) LDL Cholesterol, Calculated 127 mg/dL (0-100) VLDL Cholesterol, Calculated 29 mg/dL (0-40) Non-HDL Cholesterol Calculated 156 mg/dL (0-129) HDL Cholesterol 32 mg/dL (40-60) Cholesterol/HDL Ratio 5.9 Thyroid Stimulating Hormone (TSH) 1.226 uIU/mL (0.358-3.74) Test 09/04/19 11:36 Glucose (Fingerstick) 106 mg/dL (70-99) Assessment and Plan Assessmemt and Plan Problems Medical Problems: (1) Hypotension Status: Acute (2) Hypoxia Status: Acute (3) Right-sided chest pain Status: Acute (4) Suspected 2019-nCoV infection Status: Acute Acute hypoxic resp failure requiring intubation and mechanical ventilation secondary to COVID 19 penumonia/ ards status post extubation on 09/01/2019 Severe acute pneumonia with New bilateral perihilar and peripheral 5 lobe groundglass lung infiltrates are seen most likely coinfection with mycoplasma Sepsis secondary to the above Acute febrile illness secondary to the above. GERD Acute kidney injury Asthma history of essential Hypertension Dehydration Severe malnutrition Diarrhea Acute Respiratory failure due to COVID19 Pneumonia/ ARDS Mycoplasma positive/ in addition to COVID-19 pneumonia--improving Acute respiratory failure multifactorial/ARDS-improving COVID-19 positive test (U07.1, COVID-19) with Acute Respiratory Distress Syndrome (ARDS) (J80, ARDS) Protein malnutrition present upon admission, severe Plan IV antibiotics are completed Rectal tube Duo nebs Home meds DVT prophylaxis Full code Appreciate subspecialist input Continue current support follow labs, chest x-ray d/w RN/RT speech eval/ oral nutrition Trend labs Comment Review of Relevant I have reviewed the following items tori (where applicable) has been applied. Medications: Current Medications Medications (Trade) Dose Ordered Sig/Eder Route PRN Reason Start Time Stop Time Status Last Admin Dose Admin Digoxin (Lanoxin) 500 mcg 1X STAT IV 09/03/19 14:55 09/03/19 14:56 DC 09/03/19 15:01 Sodium Chloride 500 ml @ 500 mls/hr 1X STAT IV 09/03/19 14:55 09/03/19 15:54 DC 09/03/19 14:55 Metoprolol Tartrate (Lopressor Vial) 5 mg 1X ONCE IVP 09/03/19 15:00 09/03/19 15:01 DC 09/03/19 15:25 Fentanyl Citrate (Fentanyl 2ml Vial) 50 mcg 1X ONCE IM 09/03/19 15:00 09/03/19 15:01 DC 09/03/19 15:06 Metoprolol Tartrate (Lopressor Vial) 5 mg Q6HRS IVP 09/04/19 12:00 09/04/19 11:57 WESLY BOSS III DO Sep 04, 2019 12:41
[2019-09-04] MEDS: POTASSIUM CHLORIDE 10MEQ 100 ML IV SCH ×2 (13:09→13:30)
[2019-09-04 14:47] VITALS: BP 174/83
[2019-09-04] MEDS: LOPERAMIDE 2 MG CAPSULE PO PRN (14:55)
[2019-09-04] MEDS: ENOXAPARIN 40 MG/0.4 ML SYRINGE. SQ SCH (16:00)
--- NOTE | 2019-09-04 17:10 | PDOC ---
PULMONARY PROGRESS NOTES Subjective no soa. extubated 09/01/2019, remains on N/C Patient on 3 L. Not more short of air. Working with speech Vitals Vital Signs Date Time Temp Pulse Resp B/P (MAP) Pulse Ox O2 Delivery O2 Flow Rate FiO2 09/04/19 16:34 76 174/83 09/04/19 14:47 98.4 94 Nasal Cannula 2.0 98.4 09/03/19 15:18 20 General: Alert, No acute distress Lungs: Clear, Crackles, Other (wheezing) Abdomen: Soft Neuro Exam: Alert Skin: Warm Labs Laboratory Tests Test 09/02/19 17:15 09/03/19 02:16 09/03/19 11:27 09/03/19 18:21 Glucose (Fingerstick) 94 mg/dL (70-99) 86 mg/dL (70-99) 101 mg/dL (70-99) 83 mg/dL (70-99) Test 09/04/19 00:33 09/04/19 04:30 09/04/19 06:39 09/04/19 11:36 Glucose (Fingerstick) 105 mg/dL (70-99) 105 mg/dL (70-99) 106 mg/dL (70-99) White Blood Count 9.0 x10^3/uL (4.0-11.0) Red Blood Count 3.96 x10^6/uL (3.50-5.40) Hemoglobin 11.0 g/dL (12.0-15.5) Hematocrit 32.6 % (36.0-47.0) Mean Corpuscular Volume 82 fL (79-100) Mean Corpuscular Hemoglobin 28 pg (25-35) Mean Corpuscular Hemoglobin Concent 34 g/dL (31-37) Red Cell Distribution Width 12.1 % (11.5-14.5) Platelet Count 543 x10^3/uL (140-400) Neutrophils (%) (Auto) 72 % (31-73) Lymphocytes (%) (Auto) 14 % (24-48) Monocytes (%) (Auto) 12 % (0-9) Eosinophils (%) (Auto) 1 % (0-3) Basophils (%) (Auto) 1 % (0-3) Neutrophils # (Auto) 6.4 x10^3/uL (1.8-7.7) Lymphocytes # (Auto) 1.3 x10^3/uL (1.0-4.8) Monocytes # (Auto) 1.1 x10^3/uL (0.0-1.1) Eosinophils # (Auto) 0.1 x10^3/uL (0.0-0.7) Basophils # (Auto) 0.1 x10^3/uL (0.0-0.2) Sodium Level 138 mmol/L (136-145) Potassium Level 3.4 mmol/L (3.5-5.1) Chloride Level 101 mmol/L (98-107) Carbon Dioxide Level 33 mmol/L (21-32) Anion Gap 4 (6-14) Blood Urea Nitrogen 14 mg/dL (7-20) Creatinine 0.5 mg/dL (0.6-1.0) Estimated GFR (Cockcroft-Gault) 123.8 Glucose Level 107 mg/dL (70-99) Calcium Level 9.0 mg/dL (8.5-10.1) Magnesium Level 1.8 mg/dL (1.8-2.4) Triglycerides Level 145 mg/dL (0-150) Cholesterol Level 188 mg/dL (0-200) LDL Cholesterol, Calculated 127 mg/dL (0-100) VLDL Cholesterol, Calculated 29 mg/dL (0-40) Non-HDL Cholesterol Calculated 156 mg/dL (0-129) HDL Cholesterol 32 mg/dL (40-60) Cholesterol/HDL Ratio 5.9 Thyroid Stimulating Hormone (TSH) 1.226 uIU/mL (0.358-3.74) Test 09/04/19 16:36 Glucose (Fingerstick) 96 mg/dL (70-99) Laboratory Tests Test 09/03/19 18:21 09/04/19 00:33 09/04/19 04:30 09/04/19 06:39 Glucose (Fingerstick) 83 mg/dL (70-99) 105 mg/dL (70-99) 105 mg/dL (70-99) White Blood Count 9.0 x10^3/uL (4.0-11.0) Red Blood Count 3.96 x10^6/uL (3.50-5.40) Hemoglobin 11.0 g/dL (12.0-15.5) Hematocrit 32.6 % (36.0-47.0) Mean Corpuscular Volume 82 fL (79-100) Mean Corpuscular Hemoglobin 28 pg (25-35) Mean Corpuscular Hemoglobin Concent 34 g/dL (31-37) Red Cell Distribution Width 12.1 % (11.5-14.5) Platelet Count 543 x10^3/uL (140-400) Neutrophils (%) (Auto) 72 % (31-73) Lymphocytes (%) (Auto) 14 % (24-48) Monocytes (%) (Auto) 12 % (0-9) Eosinophils (%) (Auto) 1 % (0-3) Basophils (%) (Auto) 1 % (0-3) Neutrophils # (Auto) 6.4 x10^3/uL (1.8-7.7) Lymphocytes # (Auto) 1.3 x10^3/uL (1.0-4.8) Monocytes # (Auto) 1.1 x10^3/uL (0.0-1.1) Eosinophils # (Auto) 0.1 x10^3/uL (0.0-0.7) Basophils # (Auto) 0.1 x10^3/uL (0.0-0.2) Sodium Level 138 mmol/L (136-145) Potassium Level 3.4 mmol/L (3.5-5.1) Chloride Level 101 mmol/L (98-107) Carbon Dioxide Level 33 mmol/L (21-32) Anion Gap 4 (6-14) Blood Urea Nitrogen 14 mg/dL (7-20) Creatinine 0.5 mg/dL (0.6-1.0) Estimated GFR (Cockcroft-Gault) 123.8 Glucose Level 107 mg/dL (70-99) Calcium Level 9.0 mg/dL (8.5-10.1) Magnesium Level 1.8 mg/dL (1.8-2.4) Triglycerides Level 145 mg/dL (0-150) Cholesterol Level 188 mg/dL (0-200) LDL Cholesterol, Calculated 127 mg/dL (0-100) VLDL Cholesterol, Calculated 29 mg/dL (0-40) Non-HDL Cholesterol Calculated 156 mg/dL (0-129) HDL Cholesterol 32 mg/dL (40-60) Cholesterol/HDL Ratio 5.9 Thyroid Stimulating Hormone (TSH) 1.226 uIU/mL (0.358-3.74) Test 09/04/19 11:36 09/04/19 16:36 Glucose (Fingerstick) 106 mg/dL (70-99) 96 mg/dL (70-99) Medications Active Scripts Medications Dose Route/Sig Max Daily Dose Days Date Category Dose Instructions Pyridium (Phenazopyridine Hcl) 200 Mg Tablet 1 Tab PO TID 3 04/16/19 Rx Ciprofloxacin Hcl 500 Mg Tablet 1 Tab PO BID 04/16/19 Rx Lidocaine PATCH (Lidocaine) 1 Each Adh..patch 1 Patch TD DAILY 04/16/19 Rx Metoprolol Tartrate 25 Mg Tablet 25 Mg PO BID 04/15/19 Reported Fiorinal 50-325-40 Mg Capsule (Butalbital/Aspirin/Caffeine) 1 Each Capsule 1 Each PO Q6HRS PRN 03/27/19 Rx Zofran (Ondansetron Hcl) 4 Mg Tablet 4 Mg PO PRN TID PRN 03/27/19 Rx nausea/vomiting Tylenol (Acetaminophen) 325 Mg Tablet 650 Mg PO PRN Q6HRS PRN 30 03/06/19 Rx Pantoprazole Sodium (Pantoprazole Sodium) 40 Mg Tablet.dr 40 Mg PO DAILYAC 30 03/06/19 Rx Dicyclomine Hcl 10 Mg Capsule 1 Cap PO BID PRN 11/27/18 Reported Imitrex (Sumatriptan Succinate) 100 Mg Tablet 1 Tab PO BID PRN 11/27/18 Reported Hydroxyzine Hcl 25 Mg Tablet 1 Tab PO DAILY PRN 11/27/18 Reported Diclofenac Sodium 75 Mg Tablet.dr 1 Tab PO BID 11/27/18 Reported Zolpidem Tartrate 10 Mg Tablet 10 Mg PO HS 11/27/18 Reported Lisinopril 10 Mg Tablet 1 Tab PO HS 06/14/18 Reported Gabapentin 800 Mg Tablet 1 Tab PO BID 06/17/14 Reported Cyclobenzaprine Hcl 10 Mg Tablet 1 Tab PO BID PRN 06/17/14 Reported Colestipol Hcl 1 Gm Tablet 1 Gm PO BID 06/17/14 Reported Tramadol Hcl 50 Mg Tablet 1 Tab PO BID 06/17/14 Reported Comments CXR / reviewed bilateral patchy infiltrates, mild progression Impression . 1. Acute Respiratory failure due to COVID19 Pneumonia/ ARDS--improving 2. Pneumonia, mycoplasma positive/ in addition to COVID-19 pneumonia--improving 3. Acute respiratory failure multifactorial/ARDS-improving 4. COVID-19 positive test (U07.1, COVID-19) with Acute Respiratory Distress Syndrome (ARDS) (J80, ARDS) (If respiratory failure or sepsis present, add as separate assessment) 5. Protein malnutrition present upon admission, severe Plan . Advance diet per speech extubated on 09/01/2019, continue N/C oxygen off Zithromax, Plaquenil. Labs reviewed Continue current support follow labs, chest x-ray d/w RN/RT JOSE CARLOS ROACH MD Sep 04, 2019 17:09
[2019-09-04 19:00] VITALS: BP 155/85
[2019-09-04] MEDS: PATCH REMOVAL. MC SCH (20:38)
[2019-09-04 23:00] VITALS: BP 164/78
[2019-09-05] MEDS: ONDANSETRON PF 4 MG/2 ML VIAL. IVP PRN ×2 (00:48→06:43)
[2019-09-05] MEDS: METOPROLOL TARTRATE 5 MG/5 ML VIAL. IVP SCH ×2 (00:49→06:21)
[2019-09-05 03:00] VITALS: BP 148/73
[2019-09-05] MEDS: AMINO AC 3%/ELECTROLYTE/GLYCER 1,000 ML IV SCH (03:30)
[2019-09-05] MEDS: PANTOPRAZOLE IV PUSH 40 MG VIAL. IVP SCH (06:21)
[2019-09-05 07:00] VITALS: BP 140/69
[2019-09-05] MEDS: INSULIN LISPRO 300 UNITS/3 ML VIAL. SQ SCH ×2 (07:35→11:39)
[2019-09-05] MEDS: LIDOCAINE (700MG/PATCH) PATCH. TD SCH (08:13)
[2019-09-05] MEDS: LOPERAMIDE 2 MG CAPSULE PO PRN (08:13)
[2019-09-05] MEDS: ASPIRIN ENTERIC COATED 81 MG TABLET.DR. PO SCH (08:13)
[2019-09-05] MEDS: COLESTIPOL HCL 1 GM TABLET PO SCH ×2 (08:14→20:50)
[2019-09-05] MEDS: CEFEPIME HCL IV Push 2 GM VIAL. IVP SCH ×2 (08:14→20:49)
[2019-09-05] MEDS: GABAPENTIN 400 MG CAPSULE. PO SCH ×2 (08:14→20:51)
[2019-09-05] MEDS: ENOXAPARIN 40 MG/0.4 ML SYRINGE. SQ SCH (08:14)
[2019-09-05] MEDS: traMADol 50 MG TABLET PO SCH ×2 (08:14→20:49)
--- NOTE | 2019-09-05 08:32 | RAD ---
PORTABLE CHEST 1V Clinical Indication: Respiratory failure Comparison: AP chest, 2 days ago. Findings: Right PICC tip in distal SVC. The cardiomediastinal silhouette is stable. Diffuse disorganized parenchymal opacities are mildly improved. There is no pneumothorax. No pleural effusion is appreciated. No acute bone abnormality. IMPRESSION: Diffuse parenchymal opacities are mildly improved. Electronically signed by: Jordan Salinas MD (09/05/2019 8:29 AM) [id number]
--- NOTE | 2019-09-05 09:10 | PDOC ---
AURORA GUTIERREZ [employer] ENGINEER 09/05/19 0910: CARDIO Progress Notes Date and Time Date of Service 09/05/19 Time of Evaluation 1010 Subjective Subjective: No Chest Pain, No Palpitations, No Dizziness Vitals Vitals Vital Signs Date Time Temp Pulse Resp B/P (MAP) Pulse Ox O2 Delivery O2 Flow Rate FiO2 09/05/19 08:14 96 Room Air 2.0 09/05/19 07:00 97.8 55 20 140/69 (92) 97.8 Weight Weight [ ] Input and Output Intake and Output Intake and Output 09/05/19 06:59 Intake Total 50 ml Output Total 2000 ml Balance -1950 ml Intake Oral 50 ml Output Urine Total 2000 ml # Bowel Movements 1 Laboratory Labs Laboratory Tests Test 09/04/19 11:36 09/04/19 16:36 09/04/19 20:54 09/05/19 07:19 Glucose (Fingerstick) 106 mg/dL (70-99) 96 mg/dL (70-99) 96 mg/dL (70-99) 129 mg/dL (70-99) Microbiology Micro Microbiology 08/24/19 Urine Culture - Final, Complete 08/24/19 Urine Culture Result 1 (REUBEN) - Final, Complete 08/23/19 Blood Culture - Final, Complete NO GROWTH AFTER 5 DAYS Physical Exam HEENT: Neck Supple W Full Motion Chest: Symmetric LUNGS: Other (diminished bases) Heart: RRR Abdomen: Soft N/T Extremities: No Edema Neurology: alert, oriented, follow commands Assessment Assessment 1. Acute respiratory failure, PNA/ARDS; COVID +. Extubated 08/31. On NC 2. AFIB with RVR in setting of above. Converted back to SR and has been maintaining. Echo 12/15 with preserved LV systolic function. Treadmill MPI 04/17 without evidence of ischemia or infarct. Event monitor 02/2019 without AFIB. 3. Hypertension; labile 4. Hyperlipidemia 5. DARA; resolved 6. Hypokalemia Recommendations Passed swallow evaluation, able to take oral Will convert Metoprolol to PO Start ASA therapy No OAC at this time as duration of AFIB very brief is setting of acute illness/COVID Ongoing support Outpatient echo Follow up with Dr. Broderick as scheduled. AXEL MAN MD 09/05/19 2560: CARDIO Progress Notes Assessment Assessment Patient seen and examined. Agree with HOG DRIVER's assessment and plan PAF maintaining SR ARF/Covid improving - pulm following Follow up with our office as scheduled AURORA GUTIERREZ APRN Sep 05, 2019 09:10 AXEL MAN MD Sep 05, 2019 18:40
[2019-09-05 10:50] VITALS: BP 138/71
--- NOTE | 2019-09-05 11:03 | PDOC ---
PULMONARY PROGRESS NOTES Subjective no soa. extubated 09/01/2019, remains on N/C Patient on 3 L. Not more short of air. Working with speech Vitals Vital Signs Date Time Temp Pulse Resp B/P (MAP) Pulse Ox O2 Delivery O2 Flow Rate FiO2 09/05/19 10:50 97.5 60 18 138/71 (93) 93 Room Air 97.5 09/05/19 08:14 2.0 General: Alert, No acute distress Lungs: Clear, Crackles, Other Abdomen: Soft Neuro Exam: Alert Skin: Warm Labs Laboratory Tests Test 09/03/19 11:27 09/03/19 18:21 09/04/19 00:33 09/04/19 04:30 Glucose (Fingerstick) 101 mg/dL (70-99) 83 mg/dL (70-99) 105 mg/dL (70-99) White Blood Count 9.0 x10^3/uL (4.0-11.0) Red Blood Count 3.96 x10^6/uL (3.50-5.40) Hemoglobin 11.0 g/dL (12.0-15.5) Hematocrit 32.6 % (36.0-47.0) Mean Corpuscular Volume 82 fL (79-100) Mean Corpuscular Hemoglobin 28 pg (25-35) Mean Corpuscular Hemoglobin Concent 34 g/dL (31-37) Red Cell Distribution Width 12.1 % (11.5-14.5) Platelet Count 543 x10^3/uL (140-400) Neutrophils (%) (Auto) 72 % (31-73) Lymphocytes (%) (Auto) 14 % (24-48) Monocytes (%) (Auto) 12 % (0-9) Eosinophils (%) (Auto) 1 % (0-3) Basophils (%) (Auto) 1 % (0-3) Neutrophils # (Auto) 6.4 x10^3/uL (1.8-7.7) Lymphocytes # (Auto) 1.3 x10^3/uL (1.0-4.8) Monocytes # (Auto) 1.1 x10^3/uL (0.0-1.1) Eosinophils # (Auto) 0.1 x10^3/uL (0.0-0.7) Basophils # (Auto) 0.1 x10^3/uL (0.0-0.2) Sodium Level 138 mmol/L (136-145) Potassium Level 3.4 mmol/L (3.5-5.1) Chloride Level 101 mmol/L (98-107) Carbon Dioxide Level 33 mmol/L (21-32) Anion Gap 4 (6-14) Blood Urea Nitrogen 14 mg/dL (7-20) Creatinine 0.5 mg/dL (0.6-1.0) Estimated GFR (Cockcroft-Gault) 123.8 Glucose Level 107 mg/dL (70-99) Calcium Level 9.0 mg/dL (8.5-10.1) Magnesium Level 1.8 mg/dL (1.8-2.4) Triglycerides Level 145 mg/dL (0-150) Cholesterol Level 188 mg/dL (0-200) LDL Cholesterol, Calculated 127 mg/dL (0-100) VLDL Cholesterol, Calculated 29 mg/dL (0-40) Non-HDL Cholesterol Calculated 156 mg/dL (0-129) HDL Cholesterol 32 mg/dL (40-60) Cholesterol/HDL Ratio 5.9 Thyroid Stimulating Hormone (TSH) 1.226 uIU/mL (0.358-3.74) Test 09/04/19 06:39 09/04/19 11:36 09/04/19 16:36 09/04/19 20:54 Glucose (Fingerstick) 105 mg/dL (70-99) 106 mg/dL (70-99) 96 mg/dL (70-99) 96 mg/dL (70-99) Test 09/05/19 07:19 Glucose (Fingerstick) 129 mg/dL (70-99) Laboratory Tests Test 09/04/19 11:36 09/04/19 16:36 09/04/19 20:54 09/05/19 07:19 Glucose (Fingerstick) 106 mg/dL (70-99) 96 mg/dL (70-99) 96 mg/dL (70-99) 129 mg/dL (70-99) Medications Active Scripts Medications Dose Route/Sig Max Daily Dose Days Date Category Dose Instructions Pyridium (Phenazopyridine Hcl) 200 Mg Tablet 1 Tab PO TID 3 04/16/19 Rx Ciprofloxacin Hcl 500 Mg Tablet 1 Tab PO BID 04/16/19 Rx Lidocaine PATCH (Lidocaine) 1 Each Adh..patch 1 Patch TD DAILY 04/16/19 Rx Metoprolol Tartrate 25 Mg Tablet 25 Mg PO BID 04/15/19 Reported Fiorinal 50-325-40 Mg Capsule (Butalbital/Aspirin/Caffeine) 1 Each Capsule 1 Each PO Q6HRS PRN 03/27/19 Rx Zofran (Ondansetron Hcl) 4 Mg Tablet 4 Mg PO PRN TID PRN 03/27/19 Rx nausea/vomiting Tylenol (Acetaminophen) 325 Mg Tablet 650 Mg PO PRN Q6HRS PRN 30 03/06/19 Rx Pantoprazole Sodium (Pantoprazole Sodium) 40 Mg Tablet.dr 40 Mg PO DAILYAC 30 03/06/19 Rx Dicyclomine Hcl 10 Mg Capsule 1 Cap PO BID PRN 11/27/18 Reported Imitrex (Sumatriptan Succinate) 100 Mg Tablet 1 Tab PO BID PRN 11/27/18 Reported Hydroxyzine Hcl 25 Mg Tablet 1 Tab PO DAILY PRN 11/27/18 Reported Diclofenac Sodium 75 Mg Tablet.dr 1 Tab PO BID 11/27/18 Reported Zolpidem Tartrate 10 Mg Tablet 10 Mg PO HS 11/27/18 Reported Lisinopril 10 Mg Tablet 1 Tab PO HS 06/14/18 Reported Gabapentin 800 Mg Tablet 1 Tab PO BID 06/17/14 Reported Cyclobenzaprine Hcl 10 Mg Tablet 1 Tab PO BID PRN 06/17/14 Reported Colestipol Hcl 1 Gm Tablet 1 Gm PO BID 06/17/14 Reported Tramadol Hcl 50 Mg Tablet 1 Tab PO BID 06/17/14 Reported Comments CXR 08/30 reviewed bilateral patchy infiltrates, mild progression Impression . 1. Acute Respiratory failure due to COVID19 Pneumonia/ ARDS--improving 2. Pneumonia, mycoplasma positive/ in addition to COVID-19 pneumonia--improving 3. Acute respiratory failure multifactorial/ARDS-improving 4. COVID-19 positive test (U07.1, COVID-19) with Acute Respiratory Distress Syndrome (ARDS) (J80, ARDS) (If respiratory failure or sepsis present, add as separate assessment) 5. Protein malnutrition present upon admission, severe Plan . Patient improving, continue to work with physical therapy advance diet Possible discharge in the a.m.September 05 Advance diet per speech extubated on 09/01/2019, continue N/C oxygen off Zithromax, Plaquenil. Labs reviewed d/w RN/RT JOSE CARLOS ROACH MD Sep 05, 2019 11:03
--- NOTE | 2019-09-05 12:03 | PDOC ---
[employer] PROGRESS NOTE Chief Complaint Chief Complaint Acute hypoxic resp failure requiring intubation and mechanical ventilation secondary to COVID 19 penumonia/ ards status post extubation on 09/01/2019 Severe acute pneumonia with New bilateral perihilar and peripheral 5 lobe groundglass lung infiltrates are seen most likely coinfection with mycoplasma Sepsis secondary to the above Acute febrile illness secondary to the above. GERD Acute kidney injury Asthma history of essential Hypertension Dehydration Severe malnutrition Acute Respiratory failure due to COVID19 Pneumonia/ ARDS Mycoplasma positive/ in addition to COVID-19 pneumonia--improving Acute respiratory failure multifactorial/ARDS-improving COVID-19 positive test (U07.1, COVID-19) with Acute Respiratory Distress Syndrome (ARDS) (J80, ARDS) Protein malnutrition present upon admission, severe History of Present Illness History of Present Illness 09-05-2019 Patient seen and examined on the Covid-19 unit she is in respiratory isolation Discussed with RN Chart reviewed 09-04-2019 Patient seen and examined on the Covid-19 unit She remains in respiratory isolation Discussed with RN Chart reviewed [id number] Patient seen and examined in respiratory isolation Covid 19 unit Chart reviewed Discussed with RN She is very ill 09/02/2019 Patient nauseous today, no acute events reported overnight, case discussed with nursing staff patient in no acute distress no complaints during my visit 09/01/2019 No acute events reported overnight, case discussed with nursing staff patient in no acute distress no complaints during my visit off presors seems to be improving 08/31/2019 No acute events reported overnight, case discussed with nursing staff patient in no acute distress during my visit 08/30/2019 Continue to be on AC mode with fio2 at 40% and 6 of peep, no acute events overnight, still requiring a lot of support, remains critically stable. 08/29/2019 Patient remains critically stable, oxygen requirements at 50% discussed with nursing staff at bedside [id number] Patient seen and examined in the ICU She remains mechanically ventilated Assist-control/12/400/50% with 8 of PEEP Sedated with Versed and fentanyl OG feeds running She is Covid 19 positive [id number] Patient seen and examined in the ICU She is extremely critically ill Covid testing is positive Reviewed chest x-ray and CAT scan Discussed with RN Reviewed chart She is on assist-control 18/400/50% Sedated with Versed and fentanyl Also has a maintenance IV [id number] Patient is mechanically ventilated assist-control/18/400/50% Her Covid 19 testing now is positive Chart reviewed Discussed with RN [id number] Patient seen and examined Discussed with RN I called the pharmacy to start some azithromycin because she is now mycoplasma positive Mechanically ventilated Before /450/50% Chart reviewed Prognosis guarded Vitals/I&O Vitals/I&O: Vital Signs Date Time Temp Pulse Resp B/P (MAP) Pulse Ox O2 Delivery O2 Flow Rate FiO2 09/05/19 10:50 97.5 60 18 138/71 (93) 93 Room Air 97.5 09/05/19 08:14 2.0 I & O 09/04/19 09/04/19 09/05/19 15:00 23:00 07:00 Intake Total 0 ml 50 ml Output Total 2000 ml Balance 0 ml -1950 ml Physical Exam General: Alert, Oriented X3, Cooperative, No acute distress Heart: Regular rate Lungs: Clear, Crackles, Other Abdomen: Soft Extremities: No edema Skin: No significant lesion Labs Labs: Laboratory Tests Test 09/04/19 16:36 09/04/19 20:54 09/05/19 07:19 09/05/19 11:26 Glucose (Fingerstick) 96 mg/dL (70-99) 96 mg/dL (70-99) 129 mg/dL (70-99) 132 mg/dL (70-99) Assessment and Plan Assessmemt and Plan Problems Medical Problems: (1) Hypotension Status: Acute (2) Hypoxia Status: Acute (3) Right-sided chest pain Status: Acute (4) Suspected 2019-nCoV infection Status: Acute Acute hypoxic resp failure requiring intubation and mechanical ventilation secondary to COVID 19 penumonia/ ards status post extubation on 09/01/2019 Severe acute pneumonia with New bilateral perihilar and peripheral 5 lobe groundglass lung infiltrates are seen most likely coinfection with mycoplasma Sepsis secondary to the above Acute febrile illness secondary to the above. GERD Acute kidney injury Asthma history of essential Hypertension Dehydration Severe malnutrition Diarrhea Acute Respiratory failure due to COVID19 Pneumonia/ ARDS Mycoplasma positive/ in addition to COVID-19 pneumonia--improving Acute respiratory failure multifactorial/ARDS-improving COVID-19 positive test (U07.1, COVID-19) with Acute Respiratory Distress Syndrome (ARDS) (J80, ARDS) Protein malnutrition present upon admission, severe Plan IV antibiotics are completed Rectal tube Duo nebs Home meds DVT prophylaxis Full code Appreciate subspecialist input Continue current support follow labs, chest x-ray d/w RN/RT speech eval/ oral nutrition Trend labs Hope to discharge when okay with subspecialist Comment Review of Relevant I have reviewed the following items tori (where applicable) has been applied. Medications: Current Medications Medications (Trade) Dose Ordered Sig/Eder Route PRN Reason Start Time Stop Time Status Last Admin Dose Admin Aspirin (Ecotrin) 81 mg [id number] PO 09/05/19 08:00 09/05/19 08:13 Potassium Chloride/Water 100 ml @ 100 mls/hr Q1H IV 09/04/19 12:30 09/04/19 14:29 DC 09/04/19 13:30 Loperamide HCl (Imodium) 2 mg PRN Q15MIN PRN PO DIARRHEA 09/04/19 14:30 09/05/19 08:13 WESLY BOSS K III DO Sep 05, 2019 12:03
[2019-09-05 14:31] VITALS: BP 160/71
[2019-09-05 19:00] VITALS: BP 118/52
[2019-09-05] MEDS: METOPROLOL TART IMMED RELEASE 25 MG TABLET. PO SCH (20:50)
[2019-09-05] MEDS: PATCH REMOVAL. MC SCH (20:51)
[2019-09-05 23:00] VITALS: BP 131/65
[2019-09-06 03:30] VITALS: BP 142/67
[2019-09-06] MEDS: PANTOPRAZOLE IV PUSH 40 MG VIAL. IVP SCH (06:13)
[2019-09-06 07:00] VITALS: BP 138/66
[2019-09-06] MEDS: ASPIRIN ENTERIC COATED 81 MG TABLET.DR. PO SCH (08:51)
[2019-09-06] MEDS: GABAPENTIN 400 MG CAPSULE. PO SCH (08:51)
[2019-09-06] MEDS: COLESTIPOL HCL 1 GM TABLET PO SCH (08:51)
[2019-09-06] MEDS: CEFEPIME HCL IV Push 2 GM VIAL. IVP SCH (08:52)
[2019-09-06] MEDS: METOPROLOL TART IMMED RELEASE 25 MG TABLET. PO SCH (08:52)
[2019-09-06] MEDS: LIDOCAINE (700MG/PATCH) PATCH. TD SCH (08:52)
[2019-09-06] MEDS: traMADol 50 MG TABLET PO SCH (08:53)
--- NOTE | 2019-09-06 09:07 | PDOC ---
CARDIO Progress Notes Date and Time Date of Service 09/06/19 Time of Evaluation 0950 Subjective Subjective: No Chest Pain, No Palpitations, No Dizziness, Other (not more SOA) Vitals Vitals Vital Signs Date Time Temp Pulse Resp B/P (MAP) Pulse Ox O2 Delivery O2 Flow Rate FiO2 09/06/19 08:53 96 Nasal Cannula 1.0 09/06/19 08:52 69 138/66 09/06/19 03:30 97.0 16 97.0 Weight Weight [ ] Input and Output Intake and Output Intake and Output 09/06/19 07:00 Intake Total 530 ml Output Total 550 ml Balance -20 ml Intake Oral 530 ml Output Urine Total 550 ml # Voids 2 # Bowel Movements 1 Laboratory Labs Laboratory Tests Test 09/05/19 11:26 Glucose (Fingerstick) 132 mg/dL (70-99) Microbiology Micro Microbiology 08/24/19 Urine Culture - Final, Complete 08/24/19 Urine Culture Result 1 (REUBEN) - Final, Complete 08/23/19 Blood Culture - Final, Complete NO GROWTH AFTER 5 DAYS Physical Exam HEENT: Neck Supple W Full Motion Chest: Symmetric LUNGS: Other (diminished bases) Heart: RRR Abdomen: Soft N/T Extremities: No Edema Neurology: alert, oriented, follow commands Assessment Assessment 1. Acute respiratory failure, PNA/ARDS; COVID +. Extubated 08/31. Improving. Off Zithromax, Plaquenil. On NC 2. AFIB with RVR in setting of above. Converted back to SR and has been maintaining. Echo 12/15 with preserved LV systolic function. Treadmill MPI 04/17 without evidence of ischemia or infarct. Event monitor 02/2019 without AFIB. 3. Hypertension; labile 4. Hyperlipidemia 5. DARA; resolved Recommendations Continue Metoprolol to PO ASA therapy No OAC at this time as duration of AFIB very brief is setting of acute illness/COVID Outpatient echo May discharge from a CV standpoint and follow up in our office with Dr. Broderick as scheduled. AURORA GUTIERREZ APRN Sep 06, 2019 09:07
--- NOTE | 2019-09-06 10:04 | PDOC ---
PULMONARY PROGRESS NOTES Subjective no soa. extubated 09/01/2019, patient wants to go home with home health Vitals Vital Signs Date Time Temp Pulse Resp B/P (MAP) Pulse Ox O2 Delivery O2 Flow Rate FiO2 09/06/19 08:53 96 Nasal Cannula 1.0 09/06/19 08:52 69 138/66 09/06/19 07:00 98.2 18 98.2 General: Alert, No acute distress Lungs: Clear, Crackles, Other Abdomen: Soft Neuro Exam: Alert Skin: Warm Labs Laboratory Tests Test 09/04/19 11:36 09/04/19 16:36 09/04/19 20:54 09/05/19 07:19 Glucose (Fingerstick) 106 mg/dL (70-99) 96 mg/dL (70-99) 96 mg/dL (70-99) 129 mg/dL (70-99) Test 09/05/19 11:26 Glucose (Fingerstick) 132 mg/dL (70-99) Laboratory Tests Test 09/05/19 11:26 Glucose (Fingerstick) 132 mg/dL (70-99) Medications Active Scripts Medications Dose Route/Sig Max Daily Dose Days Date Category Dose Instructions Pyridium (Phenazopyridine Hcl) 200 Mg Tablet 1 Tab PO TID 3 04/16/19 Rx Ciprofloxacin Hcl 500 Mg Tablet 1 Tab PO BID 04/16/19 Rx Lidocaine PATCH (Lidocaine) 1 Each Adh..patch 1 Patch TD DAILY 04/16/19 Rx Metoprolol Tartrate 25 Mg Tablet 25 Mg PO BID 04/15/19 Reported Fiorinal 50-325-40 Mg Capsule (Butalbital/Aspirin/Caffeine) 1 Each Capsule 1 Each PO Q6HRS PRN 03/27/19 Rx Zofran (Ondansetron Hcl) 4 Mg Tablet 4 Mg PO PRN TID PRN 03/27/19 Rx nausea/vomiting Tylenol (Acetaminophen) 325 Mg Tablet 650 Mg PO PRN Q6HRS PRN 30 03/06/19 Rx Pantoprazole Sodium (Pantoprazole Sodium) 40 Mg Tablet.dr 40 Mg PO DAILYAC 30 03/06/19 Rx Dicyclomine Hcl 10 Mg Capsule 1 Cap PO BID PRN 11/27/18 Reported Imitrex (Sumatriptan Succinate) 100 Mg Tablet 1 Tab PO BID PRN 11/27/18 Reported Hydroxyzine Hcl 25 Mg Tablet 1 Tab PO DAILY PRN 11/27/18 Reported Diclofenac Sodium 75 Mg Tablet.dr 1 Tab PO BID 11/27/18 Reported Zolpidem Tartrate 10 Mg Tablet 10 Mg PO HS 11/27/18 Reported Lisinopril 10 Mg Tablet 1 Tab PO HS 06/14/18 Reported Gabapentin 800 Mg Tablet 1 Tab PO BID 06/17/14 Reported Cyclobenzaprine Hcl 10 Mg Tablet 1 Tab PO BID PRN 06/17/14 Reported Colestipol Hcl 1 Gm Tablet 1 Gm PO BID 06/17/14 Reported Tramadol Hcl 50 Mg Tablet 1 Tab PO BID 06/17/14 Reported Comments CXR 08/30 reviewed bilateral patchy infiltrates, mild progression Impression . 1. Acute Respiratory failure due to COVID19 Pneumonia/ ARDS--improving 2. Pneumonia, mycoplasma positive/ in addition to COVID-19 pneumonia--improving 3. Acute respiratory failure multifactorial/ARDS-improving 4. COVID-19 positive test (U07.1, COVID-19) with Acute Respiratory Distress Syndrome (ARDS) (J80, ARDS) (If respiratory failure or sepsis present, add as separate assessment) 5. Protein malnutrition present upon admission, severe Plan . I walked the patient in the room, okay to discharge with home health Advance diet, physical therapy at home discussed with JOSE CARLOS EMMANUEL MD Sep 06, 2019 10:04
[2019-09-06 11:00] VITALS: BP 124/64
--- NOTE | 2019-09-06 11:11 | SNU/HH DC ---
DISCHARGE ORDERS DISCHARGE INFORMATION: FINAL DIAGNOSIS Problems Medical Problems: (1) Hypotension Status: Acute (2) Hypoxia Status: Acute (3) Right-sided chest pain Status: Acute (4) Suspected 2019-nCoV infection Status: Acute CONDITION ON DISCHARGE: Stable CODE STATUS: Code Status: Full SNF: SNF STAY <30 DAYS: No HOSPICE: HOSPICE: No HOSPICE EVAL & TREAT: No LTAC: ADMIT TO LTAC: Yes POST DISCHARGE ORDERS: ACTIVITY ORDERS: Activity as tolerated WEIGHT BEARING STATUS: As tolerated DIET AFTER DISCHARGE: Regular CHECKS AFTER DISCHARGE: CHECKS AFTER DISCHARGE: Check blood press - daily TREATMENT/EQUIPMENT ORDERS: ADAPTIVE EQUIPMENT NEEDED: None Physical Therapy For: Evalulation/Treatment Occupational Therapy For: Evaluation/Treatment DISCHARGE MEDICATIONS: Home Meds Active Scripts Phenazopyridine Hcl (PYRIDIUM) 200 Mg Tablet, 1 TAB PO TID for urinary discomfort for 3 Days, #30 TAB 0 Refills Prov:JAMEL HUBBARD MD 04/16/19 Ciprofloxacin Hcl (CIPROFLOXACIN HCL) 500 Mg Tablet, 1 TAB PO BID for uti, #14 TAB Prov:JAMEL HUBBARD MD 04/16/19 Lidocaine (Lidocaine PATCH ) 1 Each Adh..patch, 1 PATCH TD DAILY for pain, #10 PATCH Prov:JAMEL HUBBARD MD 04/16/19 Butalbital/Aspirin/Caffeine (FIORINAL 50-325-40 MG CAPSULE) 1 Each Capsule, 1 EACH PO Q6HRS PRN for HEADACHE, #12 CAP Prov:VETO THOMAS Jr. DO 03/27/19 Ondansetron Hcl (ZOFRAN) 4 Mg Tablet, 4 MG PO PRN TID PRN for NAUSEA, #15 TAB nausea/vomiting Prov:VETO THOMAS Jr. DO 03/27/19 Acetaminophen (TYLENOL) 325 Mg Tablet, 650 MG PO PRN Q6HRS PRN for FEVER for 30 Days, #60 TAB Prov:SULEMAN BLACK MD 03/06/19 Pantoprazole Sodium (PANTOPRAZOLE SODIUM ) 40 Mg Tablet.dr, 40 MG PO DAILYAC for Gastritis for 30 Days, #30 TAB.SR Prov:SULEMAN BLACK MD 03/06/19 Reported Medications Metoprolol Tartrate (METOPROLOL TARTRATE) 25 Mg Tablet, 25 MG PO BID for FOR HYPERTENSION, #60 TAB 0 Refills 04/15/19 Dicyclomine Hcl (DICYCLOMINE HCL) 10 Mg Capsule, 1 CAP PO BID PRN for SEE COMMENTS, #90 CAP 11 Refills 11/27/18 Sumatriptan Succinate (IMITREX) 100 Mg Tablet, 1 TAB PO BID PRN for HEADACHE, #9 TAB 1 Refill 11/27/18 Hydroxyzine Hcl (HYDROXYZINE HCL) 25 Mg Tablet, 1 TAB PO DAILY PRN for ITCHING, #30 TAB 11/27/18 Diclofenac Sodium (DICLOFENAC SODIUM) 75 Mg Tablet.dr, 1 TAB PO BID for headaches, #60 TAB 1 Refill 11/27/18 Zolpidem Tartrate (ZOLPIDEM TARTRATE) 10 Mg Tablet, 10 MG PO HS for sleeping, TAB 0 Refills 11/27/18 Lisinopril (LISINOPRIL) 10 Mg Tablet, 1 TAB PO HS for hypertension, TAB 06/14/18 Gabapentin (GABAPENTIN) 800 Mg Tablet, 1 TAB PO BID for Nerve pain, TAB 06/17/14 Cyclobenzaprine Hcl (CYCLOBENZAPRINE HCL) 10 Mg Tablet, 1 TAB PO BID PRN for MUSCLE SPASMS, TAB 06/17/14 Colestipol Hcl (COLESTIPOL HCL) 1 Gm Tablet, 1 GM PO BID for Cholesterol 06/17/14 Tramadol Hcl (TRAMADOL HCL) 50 Mg Tablet, 1 TAB PO BID for Pain, TAB 06/17/14 WESLY BOSS III DO Sep 06, 2019 11:11
[2019-09-06 11:51] LABS: CALCIUM 9.1 mg/dL (8.5-10.1); CREATININE 0.8 mg/dL (0.6-1.0); MAGNESIUM 2.1 mg/dL (1.8-2.4); POTASSIUM 3.8 mmol/L (3.5-5.1)
--- NOTE | 2019-09-06 11:55 | PDOC ---
[employer] PROGRESS NOTE Chief Complaint Chief Complaint Acute hypoxic resp failure requiring intubation and mechanical ventilation secondary to COVID 19 penumonia/ ards status post extubation on 09/01/2019 Severe acute pneumonia with New bilateral perihilar and peripheral 5 lobe groundglass lung infiltrates are seen most likely coinfection with mycoplasma Sepsis secondary to the above Acute febrile illness secondary to the above. GERD Acute kidney injury Asthma history of essential Hypertension Dehydration Severe malnutrition Acute Respiratory failure due to COVID19 Pneumonia/ ARDS Mycoplasma positive/ in addition to COVID-19 pneumonia--improving Acute respiratory failure multifactorial/ARDS-improving COVID-19 positive test (U07.1, COVID-19) with Acute Respiratory Distress Syndrome (ARDS) (J80, ARDS) Protein malnutrition present upon admission, severe History of Present Illness History of Present Illness 09-06-2019 Patient seen and examined Seems to be at her baseline Would like to go home Physical therapy feels she should go to rehab We will try to arrange it for later today 09-05-2019 Patient seen and examined on the Covid-19 unit she is in respiratory isolation Discussed with RN Chart reviewed 09-04-2019 Patient seen and examined on the Covid-19 unit She remains in respiratory isolation Discussed with RN Chart reviewed [id number] Patient seen and examined in respiratory isolation Covco 19 unit Chart reviewed Discussed with RN She is very ill 09/02/2019 Patient nauseous today, no acute events reported overnight, case discussed with nursing staff patient in no acute distress no complaints during my visit 09/01/2019 No acute events reported overnight, case discussed with nursing staff patient in no acute distress no complaints during my visit off presors seems to be improving 08/31/2019 No acute events reported overnight, case discussed with nursing staff patient in no acute distress during my visit 08/30/2019 Continue to be on AC mode with fio2 at 40% and 6 of peep, no acute events overnight, still requiring a lot of support, remains critically stable. 08/29/2019 Patient remains critically stable, oxygen requirements at 50% discussed with nursing staff at bedside [id number] Patient seen and examined in the ICU She remains mechanically ventilated Assist-control///50% with 8 of PEEP Sedated with Versed and fentanyl OG feeds running She is Covid 19 positive [id number] Patient seen and examined in the ICU She is extremely critically ill Covid testing is positive Reviewed chest x-ray and CAT scan Discussed with RN Reviewed chart She is on assist-control 18/400/50% Sedated with Versed and fentanyl Also has a maintenance IV [id number] Patient is mechanically ventilated assist-control/18/400/50% Her Covid 19 testing now is positive Chart reviewed Discussed with RN [id number] Patient seen and examined Discussed with RN I called the pharmacy to start some azithromycin because she is now mycoplasma p ositive Mechanically ventilated Before meals/18/450/50% Chart reviewed Prognosis guarded Vitals/I&O Vitals/I&O: Vital Signs Date Time Temp Pulse Resp B/P (MAP) Pulse Ox O2 Delivery O2 Flow Rate FiO2 09/06/19 08:53 96 Nasal Cannula 1.0 09/06/19 08:52 69 138/66 09/06/19 07:00 98.2 18 98.2 I & O 0 09/05/19 09/05/19 09/06/19 15:00 23:00 07:00 Intake Total 170 ml 360 ml Output Total 300 ml 250 ml Balance -130 ml 360 ml -250 ml Physical Exam General: Alert, Oriented X3, Cooperative, No acute distress Heart: Regular rate Lungs: Clear, Crackles, Other Abdomen: Soft Extremities: No edema Skin: No significant lesion Labs Labs: Laboratory Tests Test 09/06/19 11:20 Sodium Level 142 mmol/L (136-145) Potassium Level 3.8 mmol/L (3.5-5.1) Chloride Level 105 mmol/L (98-107) Carbon Dioxide Level 30 mmol/L (21-32) Anion Gap 7 (6-14) Blood Urea Nitrogen 20 mg/dL (7-20) Creatinine 0.8 mg/dL (0.6-1.0) Estimated GFR (Cockcroft-Gault) 72.0 Glucose Level 100 mg/dL (70-99) Calcium Level 9.1 mg/dL (8.5-10.1) Magnesium Level 2.1 mg/dL (1.8-2.4) Assessment and Plan Assessmemt and Plan Problems Medical Problems: (1) Hypotension Status: Acute (2) Hypoxia Status: Acute (3) Right-sided chest pain Status: Acute (4) Suspected 2019-nCoV infection Status: Acute Probable Covid-19 syndrome Respiratory failure Pneumonia Hypoxia Anemia Elevated d-dimer She states she wears p.r.n. O2 at home, diabetes, GERD, hypertension, hyperlipidemia, chronic pain, and eye abscess. Plan Discharged to [facility] rehab or home with home health? Comment Review of Relevant I have reviewed the following items tori (where applicable) has been applied. Medications: Current Medications Medications (Trade) Dose Ordered Sig/Eder Route PRN Reason Start Time Stop Time Status Last Admin Dose Admin Metoprolol Tartrate (Lopressor) 25 mg BID PO 09/05/19 21:00 09/06/19 08:52 WESLY BOSS III DO Sep 06, 2019 11:55
--- NOTE | 2019-09-06 12:08 | SNU/HH DC ---
DISCHARGE WITH HOME HEALTH DISCHARGE INFORMATION: Final Diagnosis: Problems Medical Problems: (1) Hypotension Status: Acute (2) Hypoxia Status: Acute (3) Right-sided chest pain Status: Acute (4) Suspected 2019-nCoV infection Status: Acute Condition on Discharge: Stable CODE STATUS: Code Status: Full HOME HEALTH: Face to Face: I certify this patient is under my care and that I, or a nurse practitioner or physician's behavioral health assistant working with me, had a face to face encounter that meets the physician face to face encounter requirements with this patient on []. Medical Complications: Pneumonia Senior Living For: Assess & Educate Safety RN For Eval/Treatment: Yes Physical Therapy For: Evalulation/Treatment Occupational Therapy For: Evaluation/Treatment Home Health Aide For: Self-care KILN PUSHER For: Community Resources Pt Meets Homebound Status: Unsteady balance w/ amb, POST DISCHARGE ORDERS: Activity Instructions for Disc: Avoid exertion Weight Bearing Status after Di: Full weight bearing, As tolerated DIET AFTER DISCHARGE: Regular CHECKS AFTER DISCHARGE: Checks after discharge: Check blood press - daily FOLLOW-UP: Follow up with: Primary Care Physician in 1 month Follow Up With: Dr. Broderick 12/12/19 at 9:30 TREATMENT/EQUIPMENT ORDERS: Adaptive Equipment Issued: None CERTIFICATION STATEMENT: Certification Statement: Certification Statement: Based on the above finding, I certify that this patient is confined to the home and needs intermittent long-term care, physical therapy and/or speech therapy, or continues to need occupational therapy.~ This patient is under my care, and I have initiated the establishment of the plan of care.~ This patient will be followed by myself or a community physician who will periodically review the plan of care. Home Meds Active Scripts Phenazopyridine Hcl (PYRIDIUM) 200 Mg Tablet, 1 TAB PO TID for urinary discomfort for 3 Days, #30 TAB 0 Refills Prov:JAMEL HUBBARD MD 04/16/19 Ciprofloxacin Hcl (CIPROFLOXACIN HCL) 500 Mg Tablet, 1 TAB PO BID for uti, #14 TAB Prov:JAMEL HUBBARD MD 04/16/19 Lidocaine (Lidocaine PATCH ) 1 Each Adh..patch, 1 PATCH TD DAILY for pain, #10 PATCH Prov:JAMEL HUBBARD MD 04/16/19 Butalbital/Aspirin/Caffeine (FIORINAL 50-325-40 MG CAPSULE) 1 Each Capsule, 1 EACH PO Q6HRS PRN for HEADACHE, #12 CAP Prov:VETO THOMAS Jr. DO 03/27/19 Ondansetron Hcl (ZOFRAN) 4 Mg Tablet, 4 MG PO PRN TID PRN for NAUSEA, #15 TAB nausea/vomiting Prov:VETO THOMAS Jr. DO 03/27/19 Acetaminophen (TYLENOL) 325 Mg Tablet, 650 MG PO PRN Q6HRS PRN for FEVER for 30 Days, #60 TAB Prov:SULEMAN BLACK MD 03/06/19 Pantoprazole Sodium (PANTOPRAZOLE SODIUM ) 40 Mg Tablet.dr, 40 MG PO DAILYAC for Gastritis for 30 Days, #30 TAB.SR Prov:SULEMAN BLACK MD 03/06/19 Reported Medications Metoprolol Tartrate (METOPROLOL TARTRATE) 25 Mg Tablet, 25 MG PO BID for FOR HYPERTENSION, #60 TAB 0 Refills 04/15/19 Dicyclomine Hcl (DICYCLOMINE HCL) 10 Mg Capsule, 1 CAP PO BID PRN for SEE COMMENTS, #90 CAP 11 Refills 11/27/18 Sumatriptan Succinate (IMITREX) 100 Mg Tablet, 1 TAB PO BID PRN for HEADACHE, #9 TAB 1 Refill 11/27/18 Hydroxyzine Hcl (HYDROXYZINE HCL) 25 Mg Tablet, 1 TAB PO DAILY PRN for ITCHING, #30 TAB 11/27/18 Diclofenac Sodium (DICLOFENAC SODIUM) 75 Mg Tablet.dr, 1 TAB PO BID for headaches, #60 TAB 1 Refill 11/27/18 Zolpidem Tartrate (ZOLPIDEM TARTRATE) 10 Mg Tablet, 10 MG PO HS for sleeping, TAB 0 Refills 11/27/18 Lisinopril (LISINOPRIL) 10 Mg Tablet, 1 TAB PO HS for hypertension, TAB 06/14/18 Gabapentin (GABAPENTIN) 800 Mg Tablet, 1 TAB PO BID for Nerve pain, TAB 06/17/14 Cyclobenzaprine Hcl (CYCLOBENZAPRINE HCL) 10 Mg Tablet, 1 TAB PO BID PRN for MUSCLE SPASMS, TAB 06/17/14 Colestipol Hcl (COLESTIPOL HCL) 1 Gm Tablet, 1 GM PO BID for Cholesterol 06/17/14 Tramadol Hcl (TRAMADOL HCL) 50 Mg Tablet, 1 TAB PO BID for Pain, TAB 06/17/14 WESLY BOSS III DO Sep 06, 2019 12:08
== END 2019-09-06 12:30 | disposition home health service (06) | DRG 870 ==
LOC: ER 16:28 → CVICU 19:47 → 2 SOUTH 08-24 18:50 → 1 WEST ICU 08-24 21:00 → 6 SOUTH 09-02 11:33
PROVIDERS: ADMIT Family Medicine; ATTEND Family Medicine
PROC: 5A1955Z Respiratory Ventilation, Greater than 96 Consecutive Hours (ICD-10-PCS; principal; 2019-08-24)
PROC: 0BH17EZ Insertion of Endotracheal Airway into Trachea, Via Natural or Artificial Opening (ICD-10-PCS; 2019-08-24)
PROC: 5A09357 Assistance with Respiratory Ventilation, Less than 24 Consecutive Hours, Continuous Positive Airway Pressure (ICD-10-PCS; 2019-08-24)
PROC: 02HV33Z Insertion of Infusion Device into Superior Vena Cava, Percutaneous Approach (ICD-10-PCS; 2019-08-27)
PROC: B548ZZA Ultrasonography of Superior Vena Cava, Guidance (ICD-10-PCS; 2019-08-27)
DX: A41.9 Sepsis, unspecified organism (principal); U07.1 COVID-19; J96.01 Acute respiratory failure with hypoxia; E43 Unspecified severe protein-calorie malnutrition; J12.89 Other viral pneumonia; N17.9 Acute kidney failure, unspecified; D64.9 Anemia, unspecified; E11.9 Type 2 diabetes mellitus without complications; E78.5 Hyperlipidemia, unspecified; E86.0 Dehydration; E87.6 Hypokalemia; G89.29 Other chronic pain; I10 Essential (primary) hypertension; I48.0 Paroxysmal atrial fibrillation; J45.909 Unspecified asthma, uncomplicated; K21.9 Gastro-esophageal reflux disease without esophagitis; K58.0 Irritable bowel syndrome with diarrhea; K76.0 Fatty (change of) liver, not elsewhere classified; M19.90 Unspecified osteoarthritis, unspecified site; M79.7 Fibromyalgia; M81.0 Age-related osteoporosis without current pathological fracture; Z78.9 Other specified health status; Z82.49 Family history of ischemic heart disease and other diseases of the circulatory system; Z83.3 Family history of diabetes mellitus; Z87.11 Personal history of peptic ulcer disease; Z87.891 Personal history of nicotine dependence; Z90.49 Acquired absence of other specified parts of digestive tract; Z90.710 Acquired absence of both cervix and uterus; Z90.722 Acquired absence of ovaries, bilateral; F41.9 Anxiety disorder, unspecified; G43.909 Migraine, unspecified, not intractable, without status migrainosus; M10.9 Gout, unspecified; Z87.440 Personal history of urinary (tract) infections; K27.9 Peptic ulcer, site unspecified, unspecified as acute or chronic, without hemorrhage or perforation; I95.9 Hypotension, unspecified; Z68.23 Body mass index [BMI] 23.0-23.9, adult; Z88.8 Allergy status to other drugs, medicaments and biological substances
CPT/HCPCS: 36415; 36569; 36600; 71045; 71250; 74018; 80048; 80053; 80061; 80069; 81001; 82550; 82803; 82805; 82962; 83605; 83690; 83735; 83880; 84100; 84145; 84443; 84484; 85025; 85379; 85384; 85610; 85730; 86738; 87040; 87086; 87449; 87635; 87804; 93005; 94002; 94003; 94640; 94660; 94760; 96361; 96365; 96375; 99285; C9113; J0330; J0456; J0692; J1160; J1650; J1885; J1956; J2250; J2270; J2405; J2704; J3010; J3480; J3490; J7030; J7040; J7050; J7060; Q0162; 92526-GN; 92610-GN; 97530-GP; G0378

== ENCOUNTER → 2019-11-16 | Outpatient (CLI) | payer BC, OTHER ==
--- NOTE | 2019-11-16 13:44 | RAD ---
EXAM: CT chest without IV contrast INDICATION: Reason: SOA / Spl. Instructions: / History: TECHNIQUE: Multi-detector row CT images were acquired from the thoracic inlet through the upper abdomen without the use of IV contrast. Sagittal and coronal images were acquired from the transaxial data. All CT scans performed at this facility utilize dose optimization techniques as appropriate to the exam, including the following: Automated exposure control and adjustment of the mA and/or KV according to patient size (this includes techniques or standardized protocols for targeted exams where dose is indication/reason for exam). IV CONTRAST: Not administered COMPARISON: Chest x-ray of 09/05/2019 FINDINGS: Assessment is limited by lack of IV contrast. CARDIOVASCULAR: Minimal calcifications of the aortic arch and proximal descending thoracic aorta. Minimal calcifications in the right coronary artery normal caliber thoracic aorta. Normal heart size. No pericardial effusion. Normal sized pulmonary arteries. Previous right PICC line has been removed. MEDIASTINUM & REZA: No adenopathy or masses. The thyroid gland is partially imaged and apart from the morning artifact across it, appears unremarkable.. LUNGS: Extensive bilateral pulmonary micronodules (1 to 3 mm in size) are present. In addition, there is subtle mosaic attenuation to the lungs bilaterally. No focal infiltrates or mass noted. PLEURAL SPACE: No pleural effusions or pneumothorax. OSSEOUS & SOFT TISSUE: Unremarkable ABDOMEN: The visualized portions of the upper abdomen shows prior cholecystectomy.. IMPRESSION: Diffuse pulmonary micronodules in mosaic attenuation to the lungs without adenopathy or pleural effusions. Favor atypical pulmonary infection over less likely diffuse micrometastatic disease. Recommend close short-term follow-up and comparison with previous examinations if available. Electronically signed by: India Hoyt MD (11/16/2019 1:41 PM) [id number]
== END | disposition home or self-care (01) ==
LOC: CT 10:15
PROVIDERS: ATTEND Internal Medicine Pulmonary Disease
DX: R06.02 Shortness of breath (principal); I70.0 Atherosclerosis of aorta; I25.10 Atherosclerotic heart disease of native coronary artery without angina pectoris; Q25.49 Other congenital malformations of aorta; Z90.49 Acquired absence of other specified parts of digestive tract
CPT/HCPCS: 71250

== ENCOUNTER → 2020-03-10 | Outpatient (CLI) | payer BC, OTHER ==
[~2020-03-10] MED LIST changes: -OXYC-411 PO; +OXYC1TAB20 PO
--- NOTE | 2020-03-10 15:33 | CARD ---
MR#: [id number] Date of Study: 03/10/2020 Ordering Physician: WILLIE ZAVALETA, Referring Physician: WILLIE ZAVALETA, Tech: Anabelle Cramer [facility] APPROVED REPORT EXAM: Two-dimensional and M-mode echocardiogram with Doppler and color Doppler. Other Information Quality : Good INDICATION Dyspnea 2D DIMENSIONS RVDd3.1 (2.9-3.5cm)Left Atrium(2D)3.5 (1.6-4.0cm) IVSd0.8 (0.7-1.1cm)Aortic Root(2D)3.0 (2.0-3.7cm) LVDd5.0 (3.9-5.9cm)LVOT Diameter2.0 (1.8-2.4cm) PWd1.0 (0.7-1.1cm)LVDs2.3 (2.5-4.0cm) FS (%) 30.0 %SV102.7 ml LVEF(%)60.0 (>50%) Aortic Valve AoV Peak Christian.143.0cm/sAoV VTI36.2cm AO Peak GR.8.2mmHgLVOT Peak Christian.144.5cm/s LVOT VTI 36.91cmAO Mean GR.5mmHg RICH (VMAX)3.36be4GCY (VTI)3.25cm2 Mitral Valve MV E Ckczxivh973.5cm/sMV DECEL DGNM578kw MV A Cabnxiyz077.0cm/sMV WLH12ps E/A Ratio0.9MVA (PHT)3.31cm2 TDI E/Lateral E'13.8E/Medial E'16.2 Tricuspid Valve TR P. Fywewmcj418nw/sRAP UQQLVWHN1cxSg TR Peak Gr.03dsCnIDSO65nwTk Pulmonary Vein S1 Xtvlrcnm59.5cm/sD2 Pjtkopsj75.4cm/s LEFT VENTRICLE The left ventricle is normal size. There is normal left ventricular wall thickness. The left ventricu lar systolic function is normal and the ejection fraction is within normal range. The Ejection Fracti on is 60-65%. There is normal LV segmental wall motion. Transmitral Doppler flow pattern is Grade I-a bnormal relaxation pattern. RIGHT VENTRICLE The right ventricle is normal size. The right ventricular systolic function is normal. ATRIA The left atrium size is normal. The right atrium size is normal. The interatrial septum is intact wit h no evidence for an atrial septal defect or patent foramen ovale as noted on 2-D or Doppler imaging. AORTIC VALVE The aortic valve is normal in structure and function. Doppler and Color Flow revealed no significant aortic regurgitation. There is no significant aortic valvular stenosis. MITRAL VALVE The mitral valve is calcified but opens well. There is no evidence of mitral valve prolapse. There is no mitral valve stenosis. Doppler and Color-flow revealed mild mitral regurgitation. TRICUSPID VALVE The tricuspid valve is normal in structure and function. Doppler and Color Flow revealed trace tricus pid regurgitation. The PA pressure was estimated at 25 mmHg. There is no tricuspid valve stenosis. PULMONIC VALVE The pulmonic valve is not well visualized. Doppler and Color Flow revealed no pulmonic valvular regur gitation. There is no pulmonic valvular stenosis. GREAT VESSELS The aortic root is normal in size. The ascending aorta is not well seen. The IVC is normal in size an d collapses >50% with inspiration. PERICARDIAL EFFUSION There is no evidence of significant pericardial effusion. Critical Notification Critical Value: No <Conclusion> The left ventricle is normal size. The left ventricular systolic function is normal and the ejection fraction is within normal range. The Ejection Fraction is 60-65%. Transmitral Doppler flow pattern is Grade I-abnormal relaxation pattern. Doppler and Color Flow revealed no significant aortic regurgitation. There is no significant aortic valvular stenosis. Doppler and Color-flow revealed mild mitral regurgitation. Doppler and Color Flow revealed trace tricuspid regurgitation. The PA pressure was estimated at 25 mmHg. Signed by : Rupert Garcia MD Electronically Approved : 03/10/2020 15:33:06
== END ==
LOC: ECHO 13:22
PROVIDERS: ATTEND Internal Medicine Cardiovascular Disease
DX: I34.0 Nonrheumatic mitral (valve) insufficiency (principal)
CPT/HCPCS: 93306

== ENCOUNTER 2020-09-20 05:16 | Inpatient (IN) | payer OTHER, MEDICARE ==
[~2020-09-20] VITALS: Ht 170.2 cm; Wt 83.3 kg
[~2020-09-20 05:16] MED LIST changes: +ASPI325T11 PO; +ATOR20TA58 PO; -CIPR500T PO; +CIPR500T2 PO; +LISI10TA16 PO; -LISI10TA2 PO; +OFLO5DRO4 OD; +PRED5DRO16 OD; +[UNRECOGNIZED DRUG - OTHER]
[2020-09-20] MEDS ORDERED: ONDANSETRON PF 4 MG/2 ML VIAL. ONE (05:45)
[2020-09-20 05:54] LABS: BASO % 0 % (0-3); EOS # 0.1 x10^3/uL (0.0-0.7); EOS % 1 % (0-3); HEMATOCRIT 45.6 % (36.0-47.0); HEMOGLOBIN 15.7 g/dL (12.0-15.5); LYMPH # 0.3 x10^3/uL (1.0-4.8); LYMPH % 2 % (24-48); MEAN CORPUSCULAR HEMOGLOBIN 29 pg (25-35); MEAN CORPUSCULAR HGB CONC 35 g/dL (31-37); MEAN CORPUSCULAR VOLUME 84 fL (79-100); MONO # 0.5 x10^3/uL (0.0-1.1); MONO % 4 % (0-9); NEUT # 12.4 x10^3/uL (1.8-7.7); NEUT % 93 % (31-73); PLATELET COUNT 358 x10^3/uL (140-400); RED BLOOD COUNT 5.46 x10^6/uL (3.50-5.40); RED CELL DISTRIBUTION WIDTH 12.9 % (11.5-14.5); WHITE BLOOD COUNT 13.3 x10^3/uL (4.0-11.0)
[2020-09-20] MEDS ORDERED: IV NORMAL SALINE 1000ML BAG 1,000 ML IV ONE (06:00)
[2020-09-20] MEDS ORDERED: MORPHINE SULFATE 4 MG/ML VIAL. IV ONE (06:00)
[2020-09-20 06:12] LABS: CALCIUM 9.5 mg/dL (8.5-10.1); CREATININE 1.1 mg/dL (0.6-1.0); GFR 49.7; POTASSIUM 4.5 mmol/L (3.5-5.1)
[2020-09-20 06:19] LABS: ALBUMIN 4.6 g/dL (3.4-5.0); TOTAL BILIRUBIN 0.7 mg/dL (0.2-1.0)
--- NOTE | 2020-09-20 06:19 | PHYS DOC ---
Past Medical History Past Medical History: Anxiety, Arthritis, Asthma, Fibromyalgia, GERD, Hypertension, IBS, NE, Migraines, Pneumonia, Seizure, UTI, Other Additional Past Medical Histor: GOUT,OSTEOPOROSIS,COVID-19(JULY 2019) (RODERICK WOODS DO) Past Surgical History: Appendectomy, Cholecystectomy, Hysterectomy, Other Additional Past Surgical Histo: laparoscopy,CATARACTS (RODERICK WOODS DO) Smoking Status: Unknown if ever smoked Alcohol Use: None Drug Use: None (RODERICK WOODS DO) General Adult EDM: Chief Complaint: CHEST PAIN HPI: HPI: Patient is a 65 year old female with a past medical history of hypertension, anxiety, asthma, NE present for evaluation of chest pain, back pain and shortness of breath. History obtained primarily from . Patient A/O x4 but not providing much information due to pain. states patient with nausea and vomiting since 2245hrs. Approximately 0400hrs patient started to complaint of Chest and Back pain associated with shortness of breath. Patient states pain is substernal and radiates to her back. Pain is rated 10/10. Patient has associated nausea and shortness of breath. EKG - on arrival sinus rhythm with rate 97 - without acute NE. (RODERICK WOODS DO) Review of Systems: Review of Systems: Review of systems: Constitutional symptoms- No fever, no chills. Eyes- No Discharge, No Visual Loss Respiratory symptoms- positive shortness of breath, No wheezing, No Dyspnea on Exertion Cardiovascular Systems; positive chest pain, No Palpitations, No syncope Gastrointestinal symptoms: NO abdominal pain, positive nausea, positive vomiting Genitourinary symptoms: No dysuria. Musculoskeletal symptoms: positive back pain No extremity pain. NEUROLOGICAL Symptoms: No headache, no generalized weakness; No focal Weakness (RODERICK WOODS DO) Heart Score: C/O Chest Pain: Yes HEART Score for Chest Pain: HEART Score for Chest Pain Response (Comments) Value History Moderately Suspicious 1 ECG Nonspecific Repolarizatio 1 Age > 65 2 Risk Factors 1 or 2 Risk Factors 1 Total 5 Risk Factors: Risk Factors: DM, Current or recent (<one month) smoker, HTN, HLP, family histo ry of CAD, obesity. Risk Scores: Score 0 - 3: 2.5% MACE over next 6 weeks - Discharge Home Score 4 - 6: 20.3% MACE over next 6 weeks - Admit for Clinical Observation Score 7 - 10: 72.7% MACE over next 6 weeks - Early Invasive Strategies (RODERICK WOODS DO) Current Medications: Current Medications Medications (Trade) Dose Ordered Sig/Eder Start Time Stop Time Status Last Admin Dose Admin Morphine Sulfate (Morphine Sulfate) 4 mg 1X ONCE 09/20/20 06:00 09/20/20 06:01 DC 09/20/20 05:50 4 MG Ondansetron HCl (Zofran) 4 mg 1X ONCE 09/20/20 06:30 09/20/20 06:31 Sodium Chloride 1,000 ml @ 1,000 mls/hr 1X ONCE 09/20/20 06:00 09/20/20 06:59 09/20/20 05:50 1,000 MLS/HR (RODERICK WOODS DO) Allergies: Allergies: Allergies Coded Allergies Type Severity Reaction Last Updated Verified onion Allergy Intermediate 03/08/19 Yes phenytoin Allergy Intermediate rash 03/05/19 Yes (RODERICK WOODS DO) Physical Exam: PE: General: alert, no acute distress, anxious Skin: warm, dry and intact. Head:: Normocephalic, atraumatic. Neck: Trachea midline. Eyes: EOMI, Normal conjunctiva, No drainage CARDIOVASCULAR: Regular rate and rhythm RESPIRATORY: No respiratory distress, breath sounds bilateral Back: Full range of motion. MUSCULOSKELETAL: Full range of motion of bilateral upper and lower extremities. GASTROINTESTINAL: Abdomen soft without rebound or guarding. Tenderness epigastric region NEUROLOGICAL: Alert and noted to person, place and time. No neurological deficits observed Psychiatric: Anxious (RODERICK WOODS DO) Current Patient Data: Labs: Laboratory Tests Test 09/20/20 05:33 White Blood Count 13.3 x10^3/uL (4.0-11.0) H Red Blood Count 5.46 x10^6/uL (3.50-5.40) H Hemoglobin 15.7 g/dL (12.0-15.5) H Hematocrit 45.6 % (36.0-47.0) Mean Corpuscular Volume 84 fL (79-100) Mean Corpuscular Hemoglobin 29 pg (25-35) Mean Corpuscular Hemoglobin Concent 35 g/dL (31-37) Red Cell Distribution Width 12.9 % (11.5-14.5) Platelet Count 358 x10^3/uL (140-400) Neutrophils (%) (Auto) 93 % (31-73) H Lymphocytes (%) (Auto) 2 % (24-48) L Monocytes (%) (Auto) 4 % (0-9) Eosinophils (%) (Auto) 1 % (0-3) Basophils (%) (Auto) 0 % (0-3) Neutrophils # (Auto) 12.4 x10^3/uL (1.8-7.7) H Lymphocytes # (Auto) 0.3 x10^3/uL (1.0-4.8) L Monocytes # (Auto) 0.5 x10^3/uL (0.0-1.1) Eosinophils # (Auto) 0.1 x10^3/uL (0.0-0.7) Basophils # (Auto) 0.0 x10^3/uL (0.0-0.2) Platelet Estimate Pending Laboratory Tests 09/20/20 05:33 Vital Signs: Vital Signs Date Time Temp Pulse Resp B/P (MAP) Pulse Ox O2 Delivery O2 Flow Rate FiO2 09/20/20 05:50 33 97 Room Air 09/20/20 05:16 98.9 144/74 (97) 98.9 (PEGGY,RODERICK I DO) EKG: EKG: [] (PEGGY,RODERICK I DO) Radiology/Procedures: Radiology/Procedures: [] (PEGGY,RODERICK I DO) Radiology/Procedures: EXAM: CT angiography of the chest, abdomen and pelvis with intravenous contrast. HISTORY: Pain. TECHNIQUE: Computed tomographic images of the chest, abdomen and pelvis were obtained following the administration of intravenous contrast according to angiography protocol. Multiplanar reformatting was performed and three dimen sional maximum intensity projection images were obtained. *One or more of the following individualized dose reduction techniques were utilized for this examination: 1. Automated exposure control. 2. Adjustment of the mA and/or kV according to patient size. 3. Use of iterative reconstruction technique. COMPARISON: 11/16/2019. 12/21/2018 FINDINGS: Chest: The aorta is normal in caliber. There is no dissection. There is calcified atherosclerotic plaque involving the aorta and aortic great ves sels. The left vertebral artery originates directly from the aortic arch and there is a common origin of the right innominate and left common carotid arteries, a normal arch branching variant. There is suspected severe stenosis at the origin of the left vertebral artery due to calcified atherosclerotic plaque. There is a 1.7 cm right paratracheal nodule posterior to the right thyroid lobe. There are prominent bilateral hilar lymph nodes. There is no pneumothorax or pleural effusion. There is mild emphysema and biapical pleural parenchymal scarring. There is no infiltrate. There are several small bilateral pulmonary nodules in a predominantly peripheral distribution, the largest of which measure 3 mm. There is degenerative change involving the spine. There is no suspicious osseous lesion. Abdomen and pelvis: No hepatic lesion is seen. There is mild biliary ductal dilatation likely due to reservoir effect status post cholecystectomy. The pancreas, spleen, stomach and adrenal glands are unremarkable. There are small simple appearing left renal cysts. There is no hydronephrosis. No abnormally thickened or dilated loop of bowel is seen. There are few sigmoid diverticula. The bladder is nearly empty. The uterus is absent. No adnexal lesion is seen. The aorta is normal in caliber. There is no dissection. There is partially calcified atherosclerotic plaque involving the aorta and iliac bifurcation. There is no suspicious osseous lesion. There is degenerative change primarily at the lumbosacral junction. There is a minimal chronic anterior wedge deformity of L1. There are few osseous hemangiomas and bone islands. IMPRESSION: 1. No acute thoracic, abdominal or pelvic finding. 2. Numerous tiny bilateral pulmonary nodules measuring up to 3 mm in a predominantly peripheral distribution. This is similar compared to studies dating to 05/03/2019, favoring benignity. CT follow-up is recommended in 6-12 months. 3. Stable high right paratracheal nodule. The attenuation of this nodule suggests that may be due to ectopic thyroid parenchyma rather than a pathologically enlarged lymph node. The nearly two-year course of stability favors benignity. 4. Simple appearing left renal cyst. Follow-up is not routinely performed for simple cysts. 5. Sigmoid diverticulosis. 6. Mild pulmonary emphysema. (SASHA MONTELONGO MD) Course & Med Decision Making: Course & Med Decision Making Pertinent Labs and Imaging studies reviewed. (See chart for details) []Patient was evaluated for chief complaint. Work up included labs ekg and radiologic imaging. Treatment included morphine and zofran. Patient signed out to Dr Montelongo-- disposition pending workup results and re- evaluation. (RODERICK WOODS DO) Efren Disclaimer: fEren Disclaimer: This electronic medical record was generated, in whole or in part, using a voice recognition dictation system. (RODERICK WOODS DO) Departure Departure Impression: Primary Impression: Chest pain Additional Impressions: Back pain Nausea and vomiting Condition: STABLE Referrals: FABI FLANAGAN MD (PCP) Attending Signature Attending Signature I have participated in the care of this patient and I have reviewed and agree with all pertinent clinical information above including history, exam, and recommendations. (SASHA MONTELONGO MD) RODERICK WOODS DO Sep 20, 2020 06:19 SASHA MONTELONGO MD Sep 20, 2020 07:30
[2020-09-20] MEDS ORDERED: ONDANSETRON PF 4 MG/2 ML VIAL. IVP ONE (06:30)
[2020-09-20 06:33] LABS: PROTHROMBIN TIME PATIENT 12.7 SEC (11.7-14.0)
[2020-09-20] MEDS ORDERED: CONTRAST GIVEN. MC PRN (06:45)
[2020-09-20] MEDS ORDERED: FAMOTIDINE 20 MG/2 ML VIAL IVP ONE (07:00)
[2020-09-20] MEDS ORDERED: HYDROmorphone 2 MG/ML VIAL IVP ONE (07:00)
[2020-09-20] MEDS ORDERED: IOHEXOL 350 MG/ML 100 ML VIAL. IV ONE (07:00)
[2020-09-20 07:21] LABS: % BANDS 10 % (0-9); % LYMPHS 2 % (24-48); % MONOS 3 % (0-10); % SEGS 85 % (35-66); PLT ESTIMATE ADEQUATE (ADEQUATE)
--- NOTE | 2020-09-20 07:24 | RAD ---
EXAM: CT angiography of the chest, abdomen and pelvis with intravenous contrast. HISTORY: Pain. TECHNIQUE: Computed tomographic images of the chest, abdomen and pelvis were obtained following the a dministration of intravenous contrast according to angiography protocol. Multiplanar reformatting was performed and three dimensional maximum intensity projection images were obtained. *One or more of the following individualized dose reduction techniques were utilized for this examina tion: 1. Automated exposure control. 2. Adjustment of the mA and/or kV according to patient size. 3. Use of iterative reconstruction technique. COMPARISON: 11/16/2019. 12/21/2018 FINDINGS: Chest: The aorta is normal in caliber. There is no dissection. There is calcified atheroscl erotic plaque involving the aorta and aortic great vessels. The left vertebral artery originates dire ctly from the aortic arch and there is a common origin of the right innominate and left common caroti d arteries, a normal arch branching variant. There is suspected severe stenosis at the origin of the left vertebral artery due to calcified atherosclerotic plaque. There is a 1.7 cm right paratracheal n odule posterior to the right thyroid lobe. There are prominent bilateral hilar lymph nodes. There is no pneumothorax or pleural effusion. There is mild emphysema and biapical pleural parenchymal scarrin g. There is no infiltrate. There are several small bilateral pulmonary nodules in a predominantly per ipheral distribution, the largest of which measure 3 mm. There is degenerative change involving the s pine. There is no suspicious osseous lesion. Abdomen and pelvis: No hepatic lesion is seen. There is mild biliary ductal dilatation likely due to reservoir effect status post cholecystectomy. The pancreas, spleen, stomach and adrenal glands are un remarkable. There are small simple appearing left renal cysts. There is no hydronephrosis. No abnorma lly thickened or dilated loop of bowel is seen. There are few sigmoid diverticula. The bladder is sp rly empty. The uterus is absent. No adnexal lesion is seen. The aorta is normal in caliber. There is no dissection. There is partially calcified atherosclerotic plaque involving the aorta and iliac bifu rcation. There is no suspicious osseous lesion. There is degenerative change primarily at the lumbosa cral junction. There is a minimal chronic anterior wedge deformity of L1. There are few osseous heman giomas and bone islands. IMPRESSION: 1. No acute thoracic, abdominal or pelvic finding. 2. Numerous tiny bilateral pulmonary nodules measuring up to 3 mm in a predominantly peripheral distr ibution. This is similar compared to studies dating to 05/03/2019, favoring benignity. CT follow-up is recommended in 6-12 months. 3. Stable high right paratracheal nodule. The attenuation of this nodule suggests that may be due to ectopic thyroid parenchyma rather than a pathologically enlarged lymph node. The nearly two-year cour se of stability favors benignity. 4. Simple appearing left renal cyst. Follow-up is not routinely performed for simple cysts. 5. Sigmoid diverticulosis. 6. Mild pulmonary emphysema. Electronically signed by: Patricia Milian MD (09/20/2020 7:22 AM) [id number]
--- NOTE | 2020-09-20 07:25 | RAD ---
EXAM: Chest, single view. HISTORY: Chest pain. COMPARISON: 04/10/2020 FINDINGS: A frontal view of the chest is obtained. There is no infiltrate, pleural effusion or pneumo thorax. The heart is normal in size. IMPRESSION: No acute pulmonary finding. Note is made that tiny pulmonary nodules demonstrated on the CT performed the same date are not well seen radiographically due to their small size. Please refer the CT report for follow-up recommendatio ns. Electronically signed by: Patricia Milian MD (09/20/2020 7:23 AM) [id number]
[2020-09-20] MEDS ORDERED: ONDANSETRON PF 4 MG/2 ML VIAL. IV PRN (07:45)
[2020-09-20] MEDS ORDERED: MORPHINE SULFATE 4 MG/ML VIAL. IV PRN (07:45)
--- NOTE | 2020-09-20 11:38 | EKG ---
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
[2020-09-20 12:25] VITALS: BP 123/78
--- NOTE | 2020-09-20 12:25 | NUR ---
The patient, EDUARDO TORRES, 65 y/o, F admitted by WESLY BOSS III, DO, was given written information regarding hospital policies, unit procedures and contact persons. Valuables were checked and left in room with patient. Patient arrived to room 206 via gurney with ER nurse. Patient complaining of pain and weakness in bilateral legs. Vitals stable, on room air. at bedside. Patient unable to answer questions due to dry heaving and shortness of breath. Tele monitor applied. Call light in reach. Will continue to monitor.
[2020-09-20] MEDS ORDERED: HYDR-2761 PO (13:17)
[2020-09-20] MEDS ORDERED: OXYC-317 PO (13:17)
[2020-09-20] MEDS ORDERED: BUDE0.25 NEB (13:17)
[2020-09-20] MEDS ORDERED: ALBU2.5V14 NEB (13:17)
--- NOTE | 2020-09-20 13:57 | HP ---
ADMIT DATE: 09/20/2020 CHIEF COMPLAINT: Chest pain. HISTORY OF PRESENT ILLNESS: The patient is a pleasant 65-year-old female who presented to the ER today with chest pain. She has associated nausea and vomiting, rates it 10/10, it is radiating to her back. It is worse with moving, better with sitting still. I discussed the case with the ER physician. We are going to admit the patient and consult cardiology. It should be noted that the patient was scheduled to have a stress test in the near future with cardiology. PAST MEDICAL HISTORY: Anxiety, arthritis, asthma, fibromyalgia, GERD, hypertension, irritable bowel syndrome, myocardial infarction, migraines, pneumonia, seizures, UTI, gout, osteoporosis, COVID-19. PAST SURGICAL HISTORY: Appendectomy, cholecystectomy, hysterectomy, cataract surgery, laparotomy. ALLERGIES: ONIONS AND PHENYTOIN. FAMILY HISTORY: Diabetes. SOCIAL HISTORY: She does not drink, smoke or take drugs. She is . MEDICATIONS: Reviewed, please refer the MRAD. REVIEW OF SYSTEMS: GENERAL: No history of weight change, weakness or fevers. SKIN: No bruising, hair changes or rashes. EYES: No blurred, double or loss of vision. NOSE AND THROAT: No history of nosebleeds, hoarseness or sore throat. HEART: She complains of chest pain. LUNGS: Denies cough, hemoptysis, wheezing or shortness of breath. GASTROINTESTINAL: She complains of nausea and vomiting. GENITOURINARY: No history of frequency, urgency, hesitancy or nocturia. NEUROLOGIC: Denies history of numbness, tingling, tremor or weakness. PSYCHIATRIC: No history of panic, anxiety or depression. ENDOCRINE: No history of heat or cold intolerance, polyuria or polydipsia. EXTREMITIES: Denies muscle weakness, joint pain, pain on walking or stiffness. PHYSICAL EXAMINATION: GENERAL: She is crying. SKIN: No bruising, hair changes or rashes. EYES: No blurred, double or loss of vision. NOSE AND THROAT: No history of nosebleeds, hoarseness or sore throat. HEART: She has distant S1, S2. LUNGS: Denies cough, hemoptysis, wheezing or shortness of breath. GASTROINTESTINAL: She has decreased bowel sounds with some abdominal tenderness. GENITOURINARY: No history of frequency, urgency, hesitancy or nocturia. NEUROLOGIC: She is weak and crying. PSYCHIATRIC: She is crying. ENDOCRINE: No history of heat or cold intolerance, polyuria or polydipsia. EXTREMITIES: Denies muscle weakness, joint pain, pain on walking or stiffness. LABORATORY DATA: White count is 13, hemoglobin 15.7, platelets 358. Electrolytes are normal other than a BUN of 21 and creatinine 1.1. Her anion gap is slightly high at 16. Troponin is 0. INR is 1.0. Chest x-ray shows no acute changes other than some old pulmonary nodules and CT of the abdomen shows no acute thoracic, abdominal or pelvic finding. She does have numerous pulmonary nodules. ASSESSMENT AND PLAN: Chest pain and incidental finding of pulmonary nodule. The patient will be admitted, we will check serial enzymes, serial EKGs. Consult Cardiology, home meds, DVT prophylaxis, Full Code, consult pulmonary regarding the pulmonary nodules, p.r.n. Zofran, p.r.n. morphine. CC time 31 minutes. GRUPO/BALTA/JOSE CRUZ DR: Katie TID: [id number]
[2020-09-20 14:43] VITALS: BP 131/79
--- NOTE | 2020-09-20 16:08 | PDOC2 ---
CARDIOLOGY CONSULT NOTE DATE OF SERVICE: DATE: 09/20/20 TIME: 16:00 CHIEF COMPLAINT: Nausea and vomiting HPI: 65-year-old woman who is been admitted to the hospital for evaluation of nausea and vomiting. She was actually seen in our office on September 17. She was having persistent dyspnea after experiencing Covid in 2019. A previous echocardiogram in February 2020 was unremarkable. Due to persistent dyspnea and some risk factors a outpatient stress test was ordered. Nonetheless, last night she apparently was doing okay but began to have some nausea and vomiting symptoms which then persisted for several hours and due to some chest and back pain in the setting of nausea and emesis she presented to the ER. In the ER she was in moderate distress with tachycardia and nonbloody bilious emesis with what appears to be undigested food in her basin. She was admitted for further evaluation for chest pain although I do not see any clear evidence of a cardiac cause of her chest pain at this time. She had extensive work-up including CT of the chest abdomen pelvis which was unremarkable. Her cardiac enzymes are unremarkable and her EKG is also unremarkable. PMHX: Paroxysmal atrial fibrillation Prior history of Covid pneumonia Hypertension Dyslipidemia Persistent long-term dyspnea after Covid SOCHX: No alcohol, tobacco or illicit drug use FAMHX: Noncontributory CURRENT MEDS: Current Medications Medications (Trade) Dose Ordered Sig/Eder Route PRN Reason Start Time Stop Time Status Last Admin Dose Admin Morphine Sulfate (Morphine Sulfate) 4 mg 1X ONCE IV 09/20/20 06:00 09/20/20 06:01 DC 09/20/20 05:50 Sodium Chloride 1,000 ml @ 1,000 mls/hr 1X ONCE IV 09/20/20 06:00 09/20/20 06:59 DC 09/20/20 05:50 Ondansetron HCl (Zofran) 4 mg 1X ONCE IVP 09/20/20 06:30 09/20/20 06:31 DC 09/20/20 06:18 Iohexol (Omnipaque 350 Mg/ml) 350 ml 1X ONCE IV 09/20/20 07:00 09/20/20 07:01 DC 09/20/20 07:13 Famotidine (Pepcid Vial) 20 mg 1X ONCE IVP 09/20/20 07:00 09/20/20 07:01 DC 09/20/20 06:48 Hydromorphone HCl (Dilaudid) 1 mg 1X ONCE IVP 09/20/20 07:00 09/20/20 07:01 DC 09/20/20 06:48 Ondansetron HCl (Zofran) 4 mg PRN Q8HRS PRN IV NAUSEA/VOMITING 09/20/20 07:45 09/21/20 07:44 09/20/20 15:45 Lorazepam (Ativan Inj) 1 mg PRN Q4HRS PRN IVP ANXIETY / AGITATION 09/20/20 11:15 09/20/20 15:45 ALLERGIES: Allergies Coded Allergies Type Severity Reaction Last Updated Verified onion Allergy Intermediate 03/08/19 Yes phenytoin Allergy Intermediate rash 03/05/19 Yes ROS: Negative for 10 out of 14 systems reviewed unless otherwise mentioned above in HPI PHYSICAL EXAM: Vital Signs/I&O: Vital Signs Date Time Temp Pulse Resp B/P (MAP) Pulse Ox O2 Delivery O2 Flow Rate FiO2 09/20/20 14:43 99.7 120 28 131/79 (96) 96 Room Air 99.7 Physical Exam: In general she was alert and oriented but in moderate distress. Head and neck exams unremarkable She has mild diffuse abdominal tenderness No significant lower extremity edema Normal cardiopulmonary examination DIAGNOSTIC TESTING: EKG is unremarkable Cardiac enzymes are negative x1 Echocardiogram in February 2020 revealed normal LV function without any signifi cant valvular heart disease CT of the chest abdomen pelvis currently is unremarkable ASSESSMENT: 1. Probable gastroenteritis 2. No specific cardiovascular pathology noted. Chest pain likely related to emesis 3. Chronic hypertension 4. Chronic dyspnea probably related to Covid with a negative echocardiogram and outpatient stress test pending PLAN: 1. Continue treatment of nausea and emesis per primary service. Low suspicion for any cardiac pathology. We will repeat a another troponin just to ensure that this is not any underlying ischemia. 2. Recent cardiac testing as noted above. Plan for outpatient stress testing. Supportive care for now. No further inpatient cardiovascular testing necessary at this time. We will follow along. WILLIE ZAVALETA MD Sep 20, 2020 16:08
[2020-09-20] MEDS: IV NORMAL SALINE 1000ML BAG 1,000 ML IV SCH (16:17)
[2020-09-20 18:35] VITALS: BP 129/78
[2020-09-20 19:50] VITALS: BP 115/62
[2020-09-20] MEDS: MORPHINE SULFATE 4 MG/ML VIAL. IV PRN (20:01)
[2020-09-20] MEDS: PROCHLORPERAZINE 10 MG/2 ML VIAL. IV PRN (20:02)
[2020-09-20 23:35] VITALS: BP 125/69
[2020-09-21 03:25] VITALS: BP 108/57
[2020-09-21] MEDS: IV NORMAL SALINE 1000ML BAG 1,000 ML IV SCH ×2 (03:35→19:03)
[2020-09-21] MEDS ORDERED: IPRATRPIUM/ALBUTEROL 0.5/2.5MG 3 ML NEBU. ONE (07:07)
[2020-09-21] MEDS: IPRATRPIUM/ALBUTEROL 0.5/2.5MG 3 ML NEBU. NEB SCH ×4 (07:12→19:59)
[2020-09-21] MEDS: BUDESONIDE 0.5 MG/2 ML NEBU. NEB SCH ×2 (07:12→19:59)
[2020-09-21 07:41] VITALS: BP 123/64
--- NOTE | 2020-09-21 08:14 | CONS ---
DATE OF CONSULTATION: 09/21/2020 REASON FOR CONSULTATION: I was asked to see this 65-year-old lady for abnormal CT of the chest. HISTORY OF PRESENT ILLNESS: She does have history of [id number] smoking, quit smoking 20 years ago. She has been followed by Dr. Mendez for asthma. She states that she had a sleep study done last year, which did not show sleep apnea. She is on Breo and DuoNebs and albuterol p.r.n. She was admitted for nausea, vomiting and chest pain. She did have diarrhea, but it has resolved. She does have shortness of breath with activity, but it is not worse. She has occasional cough, which is not worse. She denies fever or chills. PAST MEDICAL HISTORY: Asthma, arthritis, anxiety, gastroesophageal reflux disease, hypertension, gout. PAST SURGICAL HISTORY: Appendectomy, cholecystectomy, hysterectomy, cataract surgery. ALLERGIES: ONION AND PHENYTOIN. MEDICATIONS: Currently, she is on IV fluid and Zofran p.r.n. SOCIAL HISTORY: History of [id number] smoking, quit smoking 20 years ago. FAMILY HISTORY: Hypertension. REVIEW OF SYSTEMS: As mentioned as above, all other systems otherwise negative. PHYSICAL EXAMINATION: GENERAL: This is an overweight lady. VITAL SIGNS: O2 saturation on room air is 95%, respiratory rate 17, heart rate 73, blood pressure 108/57, temperature 98.9. HEENT: Normocephalic, atraumatic. Pupils equal, round, reactive to light. There is shallow oropharynx. She is edentulous. Nose is clear. CARDIOVASCULAR: Regular rate and rhythm. PMI is nondisplaced. CHEST: Inspection is normal. LUNGS: Clear to auscultation. There is no wheezing. ABDOMEN: Soft. Bowel sounds are good. There is no mass. EXTREMITIES: There is no edema. LYMPHATICS: There is no lymphadenopathy. NEUROLOGIC: Alert and oriented. SKIN: Chronic changes. DIAGNOSTIC DATA: I reviewed the following lab data: CT of the chest did show multiple bilateral small 3-mm pulmonary nodules. Compared to 2019, there is no significant change. There is a stable high right paratracheal nodule, which radiologist suggested this is ectopic thyroid parenchyma rather than enlarged lymph nodes; simple left renal cyst; sigmoid diverticulosis; mild pulmonary emphysema. LABORATORY DATA: Sodium 142, potassium 4.5, chloride 105, CO2 21, BUN 21, creatinine 1.1. BNP 132. Troponin less than 0.017. Lipase 87. IMPRESSION: 1. Dyspnea, multifactorial in etiology including obesity, deconditioning, asthma. 2. Abnormal CT of the chest. She does have bilateral pulmonary nodules up to 3 mm, has been stable since 2019. 4. Nausea, vomiting? etiology. 5. Hypertension. 6. Gastroesophageal reflux disease. 7. Renal insufficiency. Need to rule out acute kidney injury versus chronic kidney disease. PLAN AND RECOMMENDATIONS: 1. She has a history of [id number] smoking. I do recommend a followup CT of the chest in 6 months. 2. I will start her on DuoNeb. 3. will start her on inhaled corticosteroid, Pulmicort. 4. I will start her on Pepcid IV for gastroesophageal reflux disease. 5. Continue IV fluid. 6. Cardiology on the case. 7. I have advised her to exercise and lose weight. We may need to repeat her sleep study. I will discuss with Dr. Mendez. 8. The findings and recommendations were discussed with the patient and RN. Thank you very much for allowing me to participate in care of this very nice lady. MALATHI/SUB DR: MALATHI/kenrick TID: [id number] SHELL
[2020-09-21 08:18] LABS: BASO % 0 % (0-3); EOS % 1 % (0-3); HEMATOCRIT 38.7 % (36.0-47.0); HEMOGLOBIN 12.9 g/dL (12.0-15.5); LYMPH # 0.9 x10^3/uL (1.0-4.8); LYMPH % 16 % (24-48); MEAN CORPUSCULAR HEMOGLOBIN 29 pg (25-35); MEAN CORPUSCULAR HGB CONC 33 g/dL (31-37); MEAN CORPUSCULAR VOLUME 86 fL (79-100); MONO # 0.7 x10^3/uL (0.0-1.1); MONO % 14 % (0-9); NEUT # 3.6 x10^3/uL (1.8-7.7); NEUT % 69 % (31-73); PLATELET COUNT 252 x10^3/uL (140-400); RED BLOOD COUNT 4.51 x10^6/uL (3.50-5.40); RED CELL DISTRIBUTION WIDTH 13.2 % (11.5-14.5); WHITE BLOOD COUNT 5.3 x10^3/uL (4.0-11.0)
[2020-09-21 08:33] LABS: CALCIUM 8.3 mg/dL (8.5-10.1); CREATININE 0.9 mg/dL (0.6-1.0); GFR 62.6; POTASSIUM 3.8 mmol/L (3.5-5.1)
[2020-09-21] MEDS: MORPHINE SULFATE 4 MG/ML VIAL. IV PRN (09:45)
[2020-09-21] MEDS: ONDANSETRON PF 4 MG/2 ML VIAL. IVP PRN ×2 (09:45→16:26)
[2020-09-21 10:30] VITALS: BP 122/66
--- NOTE | 2020-09-21 13:12 | PDOC ---
[employer] PROGRESS NOTE Date of Service DOS: DATE: 09/21/20 TIME: 13:04 Chief Complaint Chief Complaint Chest pain Nausea and vomiting Diarrhea Leg cramps Headache History of Present Illness History of Present Illness 09/21/2020: Patient seen and examined Complains of persistent nausea and vomiting Appears uncomfortable lying in bed Discussed with RN Chart reviewed Vitals/I&O Vitals/I&O: Vital Signs Date Time Temp Pulse Resp B/P (MAP) Pulse Ox O2 Delivery O2 Flow Rate FiO2 09/21/20 11:57 Room Air 09/21/20 10:30 97.9 82 18 122/66 (84) 99 97.9 I & O 09/20/20 09/20/20 09/21/20 15:00 23:00 07:00 Output Total 250 ml Balance -250 ml Physical Exam General: Alert, Cooperative, Other (Appears uncomofortable) Heart: Regular rate, No murmurs Lungs: Clear, Crackles Abdomen: Soft, No tenderness Extremities: No clubbing, No edema, Normal pulses Skin: No rashes, No significant lesion Labs Labs: Laboratory Tests Test 09/20/20 16:50 09/21/20 06:25 Troponin I Quantitative < 0.017 ng/mL (0.000-0.055) White Blood Count 5.3 x10^3/uL (4.0-11.0) Red Blood Count 4.51 x10^6/uL (3.50-5.40) Hemoglobin 12.9 g/dL (12.0-15.5) Hematocrit 38.7 % (36.0-47.0) Mean Corpuscular Volume 86 fL (79-100) Mean Corpuscular Hemoglobin 29 pg (25-35) Mean Corpuscular Hemoglobin Concent 33 g/dL (31-37) Red Cell Distribution Width 13.2 % (11.5-14.5) Platelet Count 252 x10^3/uL (140-400) Neutrophils (%) (Auto) 69 % (31-73) Lymphocytes (%) (Auto) 16 % (24-48) Monocytes (%) (Auto) 14 % (0-9) Eosinophils (%) (Auto) 1 % (0-3) Basophils (%) (Auto) 0 % (0-3) Neutrophils # (Auto) 3.6 x10^3/uL (1.8-7.7) Lymphocytes # (Auto) 0.9 x10^3/uL (1.0-4.8) Monocytes # (Auto) 0.7 x10^3/uL (0.0-1.1) Eosinophils # (Auto) 0.0 x10^3/uL (0.0-0.7) Basophils # (Auto) 0.0 x10^3/uL (0.0-0.2) Sodium Level 143 mmol/L (136-145) Potassium Level 3.8 mmol/L (3.5-5.1) Chloride Level 110 mmol/L (98-107) Carbon Dioxide Level 25 mmol/L (21-32) Anion Gap 8 (6-14) Blood Urea Nitrogen 16 mg/dL (7-20) Creatinine 0.9 mg/dL (0.6-1.0) Estimated GFR (Cockcroft-Gault) 62.6 Glucose Level 112 mg/dL (70-99) Calcium Level 8.3 mg/dL (8.5-10.1) Review of Systems Review of Systems: Reports nausea, vomiting, diarrhea, abdominal cramping, headache, and chest pain. Denies fevers, chills, weakness. Assessment and Plan Assessmemt and Plan Assessment: Chest pain Incidental finding of pulmonary nodule. Intractable n/v/d Abdominal pain Leg cramping Headaches Plan: Change PRN morphine to PRN Toradol for pain Zofran PRN for nausea Awaiting cardiology input GI consulted, recommendations appreciated Pulmonology consulted, recommendations appreciated Cardiac monitoring Serial enzymes Serial EKGs Home meds DVT prophylaxis Full code Comment Review of Relevant I have reviewed the following items tori (where applicable) has been applied. Medications: Current Medications Medications (Trade) Dose Ordered Sig/Eder Route PRN Reason Start Time Stop Time Status Last Admin Dose Admin Sodium Chloride 1,000 ml @ 75 mls/hr [id number] IV 09/20/20 16:00 09/21/20 03:35 Ondansetron HCl (Zofran) 4 mg PRN Q6HRS PRN IVP NAUSEA/VOMITING, 1ST CHOICE 09/20/20 19:30 09/21/20 09:45 Prochlorperazine Edisylate (Compazine) 10 mg PRN Q6HRS PRN IV NAUSEA/VOMITING, 2ND CHOICE 09/20/20 19:30 09/20/20 20:02 Albuterol/ Ipratropium (Duoneb) 3 ml RTQID NEB 09/21/20 08:00 09/21/20 11:57 Budesonide (Pulmicort) 0.5 mg RTBID NEB 09/21/20 08:00 09/21/20 07:12 Justifications for Admission Other Justification CVA WESLY BOSS III DO Sep 21, 2020 13:12
--- NOTE | 2020-09-21 14:10 | PDOC2 ---
CONSULT Date of Consult Date of Consult DATE: 09/21/20 TIME: 14:08 Reason for Consult Reason for Consult: Nausea and vomiting recurrent Past Medical History Cardiovascular: CAD, HTN, OR Pulmonary: Bronchitis, Pneumonia CENTRAL NERVOUS SYSTEM: Seizure GI: GERD, Peptic Ulcer disease Heme/Onc: Cancer Hepatobiliary: No pertinent hx Psych: Anxiety Musculoskeletal: Osteoarthritis Rheumatologic: Fibromyalgia Infectious disease: Herpes zoster Renal/: UTI, Other Endocrine: Osteoporosis Past Surgical History Past Surgical History: Appendectomy, Cholecystectomy, Cataract Removal Family History Family History: Diabetes, Other Social History ALCOHOL: none Drugs: None Lives: with Family Domestic Violence: Neg Current Problem List Problem List Problems Medical Problems: (1) Back pain Status: Acute (2) Chest pain Status: Acute (3) Nausea and vomiting Status: Acute Current Medications Current Medications Current Medications Morphine Sulfate (Morphine Sulfate) 4 mg 1X ONCE IV Last administered on 09/20/20at 05:50; Start 09/20/20 at 06:00; Stop 09/20/20 at 06:01; Status DC Sodium Chloride 1,000 ml @ 1,000 mls/hr 1X ONCE IV Last administered on 09/20/20at 05:50; Start 09/20/20 at 06:00; Stop 09/20/20 at 06:59; Status DC Ondansetron HCl (Zofran) 4 mg STK-MED ONCE .ROUTE ; Start 09/20/20 at 05:45; Stop 09/20/20 at 05:45; Status DC Ondansetron HCl (Zofran) 4 mg 1X ONCE IVP Last administered on 09/20/20at 06:18; Start 09/20/20 at 06:30; Stop 09/20/20 at 06:31; Status DC Iohexol (Omnipaque 350 Mg/ml) 350 ml 1X ONCE IV Last administered on 09/20/20at 07:13; Start 09/20/20 at 07:00; Stop 09/20/20 at 07:01; Status DC Info (CONTRAST GIVEN -- Rx MONITORING) 1 each PRN DAILY PRN MC SEE COMMENTS; Start 09/20/20 at 06:45; Stop 09/22/20 at 06:44 Famotidine (Pepcid Vial) 20 mg 1X ONCE IVP Last administered on 09/20/20at 06:48; Start 09/20/20 at 07:00; Stop 09/20/20 at 07:01; Status DC Hydromorphone HCl (Dilaudid) 1 mg 1X ONCE IVP Last administered on 09/20/20 06:48; Start 09/20/20 at 07:00; Stop 09/20/20 at 07:01; Status DC Ondansetron HCl (Zofran) 4 mg PRN Q8HRS PRN IV NAUSEA/VOMITING Last administered on 09/20/20 15:45; Start 09/20/20 at 07:45; Stop 09/21/20 at 07:44; Status DC Morphine Sulfate (Morphine Sulfate) 4 mg PRN Q2HR PRN IV PAIN; Start 09/20/20 at 07:45; Stop 09/20/20 at 10:39; Status DC Morphine Sulfate (Morphine Sulfate) 4 mg PRN Q2HR PRN IV PAIN Last administered on 09/21/20 09:45; Start 09/20/20 at 10:45 Lorazepam (Ativan Inj) 1 mg PRN Q4HRS PRN IVP ANXIETY / AGITATION Last administered on 09/20/20at 15:45; Start 09/20/20 at 11:15 Sodium Chloride 1,000 ml @ 75 mls/hr [id number] IV Last administered on 09/21/20 03:35; Start 09/20/20 at 16:00 Ondansetron HCl (Zofran) 4 mg PRN Q6HRS PRN IVP NAUSEA/VOMITING, 1ST CHOICE Last administered on 09/21/20at 09:45; Start 09/20/20 at 19:30 Prochlorperazine Edisylate (Compazine) 10 mg PRN Q6HRS PRN IV NAUSEA/VOMITING, 2ND CHOICE Last administered on 09/20/20 20:02; Start 09/20/20 at 19:30 Famotidine (Pepcid Vial) 20 mg QHS IVP ; Start 09/21/20 at 21:00 Albuterol/ Ipratropium (Duoneb) 3 ml RTQID NEB Last administered on 09/21/20at 11:57; Start 09/21/20 at 08:00 Budesonide (Pulmicort) 0.5 mg RTBID NEB Last administered on 09/21/20at 07:12; Start 09/21/20 at 08:00 Albuterol/ Ipratropium (Duoneb) 3 ml STK-MED ONCE .ROUTE ; Start 09/21/20 at 07:07; Stop 09/21/20 at 07:08; Status DC Ketorolac Tromethamine (Toradol 30mg Vial) 30 mg PRN Q6HRS PRN IVP I NFLAMMATION; Start 09/21/20 at 13:15; Stop 09/26/20 at 13:14 Active Scripts Active Fiorinal 50-325-40 Mg Capsule (Butalbital/Aspirin/Caffeine) 1 Each Capsule 1 Each PO Q6HRS PRN Reported Hydrocodone-Apap 5-325 (Hydrocodone Bit/Acetaminophen) 1 Tab Tablet 1 Tab PO PRN Q6HRS PRN Endocet 10-325 Mg Tablet (Oxycodone Hcl/Acetaminophen) 1 Each Tablet 1 Tab PO QIDPRN PRN MDD 4 Tablet(s) 5 Days Albuterol Sulfate Conc Neb Soln (Albuterol Sulfate) 2.5 Mg/0.5 Ml Vial.neb 1 Vial NEB Q6HRS Budesonide 0.25 Mg/2 Ml Ampul.neb 1 Vial NEB BID Metoprolol Tartrate 25 Mg Tablet 25 Mg PO BID Dicyclomine Hcl 10 Mg Capsule 1 Cap PO BID PRN Imitrex (Sumatriptan Succinate) 100 Mg Tablet 1 Tab PO BID PRN Hydroxyzine Hcl 25 Mg Tablet 1 Tab PO DAILY PRN Diclofenac Sodium 75 Mg Tablet.dr 1 Tab PO BID Zolpidem Tartrate 10 Mg Tablet 10 Mg PO HS Lisinopril 10 Mg Tablet 1 Tab PO HS Gabapentin 800 Mg Tablet 1 Tab PO BID Cyclobenzaprine Hcl 10 Mg Tablet 1 Tab PO BID PRN Colestipol Hcl 1 Gm Tablet 1 Gm PO BID Tramadol Hcl 50 Mg Tablet 1 Tab PO BID Allergies Allergies: Coded Allergies: onion (Verified Allergy, Intermediate, 03/08/19) phenytoin (Verified Allergy, Intermediate, rash, 03/05/19) Vitals VITALS Vital Signs Date Time Temp Pulse Resp B/P (MAP) Pulse Ox O2 Delivery O2 Flow Rate FiO2 09/21/20 11:57 Room Air 09/21/20 10:30 97.9 82 18 122/66 (84) 99 97.9 Labs Labs Laboratory Tests Test 09/20/20 05:33 09/20/20 16:50 09/21/20 06:25 White Blood Count 13.3 x10^3/uL (4.0-11.0) 5.3 x10^3/uL (4.0-11.0) Red Blood Count 5.46 x10^6/uL (3.50-5.40) 4.51 x10^6/uL (3.50-5.40) Hemoglobin 15.7 g/dL (12.0-15.5) 12.9 g/dL (12.0-15.5) Hematocrit 45.6 % (36.0-47.0) 38.7 % (36.0-47.0) Mean Corpuscular Volume 84 fL (79-100) 86 fL (79-100) Mean Corpuscular Hemoglobin 29 pg (25-35) 29 pg (25-35) Mean Corpuscular Hemoglobin Concent 35 g/dL (31-37) 33 g/dL (31-37) Red Cell Distribution Width 12.9 % (11.5-14.5) 13.2 % (11.5-14.5) Platelet Count 358 x10^3/uL (140-400) 252 x10^3/uL (140-400) Neutrophils (%) (Auto) 93 % (31-73) 69 % (31-73) Lymphocytes (%) (Auto) 2 % (24-48) 16 % (24-48) Monocytes (%) (Auto) 4 % (0-9) 14 % (0-9) Eosinophils (%) (Auto) 1 % (0-3) 1 % (0-3) Basophils (%) (Auto) 0 % (0-3) 0 % (0-3) Neutrophils # (Auto) 12.4 x10^3/uL (1.8-7.7) 3.6 x10^3/uL (1.8-7.7) Lymphocytes # (Auto) 0.3 x10^3/uL (1.0-4.8) 0.9 x10^3/uL (1.0-4.8) Monocytes # (Auto) 0.5 x10^3/uL (0.0-1.1) 0.7 x10^3/uL (0.0-1.1) Eosinophils # (Auto) 0.1 x10^3/uL (0.0-0.7) 0.0 x10^3/uL (0.0-0.7) Basophils # (Auto) 0.0 x10^3/uL (0.0-0.2) 0.0 x10^3/uL (0.0-0.2) Segmented Neutrophils % 85 % (35-66) Band Neutrophils % 10 % (0-9) Lymphocytes % 2 % (24-48) Monocytes % 3 % (0-10) Platelet Estimate Adequate (ADEQUATE) Prothrombin Time 12.7 SEC (11.7-14.0) Prothromb Time International Ratio 1.0 (0.8-1.1) Activated Partial Thromboplast Time 26 SEC (24-38) D-Dimer (Stefanie) 0.39 ug/mlFEU (0.00-0.50) Sodium Level 142 mmol/L (136-145) 143 mmol/L (136-145) Potassium Level 4.5 mmol/L (3.5-5.1) 3.8 mmol/L (3.5-5.1) Chloride Level 105 mmol/L (98-107) 110 mmol/L (98-107) Carbon Dioxide Level 21 mmol/L (21-32) 25 mmol/L (21-32) Anion Gap 16 (6-14) 8 (6-14) Blood Urea Nitrogen 21 mg/dL (7-20) 16 mg/dL (7-20) Creatinine 1.1 mg/dL (0.6-1.0) 0.9 mg/dL (0.6-1.0) Estimated GFR (Cockcroft-Gault) 49.7 62.6 BUN/Creatinine Ratio 19 (6-20) Glucose Level 165 mg/dL (70-99) 112 mg/dL (70-99) Calcium Level 9.5 mg/dL (8.5-10.1) 8.3 mg/dL (8.5-10.1) Total Bilirubin 0.7 mg/dL (0.2-1.0) Aspartate Amino Transf (AST/SGOT) 29 U/L (15-37) Alanine Aminotransferase (ALT/SGPT) 59 U/L (14-59) Alkaline Phosphatase 95 U/L (46-116) Troponin I Quantitative < 0.017 ng/mL (0.000-0.055) < 0.017 ng/mL (0.000-0.055) DF-Ixk-H-Type Natriuretic Peptide 132 pg/mL (0-124) Total Protein 9.0 g/dL (6.4-8.2) Albumin 4.6 g/dL (3.4-5.0) Albumin/Globulin Ratio 1.0 (1.0-1.7) Lipase 87 U/L (73-393) Laboratory Tests Test 09/20/20 16:50 09/21/20 06:25 Troponin I Quantitative < 0.017 ng/mL (0.000-0.055) White Blood Count 5.3 x10^3/uL (4.0-11.0) Red Blood Count 4.51 x10^6/uL (3.50-5.40) Hemoglobin 12.9 g/dL (12.0-15.5) Hematocrit 38.7 % (36.0-47.0) Mean Corpuscular Volume 86 fL (79-100) Mean Corpuscular Hemoglobin 29 pg (25-35) Mean Corpuscular Hemoglobin Concent 33 g/dL (31-37) Red Cell Distribution Width 13.2 % (11.5-14.5) Platelet Count 252 x10^3/uL (140-400) Neutrophils (%) (Auto) 69 % (31-73) Lymphocytes (%) (Auto) 16 % (24-48) Monocytes (%) (Auto) 14 % (0-9) Eosinophils (%) (Auto) 1 % (0-3) Basophils (%) (Auto) 0 % (0-3) Neutrophils # (Auto) 3.6 x10^3/uL (1.8-7.7) Lymphocytes # (Auto) 0.9 x10^3/uL (1.0-4.8) Monocytes # (Auto) 0.7 x10^3/uL (0.0-1.1) Eosinophils # (Auto) 0.0 x10^3/uL (0.0-0.7) Basophils # (Auto) 0.0 x10^3/uL (0.0-0.2) Sodium Level 143 mmol/L (136-145) Potassium Level 3.8 mmol/L (3.5-5.1) Chloride Level 110 mmol/L (98-107) Carbon Dioxide Level 25 mmol/L (21-32) Anion Gap 8 (6-14) Blood Urea Nitrogen 16 mg/dL (7-20) Creatinine 0.9 mg/dL (0.6-1.0) Estimated GFR (Cockcroft-Gault) 62.6 Glucose Level 112 mg/dL (70-99) Calcium Level 8.3 mg/dL (8.5-10.1) Assessment/Plan Assessment/Plan N/V- s/p juvenal, etiology to be determined. Differential includes: para- esophageal hernia, gastroparesis, and/or partial SBO. Plan UGI series, If negative, then GES to follow. Full note dictated JOHN HOLDER MD Sep 21, 2020 14:10
[2020-09-21 14:32] VITALS: BP 139/70
[2020-09-21] MEDS: KETOROLAC 30 MG/ML VIAL. IVP PRN (16:17)
--- NOTE | 2020-09-21 16:58 | CONS ---
DATE OF CONSULTATION: 09/21/2020 GASTROINTESTINAL CONSULTATION REASON FOR CONSULTATION: Intractable nausea and vomiting, recurrent. HISTORY OF PRESENT ILLNESS: A 65-year-old female who has past medical history significant for organic heart disease, hypertension, fibromyalgia, asthma, gout, osteoporosis, status post appendectomy, cholecystectomy, hysterectomy, post cataract was admitted to [facility] with chest pain, shortness of breath. The patient is status post cholecystectomy. She has done well for approximately two years, now has recurrent emesis. The patient states that she has been sick since Kieran night associated with some abdominal pain, but continued issues, consultation was requested. PAST MEDICAL HISTORY: Asthma, arthritis, anxiety, fibromyalgia, GERD, hypertension. PAST SURGICAL HISTORY: Status post appendectomy, cholecystectomy, hysterectomy, cataracts, and laparoscopy. MEDICATIONS: Presently include famotidine, ketorolac, budesonide, albuterol, Compazine, ondansetron, and morphine. SOCIAL HISTORY: She is retired. Does not drink or smoke. REVIEW OF SYSTEMS: Per records. PHYSICAL EXAMINATION: GENERAL: Reveals a well-nourished, well-developed female. VITAL SIGNS: Temperature 97.9, pulse 62, respiratory rate 18, blood pressure 122/66. LUNGS: Clear. HEART: Reveals an S1, S2 without S3, S4 or appreciable murmur. ABDOMEN: Reveals a soft abdomen, normal bowel sounds with multiple surgical incisions. Mild epigastric tenderness to palpation. EXTREMITIES: No cyanosis, clubbing or edema. LABORATORY DATA: Sodium 143, potassium 3.8, chloride 110, bicarbonate is 16, creatinine 0.9, glucose 112, calcium 8.3, total bilirubin 0.7, alkaline phosphatase 95, ALT 59, AST 29. CT of the chest, abdomen and pelvis reveals simple renal cysts, sigmoid diverticulosis, pulmonary emphysema. IMPRESSION: Nausea and vomiting, status post cholecystectomy. Etiologies to be determined with negative cardiac workup making inferior wall ischemia, less likely gastroparesis, paraesophageal hernia, partial small-bowel obstruction, ____ differential, therefore, recommend upper GI x-ray in the a.m. to further assess possible paraesophageal hernia with gastric involvement. If this is nonrevealing, then gastric emptying study would be pursued. JORGE A DR: Yuniel TID: [id number]
[2020-09-21 19:40] VITALS: BP 130/61
--- NOTE | 2020-09-21 19:59 | NUR ---
NEBILIZED TREATMENTS HELD FOR THIS DOSE, PT C/O NAUSEA AND VOMITING
[2020-09-21] MEDS: PROCHLORPERAZINE 10 MG/2 ML VIAL. IV PRN (20:01)
[2020-09-21] MEDS ORDERED: FAMOTIDINE 20 MG/2 ML VIAL IVP SCH (21:00)
[2020-09-21 22:50] VITALS: BP 119/62
[2020-09-22 03:25] VITALS: BP 119/63
[2020-09-22 07:00] VITALS: BP 145/72
[2020-09-22] MEDS: KETOROLAC 30 MG/ML VIAL. IVP PRN (07:19)
[2020-09-22 07:20] LABS: BASO % 1 % (0-3); EOS # 0.2 x10^3/uL (0.0-0.7); EOS % 3 % (0-3); HEMATOCRIT 35.9 % (36.0-47.0); HEMOGLOBIN 12.2 g/dL (12.0-15.5); LYMPH # 1.2 x10^3/uL (1.0-4.8); LYMPH % 25 % (24-48); MEAN CORPUSCULAR HEMOGLOBIN 29 pg (25-35); MEAN CORPUSCULAR HGB CONC 34 g/dL (31-37); MEAN CORPUSCULAR VOLUME 85 fL (79-100); MONO # 0.8 x10^3/uL (0.0-1.1); MONO % 17 % (0-9); NEUT # 2.5 x10^3/uL (1.8-7.7); NEUT % 54 % (31-73); PLATELET COUNT 244 x10^3/uL (140-400); RED BLOOD COUNT 4.23 x10^6/uL (3.50-5.40); RED CELL DISTRIBUTION WIDTH 12.9 % (11.5-14.5); WHITE BLOOD COUNT 4.6 x10^3/uL (4.0-11.0)
[2020-09-22 07:51] LABS: CALCIUM 8.4 mg/dL (8.5-10.1); CREATININE 0.9 mg/dL (0.6-1.0); GFR 62.6; POTASSIUM 3.8 mmol/L (3.5-5.1)
[2020-09-22] MEDS: BUDESONIDE 0.5 MG/2 ML NEBU. NEB SCH ×2 (08:17→20:53)
[2020-09-22] MEDS: IPRATRPIUM/ALBUTEROL 0.5/2.5MG 3 ML NEBU. NEB SCH ×4 (08:17→20:53)
[2020-09-22] MEDS ORDERED: BARIUM SULFATE 60% 355 ML SUSP PO ONE (09:15)
[2020-09-22] MEDS ORDERED: SIMETHICONE/SOD BICARB/CITRIC ACID PACKET. PO ONE (09:15)
[2020-09-22] MEDS ORDERED: BARIUM SULFATE 340 GM SUSPENSION. PO ONE (09:15)
--- NOTE | 2020-09-22 10:13 | RAD ---
EXAM: Upper gastrointestinal series exam. HISTORY: Recurrent nausea and vomiting. TECHNIQUE: A fluoroscopic sound technician supervisor image of the abdomen is obtained. Fluoroscopic imaging was then perfo rmed in multiple positions and obliquities during the oral administration of barium contrast. Efferve scent crystals were demonstrated for dedicated air contrast views. A total of 12 fluoroscopic images were obtained of the total fluoroscopy time was 1.1 minute. COMPARISON: CT dated 09/20/2020. FINDINGS: The fluoroscopic sound technician supervisor image demonstrates no evidence of bowel obstruction. The lung bases are clear. The heart is normal in size. The images obtained during the oral administration of contras t demonstrate normal swallowing function. There is no evidence of aspiration or penetration. The esop hagus is normal in caliber. There is no esophageal mucosal lesion. There is no delayed transit of con trast beyond the gastroesophageal junction and there is no hiatal hernia. There is no reflux of contr ast with recumbent positioning. The gastric contour and mucosal pattern is unremarkable. There is nor mal emptying of contrast into the small bowel. There are incidental cholecystectomy clips. IMPRESSION: Unremarkable upper gastric intestinal series exam. Specifically, no findings correlate wi th the reported history of recurrent nausea and vomiting. Electronically signed by: Patricia Milian MD (09/22/2020 10:11 AM) [id number]
--- NOTE | 2020-09-22 10:29 | PDOC ---
PULMONARY PROGRESS NOTES DATE: 09/22/20 TIME: 10:25 Subjective c/o N/V mild dry cough Vitals Vital Signs Date Time Temp Pulse Resp B/P (MAP) Pulse Ox O2 Delivery O2 Flow Rate FiO2 09/22/20 08:18 99 Room Air 09/22/20 07:00 98.1 75 18 145/72 (96) 98.1 General: Alert, No acute distress Lungs: Clear Abdomen: Soft, Non-tender Neuro Exam: Alert Extremities: No Edema Skin: Warm Labs Laboratory Tests Test 09/20/20 16:50 09/21/20 06:25 09/22/20 06:00 Troponin I Quantitative < 0.017 ng/mL (0.000-0.055) White Blood Count 5.3 x10^3/uL (4.0-11.0) 4.6 x10^3/uL (4.0-11.0) Red Blood Count 4.51 x10^6/uL (3.50-5.40) 4.23 x10^6/uL (3.50-5.40) Hemoglobin 12.9 g/dL (12.0-15.5) 12.2 g/dL (12.0-15.5) Hematocrit 38.7 % (36.0-47.0) 35.9 % (36.0-47.0) Mean Corpuscular Volume 86 fL (79-100) 85 fL (79-100) Mean Corpuscular Hemoglobin 29 pg (25-35) 29 pg (25-35) Mean Corpuscular Hemoglobin Concent 33 g/dL (31-37) 34 g/dL (31-37) Red Cell Distribution Width 13.2 % (11.5-14.5) 12.9 % (11.5-14.5) Platelet Count 252 x10^3/uL (140-400) 244 x10^3/uL (140-400) Neutrophils (%) (Auto) 69 % (31-73) 54 % (31-73) Lymphocytes (%) (Auto) 16 % (24-48) 25 % (24-48) Monocytes (%) (Auto) 14 % (0-9) 17 % (0-9) Eosinophils (%) (Auto) 1 % (0-3) 3 % (0-3) Basophils (%) (Auto) 0 % (0-3) 1 % (0-3) Neutrophils # (Auto) 3.6 x10^3/uL (1.8-7.7) 2.5 x10^3/uL (1.8-7.7) Lymphocytes # (Auto) 0.9 x10^3/uL (1.0-4.8) 1.2 x10^3/uL (1.0-4.8) Monocytes # (Auto) 0.7 x10^3/uL (0.0-1.1) 0.8 x10^3/uL (0.0-1.1) Eosinophils # (Auto) 0.0 x10^3/uL (0.0-0.7) 0.2 x10^3/uL (0.0-0.7) Basophils # (Auto) 0.0 x10^3/uL (0.0-0.2) 0.0 x10^3/uL (0.0-0.2) Sodium Level 143 mmol/L (136-145) 144 mmol/L (136-145) Potassium Level 3.8 mmol/L (3.5-5.1) 3.8 mmol/L (3.5-5.1) Chloride Level 110 mmol/L (98-107) 110 mmol/L (98-107) Carbon Dioxide Level 25 mmol/L (21-32) 25 mmol/L (21-32) Anion Gap 8 (6-14) 9 (6-14) Blood Urea Nitrogen 16 mg/dL (7-20) 12 mg/dL (7-20) Creatinine 0.9 mg/dL (0.6-1.0) 0.9 mg/dL (0.6-1.0) Estimated GFR (Cockcroft-Gault) 62.6 62.6 Glucose Level 112 mg/dL (70-99) 94 mg/dL (70-99) Calcium Level 8.3 mg/dL (8.5-10.1) 8.4 mg/dL (8.5-10.1) Laboratory Tests Test 09/22/20 06:00 White Blood Count 4.6 x10^3/uL (4.0-11.0) Red Blood Count 4.23 x10^6/uL (3.50-5.40) Hemoglobin 12.2 g/dL (12.0-15.5) Hematocrit 35.9 % (36.0-47.0) Mean Corpuscular Volume 85 fL (79-100) Mean Corpuscular Hemoglobin 29 pg (25-35) Mean Corpuscular Hemoglobin Concent 34 g/dL (31-37) Red Cell Distribution Width 12.9 % (11.5-14.5) Platelet Count 244 x10^3/uL (140-400) Neutrophils (%) (Auto) 54 % (31-73) Lymphocytes (%) (Auto) 25 % (24-48) Monocytes (%) (Auto) 17 % (0-9) Eosinophils (%) (Auto) 3 % (0-3) Basophils (%) (Auto) 1 % (0-3) Neutrophils # (Auto) 2.5 x10^3/uL (1.8-7.7) Lymphocytes # (Auto) 1.2 x10^3/uL (1.0-4.8) Monocytes # (Auto) 0.8 x10^3/uL (0.0-1.1) Eosinophils # (Auto) 0.2 x10^3/uL (0.0-0.7) Basophils # (Auto) 0.0 x10^3/uL (0.0-0.2) Sodium Level 144 mmol/L (136-145) Potassium Level 3.8 mmol/L (3.5-5.1) Chloride Level 110 mmol/L (98-107) Carbon Dioxide Level 25 mmol/L (21-32) Anion Gap 9 (6-14) Blood Urea Nitrogen 12 mg/dL (7-20) Creatinine 0.9 mg/dL (0.6-1.0) Estimated GFR (Cockcroft-Gault) 62.6 Glucose Level 94 mg/dL (70-99) Calcium Level 8.4 mg/dL (8.5-10.1) Medications Active Scripts Medications Dose Route/Sig Max Daily Dose Days Date Category Hydrocodone-Apap 5-325 (Hydrocodone Bit/Acetaminophen) 1 Tab Tablet 1 Tab PO PRN Q6HRS PRN 09/20/20 Reported Endocet 10-325 Mg Tablet (Oxycodone Hcl/Acetaminophen) 1 Each Tablet 1 Tab PO QIDPRN PRN MDD 4 Tablet(s) 5 09/20/20 Reported Albuterol Sulfate Conc Neb Soln (Albuterol Sulfate) 2.5 Mg/0.5 Ml Vial.neb 1 Vial NEB Q6HRS 09/20/20 Reported Budesonide 0.25 Mg/2 Ml Ampul.neb 1 Vial NEB BID 09/20/20 Reported Metoprolol Tartrate 25 Mg Tablet 25 Mg PO BID 04/15/19 Reported Fiorinal 50-325-40 Mg Capsule (Butalbital/Aspirin/Caffeine) 1 Each Capsule 1 Each PO Q6HRS PRN 03/27/19 Rx Dicyclomine Hcl 10 Mg Capsule 1 Cap PO BID PRN 11/27/18 Reported Imitrex (Sumatriptan Succinate) 100 Mg Tablet 1 Tab PO BID PRN 11/27/18 Reported Hydroxyzine Hcl 25 Mg Tablet 1 Tab PO DAILY PRN 11/27/18 Reported Diclofenac Sodium 75 Mg Tablet.dr 1 Tab PO BID 11/27/18 Reported Zolpidem Tartrate 10 Mg Tablet 10 Mg PO HS 11/27/18 Reported Lisinopril 10 Mg Tablet 1 Tab PO HS 06/14/18 Reported Gabapentin 800 Mg Tablet 1 Tab PO BID 06/17/14 Reported Cyclobenzaprine Hcl 10 Mg Tablet 1 Tab PO BID PRN 06/17/14 Reported Colestipol Hcl 1 Gm Tablet 1 Gm PO BID 06/17/14 Reported Tramadol Hcl 50 Mg Tablet 1 Tab PO BID 06/17/14 Reported Impression . 1. Dyspnea, multifactorial in etiology including obesity, deconditioning, asthma. 2. Abnormal CT of the chest. She does have bilateral pulmonary nodules up to 3 mm, has been stable since 2019. 4. Nausea, vomiting? etiology. 5. Hypertension. 6. Gastroesophageal reflux disease. 7. Renal insufficiency. Need to rule out acute kidney injury versus chronic kidney disease. 8. cough , ? aspiration Plan . 1. She has a history of [id number] smoking. I do recommend a followup CT of the chest in 1 yr 2. DuoNeb. 3. inhaled corticosteroid, Pulmicort. 4. Pepcid IV for gastroesophageal reflux disease. 5. GI rec 6. Cardiology on the case. 7. I have advised her to exercise and lose weight. We may need to repeat her sleep study. 8. The findings and recommendations were discussed with the patient AMADOU SANTOS MD Sep 22, 2020 10:29
[2020-09-22 11:00] VITALS: BP 139/66
--- NOTE | 2020-09-22 11:16 | PDOC ---
Date of Service: DATE: 09/22/20 TIME: 11:14 Subjective: Subjective: Threw up some contrast after x-ray, not feeling too good. H/o GERD (denied in past), takes no treatment. UPper abdominal soreness, also in medchest. Objective: Objective: Nurse called after I saw - reports negative x-ray, wondering about next step, whether to keep NPO - suggestion by others this might be "all in her head." EGD 2019: non-erosive gastritis. Brain MRI okay 03/2020. On Toradol per primary. Vital Signs: Vital Signs Date Time Temp Pulse Resp B/P (MAP) Pulse Ox O2 Delivery O2 Flow Rate FiO2 09/22/20 11:00 97.6 98 18 139/66 (90) 98 Room Air 97.6 Labs: Laboratory Tests Test 09/22/20 06:00 White Blood Count 4.6 x10^3/uL Red Blood Count 4.23 x10^6/uL Hemoglobin 12.2 g/dL Hematocrit 35.9 % Mean Corpuscular Volume 85 fL Mean Corpuscular Hemoglobin 29 pg Mean Corpuscular Hemoglobin Concent 34 g/dL Red Cell Distribution Width 12.9 % Platelet Count 244 x10^3/uL Neutrophils (%) (Auto) 54 % Lymphocytes (%) (Auto) 25 % Monocytes (%) (Auto) 17 % Eosinophils (%) (Auto) 3 % Basophils (%) (Auto) 1 % Neutrophils # (Auto) 2.5 x10^3/uL Lymphocytes # (Auto) 1.2 x10^3/uL Monocytes # (Auto) 0.8 x10^3/uL Eosinophils # (Auto) 0.2 x10^3/uL Basophils # (Auto) 0.0 x10^3/uL Sodium Level 144 mmol/L Potassium Level 3.8 mmol/L Chloride Level 110 mmol/L Carbon Dioxide Level 25 mmol/L Anion Gap 9 Blood Urea Nitrogen 12 mg/dL Creatinine 0.9 mg/dL Estimated GFR (Cockcroft-Gault) 62.6 Glucose Level 94 mg/dL Calcium Level 8.4 mg/dL Imaging: C/A/P CT IMPRESSION: 1. No acute thoracic, abdominal or pelvic finding. 2. Numerous tiny bilateral pulmonary nodules measuring up to 3 mm in a predominantly peripheral distribution. This is similar compared to studies dating to 05/03/2019, favoring benignity. CT follow-up is recommended in 6-12 months. 3. Stable high right paratracheal nodule. The attenuation of this nodule sugge sts that may be due to ectopic thyroid parenchyma rather than a pathologically enlarged lymph node. The nearly two-year course of stability favors benignity. 4. Simple appearing left renal cyst. Follow-up is not routinely performed for simple cysts. 5. Sigmoid diverticulosis. 6. Mild pulmonary emphysema. UGI IMPRESSION: Unremarkable upper gastric intestinal series exam. Specifically, no findings correlate with the reported history of recurrent nausea and vomiting. PE: GEN: doesn't feel well - has washcloth on forehead, emesis basin w/ small amount of white contrast/barium LUNGS: CTAB HEART: RRR ABD: soft, sore in epigastrium tracking up center of chest NEURO/PSYCH: A & O 3 A/P: Recurrent n/v, ACP GERD CRC screen, ?h/o polyps - last ?~5 years ago S/p juvenal -- Imaging unrevealing. ?proceed w/ GES as discussed in consult note - will discuss w/ Dr. Talley today - still vomiting so may be difficult to complete. Try IV PPI in place of H2 eleno. Justicifation of Admission Dx: Justifications for Admission: Justification of Admission Dx: Yes Stroke - Ischemic: Stroke-Ischemic VICTORIA MAHER Sep 22, 2020 11:16
--- NOTE | 2020-09-22 11:51 | PDOC ---
[employer] PROGRESS NOTE Date of Service DOS: DATE: 09/22/20 TIME: 11:42 Chief Complaint Chief Complaint Chest pain Nausea and vomiting Diarrhea Leg cramps Headache History of Present Illness History of Present Illness 09/22/2020: Patient seen and examined Has just returned from having UGI series done Since UGI was negative will likely have GES performed Discussed with RN Discussed with case management Chart reviewed 09/21/2020: Patient seen and examined Complains of persistent nausea and vomiting Appears uncomfortable lying in bed Discussed with RN Chart reviewed Vitals/I&O Vitals/I&O: Vital Signs Date Time Temp Pulse Resp B/P (MAP) Pulse Ox O2 Delivery O2 Flow Rate FiO2 09/22/20 11:00 97.6 98 18 139/66 (90) 98 Room Air 97.6 I & O 09/21/20 09/21/20 09/22/20 15:00 23:00 07:00 Intake Total 450 ml 0 ml Output Total 700 ml 150 ml Balance 450 ml -700 ml -150 ml Physical Exam General: Alert, Cooperative, Other (Appears uncomfortable) Heart: Regular rate, No murmurs Lungs: Clear Abdomen: Soft, No tenderness Extremities: No clubbing, No edema, Normal pulses Skin: No rashes, No significant lesion Labs Labs: Laboratory Tests Test 09/22/20 06:00 White Blood Count 4.6 x10^3/uL (4.0-11.0) Red Blood Count 4.23 x10^6/uL (3.50-5.40) Hemoglobin 12.2 g/dL (12.0-15.5) Hematocrit 35.9 % (36.0-47.0) Mean Corpuscular Volume 85 fL (79-100) Mean Corpuscular Hemoglobin 29 pg (25-35) Mean Corpuscular Hemoglobin Concent 34 g/dL (31-37) Red Cell Distribution Width 12.9 % (11.5-14.5) Platelet Count 244 x10^3/uL (140-400) Neutrophils (%) (Auto) 54 % (31-73) Lymphocytes (%) (Auto) 25 % (24-48) Monocytes (%) (Auto) 17 % (0-9) Eosinophils (%) (Auto) 3 % (0-3) Basophils (%) (Auto) 1 % (0-3) Neutrophils # (Auto) 2.5 x10^3/uL (1.8-7.7) Lymphocytes # (Auto) 1.2 x10^3/uL (1.0-4.8) Monocytes # (Auto) 0.8 x10^3/uL (0.0-1.1) Eosinophils # (Auto) 0.2 x10^3/uL (0.0-0.7) Basophils # (Auto) 0.0 x10^3/uL (0.0-0.2) Sodium Level 144 mmol/L (136-145) Potassium Level 3.8 mmol/L (3.5-5.1) Chloride Level 110 mmol/L (98-107) Carbon Dioxide Level 25 mmol/L (21-32) Anion Gap 9 (6-14) Blood Urea Nitrogen 12 mg/dL (7-20) Creatinine 0.9 mg/dL (0.6-1.0) Estimated GFR (Cockcroft-Gault) 62.6 Glucose Level 94 mg/dL (70-99) Calcium Level 8.4 mg/dL (8.5-10.1) Review of Systems Review of Systems: Reports n/v, headache. Denies weakness. Assessment and Plan Assessmemt and Plan Assessment: Chest pain Incidental finding of pulmonary nodule. Intractable n/v Abdominal pain Leg cramping Headaches Plan: Workup in progress Gastric emptying study per GI Continue Toradol PRN for pain Zofran and Compazine PRN for nausea Subspecialist input appreciated IV Protonix per GI Cardiac monitoring Serial enzymes Serial EKGs Home meds DVT prophylaxis Full code Comment Review of Relevant I have reviewed the following items tori (where applicable) has been applied. Medications: Current Medications Medications (Trade) Dose Ordered Sig/Eder Route PRN Reason Start Time Stop Time Status Last Admin Dose Admin Famotidine (Pepcid Vial) 20 mg QHS IVP 09/21/20 21:00 09/22/20 11:28 DC 09/21/20 21:20 Ketorolac Tromethamine (Toradol 30mg Vial) 30 mg PRN Q6HRS PRN IVP INFLAMMATION 09/21/20 13:15 09/26/20 13:14 09/22/20 07:19 Barium Sulfate (Liquid E-Z Paque) 355 ml 1X ONCE PO 4/26/21 09:15 09/22/20 09:16 DC 09/22/20 09:40 Simethicone/ Sodium Bicarb/ Citric Ac (E-Z-Gas) 1 packet 1X ONCE PO 09/22/20 09:15 09/22/20 09:16 DC 09/22/20 09:40 Justifications for Admission Other Justification CVA WESLY BOSS III DO Sep 22, 2020 11:51
--- NOTE | 2020-09-22 12:25 | PDOC ---
AURORA GUTIERREZ MARY 09/22/20 1225: CARDIO Progress Notes Date and Time Date of Service 09/22/20 Time of Evaluation 1220 Subjective Subjective: Other (nausea persists, having some sharp, epigastric pains) Vitals Vitals Vital Signs Date Time Temp Pulse Resp B/P (MAP) Pulse Ox O2 Delivery O2 Flow Rate FiO2 09/22/20 11:00 97.6 98 18 139/66 (90) 98 Room Air 97.6 Weight Weight [ ] Input and Output Intake and Output Intake and Output 09/22/20 07:00 Intake Total 450 ml Output Total 850 ml Balance -400 ml Intake Oral 450 ml Output Urine Total 850 ml # Voids 1 # Bowel Movements 1 Laboratory Labs Laboratory Tests Test 09/22/20 06:00 White Blood Count 4.6 x10^3/uL (4.0-11.0) Red Blood Count 4.23 x10^6/uL (3.50-5.40) Hemoglobin 12.2 g/dL (12.0-15.5) Hematocrit 35.9 % (36.0-47.0) Mean Corpuscular Volume 85 fL (79-100) Mean Corpuscular Hemoglobin 29 pg (25-35) Mean Corpuscular Hemoglobin Concent 34 g/dL (31-37) Red Cell Distribution Width 12.9 % (11.5-14.5) Platelet Count 244 x10^3/uL (140-400) Neutrophils (%) (Auto) 54 % (31-73) Lymphocytes (%) (Auto) 25 % (24-48) Monocytes (%) (Auto) 17 % (0-9) Eosinophils (%) (Auto) 3 % (0-3) Basophils (%) (Auto) 1 % (0-3) Neutrophils # (Auto) 2.5 x10^3/uL (1.8-7.7) Lymphocytes # (Auto) 1.2 x10^3/uL (1.0-4.8) Monocytes # (Auto) 0.8 x10^3/uL (0.0-1.1) Eosinophils # (Auto) 0.2 x10^3/uL (0.0-0.7) Basophils # (Auto) 0.0 x10^3/uL (0.0-0.2) Sodium Level 144 mmol/L (136-145) Potassium Level 3.8 mmol/L (3.5-5.1) Chloride Level 110 mmol/L (98-107) Carbon Dioxide Level 25 mmol/L (21-32) Anion Gap 9 (6-14) Blood Urea Nitrogen 12 mg/dL (7-20) Creatinine 0.9 mg/dL (0.6-1.0) Estimated GFR (Cockcroft-Gault) 62.6 Glucose Level 94 mg/dL (70-99) Calcium Level 8.4 mg/dL (8.5-10.1) Physical Exam HEENT: Neck Supple W Full Motion Chest: Symmetric LUNGS: Clear to Auscultation Heart: RRR Extremities: No Edema Neurology: alert, oriented, follow commands Assessment Assessment 1. Recurrent nausea/vomiting. Possible GES 2. Chest pain, atypical. AMI ruled out. Most probable GI in nature with above. Treadmill MPI 04/17 without evidence of ischemia or infarct. Echo 03/18 with preserved LV systolic function 3. Hypertension; controlled 4. Chronic dyspnea probably related to COVID 5. Hyperlipidemia 6. PAFIB in setting of COVID. Not on OAC as duration of AFIB was very brief is setting of acute illness/COVID PNA. Event monitor 02/2019 without AFIB. Recommendations Resume ASA therapy and metoprolol for rate control when able to take oral Outpatient stress testing, October 06 at 8:45am, as previously arranged Supportive care Justicifation of Admission Dx: Justifications for Admission: Justification of Admission Dx: Yes Stroke - Ischemic: Stroke-Ischemic WILLIE ZAVALETA MD 09/23/20 0939: CARDIO Progress Notes Plan Plan Late entry for 09/22/2020 Patient seen and examined. Agree with above nurse practitioner note. AURORA GUTIERREZ APRN Sep 22, 2020 12:25 WILLIE ZAVALETA MD Sep 23, 2020 09:39
[2020-09-22] MEDS: ONDANSETRON PF 4 MG/2 ML VIAL. IVP PRN (14:41)
[2020-09-22 15:00] VITALS: BP 154/71
--- NOTE | 2020-09-22 15:31 | NUR ---
SW following. Discussed with RN, pt from home, room air, NPO. GI, cardiology and pulmonology following. RN advised no SW needs at this time. SW will continue to follow.
[2020-09-22] MEDS ORDERED: PANTOPRAZOLE IV PUSH 40 MG VIAL. IVP SCH (16:30)
[2020-09-22] MEDS ORDERED: hydrOXYzine 25 MG TABLET PO PRN (17:00)
[2020-09-22] MEDS ORDERED: CYCLOBENZAPRINE 10 MG TABLET. PO PRN (17:00)
[2020-09-22] MEDS ORDERED: DICYCLOMINE HCL 10 MG CAPSULE PO PRN (17:00)
[2020-09-22 19:30] VITALS: BP 142/65
[2020-09-22] MEDS ORDERED: LISINOPRIL 10 MG TABLET PO SCH (21:00)
[2020-09-22] MEDS ORDERED: ZOLPIDEM 5 MG TABLET. PO SCH (21:00)
[2020-09-22] MEDS ORDERED: traMADol 50 MG TABLET PO PRN (21:00)
[2020-09-22] MEDS: GABAPENTIN 400 MG CAPSULE. PO SCH (21:59)
[2020-09-22] MEDS: METOPROLOL TART IMMED RELEASE 25 MG TABLET. PO SCH (21:59)
[2020-09-22] MEDS: COLESTIPOL HCL 1 GM TABLET PO SCH (22:00)
[2020-09-22 22:35] VITALS: BP 138/61
[2020-09-23 03:20] VITALS: BP 127/61
[2020-09-23 06:05] LABS: BASO # 0.1 x10^3/uL (0.0-0.2); BASO % 1 % (0-3); EOS # 0.3 x10^3/uL (0.0-0.7); EOS % 6 % (0-3); HEMATOCRIT 40.8 % (36.0-47.0); HEMOGLOBIN 13.2 g/dL (12.0-15.5); LYMPH # 1.6 x10^3/uL (1.0-4.8); LYMPH % 30 % (24-48); MEAN CORPUSCULAR HEMOGLOBIN 28 pg (25-35); MEAN CORPUSCULAR HGB CONC 32 g/dL (31-37); MEAN CORPUSCULAR VOLUME 87 fL (79-100); MONO # 0.6 x10^3/uL (0.0-1.1); MONO % 11 % (0-9); NEUT # 2.6 x10^3/uL (1.8-7.7); NEUT % 51 % (31-73); PLATELET COUNT 250 x10^3/uL (140-400); RED CELL DISTRIBUTION WIDTH 13.3 % (11.5-14.5); WHITE BLOOD COUNT 5.1 x10^3/uL (4.0-11.0)
[2020-09-23 06:17] LABS: CALCIUM 9.6 mg/dL (8.5-10.1); CREATININE 0.8 mg/dL (0.6-1.0); GFR 71.8; POTASSIUM 3.8 mmol/L (3.5-5.1)
[2020-09-23 07:00] VITALS: BP 128/66
[2020-09-23] MEDS: IPRATRPIUM/ALBUTEROL 0.5/2.5MG 3 ML NEBU. NEB SCH ×2 (07:46→11:47)
[2020-09-23] MEDS: BUDESONIDE 0.5 MG/2 ML NEBU. NEB SCH (07:46)
[2020-09-23] MEDS ORDERED: PANTOPRAZOLE 40 MG TABLET.DR. PO SCH (09:00)
--- NOTE | 2020-09-23 09:26 | PDOC ---
PULMONARY PROGRESS NOTES DATE: 09/23/20 TIME: 09:25 Subjective no further vomiting mild dry cough, better Vitals Vital Signs Date Time Temp Pulse Resp B/P (MAP) Pulse Ox O2 Delivery O2 Flow Rate FiO2 09/23/20 07:55 94 Room Air 09/23/20 07:00 98.5 60 16 128/66 (86) 98.5 General: Alert, No acute distress Lungs: Clear Abdomen: Soft, Non-tender Neuro Exam: Alert Extremities: No Edema Skin: Warm Labs Laboratory Tests Test 09/22/20 06:00 09/23/20 05:10 White Blood Count 4.6 x10^3/uL (4.0-11.0) 5.1 x10^3/uL (4.0-11.0) Red Blood Count 4.23 x10^6/uL (3.50-5.40) 4.70 x10^6/uL (3.50-5.40) Hemoglobin 12.2 g/dL (12.0-15.5) 13.2 g/dL (12.0-15.5) Hematocrit 35.9 % (36.0-47.0) 40.8 % (36.0-47.0) Mean Corpuscular Volume 85 fL (79-100) 87 fL (79-100) Mean Corpuscular Hemoglobin 29 pg (25-35) 28 pg (25-35) Mean Corpuscular Hemoglobin Concent 34 g/dL (31-37) 32 g/dL (31-37) Red Cell Distribution Width 12.9 % (11.5-14.5) 13.3 % (11.5-14.5) Platelet Count 244 x10^3/uL (140-400) 250 x10^3/uL (140-400) Neutrophils (%) (Auto) 54 % (31-73) 51 % (31-73) Lymphocytes (%) (Auto) 25 % (24-48) 30 % (24-48) Monocytes (%) (Auto) 17 % (0-9) 11 % (0-9) Eosinophils (%) (Auto) 3 % (0-3) 6 % (0-3) Basophils (%) (Auto) 1 % (0-3) 1 % (0-3) Neutrophils # (Auto) 2.5 x10^3/uL (1.8-7.7) 2.6 x10^3/uL (1.8-7.7) Lymphocytes # (Auto) 1.2 x10^3/uL (1.0-4.8) 1.6 x10^3/uL (1.0-4.8) Monocytes # (Auto) 0.8 x10^3/uL (0.0-1.1) 0.6 x10^3/uL (0.0-1.1) Eosinophils # (Auto) 0.2 x10^3/uL (0.0-0.7) 0.3 x10^3/uL (0.0-0.7) Basophils # (Auto) 0.0 x10^3/uL (0.0-0.2) 0.1 x10^3/uL (0.0-0.2) Sodium Level 144 mmol/L (136-145) 147 mmol/L (136-145) Potassium Level 3.8 mmol/L (3.5-5.1) 3.8 mmol/L (3.5-5.1) Chloride Level 110 mmol/L (98-107) 110 mmol/L (98-107) Carbon Dioxide Level 25 mmol/L (21-32) 25 mmol/L (21-32) Anion Gap 9 (6-14) 12 (6-14) Blood Urea Nitrogen 12 mg/dL (7-20) 11 mg/dL (7-20) Creatinine 0.9 mg/dL (0.6-1.0) 0.8 mg/dL (0.6-1.0) Estimated GFR (Cockcroft-Gault) 62.6 71.8 Glucose Level 94 mg/dL (70-99) 92 mg/dL (70-99) Calcium Level 8.4 mg/dL (8.5-10.1) 9.6 mg/dL (8.5-10.1) Laboratory Tests Test 09/23/20 05:10 White Blood Count 5.1 x10^3/uL (4.0-11.0) Red Blood Count 4.70 x10^6/uL (3.50-5.40) Hemoglobin 13.2 g/dL (12.0-15.5) Hematocrit 40.8 % (36.0-47.0) Mean Corpuscular Volume 87 fL (79-100) Mean Corpuscular Hemoglobin 28 pg (25-35) Mean Corpuscular Hemoglobin Concent 32 g/dL (31-37) Red Cell Distribution Width 13.3 % (11.5-14.5) Platelet Count 250 x10^3/uL (140-400) Neutrophils (%) (Auto) 51 % (31-73) Lymphocytes (%) (Auto) 30 % (24-48) Monocytes (%) (Auto) 11 % (0-9) Eosinophils (%) (Auto) 6 % (0-3) Basophils (%) (Auto) 1 % (0-3) Neutrophils # (Auto) 2.6 x10^3/uL (1.8-7.7) Lymphocytes # (Auto) 1.6 x10^3/uL (1.0-4.8) Monocytes # (Auto) 0.6 x10^3/uL (0.0-1.1) Eosinophils # (Auto) 0.3 x10^3/uL (0.0-0.7) Basophils # (Auto) 0.1 x10^3/uL (0.0-0.2) Sodium Level 147 mmol/L (136-145) Potassium Level 3.8 mmol/L (3.5-5.1) Chloride Level 110 mmol/L (98-107) Carbon Dioxide Level 25 mmol/L (21-32) Anion Gap 12 (6-14) Blood Urea Nitrogen 11 mg/dL (7-20) Creatinine 0.8 mg/dL (0.6-1.0) Estimated GFR (Cockcroft-Gault) 71.8 Glucose Level 92 mg/dL (70-99) Calcium Level 9.6 mg/dL (8.5-10.1) Medications Active Scripts Medications Dose Route/Sig Max Daily Dose Days Date Category Hydrocodone-Apap 5-325 (Hydrocodone Bit/Acetaminophen) 1 Tab Tablet 1 Tab PO PRN Q6HRS PRN 09/20/20 Reported Endocet 10-325 Mg Tablet (Oxycodone Hcl/Acetaminophen) 1 Each Tablet 1 Tab PO QIDPRN PRN MDD 4 Tablet(s) 5 09/20/20 Reported Albuterol Sulfate Conc Neb Soln (Albuterol Sulfate) 2.5 Mg/0.5 Ml Vial.neb 1 Vial NEB Q6HRS 09/20/20 Reported Budesonide 0.25 Mg/2 Ml Ampul.neb 1 Vial NEB BID 09/20/20 Reported Metoprolol Tartrate 25 Mg Tablet 25 Mg PO BID 04/15/19 Reported Fiorinal 50-325-40 Mg Capsule (Butalbital/Aspirin/Caffeine) 1 Each Capsule 1 Each PO Q6HRS PRN 03/27/19 Rx Dicyclomine Hcl 10 Mg Capsule 1 Cap PO BID PRN 11/27/18 Reported Imitrex (Sumatriptan Succinate) 100 Mg Tablet 1 Tab PO BID PRN 11/27/18 Reported Hydroxyzine Hcl 25 Mg Tablet 1 Tab PO DAILY PRN 11/27/18 Reported Diclofenac Sodium 75 Mg Tablet.dr 1 Tab PO BID 11/27/18 Reported Zolpidem Tartrate 10 Mg Tablet 10 Mg PO HS 11/27/18 Reported Lisinopril 10 Mg Tablet 1 Tab PO HS 06/14/18 Reported Gabapentin 800 Mg Tablet 1 Tab PO BID 06/17/14 Reported Cyclobenzaprine Hcl 10 Mg Tablet 1 Tab PO BID PRN 06/17/14 Reported Colestipol Hcl 1 Gm Tablet 1 Gm PO BID 06/17/14 Reported Tramadol Hcl 50 Mg Tablet 1 Tab PO BID 06/17/14 Reported Impression . 1. Dyspnea, multifactorial in etiology including obesity, deconditioning, asthma. 2. Abnormal CT of the chest. She does have bilateral pulmonary nodules up to 3 mm, has been stable since 2019. 4. Nausea, vomiting? etiology.,resolved 5. Hypertension. 6. Gastroesophageal reflux disease. 7. Renal insufficiency. 8. cough ,improved Plan . 1. She has a history of [id number] smoking. I do recommend a followup CT of the chest in 1 yr 2. DuoNeb. 3. inhaled corticosteroid, Pulmicort. 4. Pepcid IV for gastroesophageal reflux disease. 5. GI rec 6. Cardiology on the case. 7. I have advised her to exercise and lose weight. We may need to repeat her sleep study. 8. The findings and recommendations were discussed with the patient AMADOU SANTOS MD Sep 23, 2020 09:26
[2020-09-23] MEDS: COLESTIPOL HCL 1 GM TABLET PO SCH (09:40)
[2020-09-23] MEDS: METOPROLOL TART IMMED RELEASE 25 MG TABLET. PO SCH (09:40)
[2020-09-23] MEDS: GABAPENTIN 400 MG CAPSULE. PO SCH (09:41)
--- NOTE | 2020-09-23 10:41 | PDOC ---
Date of Service: DATE: 09/23/20 TIME: 10:38 Subjective: Subjective: Feeling better. No n/v, less discomfort. Going to try regular food. Objective: Objective: Dr. Cody called asking if she needs GES. Plans to DC. Nurse asks about PPI dosing on discharge. Vital Signs: Vital Signs Date Time Temp Pulse Resp B/P (MAP) Pulse Ox O2 Delivery O2 Flow Rate FiO2 09/23/20 09:40 60 128/66 09/23/20 08:00 Room Air 09/23/20 07:55 94 09/23/20 07:00 98.5 16 98.5 Labs: Laboratory Tests Test 09/23/20 05:10 White Blood Count 5.1 x10^3/uL Red Blood Count 4.70 x10^6/uL Hemoglobin 13.2 g/dL Hematocrit 40.8 % Mean Corpuscular Volume 87 fL Mean Corpuscular Hemoglobin 28 pg Mean Corpuscular Hemoglobin Concent 32 g/dL Red Cell Distribution Width 13.3 % Platelet Count 250 x10^3/uL Neutrophils (%) (Auto) 51 % Lymphocytes (%) (Auto) 30 % Monocytes (%) (Auto) 11 % Eosinophils (%) (Auto) 6 % Basophils (%) (Auto) 1 % Neutrophils # (Auto) 2.6 x10^3/uL Lymphocytes # (Auto) 1.6 x10^3/uL Monocytes # (Auto) 0.6 x10^3/uL Eosinophils # (Auto) 0.3 x10^3/uL Basophils # (Auto) 0.1 x10^3/uL Sodium Level 147 mmol/L Potassium Level 3.8 mmol/L Chloride Level 110 mmol/L Carbon Dioxide Level 25 mmol/L Anion Gap 12 Blood Urea Nitrogen 11 mg/dL Creatinine 0.8 mg/dL Estimated GFR (Cockcroft-Gault) 71.8 Glucose Level 92 mg/dL Calcium Level 9.6 mg/dL PE: GEN: NAD - looks more comfortable LUNGS: CTAB HEART: RRR ABD: S/ND/NT NEURO/PSYCH: A & O 3 A/P: Recurrent n/v, ACP, h/o GERD -- Trying advance diet, then seems plans to DC. Currently no plans for inpt [facility]. Continue PPI for GERD - has BID ordered here, probably okay to decrease to QD on discharge. Justicifation of Admission Dx: Justifications for Admission: Justification of Admission Dx: Yes Stroke - Ischemic: Stroke-Ischemic VICTORIA MAHER Sep 23, 2020 10:41
--- NOTE | 2020-09-23 10:58 | NUR ---
SS following for discharge planning. SS reviewed pt chart and discussed with pt RN. Pt is from home with spouse and is currently on room air. Probable discharge to home today per RN. No dialysis social worker needs identified at this time. Pt will discharge to home with self care when medically ready. SS will continue to follow for discharge planning.
[2020-09-23 11:00] VITALS: BP 142/64
--- NOTE | 2020-09-23 12:05 | PDOC ---
[employer] PROGRESS NOTE Date of Service DOS: DATE: 09/23/20 TIME: 12:01 Chief Complaint Chief Complaint Chest pain Nausea and vomiting Diarrhea Leg cramps Headache History of Present Illness History of Present Illness 09/23/2020: Patient seen and examined Resting comfortably in bed GES not necessary at this time per GI Reports overall improvement in symptoms and agreeable with plan for discharge home today Discussed with GI Discussed with RN and case management Chart reviewed 09/22/2020: Patient seen and examined Has just returned from having UGI series done Since UGI was negative will likely have GES performed Discussed with RN Discussed with case management Chart reviewed 09/21/2020: Patient seen and examined Complains of persistent nausea and vomiting Appears uncomfortable lying in bed Discussed with RN Chart reviewed Vitals/I&O Vitals/I&O: Vital Signs Date Time Temp Pulse Resp B/P (MAP) Pulse Ox O2 Delivery O2 Flow Rate FiO2 09/23/20 11:48 99 Room Air 09/23/20 11:00 98.6 59 16 142/64 (90) 98.6 I & O 09/22/20 09/22/20 09/23/20 15:00 23:00 07:00 Intake Total 0 ml 200 ml 100 ml Output Total 360 ml Balance -360 ml 200 ml 100 ml Physical Exam General: Alert, Cooperative, No acute distress, Other Heart: Regular rate, No murmurs Lungs: Clear Abdomen: Soft, No tenderness Extremities: No clubbing, No edema, Normal pulses Skin: No rashes, No significant lesion Labs Labs: Laboratory Tests Test 09/23/20 05:10 White Blood Count 5.1 x10^3/uL (4.0-11.0) Red Blood Count 4.70 x10^6/uL (3.50-5.40) Hemoglobin 13.2 g/dL (12.0-15.5) Hematocrit 40.8 % (36.0-47.0) Mean Corpuscular Volume 87 fL (79-100) Mean Corpuscular Hemoglobin 28 pg (25-35) Mean Corpuscular Hemoglobin Concent 32 g/dL (31-37) Red Cell Distribution Width 13.3 % (11.5-14.5) Platelet Count 250 x10^3/uL (140-400) Neutrophils (%) (Auto) 51 % (31-73) Lymphocytes (%) (Auto) 30 % (24-48) Monocytes (%) (Auto) 11 % (0-9) Eosinophils (%) (Auto) 6 % (0-3) Basophils (%) (Auto) 1 % (0-3) Neutrophils # (Auto) 2.6 x10^3/uL (1.8-7.7) Lymphocytes # (Auto) 1.6 x10^3/uL (1.0-4.8) Monocytes # (Auto) 0.6 x10^3/uL (0.0-1.1) Eosinophils # (Auto) 0.3 x10^3/uL (0.0-0.7) Basophils # (Auto) 0.1 x10^3/uL (0.0-0.2) Sodium Level 147 mmol/L (136-145) Potassium Level 3.8 mmol/L (3.5-5.1) Chloride Level 110 mmol/L (98-107) Carbon Dioxide Level 25 mmol/L (21-32) Anion Gap 12 (6-14) Blood Urea Nitrogen 11 mg/dL (7-20) Creatinine 0.8 mg/dL (0.6-1.0) Estimated GFR (Cockcroft-Gault) 71.8 Glucose Level 92 mg/dL (70-99) Calcium Level 9.6 mg/dL (8.5-10.1) Review of Systems Review of Systems: Denies nausea, vomiting, headache, chest pain, shortness of breath. Assessment and Plan Assessmemt and Plan Assessment: Chest pain Incidental finding of pulmonary nodule. N/V - improving Abdominal pain Leg cramping Headaches Plan: Hopeful discharge home today For now: Continue Toradol PRN for pain Zofran and Compazine PRN for nausea Transition IV Protonix to PO QD Encourage PO intake Cardiac monitoring Home meds DVT prophylaxis Full code Comment Review of Relevant I have reviewed the following items tori (where applicable) has been applied. Medications: Current Medications Medications (Trade) Dose Ordered Sig/Eder Route PRN Reason Start Time Stop Time Status Last Admin Dose Admin Pantoprazole Sodium (PROTONIX VIAL for IV PUSH) 40 mg BIDAC IVP 09/22/20 16:30 09/23/20 08:53 DC 09/22/20 14:42 Colestipol HCl (Colestid) 1 gm BID@1000,2200 PO 09/22/20 22:00 09/23/20 09:40 Hydroxyzine HCl (Atarax) 25 mg DAILY PRN PO ITCHING 09/22/20 17:00 09/23/20 01:23 Lisinopril (Prinivil) 10 mg HS PO 09/22/20 21:00 09/22/20 21:59 Metoprolol Tartrate (Lopressor) 25 mg BID PO 09/22/20 21:00 09/23/20 09:40 Sumatriptan Succinate (Imitrex) 100 mg BID PRN PO MIGRAIN HEADACHE 09/22/20 17:00 09/23/20 09:43 Gabapentin (Neurontin) 800 mg BID PO 09/22/20 21:00 09/23/20 09:41 Zolpidem Tartrate (Ambien) 5 mg HS PO 09/22/20 21:00 09/22/20 21:59 Pantoprazole Sodium (Protonix) 40 mg BID PO 09/23/20 09:00 09/23/20 09:40 Justifications for Admission Other Justification RAULA WESLY BOSS III DO Sep 23, 2020 12:05
[2020-09-23] MEDS ORDERED: PANT40TA77 PO (12:30)
--- NOTE | 2020-09-23 12:32 | SNU/HH DC ---
DISCHARGE WITH HOME HEALTH DISCHARGE INFORMATION: Final Diagnosis: Problems Medical Problems: (1) Back pain Status: Acute (2) Chest pain Status: Acute (3) Nausea and vomiting Status: Acute Condition on Discharge: Stable CODE STATUS: Code Status: Full HOME HEALTH: Face to Face: I certify this patient is under my care and that I, or a nurse practitioner or physician's assistant buyer working with me, had a face to face encounter that meets the physician face to face encounter requirements with this patient on []. Medical Complications: Other (Intractable nausea) Mcc For: Assess & Educate Safety RN For Eval/Treatment: Yes Physical Therapy For: Evalulation/Treatment Home Health Aide For: Self-care ELECTRIC WELDER HELPER For: Community Resources Pt Meets Homebound Status: Poor coordination w/ amb. POST DISCHARGE ORDERS: Activity Instructions for Disc: Activity as tolerated Weight Bearing Status after Di: No restrictions DIET AFTER DISCHARGE: Regular CHECKS AFTER DISCHARGE: Checks after discharge: Check blood press - daily, Check blood sugar, ac/hs, Check your Temp as needed TREATMENT/EQUIPMENT ORDERS: Adaptive Equipment Issued: None CERTIFICATION STATEMENT: Certification Statement: Certification Statement: Based on the above finding, I certify that this patient is confined to the home and needs intermittent residential care, physical therapy and/or speech therapy, or continues to need occupational therapy.~ This patient is under my care, and I have initiated the establishment of the plan of care.~ This patient will be followed by myself or a community physician who will periodically review the plan of care. Home Meds Active Scripts Pantoprazole Sodium (PANTOPRAZOLE SODIUM ) 40 Mg Tablet.dr 40 MG PO BID for gerd for 30 Days, #60 TAB.SR Prov:WESLY BOSS III DO 09/23/20 Butalbital/Aspirin/Caffeine (FIORINAL 50-325-40 MG CAPSULE) 1 Each Capsule, 1 EACH PO Q6HRS PRN for HEADACHE, #12 CAP Prov:VETO THOMAS Jr. DO 03/27/19 Reported Medications Hydrocodone Bit/Acetaminophen (HYDROCODONE-APAP 5-325 ) 1 Tab Tablet, 1 TAB PO PRN Q6HRS PRN for PAIN, TAB 0 Refills 09/20/20 Oxycodone Hcl/Acetaminophen (ENDOCET 10-325 MG TABLET) 1 Each Tablet, 1 TAB PO QIDPRN PRN for pain MDD 4 Tablet(s) for 5 Days, #20 TAB 0 Refills 09/20/20 Albuterol Sulfate (ALBUTEROL SULFATE CONC NEB SOLN) 2.5 Mg/0.5 Ml Vial.neb, 1 VIAL NEB Q6HRS for , #120 VIAL 5 Refills 09/20/20 Budesonide (BUDESONIDE) 0.25 Mg/2 Ml Ampul.neb, 1 VIAL NEB BID for , #60 ML 09/20/20 Metoprolol Tartrate (METOPROLOL TARTRATE) 25 Mg Tablet, 25 MG PO BID for FOR HYPERTENSION, #60 TAB 0 Refills 04/15/19 Dicyclomine Hcl (DICYCLOMINE HCL) 10 Mg Capsule, 1 CAP PO BID PRN for SEE COMMENTS, #90 CAP 11 Refills 11/27/18 Sumatriptan Succinate (IMITREX) 100 Mg Tablet, 1 TAB PO BID PRN for HEADACHE, #9 TAB 1 Refill 11/27/18 Hydroxyzine Hcl (HYDROXYZINE HCL) 25 Mg Tablet, 1 TAB PO DAILY PRN for ITCHING, #30 TAB 11/27/18 Diclofenac Sodium (DICLOFENAC SODIUM) 75 Mg Tablet.dr, 1 TAB PO BID for headaches, #60 TAB 1 Refill 11/27/18 Zolpidem Tartrate (ZOLPIDEM TARTRATE) 10 Mg Tablet, 10 MG PO HS for sleeping, TAB 0 Refills 11/27/18 Lisinopril (LISINOPRIL) 10 Mg Tablet, 1 TAB PO HS for hypertension, TAB 06/14/18 Gabapentin (GABAPENTIN) 800 Mg Tablet, 1 TAB PO BID for Nerve pain, TAB 06/17/14 Cyclobenzaprine Hcl (CYCLOBENZAPRINE HCL) 10 Mg Tablet, 1 TAB PO BID PRN for MUSCLE SPASMS, TAB 06/17/14 Colestipol Hcl (COLESTIPOL HCL) 1 Gm Tablet, 1 GM PO BID for Cholesterol 06/17/14 Tramadol Hcl (TRAMADOL HCL) 50 Mg Tablet, 1 TAB PO BID for Pain, TAB 06/17/14 WESLY BOSS III DO Sep 23, 2020 12:32
--- NOTE | 2020-09-23 12:58 | PDOC ---
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 09/23/20 1258: CARDIO Progress Notes Date and Time Date of Service 09/23/2020 Time of Evaluation 1230 Subjective Subjective: No Chest Pain, No shortness of breath, No Palpitations Vitals Vitals Vital Signs Date Time Temp Pulse Resp B/P (MAP) Pulse Ox O2 Delivery O2 Flow Rate FiO2 09/23/20 11:48 99 Room Air 09/23/20 11:00 98.6 59 16 142/64 (90) 98.6 Weight Weight [ ] Input and Output Intake and Output Intake and Output 09/23/20 07:00 Intake Total 300 ml Output Total 360 ml Balance -60 ml Intake Oral 300 ml Output Urine Total 360 ml # Voids 3 # Bowel Movements 2 Laboratory Labs Laboratory Tests Test 09/23/20 05:10 White Blood Count 5.1 x10^3/uL (4.0-11.0) Red Blood Count 4.70 x10^6/uL (3.50-5.40) Hemoglobin 13.2 g/dL (12.0-15.5) Hematocrit 40.8 % (36.0-47.0) Mean Corpuscular Volume 87 fL (79-100) Mean Corpuscular Hemoglobin 28 pg (25-35) Mean Corpuscular Hemoglobin Concent 32 g/dL (31-37) Red Cell Distribution Width 13.3 % (11.5-14.5) Platelet Count 250 x10^3/uL (140-400) Neutrophils (%) (Auto) 51 % (31-73) Lymphocytes (%) (Auto) 30 % (24-48) Monocytes (%) (Auto) 11 % (0-9) Eosinophils (%) (Auto) 6 % (0-3) Basophils (%) (Auto) 1 % (0-3) Neutrophils # (Auto) 2.6 x10^3/uL (1.8-7.7) Lymphocytes # (Auto) 1.6 x10^3/uL (1.0-4.8) Monocytes # (Auto) 0.6 x10^3/uL (0.0-1.1) Eosinophils # (Auto) 0.3 x10^3/uL (0.0-0.7) Basophils # (Auto) 0.1 x10^3/uL (0.0-0.2) Sodium Level 147 mmol/L (136-145) Potassium Level 3.8 mmol/L (3.5-5.1) Chloride Level 110 mmol/L (98-107) Carbon Dioxide Level 25 mmol/L (21-32) Anion Gap 12 (6-14) Blood Urea Nitrogen 11 mg/dL (7-20) Creatinine 0.8 mg/dL (0.6-1.0) Estimated GFR (Cockcroft-Gault) 71.8 Glucose Level 92 mg/dL (70-99) Calcium Level 9.6 mg/dL (8.5-10.1) Physical Exam HEENT: Neck Supple W Full Motion Chest: Symmetric LUNGS: Clear to Auscultation Heart: RRR (SR) Abdomen: Soft N/T Extremities: No Edema Neurology: alert, oriented, follow commands Assessment Assessment 1. Recurrent nausea/vomiting. Possible GES 2. Atypical CP: suspect GI 3. Hypertension; controlled 4. Chronic dyspnea probably related to COVID 5. Hyperlipidemia 6. PAFIB in setting of COVID. Not on OAC as duration of AFIB was very brief is setting of acute illness/COVID PNA. Event monitor 02/2019 without AFIB. Recommendations Resume ASA therapy and metoprolol for rate control when able to take oral Outpatient stress testing, October 06 at 8:45am, as previously arranged Supportive care Justicifation of Admission Dx: Justifications for Admission: Justification of Admission Dx: Yes Stroke - Ischemic: Stroke-Ischemic WILLIE ZAVALETA MD 09/24/20 0830: CARDIO Progress Notes Plan Plan The patient was seen and interviewed as well as examined at the bedside. The chart was reviewed. The case was discussed. Agree with the plan of care. 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
--- NOTE | 2020-09-23 13:00 | NUR ---
DISCHARGED PATIENT TO HOME. DISCHARGE INSTRUCTIONS GIVEN. PIV AND HEART MONITOR REMOVED. ESCORTED PATIENT OFF UNIT INTO A PRIVATE VEHICLE.
--- NOTE | 2020-09-23 20:55 | DS ---
DATE OF DISCHARGE: 09/23/2020 ADMITTING DIAGNOSES: Chest pain, right-sided heart failure, nausea, vomiting. DISCHARGE DIAGNOSES: Atypical chest pain, recurrent nausea, vomiting, suspect gastritis or gastroparesis, chronic shortness of breath after COVID-19, hypertension, hyperlipidemia, paroxysmal atrial fibrillation. CONSULTS: Cardiology and GI and pulmonary medicine. PROCEDURES: None. HOSPITAL COURSE: The patient is a pleasant, middle-aged female, who presented to the ER with chest pain and was nauseated and vomiting. We are concerned, she could be having a cardiac event. She was admitted. Her enzymes were negative. Her workup was negative, but she had persistent nausea, vomiting. Yesterday, we sent her for a upper GI, which was unremarkable. We then consider gastric emptying study but then she started eating and doing better this morning. I saw and examined her. She is at her baseline and wants to go home. We plan to discharge to home with close outpatient followup. DISPOSITION: Home. ACTIVITY: As tolerated. DIET: Low sodium. DISCHARGE MEDICATIONS: I gave her a prescription for Protonix 40 p.o. b.i.d., p.r.n. albuterol, Fiorinal 50/325-40 one q.6 hours p.r.n., colestipol 1 gram b.i.d., cyclobenzaprine 1 b.i.d., diclofenac 75 b.i.d., dicyclomine 10 b.i.d., gabapentin 800 b.i.d., p.r.n. hydrocodone/Tylenol 5/325 1 q.6h. p.r.n., hydroxyzine 25 mg p.r.n. t.i.d., lisinopril 10 a day, metoprolol 25 b.i.d., Endocet 10/325 one 1 q.i.d. p.r.n., Imitrex 1 b.i.d. p.r.n., Ultram 50 b.i.d. p.r.n. and Ambien 10 at bedtime. Total time 32 minutes. GRUPO/DELANO DR: Katie TID: [id number]
[2020-09-27] MEDS ORDERED: DICLOFENAC SODIUM 25 MG TABLET.DR PO SCH (09:00)
== END 2020-09-23 13:00 | disposition home or self-care (01) | DRG 392 ==
LOC: ER 05:16 → OBSVTOIN 08:57 → INTOOBSV 08:57 → ED HOLD 08:57 → 2 NORTH 12:46 → OBSVTOIN 09-22 13:55
PROVIDERS: ADMIT Internal Medicine; ATTEND Internal Medicine
DX: K52.9 Noninfective gastroenteritis and colitis, unspecified (principal); K31.84 Gastroparesis; E66.9 Obesity, unspecified; E78.5 Hyperlipidemia, unspecified; I11.0 Hypertensive heart disease with heart failure; I25.10 Atherosclerotic heart disease of native coronary artery without angina pectoris; I25.2 Old myocardial infarction; I48.0 Paroxysmal atrial fibrillation; J43.9 Emphysema, unspecified; J45.909 Unspecified asthma, uncomplicated; K21.9 Gastro-esophageal reflux disease without esophagitis; K57.30 Diverticulosis of large intestine without perforation or abscess without bleeding; M79.7 Fibromyalgia; M81.0 Age-related osteoporosis without current pathological fracture; N28.1 Cyst of kidney, acquired; Z82.49 Family history of ischemic heart disease and other diseases of the circulatory system; Z83.3 Family history of diabetes mellitus; Z86.16 Personal history of COVID-19; Z87.01 Personal history of pneumonia (recurrent); Z87.11 Personal history of peptic ulcer disease; Z87.891 Personal history of nicotine dependence; Z90.49 Acquired absence of other specified parts of digestive tract; Z90.710 Acquired absence of both cervix and uterus; F41.9 Anxiety disorder, unspecified; G43.909 Migraine, unspecified, not intractable, without status migrainosus; Z88.8 Allergy status to other drugs, medicaments and biological substances; Z68.28 Body mass index [BMI] 28.0-28.9, adult; Z20.822 Contact with and (suspected) exposure to COVID-19
CPT/HCPCS: 36415; 71045; 71275; 74177; 74246; 80048; 80053; 83690; 83880; 84484; 85007; 85025; 85379; 85610; 85730; 93005; 94640; 96361; 96374; 96375; 99285; C9113; G0378; G0379; J0780; J1170; J1885; J2060; J2270; J2405; J3490; J7030; Q9967; J7626

== ENCOUNTER → 2020-10-06 | Outpatient (CLI) | payer OTHER ==
[2020-09-23 11:00] VITALS: BP 142/64
[~2020-10-06] MED LIST changes: +ALBU2.5V14 NEB; +BUDE0.25 NEB; +OXYC-317 PO; +REGADENOSON 0.4 MG/5 ML DISP.SYRIN. IV ONE
--- NOTE | 2020-10-06 16:36 | RAD ---
MR#: [id number] Date of Study: 10/06/2020 Ordering Physician: WILLIE BRODERICK, Referring Physician: JORDYN ASTUDILLO Tech: RT Gideon Gutierrez) (N) APPROVED REPORT Test Type: Pharmacological Stress Nurse/Tech: Kevin Mckinney RN Test Indications: Dyspnea Cardiac History: asthma, DC, HTN, x-smoker Medications: See Electronic Medical Record Medical History: See Electronic Medical Record Resting ECG: SR Resting Heart Rate: 52 bpm Resting Blood Pressure: 99/61mmHg Pretest Chest Pain: None Nurse/Tech Notes Lungs CTA, S1S2 Consent: The procedure was explained to the patient in lay terms. Informed consent was witnessed. Braxton eout was entered into [employer] History and Stress Test performed by RT Gideon Pandya) (N) Pharm. Details Pharmacologic stress testing was performed using 0.4mg per 5ml of regadenoson given intravenously ove r 7-10 seconds. Stress Symptoms No chest pain or symptoms. POST EXERCISE Reason for Termination: Infusion complete Max HR: 74 bpm Max Blood Pressure: 124/63mmHg Blood Pressure response to exercise: Normal blood pressure response during stress. Heart Rate response to exercise: normal response Chest Pain: No. Arrhythmia: No. ST Change: No. INTERPRETATION Stress EKG Conclusion: No evidence of stress induced EKG changes. Imaging Protocol IMAGE PROTOCOL: Rest Tc-99m/stress Tc-99m 1 day Rest: Stress: Viability: Radiopharm.Tc99m [id number] Sestamibi Cpjn91vNn 31.6mCi Duration 15min. 15min. Img Date 10/06/2020 10/06/2020 Inj-Img [id number]. 60min. Rest Admin Site:IV - Right HandAdministrator:RT Gideon Pandya)(N) Stress Admin Site: IV - Right HandAdministrator: RT Gideon Pandya)(N) STRESS DATA End Diast. Vol.53.0mlAv. Heart Rate66.0bpm End Syst. Vol.8.0mlCO Index BSA0.0L/min Myocardial Vomc359.0gEject. Xcisdvsl36.0% Stress Rates Pk. Fill Rate3.79EDV/secLVtime Pk. Fill 284.24msec Pk. Empty Rate5.03ESV/secLVtime Pk. Wyggz687.99msec 06/01 Pk. Fill0.45EDV/sec Stress Scores Regional WT0.00Summed WT6.00 Regional WM0.00Summed WM1.00 The rest and stress images show normal perfusion, normal contraction and thickening. LV Perf. Quant 17 Seg. SSS0.00 17 Seg. SRS0.00 17 Seg. SDS0.00 Stress Defect Extent (% LAD)0.00Rest Defect Extent (% LAD)0.00Rev. Defect Extent (% LAD)0.00 Stress Defect Extent (% LCX) 0.00Rest Defect Extent (% LCX)0.00Rev. Defect Extent (% LCX)0.00 Stress Defect Extent (% RCA)0.00Rest Defect Extent (% RCA)0.00Rev. Defect Extent (% RCA)0.00 Stress Defect Extent (% LIGIA)0.00Rest Defect Extent (% LIGIA)0.00Rev. Defect Extent (% LIGIA)0.00 Other Information Quality:Fair Risk Assessment: Low Risk Conclusion 1. No evidence of EKG changes with stress testing. 2. Normal perfusion at stress/rest. 3. Subdiaphragmatic attenuation artifact noted. 4. Low risk study. 5. EF > 60%. Signed by : Willie Broderick, Electronically Approved : 10/06/2020 16:36:15
== END ==
LOC: NM 08:43
PROVIDERS: ATTEND Internal Medicine Cardiovascular Disease
DX: J45.909 Unspecified asthma, uncomplicated (principal); I25.2 Old myocardial infarction; I10 Essential (primary) hypertension; Z87.891 Personal history of nicotine dependence
CPT/HCPCS: 78452; 93017; A9500; J2785

== ENCOUNTER 2021-03-28 12:33 | Emergency (ER) | payer OTHER, MEDICARE ==
[~2021-03-28] VITALS: Ht 170.2 cm; Wt 85.4 kg
[~2021-03-28 12:33] MED LIST changes: +CYCL10TA19 PO; -CYCL10TA2 PO; -DIPH50CA PO; +DIPH50CA16 PO; -DOXY100C2 PO; +DOXY100C3 PO; -REGADENOSON 0.4 MG/5 ML DISP.SYRIN. IV ONE
[2021-03-28] MEDS ORDERED: fentaNYL PF VIAL 100 MCG/2 ML VIAL IVP ONE (13:15)
[2021-03-28] MEDS ORDERED: ONDANSETRON PF 4 MG/2 ML VIAL. IVP ONE (13:15)
[2021-03-28] MEDS ORDERED: IV NORMAL SALINE 1000ML BAG 1,000 ML IV SCH (13:15)
--- NOTE | 2021-03-28 13:35 | PHYS DOC ---
Past Medical History Past Medical History: Anxiety, Arthritis, Asthma, Fibromyalgia, GERD, Hyp ertension, IBS, [place], Migraines, Pneumonia, Seizure, UTI, Other Additional Past Medical Histor: GOUT,OSTEOPOROSIS,COVID-19(JULY 2019) Past Surgical History: No Surgical History Additional Past Surgical Histo: laparoscopy,CATARACTS Smoking Status: Never Smoker Alcohol Use: None Drug Use: None General Adult EDM: Chief Complaint: FLANK PAIN HPI: HPI: Patient is a 65 year old female who presents with for last 2-1/2 weeks she had some burning with urination and right flank pain that feels like somebody is "punching her in the kidney". She states that couple weeks ago she was treated for urinary tract infection but for the name of the antibiotic. She states she was not feeling better so she called her doctor who was on vacation they called her in some prednisone but she does not understand why she was given a steroid. She rates her pain an 8 out of 10. She states been taking Flexeril to see if that would help and is not helping the pain. She states he has had some nausea but no vomiting. She denies fever, body aches, vomiting, diarrhea, constipation, blood in her urine, chest pain, shortness of air, headache, dizziness or numbness or tingling or focal weakness. Review of Systems: Review of Systems: Constitutional: Denies fever or chills. [] Eyes: Denies change in visual acuity. [] HENT: Denies nasal congestion or sore throat. [] Respiratory: Denies cough or shortness of breath. [] Cardiovascular: Denies chest pain or edema. [] GI: Denies abdominal pain, +nausea, vomiting, bloody stools or diarrhea. [] : Denies dysuria. + Intermittent burning with urination [] Musculoskeletal: + Right flank back pain or denies joint pain. [] Integument: Denies rash. [] Neurologic: Denies headache, focal weakness or sensory changes. [] Endocrine: Denies polyuria or polydipsia. [] Lymphatic: Denies swollen glands. [] Psychiatric: Denies depression or anxiety. [] Heart Score: C/O Chest Pain: No Current Medications: Current Medications Medications (Trade) Dose Ordered Sig/Eder Start Time Stop Time Status Last Admin Dose Admin Fentanyl Citrate (Fentanyl 2ml Vial) 50 mcg 1X ONCE 03/28/21 13:15 03/28/21 13:18 DC Ondansetron HCl (Zofran) 4 mg 1X ONCE 03/28/21 13:15 03/28/21 13:18 DC Sodium Chloride 1,000 ml @ 1,000 mls/hr Q1H 03/28/21 13:15 03/28/21 14:14 Allergies: Allergies: Allergies Coded Allergies Type Severity Reaction Last Updated Verified atorvastatin Allergy Intermediate 03/28/21 Yes onion Allergy Intermediate 03/28/21 Yes phenytoin Allergy Intermediate rash 03/28/21 Yes Physical Exam: PE: Constitutional: Well developed, well nourished, no acute distress, non-toxic appearance. [] HENT: Normocephalic, atraumatic, bilateral external ears normal, oropharynx moist, no oral exudates, nose normal. [] Eyes: PERRLA, EOMI, conjunctiva normal, no discharge. [] Neck: Normal range of motion, no tenderness, supple, no stridor. [] Cardiovascular:Heart rate regular rhythm, no murmur [] Lungs & Thorax: Bilateral breath sounds clear to auscultation [] Abdomen: Bowel sounds normal, soft, no tenderness, no masses, no pulsatile masses. [] Skin: Warm, dry, no erythema, no rash. [] Back: No tenderness, right CVA tenderness. [] Extremities: No tenderness, no cyanosis, no clubbing, ROM intact, no edema. [] Neurologic: Alert and oriented X 3, normal motor function, normal sensory function, no focal deficits noted. [] Psychologic: Affect normal, judgement normal, mood normal. [] Current Patient Data: Vital Signs: Vital Signs Date Time Temp Pulse Resp B/P (MAP) Pulse Ox O2 Delivery O2 Flow Rate FiO2 03/28/21 12:45 98.3 61 148/67 (94) 98 Room Air 98.3 EKG: EKG: [] Radiology/Procedures: Radiology/Procedures: [] Impression: [facility] [address] [place] [address] IMAGING REPORT Signed PATIENT: EDUARDO TORRES LACCOUNT: [id number] : 1955 LOCATION: ER AGE: 65 SEX: F EXAM STATUS: REG ER ORD. PHYSICIAN: CYNTHIA BLAIR APRN REASON: RT flank pain PROCEDURE: CT ABDOMEN PELVIS WO CONTRAST EXAM: CT ABDOMEN/PELVIS WITHOUT CONTRAST. HISTORY: Right flank pain. TECHNIQUE: Computed tomography of the abdomen and pelvis was performed without intravenous contrast. One or more of the following individualized dose reduction techniques were utilized for this examination: 1. Automated exposure control. 2. Adjustment of the mA and/or kV according to patient size. 3. Use of iterative reconstruction technique. COMPARISON: 09/20/2020. FINDINGS: Lung windows through the visualized portions of the bases reveal many tiny uncalcified nodules bilaterally. These are unchanged chronically. Bone windows reveal no suspicious lesions. The gallbladder is surgically absent. The liver, spleen, pancreas, and adrenal glands are unremarkable without contrast. There are no pathologically enlarged lymph nodes. The uterus is surgically absent. There is no evidence of appendicitis. There is no small bowel obstruction. A benign cyst at the left renal lower pole measures 2.1 cm. There is no renal or ureteral calculi. IMPRESSION: 1. No renal or ureteral calculi. No cause for pain is identified. 2. Many tiny lung nodules in the bases are stable chronically and likely postinflammatory. Electronically signed by: Zaid Beasley MD (03/28/2021 2:25 PM) [facility] DICTATED and SIGNED BY: CAROLE BEASLEY MD DATE: 03/28/21 [id number] Course & Med Decision Making: Course & Med Decision Making Pertinent Labs and Imaging studies reviewed. (See chart for details) See HPI. Alert and oriented x4. Ambulatory steady gait. Speaks in full clear sentences. Skin pink warm and dry. Afebrile. Right CVA tenderness. Abdomen is soft and nontender. CT abdomen pelvis shows no acute findings. Creatinine and BUN are slightly tacos vated. She has a acute kidney injury. I went over this with Dr. Phelps and patient findings she states the patient is okay to go home. I gave her 1 bag of normal saline and Rocephin IV. She also received fentanyl, morphine, Norflex. After talking with family further patient and states that they did just have a 13-hour drive and her back started hurting after this. This could also likely be muscle spasms. Patient states she does have cyclobenzaprine at home that she can take. She states that a heating pad does help. [] Efren Disclaimer: Efren Disclaimer: This electronic medical record was generated, in whole or in part, using a voice recognition dictation system. Departure Departure Impression: Primary Impression: UTI (urinary tract infection) Qualified Codes: N39.0 - Urinary tract infection, site not specified Additional Impression: Flank pain Disposition: HOME / SELF CARE / HOMELESS Condition: STABLE Referrals: FABI FLANAGAN MD (PCP) Patient Instructions: Urinary Tract Infection Additional Instructions: Drink plenty of fluids. Take medication as prescribed and with food. Call your doctor as soon as possible to get in for a scheduled appointment. If you begin vomiting and cannot keep down any fluids return to the emergency room. Scripts Hydrocodone Bit/Acetaminophen (HYDROCODONE-APAP 5-325 ) 1 Tab Tablet 1 TAB PO PRN Q6HRS PRN for PAIN, #10 TAB 0 Refills Prov: CYNTHIA BLAIR MATERIAL MOVERS 03/28/21 Nitrofurantoin Monohyd/M-Cryst (MACROBID 100 MG CAPSULE) 100 Mg Capsule 1 CAP PO BID for 10 Days, #20 CAP 0 Refills Prov: CYNTHIA BLAIR MATERIAL MOVERS 03/28/21 CYNTHIA BLAIR APRN Mar 28, 2021 13:35
[2021-03-28 14:12] LABS: BILIRUBIN,URINE NEGATIVE (NEG); CLARITY,URINE CLEAR; COLOR,URINE YELLOW; NITRITE,URINE NEGATIVE (NEG); PROTEIN,URINE NEGATIVE (NEG-TRACE); UROBILINOGEN,URINE 0.2 mg/dL (0.2 mg/dL)
[2021-03-28 14:18] LABS: BACTERIA,URINE FEW /HPF (0-FEW); RBC,URINE 0 /HPF (0-2); WBC,URINE OCC /HPF (0-4)
--- NOTE | 2021-03-28 14:27 | RAD ---
EXAM: CT ABDOMEN/PELVIS WITHOUT CONTRAST. HISTORY: Right flank pain. TECHNIQUE: Computed tomography of the abdomen and pelvis was performed without intravenous contrast. One or more of the following individualized dose reduction techniques were utilized for this examinat ion: 1. Automated exposure control. 2. Adjustment of the mA and/or kV according to patient size. 3. Use of iterative reconstruction technique. COMPARISON: 09/20/2020. FINDINGS: Lung windows through the visualized portions of the bases reveal many tiny uncalcified nodu les bilaterally. These are unchanged chronically. Bone windows reveal no suspicious lesions. The gallbladder is surgically absent. The liver, spleen, pancreas, and adrenal glands are unremarkabl e without contrast. There are no pathologically enlarged lymph nodes. The uterus is surgically absent. There is no evidence of appendicitis. There is no small bowel obstru ction. A benign cyst at the left renal lower pole measures 2.1 cm. There is no renal or ureteral calculi. IMPRESSION: 1. No renal or ureteral calculi. No cause for pain is identified. 2. Many tiny lung nodules in the bases are stable chronically and likely postinflammatory. Electronically signed by: Zaid Beasley MD (03/28/2021 2:25 PM) [facility]
[2021-03-28 14:42] LABS: BASO # 0.1 x10^3/uL (0.0-0.2); BASO % 1 % (0-3); EOS # 0.4 x10^3/uL (0.0-0.7); EOS % 4 % (0-3); HEMATOCRIT 37.8 % (36.0-47.0); HEMOGLOBIN 12.6 g/dL (12.0-15.5); LYMPH % 23 % (24-48); MEAN CORPUSCULAR HEMOGLOBIN 29 pg (25-35); MEAN CORPUSCULAR HGB CONC 33 g/dL (31-37); MEAN CORPUSCULAR VOLUME 86 fL (79-100); MONO # 0.8 x10^3/uL (0.0-1.1); MONO % 10 % (0-9); NEUT # 5.3 x10^3/uL (1.8-7.7); NEUT % 62 % (31-73); PLATELET COUNT 305 x10^3/uL (140-400); RED BLOOD COUNT 4.41 x10^6/uL (3.50-5.40); RED CELL DISTRIBUTION WIDTH 13.3 % (11.5-14.5); WHITE BLOOD COUNT 8.5 x10^3/uL (4.0-11.0)
[2021-03-28 14:54] LABS: CALCIUM 8.7 mg/dL (8.5-10.1); CREATININE 1.1 mg/dL (0.6-1.0); GFR 49.7; POTASSIUM 4.4 mmol/L (3.5-5.1)
[2021-03-28 14:59] LABS: ALBUMIN 3.1 g/dL (3.4-5.0); ALBUMIN/GLOBULIN RATIO 0.9 (1.0-1.7); TOTAL BILIRUBIN 0.3 mg/dL (0.2-1.0); TOTAL PROTEIN 6.7 g/dL (6.4-8.2)
[2021-03-28] MEDS ORDERED: ORPHENADRINE CITRATE 60 MG/2 ML VIAL. IM ONE (15:00)
[2021-03-28] MEDS ORDERED: MORPHINE SULFATE 2 MG/ML INJ. IVP ONE (15:00)
[2021-03-28] MEDS ORDERED: NITR100C62 PO (15:11)
[2021-03-28] MEDS ORDERED: HYDR-2761 PO (15:11)
[2021-03-28] MEDS ORDERED: cefTRIAXone IV Push 1 GM VIAL. IVP ONE (15:15)
[2021-03-28 15:47] VITALS: BP 130/62
== END 2021-03-28 15:55 | disposition home or self-care (01) ==
LOC: ER 12:33
DX: N39.0 Urinary tract infection, site not specified (principal); M19.90 Unspecified osteoarthritis, unspecified site; J45.909 Unspecified asthma, uncomplicated; F41.9 Anxiety disorder, unspecified; M79.7 Fibromyalgia; K21.9 Gastro-esophageal reflux disease without esophagitis; I10 Essential (primary) hypertension; K58.9 Irritable bowel syndrome, unspecified; I25.2 Old myocardial infarction; G43.909 Migraine, unspecified, not intractable, without status migrainosus; Z87.440 Personal history of urinary (tract) infections; Z91.018 Allergy to other foods; Z88.8 Allergy status to other drugs, medicaments and biological substances
CPT/HCPCS: 36415; 74176; 80053; 81001; 83690; 85025; 87086; 96361; 96372; 96374; 96375; 99284; J0696; J2270; J2360; J2405; J3010; J7030; 99285-25

== ENCOUNTER → 2021-04-20 | Outpatient (CLI) | payer OTHER, MEDICARE ==
[2021-03-28 15:47] VITALS: BP 130/62
[~2021-04-20] MED LIST changes: +NITR100C62 PO
--- NOTE | 2021-04-20 16:33 | RAD ---
EXAM: LUMBAR SPINE 3 VIEWS. HISTORY: Low back pain COMPARISON: None. FINDINGS: A mild superior plate compression deformity at L1 appears chronic. L5 pars interarticularis defects are suspected at least on the left. Osteopenia appears moderate. Degenerative disc disease i s moderate at L5-S1. There are atherosclerotic calcifications of the aorta. IMPRESSION: 1. At least unilateral nondisplaced L5 pars interarticularis defect on the left. 2. Moderate degenerative disc disease at L5-S1. 3. Chronic mild superior plate compression fracture at L1. Electronically signed by: Zaid Beasley MD (04/20/2021 4:31 PM) [id number]
== END ==
LOC: RAD 13:58
PROVIDERS: ATTEND Family Medicine
DX: M51.37 Other intervertebral disc degeneration, lumbosacral region (principal); I70.0 Atherosclerosis of aorta; M48.56XA Collapsed vertebra, not elsewhere classified, lumbar region, initial encounter for fracture; M85.88 Other specified disorders of bone density and structure, other site
CPT/HCPCS: 72100

== ENCOUNTER 2021-05-19 09:21 | Emergency (ER) | payer OTHER, MEDICARE ==
[~2021-05-19] VITALS: Ht 170.2 cm; Wt 85.4 kg
[2021-05-19] MEDS ORDERED: DEXAMETHASONE SOD PHOS 20 MG/5 ML VIAL. IV ONE (10:00)
[2021-05-19] MEDS ORDERED: IPRATRPIUM/ALBUTEROL 0.5/2.5MG 3 ML NEBU. NEB ONE (10:00)
--- NOTE | 2021-05-19 10:22 | RAD ---
Single AP view of the chest. Comparison: 09/20/2020. Indication: Shortness of breath Findings: The heart is at the upper limits of normal but stable. There is no pneumothorax or effusion. No air space or interstitial disease. Impression: 1. No acute cardiopulmonary process. Electronically signed by: Timothy Mcnair MD (05/19/2021 10:20 AM) [id number]
[2021-05-19 10:39] LABS: BASO # 0.1 x10^3/uL (0.0-0.2); BASO % 1 % (0-3); EOS # 0.3 x10^3/uL (0.0-0.7); EOS % 3 % (0-3); HEMATOCRIT 39.1 % (36.0-47.0); HEMOGLOBIN 12.9 g/dL (12.0-15.5); LYMPH # 1.9 x10^3/uL (1.0-4.8); LYMPH % 25 % (24-48); MEAN CORPUSCULAR HEMOGLOBIN 28 pg (25-35); MEAN CORPUSCULAR HGB CONC 33 g/dL (31-37); MEAN CORPUSCULAR VOLUME 85 fL (79-100); MONO # 0.6 x10^3/uL (0.0-1.1); MONO % 7 % (0-9); NEUT % 64 % (31-73); PLATELET COUNT 317 x10^3/uL (140-400); RED BLOOD COUNT 4.58 x10^6/uL (3.50-5.40); RED CELL DISTRIBUTION WIDTH 13.1 % (11.5-14.5); WHITE BLOOD COUNT 7.8 x10^3/uL (4.0-11.0)
[2021-05-19 10:51] LABS: INFLUENZA A PATIENT NEGATIVE (NEGATIVE); INFLUENZA B PATIENT NEGATIVE (NEGATIVE)
[2021-05-19 10:59] LABS: ALBUMIN 3.8 g/dL (3.4-5.0); CALCIUM 9.4 mg/dL (8.5-10.1); CREATININE 0.9 mg/dL (0.6-1.0); GFR 62.5; POTASSIUM 4.3 mmol/L (3.5-5.1); TOTAL BILIRUBIN 0.3 mg/dL (0.2-1.0); TOTAL PROTEIN 7.7 g/dL (6.4-8.2)
[2021-05-19] MEDS ORDERED: BENZONATATE 100 MG CAPSULE. PO ONE ×3 (11:00→16:45)
[2021-05-19 11:04] LABS: BILIRUBIN,URINE NEGATIVE (NEG); CLARITY,URINE CLEAR; COLOR,URINE YELLOW; NITRITE,URINE NEGATIVE (NEG); PROTEIN,URINE NEGATIVE (NEG-TRACE); UROBILINOGEN,URINE 0.2 mg/dL (0.2 mg/dL)
[2021-05-19] MEDS: LIDOCAINE 2% PF 5 ML VIAL. NEB SCH ×3 (11:35→17:07)
[2021-05-19 11:40] LABS: BACTERIA,URINE MANY /HPF (0-FEW); RBC,URINE 0 /HPF (0-2)
[2021-05-19 11:43] LABS: BASE EXCESS ABG 1 mmol/L (-3-3); HCO3 ABG 23 mmol/L (21-28); PCO2 ABG 31 mmHg (35-46); PO2 ABG 75 mmHg (65-108); SAT O2 ABG 96 % (92-99)
[2021-05-19 11:44] LABS: FIO2 ABG 21/RA
--- NOTE | 2021-05-19 13:11 | PHYS DOC ---
Past Medical History Past Medical History: Anxiety, Arthritis, Asthma, Fibromyalgia, GERD, Hypertension, IBS, UT, Migraines, Pneumonia, Seizure, UTI, Other Additional Past Medical Histor: GOUT,OSTEOPOROSIS,COVID-19(JULY 2019) Past Surgical History: Other Additional Past Surgical Histo: laparoscopy,CATARACTS Smoking Status: Former Smoker Alcohol Use: None Drug Use: None General Adult EDM: Chief Complaint: SHORTNESS OF BREATH HPI: HPI: Patient is a 66-year-old female presents emergency department complaining of shortness of breath with cough this started this morning at 5:30 AM while she was at work at [employer]. 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 Patient denies radiation of this pain, denies episodes of diaphoresis, dizziness, syncopal or near syncopal episodes. Patient denies nausea, vomiting, diarrhea or abdominal pains. Patient denies recent fever or chills. Patient does complain of throat soreness that increases with cough. Patient reports she has been vaccinated for the flu and COVID-19 this year. Patient reports she was intubated in the ICU with the Covid virus and September 2019. Patient denies recent exposure to the Covid virus, denies other physical complaints or physical concerns. Review of Systems: Review of Systems: 14 body systems of review of systems have been reviewed. See HPI for pertinent positives and negative responses, otherwise all other systems are negative, nonpertinent or noncontributory. Constitutional: Negative except as outlined in HPI above. Skin: Negative except as outlined in HPI above. Eyes: Negative except as outlined in HPI above. HENT: Negative except as outlined in HPI above. Respiratory: Negative except as outlined in HPI above. Cardiovascular: Negative except as outlined in HPI above. GI: Negative except as outlined in HPI above. : Negative except as outlined in HPI above. Musculoskeletal: Negative except as outlined in HPI above. Integument: Negative except as outlined in HPI above. Neurologic: Negative except as outlined in HPI above. Endocrine: Negative except as outlined in HPI above. Lymphatic: Negative except as outlined in HPI above. Psychiatric: Negative except as outlined in HPI above. Heart Score: C/O Chest Pain: No Risk Factors: Risk Factors: DM, Current or recent (<one month) smoker, HTN, HLP, family history of CAD, obesity. Risk Scores: Score 0 - 3: 2.5% MACE over next 6 weeks - Discharge Home Score 4 - 6: 20.3% MACE over next 6 weeks - Admit for Clinical Observation Score 7 - 10: 72.7% MACE over next 6 weeks - Early Invasive Strategies Current Medications: Current Medications Medications (Trade) Dose Ordered Sig/Eder Start Time Stop Time Status Last Admin Dose Admin Albuterol/ Ipratropium (Duoneb) 3 ml 1X ONCE 05/19/21 10:00 05/19/21 10:01 DC 05/19/21 10:19 3 ML Benzonatate (Tessalon Perle) 100 mg STK-MED ONCE 05/19/21 11:12 05/19/21 11:12 DC Dexamethasone Sodium Phosphate (Decadron) 10 mg 1X ONCE 05/19/21 10:00 05/19/21 10:01 DC 05/19/21 10:12 10 MG Lidocaine HCl (Lidocaine Pf 2% Vial) 5 ml RTQID 05/19/21 12:00 05/19/21 11:35 5 ML Lorazepam (Ativan Inj) 1 mg 1X ONCE 05/19/21 11:00 05/19/21 11:01 DC 05/19/21 11:16 1 MG Lorazepam (Ativan) 1 mg 1X ONCE 05/19/21 10:00 05/19/21 10:01 DC 05/19/21 10:11 1 MG Allergies: Allergies: Allergies Coded Allergies Type Severity Reaction Last Updated Verified atorvastatin Allergy Intermediate 03/28/21 Yes onion Allergy Intermediate 03/28/21 Yes phenytoin Allergy Intermediate rash 03/28/21 Yes Physical Exam: PE: Constitutional: Well developed, well nourished, nontoxic in appearance, patient is tearful and anxious during physical examination, patient making stridorous type sounds while breathing however no audible stridor sounds when patient is redirected. HENT: Normocephalic, atraumatic. Oropharynx moist, pink, no deep tissue infectious process appreciated, no uvular edema or deviation, no laryngeal edema, no peritonsillar edema or cobblestoning, no postnasal drip appreciated, bilateral nasal turbinates moist, patent bilateral TMs within normal limits, no drainage from external auditory canals, there is no lymphadenopathy of the head or neck appreciated. Eyes: Conjunctiva normal, no discharge. Neck: Normal range of motion, no stridor. No nuchal rigidity, no meningismus signs. Cardiovascular: No cyanosis appreciated, distal cap refill less than 2 seconds. Regular rate and rhythm auscultation. Lungs & Thorax: Patient is in no respiratory distress, no audible adventitious lung sounds appreciated. Lung sounds clear to auscultation all lung miller. Abdomen: Nontender, no abnormalities noted. Skin: Warm, dry, no erythema, no rash. Back: No tenderness, no deformities. No left-sided or right-sided CVA TTP. Extremities: No tenderness, no cyanosis, no clubbing, ROM intact, no edema. Neurologic: Alert and oriented X 3, normal motor function, normal sensory function, no focal deficits noted. Psychologic: Affect normal, judgement normal, mood normal. Current Patient Data: Labs: Laboratory Tests Test 05/19/21 10:15 05/19/21 10:30 05/19/21 10:50 05/19/21 11:42 Influenza Type A Antigen Negative (NEGATIVE) Influenza Type B Antigen Negative (NEGATIVE) SARS-CoV-2 Antigen (Rapid) Negative (NEGATIVE) Group A Streptococcus Rapid Negative (NEGATIVE) White Blood Count 7.8 x10^3/uL (4.0-11.0) Red Blood Count 4.58 x10^6/uL (3.50-5.40) Hemoglobin 12.9 g/dL (12.0-15.5) Hematocrit 39.1 % (36.0-47.0) Mean Corpuscular Volume 85 fL (79-100) Mean Corpuscular Hemoglobin 28 pg (25-35) Mean Corpuscular Hemoglobin Concent 33 g/dL (31-37) Red Cell Distribution Width 13.1 % (11.5-14.5) Platelet Count 317 x10^3/uL (140-400) Neutrophils (%) (Auto) 64 % (31-73) Lymphocytes (%) (Auto) 25 % (24-48) Monocytes (%) (Auto) 7 % (0-9) Eosinophils (%) (Auto) 3 % (0-3) Basophils (%) (Auto) 1 % (0-3) Neutrophils # (Auto) 5.0 x10^3/uL (1.8-7.7) Lymphocytes # (Auto) 1.9 x10^3/uL (1.0-4.8) Monocytes # (Auto) 0.6 x10^3/uL (0.0-1.1) Eosinophils # (Auto) 0.3 x10^3/uL (0.0-0.7) Basophils # (Auto) 0.1 x10^3/uL (0.0-0.2) D-Dimer (Stefanie) 0.29 ug/mlFEU (0.00-0.50) Sodium Level 141 mmol/L (136-145) Potassium Level 4.3 mmol/L (3.5-5.1) Chloride Level 104 mmol/L (98-107) Carbon Dioxide Level 28 mmol/L (21-32) Anion Gap 9 (6-14) Blood Urea Nitrogen 13 mg/dL (7-20) Creatinine 0.9 mg/dL (0.6-1.0) Estimated GFR (Cockcroft-Gault) 62.5 BUN/Creatinine Ratio 14 (6-20) Glucose Level 91 mg/dL (70-99) Calcium Level 9.4 mg/dL (8.5-10.1) Total Bilirubin 0.3 mg/dL (0.2-1.0) Aspartate Amino Transferase (AST) 20 U/L (15-37) Alanine Aminotransferase (ALT) 35 U/L (14-59) Alkaline Phosphatase 74 U/L (46-116) Creatine Kinase 99 U/L (26-192) Creatine Kinase MB (Mass) 1.9 ng/mL (0.0-3.6) Creatine Kinase MB Relative Index 1.9 % (0-4) Troponin I High Sensitivity 7 ng/L (4-50) PP-Wtr-B-Type Natriuretic Peptide 213 pg/mL (0-124) H Total Protein 7.7 g/dL (6.4-8.2) Albumin 3.8 g/dL (3.4-5.0) Albumin/Globulin Ratio 1.0 (1.0-1.7) Urine Collection Type Void Urine Color Yellow Urine Clarity Clear Urine pH 7.0 (<5.0-8.0) Urine Specific Mulino 1.010 (1.000-1.030) Urine Protein Negative mg/dL (NEG-TRACE) Urine Glucose (UA) Negative mg/dL (NEG) Urine Ketones (Stick) Negative mg/dL (NEG) Urine Blood Negative (NEG) Urine Nitrite Negative (NEG) Urine Bilirubin Negative (NEG) Urine Urobilinogen Dipstick 0.2 mg/dL (0.2 mg/dL) Urine Leukocyte Esterase Trace (NEG) Urine RBC 0 /HPF (0-2) Urine WBC 1-4 /HPF (0-4) Urine Squamous Epithelial Cells Few /LPF Urine Bacteria Many /HPF (0-FEW) O2 Saturation 96 % (92-99) Arterial Blood pH 7.49 (7.35-7.45) H Arterial Blood pCO2 at Patient Temp 31 mmHg (35-46) L Arterial Blood pO2 at Patient Temp 75 mmHg (65-108) Arterial Blood HCO3 23 mmol/L (21-28) Arterial Blood Base Excess 1 mmol/L (-3-3) FiO2 21/ra Laboratory Tests 05/19/21 10:30 Laboratory Tests 05/19/21 10:30 Vital Signs: Vital Signs Date Time Temp Pulse Resp B/P (MAP) Pulse Ox O2 Delivery O2 Flow Rate FiO2 05/19/21 12:00 88 22 128/61 (83) 99 Room Air 05/19/21 09:32 96.8 96.8 EKG: EKG: EKG performed at 942 by ED nursing staff shows a normal sinus rhythm without other ectopy, MN interval 0.160, QTc interval 0.394, no acute STEMI, no ACS, no acute ischemia appreciated, EKG interpreted by ED attending physician Dr. Tomlin. Radiology/Procedures: Radiology/Procedures: STATUS: PRE ER ORD. PHYSICIAN: SULEMAN HAWKINS APRN REASON: Shortness of breath PROCEDURE: CHEST AP ONLY Single AP view of the chest. Comparison: 09/20/2020. Indication: Shortness of breath Findings: The heart is at the upper limits of normal but stable. There is no pneumothorax or effusion. No air space or interstitial disease. Impression: 1. No acute cardiopulmonary process. Electronically signed by: Timothy Mcnair MD (05/19/2021 10:20 AM) [id number] Course & Med Decision Making: Course & Med Decision Making Pertinent Labs and Imaging studies reviewed. (See chart for details) 56-year-old female, vital signs reviewed, presents to the emergency department concerning shortness of breath or chest pains. Patient's physical examination c oncerning for anxiety, viral syndrome, cough. Will order COVID-19 testing rapid/PCR, rapid flu testing, rapid strep testing, chest x-ray, CBC, CMP, high- sensitivity troponin I, lactic acid, NT proBNP, cardiac isoenzymes, urinalysis assay. Will order DuoNeb treatment, IV dexamethasone. [address] Tomlin examined patient at bedside, recommended Tessalon Perles for cough, lidocaine breathing treatment. Additional Ativan for ongoing anxious presentation. Upon reevaluation of the patient, the patient is in no apparent distress, lung sounds remain clear to auscultate all lung miller, remains nontoxic in appearance, patient's cough has resolved, discussed with patient negative for flu, negative for strep, negative for rapid with 19 testing however is positive for PCR. Discussed with patient home care instructions for Covid positive patients, will attach information to discharge documents, use of [id number] Tylenol and Motrin for fevers and chills, return to ER precautions and concerns, strict follow-up with primary care soon for ongoing management of Covid symptoms, patient gave verbal understanding of and is amenable to ED discharge planning. Discussed with the patient all findings and diagnostic testing as well as the need to follow-up with their primary care provider for further evaluation and treatment or return to the ED if any new or worsening symptoms. Strict return precautions were also discussed at length, the patient voiced understanding and agreement with the discharge planning. The patient was nontoxic in appearance, in no apparent distress, and hemodynamically stable at the time of disposition. Dragon Disclaimer: Dragon Disclaimer: This electronic medical record was generated, in whole or in part, using a voice recognition dictation system. Departure Departure Impression: Primary Impression: Lab test positive for detection of COVID-19 virus Additional Impression: Cough Disposition: 01 HOME / SELF CARE / HOMELESS Condition: GOOD Referrals: FABI FLANAGAN MD (PCP) Patient Instructions: Cough, Adult Additional Instructions: You were seen today in the emergency department for cough, your chest x-ray did not show concerning findings of pneumonia or other infectious process, your lab work did not show any concerning findings for infection, your heart enzymes were within normal limits, your EKG did not show any concerning findings. Your flu and strep tests were negative today, however as we discussed your COVID-19 PCR test was positive. Please continue to take [id number] Tylenol and or Motrin for returning aches and pains or fevers and chills. Please call your doctor this week to let them know you have been reinfected with the COVID-19 virus. Please return to the emergency department for worsening symptoms or other concerns. I have attached COVID-19 virus information to this document, please review. Thank you for visiting our Emergency Department. It was a pleasure taking care of you today in the emergency department and we appreciate you trusting us with your care. If any additional problems come up don't hesitate to return to visit us. Please follow up with your primary care provider so they can plan additional care if needed and know about the problem that you had. If symptoms worsen come back to the Emergency Department. Any concerning symptoms that start such as chest pain, shortness of air, weakness or numbness on one side of the body, running high fevers or any other concerning symptoms return to the ER. You have been tested for or diagnosed with COVID-19. It is an infection caused by a new type of coronavirus. COVID-19 will cause cold-like or mild flu symptoms in most. It can cause more severe symptoms like problems breathing in some. There is no treatment for COVID-19. The body will clear the infection over time. Self-care will help to ease discomfort. Steps to Take: Self-Care Rest as needed. Healthy habits may help you feel better. Steps include: Choose healthy foods including fruits and vegetables. Drink water throughout the day. Get plenty of sleep each night. If you smoke, try to quit. It may ease breathing. Avoid alcohol. Keep Others Healthy The virus can spread to others. Droplets are released every time you sneeze or cough. The droplets can get into the mouth, nose, or eyes of people near you and lead to infection. To lower the chances of spreading COVID-19 to others: Stay at home until your doctor has said it is safe to leave. If you tested positive this will mean staying isolated until both of the following are true: At least 7 days have passed since the start of illness. You are free of fever for at least 72 hours without the use of medicine. During this time: - Avoid public areas, events, or transportation. Do not return to work or school until your doctor has said it is safe to do so. - Call ahead if you need to go to a medical center. Let them know you may have COVID-19. It will help them guide you where to go. They may also ask you to wear a facemask when you come to the office. - If you call for emergency medical services, let them know you may have COVID- 19. While at home: - Try to avoid close contact with others. Stay about 6 feet away. - If possible, spend most of your time in a separate room from others. - Use a face mask if you will be in close contact with others such as sharing a room or vehicle. - Have someone wipe down common surfaces in the home. Use household master chef every day on areas like doorknobs, counters, or sinks. - Cough or sneeze into a tissue. Throw the tissue away right after use. If a tissue is not available, cough or sneeze into your elbow. - Wash your hands often. Wash them after sneezing or coughing. Use soap and water and wash for at least 20 seconds. Alcohol based hand stock sheets cleaner inspector can be used if soap and water is not available. - Do not prepare food for others. Avoid sharing personal items like forks, spoons, or toothbrushes. - Avoid close contact with pets while you are sick. There is no evidence of the virus passing to pets. This is a safety step until more is known about this virus. Isolation can be frustrating. Social interaction can help. Keep in touch with friends and family through phone and tech options. You can still interact with others in your home, just keep a safe distance of about 6 feet. Follow-up: Your doctors office will check in with you to see if there are any changes in your health. You may be asked to keep track of symptoms to share with them. They will also let you know when you are clear to be in public again. Problems to Look Out For: Contact your doctor if your recovery is not going as you expect. Get emergency care if you have problems such as: - Trouble breathing - Nonstop chest pain or pressure - Changes in awareness, confusion, or problems waking - Lips or face have bluish color - Worsening of symptoms If you think you have an emergency, call for emergency medical services right away. As taken from [facility] Benzonatate (BENZONATATE) 100 Mg Capsule 1 CAP PO TID for cough, #30 CAP 0 Refills Prov: ADAMSULEMAN WASHINGTON APRN 05/19/21 SULEMAN HAWKINS APRN May 19, 2021 13:11
[2021-05-19 15:30] VITALS: BP 126/64
--- NOTE | 2021-05-19 16:16 | NUR ---
IP: Attempted to contact pt concerning covid results. No answer, left a voicemail to return the call.
[2021-05-19] MEDS ORDERED: BENZ-8 PO (16:38)
[2021-05-19] MEDS ORDERED: KETOROLAC 30 MG/ML VIAL. IVP ONE (16:45)
--- NOTE | 2021-05-19 19:27 | EKG ---
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
--- NOTE | 2021-05-20 14:37 | NUR ---
IP: Informed pt of positive covid test and the need to quarantine for 10 days. Pt verbalized understanding.
== END 2021-05-19 17:00 | disposition home or self-care (01) ==
LOC: ER 09:21
DX: U07.1 COVID-19 (principal); J45.909 Unspecified asthma, uncomplicated; K21.9 Gastro-esophageal reflux disease without esophagitis; I10 Essential (primary) hypertension; K58.9 Irritable bowel syndrome, unspecified; I25.2 Old myocardial infarction; G43.909 Migraine, unspecified, not intractable, without status migrainosus; Z87.891 Personal history of nicotine dependence; Z91.018 Allergy to other foods; Z88.8 Allergy status to other drugs, medicaments and biological substances
CPT/HCPCS: 36415; 36600; 71045; 80053; 81001; 82553; 82805; 83880; 84484; 85025; 85379; 87040; 87070; 87086; 87426; 87804; 87880; 93005; 94640; 96374; 96375; 99285; J1100; J2060; U0003; U0005